=== PATIENT | male | born 1960 | race Caucasian/White ===

== ENCOUNTER 2016-07-12 22:04 | Observation (INO) | payer MEDICAID ==
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
[2016-07-12 22:39] LABS: ABSOLUTE BASOPHILS # (AUTO) 0.2 10^3/uL (0.0-0.2); ABSOLUTE EOSINOPHILS # (AUTO) 0.2 10^3/uL (0.0-0.6); ABSOLUTE LYMPHOCYTES (AUTO) 2.8 10^3/uL (0.5-4.7); ABSOLUTE MONOCYTES (AUTO) 0.9 10^3/uL (0.1-1.4); ABSOLUTE NEUT (AUTO) 12.1 10^3/uL (1.7-8.2); BASOPHILS % (AUTO) 1.3 % (0-2); EOSINOPHILS % (AUTO) 1.1 % (0-6); HEMATOCRIT 37.9 % (37.9-51.0); HGB HCT DIFFERENCE 1.1; LYMPHOCYTES % (AUTO) 17.5 % (13-45); MEAN CORPUSCULAR HEMOGLOBIN 30.3 pg (27.0-33.4); MEAN CORPUSCULAR HGB CONC 34.4 g/dL (32.0-36.0); MEAN CORPUSCULAR VOLUME 88 fl (80-97); MONOCYTES % (AUTO) 5.6 % (3-13); RED BLOOD COUNT 4.29 10^6/uL (4.35-5.55); RED CELL DISTRIBUTION WIDTH 13.5 % (11.5-14.0); SEGMENTED NEUTROPHILS % (AUTO) 74.5 % (42-78); WHITE BLOOD COUNT 16.3 10^3/uL (4.0-10.5)
[2016-07-12 22:43] LABS: APPEARANCE,URINE CLEAR; BILIRUBIN,URINE NEGATIVE (NEGATIVE); GLUCOSE, URINE NEGATIVE (NEGATIVE); KETONES,URINE NEGATIVE (NEGATIVE); LEUKOCYTE ESTERASE,URINE SMALL (NEGATIVE); NITRITE,URINE NEGATIVE (NEGATIVE); PROTEIN,URINE NEGATIVE (NEGATIVE); URINE SPECIFIC GRAVITY 1.003; UROBILINOGEN,URINE NEGATIVE mg/dL (<2.0)
[2016-07-12 22:55] LABS: ALANINE AMINOTRANSFERASE 21 U/L (21-72); ALBUMIN 4.2 g/dL (3.5-5.0); ALCOHOL < 10 mg/dL (NONE DETECTED); ALKALINE PHOSPHATASE 118 U/L (38-126); ANION GAP 9 (5-19); ASPARTATE AMINO TRANSFERASE 16 U/L (17-59); BILIRUBIN,DIRECT 0.2 mg/dL (0.0-0.4); BILIRUBIN,TOTAL 0.4 mg/dL (0.2-1.3); BLOOD UREA NITROGEN 13 mg/dL (7-20); CALCIUM 9.4 mg/dL (8.4-10.2); CARBON DIOXIDE 28 mmol/L (22-30); CHLORIDE 99 mmol/L (98-107); CREATININE RESULT 1.02 mg/dL (0.52-1.25); GLUCOSE 101 mg/dL (75-110); POTASSIUM 4.5 mmol/L (3.6-5.0); TOTAL PROTEIN 7.2 g/dL (6.3-8.2)
[2016-07-12 22:57] LABS: URINE BARBITURATES SCREEN NEGATIVE; URINE METHADONE SCREEN NEGATIVE; URINE OPIATES LOW NEGATIVE; URINE PHENCYCLIDINE SCREEN NEGATIVE
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
--- NOTE | 2016-07-12 23:30 | EKG REPORT ---
SEVERITY:- NORMAL ECG - SINUS RHYTHM : Confirmed by: Lele Welch 12-Jul-2016 23:29:25
[2016-07-13] MEDS ORDERED: LORAZEPAM INJ 2 MG/1 ML VIAL IM ONE (00:17)
[2016-07-13] MEDS ORDERED: LEVOFLOXACIN 750 MG TABLET PO ONE (04:41)
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
[2016-07-13] MEDS ORDERED: CLONAZEPAM 1 MG TABLET PO PRN (18:36)
[2016-07-13] MEDS ORDERED: (PENDING PHARMACY ID) (Dextran 70/Hypromellose [Artificial Tears] 1 DROP) OU PRN (18:36)
[2016-07-13] MEDS ORDERED: POLYVINYL ALCOHOL 1.4% OPH SOLN 15 ML OU PRN (18:42)
[2016-07-13] MEDS ORDERED: FINASTERIDE 5 MG TABLET PO ONE (19:00)
[2016-07-13] MEDS ORDERED: LORAZEPAM INJ 2 MG/1 ML VIAL IM PRN (20:15)
[2016-07-13] MEDS: CLONAZEPAM 1 MG TABLET PO SCH (21:12)
[2016-07-13] MEDS: HALOPERIDOL 5 MG TABLET PO SCH (21:13)
[2016-07-13] MEDS: MIRTAZAPINE 15 MG TABLET PO SCH (21:13)
[2016-07-13] MEDS: BENZTROPINE MESYLATE 1 MG TABLET PO SCH (21:13)
[2016-07-13] MEDS: TAMSULOSIN HCL 0.4 MG CAP.SR.24H PO SCH (21:13)
[2016-07-13] MEDS: GABAPENTIN 300 MG CAPSULE PO SCH (21:14)
[2016-07-13] MEDS ORDERED: LANSOPRAZOLE 30 MG TAB.RAP.DR PO ONE (21:30)
[2016-07-13] MEDS ORDERED: (PENDING PHARMACY ID) (Acetaminophen [Tylenol Extra Strength 500 Mg Tablet] 500 MG) PO SCH (22:00)
[2016-07-14] MEDS: ACETAMINOPHEN 325 MG TABLET PO SCH ×5 (01:40→22:31)
[2016-07-14] MEDS: GABAPENTIN 300 MG CAPSULE PO SCH ×3 (07:40→22:32)
[2016-07-14] MEDS: CLONAZEPAM 1 MG TABLET PO SCH ×3 (07:41→22:32)
[2016-07-14] MEDS: LANSOPRAZOLE 30 MG TAB.RAP.DR PO SCH (09:58)
[2016-07-14] MEDS: FINASTERIDE 5 MG TABLET PO SCH (09:58)
[2016-07-14] MEDS: BENZTROPINE MESYLATE 1 MG TABLET PO SCH ×2 (09:58→22:32)
[2016-07-14] MEDS: HALOPERIDOL 5 MG TABLET PO SCH ×2 (09:59→22:32)
[2016-07-14] MEDS ORDERED: (PENDING PHARMACY ID) (Clonazepam [Klonopin] 0.5 MG) PO SCH (10:00)
[2016-07-14] MEDS ORDERED: (PENDING PHARMACY ID) (Alfuzosin Hcl [Alfuzosin Hcl Er] 10 MG) PO SCH (18:00)
[2016-07-14] MEDS ORDERED: LORAZEPAM INJ 2 MG/1 ML VIAL ONE (18:22)
[2016-07-14] MEDS: TAMSULOSIN HCL 0.4 MG CAP.SR.24H PO SCH (22:30)
[2016-07-14] MEDS: MIRTAZAPINE 15 MG TABLET PO SCH (22:32)
[2016-07-15] MEDS: CLONAZEPAM 1 MG TABLET PO SCH ×2 (05:53→14:00)
[2016-07-15] MEDS: GABAPENTIN 300 MG CAPSULE PO SCH ×2 (05:53→14:01)
[2016-07-15] MEDS: ACETAMINOPHEN 325 MG TABLET PO SCH ×2 (05:53→14:04)
[2016-07-15] MEDS: HALOPERIDOL 5 MG TABLET PO SCH (09:59)
[2016-07-15] MEDS: BENZTROPINE MESYLATE 1 MG TABLET PO SCH (09:59)
[2016-07-15] MEDS: FINASTERIDE 5 MG TABLET PO SCH (10:00)
[2016-07-15] MEDS: LANSOPRAZOLE 30 MG TAB.RAP.DR PO SCH (10:00)
[2016-07-15 11:59] VITALS: BP 122/73
== END 2016-07-15 15:00 | disposition home health service (06) ==
LOC: ER 22:04 → UNDOADMIN 07-13 04:54 → EH 07-13 04:54 → 4S 07-13 06:39 → EH 07-13 06:39 → INTOOBSV 07-13 06:51 → 4S 07-13 06:51 → 4N 07-13 14:26
PROVIDERS: ADMIT Internal Medicine; ATTEND Internal Medicine
PROC: 3E033GC Introduction of Other Therapeutic Substance into Peripheral Vein, Percutaneous Approach (ICD-10-PCS; principal; 2016-07-12)
DX: J18.9 Pneumonia, unspecified organism (principal); F03.91 Unspecified dementia, unspecified severity, with behavioral disturbance; F20.9 Schizophrenia, unspecified; J44.9 Chronic obstructive pulmonary disease, unspecified; J45.909 Unspecified asthma, uncomplicated; K21.9 Gastro-esophageal reflux disease without esophagitis; F17.200 Nicotine dependence, unspecified, uncomplicated
CPT/HCPCS: 93005; 99285; 96374; 36415; 87040; 80307 ×4; 85025; 80053; 81001; 71010; 93010; G0378 ×3; J3490 ×23; J2060 ×2

== ENCOUNTER 2018-08-08 22:22 | Emergency (ER) | payer MEDICAID ==
[2018-08-09] MEDS ORDERED: ACETAMINOPHEN 325 MG TABLET PO ONE (02:55)
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
[2018-08-09 04:42] VITALS: BP 149/88
== END 2018-08-09 04:42 | disposition home or self-care (01) ==
LOC: ER 22:22
DX: S09.93XA Unspecified injury of face, initial encounter (principal); Y04.2XXA Assault by strike against or bumped into by another person, initial encounter; Y92.199 Unspecified place in other specified residential institution as the place of occurrence of the external cause
CPT/HCPCS: 99283; J3490

== ENCOUNTER 2019-11-01 13:14 | Inpatient (IN) | payer MEDICAID ==
[2019-11-01 13:58] LABS: ABSOLUTE BASOPHILS # (AUTO) 0.1 10^3/uL (0.0-0.2); ABSOLUTE EOSINOPHILS # (AUTO) 0.1 10^3/uL (0.0-0.6); ABSOLUTE LYMPHOCYTES (AUTO) 1.3 10^3/uL (0.5-4.7); ABSOLUTE MONOCYTES (AUTO) 0.4 10^3/uL (0.1-1.4); ABSOLUTE NEUT (AUTO) 5.4 10^3/uL (1.7-8.2); BASOPHILS % (AUTO) 1.3 % (0-2); EOSINOPHILS % (AUTO) 1.4 % (0-6); HEMATOCRIT 39.7 % (37.9-51.0); HEMOGLOBIN 13.7 g/dL (13.5-17.0); LYMPHOCYTES % (AUTO) 18.2 % (13-45); MEAN CORPUSCULAR HEMOGLOBIN 29.9 pg (27.0-33.4); MEAN CORPUSCULAR HGB CONC 34.5 g/dL (32.0-36.0); MEAN CORPUSCULAR VOLUME 87 fl (80-97); MONOCYTES % (AUTO) 5.7 % (3-13); PLATELET COUNT 290 10^3/uL (150-450); RED BLOOD COUNT 4.57 10^6/uL (4.35-5.55); RED CELL DISTRIBUTION WIDTH 14.4 % (11.5-14.0); SEGMENTED NEUTROPHILS % (AUTO) 73.4 % (42-78); TOTAL CELLS COUNTED % (AUTO) 100 %; WHITE BLOOD COUNT 7.4 10^3/uL (4.0-10.5)
--- NOTE | 2019-11-01 14:06 | RADIOLOGY REPORT (SQ) ---
EXAM DESCRIPTION: CHEST SINGLE VIEW IMAGES COMPLETED DATE/TIME: 11/01/2019 1:44 pm REASON FOR STUDY: cough COMPARISON: 05/20/2015 EXAM PARAMETERS: NUMBER OF VIEWS: One view. TECHNIQUE: Single frontal radiographic view of the chest acquired. RADIATION DOSE: NA LIMITATIONS: None. FINDINGS: LUNGS AND PLEURA: There is hyperexpansion. No consolidations, pneumothorax or effusion. MEDIASTINUM AND HILAR STRUCTURES: No masses. Contour normal. HEART AND VASCULAR STRUCTURES: Heart normal in size. Normal vasculature. BONES: No acute findings. HARDWARE: None in the chest. OTHER: No other significant finding. IMPRESSION: COPD. No acute findings. TECHNICAL DOCUMENTATION: JOB ID: [id number] 2010 [employer]- All Rights Reserved Reading location - IP/workstation name: [email or web address]
[2019-11-01 14:18] LABS: ALBUMIN 3.8 g/dL (3.5-5.0); ALKALINE PHOSPHATASE 75 U/L (38-126); ANION GAP 10 (5-19); ASPARTATE AMINO TRANSFERASE 15 U/L (17-59); BILIRUBIN,TOTAL 0.4 mg/dL (0.2-1.3); BLOOD UREA NITROGEN 9 mg/dL (7-20); CALCIUM 9.3 mg/dL (8.4-10.2); CARBON DIOXIDE 24 mmol/L (22-30); CHLORIDE 94 mmol/L (98-107); GLUCOSE 113 mg/dL (75-110); POTASSIUM 4.5 mmol/L (3.6-5.0); TOTAL PROTEIN 6.7 g/dL (6.3-8.2)
--- NOTE | 2019-11-01 17:06 | ER Document Report ---
ED General - General Chief Complaint: Abnormal Lab Results Stated Complaint: ABNORMAL LABS Time Seen by Provider: 11/01/19 14:32 Primary Care Provider: JANAK FUNG MD [Primary Care Provider] - Follow up as needed Notes: This 59-year-old man presents to the emergency department with a history of abnormal labs at the [facility]. He has a past medical history of GERD, paranoid schizophrenia, incontinence, narcissistic personality disorder, pulmonary fibrosis, obesity and asthma. Apparently the patient is sodium was found to be very low at 122 according to the note from the [facility] fa cility. TRAVEL OUTSIDE OF THE [place] IN LAST 30 DAYS: No - Related Data Allergies/Adverse Reactions: No Known Allergies Allergy (Verified 08/08/18 22:28) Past Medical History - Social History Smoking Status: Unknown if Ever Smoked Family History: Reviewed & Not Pertinent - Past Medical History Cardiac Medical History: Denies: Hx Coronary Artery Disease, Hx Heart Attack, Hx Hypertension Pulmonary Medical History: Reports: Hx Asthma, Hx COPD Denies: Hx Bronchitis, Hx Pneumonia Neurological Medical History: Denies: Hx Cerebrovascular Accident, Hx Seizures Renal/ Medical History: Denies: Hx Peritoneal Dialysis GI Medical History: Reports: Hx Gastroesophageal Reflux Disease. Denies: Hx Hepatitis, Hx Hiatal Hernia, Hx Ulcer Musculoskeletal Medical History: Reports Hx Arthritis - (neck) Psychiatric Medical History: Reports: Hx Schizoaffective Disorder Denies: Hx Depression Infectious Medical History: Denies: Hx Hepatitis Past Surgical History: Denies: Hx Open Heart Surgery, Hx Pacemaker - Immunizations Hx Diphtheria, Pertussis, Tetanus Vaccination: Yes Review of Systems - Review of Systems Notes: Constitutional: Negative for fever. HENT: Negative for sore throat. Eyes: Negative for visual changes. Cardiovascular: Negative for chest pain. Respiratory: Negative for shortness of breath. Gastrointestinal: Negative for abdominal pain, vomiting or diarrhea. Genitourinary: Negative for dysuria. Musculoskeletal: Negative for back pain. Skin: Negative for rash. Neurological: Negative for headaches, weakness or numbness. 10 point ROS negative except as marked above and in HPI. Physical Exam - Vital signs Vitals: BP Pulse Ox 119/85 99 11/01/19 13:21 11/01/19 13:21 - Notes Notes: PHYSICAL EXAMINATION: Physical Exam: General: Well-nourished well-developed 59-year-old obese man in no acute distress HEENT: NC/AT, pupils equal round and reactive to light, MM moist,nares clear, oropharynx clear, airway patent Neck: supple, no adenopathy, no masses. Good range of motion Lungs: clear, no wheezing, no rales no rhonchi CVS: Regular rate and rhythm no murmur gallop or rub Abdomen: Soft, active, nontender, no masses, no hepatosplenomegaly Ext: No edema, clubbing or cyanosis. Neuro: Alert and responsive, moving all 4 extremities on command, cranial nerves intact, no focal findings Skin: Intact no open lesions, no rash Course - Re-evaluation Re-evalutation: 11/01/19 17:07 Patient noted to have a sodium of 127.7, higher than the 122 noted at the [facility]. - Vital Signs Vital signs: Temp Pulse Resp BP Pulse Ox 98.6 F 14 130/91 H 98 11/01/19 13:44 11/01/19 16:01 11/01/19 16:00 11/01/19 16:01 - Laboratory Result Diagrams: 11/01/19 13:30 11/01/19 13:30 Laboratory results interpreted by me: 11/01/19 11/01/19 13:30 13:30 RDW 14.4 H Sodium 127.9 L Chloride 94 L Glucose 113 H AST 15 L Discharge - Discharge Clinical Impression: Hyponatremia syndrome Condition: Good Disposition: ADMITTED OBSERVATION Admitting Provider: Roxy (Hospitalist) Unit Admitted: Telemetry Referrals: JANAK FUNG MD [Primary Care Provider] - Follow up as needed
--- NOTE | 2019-11-01 17:28 | EKG REPORT ---
SEVERITY:- NORMAL ECG - SINUS RHYTHM : Confirmed by: Clem Waters MD 01-Nov-2019 17:27:38
[2019-11-01] MEDS ORDERED: ACETAMINOPHEN 325 MG TABLET PO PRN (19:21)
[2019-11-01] MEDS ORDERED: MAG HYDROX/AL HYDROX/SIMETH SUSP 30 ML UDCUP PO PRN (19:21)
[2019-11-01] MEDS ORDERED: ONDANSETRON HCL INJ/PF 4 MG/2 ML SDV IV PRN (19:21)
[2019-11-01] MEDS ORDERED: ALBUTEROL SULFATE 0.083% NEB 2.5 MG/3 ML AMPUL NEB PRN (19:21)
[2019-11-01] MEDS ORDERED: HYDRALAZINE HCL INJ/PF 20 MG/1 ML SDV IV PRN (19:28)
--- NOTE | 2019-11-01 19:37 | PDOC H&P ---
History of Present Illness Admission Date/PCP: 11/01/19 18:16 JANAK FUNG MD Patient complains of: abnormal labs History of Present Illness: HU GARCIA is a 59 year old male with a past medical history significant for Schizophrenia, narcissistic personality disorder, BPH, GERD who presented to the emergency department today with a complaint of abnormal labs. Evaluation in the ED revealed HTN but otherwise nml vital signs, hyponatremia 127.9, nml CBC, benign CXR and EKG. Upon my evaluation, patient is alert and oriented to self, place, and situation. He is ambulatory. Conversational, socially appropriate. He denies all complaints. He is referred to the hospitalist service for admission and management of Hyponatremia. Past Medical History Cardiac Medical History: Denies: Coronary Artery Disease, Myocardial Infarction, Hypertension Pulmonary Medical History: Reports: Asthma, Chronic Obstructive Pulmonary Disease (COPD) Denies: Bronchitis, Pneumonia Neurological Medical History: Denies: Ischemic CVA, Seizures Endocrine Medical History: Reports: None Renal/ Medical History: Reports: None Malignancy Medical History: Reports: None GI Medical History: Reports: Gastroesophageal Reflux Disease Denies: Hepatitis, Hiatal Hernia Musculoskeltal Medical History: Reports: Arthritis Skin Medical History: Reports: None Psychiatric Medical History: Reports: Schizoaffective Disorder Denies: Depression Traumatic Medical History: Reports: None Hematology: Denies: Anemia, Sickle Cell Disease Infectious Medical History: Reports: None Past Surgical History Past Surgical History: Denies: Pacemaker Social History Information Source: Patient Lives with: [facility] Smoking Status: Former Smoker Frequency of Alcohol Use: None Hx Recreational Drug Use: No Drugs: None Hx Prescription Drug Abuse: No - Advance Directive Resuscitation Status: Full Code Family History Family History: None Parental Family History Reviewed: No - Patient unable to report Children Family History Reviewed: Unknown Sibling(s) Family History Reviewed.: Unknown Medication/Allergy Home Medications: Acetaminophen [Tylenol Extra Strength 500 mg Tablet] 500 mg PO QID 07/13/16 Alfuzosin HCl [Alfuzosin HCl ER] 10 mg PO QPM 07/13/16 Benztropine Mesylate [Cogentin 1 mg Tablet] 1 mg PO Q12 07/13/16 Clonazepam [Klonopin 1 mg Tablet] 1 mg PO BIDP PRN 07/13/16 Clonazepam [Klonopin] 0.5 mg PO TID 07/13/16 Dextran 70/Hypromellose [Artificial Tears] 1 drop OU Q4HP PRN 07/13/16 Finasteride [Proscar 5 mg Tablet] 5 mg PO DAILY 07/13/16 Gabapentin [Neurontin 300 mg Capsule] 600 mg PO Q8 07/13/16 Haloperidol 20 mg PO BID 07/13/16 Mirtazapine [Remeron 15 mg Tablet] 7.5 mg PO QHS 07/13/16 Omeprazole 40 mg PO DAILY 07/13/16 Allergies/Adverse Reactions: No Known Allergies Allergy (Verified 08/08/18 22:28) Review of Systems Constitutional: ABSENT: chills, fever(s), headache(s), weight gain, weight loss Eyes: ABSENT: visual disturbances Ears: ABSENT: hearing changes Cardiovascular: ABSENT: chest pain, dyspnea on exertion, edema, orthropnea, palpitations Respiratory: ABSENT: cough, hemoptysis Gastrointestinal: ABSENT: abdominal pain, constipation, diarrhea, hematemesis, hematochezia, nausea, vomiting Genitourinary: ABSENT: dysuria, hematuria Musculoskeletal: ABSENT: joint swelling Integumentary: ABSENT: rash, wounds Neurological: ABSENT: abnormal gait, abnormal speech, confusion, dizziness, focal weakness, syncope Psychiatric: ABSENT: anxiety, depression, homidical ideation, suicidal ideation Endocrine: ABSENT: cold intolerance, heat intolerance, polydipsia, polyuria Hematologic/Lymphatic: ABSENT: easy bleeding, easy bruising Physical Exam Vital Signs: Temp Pulse Resp BP Pulse Ox 98.6 F 15 178/111 H 100 11/01/19 13:44 11/01/19 18:01 11/01/19 18:00 11/01/19 18:01 Intake & Output 10/31/19 11/01/19 11/02/19 06:59 06:59 06:59 Weight 86.5 kg General appearance: PRESENT: no acute distress, cooperative, well-developed, well-nourished - overweight Head exam: PRESENT: atraumatic, normocephalic Eye exam: PRESENT: conjunctiva pink, EOMI, PERRLA. ABSENT: scleral icterus Ear exam: PRESENT: normal external ear exam Mouth exam: PRESENT: moist, tongue midline Neck exam: ABSENT: carotid bruit, JVD, lymphadenopathy, thyromegaly Respiratory exam: PRESENT: clear to auscultation alan, symmetrical, unlabored. ABSENT: rales, rhonchi, wheezes Cardiovascular exam: PRESENT: RRR, +S1, +S2. ABSENT: diastolic murmur, rubs, systolic murmur Vascular exam: PRESENT: normal capillary refill Extremities exam: PRESENT: full ROM. ABSENT: calf tenderness, clubbing, pedal edema Neurological exam: PRESENT: alert, awake, oriented to person, oriented to place, oriented to situation, CN II-XII grossly intact. ABSENT: motor sensory deficit Psychiatric exam: PRESENT: flat affect, normal mood. ABSENT: homicidal ideation, suicidal ideation Skin exam: PRESENT: dry, intact, warm. ABSENT: cyanosis, rash Results Laboratory Results: 11/01/19 13:30 11/01/19 13:30 11/01/19 11/01/19 13:30 13:30 WBC 7.4 RBC 4.57 Hgb 13.7 Hct 39.7 MCV 87 MCH 29.9 MCHC 34.5 RDW 14.4 H Plt Count 290 Seg Neutrophils % 73.4 Sodium 127.9 L Potassium 4.5 Chloride 94 L Carbon Dioxide 24 Anion Gap 10 BUN 9 Creatinine 1.15 Est GFR ( Amer) > 60 Glucose 113 H Calcium 9.3 Total Bilirubin 0.4 AST 15 L Alkaline Phosphatase 75 Total Protein 6.7 Albumin 3.8 Impressions: Chest X-Ray 11/01/19 00:00 IMPRESSION: COPD. No acute findings. Assessment and Plan - Diagnosis (1) Hyponatremia Is this a current diagnosis for this admission?: Yes Plan: Patient is admitted to the medical floor on continuous cardiac telemetry. He is placed on a regular diet; fluid restricted to 1.5 L daily. We will continue his home medication regiment pending mental health review and recommendations. Follow-up chemistry. (2) Schizophrenia Is this a current diagnosis for this admission?: Yes Plan: Continue home regimen. Mental Health consultation for medication review in setting of Hyponatremia. Mild-moderate chronic hyponatremia w/o symptoms may be preferable to uncontrolled schizophrenic/personality disorder symptoms. (3) Hypertension Is this a current diagnosis for this admission?: Yes Plan: Not on home medication regiment. IV hydralazine as needed for BP control. Monitor; may need to start oral antihypertensive. (4) BPH (benign prostatic hyperplasia) Qualifiers: Lower urinary tract symptom presence: symptoms absent Qualified Code(s): N40.0 - Benign prostatic hyperplasia without lower urinary tract symptoms Is this a current diagnosis for this admission?: Yes Plan: Continue home dose proscar. - Time Anticipated discharge: Home Within: within 48 hours
[2019-11-01] MEDS: BENZTROPINE MESYLATE 1 MG TABLET PO SCH (21:06)
[2019-11-01] MEDS: HEPARIN SOD (PORCINE) 5,000 UNIT/ML 1 ML VIAL SUBCUT SCH (21:06)
[2019-11-01] MEDS: CLONAZEPAM 1 MG TABLET PO SCH (21:06)
[2019-11-01] MEDS ORDERED: HALOPERIDOL 5 MG TABLET PO SCH (22:00)
[2019-11-01] MEDS ORDERED: MIRTAZAPINE 15 MG TABLET PO SCH (22:00)
[2019-11-01 23:38] LABS: AMORPHOUS SEDIMENT,URINE TRACE /HPF; APPEARANCE,URINE CLEAR; BILIRUBIN,URINE NEGATIVE (NEGATIVE); COLOR,URINE STRAW; GLUCOSE, URINE NEGATIVE (NEGATIVE); KETONES,URINE NEGATIVE (NEGATIVE); LEUKOCYTE ESTERASE,URINE LARGE (NEGATIVE); NITRITE,URINE NEGATIVE (NEGATIVE); PROTEIN,URINE NEGATIVE (NEGATIVE); URINE SPECIFIC GRAVITY 1.003; UROBILINOGEN,URINE NEGATIVE mg/dL (<2.0)
[2019-11-01 23:43] LABS: OSMOLALITY,URINE 134 mOsm/kg (300-900)
[2019-11-01 23:51] LABS: URINE SODIUM 25 mmol/L (30-90)
[2019-11-02] MEDS: HEPARIN SOD (PORCINE) 5,000 UNIT/ML 1 ML VIAL SUBCUT SCH ×3 (05:11→21:06)
[2019-11-02] MEDS: PANTOPRAZOLE SODIUM 40 MG TABLET.DR PO SCH (05:13)
[2019-11-02] MEDS: CLONAZEPAM 1 MG TABLET PO SCH (07:00)
[2019-11-02] MEDS: BENZTROPINE MESYLATE 1 MG TABLET PO SCH (09:48)
[2019-11-02] MEDS: DOCUSATE SODIUM 100 MG CAPSULE PO SCH (09:48)
[2019-11-02] MEDS ORDERED: HALOPERIDOL 5 MG TABLET PO SCH (10:00)
[2019-11-02] MEDS: HYDRALAZINE HCL 10 MG TABLET PO SCH ×2 (11:51→17:26)
[2019-11-02] MEDS: LISINOPRIL 10 MG TABLET PO SCH (11:52)
[2019-11-02] MEDS: FLUTICASONE/VILANTEROL 200-25 MCG/DOSE IH SCH (11:53)
[2019-11-02] MEDS: DIVALPROEX SODIUM 125 MG CAP.SPRINK PO SCH (11:53)
[2019-11-02] MEDS ORDERED: (PENDING PHARMACY ID) (Clonazepam [Klonopin] 0.5 MG) PO SCH (12:00)
[2019-11-02] MEDS ORDERED: CLONAZEPAM 1 MG TABLET PO SCH (12:00)
[2019-11-02 12:02] LABS: ANION GAP 9 (5-19); BLOOD UREA NITROGEN 11 mg/dL (7-20); CALCIUM 9.4 mg/dL (8.4-10.2); CARBON DIOXIDE 26 mmol/L (22-30); CHLORIDE 88 mmol/L (98-107); CHOLESTEROL 113.85 mg/dL (0-200); GLUCOSE 100 mg/dL (75-110); TRIGLYCERIDES 88 mg/dL (<150)
[2019-11-02 12:12] LABS: DIRECT LDL 43 mg/dL (<100)
[2019-11-02 12:14] LABS: POTASSIUM 4.7 mmol/L (3.6-5.0)
[2019-11-02] MEDS ORDERED: SODIUM CHLORIDE 1 GM TABLET PO ONE (13:00)
--- NOTE | 2019-11-02 13:51 | PSYCHOLOGICAL NOTE ---
Psych Note - Psych Note Date seen by psych provider: 11/02/19 Time seen by psych provider: 13:30 Psych Note: Reason for consult: Medication recommendations Patient discloses that he does not know exactly why he is here. Patient confirms he remembers being told there was concerns about his salt however states that this was yesterday. He confirms he understands now that this is still the current problem. He denies any psychiatric concerns at this time. Patient is alert and orientated to person, place, time and circumstance. Mood is euthymic with flat affect (patient has significant mental health history; affect probable baseline). Patient denies suicidal and homicidal ideation. Delusions are currently absent and behaviors congruent with an intact reality based presentation i.e. organized and linear thought process. Eye contact was well maintained. Conversational speech is slow and halting but easily understood. Intellectual abilities appear to be within the average range. Attention and concentration are fair. Insight, judgment, impulse control is fair. Medication recommendations per [facility]'s contracted psychiatrist Dr. Elmo TREJO are as follows Please discontinue home medication of Seroquel and Remeron Please decrease home medication of Haldol to 5 mg twice daily Please decrease home medication of Cogentin to 1 mg daily Please use home medication of Klonopin as a as needed only Impression\plan: Patient is cleared from acute psychiatric services. Patient is currently a medical patient due to hyponatremia. Medication recommendations were requested due to concerns that this could be contributing to his medical presentation. Medication recommendations have been provided. Though the psychiatric medications could be contributing to patient's current medical presentation, the patient not taking in fluids appropriately could also be a contributing factor. At this time the patient is denying any difficulty with hallucinations and is not demonstrating any behaviors of responding to internal stimuli. With medication adjustments, patient may experience through psychiatric symptoms. Please contact the behavioral health team for reconsult if this does become an issue. Dr. Lujan was consulted to care management of this patient; attending physicians in agreement with recommendations and disposition.
--- NOTE | 2019-11-02 14:22 | PDOC PROGRESS REPORT ---
Subjective Progress Note for:: 11/02/19 Subjective:: HU GARCIA is a 59 year old male with a past medical history significant for Schizophrenia, narcissistic personality disorder, BPH, GERD who was admitted 11/01/2019 for hyponatremia. Patient was seen on morning rounds. He is found ambulating in his room. He is alert and oriented to self, place, situation. At the moment, he is conversational and socially appropriate. He tells me that he is very thirsty and admits that he has had 2 to 3 cups of water from the sink. Otherwise, he states that he is feeling well and denies all symptoms. He tells me that I must be mistaken when I mentioned that his sodium is low. He denies headaches, dizziness, fatigue, chest pain, palpitations, dyspnea, abdominal pain, nausea and vomiting. He has no questions or concerns at this time; states that he wants to go home. Per nursing, patient has refused medications on multiple attempts (eventually did take a.m. medications) refused lab draw twice, and has removed his IV and declining to have one restarted. Reason For Visit: HYPONATREMIA Physical Exam Vital Signs: Temp Pulse Resp BP Pulse Ox 97.3 F 81 12 167/96 H 100 11/02/19 12:00 11/02/19 12:00 11/02/19 12:00 11/02/19 12:00 11/02/19 12:00 Intake & Output 11/01/19 11/02/19 11/03/19 06:59 06:59 06:59 Intake Total 444 948 Output Total 200 Balance 244 948 Weight 84.4 kg General appearance: PRESENT: no acute distress, well-developed, well-nourished - Overweight. ABSENT: cooperative Head exam: PRESENT: atraumatic, normocephalic Eye exam: PRESENT: conjunctiva pink, EOMI, PERRLA. ABSENT: scleral icterus Mouth exam: PRESENT: moist, tongue midline Respiratory exam: PRESENT: clear to auscultation alan, symmetrical, unlabored. ABSENT: rales, rhonchi, wheezes Cardiovascular exam: PRESENT: RRR. ABSENT: diastolic murmur, rubs, systolic murmur Vascular exam: PRESENT: normal capillary refill Extremities exam: PRESENT: full ROM. ABSENT: calf tenderness, clubbing, pedal edema Musculoskeletal exam: PRESENT: ambulatory Neurological exam: PRESENT: alert, awake, oriented to person, oriented to place, oriented to situation, CN II-XII grossly intact. ABSENT: motor sensory deficit Psychiatric exam: PRESENT: flat affect, normal mood. ABSENT: homicidal ideation, suicidal ideation Skin exam: PRESENT: dry, intact, warm. ABSENT: cyanosis, rash Results Laboratory Results: 11/01/19 13:30 11/02/19 11:20 11/01/19 11/01/19 11/01/19 13:30 20:01 23:20 Sodium 127.9 L Potassium 4.5 Chloride 94 L Carbon Dioxide 24 Anion Gap 10 BUN 9 Creatinine 1.15 Est GFR ( Amer) > 60 Glucose 113 H Serum Osmolality 267 L Calcium 9.3 Total Bilirubin 0.4 AST 15 L Alkaline Phosphatase 75 Total Protein 6.7 Albumin 3.8 Triglycerides Cholesterol LDL Cholesterol Direct VLDL Cholesterol HDL Cholesterol TSH Urine Color Urine Appearance Urine pH Ur Specific [place] Urine Protein Urine Glucose (UA) Urine Ketones Urine Blood Urine Nitrite Ur Leukocyte Esterase Urine WBC (Auto) Urine RBC (Auto) Urine Osmolality 134 L 11/01/19 11/02/19 11/02/19 23:20 11:20 11:20 Sodium 122.8 L Potassium 4.7 Chloride 88 L Carbon Dioxide 26 Anion Gap 9 BUN 11 Creatinine 1.06 Est GFR ( Amer) > 60 Glucose 100 Serum Osmolality Calcium 9.4 Total Bilirubin AST Alkaline Phosphatase Total Protein Albumin Triglycerides 88 Cholesterol 113.85 LDL Cholesterol Direct 43 VLDL Cholesterol 18.0 HDL Cholesterol 56 TSH 0.72 Urine Color STRAW Urine Appearance CLEAR Urine pH 7.0 Ur Specific [place] 1.003 Urine Protein NEGATIVE Urine Glucose (UA) NEGATIVE Urine Ketones NEGATIVE Urine Blood SMALL H Urine Nitrite NEGATIVE Ur Leukocyte Esterase LARGE H Urine WBC (Auto) 27 Urine RBC (Auto) 2 Urine Osmolality Impressions: Chest X-Ray 11/01/19 00:00 IMPRESSION: COPD. No acute findings. Assessment and Plan - Diagnosis (1) Hyponatremia Is this a current diagnosis for this admission?: Yes Plan: Worsened; 127.9-> 122.8 Patient is admitted to the medical floor on continuous cardiac telemetry. He is placed on a regular diet; fluid restricted to 1 L daily. Mental health consultation has been obtained; psychiatric medications adjusted per their recommendations. I have asked nursing to to restrict the patient's access to water in his room; remove his cup and water jug. Document any water observed obtained from the sink. Patient currently refusing IV fluids; will provide NaCl 2 gm p.o. Strict I&Os Serial chemistry. (2) Schizophrenia Is this a current diagnosis for this admission?: Yes Plan: Mental Health consultation for medication review in setting of Hyponatremia. Mild-moderate chronic hyponatremia w/o symptoms may be preferable to uncontrolled schizophrenic/personality disorder symptoms. Medications adjusted per their recommendations. (3) Hypertension Is this a current diagnosis for this admission?: Yes Plan: Continues to be hypertensive. Not on home medication regiment. We will start p.o. amlodipine. IV hydralazine as needed for BP control. (4) BPH (benign prostatic hyperplasia) Qualifiers: Lower urinary tract symptom presence: symptoms absent Qualified Code(s): N40.0 - Benign prostatic hyperplasia without lower urinary tract symptoms Is this a current diagnosis for this admission?: Yes Plan: Continue home dose proscar. - Time Time Spent with patient: 25-34 minutes Medications reviewed and adjusted accordingly: Yes Anticipated discharge: Home Within: Other
[2019-11-02 16:19] LABS: ANION GAP 10 (5-19); BLOOD UREA NITROGEN 16 mg/dL (7-20); CARBON DIOXIDE 27 mmol/L (22-30); CHLORIDE 82 mmol/L (98-107); GLUCOSE 98 mg/dL (75-110); POTASSIUM 4.5 mmol/L (3.6-5.0)
[2019-11-02] MEDS ORDERED: NORMAL SALINE 1000 ML 1,000 ML IV PRN (16:43)
[2019-11-02] MEDS: GABAPENTIN 300 MG CAPSULE PO SCH (17:26)
[2019-11-02] MEDS: DIVALPROEX SODIUM 250 MG TABLET.DR PO SCH (17:27)
[2019-11-02] MEDS ORDERED: QUETIAPINE FUMARATE 25 MG TABLET PO SCH (18:00)
[2019-11-02] MEDS: HALOPERIDOL 5 MG TABLET PO SCH (21:08)
[2019-11-02] MEDS ORDERED: AMLODIPINE BESYLATE 5 MG TABLET PO SCH (22:00)
[2019-11-03] MEDS: CLONAZEPAM 1 MG TABLET PO PRN ×2 (02:08→21:50)
[2019-11-03 02:50] LABS: ANION GAP 9 (5-19); BLOOD UREA NITROGEN 15 mg/dL (7-20); CALCIUM 9.5 mg/dL (8.4-10.2); CARBON DIOXIDE 25 mmol/L (22-30); CHLORIDE 88 mmol/L (98-107); GLUCOSE 106 mg/dL (75-110); POTASSIUM 4.2 mmol/L (3.6-5.0)
[2019-11-03] MEDS ORDERED: HALOPERIDOL PO SCH (06:00)
[2019-11-03] MEDS ORDERED: (PENDING PHARMACY ID) (Lisinopril [Lisinopril] 20 MG) PO SCH (06:00)
[2019-11-03] MEDS ORDERED: (PENDING PHARMACY ID) (Diltiazem Hcl [Diltiazem 24hr Er] 180 MG) PO SCH (06:00)
[2019-11-03] MEDS: PANTOPRAZOLE SODIUM 40 MG TABLET.DR PO SCH (07:58)
[2019-11-03] MEDS: HEPARIN SOD (PORCINE) 5,000 UNIT/ML 1 ML VIAL SUBCUT SCH ×3 (07:58→21:48)
[2019-11-03] MEDS ORDERED: GUAIFENESIN/D-METHORPHAN (200-20 MG) SYRUP 10 ML PO PRN (09:49)
[2019-11-03] MEDS: DILTIAZEM HCL 180 MG CAPSULE.CR PO SCH (10:20)
[2019-11-03] MEDS: BENZTROPINE MESYLATE 1 MG TABLET PO SCH (10:20)
[2019-11-03] MEDS: HYDRALAZINE HCL 10 MG TABLET PO SCH ×3 (10:20→17:37)
[2019-11-03] MEDS: FINASTERIDE 5 MG TABLET PO SCH (10:21)
[2019-11-03] MEDS: LISINOPRIL 10 MG TABLET PO SCH (10:21)
[2019-11-03] MEDS: HALOPERIDOL 5 MG TABLET PO SCH ×2 (10:21→21:47)
[2019-11-03] MEDS: FLUTICASONE/VILANTEROL 200-25 MCG/DOSE IH SCH (10:21)
[2019-11-03] MEDS: GABAPENTIN 300 MG CAPSULE PO SCH ×2 (10:24→17:37)
[2019-11-03] MEDS: DOCUSATE SODIUM 100 MG CAPSULE PO SCH (10:24)
[2019-11-03] MEDS: DIVALPROEX SODIUM 250 MG TABLET.DR PO SCH ×2 (10:24→17:37)
[2019-11-03] MEDS: DIVALPROEX SODIUM 125 MG CAP.SPRINK PO SCH (10:25)
[2019-11-03] MEDS ORDERED: IPRATROPIUM/ALBUTEROL 0.5-2.5 MG/3 ML AMPUL NEB ONE (11:30)
--- NOTE | 2019-11-03 13:02 | RADIOLOGY REPORT (SQ) ---
EXAM DESCRIPTION: CHEST SINGLE VIEW IMAGES COMPLETED DATE/TIME: 11/03/2019 12:50 pm REASON FOR STUDY: dyspnea, cough COMPARISON: Chest x-ray 11/01/2019, 05/20/2015, 04/15/2015. EXAM PARAMETERS: NUMBER OF VIEWS: One view. TECHNIQUE: Single frontal radiographic view of the chest acquired. RADIATION DOSE: NA LIMITATIONS: None. FINDINGS: LUNGS AND PLEURA: No consolidation, pneumothorax or pleural effusion. Hyperlucent lungs a re suggestive of emphysema. MEDIASTINUM AND HILAR STRUCTURES: No masses. Contour normal. HEART AND VASCULAR STRUCTURES: Heart normal in size. Normal vasculature. BONES: No acute findings. HARDWARE: None in the chest. IMPRESSION: NO ACUTE RADIOGRAPHIC FINDING IN THE CHEST. EMPHYSEMA. TECHNICAL DOCUMENTATION: JOB ID: [id number] [employer]- All Rights Reserved Reading location - IP/workstation name: [email or web address]
[2019-11-03] MEDS: IPRATROPIUM/ALBUTEROL 0.5-2.5 MG/3 ML AMPUL NEB SCH ×2 (14:08→20:18)
--- NOTE | 2019-11-03 14:42 | PDOC PROGRESS REPORT ---
Subjective Progress Note for:: 11/03/19 Subjective:: HU GARCIA is a 59 year old male with a past medical history significant for Schizophrenia, narcissistic personality disorder, BPH, GERD who was admitted 11/01/2019 for hyponatremia. Patient was seen on morning rounds. He is found ambulating in his room. He is alert and oriented to self, place, situation. He is conversational and socially appropriate. He complains of shortness of breath and a persistent, nonproductive cough. States, "its my smoker's cough." He asks for "something to help me breath." Vital signs are stable, SpO2 >98% on room air. He denies headaches, dizziness, fatigue, chest pain, palpitations, abdominal pain, nausea and vomiting. He has no other questions or concerns at this time. Per nursing, patient continues to intermittently refuse medications, labs, and vital signs. Reason For Visit: HYPONATREMIA Physical Exam Vital Signs: Temp Pulse Resp BP Pulse Ox 98.4 F 86 16 154/96 H 100 11/03/19 08:00 11/03/19 11:35 11/03/19 11:35 11/03/19 08:00 11/03/19 11:35 Intake & Output 11/02/19 11/03/19 11/04/19 06:59 06:59 06:59 Intake Total 444 1348 270 Output Total 200 Balance 244 1348 270 Weight 84.4 kg 86.9 kg General appearance: PRESENT: no acute distress, well-developed, well-nourished - Overweight Head exam: PRESENT: atraumatic, normocephalic Eye exam: PRESENT: conjunctiva pink, EOMI, PERRLA. ABSENT: scleral icterus Mouth exam: PRESENT: moist, tongue midline Respiratory exam: PRESENT: rhonchi, symmetrical, unlabored, wheezes. ABSENT: rales Cardiovascular exam: PRESENT: RRR. ABSENT: diastolic murmur, rubs, systolic murmur Vascular exam: PRESENT: normal capillary refill Extremities exam: PRESENT: full ROM. ABSENT: calf tenderness, clubbing, pedal edema Musculoskeletal exam: PRESENT: ambulatory Neurological exam: PRESENT: alert, awake, oriented to person, oriented to place, CN II-XII grossly intact. ABSENT: motor sensory deficit Psychiatric exam: PRESENT: appropriate affect, normal mood. ABSENT: homicidal ideation, suicidal ideation Skin exam: PRESENT: dry, intact, warm. ABSENT: cyanosis, rash Results Laboratory Results: 11/01/19 13:30 11/03/19 02:22 11/02/19 11/03/19 15:40 02:22 Sodium 118.9 L* 122.3 L Potassium 4.5 4.2 Chloride 82 L 88 L Carbon Dioxide 27 25 Anion Gap 10 9 BUN 16 15 Creatinine 1.10 0.98 Est GFR ( Amer) > 60 > 60 Glucose 98 106 Calcium 9.0 9.5 Magnesium 1.3 L Impressions: Chest X-Ray 11/03/19 00:00 IMPRESSION: NO ACUTE RADIOGRAPHIC FINDING IN THE CHEST. EMPHYSEMA. Assessment and Plan - Diagnosis (1) Hyponatremia Is this a current diagnosis for this admission?: Yes Plan: Worsened; 127.9-> 122.8-> 118.9-> 122.3 Patient is admitted to the medical floor on continuous cardiac telemetry. He is placed on a regular diet; fluid restricted to 1 L daily. Mental health consultation has been obtained; psychiatric medications adjusted per their recommendations. I have asked nursing to to restrict the patient's access to water in his room; remove his cup and water jug. Document any water observed obtained from the sink. Strict I&Os Follow up chemistry. (2) Schizophrenia Is this a current diagnosis for this admission?: Yes Plan: Mental Health consultation for medication review in setting of Hyponatremia. Mild-moderate chronic hyponatremia w/o symptoms may be preferable to uncontrolled schizophrenic/personality disorder symptoms. Medications adjusted per their recommendations. Have asked discharge planning with assistance in determining if patient has self-capacity or has been previously placed in the custody of family/state. (3) Hypertension Is this a current diagnosis for this admission?: Yes Plan: Continues to be hypertensive. Continue amlodipine. Resume home dose diltiazem, hydralazine, and lisinopril IV hydralazine as needed for BP control. (4) BPH (benign prostatic hyperplasia) Qualifiers: Lower urinary tract symptom presence: symptoms absent Qualified Code(s): N40.0 - Benign prostatic hyperplasia without lower urinary tract symptoms Is this a current diagnosis for this admission?: Yes Plan: Continue home dose proscar. (5) Emphysema lung Qualifiers: Emphysema type: unspecified Qualified Code(s): J43.9 - Emphysema, un specified Is this a current diagnosis for this admission?: Yes Plan: Emphysema with acute exacerbation. Patient complains of shortness of breath; found to have wheezing and rhonchi on exam. Chest x-ray shows emphysema; no acute process. As needed nebulizer treatments. Continue home dose Breo. Robitussin as needed. Avoid steroid therapy if possible r/t multiple psychiatric medication changed made yesterday. - Time Time Spent with patient: 35 or more minutes Medications reviewed and adjusted accordingly: Yes Anticipated discharge: Home Within: Other
[2019-11-03] MEDS: AMLODIPINE BESYLATE 5 MG TABLET PO SCH (21:47)
[2019-11-04] MEDS: IPRATROPIUM/ALBUTEROL 0.5-2.5 MG/3 ML AMPUL NEB SCH ×4 (02:41→19:35)
[2019-11-04] MEDS: HEPARIN SOD (PORCINE) 5,000 UNIT/ML 1 ML VIAL SUBCUT SCH ×3 (05:27→21:06)
[2019-11-04] MEDS: LISINOPRIL 10 MG TABLET PO SCH (05:34)
[2019-11-04] MEDS: FINASTERIDE 5 MG TABLET PO SCH (05:34)
[2019-11-04] MEDS: GABAPENTIN 300 MG CAPSULE PO SCH ×2 (05:35→17:58)
[2019-11-04] MEDS: DILTIAZEM HCL 180 MG CAPSULE.CR PO SCH (05:35)
[2019-11-04] MEDS: DIVALPROEX SODIUM 250 MG TABLET.DR PO SCH ×2 (05:35→17:58)
[2019-11-04] MEDS: PANTOPRAZOLE SODIUM 40 MG TABLET.DR PO SCH (05:36)
[2019-11-04] MEDS: HYDRALAZINE HCL 10 MG TABLET PO SCH ×3 (05:36→18:02)
[2019-11-04 06:59] LABS: ANION GAP 11 (5-19); BLOOD UREA NITROGEN 13 mg/dL (7-20); CALCIUM 9.1 mg/dL (8.4-10.2); CARBON DIOXIDE 25 mmol/L (22-30); CHLORIDE 86 mmol/L (98-107); GLUCOSE 98 mg/dL (75-110); POTASSIUM 4.3 mmol/L (3.6-5.0)
[2019-11-04] MEDS: DOCUSATE SODIUM 100 MG CAPSULE PO SCH (10:05)
[2019-11-04] MEDS: FLUTICASONE/VILANTEROL 200-25 MCG/DOSE IH SCH (10:05)
[2019-11-04] MEDS: HALOPERIDOL 5 MG TABLET PO SCH ×2 (10:05→21:05)
[2019-11-04] MEDS: BENZTROPINE MESYLATE 1 MG TABLET PO SCH (10:05)
[2019-11-04] MEDS: AMLODIPINE BESYLATE 5 MG TABLET PO SCH ×2 (10:05→21:05)
[2019-11-04] MEDS: SODIUM CHLORIDE 1 GM TABLET PO SCH (10:54)
[2019-11-04 12:31] LABS: URIC ACID 4.3 mg/dL (3.5-8.5)
[2019-11-04] MEDS: DIVALPROEX SODIUM 125 MG CAP.SPRINK PO SCH (12:51)
[2019-11-04 13:57] LABS: URINE SODIUM 17 mmol/L (30-90)
[2019-11-04 14:08] LABS: OSMOLALITY,URINE 97 mOsm/kg (300-900)
--- NOTE | 2019-11-04 15:12 | PDOC CONSULTATION ---
Consultation Consult Date: 11/04/19 Provider Consulted: SHARLENE IRIZARRY Consult reason:: Hyponatremia History of Present Illness Admission Date/PCP: 11/03/19 14:02 JANAK FUNG MD History of Present Illness: HU GARCIA is a 59 year old male with history of schizophrenia, narcissistic personality disorder, asthma/COPD, and BPH who was admitted on October 31 due to abnormal sodium of 127.9. Patient has been on antipsychotic medications including Depakote, Seroquel, clonazepam, benztropine, haloperidol and Remeron. Since admission this medications has been significantly adjusted. Apparently the patient has been refusing placement of IV access and has not had any IV fluids since admission. He is on fluid restriction initially at 1.5 L a day and then decrease to 1 L a day. He was also started on salt tablets initially given 2 g for a day followed by 1 g daily. Since admission the patient's sodium went from 127.9>122.8>118.9>122.3 and currently 121.7. His total protein is normal at 3.8 and cholesterol is normal at 113.85. His serum osmolality is 267. TSH is normal at 0.72. Initial urine osmolality was 134 with urine sodium of 25. Today I repeated his urine osmolality and it was 97, urine sodium of 17, cortisol of 12.5 and uric acid of 4.3. According to his nurse the patient has been drinking water wherever he can get it yesterday. Today the patient is not even being given a cup so that he does not have to drink water even from the faucet. I started the patient he really could not give me any significant information. He is a poor historian and does not want to answer so many questions. He said he drinks soda at home and does not tell me that he is drinking a lot of water. He said he feels fine and has good appetite. He denies any memory impairment recently including confusion. He denies feeling weak or tired. He denies feeling imbalance when he gets up and walk. He denies any chest pains, shortness of breath or edema. He denies any known problem with hyponatremia in the past. Past Medical History Pulmonary Medical History: Reports: Asthma, Chronic Obstructive Pulmonary Disease (COPD) Renal/ Medical History: Reports: Benign Prostatic Hyperplasia GI Medical History: Reports: Gastroesophageal Reflux Disease Musculoskeltal Medical History: Reports: Arthritis Psychiatric Medical History: Reports: Schizoaffective Disorder Past Surgical History Past Surgical History: Reports: None Social History Information Source: [facility] Records Lives with: [facility] Smoking Status: Former Smoker Electronic Cigarette use?: No Frequency of Alcohol Use: None Hx Recreational Drug Use: No Drugs: None Hx Prescription Drug Abuse: No - Advance Directive Resuscitation Status: Full Code Family History Family History: Unable to be obtained since patient does not want to answer so much questions and not sure if he does know his family history. Parental Family History Reviewed: No Children Family History Reviewed: No Sibling(s) Family History Reviewed.: No Medication/Allergy Home Medications: Acetaminophen [Tylenol Extra Strength 500 mg Tablet] 1,000 mg PO BID@0600,1800 07/13/16 Alfuzosin HCl [Alfuzosin HCl ER] 10 mg PO QPM 07/13/16 Benztropine Mesylate [Cogentin 1 mg Tablet] 1 mg PO BID@0600,1800 07/13/16 Clonazepam [Klonopin 1 mg Tablet] 0.5 mg PO Q6HP PRN 07/13/16 Clonazepam [Klonopin] 0.5 mg PO TID@0600,1200,1800 07/13/16 Finasteride [Proscar 5 mg Tablet] 5 mg PO Q6AM 07/13/16 Gabapentin [Neurontin 300 mg Capsule] 600 mg PO BID@0600,1800 07/13/16 Haloperidol 30 mg PO Q6AM 07/13/16 Mirtazapine [Remeron 15 mg Tablet] 7.5 mg PO 1800 07/13/16 Omeprazole 40 mg PO Q6AM 07/13/16 Acetaminophen [Tylenol] 650 mg PO Q4HP PRN 11/01/19 Budesonide/Formoterol Fumarate [Symbicort HFA 160-4.5 mcg Inhaler 6 gm] 2 puff IH BID@0600,1800 11/01/19 Calcium Carbonate [Tums Chewable 500 mg Tab.chew] 1,000 mg PO ASDIR PRN 11/01/19 Diltiazem HCl [Diltiazem 24Hr ER] 180 mg PO Q6AM 11/01/19 Divalproex Sodium [Depakote Sprinkle 125 mg Capsule] 125 mg PO NOON 11/01/19 Divalproex Sodium [Depakote] 250 mg PO BID@0600,1800 11/01/19 Guaifenesin/D-Methorphan Hb [Robitussin-Dm Syrup 10 ml Udcup] 10 ml PO Q4HP PRN 11/01/19 Hydralazine HCl [Apresoline 10 mg Tablet] 10 mg PO Q8@0600,1200,1800 11/01/19 Lisinopril 20 mg PO Q6AM 11/01/19 Quetiapine Fumarate [Seroquel 25 mg Tablet] 25 mg PO BID@0600,1800 11/01/19 Allergies/Adverse Reactions: No Known Allergies Allergy (Verified 08/08/18 22:28) Review of Systems All systems: reviewed and no additional remarkable complaints except as stated Review of Systems: Constitutional: ABSENT: chills, fatigue, fever(s), headache(s), weight gain, weight loss Eyes: ABSENT: visual disturbances Ears: ABSENT: hearing changes Cardiovascular: ABSENT: chest pain, dyspnea on exertion, edema, orthropnea, palpitations Respiratory: ABSENT: cough, dyspnea, hemoptysis Gastrointestinal: ABSENT: abdominal pain, constipation, diarrhea, hematemesis, hematochezia, nausea, vomiting Genitourinary: ABSENT: dysuria, hematuria Musculoskeletal: ABSENT: joint swelling Integumentary: ABSENT: rash, wounds Neurological: ABSENT: abnormal gait, abnormal speech, confusion, dizziness, focal weakness, numbness, syncope Psychiatric: ABSENT: anxiety, depression Endocrine: ABSENT: cold intolerance, heat intolerance, polydipsia, polyuria Hematologic/Lymphatic: ABSENT: easy bleeding, easy bruising, lymphadenopathy Physical Exam Vital Signs: Temp Pulse Resp BP Pulse Ox 98.9 F 83 14 124/89 H 97 11/04/19 05:23 11/04/19 08:18 11/04/19 08:18 11/04/19 05:23 11/04/19 08:18 Intake & Output 11/03/19 11/04/19 11/05/19 06:59 06:59 06:59 Intake Total 1348 1530 Balance 1348 1530 Weight 86.9 kg 87.6 kg Exam: General appearance: No acute distress, not very cooperative, well-developed, well-nourished Head exam: PRESENT: atraumatic, normocephalic Eye exam: PRESENT: Conjunctiva [place], EOMI, PERRLA. ABSENT: conjunctival injection, scleral icterus Mouth exam: PRESENT: moist, neck supple, tongue midline Neck exam: PRESENT: full ROM. ABSENT: carotid bruit, JVD, lymphadenopathy, thyromegaly Respiratory exam: PRESENT: clear to auscultation bilaterally. ABSENT: rales, rhonchi, stridor, wheezes Cardiovascular exam: PRESENT: RRR, +S1, +S2. ABSENT: systolic murmur Pulses: PRESENT: normal radial pulses, normal dorsalis pedis pulses GI/Abdominal exam: PRESENT: normal bowel sounds, soft. ABSENT: guarding, mass, tenderness Rectal exam: Deferred Extremities exam: PRESENT: full ROM. ABSENT: calf tenderness, pedal edema Musculoskeletal: PRESENT: full ROM. ABSENT: deformity Neurological exam: PRESENT: alert, Awake, Oriented to person, Oriented to place, Oriented to time, reflexes normal, CN II-XII grossly intact. ABSENT: motor sensory deficit Psychiatric exam: PRESENT: appropriate affect, normal mood. However refuses a lot of things including IV access ABSENT: homicidal ideation, suicidal ideation Skin exam: PRESENT: intact, dry, warm. ABSENT: rash Results Laboratory Results: 11/01/19 13:30 11/04/19 05:41 11/04/19 05:41 Sodium 121.7 L Potassium 4.3 Chloride 86 L Carbon Dioxide 25 Anion Gap 11 BUN 13 Creatinine 0.95 Est GFR ( Amer) > 60 Glucose 98 Calcium 9.1 Impressions: Chest X-Ray 11/03/19 00:00 IMPRESSION: NO ACUTE RADIOGRAPHIC FINDING IN THE CHEST. EMPHYSEMA. 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 He does appear to be clinically euvolemic. This might actually be chronic. Last normal sodium was noted in 2017. Patient has low urine osmolality disproportionate to serum osmolality. He has normal cortisol, thyroid function, protein and cholesterol. Needs water restriction specifically hypotonic fluids including water. I will decrease his water restriction to just 750 mL a day. Discontinue IV fluids. Agree with adjusting his psych medications. To start with, to produce aquaresis I will give the patient just a dose of tolvaptan. Continue to monitor sodium level. (2) Hypertension Is this a current diagnosis for this admission?: Yes Plan: Currently controlled. (3) Schizophrenia Is this a current diagnosis for this admission?: Yes Plan: Defer to hospitalist. - Notes Notes: Discussed with DERRICK Chan. Thank you very much for this consultation. - Time Time Spent: 50 to 70 Minutes
[2019-11-04] MEDS ORDERED: TOLVAPTAN 15 MG TABLET PO ONE (15:30)
[2019-11-04] MEDS ORDERED: TOLVAPTAN 15 MG TABLET PO PRN (16:21)
--- NOTE | 2019-11-04 16:56 | PDOC PROGRESS REPORT ---
Subjective Progress Note for:: 11/04/19 Subjective:: HU GARCIA is a 59 year old male with a past medical history significant for Schizophrenia, narcissistic personality disorder, BPH, GERD who was admitted 11/01/2019 for hyponatremia. Patient was seen on morning rounds. He is found ambulating in his room. He is alert and oriented to self, place, situation. He is conversational and socially appropriate. He states he is feeling well and denies all symptoms. He denies headaches, dizziness, fatigue, chest pain, palpitations, dyspnea, orthopnea, cough, abdominal pain, nausea and vomiting. He has no questions or concerns at this time. Per nursing, patient was found to be taking old/dirty drinking cups from food trays found in the hallway. He was also found to be saving medicine cups in order to be able to drink water from the sink. Reason For Visit: HYPONATREMIA Physical Exam Vital Signs: Temp Pulse Resp BP Pulse Ox 98.9 F 83 14 124/89 H 97 11/04/19 05:23 11/04/19 08:18 11/04/19 08:18 11/04/19 05:23 11/04/19 08:18 Intake & Output 11/03/19 11/04/19 11/05/19 06:59 06:59 06:59 Intake Total 1348 1530 Balance 1348 1530 Weight 86.9 kg 87.6 kg General appearance: PRESENT: no acute distress, well-developed, well-nourished - Overweight Head exam: PRESENT: atraumatic, normocephalic Eye exam: PRESENT: conjunctiva pink, EOMI, PERRLA. ABSENT: scleral icterus Mouth exam: PRESENT: moist, tongue midline Respiratory exam: PRESENT: clear to auscultation alan. ABSENT: rales, rhonchi, wheezes Cardiovascular exam: PRESENT: RRR. ABSENT: diastolic murmur, rubs, systolic murmur Vascular exam: PRESENT: normal capillary refill Extremities exam: PRESENT: full ROM. ABSENT: calf tenderness, clubbing, pedal edema Neurological exam: PRESENT: alert, awake, oriented to person, oriented to place, CN II-XII grossly intact, other - At baseline mentation. ABSENT: motor sensory deficit Psychiatric exam: PRESENT: flat affect, normal mood. ABSENT: homicidal ideation, suicidal ideation Skin exam: PRESENT: dry, intact, warm. ABSENT: cyanosis, rash Results Laboratory Results: 11/01/19 13:30 11/04/19 05:41 11/04/19 11/04/19 11/04/19 05:41 05:41 12:45 Sodium 121.7 L Potassium 4.3 Chloride 86 L Carbon Dioxide 25 Anion Gap 11 BUN 13 Creatinine 0.95 Est GFR ( Amer) > 60 Glucose 98 Uric Acid 4.3 Calcium 9.1 Urine Osmolality 97 L Impressions: Chest X-Ray 11/03/19 00:00 IMPRESSION: NO ACUTE RADIOGRAPHIC FINDING IN THE CHEST. EMPHYSEMA. Assessment and Plan - Diagnosis (1) Hyponatremia Is this a current diagnosis for this admission?: Yes Plan: Essentially unchanged; 127.9-> 122.8-> 118.9-> 122.3-> 121.7 Likely secondary to primary polydipsia. Possibly chronic hyponatremia. Patient is admitted to the medical floor on continuous cardiac telemetry. He is placed on a regular diet; fluid restricted to 750 ml daily. Mental health consultation has been obtained; psychiatric medications adjusted per their recommendations. I have asked nursing to to restrict the patient's access to water in his room; remove his cup and water jug. Document any water observed obtained from the sink. Nephrology is consulted; appreciate Dr. Nunes's assistance. Per Dr. Nunes, will receive 1 dose tolvaptan Strict I&Os Follow up chemistry. (2) Schizophrenia Is this a current diagnosis for this admission?: Yes Plan: Mental Health consultation for medication review in setting of Hyponatremia. Mild-moderate chronic hyponatremia w/o symptoms may be preferable to uncont rolled schizophrenic/personality disorder symptoms. Medications adjusted per their recommendations. Have asked discharge planning with assistance in determining if patient has self-capacity or has been previously placed in the custody of family/state. (3) Hypertension Is this a current diagnosis for this admission?: Yes Plan: Continues to be hypertensive. Continue amlodipine. Resume home dose diltiazem, hydralazine, and lisinopril IV hydralazine as needed for BP control. (4) BPH (benign prostatic hyperplasia) Qualifiers: Lower urinary tract symptom presence: symptoms absent Qualified Code(s): N40.0 - Benign prostatic hyperplasia without lower urinary tract symptoms Is this a current diagnosis for this admission?: Yes Plan: Continue home dose proscar. (5) Emphysema lung Qualifiers: Emphysema type: unspecified Qualified Code(s): J43.9 - Emphysema, unspecified Is this a current diagnosis for this admission?: Yes Plan: Emphysema with acute exacerbation. Chest x-ray shows emphysema; no acute process. As needed nebulizer treatments. Continue home dose Breo. Robitussin as needed. Avoid steroid therapy if possible r/t multiple psychiatric medication changed made yesterday. (6) Primary polydipsia Is this a current diagnosis for this admission?: Yes Plan: Management as above. - Time Time Spent with patient: 35 or more minutes Medications reviewed and adjusted accordingly: Yes Anticipated discharge: Home Within: Other
[2019-11-04 21:27] LABS: ANION GAP 10 (5-19); BLOOD UREA NITROGEN 21 mg/dL (7-20); CALCIUM 9.2 mg/dL (8.4-10.2); CARBON DIOXIDE 26 mmol/L (22-30); CHLORIDE 87 mmol/L (98-107); GLUCOSE 97 mg/dL (75-110); POTASSIUM 4.6 mmol/L (3.6-5.0)
[2019-11-05] MEDS: IPRATROPIUM/ALBUTEROL 0.5-2.5 MG/3 ML AMPUL NEB SCH ×4 (02:17→20:33)
[2019-11-05] MEDS: HEPARIN SOD (PORCINE) 5,000 UNIT/ML 1 ML VIAL SUBCUT SCH ×3 (05:28→21:11)
[2019-11-05] MEDS: FINASTERIDE 5 MG TABLET PO SCH (05:30)
[2019-11-05] MEDS: LISINOPRIL 10 MG TABLET PO SCH (05:30)
[2019-11-05] MEDS: GABAPENTIN 300 MG CAPSULE PO SCH ×2 (05:31→18:41)
[2019-11-05] MEDS: DILTIAZEM HCL 180 MG CAPSULE.CR PO SCH (05:31)
[2019-11-05] MEDS: PANTOPRAZOLE SODIUM 40 MG TABLET.DR PO SCH (05:31)
[2019-11-05] MEDS: HYDRALAZINE HCL 10 MG TABLET PO SCH ×3 (05:31→18:41)
[2019-11-05] MEDS: DIVALPROEX SODIUM 250 MG TABLET.DR PO SCH ×2 (05:32→18:41)
[2019-11-05] MEDS: AMLODIPINE BESYLATE 5 MG TABLET PO SCH ×2 (09:13→21:14)
[2019-11-05] MEDS: FLUTICASONE/VILANTEROL 200-25 MCG/DOSE IH SCH (09:13)
[2019-11-05] MEDS: DOCUSATE SODIUM 100 MG CAPSULE PO SCH (09:15)
[2019-11-05] MEDS: BENZTROPINE MESYLATE 1 MG TABLET PO SCH (09:15)
[2019-11-05] MEDS: SODIUM CHLORIDE 1 GM TABLET PO SCH (09:16)
[2019-11-05] MEDS: HALOPERIDOL 5 MG TABLET PO SCH ×2 (09:16→21:14)
[2019-11-05 10:29] LABS: ANION GAP 11 (5-19); BLOOD UREA NITROGEN 20 mg/dL (7-20); CALCIUM 9.5 mg/dL (8.4-10.2); CARBON DIOXIDE 22 mmol/L (22-30); CHLORIDE 98 mmol/L (98-107); GLUCOSE 107 mg/dL (75-110); POTASSIUM 4.8 mmol/L (3.6-5.0)
--- NOTE | 2019-11-05 11:53 | PDOC PROGRESS REPORT ---
Subjective Progress Note for:: 11/05/19 Subjective:: Patient remains to be clinically unchanged, he still refusing IV access and refusing blood draws. He finally did allow some blood drawn this morning though which is a good thing. He is a still being caught walking in the hallway getting used glasses or cups to get water from the faucet. He received a dose of tolvaptan yesterday and I restricted his water intake at 750 mL. He does not otherwise offer any complaints. Reason For Visit: HYPONATREMIA Physical Exam Vital Signs: Temp Pulse Resp BP Pulse Ox 98.7 F 72 16 100/60 97 11/04/19 23:27 11/05/19 02:18 11/05/19 02:18 11/05/19 08:00 11/05/19 02:18 Intake & Output 11/04/19 11/05/19 11/06/19 06:59 06:59 06:59 Intake Total 1530 820 Output Total 400 Balance 1530 420 Weight 87.6 kg 87.6 kg Exam: General appearance: PRESENT: no acute distress, not very cooperative, well- developed, well-nourished Head exam: PRESENT: atraumatic, normocephalic Eye exam: PRESENT: conjunctiva pink, PERRLA. ABSENT: scleral icterus Neck exam: ABSENT: JVD Respiratory exam: PRESENT: Normal breath sounds. ABSENT: crackles, rales, rhonchi, unlabored, wheezes Cardiovascular exam: PRESENT: Regular rate rhythm -+S1, +S2. ABSENT: diastolic murmur, systolic murmur GI/Abdominal exam: PRESENT: normal bowel sounds, soft. ABSENT: guarding, mass, tenderness Extremities exam: ABSENT: No edema Neurological exam: PRESENT: alert, awake, oriented to person, place and time. Skin exam: PRESENT: dry, warm, Results Laboratory Results: 11/01/19 13:30 11/04/19 11/04/19 11/04/19 05:41 12:45 20:43 Sodium 123.2 L Potassium 4.6 Chloride 87 L Carbon Dioxide 26 Anion Gap 10 BUN 21 H Creatinine 1.41 H Est GFR ( Amer) > 60 Glucose 97 Uric Acid 4.3 Calcium 9.2 Urine Osmolality 97 L Impressions: Chest X-Ray 11/03/19 00:00 IMPRESSION: NO ACUTE RADIOGRAPHIC FINDING IN THE CHEST. EMPHYSEMA. Assessment & Plan - Diagnosis (1) Hyponatremia Is this a current diagnosis for this admission?: Yes Plan: Secondary to psychogenic polydipsia with antipsychotic medications as well. Now improved to 130.7 from 123.2 yesterday. Patient has received a dose of tolvaptan 15 mg with fluid restriction of 750 mL yesterday. I am going to incr ease his fluid restriction to 1200 mL a day in view of worsening kidney function. (2) Acute kidney injury Is this a current diagnosis for this admission?: Yes Plan: Most likely secondary to developing volume depletion secondary to fluid restriction imposed due to hyponatremia. I will increase the patient's fluid restriction to 1200 mL a day. If the patient would agree we can even give a little bit of normal saline but patient has been refusing IV access placement. (3) Hypertension Is this a current diagnosis for this admission?: Yes Plan: Controlled. (4) Schizophrenia Is this a current diagnosis for this admission?: Yes Plan: Hospitalist managing. - Time Time with patient: 15-25 minutes
--- NOTE | 2019-11-05 13:58 | PDOC PROGRESS REPORT ---
Subjective Progress Note for:: 11/05/19 Subjective:: HU GARCIA is a 59 year old male with a past medical history significant for Schizophrenia, narcissistic personality disorder, BPH, GERD who was admitted 11/01/2019 for hyponatremia. Patient was seen on morning rounds. He is found sitting in a chair at the doorway to his room. He is alert and oriented to self, place, situation. He is conversational and socially appropriate. He states he is feeling well. Agreeable to having his labs drawn at the moment. He denies headaches, dizziness, fatigue, chest pain, palpitations, dyspnea, orthopnea, cough, abdominal pain, nausea and vomiting. He has no questions or concerns at this time. No concerns per nursing. Reason For Visit: HYPONATREMIA Physical Exam Vital Signs: Temp Pulse Resp BP Pulse Ox 98.7 F 102 H 16 100/60 95 11/04/19 23:27 11/05/19 08:27 11/05/19 08:27 11/05/19 08:00 11/05/19 08:27 Intake & Output 11/04/19 11/05/19 11/06/19 06:59 06:59 06:59 Intake Total 1530 820 Output Total 400 Balance 1530 420 Weight 87.6 kg 87.6 kg General appearance: PRESENT: no acute distress, cooperative, well-developed, well-nourished Head exam: PRESENT: atraumatic, normocephalic Eye exam: PRESENT: conjunctiva pink, EOMI, PERRLA. ABSENT: scleral icterus Ear exam: PRESENT: normal external ear exam Mouth exam: PRESENT: moist, tongue midline Respiratory exam: PRESENT: clear to auscultation alan, symmetrical, unlabored. ABSENT: rales, rhonchi, wheezes Cardiovascular exam: PRESENT: RRR. ABSENT: diastolic murmur, rubs, systolic murmur Vascular exam: PRESENT: normal capillary refill Extremities exam: PRESENT: full ROM. ABSENT: calf tenderness, clubbing, pedal edema Musculoskeletal exam: PRESENT: ambulatory Neurological exam: PRESENT: alert, awake, oriented to person, oriented to place, oriented to situation, CN II-XII grossly intact, other - baseline mentation. ABSENT: motor sensory deficit Psychiatric exam: PRESENT: flat affect, normal mood. ABSENT: homicidal i deation, suicidal ideation Skin exam: PRESENT: dry, intact, warm. ABSENT: cyanosis, rash Results Laboratory Results: 11/01/19 13:30 11/05/19 09:36 11/04/19 11/04/19 11/05/19 12:45 20:43 09:36 Sodium 123.2 L 130.7 L Potassium 4.6 4.8 Chloride 87 L 98 Carbon Dioxide 26 22 Anion Gap 10 11 BUN 21 H 20 Creatinine 1.41 H 1.54 H Est GFR ( Amer) > 60 56 L Glucose 97 107 Calcium 9.2 9.5 Magnesium 2.0 Urine Osmolality 97 L Impressions: Chest X-Ray 11/03/19 00:00 IMPRESSION: NO ACUTE RADIOGRAPHIC FINDING IN THE CHEST. EMPHYSEMA. Assessment and Plan - Diagnosis (1) Hyponatremia Is this a current diagnosis for this admission?: Yes Plan: Essentially unchanged; 127.9-> 122.8-> 118.9-> 122.3-> 121.7-> 130 Likely secondary to primary polydipsia. Possibly chronic hyponatremia. Patient is admitted to the medical floor on continuous cardiac telemetry. He is placed on a regular diet; fluid restricted to 1200 ml daily. Mental health consultation has been obtained; psychiatric medications adjusted per their recommendations. I have asked nursing to to restrict the patient's access to water in his room; remove his cup and water jug. Document any water observed obtained from the sink. Nephrology is consulted; appreciate Dr. Nunes's assistance. Receive tolvaptan x1 Strict I&Os Follow up chemistry. (2) Schizophrenia Is this a current diagnosis for this admission?: Yes Plan: Mental Health consultation for medication review in setting of Hyponatremia. Mild-moderate chronic hyponatremia w/o symptoms may be preferable to uncon trolled schizophrenic/personality disorder symptoms. Medications adjusted per their recommendations. Have asked discharge planning with assistance in determining if patient has self-capacity or has been previously placed in the custody of family/state. (3) Hypertension Is this a current diagnosis for this admission?: Yes Plan: Continues to be hypertensive. Continue amlodipine. Resume home dose diltiazem, hydralazine, and lisinopril IV hydralazine as needed for BP control. (4) BPH (benign prostatic hyperplasia) Qualifiers: Lower urinary tract symptom presence: symptoms absent Qualified Code(s): N40.0 - Benign prostatic hyperplasia without lower urinary tract symptoms Is this a current diagnosis for this admission?: Yes Plan: Continue home dose proscar. (5) Emphysema lung Qualifiers: Emphysema type: unspecified Qualified Code(s): J43.9 - Emphysema, unspecified Is this a current diagnosis for this admission?: Yes Plan: Emphysema with acute exacerbation. Chest x-ray shows emphysema; no acute process. As needed nebulizer treatments. Continue home dose Breo. Robitussin as needed. Avoid steroid therapy if possible r/t multiple psychiatric medication changed made yesterday. (6) Primary polydipsia Is this a current diagnosis for this admission?: Yes Plan: Management as above. (7) Acute kidney injury Is this a current diagnosis for this admission?: Yes Plan: R/t fluid restrictions Nephrology consulted Increase p.o. fluids to 1200 ml daily PT continues to decline IVF - Time Time Spent with patient: 25-34 minutes Medications reviewed and adjusted accordingly: Yes Anticipated discharge: Home Within: Other
[2019-11-05] MEDS: DIVALPROEX SODIUM 125 MG CAP.SPRINK PO SCH (14:18)
[2019-11-06] MEDS: IPRATROPIUM/ALBUTEROL 0.5-2.5 MG/3 ML AMPUL NEB SCH ×4 (02:12→20:00)
[2019-11-06] MEDS: HEPARIN SOD (PORCINE) 5,000 UNIT/ML 1 ML VIAL SUBCUT SCH ×3 (05:27→21:01)
[2019-11-06] MEDS: FINASTERIDE 5 MG TABLET PO SCH (05:30)
[2019-11-06] MEDS: DIVALPROEX SODIUM 250 MG TABLET.DR PO SCH ×2 (05:30→17:24)
[2019-11-06] MEDS: GABAPENTIN 300 MG CAPSULE PO SCH ×2 (05:30→17:23)
[2019-11-06] MEDS: PANTOPRAZOLE SODIUM 40 MG TABLET.DR PO SCH (05:31)
[2019-11-06] MEDS: HYDRALAZINE HCL 10 MG TABLET PO SCH ×3 (05:32→17:23)
[2019-11-06] MEDS: LISINOPRIL 10 MG TABLET PO SCH (05:32)
[2019-11-06] MEDS: DILTIAZEM HCL 180 MG CAPSULE.CR PO SCH (05:32)
[2019-11-06 10:49] LABS: ANION GAP 9 (5-19); BLOOD UREA NITROGEN 23 mg/dL (7-20); CALCIUM 9.3 mg/dL (8.4-10.2); CARBON DIOXIDE 25 mmol/L (22-30); CHLORIDE 97 mmol/L (98-107); GLUCOSE 147 mg/dL (75-110); POTASSIUM 4.9 mmol/L (3.6-5.0)
[2019-11-06] MEDS: BENZTROPINE MESYLATE 1 MG TABLET PO SCH (11:11)
[2019-11-06] MEDS: HALOPERIDOL 5 MG TABLET PO SCH ×2 (11:11→21:04)
[2019-11-06] MEDS: FLUTICASONE/VILANTEROL 200-25 MCG/DOSE IH SCH (11:12)
[2019-11-06] MEDS: AMLODIPINE BESYLATE 5 MG TABLET PO SCH ×2 (11:12→21:04)
[2019-11-06] MEDS: DOCUSATE SODIUM 100 MG CAPSULE PO SCH (11:12)
[2019-11-06] MEDS: SODIUM CHLORIDE 1 GM TABLET PO SCH (11:15)
[2019-11-06] MEDS: DIVALPROEX SODIUM 125 MG CAP.SPRINK PO SCH (13:54)
--- NOTE | 2019-11-06 19:24 | PDOC PROGRESS REPORT ---
Subjective Progress Note for:: 11/06/19 Subjective:: Patient declined to answer questions. Reason For Visit: HYPONATREMIA Physical Exam Vital Signs: Temp Pulse Resp BP Pulse Ox 97.8 F 78 19 98/71 L 100 11/06/19 12:42 11/06/19 12:42 11/06/19 12:42 11/06/19 12:42 11/06/19 12:42 Intake & Output 11/05/19 11/06/19 11/07/19 06:59 06:59 06:59 Intake Total 820 1000 520 Output Total 400 Balance 420 1000 520 Weight 87.6 kg 87.6 kg General appearance: PRESENT: no acute distress, disheveled, well-developed, well-nourished. ABSENT: cooperative Head exam: PRESENT: atraumatic, normocephalic Eye exam: PRESENT: conjunctiva pink. ABSENT: scleral icterus Mouth exam: PRESENT: moist, tongue midline Neck exam: ABSENT: JVD Respiratory exam: PRESENT: clear to auscultation alan, decreased breath sounds - Air entry diminished at bases bilaterally, symmetrical, unlabored. ABSENT: accessory muscle use Cardiovascular exam: PRESENT: RRR, +S1, +S2 Vascular exam: PRESENT: normal capillary refill GI/Abdominal exam: PRESENT: normal bowel sounds, soft. ABSENT: distended, t enderness Rectal exam: PRESENT: deferred Extremities exam: ABSENT: clubbing, pedal edema Neurological exam: PRESENT: alert, other - Declines answering questions Psychiatric exam: ABSENT: agitated, anxious Skin exam: PRESENT: dry, warm Results Laboratory Results: 11/01/19 13:30 11/06/19 10:22 11/06/19 10:22 Sodium 130.6 L Potassium 4.9 Chloride 97 L Carbon Dioxide 25 Anion Gap 9 BUN 23 H Creatinine 1.45 H Est GFR ( Amer) > 60 Glucose 147 H Calcium 9.3 Impressions: Chest X-Ray 11/03/19 00:00 IMPRESSION: NO ACUTE RADIOGRAPHIC FINDING IN THE CHEST. EMPHYSEMA. 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 daily Continue divalproex 250 mg p.o. every 12 hours Continue gabapentin 600 mg p.o. every 12 hours Continue haloperidol 5 mg p.o. every 12 hours Continue clonazepam 0.5 mg p.o. 6 hours PRN (4) Hypertension Is this a current diagnosis for this admission?: Yes Plan: Adequate BP control Continue amlodipine 5 mg p.o. every 12 hours Continue diltiazem CD 180 mg p.o. daily Continue hydralazine 10 mg p.o. every 6 hours Continue lisinopril 20 mg p.o. daily (5) Emphysema lung Qualifiers: Emphysema type: unspecified Qualified Code(s): J43.9 - Emphysema, un specified Is this a current diagnosis for this admission?: Yes Plan: Stable on room air Continue Breo Ellipta daily Continue albuterol/ipratropium nebs every 6 hours CXR 11/03/2019: No acute radiographic findings in the chest. Emphysema. (6) BPH (benign prostatic hyperplasia) Qualifiers: Lower urinary tract symptom presence: symptoms absent Qualified Code(s): N40.0 - Benign prostatic hyperplasia without lower urinary tract symptoms Is this a current diagnosis for this admission?: Yes Plan: Continue finasteride 5 mg p.o. daily (7) Acute kidney injury Is this a current diagnosis for this admission?: Yes Plan: Slight improvement in serum creatinine today Nephrology following patient Patient has in the past and continues to decline IV fluids - Time Time Spent with patient: 25-34 minutes Medications reviewed and adjusted accordingly: Yes Anticipated discharge: Other Within: Other
--- NOTE | 2019-11-06 22:05 | PDOC PROGRESS REPORT ---
Subjective Progress Note for:: 11/06/19 Subjective:: Patient is clinically stable. He initially refused blood work this morning so I had to reorder it again unfortunately agreed the second time. He does not offer verbalize much complaints. Per the intake and output record, he seems to be complying with the ordered fluid restriction. Reason For Visit: HYPONATREMIA Physical Exam Vital Signs: Temp Pulse Resp BP Pulse Ox 98.6 F 71 20 106/65 99 11/06/19 08:02 11/06/19 08:02 11/06/19 08:02 11/06/19 08:02 11/06/19 08:02 Intake & Output 11/05/19 11/06/19 11/07/19 06:59 06:59 06:59 Intake Total 820 1000 400 Output Total 400 Balance 420 1000 400 Weight 87.6 kg 87.6 kg Exam: General appearance: PRESENT: no acute distress, cooperative, well-developed, well-nourished Head exam: PRESENT: atraumatic, normocephalic Eye exam: PRESENT: conjunctiva slightly pale, PERRLA. ABSENT: scleral icterus Neck exam: ABSENT: JVD Respiratory exam: PRESENT: Normal breath sounds. ABSENT: crackles, rales, rhonchi, unlabored, wheezes Cardiovascular exam: PRESENT: Regular rate rhythm -+S1, +S2. ABSENT: diastolic murmur, systolic murmur GI/Abdominal exam: PRESENT: normal bowel sounds, soft. ABSENT: guarding, mass, tenderness Extremities exam: ABSENT: No edema Neurological exam: PRESENT: alert, awake, flat affect. Skin exam: PRESENT: dry, warm,dry skin Results Laboratory Results: 11/01/19 13:30 11/06/19 10:22 11/06/19 10:22 Sodium 130.6 L Potassium 4.9 Chloride 97 L Carbon Dioxide 25 Anion Gap 9 BUN 23 H Creatinine 1.45 H Est GFR ( Amer) > 60 Glucose 147 H Calcium 9.3 Impressions: Chest X-Ray 11/03/19 00:00 IMPRESSION: NO ACUTE RADIOGRAPHIC FINDING IN THE CHEST. EMPHYSEMA. Assessment & Plan - Diagnosis (1) Hyponatremia Is this a current diagnosis for this admission?: Yes Plan: Secondary to psychogenic polydipsia with antipsychotic medications as well. Sodium stable at 130. Patient has received a dose of Tolvaptan 15 mg . Currently with fluid restriction at 1200ml/day. Continue the same. (2) Acute kidney injury Is this a current diagnosis for this admission?: Yes Plan: Most likely secondary to developing volume depletion secondary to fluid restriction imposed due to hyponatremia. Continue fluid restriction to 1200 mL a day. Creatinine slightly better today. continue the same. (3) Hypertension Is this a current diagnosis for this admission?: Yes Plan: Controlled. (4) Schizophrenia Is this a current diagnosis for this admission?: Yes Plan: Hospitalist managing. - Time Time with patient: 15-25 minutes
[2019-11-07] MEDS: IPRATROPIUM/ALBUTEROL 0.5-2.5 MG/3 ML AMPUL NEB SCH ×4 (02:03→21:01)
[2019-11-07] MEDS: HEPARIN SOD (PORCINE) 5,000 UNIT/ML 1 ML VIAL SUBCUT SCH ×3 (05:11→21:40)
[2019-11-07] MEDS: DILTIAZEM HCL 180 MG CAPSULE.CR PO SCH (05:14)
[2019-11-07] MEDS: HYDRALAZINE HCL 10 MG TABLET PO SCH ×3 (05:14→18:56)
[2019-11-07] MEDS: FINASTERIDE 5 MG TABLET PO SCH (05:14)
[2019-11-07] MEDS: PANTOPRAZOLE SODIUM 40 MG TABLET.DR PO SCH (05:14)
[2019-11-07] MEDS: GABAPENTIN 300 MG CAPSULE PO SCH ×2 (05:14→18:56)
[2019-11-07] MEDS: DIVALPROEX SODIUM 250 MG TABLET.DR PO SCH ×2 (05:14→18:56)
[2019-11-07] MEDS: LISINOPRIL 10 MG TABLET PO SCH (05:14)
[2019-11-07] MEDS: AMLODIPINE BESYLATE 5 MG TABLET PO SCH (11:19)
[2019-11-07] MEDS: BENZTROPINE MESYLATE 1 MG TABLET PO SCH (11:20)
[2019-11-07] MEDS: HALOPERIDOL 5 MG TABLET PO SCH ×2 (11:20→21:40)
[2019-11-07] MEDS: DOCUSATE SODIUM 100 MG CAPSULE PO SCH (11:20)
[2019-11-07] MEDS: FLUTICASONE/VILANTEROL 200-25 MCG/DOSE IH SCH (11:22)
[2019-11-07] MEDS: SODIUM CHLORIDE 1 GM TABLET PO SCH (11:22)
[2019-11-07 11:39] LABS: ANION GAP 11 (5-19); BLOOD UREA NITROGEN 27 mg/dL (7-20); CALCIUM 9.6 mg/dL (8.4-10.2); CARBON DIOXIDE 23 mmol/L (22-30); CHLORIDE 94 mmol/L (98-107); GLUCOSE 102 mg/dL (75-110); POTASSIUM 5.3 mmol/L (3.6-5.0)
[2019-11-07] MEDS: DIVALPROEX SODIUM 125 MG CAP.SPRINK PO SCH (11:44)
--- NOTE | 2019-11-07 12:42 | PDOC PROGRESS REPORT ---
Subjective Progress Note for:: 11/07/19 Reason For Visit: HYPONATREMIA Physical Exam Vital Signs: Temp Pulse Resp BP Pulse Ox 97.8 F 70 16 137/66 H 95 11/07/19 00:00 11/07/19 02:03 11/07/19 02:03 11/07/19 00:00 11/07/19 02:03 Intake & Output 11/06/19 11/07/19 11/08/19 06:59 06:59 06:59 Intake Total 1000 1260 Balance 1000 1260 Weight 87.6 kg 85.2 kg General appearance: PRESENT: no acute distress, cooperative, well-developed, well-nourished Head exam: PRESENT: atraumatic, normocephalic Eye exam: PRESENT: conjunctiva pink Mouth exam: PRESENT: moist, tongue midline Neck exam: ABSENT: JVD Respiratory exam: PRESENT: clear to auscultation alan, symmetrical, unlabored. ABSENT: accessory muscle use Cardiovascular exam: PRESENT: RRR, +S1, +S2 GI/Abdominal exam: PRESENT: normal bowel sounds, soft. ABSENT: distended, tenderness Rectal exam: PRESENT: deferred Extremities exam: ABSENT: calf tenderness, pedal edema Musculoskeletal exam: PRESENT: ambulatory Neurological exam: PRESENT: alert, awake, oriented to person, oriented to place, oriented to time, oriented to situation Psychiatric exam: ABSENT: agitated, anxious Skin exam: PRESENT: dry, normal color, warm Results Laboratory Results: 11/01/19 13:30 11/07/19 10:53 11/07/19 10:53 Sodium 127.5 L Potassium 5.3 H Chloride 94 L Carbon Dioxide 23 Anion Gap 11 BUN 27 H Creatinine 1.46 H Est GFR ( Amer) > 60 Glucose 102 Calcium 9.6 Impressions: Chest X-Ray 11/03/19 00:00 IMPRESSION: NO ACUTE RADIOGRAPHIC FINDING IN THE CHEST. EMPHYSEMA. Assessment and Plan - Diagnosis (1) Hyponatremia Is this a current diagnosis for this admission?: Yes Plan: Likely related to polydipsia and excessive free water intake Serum sodium down slightly today Continue 1200 cc fluid restriction with regular diet Psychiatric medications adjusted per recommendations of mental health outbound sales consultant Nephrology input appreciated Patient received 1 dose of tolvaptan Continue strict I/Os Monitor BMP (2) Primary polydipsia Is this a current diagnosis for this admission?: Yes Plan: Patient does not seem to be attempting to sneak excessive fluids See above for hyponatremia treatment (3) Schizophrenia Is this a current diagnosis for this admission?: Yes Plan: Mental Health was consulted and input/assistance appreciated Continue benztropine mesylate 1 mg p.o. daily Continue divalproex 250 mg p.o. every 12 hours Continue gabapentin 600 mg p.o. every 12 hours Continue haloperidol 5 mg p.o. every 12 hours Continue clonazepam 0.5 mg p.o. 6 hours PRN (4) Hypertension Is this a current diagnosis for this admission?: Yes Plan: Adequate BP control Continue amlodipine 5 mg p.o. every 12 hours Continue diltiazem CD 180 mg p.o. daily Continue hydralazine 10 mg p.o. every 6 hours Continue lisinopril 20 mg p.o. daily (5) Emphysema lung Qualifiers: Emphysema type: unspecified Qualified Code(s): J43.9 - Emphysema, unspecified Is this a current diagnosis for this admission?: Yes Plan: Stable on room air Continue Breo Ellipta daily Continue albuterol/ipratropium nebs every 6 hours CXR 11/03/2019: No acute radiographic findings in the chest. Emphysema. (6) BPH (benign prostatic hyperplasia) Qualifiers: Lower urinary tract symptom presence: symptoms absent Qualified Code(s): N40.0 - Benign prostatic hyperplasia without lower urinary tract symptoms Is this a current diagnosis for this admission?: Yes Plan: Continue finasteride 5 mg p.o. daily (7) Acute kidney injury Is this a current diagnosis for this admission?: Yes Plan: Renal function stable over past 24 hours Nephrology following patient Patient has in the past and continues to decline IV fluids - Time Time Spent with patient: 25-34 minutes Anticipated discharge: Other Within: Other
--- NOTE | 2019-11-07 13:45 | PDOC PROGRESS REPORT ---
Subjective Progress Note for:: 11/07/19 Subjective:: Patient remains to be stable. It takes a lot of encouraging for him to allow blood work. From the intake and output record it looks like he is able to maintain the fluid restriction that I have set. He does not verbalize any complaints. Reason For Visit: HYPONATREMIA Physical Exam Vital Signs: Temp Pulse Resp BP Pulse Ox 97.8 F 70 16 137/66 H 95 11/07/19 00:00 11/07/19 02:03 11/07/19 02:03 11/07/19 00:00 11/07/19 02:03 Intake & Output 11/06/19 11/07/19 11/08/19 06:59 06:59 06:59 Intake Total 1000 1260 Balance 1000 1260 Weight 87.6 kg 85.2 kg Exam: General appearance: PRESENT: no acute distress, cooperative, well-developed, well-nourished Head exam: PRESENT: atraumatic, normocephalic Eye exam: PRESENT: conjunctiva pink, PERRLA. ABSENT: scleral icterus Neck exam: ABSENT: JVD Respiratory exam: PRESENT: Normal breath sounds. ABSENT: crackles, rales, rhonchi, unlabored, wheezes Cardiovascular exam: PRESENT: Regular rate rhythm -+S1, +S2. ABSENT: diastolic murmur, systolic murmur GI/Abdominal exam: PRESENT: normal bowel sounds, soft. ABSENT: guarding, mass, tenderness Extremities exam: ABSENT: No edema Neurological exam: PRESENT: alert, awake, oriented to person, place and time. Answers questions appropriately Skin exam: PRESENT: dry, warm, dry skin Results Laboratory Results: 11/01/19 13:30 Impressions: Chest X-Ray 11/03/19 00:00 IMPRESSION: NO ACUTE RADIOGRAPHIC FINDING IN THE CHEST. EMPHYSEMA. Assessment & Plan - Diagnosis (1) Hyponatremia Is this a current diagnosis for this admission?: Yes Plan: Secondary to psychogenic polydipsia with antipsychotic medications as well. Sodium stable now at 127 until 130. Patient has received a dose of Tolvaptan 15 mg . Currently with fluid restriction at 1200ml/day. Continue the same. From nephrology standpoint I think her goal sodium for this patient is anything above 125. Considering his baseline schizophrenia it will be difficult to maintain a sodium level above 130 unless patient can adhere to his 1200 mL fluid restriction after discharge. (2) Acute kidney injury Is this a current diagnosis for this admission?: Yes Plan: Most likely secondary to developing volume depletion secondary to fluid restriction imposed due to hyponatremia. Continue fluid restriction to 1200 mL a day. Kidney function is stable. It is possible that this is actually the patient's baseline kidney function. (3) Hypertension Is this a current diagnosis for this admission?: Yes Plan: Controlled. (4) Hyperkalemia Is this a current diagnosis for this admission?: Yes Plan: Mild and can just be monitored. I will add low potassium diet. (5) Schizophrenia Is this a current diagnosis for this admission?: Yes Plan: Hospitalist managing. - Notes Notes: From nephrology standpoint I think the patient can be sent back to [facility]. - Time Time with patient: 15-25 minutes
[2019-11-07] MEDS ORDERED: AMLODIPINE BESYLATE 5 MG TABLET PO ONE (21:45)
[2019-11-07] MEDS ORDERED: AMLODIPINE BESYLATE 5 MG TABLET PO SCH (22:00)
[2019-11-07] MEDS: CLONAZEPAM 1 MG TABLET PO PRN (23:49)
[2019-11-08] MEDS: HYDROXYZINE PAMOATE 25 MG CAPSULE PO PRN ×2 (02:45→21:43)
[2019-11-08] MEDS: IPRATROPIUM/ALBUTEROL 0.5-2.5 MG/3 ML AMPUL NEB SCH ×4 (05:10→20:38)
[2019-11-08] MEDS: DILTIAZEM HCL 180 MG CAPSULE.CR PO SCH (05:28)
[2019-11-08] MEDS: GABAPENTIN 300 MG CAPSULE PO SCH ×2 (05:29→18:42)
[2019-11-08] MEDS: PANTOPRAZOLE SODIUM 40 MG TABLET.DR PO SCH (05:29)
[2019-11-08] MEDS: LISINOPRIL 10 MG TABLET PO SCH (05:29)
[2019-11-08 05:30] LABS: ANION GAP 12 (5-19); BLOOD UREA NITROGEN 20 mg/dL (7-20); CALCIUM 9.6 mg/dL (8.4-10.2); CARBON DIOXIDE 23 mmol/L (22-30); CHLORIDE 82 mmol/L (98-107); GLUCOSE 101 mg/dL (75-110); POTASSIUM 4.5 mmol/L (3.6-5.0)
[2019-11-08] MEDS: DIVALPROEX SODIUM 250 MG TABLET.DR PO SCH ×2 (05:30→18:42)
[2019-11-08] MEDS: HEPARIN SOD (PORCINE) 5,000 UNIT/ML 1 ML VIAL SUBCUT SCH ×3 (05:30→21:41)
[2019-11-08] MEDS: FINASTERIDE 5 MG TABLET PO SCH (05:30)
[2019-11-08] MEDS: HYDRALAZINE HCL 10 MG TABLET PO SCH ×3 (05:34→18:42)
--- NOTE | 2019-11-08 10:10 | PDOC PROGRESS REPORT ---
Subjective Progress Note for:: 11/08/19 Subjective:: Patient is sound asleep when I entered the room but he is arousable. He does not verbalize any complaints and he appears to be fine. Unfortunately for the past 24 hours his intake was as high as 2730 mL. The aide states that the patient has been drinking from the faucet water yesterday aside from the fluids that he is been given in the tray. His sodium has gone down low again today at 117. Reason For Visit: HYPONATREMIA Physical Exam Vital Signs: Temp Pulse Resp BP Pulse Ox 98.1 F 81 18 118/68 96 11/08/19 07:44 11/08/19 07:44 11/08/19 07:44 11/08/19 07:44 11/08/19 07:44 Intake & Output 11/07/19 11/08/19 11/09/19 06:59 06:59 06:59 Intake Total 1260 2730 380 Balance 1260 2730 380 Weight 85.2 kg 85.2 kg Exam: General appearance: PRESENT: no acute distress, cooperative, well-developed, well-nourished Head exam: PRESENT: atraumatic, normocephalic Eye exam: PRESENT: conjunctiva pink, PERRLA. ABSENT: scleral icterus Neck exam: ABSENT: JVD Respiratory exam: PRESENT: Normal breath sounds. ABSENT: crackles, rales, rhonchi, unlabored, wheezes Cardiovascular exam: PRESENT: Regular rate rhythm -+S1, +S2. ABSENT: diastolic murmur, systolic murmur GI/Abdominal exam: PRESENT: normal bowel sounds, soft. ABSENT: guarding, mass, tenderness Extremities exam: ABSENT: No edema Neurological exam: PRESENT: alert, awake, oriented to person, place and time. Skin exam: PRESENT: dry, warm, Results Laboratory Results: 11/01/19 13:30 11/08/19 04:29 11/07/19 11/08/19 10:53 04:29 Sodium 127.5 L 117.1 L* Potassium 5.3 H 4.5 Chloride 94 L 82 L Carbon Dioxide 23 23 Anion Gap 11 12 BUN 27 H 20 Creatinine 1.46 H 1.07 Est GFR ( Amer) > 60 > 60 Glucose 102 101 Calcium 9.6 9.6 Impressions: Chest X-Ray 11/03/19 00:00 IMPRESSION: NO ACUTE RADIOGRAPHIC FINDING IN THE CHEST. EMPHYSEMA. Assessment & Plan - Diagnosis (1) Hyponatremia Is this a current diagnosis for this admission?: Yes Plan: Secondary to psychogenic polydipsia with antipsychotic medications as well. Patient has received a dose of Tolvaptan 15 mg on 11/03. Currently with fluid res triction at 1200ml/day. From nephrology standpoint I think our goal sodium for this patient is anything above 125. Considering his baseline schizophrenia it will be difficult to maintain a sodium level above 130 unless patient can adhere to his 1200 mL fluid restriction after discharge. Unfortunately the patient exceeded his fluid restriction limit for the last 24 hours and so his sodium went back down to 117.1 today. I talked to the patient's nurse, Libra and mildred to enforce the fluid restriction and the possibly close off faucet in his room so that he can only drink what is in his tray. I will give another dose of tolvaptan 15 mg x 1 dose today and repeat his BMP later today. (2) Acute kidney injury Is this a current diagnosis for this admission?: Yes Plan: Resolved with intake of fluids above fluid restriction limit. Most likely secondary to developing volume depletion secondary to fluid restriction imposed due to hyponatremia. Continue fluid restriction to 1200 mL a day. (3) Hypertension Is this a current diagnosis for this admission?: Yes Plan: Controlled. (4) Hyperkalemia Is this a current diagnosis for this admission?: Yes Plan: Resolved. (5) Schizophrenia Is this a current diagnosis for this admission?: Yes Plan: Hospitalist managing. - Time Time with patient: 15-25 minutes
[2019-11-08] MEDS ORDERED: TOLVAPTAN 15 MG TABLET PO ONE (11:00)
[2019-11-08] MEDS: BENZTROPINE MESYLATE 1 MG TABLET PO SCH (12:20)
[2019-11-08] MEDS: DOCUSATE SODIUM 100 MG CAPSULE PO SCH (12:20)
[2019-11-08] MEDS: SODIUM CHLORIDE 1 GM TABLET PO SCH (12:20)
[2019-11-08] MEDS: HALOPERIDOL 5 MG TABLET PO SCH ×2 (12:20→21:43)
[2019-11-08] MEDS: FLUTICASONE/VILANTEROL 200-25 MCG/DOSE IH SCH (12:21)
[2019-11-08] MEDS: AMLODIPINE BESYLATE 10 MG TABLET PO SCH ×2 (12:22→21:45)
[2019-11-08] MEDS: DIVALPROEX SODIUM 125 MG CAP.SPRINK PO SCH (12:22)
[2019-11-08] MEDS: CLONAZEPAM 1 MG TABLET PO PRN (21:42)
--- NOTE | 2019-11-08 22:27 | PDOC PROGRESS REPORT ---
Subjective Progress Note for:: 11/08/19 Subjective:: Patient ambulatory in the [place]. No complaints Reason For Visit: HYPONATREMIA Physical Exam Vital Signs: Temp Pulse Resp BP Pulse Ox 98.3 F 75 18 93/68 L 97 11/08/19 19:35 11/08/19 19:35 11/08/19 19:35 11/08/19 19:35 11/08/19 19:35 Intake & Output 11/07/19 11/08/19 11/09/19 06:59 06:59 06:59 Intake Total 1260 2730 1221 Balance 1260 2730 1221 Weight 85.2 kg 85.2 kg General appearance: PRESENT: no acute distress, well-developed, well-nourished Head exam: PRESENT: atraumatic, normocephalic Eye exam: PRESENT: conjunctiva pink Mouth exam: PRESENT: moist, tongue midline Neck exam: ABSENT: JVD Respiratory exam: PRESENT: clear to auscultation alan, symmetrical, unlabored. ABSENT: accessory muscle use Cardiovascular exam: PRESENT: RRR, +S1, +S2 GI/Abdominal exam: PRESENT: normal bowel sounds, soft. ABSENT: distended, tenderness Rectal exam: PRESENT: deferred Extremities exam: PRESENT: full ROM. ABSENT: calf tenderness Musculoskeletal exam: PRESENT: ambulatory Neurological exam: PRESENT: alert, awake, oriented to person, oriented to place, other - Dyskinetic movements of the face noted Psychiatric exam: PRESENT: flat affect. ABSENT: agitated, anxious Focused psych exam: ABSENT: catatonic Skin exam: PRESENT: dry, normal color, warm Results Laboratory Results: 11/01/19 13:30 11/08/19 04:29 11/08/19 04:29 Sodium 117.1 L* Potassium 4.5 Chloride 82 L Carbon Dioxide 23 Anion Gap 12 BUN 20 Creatinine 1.07 Est GFR ( Amer) > 60 Glucose 101 Calcium 9.6 Impressions: Chest X-Ray 11/03/19 00:00 IMPRESSION: NO ACUTE RADIOGRAPHIC FINDING IN THE CHEST. EMPHYSEMA. Assessment and Plan - Diagnosis (1) Hyponatremia Is this a current diagnosis for this admission?: Yes Plan: Likely related to polydipsia and excessive free water intake Patient received 1 dose of tolvaptan Patient exceeded his fluid restriction of her preceding 24 hours and his sodium has gone back down Continue 1200 cc fluid restriction with regular diet, enforced with nursing staff the importance of not allowing patient to have excess fluids Gatorade ordered on meal trays as fluids Psychiatric medications adjusted per recommendations of mental health field sales consultant Nephrology input appreciated, per nephrology patient may be discharged if his sodium is back up to 125 Continue strict I/Os Monitor BMP (2) Primary polydipsia Is this a current diagnosis for this admission?: Yes Plan: As noted above, reinforced with nursing staff importance of strictly following fluid restriction See above for hyponatremia treatment (3) Schizophrenia Is this a current diagnosis for this admission?: Yes Plan: Mental Health was consulted and input/assistance appreciated Continue benztropine mesylate 1 mg p.o. daily Continue divalproex 250 mg p.o. every 12 hours Continue gabapentin 600 mg p.o. every 12 hours Continue haloperidol 5 mg p.o. every 12 hours Continue clonazepam 0.5 mg p.o. 6 hours PRN (4) Hypertension Is this a current diagnosis for this admission?: Yes Plan: Adequate BP control Continue amlodipine 5 mg p.o. every 12 hours Continue diltiazem CD 180 mg p.o. daily Continue hydralazine 10 mg p.o. every 6 hours Continue lisinopril 20 mg p.o. daily (5) Emphysema lung Qualifiers: Emphysema type: unspecified Qualified Code(s): J43.9 - Emphysema, unspecified Is this a current diagnosis for this admission?: Yes Plan: Stable on room air Continue Breo Ellipta daily Continue albuterol/ipratropium nebs every 6 hours CXR 11/03/2019: No acute radiographic findings in the chest. Emphysema. (6) BPH (benign prostatic hyperplasia) Qualifiers: Lower urinary tract symptom presence: symptoms absent Qualified Code(s): N40.0 - Benign prostatic hyperplasia without lower urinary tract symptoms Is this a current diagnosis for this admission?: Yes Plan: Continue finasteride 5 mg p.o. daily (7) Acute kidney injury Is this a current diagnosis for this admission?: Yes Plan: Renal function improved however this is likely related to the fact that the patient exceeded his fluid restriction Nephrology following patient Patient has in the past and continues to decline IV fluids - Time Time Spent with patient: 25-34 minutes Anticipated Discharge Disposition: Intermediate Care Facility Anticipated Discharge: within 24 hours
[2019-11-09] MEDS: IPRATROPIUM/ALBUTEROL 0.5-2.5 MG/3 ML AMPUL NEB SCH ×3 (02:35→14:07)
[2019-11-09] MEDS: DILTIAZEM HCL 180 MG CAPSULE.CR PO SCH (06:53)
[2019-11-09] MEDS: HYDRALAZINE HCL 10 MG TABLET PO SCH ×3 (06:54→17:02)
[2019-11-09] MEDS: LISINOPRIL 10 MG TABLET PO SCH (06:54)
[2019-11-09] MEDS: PANTOPRAZOLE SODIUM 40 MG TABLET.DR PO SCH (06:55)
[2019-11-09] MEDS: FINASTERIDE 5 MG TABLET PO SCH (06:55)
[2019-11-09] MEDS: DIVALPROEX SODIUM 250 MG TABLET.DR PO SCH ×2 (06:55→17:03)
[2019-11-09] MEDS: GABAPENTIN 300 MG CAPSULE PO SCH ×2 (06:55→17:03)
[2019-11-09] MEDS: HEPARIN SOD (PORCINE) 5,000 UNIT/ML 1 ML VIAL SUBCUT SCH ×2 (06:56→13:30)
[2019-11-09 07:44] LABS: ANION GAP 7 (5-19); BLOOD UREA NITROGEN 22 mg/dL (7-20); CALCIUM 9.3 mg/dL (8.4-10.2); CARBON DIOXIDE 25 mmol/L (22-30); CHLORIDE 96 mmol/L (98-107); GLUCOSE 107 mg/dL (75-110); POTASSIUM 4.3 mmol/L (3.6-5.0)
[2019-11-09] MEDS: BENZTROPINE MESYLATE 1 MG TABLET PO SCH (12:00)
[2019-11-09] MEDS: HALOPERIDOL 5 MG TABLET PO SCH (12:00)
[2019-11-09] MEDS: FLUTICASONE/VILANTEROL 200-25 MCG/DOSE IH SCH (12:00)
[2019-11-09] MEDS: DOCUSATE SODIUM 100 MG CAPSULE PO SCH (12:00)
[2019-11-09] MEDS: SODIUM CHLORIDE 1 GM TABLET PO SCH (12:00)
[2019-11-09] MEDS: AMLODIPINE BESYLATE 10 MG TABLET PO SCH (12:00)
[2019-11-09] MEDS: DIVALPROEX SODIUM 125 MG CAP.SPRINK PO SCH (12:41)
--- NOTE | 2019-11-09 13:04 | PDOC DISCHARGE SUMMARY ---
Impression - Admit/DC Date/PCP Admission Date/Primary Care Provider: 11/03/19 14:02 Discharge Date: 11/09/19 - Discharge Diagnosis (1) Hyponatremia Is this a current diagnosis for this admission?: Yes (2) Primary polydipsia Is this a current diagnosis for this admission?: Yes (3) Schizophrenia Is this a current diagnosis for this admission?: Yes (4) Hypertension Is this a current diagnosis for this admission?: Yes (5) Emphysema lung Is this a current diagnosis for this admission?: Yes (6) BPH (benign prostatic hyperplasia) Is this a current diagnosis for this admission?: Yes (7) Acute kidney injury Is this a current diagnosis for this admission?: Yes - Additional Information Resuscitation Status: Full Code Discharge Diet: Regular, Other (Comments) - 1500 cc (ml) fluid resitricition Discharge Activity: Activity As Tolerated Prescriptions: Haloperidol [Haldol 5 mg Tablet] 5 mg PO Q12 #60 tablet Amlodipine Besylate [Norvasc 10 mg Tablet] 10 mg PO DAILY #30 tablet Sodium Chloride [Sodium Chloride 1 gm Tablet] 1 gm PO DAILY 30 Days tablet Home Medications: Finasteride [Proscar 5 mg Tablet] 5 mg PO Q6AM 07/13/16 Omeprazole 40 mg PO Q6AM 07/13/16 Acetaminophen [Tylenol] 650 mg PO Q4HP PRN 11/01/19 Budesonide/Formoterol Fumarate [Symbicort HFA 160-4.5 mcg Inhaler 6 gm] 2 puff IH BID@0600,1800 11/01/19 Calcium Carbonate [Tums Chewable 500 mg Tab.chew] 1,000 mg PO ASDIR PRN 11/01/19 Diltiazem HCl [Diltiazem 24Hr ER] 180 mg PO Q6AM 11/01/19 Divalproex Sodium [Depakote Sprinkle 125 mg Capsule] 125 mg PO NOON 11/01/19 Divalproex Sodium [Depakote] 250 mg PO BID@0600,1800 11/01/19 Hydralazine HCl [Apresoline 10 mg Tablet] 10 mg PO Q8@0600,1200,1800 11/01/19 Lisinopril 20 mg PO Q6AM 11/01/19 Amlodipine Besylate [Norvasc 10 mg Tablet] 10 mg PO DAILY #30 tablet 11/09/19 Benztropine Mesylate [Cogentin 1 mg Tablet] 1 mg PO DAILY #0 11/09/19 Gabapentin [Neurontin 300 mg Capsule] 600 mg PO NOON #0 11/09/19 Haloperidol [Haldol 5 mg Tablet] 5 mg PO Q12 #60 tablet 11/09/19 Sodium Chloride [Sodium Chloride 1 gm Tablet] 1 gm PO DAILY 30 Days tablet 11/09/19 History of Present Illiness History of Present Illness: HU GARCIA is a 59 year old male H significant for schizophrenia, narcissistic personality disorder, GERD, and BPH who presented to the ED after being found to have abnormal, pacifically, hyponatremia. The patient has signif icant a psychiatric history and it was felt that his hyponatremia was related to excessive free water consumption. The patient was admitted to the hospitalist service for further evaluation and treatment. Hospital Course Hospital Course: During the patient's hospital course mental health and renal consults were obtained. Psychiatric medications were adjusted per the recommendations of the mental health service and the patient's hyponatremia was managed with a combination of fluid restriction and 2 dose of tolvaptan. Patient's sodium trended back up initially however towards the end of his hospitalization he had excessive water intake and his sodium decreased again. He was seen by the controlled atmospheric furnace brazer and placed back on his strict fluid restriction in addition to receiving a second dose of tolvaptan. Nephrology cleared the patient for discharge provided his follow-up sodium level was at least 125 which it was on the day of discharge. (1) Hyponatremia Is this a current diagnosis for this admission?: Yes Plan: Likely related to polydipsia and excessive free water intake Patient received dose of tolvaptan earlier in his hospitalization and a second dose on 11/08/2019 Patient exceeded his fluid restriction of her preceding 24 hours and his sodium has gone back down Continue 1200 cc fluid restriction with regular diet, enforced with nursing staff the importance of not allowing patient to have excess fluids Gatorade ordered on meal trays as fluids Psychiatric medications adjusted per recommendations of mental health ruby on rails consultant Nephrology input appreciated, per nephrology patient may be discharged if his sodium is back up to 125 Continue strict I/Os Monitor BMP (2) Primary polydipsia Is this a current diagnosis for this admission?: Yes Plan: As noted above, reinforced with nursing staff importance of strictly following fluid restriction See above for hyponatremia treatment (3) Schizophrenia Is this a current diagnosis for this admission?: Yes Plan: Mental Health was consulted and input/assistance appreciated Continue benztropine mesylate 1 mg p.o. daily Continue divalproex 250 mg p.o. every 12 hours Continue gabapentin 600 mg p.o. every 12 hours Continue haloperidol 5 mg p.o. every 12 hours Continue clonazepam 0.5 mg p.o. 6 hours PRN (4) Hypertension Is this a current diagnosis for this admission?: Yes Plan: Adequate BP control Continue amlodipine 5 mg p.o. every 12 hours Continue diltiazem CD 180 mg p.o. daily Continue hydralazine 10 mg p.o. every 6 hours Continue lisinopril 20 mg p.o. daily (5) Emphysema lung Qualifiers: Emphysema type: unspecified Qualified Code(s): J43.9 - Emphysema, unspecified Is this a current diagnosis for this admission?: Yes Plan: Stable on room air Continue Breo Ellipta daily Continue albuterol/ipratropium nebs every 6 hours CXR 11/03/2019: No acute radiographic findings in the chest. Emphysema. (6) BPH (benign prostatic hyperplasia) Qualifiers: Lower urinary tract symptom presence: symptoms absent Qualified Code(s): N40.0 - Benign prostatic hyperplasia without lower urinary tract symptoms Is this a current diagnosis for this admission?: Yes Plan: Continue finasteride 5 mg p.o. daily (7) Acute kidney injury Is this a current diagnosis for this admission?: Yes Plan: Renal function improved however this is likely related to the fact that the patient exceeded his fluid restriction Nephrology following patient Patient has in the past and continues to decline IV fluids Physical Exam Vital Signs: Temp Pulse Resp BP Pulse Ox 98.1 F 73 18 100/58 L 99 11/08/19 23:23 11/08/19 23:23 11/08/19 23:23 11/08/19 23:23 11/08/19 23:23 Intake & Output 11/08/19 11/09/19 11/10/19 06:59 06:59 06:59 Intake Total 2730 1301 Balance 2730 1301 Weight 85.2 kg 83.5 kg General appearance: PRESENT: no acute distress, cooperative, well-developed, well-nourished Head exam: PRESENT: atraumatic, normocephalic Eye exam: PRESENT: conjunctiva pink Mouth exam: PRESENT: moist, tongue midline, other - Few mouth and tongue fasciculations noted Neck exam: ABSENT: JVD Respiratory exam: PRESENT: clear to auscultation alan, symmetrical, unlabored. ABSENT: accessory muscle use Cardiovascular exam: PRESENT: RRR, +S1, +S2 Pulses: PRESENT: normal carotid pulses, normal radial pulses GI/Abdominal exam: PRESENT: normal bowel sounds, soft. ABSENT: distended, tenderness Rectal exam: PRESENT: deferred Extremities exam: PRESENT: full ROM. ABSENT: clubbing Musculoskeletal exam: PRESENT: ambulatory Neurological exam: PRESENT: alert, awake, oriented to person, oriented to place, oriented to time, oriented to situation, other Psychiatric exam: PRESENT: unusual affect. ABSENT: agitated, anxious Focused psych exam: ABSENT: catatonic, paranoid, restlessness Skin exam: PRESENT: dry, normal color, warm Results Laboratory Results: WBC 7.4 10^3/uL (4.0-10.5) 11/01/19 13:30 RBC 4.57 10^6/uL (4.35-5.55) 11/01/19 13:30 Hgb 13.7 g/dL (13.5-17.0) 11/01/19 13:30 Hct 39.7 % (37.9-51.0) 11/01/19 13:30 MCV 87 fl (80-97) 11/01/19 13:30 MCH 29.9 pg (27.0-33.4) 11/01/19 13:30 MCHC 34.5 g/dL (32.0-36.0) 11/01/19 13:30 RDW 14.4 % (11.5-14.0) H 11/01/19 13:30 Plt Count 290 10^3/uL (150-450) 11/01/19 13:30 Lymph % (Auto) 18.2 % (13-45) 11/01/19 13:30 [place] % (Auto) 5.7 % (3-13) 11/01/19 13:30 Eos % (Auto) 1.4 % (0-6) 11/01/19 13:30 Baso % (Auto) 1.3 % (0-2) 11/01/19 13:30 Absolute Neuts (auto) 5.4 10^3/uL (1.7-8.2) 11/01/19 13:30 Absolute Lymphs (auto) 1.3 10^3/uL (0.5-4.7) 11/01/19 13:30 Absolute Monos (auto) 0.4 10^3/uL (0.1-1.4) 11/01/19 13:30 Absolute Eos (auto) 0.1 10^3/uL (0.0-0.6) 11/01/19 13:30 Absolute Basos (auto) 0.1 10^3/uL (0.0-0.2) 11/01/19 13:30 Seg Neutrophils % 73.4 % (42-78) 11/01/19 13:30 Sodium 128.3 mmol/L (137-145) L 11/09/19 07:09 Potassium 4.3 mmol/L (3.6-5.0) 11/09/19 07:09 Chloride 96 mmol/L (98-107) L 11/09/19 07:09 Carbon Dioxide 25 mmol/L (22-30) 11/09/19 07:09 Anion Gap 7 (5-19) 11/09/19 07:09 BUN 22 mg/dL (7-20) H 11/09/19 07:09 Creatinine 1.13 mg/dL (0.52-1.25) 11/09/19 07:09 Est GFR ( Amer) > 60 (>60) 11/09/19 07:09 Est GFR (MDRD) Non-Af > 60 (>60) 11/09/19 07:09 Glucose 107 mg/dL (75-110) 11/09/19 07:09 Serum Osmolality 267 mOsm/kg (275-301) L 11/01/19 20:01 Uric Acid 4.3 mg/dL (3.5-8.5) 11/04/19 05:41 Calcium 9.3 mg/dL (8.4-10.2) 11/09/19 07:09 Magnesium 2.0 mg/dL (1.6-2.3) 11/05/19 09:36 Total Bilirubin 0.4 mg/dL (0.2-1.3) 11/01/19 13:30 Direct Bilirubin 0.0 mg/dL (0.0-0.4) 11/01/19 13:30 Neonat Total Bilirubin Not Reportable 11/01/19 13:30 Neonat Direct Bilirubin Not Reportable 11/01/19 13:30 Neonat Indirect Bili Not Reportable 11/01/19 13:30 AST 15 U/L (17-59) L 11/01/19 13:30 ALT 11 U/L (<50) 11/01/19 13:30 Alkaline Phosphatase 75 U/L (38-126) 11/01/19 13:30 Total Protein 6.7 g/dL (6.3-8.2) 11/01/19 13:30 Albumin 3.8 g/dL (3.5-5.0) 11/01/19 13:30 Triglycerides 88 mg/dL (<150) 11/02/19 11:20 Cholesterol 113.85 mg/dL (0-200) 11/02/19 11:20 LDL Cholesterol Direct 43 mg/dL (<100) 11/02/19 11:20 VLDL Cholesterol 18.0 mg/dL (10-31) 11/02/19 11:20 HDL Cholesterol 56 mg/dL (>40) 11/02/19 11:20 TSH 0.72 uIU/mL (0.47-4.68) 11/02/19 11:20 Random Cortisol 12.50 ug/dL (None Established) 11/04/19 05:41 Urine Color STRAW 11/01/19 23:20 Urine Appearance CLEAR 11/01/19 23:20 Urine pH 7.0 (5.0-9.0) 11/01/19 23:20 Ur Specific [place] 1.003 11/01/19 23:20 Urine Protein NEGATIVE mg/dL (NEGATIVE) 11/01/19 23:20 Urine Glucose (UA) NEGATIVE mg/dL (NEGATIVE) 11/01/19 23:20 Urine Ketones NEGATIVE mg/dL (NEGATIVE) 11/01/19 23:20 Urine Blood SMALL (NEGATIVE) H 11/01/19 23:20 Urine Nitrite NEGATIVE (NEGATIVE) 11/01/19 23:20 Urine Bilirubin NEGATIVE (NEGATIVE) 11/01/19 23:20 Urine Urobilinogen NEGATIVE mg/dL (<2.0) 11/01/19 23:20 Ur Leukocyte Esterase LARGE (NEGATIVE) H 11/01/19 23:20 Urine WBC (Auto) 27 /HPF 11/01/19 23:20 Urine RBC (Auto) 2 /HPF 11/01/19 23:20 Amorphous Sediment Auto TRACE /HPF 11/01/19 23:20 Urine Mucus (Auto) RARE /LPF 11/01/19 23:20 Urine Osmolality 97 mOsm/kg (300-900) L 11/04/19 12:45 Urine Sodium 17 mmol/L (30-90) L 11/04/19 12:45 Urine Ascorbic Acid NEGATIVE (NEGATIVE) 11/01/19 23:20 COVID-19 Source NASOPHARYNGEAL 11/06/19 09:40 COVID-19 (RILEY) NOT DETECTED 11/06/19 09:40 Impressions: Chest X-Ray 11/01/19 00:00 IMPRESSION: COPD. No acute findings. Chest X-Ray 11/03/19 00:00 IMPRESSION: NO ACUTE RADIOGRAPHIC FINDING IN THE CHEST. EMPHYSEMA. Plan Health Concerns: Patient will need to adhere to a strict 1500 cc fluid restriction Patient should use electrolyte rich fluids such as Gatorade to quench his thirst Plan of Treatment: 1500 cc fluid restriction Goals: No excessive free water intake Time Spent: Greater than 30 Minutes Stroke Is this a Stroke Patient?: No Acute Heart Failure - Is this a Heart Failure Patient?: No
[2019-11-09 17:31] VITALS: BP 122/66
== END 2019-11-09 17:30 | DRG 641 ==
LOC: ER 13:14 → EH 18:16 → 4S 19:00 → OBSVTOIN 11-03 14:02
PROVIDERS: ADMIT Internal Medicine; ATTEND Nurse Practitioner
DX: E87.1 Hypo-osmolality and hyponatremia (principal); N17.9 Acute kidney failure, unspecified; J43.9 Emphysema, unspecified; N40.0 Benign prostatic hyperplasia without lower urinary tract symptoms; I10 Essential (primary) hypertension; Z79.899 Other long term (current) drug therapy; F60.81 Narcissistic personality disorder; K21.9 Gastro-esophageal reflux disease without esophagitis; F25.9 Schizoaffective disorder, unspecified; M19.90 Unspecified osteoarthritis, unspecified site; Z87.891 Personal history of nicotine dependence; R63.1 Polydipsia; Z03.818 Encounter for observation for suspected exposure to other biological agents ruled out
CPT/HCPCS: 36415; 71045; 80048; 80053; 80061; 81001; 82533; 83735; 83930; 83935; 84300; 84443; 84550; 85025; 87635; 93005; 93010; 99285; C9803; G0378; J0360; J1644; J3490

== ENCOUNTER 2019-12-25 13:08 | Inpatient (IN) | payer MEDICAID ==
[2019-12-25 13:57] LABS: ABSOLUTE MONOCYTES (AUTO) 0.9 10^3/uL (0.1-1.4); ABSOLUTE NEUT (AUTO) 12.9 10^3/uL (1.7-8.2); BASOPHILS % (AUTO) 0.3 % (0-2); EOSINOPHILS % (AUTO) 0.1 % (0-6); HEMATOCRIT 35.7 % (37.9-51.0); HEMOGLOBIN 12.7 g/dL (13.5-17.0); LYMPHOCYTES % (AUTO) 6.5 % (13-45); MEAN CORPUSCULAR HEMOGLOBIN 30.2 pg (27.0-33.4); MEAN CORPUSCULAR HGB CONC 35.6 g/dL (32.0-36.0); MEAN CORPUSCULAR VOLUME 85 fl (80-97); PLATELET COUNT 373 10^3/uL (150-450); RED BLOOD COUNT 4.21 10^6/uL (4.35-5.55); RED CELL DISTRIBUTION WIDTH 14.9 % (11.5-14.0); SEGMENTED NEUTROPHILS % (AUTO) 87.1 % (42-78); TOTAL CELLS COUNTED % (AUTO) 100 %; WHITE BLOOD COUNT 14.8 10^3/uL (4.0-10.5)
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
[2019-12-25 14:11] LABS: ALBUMIN 3.9 g/dL (3.5-5.0); ALKALINE PHOSPHATASE 87 U/L (38-126); APPEARANCE,URINE CLEAR; ASPARTATE AMINO TRANSFERASE 20 U/L (17-59); BILIRUBIN,DIRECT 0.3 mg/dL (0.0-0.4); BILIRUBIN,TOTAL 0.6 mg/dL (0.2-1.3); BILIRUBIN,URINE NEGATIVE (NEGATIVE); BLOOD UREA NITROGEN 12 mg/dL (7-20); CALCIUM 8.9 mg/dL (8.4-10.2); CARBON DIOXIDE 21 mmol/L (22-30); CHLORIDE 86 mmol/L (98-107); COLOR,URINE STRAW; GLUCOSE 118 mg/dL (75-110); GLUCOSE, URINE NEGATIVE (NEGATIVE); KETONES,URINE NEGATIVE (NEGATIVE); LEUKOCYTE ESTERASE,URINE TRACE (NEGATIVE); NITRITE,URINE NEGATIVE (NEGATIVE); POTASSIUM 4.9 mmol/L (3.6-5.0); PROTEIN,URINE NEGATIVE (NEGATIVE); TOTAL PROTEIN 6.3 g/dL (6.3-8.2); URINE SPECIFIC GRAVITY 1.004; UROBILINOGEN,URINE NEGATIVE mg/dL (<2.0)
[2019-12-25 14:24] LABS: ANION GAP 10 (5-19)
[2019-12-25 14:25] LABS: CREATINE KINASE 176 U/L (55-170)
--- NOTE | 2019-12-25 14:31 | RADIOLOGY REPORT (SQ) ---
EXAM DESCRIPTION: CHEST SINGLE VIEW IMAGES COMPLETED DATE/TIME: 12/25/2019 2:13 pm REASON FOR STUDY: heat exhaustion COMPARISON: None. EXAM PARAMETERS: NUMBER OF VIEWS: One view. TECHNIQUE: An AP view of the chest was obtained. RADIATION DOSE: NA LIMITATIONS: None. FINDINGS: LUNGS AND PLEURA: Chronic upper lobe predominant emphysema and bibasilar interstitial opac ities. The asymmetric opacities in the inferolateral aspect of the left hemithorax are have develope d since the prior CT and could represent atelectasis or a pneumonia. There is no sizable pleural eff usion or pneumothorax. MEDIASTINUM AND HILAR STRUCTURES: No mediastinal or hilar contour abnormality. HEART AND VASCULAR STRUCTURES: The cardiac silhouette and pulmonary vasculature are within normal cagle its. BONES: No acute findings. HARDWARE: None in the chest. OTHER: No other finding. IMPRESSION: Asymmetric opacities in the inferolateral aspect of the left hemithorax that could repre sent atelectasis or a pneumonia. TECHNICAL DOCUMENTATION: JOB ID: [id number] 2010 [employer] All Rights Reserved Reading location - IP/workstation name: [email or web address]
[2019-12-25] MEDS ORDERED: NORMAL SALINE 1000 ML 1,000 ML IV ONE (14:40)
[2019-12-25] MEDS ORDERED: VANCOMYCIN HCL INJ 1000 MG VIAL IV ONE (14:44)
[2019-12-25] MEDS ORDERED: PIPERACILLIN/TAZOBACTAM 3.375 GM VIAL IV ONE (14:55)
[2019-12-25] MEDS ORDERED: SODIUM CHLORIDE 3% 500 ML IV ONE ×2 (15:30→18:16)
[2019-12-25] MEDS ORDERED: HALOPERIDOL LACTATE INJ 5 MG/1 ML VIAL IV ONE (16:08)
[2019-12-25] MEDS ORDERED: LORAZEPAM INJ 2 MG/1 ML VIAL IV ONE (16:08)
[2019-12-25] MEDS ORDERED: LEVETIRACETAM 1000 MG/NACL-ISO 1,000 MG/100 ML RTUPB IV SCH (16:30)
[2019-12-25] MEDS ORDERED: KETAMINE HCL INJ 500 MG/10 ML VIAL IM ONE (16:54)
[2019-12-25] MEDS ORDERED: PHENYTOIN SODIUM INJ/PF 100 MG/2 ML SDV IV ONE (17:15)
[2019-12-25] MEDS ORDERED: ONDANSETRON HCL INJ/PF 4 MG/2 ML SDV IV PRN (17:24)
[2019-12-25] MEDS ORDERED: NORMAL SALINE 1000 ML 1,000 ML IV PRN (17:24)
[2019-12-25] MEDS ORDERED: ACETAMINOPHEN 650 MG SUPP.RECT PR PRN (17:24)
--- NOTE | 2019-12-25 17:46 | PDOC H&P ---
History of Present Illness Patient complains of: Possible heat exhaustion History of Present Illness: HU GARCIA is a 59 year old male with history of schizophrenia, gastroparesis reflux disease, COPD, history of hyponatremia was brought to the emergency room after he was found leaning up to both ears after walking for [address] he was an escape from [facility] and was placed on missing person file. Work-up in the ER indicates pneumonia, hyponatremia with a serum sodium of 116.8. ER physician discussed the case with Dr. Webb and also with ICU technical support analyst Dr. Webb was to give 50 mL of 3% normal saline. But ICU attending thinks patient does need to be in ICU does not need to be in 3% normal saline. Dr. arredondo called me for admission. After discussion with Dr. Webb, I requested Dr. Arredondo to give 3% normal saline 50 cc over 1 and half hour. I went to see the patient and he told me patient has a seizure-like activity and is able to give a Keppra. Also found to have a short brief of V. tach in the emergency room. The nurses have a hard time keeping the IV line in and he pulled a couple of IV lines. He was given a Catemine and IV line was accessed and started on 3% normal saline. I am going to admit the patient to IMCU but I requested Dr. arredondo to keep the patient in the ER tonight until mental status and hyponatremia improves. He agreed. pt is unable to give any history. Past Medical History Cardiac Medical History: Denies: Coronary Artery Disease, Myocardial Infarction, Hypertension Pulmonary Medical History: Reports: Asthma, Chronic Obstructive Pulmonary Disease (COPD) Denies: Bronchitis, Pneumonia Neurological Medical History: Denies: Seizures GI Medical History: Reports: Gastroesophageal Reflux Disease Denies: Hepatitis, Hiatal Hernia Musculoskeltal Medical History: Reports: Arthritis Psychiatric Medical History: Reports: Schizoaffective Disorder Denies: Depression Hematology: Denies: Anemia, Sickle Cell Disease Past Surgical History Past Surgical History: Denies: Pacemaker Social History Lives with: [facility] Smoking Status: Current Every Day Smoker Frequency of Alcohol Use: None Hx Recreational Drug Use: No Drugs: None Hx Prescription Drug Abuse: No - Advance Directive Resuscitation Status: Full Code Family History Family History: None Parental Family History Reviewed: Yes - Unknown. Children Family History Reviewed: Unknown Sibling(s) Family History Reviewed.: Unknown Medication/Allergy Home Medications: Finasteride [Proscar 5 mg Tablet] 5 mg PO Q6AM 07/13/16 Omeprazole 40 mg PO Q6AM 07/13/16 Acetaminophen [Tylenol] 650 mg PO Q4HP PRN 11/01/19 Budesonide/Formoterol Fumarate [Symbicort HFA 160-4.5 mcg Inhaler 6 gm] 2 puff IH BID@0600,1800 11/01/19 Calcium Carbonate [Tums Chewable 500 mg Tab.chew] 1,000 mg PO ASDIR PRN 11/01/19 Diltiazem HCl [Diltiazem 24Hr ER] 180 mg PO Q6AM 11/01/19 Divalproex Sodium [Depakote Sprinkle 125 mg Capsule] 125 mg PO NOON 11/01/19 Divalproex Sodium [Depakote] 250 mg PO BID@0600,1800 11/01/19 Hydralazine HCl [Apresoline 10 mg Tablet] 10 mg PO Q8@0600,1200,1800 11/01/19 Lisinopril 20 mg PO Q6AM 11/01/19 Benztropine Mesylate [Cogentin 1 mg Tablet] 1 mg PO DAILY #0 11/09/19 Gabapentin [Neurontin 300 mg Capsule] 600 mg PO NOON #0 11/09/19 Haloperidol [Haldol 5 mg Tablet] 5 mg PO Q12 #60 tablet 11/09/19 Sodium Chloride [Sodium Chloride 1 gm Tablet] 1 gm PO DAILY 30 Days tablet 11/09/19 Allergies/Adverse Reactions: No Known Allergies Allergy (Verified 12/25/19 13:46) Review of Systems ROS unobtainable: Due to mental status Physical Exam Vital Signs: Temp Pulse Resp BP Pulse Ox 98.9 F 22 H 175/100 H 97 12/25/19 14:35 12/25/19 15:05 12/25/19 15:05 12/25/19 15:05 Intake & Output 12/24/19 12/25/19 12/26/19 06:59 06:59 06:59 Intake Total 1000 Balance 1000 General appearance: PRESENT: well-developed, other - Patient is not cooperative and combative in the ER.. ABSENT: cooperative Head exam: PRESENT: atraumatic Eye exam: PRESENT: other - Pupils are constricted but reactive. Mouth exam: PRESENT: moist, tongue midline Teeth exam: PRESENT: poor dentation Neck exam: ABSENT: carotid bruit, JVD, lymphadenopathy, thyromegaly Respiratory exam: PRESENT: decreased breath sounds, rhonchi Cardiovascular exam: PRESENT: tachycardia GI/Abdominal exam: PRESENT: normal bowel sounds, soft. ABSENT: distended, guarding, mass, organolmegaly, rebound, tenderness Rectal exam: PRESENT: deferred Neurological exam: PRESENT: altered Psychiatric exam: PRESENT: appropriate affect, normal mood. ABSENT: homicidal ideation, suicidal ideation Results Laboratory Results: 12/25/19 13:39 12/25/19 13:39 12/25/19 12/25/19 12/25/19 13:39 13:39 13:39 WBC 14.8 H RBC 4.21 L Hgb 12.7 L Hct 35.7 L MCV 85 MCH 30.2 MCHC 35.6 RDW 14.9 H Plt Count 373 Seg Neutrophils % 87.1 H Sodium 116.8 L* Potassium 4.9 Chloride 86 L Carbon Dioxide 21 L Anion Gap 10 BUN 12 Creatinine 0.97 Est GFR ( Amer) > 60 Glucose 118 H Lactic Acid Calcium 8.9 Total Bilirubin 0.6 AST 20 Alkaline Phosphatase 87 Total Protein 6.3 Albumin 3.9 Urine Color STRAW Urine Appearance CLEAR Urine pH 8.0 Ur Specific [place] 1.004 Urine Protein NEGATIVE Urine Glucose (UA) NEGATIVE Urine Ketones NEGATIVE Urine Blood NEGATIVE Urine Nitrite NEGATIVE Ur Leukocyte Esterase TRACE H Urine WBC (Auto) 1 Urine RBC (Auto) 1 12/25/19 14:17 WBC RBC Hgb Hct MCV MCH MCHC RDW Plt Count Seg Neutrophils % Sodium Potassium Chloride Carbon Dioxide Anion Gap BUN Creatinine Est GFR ( Amer) Glucose Lactic Acid 1.3 Calcium Total Bilirubin AST Alkaline Phosphatase Total Protein Albumin Urine Color Urine Appearance Urine pH Ur Specific [place] Urine Protein Urine Glucose (UA) Urine Ketones Urine Blood Urine Nitrite Ur Leukocyte Esterase Urine WBC (Auto) Urine RBC (Auto) 12/25/19 12/25/19 12/25/19 13:39 13:39 13:39 Creatine Kinase 176 H Cancelled Troponin I 0.068 Impressions: Chest X-Ray 12/25/19 13:54 IMPRESSION: Asymmetric opacities in the inferolateral aspect of the left hemithorax that could represent atelectasis or a pneumonia. Assessment and Plan - Diagnosis (1) Hyponatremia Is this a current diagnosis for this admission?: Yes Plan: 12/25/2019-patient is going to be admitted to [facility] with a diagnosis of hyponatremia and seizure-like activity in the ER. Short brief of V. tach is noticed in the ER. In my opinion ICU is more appropriate. Patient is going to be given a Dilantin loading dose and continue Dilantin in IMCU. GI prophylaxis DVT prophylaxis initiated. Fall aspiration seizure precautions requested. To give hypertonic saline 50 cc over 1 and half hour time. To do the chemistry every 4 hours. Neurochecks will be requested every 4 hours. Patient condition is cri tical at this time. The goal is to bring the serum sodium to around 124 in the next [address] Jt Webb was requested. Serum osmolality urine osmolality is requested. (2) Pneumonia Qualifiers: Pneumonia type: due to unspecified organism Laterality: left Lung location: lower lobe of lung Qualified Code(s): J18.9 - Pneumonia, unspecified organism Is this a current diagnosis for this admission?: Yes Plan: 12/25/2019-chest x-ray suggestive of atelectasis versus pneumonia. To start him on IV Zosyn and vancomycin. Blood cultures are requested. To supplement oxygen 2 L via nasal cannula. There is a possibility of aspiration pneumonia because of change in mental status. (3) Hypertension Is this a current diagnosis for this admission?: No Plan: 12/25/2019-patient has history of hypertension hold p.o. medications at this time. To start on IV hydralazine 10 mg every 6 hours as needed for systolic blood pressure more than 170. (4) Altered mental status Is this a current diagnosis for this admission?: Yes Plan: 12/25/2019-patient found to be in acute metabolic encephalopathy. It may be secondary to hyponatremia. Patient is receiving 3% normal saline. To closely monitor the serum sodium levels every 4 hours. (5) Seizure Is this a current diagnosis for this admission?: Yes Plan: 12/25/2019-patient found to have seizure-like activity in the ER to give a Dilantin loading dose. And to continue Dilantin 100 mg IV twice a day. Patient will be n.p.o. (6) Tobacco abuse Is this a current diagnosis for this admission?: No Plan: 12/25/2019-patient has history of tobacco abuse is a daily day smoker. To place him nicotine patch. - Time Anticipated Discharge Disposition: Assisted Living with Home Health Services Anticipated Discharge Timeframe: within 72 hours
[2019-12-25] MEDS ORDERED: IPRATROPIUM/ALBUTEROL 0.5-2.5 MG/3 ML AMPUL NEB ONE (18:00)
[2019-12-25 20:48] LABS: ALBUMIN 3.9 g/dL (3.5-5.0); ALKALINE PHOSPHATASE 87 U/L (38-126); ANION GAP 9 (5-19); ASPARTATE AMINO TRANSFERASE 19 U/L (17-59); BILIRUBIN,DIRECT 0.2 mg/dL (0.0-0.4); BILIRUBIN,TOTAL 0.5 mg/dL (0.2-1.3); BLOOD UREA NITROGEN 10 mg/dL (7-20); CALCIUM 8.7 mg/dL (8.4-10.2); CARBON DIOXIDE 23 mmol/L (22-30); CHLORIDE 92 mmol/L (98-107); GLUCOSE 134 mg/dL (75-110); TOTAL PROTEIN 6.6 g/dL (6.3-8.2)
--- NOTE | 2019-12-25 21:19 | PDOC CONSULTATION ---
Consultation Consult Date: 12/25/19 Provider Consulted: Юлия COUGHLIN Consult reason:: Acute hyponatremia with AMS History of Present Illness Admission Date/PCP: 12/25/19 19:24 History of Present Illness: HU GARCIA is a 59 year old male with a background history of schizophrenia, hypertension , chronic hyponatremia and possible cognitive impairment who apparently escaped from [facility] and walked 6 -7 miles and was finally found in a very weakened state on the side of the road and brought to the ER. Evaluations in the ER revealed that he has pneumonia and other incidental labs shows he had a low sodium of 116.Patient was found to be semi-responsive on initial evaluations. Later apparently there was some concern that he might have had a seizure attack and soon after he became very combative. I initially discussed the case with Dr. Arredondo the ER physician and advised that the patient should be started immediately on 3% saline 200 cc over 1.5 hours. However that was not carried out and later I had a discussion with Dr. Ramsey, the hospitalist who was concerned with the change in the patient's mental status and the fact that the 3% saline had not yet been started. At that time I advised that the patient be administered 50 cc of 3% saline over a 10-minutes followed by 150 cc over 1.5 hours. Furthermore the patient was administered ketamine followed by Dilantin infusion. I am seeing the patient after all of this is happened. He is sleeping quietly but easily awakened awakened to loud oral commands. He answers in monosyllables. The nurses are pleased with the progress he has made after the current administration of the above medications. Past Medical History Cardiac Medical History: Reports: Hypertension-primary Denies: Coronary Artery Disease, Myocardial Infarction Pulmonary Medical History: Reports: Asthma, Chronic Obstructive Pulmonary Disease (COPD) Denies: Bronchitis, Pneumonia Neurological Medical History: Denies: Seizures Renal/ Medical History: Reports: Benign Prostatic Hyperplasia GI Medical History: Reports: Gastroesophageal Reflux Disease Denies: Hepatitis, Hiatal Hernia Musculoskeltal Medical History: Reports: Arthritis Psychiatric Medical History: Reports: Schizoaffective Disorder Denies: Depression Past Surgical History Past Surgical History: Denies: Pacemaker Social History Lives with: [facility] Smoking Status: Current Every Day Smoker Frequency of Alcohol Use: None Hx Recreational Drug Use: No Drugs: None Hx Prescription Drug Abuse: No - Advance Directive Resuscitation Status: Full Code Family History Parental Family History Reviewed: No - Patient unable to answer. Children Family History Reviewed: No Sibling(s) Family History Reviewed.: No Medication/Allergy Home Medications: Finasteride [Proscar 5 mg Tablet] 5 mg PO Q6AM 07/13/16 Omeprazole 40 mg PO Q6AM 07/13/16 Acetaminophen [Tylenol] 650 mg PO Q4HP PRN 11/01/19 Budesonide/Formoterol Fumarate [Symbicort HFA 160-4.5 mcg Inhaler 6 gm] 2 puff IH BID@0600,1800 11/01/19 Calcium Carbonate [Tums Chewable 500 mg Tab.chew] 1,000 mg PO ASDIR PRN 11/01/19 Diltiazem HCl [Diltiazem 24Hr ER] 180 mg PO Q6AM 11/01/19 Divalproex Sodium [Depakote Sprinkle 125 mg Capsule] 125 mg PO NOON 11/01/19 Divalproex Sodium [Depakote] 250 mg PO BID@0600,1800 11/01/19 Hydralazine HCl [Apresoline 10 mg Tablet] 10 mg PO Q8@0600,1200,1800 11/01/19 Lisinopril 20 mg PO Q6AM 11/01/19 Benztropine Mesylate [Cogentin 1 mg Tablet] 1 mg PO DAILY #0 11/09/19 Gabapentin [Neurontin 300 mg Capsule] 600 mg PO NOON #0 11/09/19 Haloperidol [Haldol 5 mg Tablet] 5 mg PO Q12 #60 tablet 11/09/19 Sodium Chloride [Sodium Chloride 1 gm Tablet] 1 gm PO DAILY 30 Days tablet 11/09/19 Allergies/Adverse Reactions: No Known Allergies Allergy (Verified 12/25/19 13:46) Review of Systems ROS unobtainable: Due to mental status Physical Exam Vital Signs: Temp Pulse Resp BP Pulse Ox 98.9 F 21 H 175/100 H 96 12/25/19 14:35 12/25/19 20:00 12/25/19 15:05 12/25/19 19:00 Intake & Output 12/24/19 12/25/19 12/26/19 06:59 06:59 06:59 Intake Total 1000 Balance 1000 Weight 104.326 kg General appearance: PRESENT: no acute distress Eye exam: PRESENT: EOMI, PERRLA. ABSENT: scleral icterus Ear exam: PRESENT: normal external ear exam Mouth exam: PRESENT: neck supple. ABSENT: moist Neck exam: ABSENT: lymphadenopathy, meningismus, tenderness, thyromegaly, tracheal deviation Respiratory exam: PRESENT: clear to auscultation alan, decreased breath sounds. ABSENT: crackles Cardiovascular exam: PRESENT: +S1, +S2 GI/Abdominal exam: PRESENT: normal bowel sounds, soft. ABSENT: organomegaly, tenderness Extremities exam: ABSENT: pedal edema Neurological exam: PRESENT: awake. ABSENT: alert, oriented to person, oriented to time Psychiatric exam: PRESENT: flat affect Skin exam: ABSENT: cyanosis, intact, mottled, rash Results Laboratory Results: 12/25/19 13:39 12/25/19 20:11 12/25/19 12/25/19 12/25/19 13:39 13:39 13:39 WBC 14.8 H RBC 4.21 L Hgb 12.7 L Hct 35.7 L MCV 85 MCH 30.2 MCHC 35.6 RDW 14.9 H Plt Count 373 Seg Neutrophils % 87.1 H Sodium 116.8 L* Potassium 4.9 Chloride 86 L Carbon Dioxide 21 L Anion Gap 10 BUN 12 Creatinine 0.97 Est GFR ( Amer) > 60 Glucose 118 H Serum Osmolality Lactic Acid Calcium 8.9 Total Bilirubin 0.6 AST 20 Alkaline Phosphatase 87 Total Protein 6.3 Albumin 3.9 TSH Urine Color STRAW Urine Appearance CLEAR Urine pH 8.0 Ur Specific [place] 1.004 Urine Protein NEGATIVE Urine Glucose (UA) NEGATIVE Urine Ketones NEGATIVE Urine Blood NEGATIVE Urine Nitrite NEGATIVE Ur Leukocyte Esterase TRACE H Urine WBC (Auto) 1 Urine RBC (Auto) 1 12/25/19 12/25/19 12/25/19 13:39 13:39 14:17 WBC RBC Hgb Hct MCV MCH MCHC RDW Plt Count Seg Neutrophils % Sodium Potassium Chloride Carbon Dioxide Anion Gap BUN Creatinine Est GFR ( Amer) Glucose Serum Osmolality 242 L Lactic Acid 1.3 Calcium Total Bilirubin AST Alkaline Phosphatase Total Protein Albumin TSH 3.31 Urine Color Urine Appearance Urine pH Ur Specific [place] Urine Protein Urine Glucose (UA) Urine Ketones Urine Blood Urine Nitrite Ur Leukocyte Esterase Urine WBC (Auto) Urine RBC (Auto) 12/25/19 20:11 WBC RBC Hgb Hct MCV MCH MCHC RDW Plt Count Seg Neutrophils % Sodium 123.6 L Potassium 4.0 Chloride 92 L Carbon Dioxide 23 Anion Gap 9 BUN 10 Creatinine 0.90 Est GFR ( Amer) > 60 Glucose 134 H Serum Osmolality Lactic Acid Calcium 8.7 Total Bilirubin 0.5 AST 19 Alkaline Phosphatase 87 Total Protein 6.6 Albumin 3.9 TSH Urine Color Urine Appearance Urine pH Ur Specific [place] Urine Protein Urine Glucose (UA) Urine Ketones Urine Blood Urine Nitrite Ur Leukocyte Esterase Urine WBC (Auto) Urine RBC (Auto) 12/25/19 12/25/19 12/25/19 13:39 13:39 13:39 Creatine Kinase 176 H Cancelled Troponin I 0.068 Impressions: Chest X-Ray 12/25/19 13:54 IMPRESSION: Asymmetric opacities in the inferolateral aspect of the left hemithorax that could represent atelectasis or a pneumonia. Assessment & Plan - Diagnosis (1) Hyponatremia Is this a current diagnosis for this admission?: Yes Plan: Acute on chronic. The patient has got underlying schizophrenia and is on antipsychotics which is possibly responsible for these along with SIADH/compulsive polydipsia. His acute worsening of mental status could have been from hyponatremia and therefore immediate correction with bolus followed by continuous infusion has been ordered. Monitor. Prevent rapid correction of more than 8 mEq to prevent CPM. (2) Altered mental status Is this a current diagnosis for this admission?: Yes Plan: Background of schizophrenia with now acute on chronic hyponatremia as well as pneumonia possible sepsis. Plan to see how he responds to immediate correction of his low sodium with altered mental status which could have been possibly secondary to seizures. Rapid correction of the sodium was instituted followed by continuous infusion which I have ordered the ER nurses to initiate as after initial bolus no further 3% saline was flowing. Need to monitor. Structural changes inside the brain needs imaging studies but given the patient's combative state might be difficult. Reviewed to the hospital/ER physician. (3) Dehydration Plan: Plan normal saline adjacent to the 3% saline. Monitor. (4) Schizophrenia Qualifiers: Schizophrenia type: unspecified Qualified Code(s): F20.9 - Schizophrenia, unspecified Plan: As per hospitalist. Current worsening of mental status is multifactorial. However he would need certain element of antipsychotics/antiseizure medications while it is being worked out. (5) Seizure Is this a current diagnosis for this admission?: Yes Plan: Possible in the setting of acute on chronic hyponatremia. Antiseizure medications are being administered by Dr. Ramsey/hospitalist. (6) Hypertension Is this a current diagnosis for this admission?: No (7) Pneumonia Qualifiers: Pneumonia type: due to unspecified organism Laterality: left Lung location: lower lobe of lung Qualified Code(s): J18.9 - Pneumonia, unspecified organism Is this a current diagnosis for this admission?: Yes Plan: Could be atypical versus other causes/etiology including COVID. Recommend antibiotics to include those that will cover atypical organisms. I will also recommend testing him for COVID status.
[2019-12-25] MEDS ORDERED: PIPERACILLIN/TAZOBACTAM 3.375 GM VIAL IV SCH (22:00)
[2019-12-25 22:06] LABS: ALBUMIN 4.2 g/dL (3.5-5.0); ALKALINE PHOSPHATASE 97 U/L (38-126); ANION GAP 10 (5-19); ASPARTATE AMINO TRANSFERASE 22 U/L (17-59); BILIRUBIN,DIRECT 0.3 mg/dL (0.0-0.4); BILIRUBIN,TOTAL 0.7 mg/dL (0.2-1.3); BLOOD UREA NITROGEN 10 mg/dL (7-20); CALCIUM 9.1 mg/dL (8.4-10.2); CARBON DIOXIDE 22 mmol/L (22-30); CHLORIDE 93 mmol/L (98-107); GLUCOSE 123 mg/dL (75-110); POTASSIUM 4.1 mmol/L (3.6-5.0)
[2019-12-25] MEDS: VANCOMYCIN HCL 1,500 MG in DEXTROSE 5%-WATER 250 ML IV SCH (22:11)
[2019-12-25] MEDS: PANTOPRAZOLE SODIUM 40 MG VIAL IV SCH (22:12)
[2019-12-25] MEDS: HEPARIN SOD (PORCINE) 5,000 UNIT/ML 1 ML VIAL SUBCUT SCH (22:13)
[2019-12-25 22:53] LABS: ALBUMIN 3.9 g/dL (3.5-5.0); ALKALINE PHOSPHATASE 88 U/L (38-126); ANION GAP 9 (5-19); ASPARTATE AMINO TRANSFERASE 21 U/L (17-59); BILIRUBIN,DIRECT 0.4 mg/dL (0.0-0.4); BILIRUBIN,TOTAL 0.7 mg/dL (0.2-1.3); BLOOD UREA NITROGEN 10 mg/dL (7-20); CALCIUM 8.9 mg/dL (8.4-10.2); CARBON DIOXIDE 25 mmol/L (22-30); CHLORIDE 92 mmol/L (98-107); GLUCOSE 127 mg/dL (75-110); POTASSIUM 4.3 mmol/L (3.6-5.0); TOTAL PROTEIN 6.8 g/dL (6.3-8.2)
[2019-12-26] MEDS: PIPERACILLIN SODIUM/TAZOBACTAM 3.375 GM in NORMAL SALINE 100 ML IV SCH ×4 (00:36→17:55)
[2019-12-26] MEDS: NORMAL SALINE 1000 ML 1,000 ML IV PRN (01:13)
[2019-12-26] MEDS: HALOPERIDOL LACTATE INJ 5 MG/1 ML VIAL IV PRN ×4 (04:21→17:59)
[2019-12-26 04:45] LABS: URINE AMPHETAMINES SCREEN NEGATIVE; URINE BARBITURATES SCREEN NEGATIVE; URINE BENZODIAZEPINES SCREEN NEGATIVE; URINE COCAINE SCREEN NEGATIVE; URINE MARIJUANA (THC) SCREEN NEGATIVE; URINE METHADONE SCREEN NEGATIVE; URINE PHENCYCLIDINE SCREEN NEGATIVE
[2019-12-26 06:26] LABS: ABSOLUTE BASOPHILS # (AUTO) 0.2 10^3/uL (0.0-0.2); ABSOLUTE LYMPHOCYTES (AUTO) 1.7 10^3/uL (0.5-4.7); ABSOLUTE NEUT (AUTO) 9.6 10^3/uL (1.7-8.2); BASOPHILS % (AUTO) 1.3 % (0-2); EOSINOPHILS % (AUTO) 0.1 % (0-6); HEMATOCRIT 36.1 % (37.9-51.0); HEMOGLOBIN 12.7 g/dL (13.5-17.0); LYMPHOCYTES % (AUTO) 13.6 % (13-45); MEAN CORPUSCULAR HEMOGLOBIN 29.6 pg (27.0-33.4); MEAN CORPUSCULAR VOLUME 85 fl (80-97); MONOCYTES % (AUTO) 7.9 % (3-13); PLATELET COUNT 303 10^3/uL (150-450); RED BLOOD COUNT 4.27 10^6/uL (4.35-5.55); SEGMENTED NEUTROPHILS % (AUTO) 77.1 % (42-78); TOTAL CELLS COUNTED % (AUTO) 100 %; WHITE BLOOD COUNT 12.4 10^3/uL (4.0-10.5)
[2019-12-26 06:40] LABS: INTERNATIONAL RATION (INR) 1.03; PROTHROMBIN TIME 13.7 SEC (11.4-15.4)
[2019-12-26] MEDS: HEPARIN SOD (PORCINE) 5,000 UNIT/ML 1 ML VIAL SUBCUT SCH ×3 (06:44→21:33)
[2019-12-26] MEDS: PHENYTOIN SODIUM INJ/PF 100 MG/2 ML SDV IV SCH ×2 (06:45→17:55)
[2019-12-26 06:49] LABS: ALBUMIN 3.7 g/dL (3.5-5.0); ALKALINE PHOSPHATASE 84 U/L (38-126); ANION GAP 10 (5-19); ASPARTATE AMINO TRANSFERASE 21 U/L (17-59); BILIRUBIN,DIRECT 0.3 mg/dL (0.0-0.4); BILIRUBIN,TOTAL 0.8 mg/dL (0.2-1.3); BLOOD UREA NITROGEN 11 mg/dL (7-20); CALCIUM 8.9 mg/dL (8.4-10.2); CARBON DIOXIDE 21 mmol/L (22-30); CHLORIDE 95 mmol/L (98-107); CHOLESTEROL 118.34 mg/dL (0-200); GLUCOSE 101 mg/dL (75-110); POTASSIUM 4.2 mmol/L (3.6-5.0); TOTAL PROTEIN 6.4 g/dL (6.3-8.2); TRIGLYCERIDES 70 mg/dL (<150)
[2019-12-26 07:00] LABS: DIRECT LDL 43 mg/dL (<100)
[2019-12-26 07:03] LABS: TROPONIN I 0.096 ng/mL
[2019-12-26] MEDS: VANCOMYCIN HCL 1,500 MG in DEXTROSE 5%-WATER 250 ML IV SCH ×2 (09:51→21:29)
[2019-12-26] MEDS: LORAZEPAM INJ 2 MG/1 ML VIAL IV PRN ×2 (09:53→15:50)
[2019-12-26] MEDS: PANTOPRAZOLE SODIUM 40 MG VIAL IV SCH ×3 (09:53→21:33)
--- NOTE | 2019-12-26 09:59 | PDOC PROGRESS REPORT ---
Subjective Progress Note for:: 12/26/19 Subjective:: 59 year old male with history of schizophrenia, gastroparesis reflux disease, COPD, history of hyponatremia was brought to the emergency room after he was found leaning up to both ears after walking for [address] he was an escape from [facility] and was placed on missing person file. Work-up in the ER indicates pneumonia, hyponatremia with a serum sodium of 116.8. ER physician discussed the case with Dr. Webb and also with ICU electronic warfare technician Dr. Webb was to give 50 mL of 3% normal saline. But ICU attending thinks patient does need to be in ICU does not need to be in 3% normal saline. Dr. arredondo called me for admission. After discussion with Dr. Webb, I requested Dr. Arredondo to give 3% normal saline 50 cc over 1 and half hour. I went to see the patient and he told me patient has a seizure-like activity and is able to give a Keppra. Also found to have a short brief of V. tach in the emergency room. The nurses have a hard time keeping the IV line in and he pulled a couple of IV lines. He was given a Catemine and IV line was accessed and started on 3% normal saline. I am going to admit the patient to IMCU but I requested Dr. arredondo to keep the patient in the ER tonight until mental status and hyponatremia improves. He agreed. pt is unable to give any history. [id number]-old male admitted with hyponatremia questionable seizure activity in the ER brief episode of V. tach in the ER. Patient was given a loading dose of Dilantin 1 g now he is on IV Dilantin 100 mg twice a day. Serum sodium came up to 126 plan is to repeat the chemistry now. Psych consult was requested. Plan is to closely monitor the chemistry and mental status. Reason For Visit: HYPONATREMIA Physical Exam Vital Signs: Temp Pulse Resp BP Pulse Ox 98.2 F 90 16 150/97 H 97 12/26/19 08:00 12/26/19 08:00 12/26/19 08:00 12/26/19 08:00 12/26/19 08:00 Intake & Output 12/25/19 12/26/19 12/27/19 06:59 06:59 06:59 Intake Total 2193 Output Total 100 Balance 2093 Weight 81.5 kg General appearance: PRESENT: no acute distress, obese Head exam: PRESENT: atraumatic Eye exam: PRESENT: PERRLA Ear exam: PRESENT: normal external ear exam Mouth exam: PRESENT: dry mucosa Teeth exam: PRESENT: poor dentation Neck exam: ABSENT: carotid bruit, JVD, lymphadenopathy, thyromegaly Respiratory exam: PRESENT: decreased breath sounds Cardiovascular exam: PRESENT: RRR. ABSENT: diastolic murmur, rubs, systolic murmur GI/Abdominal exam: PRESENT: normal bowel sounds, soft. ABSENT: distended, guarding, mass, organolmegaly, rebound, tenderness Rectal exam: PRESENT: deferred Extremities exam: PRESENT: full ROM. ABSENT: calf tenderness, clubbing, pedal edema Neurological exam: PRESENT: alert, awake, CN II-XII grossly intact Results Laboratory Results: 12/26/19 05:40 12/26/19 05:40 12/25/19 12/25/19 12/25/19 13:39 13:39 13:39 WBC 14.8 H RBC 4.21 L Hgb 12.7 L Hct 35.7 L MCV 85 MCH 30.2 MCHC 35.6 RDW 14.9 H Plt Count 373 Seg Neutrophils % 87.1 H Sodium 116.8 L* Potassium 4.9 Chloride 86 L Carbon Dioxide 21 L Anion Gap 10 BUN 12 Creatinine 0.97 Est GFR ( Amer) > 60 Glucose 118 H Serum Osmolality Lactic Acid Calcium 8.9 Magnesium Total Bilirubin 0.6 AST 20 Alkaline Phosphatase 87 Total Protein 6.3 Albumin 3.9 Triglycerides Cholesterol LDL Cholesterol Direct VLDL Cholesterol HDL Cholesterol TSH Urine Color STRAW Urine Appearance CLEAR Urine pH 8.0 Ur Specific [place] 1.004 Urine Protein NEGATIVE Urine Glucose (UA) NEGATIVE Urine Ketones NEGATIVE Urine Blood NEGATIVE Urine Nitrite NEGATIVE Ur Leukocyte Esterase TRACE H Urine WBC (Auto) 1 Urine RBC (Auto) 1 Urine Osmolality 12/25/19 12/25/19 12/25/19 13:39 13:39 13:39 WBC RBC Hgb Hct MCV MCH MCHC RDW Plt Count Seg Neutrophils % Sodium Potassium Chloride Carbon Dioxide Anion Gap BUN Creatinine Est GFR ( Amer) Glucose Serum Osmolality 242 L Lactic Acid Calcium Magnesium Total Bilirubin AST Alkaline Phosphatase Total Protein Albumin Triglycerides Cholesterol LDL Cholesterol Direct VLDL Cholesterol HDL Cholesterol TSH 3.31 Urine Color Urine Appearance Urine pH Ur Specific [place] Urine Protein Urine Glucose (UA) Urine Ketones Urine Blood Urine Nitrite Ur Leukocyte Esterase Urine WBC (Auto) Urine RBC (Auto) Urine Osmolality 166 L 12/25/19 12/25/19 12/25/19 14:17 20:11 21:27 WBC RBC Hgb Hct MCV MCH MCHC RDW Plt Count Seg Neutrophils % Sodium 123.6 L 125.3 L Potassium 4.0 4.1 Chloride 92 L 93 L Carbon Dioxide 23 22 Anion Gap 9 10 BUN 10 10 Creatinine 0.90 0.88 Est GFR ( Amer) > 60 > 60 Glucose 134 H 123 H Serum Osmolality Lactic Acid 1.3 Calcium 8.7 9.1 Magnesium Total Bilirubin 0.5 0.7 AST 19 22 Alkaline Phosphatase 87 97 Total Protein 6.6 7.0 Albumin 3.9 4.2 Triglycerides Cholesterol LDL Cholesterol Direct VLDL Cholesterol HDL Cholesterol TSH Urine Color Urine Appearance Urine pH Ur Specific [place] Urine Protein Urine Glucose (UA) Urine Ketones Urine Blood Urine Nitrite Ur Leukocyte Esterase Urine WBC (Auto) Urine RBC (Auto) Urine Osmolality 12/25/19 12/26/19 12/26/19 22:00 05:40 05:40 WBC 12.4 H RBC 4.27 L Hgb 12.7 L Hct 36.1 L MCV 85 MCH 29.6 MCHC 35.0 RDW 15.0 H Plt Count 303 Seg Neutrophils % 77.1 Sodium 126.0 L 126.3 L Potassium 4.3 4.2 Chloride 92 L 95 L Carbon Dioxide 25 21 L Anion Gap 9 10 BUN 10 11 Creatinine 0.86 0.83 Est GFR ( Amer) > 60 > 60 Glucose 127 H 101 Serum Osmolality Lactic Acid Calcium 8.9 8.9 Magnesium 1.8 Total Bilirubin 0.7 0.8 AST 21 21 Alkaline Phosphatase 88 84 Total Protein 6.8 6.4 Albumin 3.9 3.7 Triglycerides 70 Cholesterol 118.34 LDL Cholesterol Direct 43 VLDL Cholesterol 14.0 HDL Cholesterol 64 TSH Urine Color Urine Appearance Urine pH Ur Specific [place] Urine Protein Urine Glucose (UA) Urine Ketones Urine Blood Urine Nitrite Ur Leukocyte Esterase Urine WBC (Auto) Urine RBC (Auto) Urine Osmolality 12/26/19 05:40 WBC RBC Hgb Hct MCV MCH MCHC RDW Plt Count Seg Neutrophils % Sodium Potassium Chloride Carbon Dioxide Anion Gap BUN Creatinine Est GFR ( Amer) Glucose Serum Osmolality Lactic Acid Calcium Magnesium Total Bilirubin AST Alkaline Phosphatase Total Protein Albumin Triglycerides Cholesterol LDL Cholesterol Direct VLDL Cholesterol HDL Cholesterol TSH 1.53 Urine Color Urine Appearance Urine pH Ur Specific [place] Urine Protein Urine Glucose (UA) Urine Ketones Urine Blood Urine Nitrite Ur Leukocyte Esterase Urine WBC (Auto) Urine RBC (Auto) Urine Osmolality 12/25/19 12/25/19 12/25/19 13:39 13:39 13:39 Creatine Kinase 176 H Cancelled Troponin I 0.068 NT-Pro-B Natriuret Pep 12/25/19 12/26/19 21:27 05:40 Creatine Kinase Troponin I 0.127 0.096 NT-Pro-B Natriuret Pep 818 H Impressions: Chest X-Ray 12/25/19 13:54 IMPRESSION: Asymmetric opacities in the inferolateral aspect of the left hemithorax that could represent atelectasis or a pneumonia. Assessment and Plan - Diagnosis (1) Hyponatremia Is this a current diagnosis for this admission?: Yes Plan: 12/25/2019-patient is going to be admitted to [facility] with a diagnosis of hyponatremia and seizure-like activity in the ER. Short brief of V. tach is noticed in the ER. In my opinion ICU is more appropriate. Patient is going to be given a Dilantin loading dose and continue Dilantin in IMCU. GI prophylaxis DVT prophylaxis initiated. Fall aspiration seizure precautions requested. To give hypertonic saline 50 cc over 1 and half hour time. To do the chemistry every 4 hours. Neurochecks will be requested every 4 hours. Patient condition is critical at this time. The goal is to bring the serum sodium to around 124 in the next [address] Jt Webb was requested. Serum osmolality urine osmolality is requested. 12/26/19-patient is more alert more awake this morning. Serum sodium is 126. Plan is to check the serum sodium every 4 hours. To watch for mental status changes. CT head was requested. To start him on regular diet. To watch for the seizure activity. Psych consult was requested for medication adjustments. (2) Pneumonia Qualifiers: Pneumonia type: due to unspecified organism Laterality: left Lung location: lower lobe of lung Qualified Code(s): J18.9 - Pneumonia, unspecified organism Is this a current diagnosis for this admission?: Yes Plan: 12/25/2019-chest x-ray suggestive of atelectasis versus pneumonia. To start him on IV Zosyn and vancomycin. Blood cultures are requested. To supplement oxygen 2 L via nasal cannula. There is a possibility of aspiration pneumonia because of change in mental status. 12/26/2019-patient admitted with pneumonia. There is a possibility of aspiration pneumonia. On vancomycin and Zosyn. Afebrile. WBC count is 12,400. Plan is to continue the present management at this time. (3) Hypertension Is this a current diagnosis for this admission?: No Plan: 12/25/2019-patient has history of hypertension hold p.o. medications at this time. To start on IV hydralazine 10 mg every 6 hours as needed for systolic blood pressure more than 170. 12/26/2019-blood pressure today is 143/90. Presently on IV hydralazine 10 mg every 6 hours as needed. (4) Altered mental status Is this a current diagnosis for this admission?: Yes Plan: 12/25/2019-patient found to be in acute metabolic encephalopathy. It may be secondary to hyponatremia. Patient is receiving 3% normal saline. To closely monitor the serum sodium levels every 4 hours. 12/26/2019-altered mental status is improving. (5) Seizure Is this a current diagnosis for this admission?: Yes Plan: 12/25/2019-patient found to have seizure-like activity in the ER to give a Dilantin loading dose. And to continue Dilantin 100 mg IV twice a day. Patient will be n.p.o. 12/26/19-patient has a seizure-like activity in the ER given a Dilantin loading dose and on IV Dilantin 100 mg twice a day. Plan is to continue the present management at this time. (6) Tobacco abuse Is this a current diagnosis for this admission?: No Plan: 12/25/2019-patient has history of tobacco abuse is a daily day smoker. To place him nicotine patch. - Time Anticipated Discharge Disposition: Home, Self Care Anticipated Discharge Timeframe: within 72 hours
[2019-12-26] MEDS ORDERED: VANCOMYCIN HCL INJ 1000 MG VIAL IV SCH (10:00)
[2019-12-26] MEDS ORDERED: MAG HYDROX/AL HYDROX/SIMETH SUSP 30 ML UDCUP ONE (10:01)
[2019-12-26] MEDS: NICOTINE 21 MG/24 HR PATCH.TD24 TD SCH (10:20)
--- NOTE | 2019-12-26 11:17 | PDOC PROGRESS REPORT ---
Subjective Progress Note for:: 12/26/19 Reason For Visit: Patient was seen on the floor today. He is more awake and responsive but rather confused and and rather agitated and combative. Discussions were done with the treating nurse as patient does not answer appropriately to ones questions. Labs and medications were reviewed. His sodium is 126 which is come up very nicely. He is also getting gentle hydration with normal saline while the 3% has been discontinued. His labs reflect she is almost close to his baseline. Physical Exam Vital Signs: Temp Pulse Resp BP Pulse Ox 98.2 F 90 16 150/97 H 97 12/26/19 08:00 12/26/19 08:00 12/26/19 08:00 12/26/19 08:00 12/26/19 08:00 Intake & Output 12/25/19 12/26/19 12/27/19 06:59 06:59 06:59 Intake Total 2193 250 Output Total 100 Balance 2093 250 Weight 81.5 kg General appearance: PRESENT: no acute distress Respiratory exam: PRESENT: clear to auscultation alan, decreased breath sounds. ABSENT: crackles Cardiovascular exam: PRESENT: +S1, +S2 GI/Abdominal exam: PRESENT: normal bowel sounds, soft. ABSENT: organomegaly, tenderness Extremities exam: ABSENT: pedal edema Neurological exam: PRESENT: awake Results Laboratory Results: 12/26/19 05:40 12/26/19 05:40 12/25/19 12/25/19 12/25/19 13:39 13:39 13:39 WBC 14.8 H RBC 4.21 L Hgb 12.7 L Hct 35.7 L MCV 85 MCH 30.2 MCHC 35.6 RDW 14.9 H Plt Count 373 Seg Neutrophils % 87.1 H Sodium 116.8 L* Potassium 4.9 Chloride 86 L Carbon Dioxide 21 L Anion Gap 10 BUN 12 Creatinine 0.97 Est GFR ( Amer) > 60 Glucose 118 H Serum Osmolality Lactic Acid Calcium 8.9 Magnesium Total Bilirubin 0.6 AST 20 Alkaline Phosphatase 87 Total Protein 6.3 Albumin 3.9 Triglycerides Cholesterol LDL Cholesterol Direct VLDL Cholesterol HDL Cholesterol TSH Urine Color STRAW Urine Appearance CLEAR Urine pH 8.0 Ur Specific [place] 1.004 Urine Protein NEGATIVE Urine Glucose (UA) NEGATIVE Urine Ketones NEGATIVE Urine Blood NEGATIVE Urine Nitrite NEGATIVE Ur Leukocyte Esterase TRACE H Urine WBC (Auto) 1 Urine RBC (Auto) 1 Urine Osmolality 12/25/19 12/25/19 12/25/19 13:39 13:39 13:39 WBC RBC Hgb Hct MCV MCH MCHC RDW Plt Count Seg Neutrophils % Sodium Potassium Chloride Carbon Dioxide Anion Gap BUN Creatinine Est GFR ( Amer) Glucose Serum Osmolality 242 L Lactic Acid Calcium Magnesium Total Bilirubin AST Alkaline Phosphatase Total Protein Albumin Triglycerides Cholesterol LDL Cholesterol Direct VLDL Cholesterol HDL Cholesterol TSH 3.31 Urine Color Urine Appearance Urine pH Ur Specific [place] Urine Protein Urine Glucose (UA) Urine Ketones Urine Blood Urine Nitrite Ur Leukocyte Esterase Urine WBC (Auto) Urine RBC (Auto) Urine Osmolality 166 L 12/25/19 12/25/19 12/25/19 14:17 20:11 21:27 WBC RBC Hgb Hct MCV MCH MCHC RDW Plt Count Seg Neutrophils % Sodium 123.6 L 125.3 L Potassium 4.0 4.1 Chloride 92 L 93 L Carbon Dioxide 23 22 Anion Gap 9 10 BUN 10 10 Creatinine 0.90 0.88 Est GFR ( Amer) > 60 > 60 Glucose 134 H 123 H Serum Osmolality Lactic Acid 1.3 Calcium 8.7 9.1 Magnesium Total Bilirubin 0.5 0.7 AST 19 22 Alkaline Phosphatase 87 97 Total Protein 6.6 7.0 Albumin 3.9 4.2 Triglycerides Cholesterol LDL Cholesterol Direct VLDL Cholesterol HDL Cholesterol TSH Urine Color Urine Appearance Urine pH Ur Specific [place] Urine Protein Urine Glucose (UA) Urine Ketones Urine Blood Urine Nitrite Ur Leukocyte Esterase Urine WBC (Auto) Urine RBC (Auto) Urine Osmolality 12/25/19 12/26/19 12/26/19 22:00 05:40 05:40 WBC 12.4 H RBC 4.27 L Hgb 12.7 L Hct 36.1 L MCV 85 MCH 29.6 MCHC 35.0 RDW 15.0 H Plt Count 303 Seg Neutrophils % 77.1 Sodium 126.0 L 126.3 L Potassium 4.3 4.2 Chloride 92 L 95 L Carbon Dioxide 25 21 L Anion Gap 9 10 BUN 10 11 Creatinine 0.86 0.83 Est GFR ( Amer) > 60 > 60 Glucose 127 H 101 Serum Osmolality Lactic Acid Calcium 8.9 8.9 Magnesium 1.8 Total Bilirubin 0.7 0.8 AST 21 21 Alkaline Phosphatase 88 84 Total Protein 6.8 6.4 Albumin 3.9 3.7 Triglycerides 70 Cholesterol 118.34 LDL Cholesterol Direct 43 VLDL Cholesterol 14.0 HDL Cholesterol 64 TSH Urine Color Urine Appearance Urine pH Ur Specific [place] Urine Protein Urine Glucose (UA) Urine Ketones Urine Blood Urine Nitrite Ur Leukocyte Esterase Urine WBC (Auto) Urine RBC (Auto) Urine Osmolality 12/26/19 12/26/19 05:40 05:40 WBC RBC Hgb Hct MCV MCH MCHC RDW Plt Count Seg Neutrophils % Sodium Potassium Chloride Carbon Dioxide Anion Gap BUN Creatinine Est GFR ( Amer) Glucose Serum Osmolality 255 L Lactic Acid Calcium Magnesium Total Bilirubin AST Alkaline Phosphatase Total Protein Albumin Triglycerides Cholesterol LDL Cholesterol Direct VLDL Cholesterol HDL Cholesterol TSH 1.53 Urine Color Urine Appearance Urine pH Ur Specific [place] Urine Protein Urine Glucose (UA) Urine Ketones Urine Blood Urine Nitrite Ur Leukocyte Esterase Urine WBC (Auto) Urine RBC (Auto) Urine Osmolality 12/25/19 12/25/19 12/25/19 13:39 13:39 13:39 Creatine Kinase 176 H Cancelled Troponin I 0.068 NT-Pro-B Natriuret Pep 12/25/19 12/26/19 21:27 05:40 Creatine Kinase Troponin I 0.127 0.096 NT-Pro-B Natriuret Pep 818 H Impressions: Chest X-Ray 12/25/19 13:54 IMPRESSION: Asymmetric opacities in the inferolateral aspect of the left hemithorax that could represent atelectasis or a pneumonia. Assessment & Plan - Diagnosis (1) Hyponatremia Is this a current diagnosis for this admission?: Yes Plan: Current sodium is 126/116 on admission. Is close to baseline. He is off the 3%. I would continue on gentle hydration with normal saline as his hyponatremia is multifactorial. Unfortunately certain labs to diagnose SIADH has not yet been collected for obvious reasons. (2) Altered mental status Is this a current diagnosis for this admission?: Yes Plan: Background of schizophrenia with now acute on chronic hyponatremia/ pneumonia possible sepsis/possible seizures. Overall his mental status is improved compared to yesterday. I would continue on current guidelines. Structural changes inside the brain needs imaging studies but given the patient's combative state might be difficult. (3) Dehydration Plan: Plan normal saline . Monitor. (4) Schizophrenia Qualifiers: Schizophrenia type: unspecified Qualified Code(s): F20.9 - Schizophrenia, unspecified Plan: As per hospitalist. Current worsening of mental status is multifactorial. However he would need certain element of antipsychotics/antiseizure medications while it is being worked out. (5) Seizure Is this a current diagnosis for this admission?: Yes Plan: Possible in the setting of acute on chronic hyponatremia. Antiseizure medications are being administered by Dr. Ramsey/hospitalist. (6) Hypertension Is this a current diagnosis for this admission?: No Plan: Stable. Monitor. (7) Pneumonia Qualifiers: Pneumonia type: due to unspecified organism Laterality: left Lung location: lower lobe of lung Qualified Code(s): J18.9 - Pneumonia, unspecified organism Is this a current diagnosis for this admission?: Yes Plan: Could be atypical versus other causes/etiology including COVID. Recommend antibiotics to include those that will cover atypical organisms. I will also recommend testing him for COVID status.
[2019-12-26 13:26] LABS: OSMOLALITY,URINE 269 mOsm/kg (300-900)
[2019-12-26 13:30] LABS: URINE SODIUM 80 mmol/L (30-90)
[2019-12-26] MEDS ORDERED: ZIPRASIDONE MESYLATE INJ/PF 20 MG SDV IM ONE (17:30)
[2019-12-26] MEDS ORDERED: GUAIFENESIN SYRP 200 MG/10 ML UDC PO PRN (22:17)
[2019-12-27] MEDS: PIPERACILLIN SODIUM/TAZOBACTAM 3.375 GM in NORMAL SALINE 100 ML IV SCH ×4 (00:03→17:26)
[2019-12-27] MEDS: HALOPERIDOL LACTATE INJ 5 MG/1 ML VIAL IV PRN ×3 (05:05→17:26)
[2019-12-27] MEDS: HEPARIN SOD (PORCINE) 5,000 UNIT/ML 1 ML VIAL SUBCUT SCH ×3 (05:18→22:42)
[2019-12-27] MEDS: PHENYTOIN SODIUM INJ/PF 100 MG/2 ML SDV IV SCH (05:21)
[2019-12-27] MEDS: LORAZEPAM INJ 2 MG/1 ML VIAL IV PRN ×3 (07:52→20:47)
[2019-12-27 10:04] LABS: ABSOLUTE BASOPHILS # (AUTO) 0.1 10^3/uL (0.0-0.2); ABSOLUTE EOSINOPHILS # (AUTO) 0.1 10^3/uL (0.0-0.6); ABSOLUTE LYMPHOCYTES (AUTO) 1.6 10^3/uL (0.5-4.7); ABSOLUTE MONOCYTES (AUTO) 0.8 10^3/uL (0.1-1.4); ABSOLUTE NEUT (AUTO) 9.2 10^3/uL (1.7-8.2); BASOPHILS % (AUTO) 1.2 % (0-2); EOSINOPHILS % (AUTO) 0.5 % (0-6); HEMATOCRIT 36.2 % (37.9-51.0); HEMOGLOBIN 12.6 g/dL (13.5-17.0); LYMPHOCYTES % (AUTO) 13.2 % (13-45); MEAN CORPUSCULAR HEMOGLOBIN 29.7 pg (27.0-33.4); MEAN CORPUSCULAR HGB CONC 34.7 g/dL (32.0-36.0); MEAN CORPUSCULAR VOLUME 86 fl (80-97); MONOCYTES % (AUTO) 6.7 % (3-13); PLATELET COUNT 303 10^3/uL (150-450); RED BLOOD COUNT 4.23 10^6/uL (4.35-5.55); RED CELL DISTRIBUTION WIDTH 15.2 % (11.5-14.0); SEGMENTED NEUTROPHILS % (AUTO) 78.4 % (42-78); TOTAL CELLS COUNTED % (AUTO) 100 %; WHITE BLOOD COUNT 11.8 10^3/uL (4.0-10.5)
[2019-12-27 10:33] LABS: ALBUMIN 3.5 g/dL (3.5-5.0); ALKALINE PHOSPHATASE 70 U/L (38-126); ANION GAP 10 (5-19); ASPARTATE AMINO TRANSFERASE 17 U/L (17-59); BILIRUBIN,DIRECT 0.2 mg/dL (0.0-0.4); BILIRUBIN,TOTAL 0.5 mg/dL (0.2-1.3); BLOOD UREA NITROGEN 10 mg/dL (7-20); CALCIUM 8.7 mg/dL (8.4-10.2); CARBON DIOXIDE 22 mmol/L (22-30); CHLORIDE 93 mmol/L (98-107); GLUCOSE 107 mg/dL (75-110); POTASSIUM 4.3 mmol/L (3.6-5.0)
[2019-12-27 10:35] LABS: VANCOMYCIN,TROUGH 15.6 ug/mL (5.0-20.0)
--- NOTE | 2019-12-27 10:43 | PDOC PROGRESS REPORT ---
Subjective Progress Note for:: 12/27/19 Subjective:: 59 year old male with history of schizophrenia, gastroparesis reflux disease, COPD, history of hyponatremia was brought to the emergency room after he was found leaning up to both ears after walking for [address] he was an escape from [facility] and was placed on missing person file. Work-up in the ER indicates pneumonia, hyponatremia with a serum sodium of 116.8. ER physician discussed the case with Dr. Webb and also with ICU clinical nurse leader Dr. Webb was to give 50 mL of 3% normal saline. But ICU attending thinks patient does need to be in ICU does not need to be in 3% normal saline. Dr. arredondo called me for admission. After discussion with Dr. Webb, I requested Dr. Arredondo to give 3% normal saline 50 cc over 1 and half hour. I went to see the patient and he told me patient has a seizure-like activity and is able to give a Keppra. Also found to have a short brief of V. tach in the emergency room. The nurses have a hard time keeping the IV line in and he pulled a couple of IV lines. He was given a Catemine and IV line was accessed and started on 3% normal saline. I am going to admit the patient to IMCU but I requested Dr. arredondo to keep the patient in the ER tonight until mental status and hyponatremia improves. He agreed. pt is unable to give any history. 12/[id number]-old male admitted with hyponatremia questionable seizure activity in the ER brief episode of V. tach in the ER. Patient was given a loading dose of Dilantin 1 g now he is on IV Dilantin 100 mg twice a day. Serum sodium came up to 126 plan is to repeat the chemistry now. Psych consult was requested. Plan is to closely monitor the chemistry and mental status. 12/27/2019-patient admitted with hyponatremia of 116 improved to 126. Today's labs are pending. Possible seizure in the ER and he was given Dilantin loading dose and presently on Dilantin 100 mg p.o. twice a day. Plan is to discontinue IV Dilantin because no seizure activity was noticed in the last 24 hours. Patient is combative agitated and belligerent to give Geodon 20 mg IM. Psych consult was requested. Patient may need to go to inpatient rehab once medically cleared. Reason For Visit: HYPONATREMIA Physical Exam Vital Signs: Temp Pulse Resp BP Pulse Ox 98.2 F 81 16 142/110 H 94 12/27/19 08:53 12/27/19 07:00 12/27/19 03:51 12/27/19 06:00 12/27/19 03:51 Intake & Output 12/26/19 12/27/19 12/28/19 06:59 06:59 06:59 Intake Total 2193 2740 Output Total 100 800 Balance 2093 1940 Weight 81.5 kg 82.9 kg General appearance: PRESENT: no acute distress, well-developed Head exam: PRESENT: atraumatic Eye exam: PRESENT: PERRLA Mouth exam: PRESENT: moist, tongue midline Teeth exam: PRESENT: poor dentation Neck exam: ABSENT: carotid bruit, JVD, lymphadenopathy, thyromegaly Respiratory exam: PRESENT: decreased breath sounds Cardiovascular exam: PRESENT: RRR. ABSENT: diastolic murmur, rubs, systolic murmur GI/Abdominal exam: PRESENT: normal bowel sounds, soft. ABSENT: distended, guarding, mass, organolmegaly, rebound, tenderness Rectal exam: PRESENT: deferred Extremities exam: PRESENT: full ROM. ABSENT: calf tenderness, clubbing, pedal edema Neurological exam: PRESENT: alert, awake, oriented to person, oriented to place, oriented to time, oriented to situation, CN II-XII grossly intact. ABSENT: motor sensory deficit Results Laboratory Results: 12/27/19 09:35 12/26/19 12/26/19 12/27/19 05:40 12:15 09:35 WBC 11.8 H RBC 4.23 L Hgb 12.6 L Hct 36.2 L MCV 86 MCH 29.7 MCHC 34.7 RDW 15.2 H Plt Count 303 Seg Neutrophils % 78.4 H Serum Osmolality 255 L Urine Osmolality 269 L 12/25/19 12/25/19 12/25/19 13:39 13:39 13:39 Creatine Kinase 176 H Cancelled Troponin I 0.068 NT-Pro-B Natriuret Pep 12/25/19 12/26/19 21:27 05:40 Creatine Kinase Troponin I 0.127 0.096 NT-Pro-B Natriuret Pep 818 H Impressions: Chest X-Ray 12/25/19 13:54 IMPRESSION: Asymmetric opacities in the inferolateral aspect of the left hemithorax that could represent atelectasis or a pneumonia. Assessment and Plan - Diagnosis (1) Hyponatremia Is this a current diagnosis for this admission?: Yes Plan: 12/25/2019-patient is going to be admitted to [facility] with a diagnosis of hyponatremia and seizure-like activity in the ER. Short brief of V. tach is noticed in the ER. In my opinion ICU is more appropriate. Patient is going to be given a Dilantin loading dose and continue Dilantin in IMCU. GI prophylaxis DVT prophylaxis initiated. Fall aspiration seizure precautions requested. To give hypertonic saline 50 cc over 1 and half hour time. To do the chemistry every 4 hours. Neurochecks will be requested every 4 hours. Patient condition is criti delilah at this time. The goal is to bring the serum sodium to around 124 in the next [address] Jt Webb was requested. Serum osmolality urine osmolality is requested. 12/26/19-patient is more alert more awake this morning. Serum sodium is 126. Plan is to check the serum sodium every 4 hours. To watch for mental status changes. CT head was requested. To start him on regular diet. To watch for the seizure activity. Psych consult was requested for medication adjustments. 12/27/19-latest serum sodium is 126. Plan is to repeat the labs today and labs are pending at this time. Nephrology on board. pLan is to continue to closely monitor the labs on regular basis. (2) Pneumonia Qualifiers: Pneumonia type: due to unspecified organism Laterality: left Lung location: lower lobe of lung Qualified Code(s): J18.9 - Pneumonia, unspecified organism Is this a current diagnosis for this admission?: Yes Plan: 12/25/2019-chest x-ray suggestive of atelectasis versus pneumonia. To start him on IV Zosyn and vancomycin. Blood cultures are requested. To supplement oxygen 2 L via nasal cannula. There is a possibility of aspiration pneumonia because of change in mental status. 12/26/2019-patient admitted with pneumonia. There is a possibility of aspiration pneumonia. On vancomycin and Zosyn. Afebrile. WBC count is 12,400. Plan is to continue the present management at this time. 12/27/2019-blood cultures are positive for gram-positive cocci in clusters chest x-ray suggestive of pneumonia. To continue IV Zosyn and vancomycin at this time. (3) Hypertension Is this a current diagnosis for this admission?: No Plan: 12/25/2019-patient has history of hypertension hold p.o. medications at this time. To start on IV hydralazine 10 mg every 6 hours as needed for systolic blood pressure more than 170. 12/26/2019-blood pressure today is 143/90. Presently on IV hydralazine 10 mg every 6 hours as needed. 12/27/2019-blood pressure today is 140/100. Plan is to continue the present management at this time. (4) Altered mental status Is this a current diagnosis for this admission?: Yes Plan: 12/25/2019-patient found to be in acute metabolic encephalopathy. It may be secondary to hyponatremia. Patient is receiving 3% normal saline. To closely monitor the serum sodium levels every 4 hours. 12/26/2019-altered mental status is improving. (5) Seizure Is this a current diagnosis for this admission?: Yes Plan: 12/25/2019-patient found to have seizure-like activity in the ER to give a Dilantin loading dose. And to continue Dilantin 100 mg IV twice a day. Patient will be n.p.o. 12/26/19-patient has a seizure-like activity in the ER given a Dilantin loading dose and on IV Dilantin 100 mg twice a day. Plan is to continue the present management at this time. 12/27/2019-no seizure activity was noted for for more than 48 hours to discontinue IV Dilantin at this time. (6) Tobacco abuse Is this a current diagnosis for this admission?: No - Time Anticipated Discharge Disposition: Psych Hospital/Unit Anticipated Discharge Timeframe: within 72 hours
[2019-12-27] MEDS ORDERED: ZIPRASIDONE MESYLATE INJ/PF 20 MG SDV IM ONE (11:15)
[2019-12-27] MEDS: VANCOMYCIN HCL 1,500 MG in DEXTROSE 5%-WATER 250 ML IV SCH ×2 (12:20→22:52)
[2019-12-27] MEDS: NICOTINE 21 MG/24 HR PATCH.TD24 TD SCH (12:21)
[2019-12-27] MEDS: PANTOPRAZOLE SODIUM 40 MG VIAL IV SCH (12:41)
[2019-12-27 19:47] LABS: ALBUMIN 3.6 g/dL (3.5-5.0); ALKALINE PHOSPHATASE 74 U/L (38-126); ANION GAP 8 (5-19); ASPARTATE AMINO TRANSFERASE 14 U/L (17-59); BILIRUBIN,DIRECT 0.3 mg/dL (0.0-0.4); BILIRUBIN,TOTAL 0.4 mg/dL (0.2-1.3); BLOOD UREA NITROGEN 10 mg/dL (7-20); CALCIUM 8.5 mg/dL (8.4-10.2); CARBON DIOXIDE 24 mmol/L (22-30); CHLORIDE 96 mmol/L (98-107); GLUCOSE 101 mg/dL (75-110); POTASSIUM 4.2 mmol/L (3.6-5.0); TOTAL PROTEIN 5.9 g/dL (6.3-8.2)
--- NOTE | 2019-12-27 23:02 | PDOC PROGRESS REPORT ---
Subjective Progress Note for:: 12/27/19 Subjective:: Patient was admitted with severe hyponatremia of 116.8 associated with altered mental status and a possible seizure-like activity requiring 3% of normal saline. Initial urine osmolality was 166 improving to 269 with urine sodium of 80 after 3% of normal saline. Sodium improved to 126 yesterday. Repeat sodium this morning was 124.9. He was started on Dilantin. He is also being treated for possible pneumonia. Today the patient's sodium went down slightly to 124.9. This morning he was noted to be agitated and belligerent. When I entered his room he was fixing his bed and seems to be calm. He tells me that he is feeling okay and has no complaints. He appears to be at his baseline mental status based from what I remember from him when I last saw him during his last admission for hyponatremia as well. When asked about his fluid intake he tells me that he is drinking a cup of water, couple of cans of Pepsi and a cup of coffee daily. From what I remember this patient last admission, he has compulsive water drinking behavior including drinking from faucets any fluids he could get his hands on. Reason For Visit: HYPONATREMIA Physical Exam Vital Signs: Temp Pulse Resp BP Pulse Ox 98.2 F 81 16 142/110 H 94 12/27/19 08:53 12/27/19 07:00 12/27/19 03:51 12/27/19 06:00 12/27/19 03:51 Intake & Output 12/26/19 12/27/19 12/28/19 06:59 06:59 06:59 Intake Total 2193 2740 Output Total 100 800 Balance 20920 Weight 81.5 kg 82.9 kg Exam: General appearance: [PRESENT: no acute distress, cooperative, well-developed, well-nourished] Head exam: [PRESENT: atraumatic, normocephalic] Eye exam: [PRESENT: conjunctiva pink, PERRLA. ABSENT: scleral icterus] Neck exam: [ABSENT: JVD] Respiratory exam: [PRESENT: Normal breath sounds. ABSENT: crackles, rales, rhonchi, unlabored, wheezes] Cardiovascular exam: [PRESENT: Regular rate rhythm -+S1, +S2. ABSENT: diastolic murmur, systolic murmur] GI/Abdominal exam: [PRESENT: normal bowel sounds, soft. ABSENT: guarding, mass, tenderness] Extremities exam: [ABSENT: No edema] Neurological exam: [PRESENT: alert, awake, currently calm and answering minimal questions] Skin exam: [PRESENT: dry, warm,] Cardiovascular exam: PRESENT: +S1, +S2 GI/Abdominal exam: PRESENT: normal bowel sounds, soft. ABSENT: organomegaly, tenderness Results Laboratory Results: 12/27/19 09:35 12/27/19 09:35 12/26/19 12/27/19 12/27/19 12:15 09:35 09:35 WBC 11.8 H RBC 4.23 L Hgb 12.6 L Hct 36.2 L MCV 86 MCH 29.7 MCHC 34.7 RDW 15.2 H Plt Count 303 Seg Neutrophils % 78.4 H Sodium 124.9 L Potassium 4.3 Chloride 93 L Carbon Dioxide 22 Anion Gap 10 BUN 10 Creatinine 1.08 Est GFR ( Amer) > 60 Glucose 107 Calcium 8.7 Magnesium 1.7 Total Bilirubin 0.5 AST 17 Alkaline Phosphatase 70 Total Protein 6.0 L Albumin 3.5 Urine Osmolality 269 L 12/25/19 12/25/19 12/25/19 13:39 13:39 13:39 Creatine Kinase 176 H Cancelled Troponin I 0.068 NT-Pro-B Natriuret Pep 12/25/19 12/26/19 21:27 05:40 Creatine Kinase Troponin I 0.127 0.096 NT-Pro-B Natriuret Pep 818 H Impressions: Chest X-Ray 12/25/19 13:54 IMPRESSION: Asymmetric opacities in the inferolateral aspect of the left hemithorax that could represent atelectasis or a pneumonia. Assessment & Plan - Diagnosis (1) Hyponatremia syndrome Is this a current diagnosis for this admission?: Yes Plan: Patient has chronic hyponatremia secondary to known baseline psychogenic po lydipsia in the background of schizophrenia. Admitting sodium level was 116.8 currently at 124.9. Patient was given 3% of normal saline on admission. We need to do strict water restriction this patient. I talked to his nurse today to make sure that he complies with water restriction of 750 mL daily. Monitor sodium level. (2) Seizure Is this a current diagnosis for this admission?: Yes Plan: Patient was started on Dilantin due to possible seizure-like activity upon admission. Defer management to hospitalist service. (3) Schizophrenia Qualifiers: Schizophrenia type: unspecified Qualified Code(s): F20.9 - Schizophrenia, unspecified Is this a current diagnosis for this admission?: Yes Plan: Agree with psychiatry consult. (4) Pneumonia Qualifiers: Pneumonia type: due to unspecified organism Laterality: left Lung location: lower lobe of lung Qualified Code(s): J18.9 - Pneumonia, unspecified organism Is this a current diagnosis for this admission?: Yes Plan: Chest x-ray showed inferior lateral opacities possibly pneumonia versus atelectasis. Currently on IV Zosyn and vancomycin. (5) Altered mental status Is this a current diagnosis for this admission?: Yes Plan: Resolved. I think the patient is on his baseline mental status at this time. (6) Hypertension Is this a current diagnosis for this admission?: Yes Plan: Blood pressure likely to be affected by patient's episodic agitation with baseline schizophrenia. If it persists, he probably would need some antihy pertensive. - Time Time with patient: 15-25 minutes
--- NOTE | 2019-12-27 23:11 | CDI QUERY ---
CDI Query CDI Review: We are seeking further clarification of documentation to reflect the severity of illness of your patient. WBC 14.8 Chest X-Ray 12/25/19 13:54 IMPRESSION: Asymmetric opacities in the inferolateral aspect of the left hemithorax that could represent atelectasis or a pneumonia. Per Progress Notes: Pneumonia Qualifiers: Pneumonia type: due to unspecified organism Laterality: left Lung location: lower lobe of lung Qualified Code(s): J18.9 - Pneumonia, unspecified organism Is this a current diagnosis for this admission?: Yes 12/25/2019-chest x-ray suggestive of atelectasis versus pneumonia. To start him on IV Zosyn and vancomycin. Blood cultures are requested. To supplement oxygen 2 L via nasal cannula. There is a possibility of aspiration pneumonia because of change in mental status. 12/26/2019-patient admitted with pneumonia. There is a possibility of aspiration pneumonia. On vancomycin and Zosyn. Afebrile. WBC count is 12,400. Plan is to continue the present management at this time. 12/27/2019-blood cultures are positive for gram-positive cocci in clusters chest x-ray suggestive of pneumonia. To continue IV Zosyn and vancomycin at this time. Based on your medical judgement, can you further clarify in the Progress Notes: Aspiration pneumonia Aspiration pneumonia ruled out Unable to determine Other Thank you for your consideration. DANYEL ReedN RN [employer] Supervisor Physician Advisor [email or web address]
[2019-12-27] MEDS: NORMAL SALINE 1000 ML 1,000 ML IV PRN (23:57)
[2019-12-28] MEDS: LORAZEPAM INJ 2 MG/1 ML VIAL IV PRN ×3 (00:06→22:47)
[2019-12-28] MEDS: PIPERACILLIN SODIUM/TAZOBACTAM 3.375 GM in NORMAL SALINE 100 ML IV SCH ×5 (01:53→23:50)
[2019-12-28] MEDS: HEPARIN SOD (PORCINE) 5,000 UNIT/ML 1 ML VIAL SUBCUT SCH ×3 (04:59→23:52)
[2019-12-28] MEDS: PANTOPRAZOLE SODIUM 20 MG TABLET.DR PO SCH (05:17)
[2019-12-28] MEDS ORDERED: (PENDING PHARMACY ID) (Diltiazem Hcl [Diltiazem 24hr Er] 240 MG) PO SCH (10:00)
[2019-12-28 10:09] LABS: HEMATOCRIT 37.8 % (37.9-51.0); MEAN CORPUSCULAR HEMOGLOBIN 29.6 pg (27.0-33.4); MEAN CORPUSCULAR HGB CONC 34.5 g/dL (32.0-36.0); MEAN CORPUSCULAR VOLUME 86 fl (80-97); PLATELET COUNT 316 10^3/uL (150-450); RED CELL DISTRIBUTION WIDTH 15.2 % (11.5-14.0); WHITE BLOOD COUNT 13.5 10^3/uL (4.0-10.5)
[2019-12-28 10:26] LABS: ANION GAP 9 (5-19); BLOOD UREA NITROGEN 8 mg/dL (7-20); CARBON DIOXIDE 25 mmol/L (22-30); CHLORIDE 96 mmol/L (98-107); GLUCOSE 99 mg/dL (75-110); POTASSIUM 3.9 mmol/L (3.6-5.0)
[2019-12-28] MEDS: DILTIAZEM HCL 240 MG CAPSULE.CR PO SCH (11:19)
[2019-12-28] MEDS: NICOTINE 21 MG/24 HR PATCH.TD24 TD SCH (11:20)
[2019-12-28] MEDS: VANCOMYCIN HCL 1,500 MG in DEXTROSE 5%-WATER 250 ML IV SCH (11:20)
[2019-12-28] MEDS: HYDRALAZINE HCL 10 MG TABLET PO SCH ×2 (11:20→17:53)
[2019-12-28] MEDS: FLUTICASONE/VILANTEROL 200-25 MCG/DOSE IH SCH (11:21)
--- NOTE | 2019-12-28 15:54 | PDOC PROGRESS REPORT ---
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 Patient was seen on morning rounds. He is found resting bed, comfortably, on r oom air. He remains in four-point restraints becomes very agitated and aggressive with nursing staff. The patient denies say hello to me and answers his name appropriately but then he closes his eyes and turns his head away from me and refuses to answer any further questions. He does appear to be comfortable and is not noted to be in any acute distress at this time. ROS is otherwise limited. No concerns per nursing. Reason For Visit: HYPONATREMIA Physical Exam Vital Signs: Temp Pulse Resp BP Pulse Ox 97.4 F 82 20 183/108 H 96 12/28/19 10:00 12/28/19 08:22 12/28/19 08:22 12/28/19 08:22 12/28/19 08:22 Intake & Output 12/27/19 12/28/19 12/29/19 06:59 06:59 06:59 Intake Total 2740 2937 1154 Output Total 800 330 Balance 1940 2607 1154 Weight 82.9 kg 84 kg General appearance: PRESENT: no acute distress, disheveled, well-developed, well-nourished. ABSENT: cooperative Head exam: PRESENT: atraumatic, normocephalic Eye exam: PRESENT: conjunctiva pink, EOMI, PERRLA. ABSENT: scleral icterus Mouth exam: PRESENT: moist, tongue midline Teeth exam: PRESENT: poor dentation Respiratory exam: PRESENT: clear to auscultation alan, symmetrical, unlabored. ABSENT: rales, rhonchi, wheezes Cardiovascular exam: PRESENT: RRR. ABSENT: diastolic murmur, rubs, systolic murmur Pulses: PRESENT: normal dorsalis pedis pul Vascular exam: PRESENT: normal capillary refill GI/Abdominal exam: PRESENT: normal bowel sounds, soft. ABSENT: distended, guarding, mass, organolmegaly, rebound, tenderness Rectal exam: PRESENT: deferred Extremities exam: PRESENT: full ROM - Moves all extremities spontaneously. ABSENT: calf tenderness, clubbing, pedal edema Neurological exam: PRESENT: alert, awake, oriented to person, oriented to situation, CN II-XII grossly intact. ABSENT: motor sensory deficit Psychiatric exam: PRESENT: agitated - Combative, normal mood. ABSENT: homicidal ideation, suicidal ideation Skin exam: PRESENT: dry, intact, warm. ABSENT: cyanosis, rash Results Laboratory Results: 12/28/19 09:08 12/28/19 09:08 12/27/19 12/28/19 12/28/19 19:10 09:08 09:08 WBC 13.5 H RBC 4.40 Hgb 13.0 L Hct 37.8 L MCV 86 MCH 29.6 MCHC 34.5 RDW 15.2 H Plt Count 316 Sodium 127.9 L 129.5 L Potassium 4.2 3.9 Chloride 96 L 96 L Carbon Dioxide 24 25 Anion Gap 8 9 BUN 10 8 Creatinine 0.98 1.02 Est GFR ( Amer) > 60 > 60 Glucose 101 99 Calcium 8.5 9.0 Total Bilirubin 0.4 AST 14 L Alkaline Phosphatase 74 Total Protein 5.9 L Albumin 3.6 12/25/19 15:01 Blood Blood Culture - Final Staphylococcus Epidermidis 12/25/19 12/25/19 12/25/19 13:39 13:39 13:39 Creatine Kinase 176 H Cancelled Troponin I 0.068 NT-Pro-B Natriuret Pep 12/25/19 12/26/19 21:27 05:40 Creatine Kinase Troponin I 0.127 0.096 NT-Pro-B Natriuret Pep 818 H Impressions: Chest X-Ray 12/25/19 13:54 IMPRESSION: Asymmetric opacities in the inferolateral aspect of the left hemithorax that could represent atelectasis or a pneumonia. Assessment and Plan - Diagnosis (1) Hyponatremia Is this a current diagnosis for this admission?: Yes Plan: Initially treated in the emergency department with 3% normal saline. Sodium is improved; 116.8-> 123.6-> 126.3-> 124.9-> 127.9-> 129.5 Patient with history of hyponatremia and psychogenic polydipsia. Due to the patient's agitation and combativeness, we have resumed his home medication regiment of Depakote, Zyprexa, Cogentin, Haldol, and gabapentin. Mental health service consultation is requested for medication review and recommendations with specific regard to hyponatremia risk. Nephrology is consulted; appreciate their assistance and recommendations. Liberalize dietary sodium; regular diet. Fluid restricted 750 mL's daily. Strict I's and O's. (2) Altered mental status Is this a current diagnosis for this admission?: Yes Plan: Acute metabolic encephalopathy. Likely multifactorial secondary to hyponatremia, acute illness (left lower lobe pneumonia), in the setting of medication noncompliance and schizophrenia. Gradually improving. Disease specific management as outlined elsewhere. Supportive care. (3) Pneumonia Qualifiers: Pneumonia type: due to unspecified organism Laterality: left Lung location: lower lobe of lung Qualified Code(s): J18.9 - Pneumonia, unspecified organism Is this a current diagnosis for this admission?: Yes Plan: Chest x-ray suggestive of atelectasis versus pneumonia. Unable to determine if this is an aspiration pneumonia, although, it does remain a possible cause due to the patient's altered mentation. Blood cultures (1/4 bottles) grew staph epidermidis; likely contaminant. Sputum culture not obtained. Will repeat chest x-ray in the morning. Patient is provided supplemental oxygen as needed maintain saturations greater than 89%. Currently maintaining oxygen saturations on room air. Patient was empirically placed on IV vancomycin and Zosyn; will discontinue vancomycin today. As needed nebulizer treatments. He is placed on Robitussin as needed. Pulmonary toilet is encouraged with incentive spirometer, flutter valve, early ambulation (4) Schizophrenia Qualifiers: Schizophrenia type: unspecified Qualified Code(s): F20.9 - Schizophrenia, unspecified Is this a current diagnosis for this admission?: Yes Plan: Medications have been reconciled and resumed. Mental health services are consulted. Unfortunately due to patient agitation and combativeness, he does remain and soft limb restraints. IV Ativan or Haldol as needed anxiety/agitation. (5) Seizure Is this a current diagnosis for this admission?: Yes Plan: Seizure activity >72 hours Seizure activity noted while in the emergency department. Received loading dose of Dilantin followed by twice daily dosing until the patient has been seizure-free for greater than 48 hours. Have discontinued. Sodium is now improved and no longer a potential cause of seizure activity (129.5 today). We will continue seizure precautions and monitor closely. (6) Hypertension Is this a current diagnosis for this admission?: Yes Plan: Uncontrolled blood pressures at present. Home medications have been reconciled; have resumed home dose Diltiazem, lisinopril, and p.o. hydralazine. (7) Tobacco abuse Is this a current diagnosis for this admission?: No Plan: Daily nicotine patch. - Time Time Spent with patient: 35 or more minutes Medications reviewed and adjusted accordingly: Yes Anticipated Discharge Disposition: Psych Hospital/Unit Anticipated Discharge Timeframe: >72 hrs
[2019-12-28] MEDS ORDERED: OLANZAPINE 2.5 MG TABLET PO SCH (18:00)
[2019-12-28] MEDS: HALOPERIDOL 5 MG TABLET PO SCH (23:08)
[2019-12-28] MEDS: DIVALPROEX SODIUM 250 MG TABLET.DR PO SCH (23:08)
[2019-12-29] MEDS: ENALAPRILAT DIHYDRATE INJ/PF 1.25 MG/1 ML SDV IV PRN (00:49)
[2019-12-29 06:30] LABS: HEMATOCRIT 37.1 % (37.9-51.0); HEMOGLOBIN 12.9 g/dL (13.5-17.0); MEAN CORPUSCULAR HEMOGLOBIN 29.8 pg (27.0-33.4); MEAN CORPUSCULAR HGB CONC 34.7 g/dL (32.0-36.0); MEAN CORPUSCULAR VOLUME 86 fl (80-97); PLATELET COUNT 306 10^3/uL (150-450); RED BLOOD COUNT 4.32 10^6/uL (4.35-5.55); RED CELL DISTRIBUTION WIDTH 15.1 % (11.5-14.0); WHITE BLOOD COUNT 14.1 10^3/uL (4.0-10.5)
[2019-12-29 06:52] LABS: ANION GAP 8 (5-19); BLOOD UREA NITROGEN 11 mg/dL (7-20); CARBON DIOXIDE 24 mmol/L (22-30); CHLORIDE 98 mmol/L (98-107); GLUCOSE 91 mg/dL (75-110); POTASSIUM 3.9 mmol/L (3.6-5.0)
[2019-12-29] MEDS: HEPARIN SOD (PORCINE) 5,000 UNIT/ML 1 ML VIAL SUBCUT SCH ×3 (07:41→21:53)
[2019-12-29] MEDS: LORAZEPAM INJ 2 MG/1 ML VIAL IV PRN (07:55)
[2019-12-29] MEDS: PIPERACILLIN SODIUM/TAZOBACTAM 3.375 GM in NORMAL SALINE 100 ML IV SCH ×2 (07:59→12:45)
[2019-12-29] MEDS: HYDRALAZINE HCL 10 MG TABLET PO SCH ×3 (08:02→20:45)
[2019-12-29] MEDS: DIVALPROEX SODIUM 250 MG TABLET.DR PO SCH ×3 (08:03→21:46)
[2019-12-29] MEDS: PANTOPRAZOLE SODIUM 20 MG TABLET.DR PO SCH (08:03)
[2019-12-29] MEDS ORDERED: BENZTROPINE MESYLATE 1 MG TABLET PO SCH (10:00)
[2019-12-29] MEDS ORDERED: CLONIDINE 0.2 MG/24 HR PATCH.TDWK TD SCH (10:00)
--- NOTE | 2019-12-29 12:13 | RADIOLOGY REPORT (SQ) ---
EXAM DESCRIPTION: CHEST SINGLE VIEW IMAGES COMPLETED DATE/TIME: 12/29/2019 8:05 am REASON FOR STUDY: leukocytosis COMPARISON: 12/25/2019. EXAM PARAMETERS: NUMBER OF VIEWS: One view. TECHNIQUE: Single frontal radiographic view of the chest acquired. RADIATION DOSE: NA LIMITATIONS: None. FINDINGS: LUNGS AND PLEURA: No opacities, masses or pneumothorax. No pleural effusion. MEDIASTINUM AND HILAR STRUCTURES: No masses. Contour normal. HEART AND VASCULAR STRUCTURES: Heart normal in size. Normal vasculature. BONES: No acute findings. HARDWARE: None in the chest. OTHER: No other significant finding. IMPRESSION: NO ACUTE RADIOGRAPHIC FINDING IN THE CHEST. TECHNICAL DOCUMENTATION: JOB ID: [id number] 2010 [employer]- All Rights Reserved Reading location - IP/workstation name: [email or web address]
[2019-12-29] MEDS ORDERED: LORAZEPAM INJ 2 MG/1 ML VIAL IV PRN (12:41)
[2019-12-29] MEDS: HALOPERIDOL 5 MG TABLET PO SCH (12:43)
[2019-12-29] MEDS: LISINOPRIL 10 MG TABLET PO SCH (12:43)
[2019-12-29] MEDS: GABAPENTIN 300 MG CAPSULE PO SCH (12:43)
[2019-12-29] MEDS: DILTIAZEM HCL 240 MG CAPSULE.CR PO SCH (12:44)
[2019-12-29] MEDS: NICOTINE 21 MG/24 HR PATCH.TD24 TD SCH (12:45)
[2019-12-29] MEDS: FLUTICASONE/VILANTEROL 200-25 MCG/DOSE IH SCH (12:47)
--- NOTE | 2019-12-29 13:47 | PDOC CONSULTATION ---
Consultation-Blank Consultation: Behavioral Health Consult: Patient continuing to have uncontrolled behaviors and making verbal threats. Concern for hyponatremia and current medication regimen (being home medications) contributing to that. Requested medication review. Chart review conducted around 1330. Included review of home medications, med ication being administered in the hospital, lab work, old Head CT and other information. Clinical Presentation: Continued uncontrolled behaviors Concerns for medications affecting hyponatremia Concerns for neurodegenerative processes which would mean co-occurring mental health and dementia like processes Medication recommendations made by the psychiatric medication provider Dr. Elmo TREJO., includes: Discontinue Haldol 5MG every 12 hours Discontinue Haldol 5MG every 4 hours as needed Discontinue Ativan (looks like not administered yet) Discontinue Zyprexa 2.5MG at night Discontinue Geodon (used previously) Discontinue Cogentin Continue Clonidine for calming effect Continue Depakote 250MG three times a day for mood stabilization Add Buspar 5MG twice a day for anxiety/calming effect/depression/sleep Add Risperdal 0.25MG twice a day as needed for agitation/psychosis/behaviors Also request updated Head CT given the former one from 2014 had neurodegenerative process language. This is important as we want to see if the neurodegenerative processes are the same or if they worsened in the past 6 years. It helps to know what medications to utilize and avoid. Impression/Plan: Advising to please keep psychiatric medication regimen as listed above which should stabilize behavior. Depakote is not felt to be contributing to hyponatremia since first dose started last evening at 2200. It is possible the Cogentin and Antipsychotic medications were contributing to the hyponatremia. Because of this numerous medications are recommended to be discontinued, and another reason is related to neurodegenerative processes and how medications (antipsychotics, benzodiazepines, certain sleep medications, prolonged use of steroids, narcotic pain medications) can cause and/or exacerbate psychosis/aggression/agitation/confusion/mood lability. Consulted with Dr. Lujan regarding the management and care of patient. Attending Hospitalist aware of recommendations.
--- NOTE | 2019-12-29 15:04 | PDOC PROGRESS REPORT ---
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 Patient was seen on morning rounds. He is found resting bed, comfortably, on r oom air. He remains in four-point restraints continues to direct aggressive/combative behaviors toward nursing staff. Currently, patient is sleeping soundly having recently been medicated with IV a tivan. He does appear to be comfortable and is not noted to be in any acute distress at this time. ROS is otherwise limited. No concerns per nursing. Reason For Visit: HYPONATREMIA Physical Exam Vital Signs: Temp Pulse Resp BP Pulse Ox 97.8 F 91 20 148/94 H 98 12/29/19 08:40 12/29/19 12:39 12/29/19 12:39 12/29/19 12:39 12/29/19 12:39 Intake & Output 12/28/19 12/29/19 12/30/19 06:59 06:59 06:59 Intake Total 2937 2064 200 Output Total 330 600 Balance 2607 1464 200 Weight 84 kg 84.1 kg General appearance: PRESENT: no acute distress, disheveled, well-developed, well-nourished Head exam: PRESENT: atraumatic, normocephalic Eye exam: PRESENT: conjunctiva pink, EOMI, PERRLA. ABSENT: scleral icterus Mouth exam: PRESENT: moist, tongue midline Respiratory exam: PRESENT: clear to auscultation alan, symmetrical, unlabored. ABSENT: rales, rhonchi, wheezes Cardiovascular exam: PRESENT: RRR, +S1, +S2. ABSENT: diastolic murmur, rubs, systolic murmur Pulses: PRESENT: normal dorsalis pedis pul Vascular exam: PRESENT: normal capillary refill GI/Abdominal exam: PRESENT: normal bowel sounds, soft. ABSENT: distended, guarding, mass, organolmegaly, rebound, tenderness Rectal exam: PRESENT: deferred Extremities exam: PRESENT: full ROM - Moves all extremities spontaneously. ABSENT: calf tenderness, clubbing, pedal edema Neurological exam: PRESENT: CN II-XII grossly intact, other - Sleeping soundly. ABSENT: motor sensory deficit Skin exam: PRESENT: dry, intact, warm. ABSENT: cyanosis, rash Results Laboratory Results: 12/29/19 05:34 12/29/19 05:34 12/29/19 12/29/19 05:34 05:34 WBC 14.1 H RBC 4.32 L Hgb 12.9 L Hct 37.1 L MCV 86 MCH 29.8 MCHC 34.7 RDW 15.1 H Plt Count 306 Sodium 129.8 L Potassium 3.9 Chloride 98 Carbon Dioxide 24 Anion Gap 8 BUN 11 Creatinine 1.05 Est GFR ( Amer) > 60 Glucose 91 Calcium 9.0 12/25/19 15:01 Blood Blood Culture - Final Staphylococcus Epidermidis 12/25/19 12/25/19 12/25/19 13:39 13:39 13:39 Creatine Kinase 176 H Cancelled Troponin I 0.068 NT-Pro-B Natriuret Pep 12/25/19 12/26/19 21:27 05:40 Creatine Kinase Troponin I 0.127 0.096 NT-Pro-B Natriuret Pep 818 H Impressions: Chest X-Ray 12/29/19 07:00 IMPRESSION: NO ACUTE RADIOGRAPHIC FINDING IN THE CHEST. Assessment and Plan - Diagnosis (1) Hyponatremia Is this a current diagnosis for this admission?: Yes Plan: Initially treated in the emergency department with 3% normal saline. Sodium is improved; 116.8-> 123.6-> 126.3-> 124.9-> 127.9-> 129.5-> 129.8 Patient with history of hyponatremia and psychogenic polydipsia. Mental health service consultation obtained; they have reviewed his medication regiment and made recommendations with regard to his recurrent episodes of hyponatremia. Nephrology is consulted; appreciate their assistance and recommendations. Liberalize dietary sodium; regular diet. Fluid restricted 750 mL's daily. Strict I's and O's. (2) Altered mental status Is this a current diagnosis for this admission?: Yes Plan: Acute metabolic encephalopathy. Likely multifactorial secondary to hyponatremia, acute illness (left lower lobe pneumonia), in the setting of medication noncompliance and schizophrenia. Gradually improving. Head CT pending Disease specific management as outlined elsewhere. Supportive care. (3) Pneumonia Qualifiers: Pneumonia type: due to unspecified organism Laterality: left Lung location: lower lobe of lung Qualified Code(s): J18.9 - Pneumonia, unspecified organism Is this a current diagnosis for this admission?: Yes Plan: Chest x-ray suggestive of atelectasis versus pneumonia. Unable to determine if this is an aspiration pneumonia, although, it does remain a possible cause due to the patient's altered mentation. Blood cultures (1/4 bottles) grew staph epidermidis; likely contaminant. Sputum culture not obtained. Repeat CXR is clear. Patient remains afebrile with clear lung sounds and maintaining oxygen saturations on room air. He is noted to have leukocytosis (14.1) Patient is provided supplemental oxygen as needed maintain saturations greater than 89%. Currently maintaining oxygen saturations on room air. Vancomycin was discontinued day #3, Zosyn discontinued day #4. As needed nebulizer treatments. He is placed on Robitussin as needed. Pulmonary toilet is encouraged with incentive spirometer, flutter valve, early ambulation (4) Schizophrenia Qualifiers: Schizophrenia type: unspecified Qualified Code(s): F20.9 - Schizophrenia, unspecified Is this a current diagnosis for this admission?: Yes Plan: Medications have been reconciled and resumed. Unfortunately due to patient agitation and combativeness, he does remain and soft limb restraints. Mental health services were consulted with following medication recommendations: Discontinue Haldol 5MG every 12 hours Discontinue Haldol 5MG every 4 hours as needed Discontinue Ativan (looks like not administered yet) Discontinue Zyprexa 2.5MG at night Discontinue Geodon (used previously) Discontinue Cogentin Continue Clonidine Continue Depakote 250MG three times a day Add Buspar 5MG twice a day Add Risperdal 0.25MG twice a day as needed (5) Seizure Is this a current diagnosis for this admission?: Yes Plan: Seizure activity >72 hours Seizure activity noted while in the emergency department. Received loading dose of Dilantin followed by twice daily dosing until the patient has been seizure-free for greater than 48 hours. Have discontinued. Sodium is now improved and no longer a potential cause of seizure activity (129.5 today). We will continue seizure precautions and monitor closely. (6) Hypertension Is this a current diagnosis for this admission?: Yes Plan: Uncontrolled blood pressures at present. Home medications have been reconciled; have resumed home dose Diltiazem, lisinopril, and p.o. hydralazine. Patient is inconsistent with oral medications. Have started clonidine 0.2 mg / 24-hour Transdermal patch (also recommended by mental health services for behavioral disturbances) (7) Tobacco abuse Is this a current diagnosis for this admission?: Yes Plan: Daily nicotine patch. - Time Time Spent with patient: 25-34 minutes Medications reviewed and adjusted accordingly: Yes Anticipated Discharge Disposition: Psych Hospital/Unit Anticipated Discharge Timeframe: >72 hrs
[2019-12-29] MEDS: NORMAL SALINE 1000 ML 1,000 ML IV PRN (20:22)
[2019-12-29] MEDS ORDERED: NORMAL SALINE 1000 ML 1,000 ML IV ONE (20:45)
[2019-12-29] MEDS: BUSPIRONE HCL 10 MG TABLET PO SCH (21:46)
[2019-12-30] MEDS: PANTOPRAZOLE SODIUM 20 MG TABLET.DR PO SCH (05:10)
[2019-12-30] MEDS: DIVALPROEX SODIUM 250 MG TABLET.DR PO SCH ×4 (05:10→21:53)
[2019-12-30] MEDS: HYDRALAZINE HCL 10 MG TABLET PO SCH ×3 (05:43→18:25)
[2019-12-30] MEDS: HEPARIN SOD (PORCINE) 5,000 UNIT/ML 1 ML VIAL SUBCUT SCH ×3 (05:44→21:53)
[2019-12-30] MEDS: FLUTICASONE/VILANTEROL 200-25 MCG/DOSE IH SCH (09:33)
[2019-12-30] MEDS: BUSPIRONE HCL 10 MG TABLET PO SCH ×2 (09:34→21:53)
[2019-12-30] MEDS: DILTIAZEM HCL 240 MG CAPSULE.CR PO SCH (09:34)
[2019-12-30] MEDS: NICOTINE 21 MG/24 HR PATCH.TD24 TD SCH (09:35)
[2019-12-30] MEDS: LISINOPRIL 10 MG TABLET PO SCH (09:37)
[2019-12-30 11:21] LABS: HEMATOCRIT 36.6 % (37.9-51.0); HEMOGLOBIN 12.6 g/dL (13.5-17.0); MEAN CORPUSCULAR HEMOGLOBIN 30.2 pg (27.0-33.4); MEAN CORPUSCULAR HGB CONC 34.5 g/dL (32.0-36.0); MEAN CORPUSCULAR VOLUME 87 fl (80-97); PLATELET COUNT 291 10^3/uL (150-450); RED BLOOD COUNT 4.19 10^6/uL (4.35-5.55); RED CELL DISTRIBUTION WIDTH 15.2 % (11.5-14.0); WHITE BLOOD COUNT 12.8 10^3/uL (4.0-10.5)
[2019-12-30 11:44] LABS: ANION GAP 9 (5-19); BLOOD UREA NITROGEN 21 mg/dL (7-20); CALCIUM 8.7 mg/dL (8.4-10.2); CARBON DIOXIDE 21 mmol/L (22-30); CHLORIDE 103 mmol/L (98-107); GLUCOSE 101 mg/dL (75-110); POTASSIUM 4.1 mmol/L (3.6-5.0)
[2019-12-30] MEDS: GABAPENTIN 300 MG CAPSULE PO SCH (12:27)
--- NOTE | 2019-12-30 17:39 | PDOC PROGRESS REPORT ---
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 Patient was seen on morning rounds. He is found resting bed, comfortably, on r oom air. He remains in four-point restraints. He is orientated to self, place, and the year 2005/[employer]. He politely asks me to readjust his pillow and negative turner the lights. States he "feels fine." He does appear to be comfortable and is not noted to be in any acute distress at this time. ROS is otherwise negative No concerns per nursing. Reason For Visit: HYPONATREMIA Physical Exam Vital Signs: Temp Pulse Resp BP Pulse Ox 97.6 F 63 14 96/66 L 96 12/30/19 03:08 12/30/19 05:12 12/30/19 03:08 12/30/19 05:12 12/30/19 03:08 Intake & Output 12/29/19 12/30/19 12/31/19 06:59 06:59 06:59 Intake Total 2064 2542 Output Total 600 550 Balance 1464 1991 Weight 84.1 kg 87.3 kg General appearance: PRESENT: no acute distress, cooperative, well-developed, well-nourished - overweight Head exam: PRESENT: atraumatic, normocephalic Eye exam: PRESENT: conjunctiva pink, EOMI, PERRLA. ABSENT: scleral icterus Ear exam: PRESENT: normal external ear exam Mouth exam: PRESENT: moist, tongue midline Respiratory exam: PRESENT: clear to auscultation alan, symmetrical, unlabored, other - room air. ABSENT: rales, rhonchi, wheezes Cardiovascular exam: PRESENT: RRR, +S1, +S2. ABSENT: diastolic murmur, rubs, systolic murmur Pulses: PRESENT: normal dorsalis pedis pul Vascular exam: PRESENT: normal capillary refill GI/Abdominal exam: PRESENT: normal bowel sounds, soft. ABSENT: distended, guarding, mass, organolmegaly, rebound, tenderness Rectal exam: PRESENT: deferred Extremities exam: ABSENT: calf tenderness, clubbing, pedal edema Neurological exam: PRESENT: alert, awake, oriented to person, oriented to place, CN II-XII grossly intact. ABSENT: oriented to time, oriented to situation, motor sensory deficit Psychiatric exam: PRESENT: appropriate affect, normal mood. ABSENT: homicidal ideation, suicidal ideation Skin exam: PRESENT: dry, intact, warm. ABSENT: cyanosis, rash Results Laboratory Results: 12/30/19 11:07 12/30/19 11:07 12/30/19 12/30/19 11:07 11:07 WBC 12.8 H RBC 4.19 L Hgb 12.6 L Hct 36.6 L MCV 87 MCH 30.2 MCHC 34.5 RDW 15.2 H Plt Count 291 Sodium 133.0 L Potassium 4.1 Chloride 103 Carbon Dioxide 21 L Anion Gap 9 BUN 21 H Creatinine 1.20 Est GFR ( Amer) > 60 Glucose 101 Calcium 8.7 12/25/19 16:18 Blood Blood Culture - Final NO GROWTH IN 5 DAYS 12/25/19 12/25/19 12/25/19 13:39 13:39 13:39 Creatine Kinase 176 H Cancelled Troponin I 0.068 NT-Pro-B Natriuret Pep 12/25/19 12/26/19 21:27 05:40 Creatine Kinase Troponin I 0.127 0.096 NT-Pro-B Natriuret Pep 818 H Impressions: Chest X-Ray 12/29/19 07:00 IMPRESSION: NO ACUTE RADIOGRAPHIC FINDING IN THE CHEST. Assessment and Plan - Diagnosis (1) Hyponatremia Is this a current diagnosis for this admission?: Yes Plan: Initially treated in the emergency department with 3% normal saline. Sodium is improved; 116.8-> 123.6-> 126.3-> 124.9-> 127.9-> 129.5-> 129.8-> 133.0 Patient with history of hyponatremia and psychogenic polydipsia. Mental health service consultation obtained; they have reviewed his medication regiment and made recommendations with regard to his recurrent episodes of hyponatremia. Nephrology is consulted; appreciate their assistance and recommendations. Liberalize dietary sodium; regular diet. Fluid restricted 750 mL's daily. Strict I&O's. (2) Altered mental status Is this a current diagnosis for this admission?: Yes Plan: Acute metabolic encephalopathy. Likely multifactorial secondary to hyponatremia, acute illness (left lower lobe pneumonia), in the setting of medication noncompliance and schizophrenia. Gradually improving. Head CT pending Disease specific management as outlined elsewhere. Nursing has been able to remove soft limb restraints today; this afternoon, patient remains calm and cooperative Supportive care. (3) Pneumonia Qualifiers: Pneumonia type: due to unspecified organism Laterality: left Lung location: lower lobe of lung Qualified Code(s): J18.9 - Pneumonia, unspecified organism Is this a current diagnosis for this admission?: Yes Plan: Chest x-ray suggestive of atelectasis versus pneumonia. Unable to determine if this is an aspiration pneumonia, although, it does remain a possible cause due to the patient's altered mentation. Blood cultures (1/4 bottles) grew staph epidermidis; likely contaminant. Sputum culture not obtained. Repeat CXR is clear. Patient remains afebrile with clear lung sounds and maintaining oxygen saturations on room air. Leukocytosis trending down; 14.1-> 12.8 Patient is provided supplemental oxygen as needed maintain saturations greater than 89%. Currently maintaining oxygen saturations on room air. Vancomycin was discontinued day #3, Zosyn discontinued day #4. As needed nebulizer treatments. He is placed on Robitussin as needed. Pulmonary toilet is encouraged with incentive spirometer, flutter valve, early ambulation (4) Schizophrenia Qualifiers: Schizophrenia type: unspecified Qualified Code(s): F20.9 - Schizophrenia, unspecified Is this a current diagnosis for this admission?: Yes Plan: Calm and cooperative today. 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 Unclear baseline Mental health services were consulted with following medication recommendations: Discontinue Haldol 5MG every 12 hours Discontinue Haldol 5MG every 4 hours as needed Discontinue Ativan (looks like not administered yet) Discontinue Zyprexa 2.5MG at night Discontinue Geodon (used previously) Discontinue Cogentin Continue Depakote 250MG three times a day Add Buspar 5MG twice a day Add Risperdal 0.25MG twice a day as needed (5) Seizure Is this a current diagnosis for this admission?: Yes Plan: Seizure activity >72 hours Seizure activity noted while in the emergency department. Received loading dose of Dilantin followed by twice daily dosing until the patient has been seizure-free for greater than 48 hours. Have discontinued. Sodium is now improved and no longer a potential cause of seizure activity (129.5 today). We will continue seizure precautions and monitor closely. (6) Hypertension Is this a current diagnosis for this admission?: Yes Plan: Uncontrolled blood pressures at present. Home medications have been reconciled; have resumed home dose Diltiazem, lisinopril, and p.o. hydralazine. Patient is inconsistent with oral medications. Clonidine patch removed overnight related to hypotension. Blood pressures remain soft. (7) Tobacco abuse Is this a current diagnosis for this admission?: Yes Plan: Daily nicotine patch. - Time Time Spent with patient: 25-34 minutes Medications reviewed and adjusted accordingly: Yes Anticipated Discharge Disposition: Assisted Living with Home Health Services Anticipated Discharge Timeframe: within 72 hours - Pending mental health evaluation and determination
[2019-12-31] MEDS: DIVALPROEX SODIUM 250 MG TABLET.DR PO SCH ×3 (06:33→22:33)
[2019-12-31] MEDS: HYDRALAZINE HCL 10 MG TABLET PO SCH ×3 (06:33→18:05)
[2019-12-31] MEDS: PANTOPRAZOLE SODIUM 20 MG TABLET.DR PO SCH (06:34)
[2019-12-31] MEDS: HEPARIN SOD (PORCINE) 5,000 UNIT/ML 1 ML VIAL SUBCUT SCH ×3 (06:34→21:54)
[2019-12-31 06:35] LABS: HEMATOCRIT 35.2 % (37.9-51.0); HEMOGLOBIN 12.4 g/dL (13.5-17.0); MEAN CORPUSCULAR HEMOGLOBIN 30.4 pg (27.0-33.4); MEAN CORPUSCULAR HGB CONC 35.1 g/dL (32.0-36.0); MEAN CORPUSCULAR VOLUME 87 fl (80-97); PLATELET COUNT 267 10^3/uL (150-450); RED BLOOD COUNT 4.07 10^6/uL (4.35-5.55); RED CELL DISTRIBUTION WIDTH 15.2 % (11.5-14.0); WHITE BLOOD COUNT 9.8 10^3/uL (4.0-10.5)
[2019-12-31 07:14] LABS: ANION GAP 8 (5-19); BLOOD UREA NITROGEN 20 mg/dL (7-20); CALCIUM 8.8 mg/dL (8.4-10.2); CARBON DIOXIDE 21 mmol/L (22-30); CHLORIDE 105 mmol/L (98-107); GLUCOSE 92 mg/dL (75-110); POTASSIUM 4.2 mmol/L (3.6-5.0)
[2019-12-31] MEDS: NICOTINE 21 MG/24 HR PATCH.TD24 TD SCH (09:57)
[2019-12-31] MEDS: LISINOPRIL 10 MG TABLET PO SCH (09:58)
[2019-12-31] MEDS: DILTIAZEM HCL 240 MG CAPSULE.CR PO SCH (09:58)
[2019-12-31] MEDS: BUSPIRONE HCL 10 MG TABLET PO SCH ×2 (09:59→22:33)
[2019-12-31] MEDS: FLUTICASONE/VILANTEROL 200-25 MCG/DOSE IH SCH (10:00)
[2019-12-31] MEDS: NORMAL SALINE 1000 ML 1,000 ML IV PRN (10:01)
[2019-12-31] MEDS: GABAPENTIN 300 MG CAPSULE PO SCH (12:36)
--- NOTE | 2019-12-31 14:13 | PDOC PROGRESS REPORT ---
Subjective Progress Note for:: 12/31/19 Subjective:: Patient is resting in bed. He claims that he is not putting out enough urine however nursing reports otherwise. He also reports that he is having some discomfort. Nonfocal. Nursing reports good urine output and 2 large bowel movements today. Reason For Visit: HYPONATREMIA Physical Exam Vital Signs: Temp Pulse Resp BP Pulse Ox 97.6 F 75 19 150/87 H 100 12/30/19 20:30 12/31/19 07:00 12/30/19 20:30 12/30/19 20:30 12/30/19 20:30 Intake & Output 12/30/19 12/31/19 01/01/20 06:59 06:59 06:59 Intake Total 2542 497 Output Total 550 850 Balance 1991 Weight 87.3 kg 87.3 kg General appearance: PRESENT: cooperative, mild distress, well-developed Head exam: PRESENT: atraumatic, normocephalic Respiratory exam: PRESENT: symmetrical, unlabored, wheezes - Inspiratory and expiratory wheeze. Likely positional as he is resting at a 45 degree angle on the right side.. ABSENT: prolonged expiratory phas, rales, rhonchi, tachypnea Cardiovascular exam: PRESENT: RRR, +S1, +S2. ABSENT: diastolic murmur, irregular rhythm, systolic murmur, tachycardia GI/Abdominal exam: PRESENT: normal bowel sounds, soft, tenderness - Winces with palpation. ABSENT: distended, guarding Rectal exam: PRESENT: deferred Extremities exam: ABSENT: clubbing, pedal edema Musculoskeletal exam: PRESENT: normal inspection. ABSENT: deformity, dislocat ion Neurological exam: PRESENT: alert, awake, oriented to person, oriented to place Psychiatric exam: PRESENT: flat affect. ABSENT: agitated, anxious Focused psych exam: ABSENT: delusional, paranoid, restlessness Skin exam: PRESENT: dry, normal color, warm. ABSENT: rash Results Laboratory Results: 12/31/19 06:03 12/31/19 06:03 12/31/19 12/31/19 06:03 06:03 WBC 9.8 RBC 4.07 L Hgb 12.4 L Hct 35.2 L MCV 87 MCH 30.4 MCHC 35.1 RDW 15.2 H Plt Count 267 Sodium 134.4 L Potassium 4.2 Chloride 105 Carbon Dioxide 21 L Anion Gap 8 BUN 20 Creatinine 1.03 Est GFR ( Amer) > 60 Glucose 92 Calcium 8.8 12/25/19 16:18 Blood Blood Culture - Final NO GROWTH IN 5 DAYS 12/25/19 12/25/19 12/25/19 13:39 13:39 13:39 Creatine Kinase 176 H Cancelled Troponin I 0.068 NT-Pro-B Natriuret Pep 12/25/19 12/26/19 21:27 05:40 Creatine Kinase Troponin I 0.127 0.096 NT-Pro-B Natriuret Pep 818 H Impressions: Chest X-Ray 12/29/19 07:00 IMPRESSION: NO ACUTE RADIOGRAPHIC FINDING IN THE CHEST. Assessment and Plan - Diagnosis (1) Hyponatremia Is this a current diagnosis for this admission?: Yes (2) Acute metabolic encephalopathy Is this a current diagnosis for this admission?: Yes (3) Pneumonia Qualifiers: Pneumonia type: due to unspecified organism Laterality: left Lung location: lower lobe of lung Qualified Code(s): J18.9 - Pneumonia, unspecified organism Is this a current diagnosis for this admission?: Yes (4) Schizophrenia Qualifiers: Schizophrenia type: unspecified Qualified Code(s): F20.9 - Schizophrenia, unspecified Is this a current diagnosis for this admission?: Yes (5) Seizure Is this a current diagnosis for this admission?: Yes (6) Hypertension Is this a current diagnosis for this admission?: Yes (7) Tobacco abuse Is this a current diagnosis for this admission?: Yes - Plan Summary Summary: 12/31/2019 Patient is improved Hyponatremia-serum sodium is up to 134. 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 Continue to monitor intake and output. Continue to monitor sodium levels. Continue fluid restriction. Once his serum sodium is in the normal range we could slightly increase his fluid intake. Acute encephalopathy-secondary to infection and the hyponatremia. Per previous progress notes he does seem to be at his baseline. He has been out of restrain ts for greater than 24 hours. Continue to monitor. Pneumonia-antibiotics were stopped after 3 to 4 days. The patient is stable. Not sure if this was in fact an aspiration episode. We will continue to monitor CBC and vital signs. Schizophrenia-appreciate psychiatry's input. Current regimen appears to be working. Continue same. Hypertension-blood pressure is increased today. I believe he just resumed his diltiazem, lisinopril and hydralazine. We will continue current medications and monitor blood pressures. Adjust medications accordingly. - Time Time Spent with patient: 15-24 minutes Medications reviewed and adjusted accordingly: Yes Anticipated Discharge Disposition: Assisted Living with Home Health Services Anticipated Discharge Timeframe: Pending mental health evaluation and bed availability
[2019-12-31] MEDS: ENALAPRILAT DIHYDRATE INJ/PF 1.25 MG/1 ML SDV IV PRN (20:20)
[2020-01-01] MEDS: HYDRALAZINE HCL 10 MG TABLET PO SCH ×3 (05:26→17:27)
[2020-01-01] MEDS: PANTOPRAZOLE SODIUM 20 MG TABLET.DR PO SCH (05:26)
[2020-01-01] MEDS: HEPARIN SOD (PORCINE) 5,000 UNIT/ML 1 ML VIAL SUBCUT SCH ×3 (05:26→21:03)
[2020-01-01] MEDS: DIVALPROEX SODIUM 250 MG TABLET.DR PO SCH ×3 (05:26→21:02)
[2020-01-01] MEDS: DILTIAZEM HCL 240 MG CAPSULE.CR PO SCH (09:20)
[2020-01-01] MEDS: FLUTICASONE/VILANTEROL 200-25 MCG/DOSE IH SCH (09:20)
[2020-01-01] MEDS: LISINOPRIL 10 MG TABLET PO SCH ×2 (09:20→21:02)
[2020-01-01] MEDS: BUSPIRONE HCL 10 MG TABLET PO SCH ×2 (09:20→21:02)
[2020-01-01] MEDS: NICOTINE 21 MG/24 HR PATCH.TD24 TD SCH (09:20)
[2020-01-01] MEDS: GABAPENTIN 300 MG CAPSULE PO SCH (11:50)
--- NOTE | 2020-01-01 14:51 | PDOC PROGRESS REPORT ---
Subjective Progress Note for:: 01/01/20 Subjective:: The patient is resting comfortably in bed. The sitter reports that he has been well behaved. He ate breakfast and lunch. He has been sitting watching television. He was asking "what is going on" and I explained about his sodium being low, the infection and how we wanted to get him back on his medications. Reason For Visit: HYPONATREMIA Physical Exam Vital Signs: Temp Pulse Resp BP Pulse Ox 97.8 F 81 16 148/88 H 100 01/01/20 10:53 01/01/20 10:53 01/01/20 10:53 01/01/20 10:53 01/01/20 10:53 Intake & Output 12/31/19 01/01/20 01/02/20 06:59 06:59 06:59 Intake Total 497 1180 322 Output Total 850 3300 Balance -353 -2120 322 Weight 87.3 kg 87.3 kg General appearance: PRESENT: no acute distress, cooperative, well-developed Head exam: PRESENT: atraumatic, normocephalic Ear exam: PRESENT: normal external ear exam. ABSENT: bleeding, drainage Mouth exam: PRESENT: moist, tongue midline Respiratory exam: PRESENT: rales - Faint rales right base, symmetrical, unlabored. ABSENT: tachypnea, wheezes Cardiovascular exam: PRESENT: RRR, +S1, +S2 GI/Abdominal exam: PRESENT: normal bowel sounds, soft. ABSENT: distended, guarding, tenderness Rectal exam: PRESENT: deferred Gentrourinary exam: ABSENT: indwelling catheter Extremities exam: ABSENT: pedal edema Musculoskeletal exam: PRESENT: ambulatory, normal inspection. ABSENT: deformity, dislocation Neurological exam: PRESENT: alert, awake, oriented to person, oriented to place Psychiatric exam: PRESENT: flat affect. ABSENT: agitated, anxious Results Laboratory Results: 12/31/19 06:03 12/31/19 06:03 12/25/19 12/25/19 12/25/19 13:39 13:39 13:39 Creatine Kinase 176 H Cancelled Troponin I 0.068 NT-Pro-B Natriuret Pep 12/25/19 12/26/19 21:27 05:40 Creatine Kinase Troponin I 0.127 0.096 NT-Pro-B Natriuret Pep 818 H Impressions: Chest X-Ray 12/29/19 07:00 IMPRESSION: NO ACUTE RADIOGRAPHIC FINDING IN THE CHEST. Assessment and Plan - Diagnosis (1) Hyponatremia Is this a current diagnosis for this admission?: Yes (2) Acute metabolic encephalopathy Is this a current diagnosis for this admission?: Yes (3) Pneumonia Qualifiers: Pneumonia type: due to unspecified organism Laterality: left Lung location: lower lobe of lung Qualified Code(s): J18.9 - Pneumonia, unspecified organism Is this a current diagnosis for this admission?: Yes (4) Schizophrenia Qualifiers: Schizophrenia type: unspecified Qualified Code(s): F20.9 - Schizophrenia, unspecified Is this a current diagnosis for this admission?: Yes (5) Seizure Is this a current diagnosis for this admission?: Yes (6) Hypertension Is this a current diagnosis for this admission?: Yes (7) Tobacco abuse Is this a current diagnosis for this admission?: Yes - Plan Summary Summary: 12/31/2019 Patient is improved Hyponatremia-serum sodium is up to 134. 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 Continue to monitor intake and output. Continue to monitor sodium levels. Continue fluid restriction. Once his serum sodium is in the normal range we could slightly increase his fluid intake. Acute encephalopathy-secondary to infection and the hyponatremia. Per previous progress notes he does seem to be at his baseline. He has been out of restraints for greater than 24 hours. Continue to monitor. Pneumonia-antibiotics were stopped after 3 to 4 days. The patient is stable. Not sure if this was in fact an aspiration episode. We will continue to monitor CBC and vital signs. Schizophrenia-appreciate psychiatry's input. Current regimen appears to be working. Continue same. Hypertension-blood pressure is increased today. I believe he just resumed his diltiazem, lisinopril and hydralazine. We will continue current medications and monitor blood pressures. Adjust medications accordingly. 01/01/2020 Sodium was 134 yesterday. Will recheck tomorrow. Encephalopathy resolved. Patient appears to be back at baseline. Hypertension-we will increase lisinopril to 20 mg twice a day Schizophrenia-continue current regimen At this point I feel the patient is stable to live in a monitored situation such as a memory care unit. - Time Time Spent with patient: 15-24 minutes Medications reviewed and adjusted accordingly: Yes Anticipated Discharge Disposition: [facility] Anticipated Discharge Timeframe: within 72 hours
[2020-01-01] MEDS ORDERED: CALCIUM CARBONATE 500 MG TAB.CHEW PO PRN (20:18)
[2020-01-02] MEDS: ENALAPRILAT DIHYDRATE INJ/PF 1.25 MG/1 ML SDV IV PRN (00:47)
[2020-01-02] MEDS: HYDRALAZINE HCL 10 MG TABLET PO SCH ×2 (05:17→13:18)
[2020-01-02] MEDS: HEPARIN SOD (PORCINE) 5,000 UNIT/ML 1 ML VIAL SUBCUT SCH ×3 (05:17→21:40)
[2020-01-02] MEDS: DIVALPROEX SODIUM 250 MG TABLET.DR PO SCH ×3 (05:17→21:40)
[2020-01-02] MEDS: PANTOPRAZOLE SODIUM 20 MG TABLET.DR PO SCH (05:17)
[2020-01-02 05:44] LABS: ANION GAP 11 (5-19); BLOOD UREA NITROGEN 18 mg/dL (7-20); CALCIUM 9.3 mg/dL (8.4-10.2); CARBON DIOXIDE 21 mmol/L (22-30); CHLORIDE 104 mmol/L (98-107); GLUCOSE 98 mg/dL (75-110); POTASSIUM 4.3 mmol/L (3.6-5.0)
[2020-01-02] MEDS: NITROGLYCERIN 2% OINTMENT 1 GM PACKET TP SCH ×2 (06:01→12:53)
[2020-01-02] MEDS: MAG HYDROX/AL HYDROX/SIMETH SUSP 30 ML UDCUP PO PRN (10:31)
[2020-01-02] MEDS: NICOTINE 21 MG/24 HR PATCH.TD24 TD SCH (10:31)
[2020-01-02] MEDS: DILTIAZEM HCL 240 MG CAPSULE.CR PO SCH (10:31)
[2020-01-02] MEDS: LISINOPRIL 10 MG TABLET PO SCH ×2 (10:31→21:40)
[2020-01-02] MEDS: BUSPIRONE HCL 10 MG TABLET PO SCH ×2 (10:31→21:40)
[2020-01-02] MEDS: FINASTERIDE 5 MG TABLET PO SCH (10:31)
[2020-01-02] MEDS: FLUTICASONE/VILANTEROL 200-25 MCG/DOSE IH SCH (10:31)
[2020-01-02] MEDS: GABAPENTIN 300 MG CAPSULE PO SCH (13:18)
[2020-01-02] MEDS ORDERED: ZIPRASIDONE MESYLATE INJ/PF 20 MG SDV IM PRN (15:24)
--- NOTE | 2020-01-02 15:33 | PDOC PROGRESS REPORT ---
Subjective Progress Note for:: 01/02/20 Subjective:: The patient is resting in bed. He looks a little more loera today than yesterday. Serum sodium continues to improve slowly. He is questioning the Nitropaste on his chest. Reason For Visit: HYPONATREMIA Physical Exam Vital Signs: Temp Pulse Resp BP Pulse Ox 97.9 F 83 16 152/97 H 100 01/02/20 10:56 01/02/20 10:56 01/02/20 10:56 01/02/20 10:56 01/02/20 10:56 Intake & Output 01/01/20 01/02/20 01/03/20 06:59 06:59 06:59 Intake Total 1180 622 Output Total 3300 650 Balance -2119 Weight 87.3 kg 83.4 kg General appearance: PRESENT: cooperative, mild distress, well-developed Head exam: PRESENT: atraumatic, normocephalic Respiratory exam: PRESENT: clear to auscultation alan, symmetrical, unlabored. ABSENT: rales, rhonchi, tachypnea, wheezes Cardiovascular exam: PRESENT: RRR, +S1, +S2. ABSENT: bradycardia, diastolic mur mur, irregular rhythm, systolic murmur, tachycardia GI/Abdominal exam: PRESENT: normal bowel sounds, soft. ABSENT: distended, guarding, tenderness Extremities exam: ABSENT: pedal edema Musculoskeletal exam: PRESENT: normal inspection. ABSENT: deformity, dislocation Neurological exam: PRESENT: alert, awake, oriented to person, oriented to place Psychiatric exam: PRESENT: anxious, flat affect. ABSENT: agitated Focused psych exam: ABSENT: delusional, paranoid, restlessness Skin exam: PRESENT: dry, normal color, warm Results Laboratory Results: 12/31/19 06:03 01/02/20 04:20 01/02/20 04:20 Sodium 135.5 L Potassium 4.3 Chloride 104 Carbon Dioxide 21 L Anion Gap 11 BUN 18 Creatinine 0.99 Est GFR ( Amer) > 60 Glucose 98 Calcium 9.3 Magnesium 1.8 12/25/19 12/25/19 12/25/19 13:39 13:39 13:39 Creatine Kinase 176 H Cancelled Troponin I 0.068 NT-Pro-B Natriuret Pep 12/25/19 12/26/19 21:27 05:40 Creatine Kinase Troponin I 0.127 0.096 NT-Pro-B Natriuret Pep 818 H Impressions: Chest X-Ray 12/29/19 07:00 IMPRESSION: NO ACUTE RADIOGRAPHIC FINDING IN THE CHEST. Assessment and Plan - Diagnosis (1) Hyponatremia Is this a current diagnosis for this admission?: Yes (2) Acute metabolic encephalopathy Is this a current diagnosis for this admission?: Yes (3) Pneumonia Qualifiers: Pneumonia type: due to unspecified organism Laterality: left Lung location: lower lobe of lung Qualified Code(s): J18.9 - Pneumonia, unspecified organism Is this a current diagnosis for this admission?: Yes (4) Schizophrenia Qualifiers: Schizophrenia type: unspecified Qualified Code(s): F20.9 - Schizophrenia, unspecified Is this a current diagnosis for this admission?: Yes (5) Seizure Is this a current diagnosis for this admission?: Yes (6) Hypertension Is this a current diagnosis for this admission?: Yes (7) Tobacco abuse Is this a current diagnosis for this admission?: Yes - Plan Summary Summary: 12/31/2019 Patient is improved Hyponatremia-serum sodium is up to 134. 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 Continue to monitor intake and output. Continue to monitor sodium levels. Continue fluid restriction. Once his serum sodium is in the normal range we could slightly increase his fluid intake. Acute encephalopathy-secondary to infection and the hyponatremia. Per previous progress notes he does seem to be at his baseline. He has been out of restraints for greater than 24 hours. Continue to monitor. Pneumonia-antibiotics were stopped after 3 to 4 days. The patient is stable. Not sure if this was in fact an aspiration episode. We will continue to monitor CBC and vital signs. Schizophrenia-appreciate psychiatry's input. Current regimen appears to be w orking. Continue same. Hypertension-blood pressure is increased today. I believe he just resumed his diltiazem, lisinopril and hydralazine. We will continue current medications and monitor blood pressures. Adjust medications accordingly. 01/01/2020 Sodium was 134 yesterday. Will recheck tomorrow. Encephalopathy resolved. Patient appears to be back at baseline. Hypertension-we will increase lisinopril to 20 mg twice a day Schizophrenia-continue current regimen At this point I feel the patient is stable to live in a monitored situation such as a memory care unit. 01/02/2020 Hyponatremia-sodium is up to 135.5. Will recheck on Monday. Schizophrenia-nurse reports that the patient is getting slightly agitated. He pulled his IV out. He is refusing medications. I will order Geodon intr amuscularly if absolutely necessary. Hypertension-blood pressure still high. Will discontinue the nitroglycerin. Increase diltiazem to 360 mg and hydralazine to 25 mg every 8 hours. Continue regular vital signs. - Time Time Spent with patient: 35 or more minutes Medications reviewed and adjusted accordingly: Yes Anticipated Discharge Disposition: [facility] Anticipated Discharge Timeframe: Unknown
[2020-01-02] MEDS: HYDRALAZINE HCL 25 MG TABLET PO SCH (21:40)
[2020-01-03] MEDS: HYDRALAZINE HCL 25 MG TABLET PO SCH ×3 (05:46→21:42)
[2020-01-03] MEDS: DIVALPROEX SODIUM 250 MG TABLET.DR PO SCH ×3 (05:46→21:42)
[2020-01-03] MEDS: PANTOPRAZOLE SODIUM 20 MG TABLET.DR PO SCH (05:46)
[2020-01-03] MEDS: HEPARIN SOD (PORCINE) 5,000 UNIT/ML 1 ML VIAL SUBCUT SCH ×3 (05:46→21:43)
[2020-01-03] MEDS: FLUTICASONE/VILANTEROL 200-25 MCG/DOSE IH SCH (09:50)
[2020-01-03] MEDS: LISINOPRIL 10 MG TABLET PO SCH ×2 (09:50→21:42)
[2020-01-03] MEDS: NICOTINE 21 MG/24 HR PATCH.TD24 TD SCH (09:50)
[2020-01-03] MEDS: BUSPIRONE HCL 10 MG TABLET PO SCH ×2 (09:51→21:42)
[2020-01-03] MEDS: FINASTERIDE 5 MG TABLET PO SCH (09:51)
[2020-01-03] MEDS: DILTIAZEM HCL 180 MG CAPSULE.CR PO SCH (09:51)
--- NOTE | 2020-01-03 10:40 | PDOC PROGRESS REPORT ---
Subjective Progress Note for:: 01/03/20 Subjective:: The patient had a quiet night and quiet morning per the sitter. Awakens easily with verbal stimulation. After a brief verbal interaction he did close his eyes to rest again. Reason For Visit: HYPONATREMIA Physical Exam Vital Signs: Temp Pulse Resp BP Pulse Ox 97.7 F 84 18 143/80 H 97 01/03/20 07:53 01/03/20 07:53 01/03/20 07:53 01/03/20 07:53 01/03/20 07:53 Intake & Output 01/02/20 01/03/20 01/04/20 06:59 06:59 06:59 Intake Total 622 Output Total 650 300 Balance -28 -300 Weight 83.4 kg 82 kg General appearance: PRESENT: no acute distress, cooperative - He did close his eyes to rest after a brief interaction, well-developed Head exam: PRESENT: atraumatic, normocephalic Respiratory exam: PRESENT: clear to auscultation alan, symmetrical, unlabored. ABSENT: rales, rhonchi, tachypnea, wheezes Cardiovascular exam: PRESENT: RRR, +S1, +S2. ABSENT: bradycardia, diastolic murmur, irregular rhythm, systolic murmur, tachycardia GI/Abdominal exam: PRESENT: normal bowel sounds, soft. ABSENT: distended, guarding, tenderness Rectal exam: PRESENT: deferred Gentrourinary exam: ABSENT: indwelling catheter Extremities exam: ABSENT: pedal edema Musculoskeletal exam: PRESENT: normal inspection. ABSENT: deformity, dislocation Neurological exam: PRESENT: awake, oriented to person, oriented to place. ABSENT: alert - As noted above interacted verbally initially then closed his eyes to rest Psychiatric exam: PRESENT: flat affect. ABSENT: agitated, anxious Focused psych exam: ABSENT: delusional, paranoid, restlessness Skin exam: PRESENT: dry, normal color, warm. ABSENT: rash Results Laboratory Results: 12/31/19 06:03 01/02/20 04:20 12/25/19 12/25/19 12/25/19 13:39 13:39 13:39 Creatine Kinase 176 H Cancelled Troponin I 0.068 NT-Pro-B Natriuret Pep 12/25/19 12/26/19 21:27 05:40 Creatine Kinase Troponin I 0.127 0.096 NT-Pro-B Natriuret Pep 818 H Impressions: Chest X-Ray 12/29/19 07:00 IMPRESSION: NO ACUTE RADIOGRAPHIC FINDING IN THE CHEST. Assessment and Plan - Diagnosis (1) Hyponatremia Is this a current diagnosis for this admission?: Yes (2) Acute metabolic encephalopathy Is this a current diagnosis for this admission?: Yes (3) Pneumonia Qualifiers: Pneumonia type: due to unspecified organism Laterality: left Lung location: lower lobe of lung Qualified Code(s): J18.9 - Pneumonia, unspecified organism Is this a current diagnosis for this admission?: Yes (4) Schizophrenia Qualifiers: Schizophrenia type: unspecified Qualified Code(s): F20.9 - Schizophrenia, unspecified Is this a current diagnosis for this admission?: Yes (5) Seizure Is this a current diagnosis for this admission?: Yes (6) Hypertension Is this a current diagnosis for this admission?: Yes (7) Tobacco abuse Is this a current diagnosis for this admission?: Yes - Plan Summary Summary: 12/31/2019 Patient is improved Hyponatremia-serum sodium is up to 134. 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 Continue to monitor intake and output. Continue to monitor sodium levels. Continue fluid restriction. Once his serum sodium is in the normal range we could slightly increase his fluid intake. Acute encephalopathy-secondary to infection and the hyponatremia. Per previous progress notes he does seem to be at his baseline. He has been out of restraints for greater than 24 hours. Continue to monitor. Pneumonia-antibiotics were stopped after 3 to 4 days. The patient is stable. Not sure if this was in fact an aspiration episode. We will continue to monitor CBC and vital signs. Schizophrenia-appreciate psychiatry's input. Current regimen appears to be working. Continue same. Hypertension-blood pressure is increased today. I believe he just resumed his diltiazem, lisinopril and hydralazine. We will continue current medications and monitor blood pressures. Adjust medications accordingly. 01/01/2020 Sodium was 134 yesterday. Will recheck tomorrow. Encephalopathy resolved. Patient appears to be back at baseline. Hypertension-we will increase lisinopril to 20 mg twice a day Schizophrenia-continue current regimen At this point I feel the patient is stable to live in a monitored situation such as a memory care unit. 01/02/2020 Hyponatremia-sodium is up to 135.5. Will recheck on Monday. Schizophrenia-nurse reports that the patient is getting slightly agitated. He pulled his IV out. He is refusing medications. I will order Geodon intramuscularly if absolutely necessary. Hypertension-blood pressure still high. Will discontinue the nitroglycerin. Increase diltiazem to 360 mg and hydralazine to 25 mg every 8 hours. Continue regular vital signs. 01/03/2020 Hypertension-blood pressures are better with medication adjustments. Continue to monitor vital signs. Hyponatremia-sodium is just about normal. We will recheck labs tomorrow. Continue fluid restriction. No evidence of nicotine withdrawal Schizophrenia-doing reasonably well. No reports from the sitter about agitation or aggressive behavior. Awaiting placement in a memory care facility - Time Time Spent with patient: Less than 15 minutes Medications reviewed and adjusted accordingly: Yes Anticipated Discharge Disposition: [facility] Anticipated Discharge Timeframe: when bed available
[2020-01-03] MEDS: GABAPENTIN 300 MG CAPSULE PO SCH (12:32)
[2020-01-04 05:08] LABS: HEMATOCRIT 37.6 % (37.9-51.0); MEAN CORPUSCULAR HEMOGLOBIN 30.1 pg (27.0-33.4); MEAN CORPUSCULAR HGB CONC 34.5 g/dL (32.0-36.0); MEAN CORPUSCULAR VOLUME 87 fl (80-97); PLATELET COUNT 288 10^3/uL (150-450); RED BLOOD COUNT 4.32 10^6/uL (4.35-5.55); RED CELL DISTRIBUTION WIDTH 15.3 % (11.5-14.0); WHITE BLOOD COUNT 12.1 10^3/uL (4.0-10.5)
[2020-01-04] MEDS: HEPARIN SOD (PORCINE) 5,000 UNIT/ML 1 ML VIAL SUBCUT SCH ×3 (05:26→21:17)
[2020-01-04] MEDS: DIVALPROEX SODIUM 250 MG TABLET.DR PO SCH ×3 (05:29→21:24)
[2020-01-04] MEDS: PANTOPRAZOLE SODIUM 20 MG TABLET.DR PO SCH (05:29)
[2020-01-04] MEDS: HYDRALAZINE HCL 25 MG TABLET PO SCH ×3 (05:29→21:24)
[2020-01-04 05:32] LABS: ALBUMIN 3.8 g/dL (3.5-5.0); ALKALINE PHOSPHATASE 72 U/L (38-126); ANION GAP 11 (5-19); ASPARTATE AMINO TRANSFERASE 20 U/L (17-59); BILIRUBIN,DIRECT 0.2 mg/dL (0.0-0.4); BILIRUBIN,TOTAL 0.5 mg/dL (0.2-1.3); BLOOD UREA NITROGEN 27 mg/dL (7-20); CALCIUM 9.2 mg/dL (8.4-10.2); CARBON DIOXIDE 23 mmol/L (22-30); CHLORIDE 104 mmol/L (98-107); GLUCOSE 96 mg/dL (75-110); POTASSIUM 4.1 mmol/L (3.6-5.0); TOTAL PROTEIN 6.5 g/dL (6.3-8.2)
[2020-01-04] MEDS: DILTIAZEM HCL 180 MG CAPSULE.CR PO SCH (09:59)
[2020-01-04] MEDS: NICOTINE 21 MG/24 HR PATCH.TD24 TD SCH (09:59)
[2020-01-04] MEDS: FINASTERIDE 5 MG TABLET PO SCH (09:59)
[2020-01-04] MEDS: LISINOPRIL 10 MG TABLET PO SCH ×2 (09:59→21:23)
[2020-01-04] MEDS: FLUTICASONE/VILANTEROL 200-25 MCG/DOSE IH SCH (09:59)
[2020-01-04] MEDS: BUSPIRONE HCL 10 MG TABLET PO SCH ×2 (09:59→21:23)
--- NOTE | 2020-01-04 12:39 | PDOC PROGRESS REPORT ---
Subjective Progress Note for:: 01/04/20 Subjective:: The patient has been walking out of the room. He wanted to sit in a chair in the hallway. He then called me to his room and asked me if I thought he looked 54. I said I am not sure. He then told me he was 85. He in fact is 59 years old. We then talked about the fact that he does not have his glasses and that they were at home. When I asked him if someone could bring him he did say his sister but he is not sure what Highway she is on as highways are very important to go places. Reason For Visit: HYPONATREMIA Physical Exam Vital Signs: Temp Pulse Resp BP Pulse Ox 98.3 F 70 16 142/97 H 96 01/04/20 08:41 01/04/20 07:22 01/04/20 07:22 01/04/20 07:22 01/04/20 07:22 Intake & Output 01/03/20 01/04/20 01/05/20 06:59 06:59 06:59 Intake Total 500 Output Total 300 Balance -300 500 Weight 82 kg 82.3 kg General appearance: PRESENT: cooperative, mild distress, well-developed Head exam: PRESENT: atraumatic, normocephalic Ear exam: PRESENT: normal external ear exam. ABSENT: bleeding, drainage Mouth exam: PRESENT: dry mucosa, tongue midline Neck exam: ABSENT: carotid bruit - Somewhat difficult to auscultate as the patient continued to take deep breaths despite me asking him to breathe normal ly., JVD, lymphadenopathy Respiratory exam: PRESENT: clear to auscultation alan, symmetrical, unlabored. ABSENT: prolonged expiratory phas, rales, rhonchi, tachypnea, wheezes Cardiovascular exam: PRESENT: RRR, +S1, +S2. ABSENT: bradycardia, diastolic murmur, irregular rhythm, systolic murmur, tachycardia GI/Abdominal exam: PRESENT: normal bowel sounds, soft, tenderness - Across the upper abdomen. No tenderness in the lower abdomen., other - Once again when I auscultated the abdomen asked the patient to breathe normally and he continued to take deep breaths as if I were examining his lungs.. ABSENT: distended, guarding Gentrourinary exam: ABSENT: indwelling catheter Extremities exam: PRESENT: full ROM. ABSENT: joint swelling, pedal edema Musculoskeletal exam: PRESENT: normal inspection. ABSENT: deformity, dislocation Neurological exam: PRESENT: alert, awake, oriented to person, CN II-XII grossly intact, other - The patient easily strays off topic. We will introduce spontaneous thoughts during the conversation. He told me he was 85 years old when in fact he is 59. He first asked me if he looks like he is 54 years old. Psychiatric exam: PRESENT: anxious - He is somewhat anxious. At times this morning he was borderline agitated. He settled during this encounter.. ABSENT: agitated Skin exam: PRESENT: other - Multiple sites from phlebotomy Results Laboratory Results: 01/04/20 04:18 01/04/20 04:18 01/04/20 01/04/20 04:18 04:18 WBC 12.1 H RBC 4.32 L Hgb 13.0 L Hct 37.6 L MCV 87 MCH 30.1 MCHC 34.5 RDW 15.3 H Plt Count 288 Sodium 138.1 Potassium 4.1 Chloride 104 Carbon Dioxide 23 Anion Gap 11 BUN 27 H Creatinine 1.12 Est GFR ( Amer) > 60 Glucose 96 Calcium 9.2 Magnesium 1.8 Total Bilirubin 0.5 AST 20 Alkaline Phosphatase 72 Total Protein 6.5 Albumin 3.8 12/25/19 12/25/19 12/25/19 13:39 13:39 13:39 Creatine Kinase 176 H Cancelled Troponin I 0.068 NT-Pro-B Natriuret Pep 12/25/19 12/26/19 21:27 05:40 Creatine Kinase Troponin I 0.127 0.096 NT-Pro-B Natriuret Pep 818 H Impressions: Chest X-Ray 12/29/19 07:00 IMPRESSION: NO ACUTE RADIOGRAPHIC FINDING IN THE CHEST. Assessment and Plan - Diagnosis (1) Hyponatremia Is this a current diagnosis for this admission?: Yes (2) Acute metabolic encephalopathy Is this a current diagnosis for this admission?: Yes (3) Pneumonia Qualifiers: Pneumonia type: due to unspecified organism Laterality: left Lung location: lower lobe of lung Qualified Code(s): J18.9 - Pneumonia, unspecified organism Is this a current diagnosis for this admission?: Yes (4) Schizophrenia Qualifiers: Schizophrenia type: unspecified Qualified Code(s): F20.9 - Schizophrenia, unspecified Is this a current diagnosis for this admission?: Yes (5) Seizure Is this a current diagnosis for this admission?: Yes (6) Hypertension Is this a current diagnosis for this admission?: Yes (7) Tobacco abuse Is this a current diagnosis for this admission?: Yes (8) Abdominal pain Qualifiers: Abdominal location: epigastric Qualified Code(s): R10.13 - Epigastric pain Is this a current diagnosis for this admission?: Yes - Plan Summary Summary: 12/31/2019 Patient is improved Hyponatremia-serum sodium is up to 134. 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 Continue to monitor intake and output. Continue to monitor sodium levels. Continue fluid restriction. Once his serum sodium is in the normal range we could slightly increase his fluid intake. Acute encephalopathy-secondary to infection and the hyponatremia. Per previous progress notes he does seem to be at his baseline. He has been out of restrai nts for greater than 24 hours. Continue to monitor. Pneumonia-antibiotics were stopped after 3 to 4 days. The patient is stable. Not sure if this was in fact an aspiration episode. We will continue to monitor CBC and vital signs. Schizophrenia-appreciate psychiatry's input. Current regimen appears to be working. Continue same. Hypertension-blood pressure is increased today. I believe he just resumed his diltiazem, lisinopril and hydralazine. We will continue current medications and monitor blood pressures. Adjust medications accordingly. 01/01/2020 Sodium was 134 yesterday. Will recheck tomorrow. Encephalopathy resolved. Patient appears to be back at baseline. Hypertension-we will increase lisinopril to 20 mg twice a day Schizophrenia-continue current regimen At this point I feel the patient is stable to live in a monitored situation such as a memory care unit. 01/02/2020 Hyponatremia-sodium is up to 135.5. Will recheck on Monday. Schizophrenia-nurse reports that the patient is getting slightly agitated. He pulled his IV out. He is refusing medications. I will order Geodon intramuscularly if absolutely necessary. Hypertension-blood pressure still high. Will discontinue the nitroglycerin. Increase diltiazem to 360 mg and hydralazine to 25 mg every 8 hours. Continue regular vital signs. 01/03/2020 Hypertension-blood pressures are better with medication adjustments. Continue to monitor vital signs. Hyponatremia-sodium is just about normal. We will recheck labs tomorrow. Continue fluid restriction. No evidence of nicotine withdrawal Schizophrenia-doing reasonably well. No reports from the sitter about agitation or aggressive behavior. Awaiting placement in a memory care facility 01/04/2020 The patient was restless today. He was talking about leaving. With gentle redirection he seems to have settled down. He does have some tangential thoughts. See discussion above. Abdominal pain-today he is complaining of some epigastric discomfort. I told h im we will initiate acid suppression if it is not already started and try a test dose of liquid antacid. Serum sodium is excellent at 138. I will increase his fluid restriction to 1.5 L. Reviewed the case with psychiatry. Will need to have a plan if he opts to try and elope as he did from the [facility]. I will discuss with his mother. He clearly needs placement. - Time Time Spent with patient: 15-24 minutes Medications reviewed and adjusted accordingly: Yes Anticipated Discharge Disposition: [facility] Anticipated Discharge Timeframe: when bed available
[2020-01-04] MEDS: GABAPENTIN 300 MG CAPSULE PO SCH (12:48)
[2020-01-05] MEDS: HEPARIN SOD (PORCINE) 5,000 UNIT/ML 1 ML VIAL SUBCUT SCH ×3 (05:39→22:24)
[2020-01-05] MEDS: DIVALPROEX SODIUM 250 MG TABLET.DR PO SCH ×3 (05:46→22:20)
[2020-01-05] MEDS: PANTOPRAZOLE SODIUM 40 MG TABLET.DR PO SCH (05:46)
[2020-01-05] MEDS: HYDRALAZINE HCL 25 MG TABLET PO SCH ×3 (05:46→22:20)
[2020-01-05] MEDS: DILTIAZEM HCL 180 MG CAPSULE.CR PO SCH (10:12)
[2020-01-05] MEDS: FINASTERIDE 5 MG TABLET PO SCH (10:13)
[2020-01-05] MEDS: BUSPIRONE HCL 10 MG TABLET PO SCH ×2 (10:13→22:20)
[2020-01-05] MEDS: LISINOPRIL 10 MG TABLET PO SCH ×2 (10:13→22:20)
[2020-01-05] MEDS: NICOTINE 21 MG/24 HR PATCH.TD24 TD SCH (10:14)
[2020-01-05] MEDS: FLUTICASONE/VILANTEROL 200-25 MCG/DOSE IH SCH (10:15)
[2020-01-05] MEDS: GABAPENTIN 300 MG CAPSULE PO SCH (13:19)
--- NOTE | 2020-01-05 17:27 | PDOC PROGRESS REPORT ---
Subjective Progress Note for:: 01/05/20 Subjective:: The patient is sleeping in the bed. He awakens easily. He reports that his epigastric discomfort is better. He also feels he did not get enough insulin. This may be because he is not diabetic and has no insulin ordered. He was mumbling a bit today. I did not make any sense of what he was trying to say after the insulin comment. Reason For Visit: HYPONATREMIA Physical Exam Vital Signs: Temp Pulse Resp BP Pulse Ox 98.4 F 80 18 141/98 H 97 01/05/20 16:00 01/05/20 16:00 01/05/20 16:00 01/05/20 16:00 01/05/20 16:00 Intake & Output 01/04/20 01/05/20 01/06/20 06:59 06:59 06:59 Intake Total 500 620 360 Output Total 400 Balance 500 220 360 Weight 82.3 kg 82.3 kg General appearance: PRESENT: cooperative, mild distress, well-developed Head exam: PRESENT: atraumatic, normocephalic Ear exam: PRESENT: normal external ear exam. ABSENT: bleeding, drainage Respiratory exam: PRESENT: clear to auscultation alan, symmetrical, unlabored. ABSENT: rales, rhonchi, tachypnea, wheezes Cardiovascular exam: PRESENT: RRR, +S1, +S2, systolic murmur - 2/6 GI/Abdominal exam: PRESENT: normal bowel sounds, soft. ABSENT: distended, guarding, tenderness Rectal exam: PRESENT: deferred Gentrourinary exam: ABSENT: indwelling catheter Extremities exam: ABSENT: clubbing, pedal edema Musculoskeletal exam: PRESENT: ambulatory, normal inspection. ABSENT: deformity, dislocation Neurological exam: PRESENT: alert, awake, oriented to person. ABSENT: oriented to place Psychiatric exam: ABSENT: agitated - Not agitated during this encounter however nursing reports that during the day he often yells out., anxious Focused psych exam: ABSENT: delusional, paranoid, restlessness Skin exam: PRESENT: dry, normal color, warm. ABSENT: rash Results Laboratory Results: 01/04/20 04:18 01/04/20 04:18 12/25/19 12/25/19 12/25/19 13:39 13:39 13:39 Creatine Kinase 176 H Cancelled Troponin I 0.068 NT-Pro-B Natriuret Pep 12/25/19 12/26/19 21:27 05:40 Creatine Kinase Troponin I 0.127 0.096 NT-Pro-B Natriuret Pep 818 H Impressions: Chest X-Ray 12/29/19 07:00 IMPRESSION: NO ACUTE RADIOGRAPHIC FINDING IN THE CHEST. Assessment and Plan - Diagnosis (1) Hyponatremia Is this a current diagnosis for this admission?: Yes (2) Acute metabolic encephalopathy Is this a current diagnosis for this admission?: Yes (3) Pneumonia Qualifiers: Pneumonia type: due to unspecified organism Laterality: left Lung location: lower lobe of lung Qualified Code(s): J18.9 - Pneumonia, unspecified organism Is this a current diagnosis for this admission?: Yes (4) Schizophrenia Qualifiers: Schizophrenia type: unspecified Qualified Code(s): F20.9 - Schizophrenia, unspecified Is this a current diagnosis for this admission?: Yes (5) Seizure Is this a current diagnosis for this admission?: Yes (6) Hypertension Is this a current diagnosis for this admission?: Yes (7) Tobacco abuse Is this a current diagnosis for this admission?: Yes (8) Abdominal pain Qualifiers: Abdominal location: epigastric Qualified Code(s): R10.13 - Epigastric pain Is this a current diagnosis for this admission?: Yes - Plan Summary Summary: 12/31/2019 Patient is improved Hyponatremia-serum sodium is up to 134. 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 Continue to monitor intake and output. Continue to monitor sodium levels. Continue fluid restriction. Once his serum sodium is in the normal range we could slightly increase his fluid intake. Acute encephalopathy-secondary to infection and the hyponatremia. Per previous progress notes he does seem to be at his baseline. He has been out of restraints for greater than 24 hours. Continue to monitor. Pneumonia-antibiotics were stopped after 3 to 4 days. The patient is stable. Not sure if this was in fact an aspiration episode. We will continue to monitor CBC and vital signs. Schizophrenia-appreciate psychiatry's input. Current regimen appears to be working. Continue same. Hypertension-blood pressure is increased today. I believe he just resumed his diltiazem, lisinopril and hydralazine. We will continue current medications and monitor blood pressures. Adjust medications accordingly. 01/01/2020 Sodium was 134 yesterday. Will recheck tomorrow. Encephalopathy resolved. Patient appears to be back at baseline. Hypertension-we will increase lisinopril to 20 mg twice a day Schizophrenia-continue current regimen At this point I feel the patient is stable to live in a monitored situation such as a memory care unit. 01/02/2020 Hyponatremia-sodium is up to 135.5. Will recheck on Monday. Schizophrenia-nurse reports that the patient is getting slightly agitated. He pulled his IV out. He is refusing medications. I will order Geodon intramuscularly if absolutely necessary. Hypertension-blood pressure still high. Will discontinue the nitroglycerin. Increase diltiazem to 360 mg and hydralazine to 25 mg every 8 hours. Continue regular vital signs. 01/03/2020 Hypertension-blood pressures are better with medication adjustments. Continue to monitor vital signs. Hyponatremia-sodium is just about normal. We will recheck labs tomorrow. Continue fluid restriction. No evidence of nicotine withdrawal Schizophrenia-doing reasonably well. No reports from the sitter about agitation or aggressive behavior. Awaiting placement in a memory care facility 01/04/2020 The patient was restless today. He was talking about leaving. With gentle redirection he seems to have settled down. He does have some tangential thoughts. See discussion above. Abdominal pain-today he is complaining of some epigastric discomfort. I told him we will initiate acid suppression if it is not already started and try a test dose of liquid antacid. Serum sodium is excellent at 138. I will increase his fluid restriction to 1.5 L. Reviewed the case with psychiatry. Will need to have a plan if he opts to try and elope as he did from the [facility]. I will discuss with his mother. He clearly needs placement. 01/05/2020 Awakens easily today with no agitation. Abdominal pain is reported to be better. Continue acid suppression. Serum sodium yesterday was normal. Recheck labs tomorrow. Awaiting placement. - Time Time Spent with patient: Less than 15 minutes Medications reviewed and adjusted accordingly: Yes Anticipated Discharge Disposition: [facility] Anticipated Discharge Timeframe: when bed available
[2020-01-06] MEDS: HYDRALAZINE HCL 25 MG TABLET PO SCH ×3 (05:53→22:09)
[2020-01-06] MEDS: DIVALPROEX SODIUM 250 MG TABLET.DR PO SCH ×3 (05:53→22:09)
[2020-01-06] MEDS: PANTOPRAZOLE SODIUM 40 MG TABLET.DR PO SCH ×2 (05:54→17:46)
[2020-01-06] MEDS: HEPARIN SOD (PORCINE) 5,000 UNIT/ML 1 ML VIAL SUBCUT SCH ×2 (05:54→13:53)
[2020-01-06] MEDS: FLUTICASONE/VILANTEROL 200-25 MCG/DOSE IH SCH (09:09)
[2020-01-06] MEDS: DILTIAZEM HCL 180 MG CAPSULE.CR PO SCH (09:09)
[2020-01-06] MEDS: LISINOPRIL 10 MG TABLET PO SCH ×2 (09:09→22:09)
[2020-01-06] MEDS: BUSPIRONE HCL 10 MG TABLET PO SCH ×2 (09:09→22:09)
[2020-01-06] MEDS: FINASTERIDE 5 MG TABLET PO SCH (09:09)
[2020-01-06] MEDS: NICOTINE 21 MG/24 HR PATCH.TD24 TD SCH (09:10)
[2020-01-06] MEDS: GABAPENTIN 300 MG CAPSULE PO SCH (12:00)
--- NOTE | 2020-01-06 12:04 | PDOC PROGRESS REPORT ---
Subjective Progress Note for:: 01/06/20 Subjective:: The patient is sitting at the edge of the bed. He was just calling out. He does this intermittently through the day. He is having difficulty with his lunch. He feels he is having trouble digesting. We discussed the possibility of increasing his acid suppression and altering his diet to precut meats. Reason For Visit: HYPONATREMIA Physical Exam Vital Signs: Temp Pulse Resp BP Pulse Ox 98.4 F 86 19 113/79 98 01/06/20 11:57 01/06/20 11:57 01/06/20 11:57 01/06/20 11:57 01/06/20 11:57 Intake & Output 01/05/20 01/06/20 01/07/20 06:59 06:59 06:59 Intake Total 620 620 Output Total 400 175 Balance 220 445 Weight 82.3 kg 82.3 kg General appearance: PRESENT: cooperative, mild distress - Appears to be in mild distress, well-developed Head exam: PRESENT: atraumatic, normocephalic Ear exam: PRESENT: normal external ear exam. ABSENT: bleeding, drainage Mouth exam: PRESENT: moist, tongue midline Respiratory exam: PRESENT: clear to auscultation alan, prolonged expiratory phas, symmetrical, unlabored. ABSENT: rales, rhonchi, tachypnea, wheezes Cardiovascular exam: PRESENT: RRR, +S1, +S2. ABSENT: bradycardia, diastolic murmur, irregular rhythm, systolic murmur, tachycardia GI/Abdominal exam: PRESENT: normal bowel sounds, soft, tenderness - Epigastric area. ABSENT: distended, guarding Rectal exam: PRESENT: deferred Gentrourinary exam: ABSENT: indwelling catheter Extremities exam: ABSENT: pedal edema Neurological exam: PRESENT: alert, awake, oriented to person Psychiatric exam: PRESENT: flat affect. ABSENT: agitated - He is not agitated at this encounter, anxious Results Laboratory Results: 01/04/20 04:18 01/04/20 04:18 12/25/19 12/25/19 12/25/19 13:39 13:39 13:39 Creatine Kinase 176 H Cancelled Troponin I 0.068 NT-Pro-B Natriuret Pep 12/25/19 12/26/19 21:27 05:40 Creatine Kinase Troponin I 0.127 0.096 NT-Pro-B Natriuret Pep 818 H Impressions: Chest X-Ray 12/29/19 07:00 IMPRESSION: NO ACUTE RADIOGRAPHIC FINDING IN THE CHEST. Assessment and Plan - Diagnosis (1) Hyponatremia Is this a current diagnosis for this admission?: Yes (2) Acute metabolic encephalopathy Is this a current diagnosis for this admission?: Yes (3) Pneumonia Qualifiers: Pneumonia type: due to unspecified organism Laterality: left Lung location: lower lobe of lung Qualified Code(s): J18.9 - Pneumonia, unspecified organism Is this a current diagnosis for this admission?: Yes (4) Schizophrenia Qualifiers: Schizophrenia type: unspecified Qualified Code(s): F20.9 - Schizophrenia, unspecified Is this a current diagnosis for this admission?: Yes (5) Seizure Is this a current diagnosis for this admission?: Yes (6) Hypertension Is this a current diagnosis for this admission?: Yes (7) Tobacco abuse Is this a current diagnosis for this admission?: Yes (8) Abdominal pain Qualifiers: Abdominal location: epigastric Qualified Code(s): R10.13 - Epigastric pain Is this a current diagnosis for this admission?: Yes - Plan Summary Summary: 12/31/2019 Patient is improved Hyponatremia-serum sodium is up to 134. 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 Continue to monitor intake and output. Continue to monitor sodium levels. Continue fluid restriction. Once his serum sodium is in the normal range we could slightly increase his fluid intake. Acute encephalopathy-secondary to infection and the hyponatremia. Per previous progress notes he does seem to be at his baseline. He has been out of restraints for greater than 24 hours. Continue to monitor. Pneumonia-antibiotics were stopped after 3 to 4 days. The patient is stable. Not sure if this was in fact an aspiration episode. We will continue to monitor CBC and vital signs. Schizophrenia-appreciate psychiatry's input. Current regimen appears to be working. Continue same. Hypertension-blood pressure is increased today. I believe he just resumed his diltiazem, lisinopril and hydralazine. We will continue current medications and monitor blood pressures. Adjust medications accordingly. 01/01/2020 Sodium was 134 yesterday. Will recheck tomorrow. Encephalopathy resolved. Patient appears to be back at baseline. Hypertension-we will increase lisinopril to 20 mg twice a day Schizophrenia-continue current regimen At this point I feel the patient is stable to live in a monitored situation such as a memory care unit. 01/02/2020 Hyponatremia-sodium is up to 135.5. Will recheck on Monday. Schizophrenia-nurse reports that the patient is getting slightly agitated. He pulled his IV out. He is refusing medications. I will order Geodon intramuscularly if absolutely necessary. Hypertension-blood pressure still high. Will discontinue the nitroglycerin. Increase diltiazem to 360 mg and hydralazine to 25 mg every 8 hours. Continue regular vital signs. 01/03/2020 Hypertension-blood pressures are better with medication adjustments. Continue to monitor vital signs. Hyponatremia-sodium is just about normal. We will recheck labs tomorrow. Continue fluid restriction. No evidence of nicotine withdrawal Schizophrenia-doing reasonably well. No reports from the sitter about agitation or aggressive behavior. Awaiting placement in a memory care facility 01/04/2020 The patient was restless today. He was talking about leaving. With gentle redirection he seems to have settled down. He does have some tangential thoughts. See discussion above. Abdominal pain-today he is complaining of some epigastric discomfort. I told him we will initiate acid suppression if it is not already started and try a test dose of liquid antacid. Serum sodium is excellent at 138. I will increase his fluid restriction to 1.5 L. Reviewed the case with psychiatry. Will need to have a plan if he opts to try and elope as he did from the [facility]. I will discuss with his mot her. He clearly needs placement. 01/05/2020 Awakens easily today with no agitation. Abdominal pain is reported to be better. Continue acid suppression. Serum sodium yesterday was normal. Recheck labs tomorrow. Awaiting placement. 01/06/2020 Increase Protonix to 40 mg twice a day. Change diet to mechanical soft with cut meats Serum chemistries are pending. Awaiting placement. I did call the patient's mother. I had to leave a message. I updated her on his condition including a little bit of epigastric discomfort and the fact that his serum sodium is better. - Time Time Spent with patient: Less than 15 minutes Medications reviewed and adjusted accordingly: Yes Anticipated Discharge Disposition: [facility] Anticipated Discharge Timeframe: when bed available
[2020-01-06 13:12] LABS: ABSOLUTE BASOPHILS # (AUTO) 0.3 10^3/uL (0.0-0.2); ABSOLUTE EOSINOPHILS # (AUTO) 0.4 10^3/uL (0.0-0.6); ABSOLUTE LYMPHOCYTES (AUTO) 1.4 10^3/uL (0.5-4.7); ABSOLUTE MONOCYTES (AUTO) 0.6 10^3/uL (0.1-1.4); ABSOLUTE NEUT (AUTO) 8.4 10^3/uL (1.7-8.2); BASOPHILS % (AUTO) 2.4 % (0-2); EOSINOPHILS % (AUTO) 3.4 % (0-6); HEMATOCRIT 41.2 % (37.9-51.0); HEMOGLOBIN 14.2 g/dL (13.5-17.0); LYMPHOCYTES % (AUTO) 12.3 % (13-45); MEAN CORPUSCULAR HEMOGLOBIN 30.6 pg (27.0-33.4); MEAN CORPUSCULAR HGB CONC 34.5 g/dL (32.0-36.0); MEAN CORPUSCULAR VOLUME 89 fl (80-97); MONOCYTES % (AUTO) 5.5 % (3-13); PLATELET COUNT 273 10^3/uL (150-450); RED BLOOD COUNT 4.65 10^6/uL (4.35-5.55); RED CELL DISTRIBUTION WIDTH 15.2 % (11.5-14.0); SEGMENTED NEUTROPHILS % (AUTO) 76.4 % (42-78); TOTAL CELLS COUNTED % (AUTO) 100 %
[2020-01-06 13:32] LABS: ANION GAP 13 (5-19); BLOOD UREA NITROGEN 28 mg/dL (7-20); CALCIUM 9.6 mg/dL (8.4-10.2); CARBON DIOXIDE 21 mmol/L (22-30); CHLORIDE 102 mmol/L (98-107); GLUCOSE 135 mg/dL (75-110); POTASSIUM 4.6 mmol/L (3.6-5.0)
[2020-01-07] MEDS: HEPARIN SOD (PORCINE) 5,000 UNIT/ML 1 ML VIAL SUBCUT SCH ×4 (00:04→21:29)
[2020-01-07] MEDS: DIVALPROEX SODIUM 250 MG TABLET.DR PO SCH ×3 (05:13→21:28)
[2020-01-07] MEDS: PANTOPRAZOLE SODIUM 40 MG TABLET.DR PO SCH ×2 (05:13→16:42)
[2020-01-07] MEDS: HYDRALAZINE HCL 25 MG TABLET PO SCH ×3 (05:13→21:28)
[2020-01-07] MEDS: NICOTINE 21 MG/24 HR PATCH.TD24 TD SCH (09:08)
[2020-01-07] MEDS: FLUTICASONE/VILANTEROL 200-25 MCG/DOSE IH SCH (09:08)
[2020-01-07] MEDS: BUSPIRONE HCL 10 MG TABLET PO SCH ×2 (09:08→21:28)
[2020-01-07] MEDS: LISINOPRIL 10 MG TABLET PO SCH ×2 (09:09→21:28)
[2020-01-07] MEDS: FINASTERIDE 5 MG TABLET PO SCH (09:09)
[2020-01-07] MEDS: DILTIAZEM HCL 180 MG CAPSULE.CR PO SCH (09:09)
--- NOTE | 2020-01-07 11:13 | PDOC PROGRESS REPORT ---
Subjective Subjective:: 59 year old male with history of schizophrenia, gastroparesis reflux disease, COPD, history of hyponatremia was brought to the emergency room after he was found leaning up to both ears after walking for [address] he was an escape from [facility] and was placed on missing person file. Work-up in the ER indicates pneumonia, hyponatremia with a serum sodium of 116.8. ER physician discussed the case with Dr. Webb and also with ICU cord maker Dr. Webb was to give 50 mL of 3% normal saline. But ICU attending thinks patient does need to be in ICU does not need to be in 3% normal saline. Dr. arredondo called me for admission. After discussion with Dr. Webb, I requested Dr. Arredondo to give 3% normal saline 50 cc over 1 and half hour. I went to see the patient and he told me patient has a seizure-like activity and is able to give a Keppra. Also found to have a short brief of V. tach in the emergency room. The nurses have a hard time keeping the IV line in and he pulled a couple of IV lines. He was given a Catemine and IV line was accessed and started on 3% normal saline. I am going to admit the patient to IMCU but I requested Dr. arredondo to keep the patient in the ER tonight until mental status and hyponatremia improves. He agreed. pt is unable to give any history. [id number]-old male admitted with hyponatremia questionable seizure activity in the ER brief episode of V. tach in the ER. Patient was given a loading dose of Dilantin 1 g now he is on IV Dilantin 100 mg twice a day. Serum sodium came up to 126 plan is to repeat the chemistry now. Psych consult was requested. Plan is to closely monitor the chemistry and mental status. 12/27/2019-patient admitted with hyponatremia of 116 improved to 126. Today's labs are pending. Possible seizure in the ER and he was given Dilantin loading dose and presently on Dilantin 100 mg p.o. twice a day. Plan is to discontinue IV Dilantin because no seizure activity was noticed in the last 24 hours. Patient is combative agitated and belligerent to give Geodon 20 mg IM. Psych consult was requested. Patient may need to go to inpatient rehab once medically cleared. 01/07/2020-patient is comfortable in the bed not in distress. Waiting for placement. Reason For Visit: HYPONATREMIA Physical Exam Vital Signs: Temp Pulse Resp BP Pulse Ox 98.1 F 83 19 135/81 H 99 01/07/20 10:00 01/07/20 07:27 01/07/20 07:27 01/07/20 07:27 01/07/20 07:27 Intake & Output 01/06/20 01/07/20 01/08/20 06:59 06:59 06:59 Intake Total 620 1230 Output Total 175 Balance 445 1230 Weight 82.3 kg 81.8 kg General appearance: PRESENT: no acute distress, well-developed Head exam: PRESENT: atraumatic Eye exam: PRESENT: PERRLA Mouth exam: PRESENT: moist, tongue midline Teeth exam: PRESENT: poor dentation Neck exam: ABSENT: carotid bruit, JVD, lymphadenopathy, thyromegaly Respiratory exam: PRESENT: decreased breath sounds Cardiovascular exam: PRESENT: RRR. ABSENT: diastolic murmur, rubs, systolic murmur GI/Abdominal exam: PRESENT: normal bowel sounds, soft. ABSENT: distended, guarding, mass, organolmegaly, rebound, tenderness Rectal exam: PRESENT: deferred Extremities exam: PRESENT: full ROM. ABSENT: calf tenderness, clubbing, pedal edema Neurological exam: PRESENT: alert, awake, oriented to person, oriented to place, oriented to time, oriented to situation, CN II-XII grossly intact. ABSENT: motor sensory deficit Psychiatric exam: PRESENT: appropriate affect, normal mood. ABSENT: homicidal ideation, suicidal ideation Skin exam: PRESENT: dry, intact, warm. ABSENT: cyanosis, rash Results Laboratory Results: 01/06/20 12:38 01/06/20 12:38 01/06/20 01/06/20 12:38 12:38 WBC 11.0 H RBC 4.65 Hgb 14.2 Hct 41.2 MCV 89 MCH 30.6 MCHC 34.5 RDW 15.2 H Plt Count 273 Seg Neutrophils % 76.4 Sodium 136.1 L Potassium 4.6 Chloride 102 Carbon Dioxide 21 L Anion Gap 13 BUN 28 H Creatinine 1.29 H Est GFR ( Amer) > 60 Glucose 135 H Calcium 9.6 Magnesium 1.8 Lipase 125.6 12/25/19 12/25/19 12/25/19 13:39 13:39 13:39 Creatine Kinase 176 H Cancelled Troponin I 0.068 NT-Pro-B Natriuret Pep 12/25/19 12/26/19 21:27 05:40 Creatine Kinase Troponin I 0.127 0.096 NT-Pro-B Natriuret Pep 818 H Impressions: Chest X-Ray 12/29/19 07:00 IMPRESSION: NO ACUTE RADIOGRAPHIC FINDING IN THE CHEST. Assessment and Plan - Diagnosis (1) Hyponatremia Is this a current diagnosis for this admission?: Yes Plan: Initially treated in the emergency department with 3% normal saline. Sodium is improved; 116.8-> 123.6-> 126.3-> 124.9-> 127.9-> 129.5-> 129.8-> 133.0 Patient with history of hyponatremia and psychogenic polydipsia. Mental health service consultation obtained; they have reviewed his medication regiment and made recommendations with regard to his recurrent episodes of hyponatremia. Nephrology is consulted; appreciate their assistance and recommendations. Liberalize dietary sodium; regular diet. Fluid restricted 750 mL's daily. Strict I&O's. 01/07/2020-patient is comfortable in the bed communicating well. Hyponatremia is resolved. Waiting for placement. Latest serum sodium is 136. (2) Pneumonia Qualifiers: Pneumonia type: due to unspecified organism Laterality: left Lung location: lower lobe of lung Qualified Code(s): J18.9 - Pneumonia, unspecified organism Is this a current diagnosis for this admission?: Yes Plan: Chest x-ray suggestive of atelectasis versus pneumonia. Unable to determine if this is an aspiration pneumonia, although, it does remain a possible cause due to the patient's altered mentation. Blood cultures (1/4 bottles) grew staph epidermidis; likely contaminant. Sputum culture not obtained. Repeat CXR is clear. Patient remains afebrile with clear lung sounds and maintaining oxygen saturations on room air. Leukocytosis trending down; 14.1-> 12.8 Patient is provided supplemental oxygen as needed maintain saturations greater than 89%. Currently maintaining oxygen saturations on room air. Vancomycin was discontinued day #3, Zosyn discontinued day #4. As needed nebulizer treatments. He is placed on Robitussin as needed. Pulmonary toilet is encouraged with incentive spirometer, flutter valve, early ambulation 01/07/2020-patient is presently not on antibiotics. Afebrile. Blood pressure is stable. WBC count within normal limits. (3) Hypertension Is this a current diagnosis for this admission?: Yes Plan: Uncontrolled blood pressures at present. Home medications have been reconciled; have resumed home dose Diltiazem, lisinopril, and p.o. hydralazine. Patient is inconsistent with oral medications. Clonidine patch removed overnight related to hypotension. Blood pressures remain soft. 01/07/2020-blood pressure is stable. 136/86. Plan is to continue the present management. (4) Altered mental status Is this a current diagnosis for this admission?: Yes Plan: Acute metabolic encephalopathy. Likely multifactorial secondary to hyponatremia, acute illness (left lower lobe pneumonia), in the setting of medication noncompliance and schizophrenia. Gradually improving. Head CT pending Disease specific management as outlined elsewhere. Nursing has been able to remove soft limb restraints today; this afternoon, patient remains calm and cooperative Supportive care. (5) Seizure Is this a current diagnosis for this admission?: Yes Plan: Seizure activity >72 hours Seizure activity noted while in the emergency department. Received loading dose of Dilantin followed by twice daily dosing until the patient has been seizure-free for greater than 48 hours. Have discontinued. Sodium is now improved and no longer a potential cause of seizure activity (12 9.5 today). We will continue seizure precautions and monitor closely. (6) Tobacco abuse Is this a current diagnosis for this admission?: Yes Plan: Daily nicotine patch. - Plan Summary Summary: 12/31/2019 Patient is improved Hyponatremia-serum sodium is up to 134. 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 Continue to monitor intake and output. Continue to monitor sodium levels. Continue fluid restriction. Once his serum sodium is in the normal range we could slightly increase his fluid intake. Acute encephalopathy-secondary to infection and the hyponatremia. Per previous progress notes he does seem to be at his baseline. He has been out of restraints for greater than 24 hours. Continue to monitor. Pneumonia-antibiotics were stopped after 3 to 4 days. The patient is stable. Not sure if this was in fact an aspiration episode. We will continue to monitor CBC and vital signs. Schizophrenia-appreciate psychiatry's input. Current regimen appears to be working. Continue same. Hypertension-blood pressure is increased today. I believe he just resumed his diltiazem, lisinopril and hydralazine. We will continue current medications and monitor blood pressures. Adjust medications accordingly. 01/01/2020 Sodium was 134 yesterday. Will recheck tomorrow. Encephalopathy resolved. Patient appears to be back at baseline. Hypertension-we will increase lisinopril to 20 mg twice a day Schizophrenia-continue current regimen At this point I feel the patient is stable to live in a monitored situation such as a memory care unit. 01/02/2020 Hyponatremia-sodium is up to 135.5. Will recheck on Monday. Schizophrenia-nurse reports that the patient is getting slightly agitated. He pulled his IV out. He is refusing medications. I will order Geodon intramuscularly if absolutely necessary. Hypertension-blood pressure still high. Will discontinue the nitroglycerin. Increase diltiazem to 360 mg and hydralazine to 25 mg every 8 hours. Continue r egular vital signs. 01/03/2020 Hypertension-blood pressures are better with medication adjustments. Continue to monitor vital signs. Hyponatremia-sodium is just about normal. We will recheck labs tomorrow. Continue fluid restriction. No evidence of nicotine withdrawal Schizophrenia-doing reasonably well. No reports from the sitter about agitation or aggressive behavior. Awaiting placement in a memory care facility 01/04/2020 The patient was restless today. He was talking about leaving. With gentle redirection he seems to have settled down. He does have some tangential thoughts. See discussion above. Abdominal pain-today he is complaining of some epigastric discomfort. I told him we will initiate acid suppression if it is not already started and try a test dose of liquid antacid. Serum sodium is excellent at 138. I will increase his fluid restriction to 1.5 L. Reviewed the case with psychiatry. Will need to have a plan if he opts to try and elope as he did from the [facility] facility. I will discuss with his mother. He clearly needs placement. 01/05/2020 Awakens easily today with no agitation. Abdominal pain is reported to be better. Continue acid suppression. Serum sodium yesterday was normal. Recheck labs tomorrow. Awaiting placement. 01/06/2020 Increase Protonix to 40 mg twice a day. Change diet to mechanical soft with cut meats Serum chemistries are pending. Awaiting placement. I did call the patient's mother. I had to leave a message. I updated her on h is condition including a little bit of epigastric discomfort and the fact that his serum sodium is better. - Time Anticipated Discharge Disposition: Psych Hospital/Unit Anticipated Discharge Timeframe: within 72 hours
[2020-01-07] MEDS: RISPERIDONE 0.25 MG TABLET PO PRN (12:57)
[2020-01-07] MEDS: GABAPENTIN 300 MG CAPSULE PO SCH (12:57)
[2020-01-08] MEDS: DIVALPROEX SODIUM 250 MG TABLET.DR PO SCH ×3 (05:42→21:46)
[2020-01-08] MEDS: HYDRALAZINE HCL 25 MG TABLET PO SCH ×3 (05:43→21:44)
[2020-01-08] MEDS: PANTOPRAZOLE SODIUM 40 MG TABLET.DR PO SCH ×2 (05:43→21:43)
[2020-01-08] MEDS: HEPARIN SOD (PORCINE) 5,000 UNIT/ML 1 ML VIAL SUBCUT SCH ×3 (05:48→21:43)
[2020-01-08 06:55] LABS: ABSOLUTE BASOPHILS # (AUTO) 0.2 10^3/uL (0.0-0.2); ABSOLUTE EOSINOPHILS # (AUTO) 0.6 10^3/uL (0.0-0.6); ABSOLUTE LYMPHOCYTES (AUTO) 2.5 10^3/uL (0.5-4.7); ABSOLUTE MONOCYTES (AUTO) 0.9 10^3/uL (0.1-1.4); ABSOLUTE NEUT (AUTO) 9.7 10^3/uL (1.7-8.2); BASOPHILS % (AUTO) 1.2 % (0-2); EOSINOPHILS % (AUTO) 4.4 % (0-6); HEMATOCRIT 39.8 % (37.9-51.0); HEMOGLOBIN 13.8 g/dL (13.5-17.0); LYMPHOCYTES % (AUTO) 17.9 % (13-45); MEAN CORPUSCULAR HEMOGLOBIN 30.4 pg (27.0-33.4); MEAN CORPUSCULAR HGB CONC 34.6 g/dL (32.0-36.0); MEAN CORPUSCULAR VOLUME 88 fl (80-97); MONOCYTES % (AUTO) 6.3 % (3-13); PLATELET COUNT 271 10^3/uL (150-450); RED BLOOD COUNT 4.53 10^6/uL (4.35-5.55); RED CELL DISTRIBUTION WIDTH 15.4 % (11.5-14.0); SEGMENTED NEUTROPHILS % (AUTO) 70.2 % (42-78); TOTAL CELLS COUNTED % (AUTO) 100 %; WHITE BLOOD COUNT 13.8 10^3/uL (4.0-10.5)
[2020-01-08 07:21] LABS: ALBUMIN 3.8 g/dL (3.5-5.0); ALKALINE PHOSPHATASE 69 U/L (38-126); ANION GAP 11 (5-19); ASPARTATE AMINO TRANSFERASE 19 U/L (17-59); BILIRUBIN,DIRECT 0.3 mg/dL (0.0-0.4); BILIRUBIN,TOTAL 0.5 mg/dL (0.2-1.3); BLOOD UREA NITROGEN 33 mg/dL (7-20); CALCIUM 9.8 mg/dL (8.4-10.2); CARBON DIOXIDE 23 mmol/L (22-30); CHLORIDE 102 mmol/L (98-107); GLUCOSE 120 mg/dL (75-110); POTASSIUM 4.4 mmol/L (3.6-5.0); TOTAL PROTEIN 6.5 g/dL (6.3-8.2)
[2020-01-08] MEDS: DILTIAZEM HCL 180 MG CAPSULE.CR PO SCH (09:23)
[2020-01-08] MEDS: BUSPIRONE HCL 10 MG TABLET PO SCH ×2 (09:23→21:58)
[2020-01-08] MEDS: LISINOPRIL 10 MG TABLET PO SCH ×2 (09:23→21:57)
[2020-01-08] MEDS: FLUTICASONE/VILANTEROL 200-25 MCG/DOSE IH SCH (09:23)
[2020-01-08] MEDS: FINASTERIDE 5 MG TABLET PO SCH (09:23)
[2020-01-08] MEDS: NICOTINE 21 MG/24 HR PATCH.TD24 TD SCH (09:24)
--- NOTE | 2020-01-08 11:44 | PDOC PROGRESS REPORT ---
Subjective Progress Note for:: 01/08/20 Subjective:: 59 year old male with history of schizophrenia, gastroparesis reflux disease, COPD, history of hyponatremia was brought to the emergency room after he was found leaning up to both ears after walking for [address] he was an escape from [facility] and was placed on missing person file. Work-up in the ER indicates pneumonia, hyponatremia with a serum sodium of 116.8. ER physician discussed the case with Dr. Webb and also with ICU sales support associate Dr. Webb was to give 50 mL of 3% normal saline. But ICU attending thinks patient does need to be in ICU does not need to be in 3% normal saline. Dr. arredondo called me for admission. After discussion with Dr. Webb, I requested Dr. Arredondo to give 3% normal saline 50 cc over 1 and half hour. I went to see the patient and he told me patient has a seizure-like activity and is able to give a Keppra. Also found to have a short brief of V. tach in the emergency room. The nurses have a hard time keeping the IV line in and he pulled a couple of IV lines. He was given a Catemine and IV line was accessed and started on 3% normal saline. I am going to admit the patient to IMCU but I requested Dr. arredondo to keep the patient in the ER tonight until mental status and hyponatremia improves. He agreed. pt is unable to give any history. 12/[id number]-old male admitted with hyponatremia questionable seizure activity in the ER brief episode of V. tach in the ER. Patient was given a loading dose of Dilantin 1 g now he is on IV Dilantin 100 mg twice a day. Serum sodium came up to 126 plan is to repeat the chemistry now. Psych consult was requested. Plan is to closely monitor the chemistry and mental status. 12/27/2019-patient admitted with hyponatremia of 116 improved to 126. Today's labs are pending. Possible seizure in the ER and he was given Dilantin loading dose and presently on Dilantin 100 mg p.o. twice a day. Plan is to discontinue IV Dilantin because no seizure activity was noticed in the last 24 hours. Patient is combative agitated and belligerent to give Geodon 20 mg IM. Psych consult was requested. Patient may need to go to inpatient rehab once medically cleared. 01/07/2020-patient is comfortable in the bed not in distress. Waiting for placement. 01/08/2020-patient is comfortable in the bed communicating well. Not in distress. Waiting for placement. Reason For Visit: HYPONATREMIA Physical Exam Vital Signs: Temp Pulse Resp BP Pulse Ox 97.5 F 85 20 119/78 98 01/08/20 07:59 01/08/20 07:59 01/08/20 07:59 01/08/20 07:59 01/08/20 07:59 Intake & Output 01/07/20 01/08/20 01/09/20 06:59 06:59 06:59 Intake Total 1230 1670 Output Total 350 Balance 1230 1320 Weight 81.8 kg 84.3 kg General appearance: PRESENT: no acute distress, well-developed Head exam: PRESENT: atraumatic Eye exam: PRESENT: PERRLA Teeth exam: PRESENT: poor dentation Neck exam: ABSENT: carotid bruit, JVD, lymphadenopathy, thyromegaly Respiratory exam: PRESENT: clear to auscultation alan. ABSENT: rales, rhonchi, wheezes Cardiovascular exam: PRESENT: RRR. ABSENT: diastolic murmur, rubs, systolic murmur GI/Abdominal exam: PRESENT: normal bowel sounds, soft. ABSENT: distended, guarding, mass, organolmegaly, rebound, tenderness Rectal exam: PRESENT: deferred Extremities exam: PRESENT: full ROM. ABSENT: calf tenderness, clubbing, pedal edema Neurological exam: PRESENT: alert, awake, oriented to person, oriented to place, oriented to time, oriented to situation, CN II-XII grossly intact. ABSENT: motor sensory deficit Psychiatric exam: PRESENT: appropriate affect, normal mood. ABSENT: homicidal ideation, suicidal ideation Results Laboratory Results: 01/08/20 06:09 01/08/20 06:09 01/08/20 01/08/20 06:09 06:09 WBC 13.8 H RBC 4.53 Hgb 13.8 Hct 39.8 MCV 88 MCH 30.4 MCHC 34.6 RDW 15.4 H Plt Count 271 Seg Neutrophils % 70.2 Sodium 135.5 L Potassium 4.4 Chloride 102 Carbon Dioxide 23 Anion Gap 11 BUN 33 H Creatinine 1.32 H Est GFR ( Amer) > 60 Glucose 120 H Calcium 9.8 Magnesium 2.0 Total Bilirubin 0.5 AST 19 Alkaline Phosphatase 69 Total Protein 6.5 Albumin 3.8 12/25/19 12/25/19 12/25/19 13:39 13:39 13:39 Creatine Kinase 176 H Cancelled Troponin I 0.068 NT-Pro-B Natriuret Pep 12/25/19 12/26/19 21:27 05:40 Creatine Kinase Troponin I 0.127 0.096 NT-Pro-B Natriuret Pep 818 H Impressions: Chest X-Ray 12/29/19 07:00 IMPRESSION: NO ACUTE RADIOGRAPHIC FINDING IN THE CHEST. Assessment and Plan - Diagnosis (1) Hyponatremia Is this a current diagnosis for this admission?: Yes Plan: Initially treated in the emergency department with 3% normal saline. Sodium is improved; 116.8-> 123.6-> 126.3-> 124.9-> 127.9-> 129.5-> 129.8-> 133.0 Patient with history of hyponatremia and psychogenic polydipsia. Mental health service consultation obtained; they have reviewed his medication regiment and made recommendations with regard to his recurrent episodes of hyponatremia. Nephrology is consulted; appreciate their assistance and recommendations. Liberalize dietary sodium; regular diet. Fluid restricted 750 mL's daily. Strict I&O's. 01/07/2020-patient is comfortable in the bed communicating well. Hyponatremia is resolved. Waiting for placement. Latest serum sodium is 136. 01/08/2020-no acute events in the last 24 hours. The serum sodium is 135.5. Stable. (2) Pneumonia Qualifiers: Pneumonia type: due to unspecified organism Laterality: left Lung location: lower lobe of lung Qualified Code(s): J18.9 - Pneumonia, unspecified organism Is this a current diagnosis for this admission?: Yes Plan: Chest x-ray suggestive of atelectasis versus pneumonia. Unable to determine if this is an aspiration pneumonia, although, it does remain a possible cause due to the patient's altered mentation. Blood cultures (1/4 bottles) grew staph epidermidis; likely contaminant. Sputum culture not obtained. Repeat CXR is clear. Patient remains afebrile with clear lung sounds and maintaining oxygen saturations on room air. Leukocytosis trending down; 14.1-> 12.8 Patient is provided supplemental oxygen as needed maintain saturations greater than 89%. Currently maintaining oxygen saturations on room air. Vancomycin was discontinued day #3, Zosyn discontinued day #4. As needed nebulizer treatments. He is placed on Robitussin as needed. Pulmonary toilet is encouraged with incentive spirometer, flutter valve, early ambulation 01/07/2020-patient is presently not on antibiotics. Afebrile. Blood pressure is stable. WBC count within normal limits. (3) Hypertension Is this a current diagnosis for this admission?: No Plan: Uncontrolled blood pressures at present. Home medications have been reconciled; have resumed home dose Diltiazem, lisinopril, and p.o. hydralazine. Patient is inconsistent with oral medications. Clonidine patch removed overnight related to hypotension. Blood pressures remain soft. 01/07/2020-blood pressure is stable. 136/86. Plan is to continue the present management. 01/08/2020-blood pressure today is 119/78. Asymptomatic. Plan is to continue the present management at this time. (4) Altered mental status Is this a current diagnosis for this admission?: Yes Plan: Acute metabolic encephalopathy. Likely multifactorial secondary to hyponatremia, acute illness (left lower lobe pneumonia), in the setting of medication noncompliance and schizophrenia. Gradually improving. Head CT pending Disease specific management as outlined elsewhere. Nursing has been able to remove soft limb restraints today; this afternoon, patient remains calm and cooperative Supportive care. 01/08/2020-altered mental status resolved. Patient is not on restraints.. (5) Seizure Is this a current diagnosis for this admission?: Yes Plan: Seizure activity >72 hours Seizure activity noted while in the emergency department. Received loading dose of Dilantin followed by twice daily dosing until the patient has been seizure-free for greater than 48 hours. Have discontinued. Sodium is now improved and no longer a potential cause of seizure activity (1 29.5 today). We will continue seizure precautions and monitor closely. (6) Tobacco abuse Is this a current diagnosis for this admission?: Yes Plan: Daily nicotine patch. - Plan Summary Summary: 12/31/2019 Patient is improved Hyponatremia-serum sodium is up to 134. 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 Continue to monitor intake and output. Continue to monitor sodium levels. Continue fluid restriction. Once his serum sodium is in the normal range we could slightly increase his fluid intake. Acute encephalopathy-secondary to infection and the hyponatremia. Per previous progress notes he does seem to be at his baseline. He has been out of restraints for greater than 24 hours. Continue to monitor. Pneumonia-antibiotics were stopped after 3 to 4 days. The patient is stable. Not sure if this was in fact an aspiration episode. We will continue to monitor CBC and vital signs. Schizophrenia-appreciate psychiatry's input. Current regimen appears to be working. Continue same. Hypertension-blood pressure is increased today. I believe he just resumed his diltiazem, lisinopril and hydralazine. We will continue current medications and monitor blood pressures. Adjust medications accordingly. 01/01/2020 Sodium was 134 yesterday. Will recheck tomorrow. Encephalopathy resolved. Patient appears to be back at baseline. Hypertension-we will increase lisinopril to 20 mg twice a day Schizophrenia-continue current regimen At this point I feel the patient is stable to live in a monitored situation such as a memory care unit. 01/02/2020 Hyponatremia-sodium is up to 135.5. Will recheck on Monday. Schizophrenia-nurse reports that the patient is getting slightly agitated. He pulled his IV out. He is refusing medications. I will order Geodon intramuscularly if absolutely necessary. Hypertension-blood pressure still high. Will discontinue the nitroglycerin. Increase diltiazem to 360 mg and hydralazine to 25 mg every 8 hours. Continue regular vital signs. 01/03/2020 Hypertension-blood pressures are better with medication adjustments. Continue to monitor vital signs. Hyponatremia-sodium is just about normal. We will recheck labs tomorrow. Continue fluid restriction. No evidence of nicotine withdrawal Schizophrenia-doing reasonably well. No reports from the sitter about agitation or aggressive behavior. Awaiting placement in a memory care facility 01/04/2020 The patient was restless today. He was talking about leaving. With gentle redirection he seems to have settled down. He does have some tangential thoughts. See discussion above. Abdominal pain-today he is complaining of some epigastric discomfort. I told him we will initiate acid suppression if it is not already started and try a test dose of liquid antacid. Serum sodium is excellent at 138. I will increase his fluid restriction to 1.5 L. Reviewed the case with psychiatry. Will need to have a plan if he opts to try and elope as he did from the [facility]. I will discuss with his mother. He clearly needs placement. 01/05/2020 Awakens easily today with no agitation. Abdominal pain is reported to be better. Continue acid suppression. Serum sodium yesterday was normal. Recheck labs tomorrow. Awaiting placement. 01/06/2020 Increase Protonix to 40 mg twice a day. Change diet to mechanical soft with cut meats Serum chemistries are pending. Awaiting placement. I did call the patient's mother. I had to leave a message. I updated her on his condition including a little bit of epigastric discomfort and the fact that his serum sodium is better. - Time Anticipated Discharge Disposition: Psych Hospital/Unit Anticipated Discharge Timeframe: within 48 hours
[2020-01-08] MEDS: GABAPENTIN 300 MG CAPSULE PO SCH (13:02)
[2020-01-09] MEDS: HYDRALAZINE HCL 25 MG TABLET PO SCH ×3 (06:18→21:23)
[2020-01-09] MEDS: PANTOPRAZOLE SODIUM 40 MG TABLET.DR PO SCH ×2 (06:18→17:20)
[2020-01-09] MEDS: DIVALPROEX SODIUM 250 MG TABLET.DR PO SCH ×3 (06:18→21:23)
[2020-01-09] MEDS: HEPARIN SOD (PORCINE) 5,000 UNIT/ML 1 ML VIAL SUBCUT SCH ×3 (06:21→21:24)
--- NOTE | 2020-01-09 08:54 | PDOC PROGRESS REPORT ---
Subjective Progress Note for:: 01/09/20 Subjective:: 59 year old male with history of schizophrenia, gastroparesis reflux disease, COPD, history of hyponatremia was brought to the emergency room after he was found leaning up to both ears after walking for [address] he was an escape from [facility] and was placed on missing person file. Work-up in the ER indicates pneumonia, hyponatremia with a serum sodium of 116.8. ER physician discussed the case with Dr. Webb and also with ICU atm servicer Dr. Webb was to give 50 mL of 3% normal saline. But ICU attending thinks patient does need to be in ICU does not need to be in 3% normal saline. Dr. arredondo called me for admission. After discussion with Dr. Webb, I requested Dr. Arredondo to give 3% normal saline 50 cc over 1 and half hour. I went to see the patient and he told me patient has a seizure-like activity and is able to give a Keppra. Also found to have a short brief of V. tach in the emergency room. The nurses have a hard time keeping the IV line in and he pulled a couple of IV lines. He was given a Catemine and IV line was accessed and started on 3% normal saline. I am going to admit the patient to IMCU but I requested Dr. arredondo to keep the patient in the ER tonight until mental status and hyponatremia improves. He agreed. pt is unable to give any history. [id number]-old male admitted with hyponatremia questionable seizure activity in the ER brief episode of V. tach in the ER. Patient was given a loading dose of Dilantin 1 g now he is on IV Dilantin 100 mg twice a day. Serum sodium came up to 126 plan is to repeat the chemistry now. Psych consult was requested. Plan is to closely monitor the chemistry and mental status. 12/27/2019-patient admitted with hyponatremia of 116 improved to 126. Today's labs are pending. Possible seizure in the ER and he was given Dilantin loading dose and presently on Dilantin 100 mg p.o. twice a day. Plan is to discontinue IV Dilantin because no seizure activity was noticed in the last 24 hours. Patient is combative agitated and belligerent to give Geodon 20 mg IM. Psych consult was requested. Patient may need to go to inpatient rehab once medically cleared. 01/07/2020-patient is comfortable in the bed not in distress. Waiting for placement. 01/08/2020-patient is comfortable in the bed communicating well. Not in distress. Waiting for placement. 01/09/2020-patient is comfortable in the bed not in distress. Watching TV. Denies any problems. Waiting for placement. Reason For Visit: HYPONATREMIA Physical Exam Vital Signs: Temp Pulse Resp BP Pulse Ox 98.4 F 86 16 115/75 97 01/09/20 07:45 01/09/20 07:45 01/09/20 07:45 01/09/20 07:45 01/09/20 07:45 Intake & Output 01/08/20 01/09/20 01/10/20 06:59 06:59 06:59 Intake Total 1670 260 Output Total 350 100 Balance 1320 160 Weight 84.3 kg 82.7 kg General appearance: PRESENT: no acute distress, well-developed Head exam: PRESENT: atraumatic Eye exam: PRESENT: PERRLA Mouth exam: PRESENT: moist, tongue midline Teeth exam: PRESENT: poor dentation Neck exam: ABSENT: carotid bruit, JVD, lymphadenopathy, thyromegaly Respiratory exam: PRESENT: decreased breath sounds Cardiovascular exam: PRESENT: RRR. ABSENT: diastolic murmur, rubs, systolic murmur GI/Abdominal exam: PRESENT: normal bowel sounds, soft. ABSENT: distended, guarding, mass, organolmegaly, rebound, tenderness Rectal exam: PRESENT: deferred Extremities exam: PRESENT: full ROM. ABSENT: calf tenderness, clubbing, pedal edema Neurological exam: PRESENT: alert, awake, oriented to person, oriented to place, oriented to time, oriented to situation, CN II-XII grossly intact. ABSENT: motor sensory deficit Results Laboratory Results: 01/08/20 06:09 01/08/20 06:09 12/25/19 12/25/19 12/25/19 13:39 13:39 13:39 Creatine Kinase 176 H Cancelled Troponin I 0.068 NT-Pro-B Natriuret Pep 12/25/19 12/26/19 21:27 05:40 Creatine Kinase Troponin I 0.127 0.096 NT-Pro-B Natriuret Pep 818 H Impressions: Chest X-Ray 12/29/19 07:00 IMPRESSION: NO ACUTE RADIOGRAPHIC FINDING IN THE CHEST. Assessment and Plan - Diagnosis (1) Hyponatremia Is this a current diagnosis for this admission?: Yes Plan: Initially treated in the emergency department with 3% normal saline. Sodium is improved; 116.8-> 123.6-> 126.3-> 124.9-> 127.9-> 129.5-> 129.8-> 133.0 Patient with history of hyponatremia and psychogenic polydipsia. Mental health service consultation obtained; they have reviewed his medication regiment and made recommendations with regard to his recurrent episodes of hypon atremia. Nephrology is consulted; appreciate their assistance and recommendations. Liberalize dietary sodium; regular diet. Fluid restricted 750 mL's daily. Strict I&O's. 01/07/2020-patient is comfortable in the bed communicating well. Hyponatremia is resolved. Waiting for placement. Latest serum sodium is 136. 01/08/2020-no acute events in the last 24 hours. The serum sodium is 135.5. Stable. (2) Pneumonia Qualifiers: Pneumonia type: due to unspecified organism Laterality: left Lung location: lower lobe of lung Qualified Code(s): J18.9 - Pneumonia, unspecified organism Is this a current diagnosis for this admission?: Yes Plan: Chest x-ray suggestive of atelectasis versus pneumonia. Unable to determine if this is an aspiration pneumonia, although, it does remain a possible cause due to the patient's altered mentation. Blood cultures (1/4 bottles) grew staph epidermidis; likely contaminant. Sputum culture not obtained. Repeat CXR is clear. Patient remains afebrile with clear lung sounds and maintaining oxygen saturations on room air. Leukocytosis trending down; 14.1-> 12.8 Patient is provided supplemental oxygen as needed maintain saturations greater than 89%. Currently maintaining oxygen saturations on room air. Vancomycin was discontinued day #3, Zosyn discontinued day #4. As needed nebulizer treatments. He is placed on Robitussin as needed. Pulmonary toilet is encouraged with incentive spirometer, flutter valve, early ambulation 01/07/2020-patient is presently not on antibiotics. Afebrile. Blood pressure is stable. WBC count within normal limits. 01/09/2020-pulse ox today is 97% on room air. Afebrile. Blood pressures are stable. Patient is afebrile at this time. (3) Hypertension Is this a current diagnosis for this admission?: No Plan: Uncontrolled blood pressures at present. Home medications have been reconciled; have resumed home dose Diltiazem, lisinopril, and p.o. hydralazine. Patient is inconsistent with oral medications. Clonidine patch removed overnight related to hypotension. Blood pressures remain soft. 01/07/2020-blood pressure is stable. 136/86. Plan is to continue the present management. 01/08/2020-blood pressure today is 119/78. Asymptomatic. Plan is to continue the present management at this time. 01/09/2020 blood pressure today is 112/71. Stable. (4) Altered mental status Is this a current diagnosis for this admission?: Yes Plan: Acute metabolic encephalopathy. Likely multifactorial secondary to hyponatremia, acute illness (left lower lobe pneumonia), in the setting of medication noncompliance and schizophrenia. Gradually improving. Head CT pending Disease specific management as outlined elsewhere. Nursing has been able to remove soft limb restraints today; this afternoon, patient remains calm and cooperative Supportive care. 01/08/2020-altered mental status resolved. Patient is not on restraints.. 01/09/2020-patient is comfortable in the bed communicating reasonably. Not in distress. Not under one-to-one observation. (5) Seizure Is this a current diagnosis for this admission?: Yes Plan: Seizure activity >72 hours Seizure activity noted while in the emergency department. Received loading dose of Dilantin followed by twice daily dosing until the patient has been seizure-free for greater than 48 hours. Have discontinued. Sodium is now improved and no longer a potential cause of seizure activity (129.5 today). We will continue seizure precautions and monitor closely. (6) Tobacco abuse Is this a current diagnosis for this admission?: Yes Plan: Daily nicotine patch. - Plan Summary Summary: 12/31/2019 Patient is improved Hyponatremia-serum sodium is up to 134. 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 Continue to monitor intake and output. Continue to monitor sodium levels. Continue fluid restriction. Once his serum sodium is in the normal range we could slightly increase his fluid intake. Acute encephalopathy-secondary to infection and the hyponatremia. Per previous progress notes he does seem to be at his baseline. He has been out of restraints for greater than 24 hours. Continue to monitor. Pneumonia-antibiotics were stopped after 3 to 4 days. The patient is stable. Not sure if this was in fact an aspiration episode. We will continue to monitor CBC and vital signs. Schizophrenia-appreciate psychiatry's input. Current regimen appears to be work ing. Continue same. Hypertension-blood pressure is increased today. I believe he just resumed his diltiazem, lisinopril and hydralazine. We will continue current medications and monitor blood pressures. Adjust medications accordingly. 01/01/2020 Sodium was 134 yesterday. Will recheck tomorrow. Encephalopathy resolved. Patient appears to be back at baseline. Hypertension-we will increase lisinopril to 20 mg twice a day Schizophrenia-continue current regimen At this point I feel the patient is stable to live in a monitored situation such as a memory care unit. 01/02/2020 Hyponatremia-sodium is up to 135.5. Will recheck on Monday. Schizophrenia-nurse reports that the patient is getting slightly agitated. He pulled his IV out. He is refusing medications. I will order Geodon intramu scularly if absolutely necessary. Hypertension-blood pressure still high. Will discontinue the nitroglycerin. Increase diltiazem to 360 mg and hydralazine to 25 mg every 8 hours. Continue regular vital signs. 01/03/2020 Hypertension-blood pressures are better with medication adjustments. Continue to monitor vital signs. Hyponatremia-sodium is just about normal. We will recheck labs tomorrow. Continue fluid restriction. No evidence of nicotine withdrawal Schizophrenia-doing reasonably well. No reports from the sitter about agitation or aggressive behavior. Awaiting placement in a memory care facility 01/04/2020 The patient was restless today. He was talking about leaving. With gentle redirection he seems to have settled down. He does have some tangential thoughts. See discussion above. Abdominal pain-today he is complaining of some epigastric discomfort. I told him we will initiate acid suppression if it is not already started and try a test dose of liquid antacid. Serum sodium is excellent at 138. I will increase his fluid restriction to 1.5 L. Reviewed the case with psychiatry. Will need to have a plan if he opts to try and elope as he did from the [facility]. I will discuss with his mother. He clearly needs placement. 01/05/2020 Awakens easily today with no agitation. Abdominal pain is reported to be better. Continue acid suppression. Serum sodium yesterday was normal. Recheck labs tomorrow. Awaiting placement. 01/06/2020 Increase Protonix to 40 mg twice a day. Change diet to mechanical soft with cut meats Serum chemistries are pending. Awaiting placement. I did call the patient's mother. I had to leave a message. I updated her on his condition including a little bit of epigastric discomfort and the fact that his serum sodium is better. - Time Anticipated Discharge Disposition: Psych Hospital/Unit Anticipated Discharge Timeframe: within 48 hours
[2020-01-09] MEDS: DILTIAZEM HCL 180 MG CAPSULE.CR PO SCH (09:26)
[2020-01-09] MEDS: BUSPIRONE HCL 10 MG TABLET PO SCH ×2 (09:26→21:24)
[2020-01-09] MEDS: NICOTINE 21 MG/24 HR PATCH.TD24 TD SCH (09:26)
[2020-01-09] MEDS: FLUTICASONE/VILANTEROL 200-25 MCG/DOSE IH SCH (09:26)
[2020-01-09] MEDS: FINASTERIDE 5 MG TABLET PO SCH (09:27)
[2020-01-09] MEDS: LISINOPRIL 10 MG TABLET PO SCH ×2 (09:27→21:24)
[2020-01-09] MEDS: GABAPENTIN 300 MG CAPSULE PO SCH (11:47)
[2020-01-10] MEDS: PANTOPRAZOLE SODIUM 40 MG TABLET.DR PO SCH ×2 (05:50→17:07)
[2020-01-10] MEDS: HYDRALAZINE HCL 25 MG TABLET PO SCH ×3 (05:50→21:46)
[2020-01-10] MEDS: HEPARIN SOD (PORCINE) 5,000 UNIT/ML 1 ML VIAL SUBCUT SCH ×3 (05:50→21:46)
[2020-01-10] MEDS: DIVALPROEX SODIUM 250 MG TABLET.DR PO SCH ×3 (05:50→21:45)
[2020-01-10] MEDS: LISINOPRIL 10 MG TABLET PO SCH ×2 (10:16→21:46)
[2020-01-10] MEDS: DILTIAZEM HCL 180 MG CAPSULE.CR PO SCH (10:16)
[2020-01-10] MEDS: FINASTERIDE 5 MG TABLET PO SCH (10:16)
[2020-01-10] MEDS: BUSPIRONE HCL 10 MG TABLET PO SCH ×2 (10:17→21:46)
[2020-01-10] MEDS: NICOTINE 21 MG/24 HR PATCH.TD24 TD SCH (10:17)
[2020-01-10] MEDS: FLUTICASONE/VILANTEROL 200-25 MCG/DOSE IH SCH (10:17)
--- NOTE | 2020-01-10 11:50 | PDOC PROGRESS REPORT ---
Subjective Progress Note for:: 01/10/20 Subjective:: 59 year old male with history of schizophrenia, gastroparesis reflux disease, COPD, history of hyponatremia was brought to the emergency room after he was found leaning up to both ears after walking for [address] he was an escape from [facility] and was placed on missing person file. Work-up in the ER indicates pneumonia, hyponatremia with a serum sodium of 116.8. ER physician discussed the case with Dr. Webb and also with ICU order packer or packager Dr. Webb was to give 50 mL of 3% normal saline. But ICU attending thinks patient does need to be in ICU does not need to be in 3% normal saline. Dr. arredondo called me for admission. After discussion with Dr. Webb, I requested Dr. Arredondo to give 3% normal saline 50 cc over 1 and half hour. I went to see the patient and he told me patient has a seizure-like activity and is able to give a Keppra. Also found to have a short brief of V. tach in the emergency room. The nurses have a hard time keeping the IV line in and he pulled a couple of IV lines. He was given a Catemine and IV line was accessed and started on 3% normal saline. I am going to admit the patient to IMCU but I requested Dr. arredondo to keep the patient in the ER tonight until mental status and hyponatremia improves. He agreed. pt is unable to give any history. 12/26/[id number]-dbro-old male admitted with hyponatremia questionable seizure activity in the ER brief episode of V. tach in the ER. Patient was given a loading dose of Dilantin 1 g now he is on IV Dilantin 100 mg twice a day. Serum sodium came up to 126 plan is to repeat the chemistry now. Psych consult was requested. Plan is to closely monitor the chemistry and mental status. 12/27/2019-patient admitted with hyponatremia of 116 improved to 126. Today's labs are pending. Possible seizure in the ER and he was given Dilantin loading dose and presently on Dilantin 100 mg p.o. twice a day. Plan is to discontinue IV Dilantin because no seizure activity was noticed in the last 24 hours. Patient is combative agitated and belligerent to give Geodon 20 mg IM. Psych consult was requested. Patient may need to go to inpatient rehab once medically cleared. 01/07/2020-patient is comfortable in the bed not in distress. Waiting for placement. 01/08/2020-patient is comfortable in the bed communicating well. Not in distress. Waiting for placement. 01/09/2020-patient is comfortable in the bed not in distress. Watching TV. Denies any problems. Waiting for placement. 01/10/2020-patient is comfortably in the bed communicating well not in distress. Waiting for placement. Reason For Visit: HYPONATREMIA Physical Exam Vital Signs: Temp Pulse Resp BP Pulse Ox 98.1 F 80 20 106/76 97 01/10/20 07:44 01/10/20 07:44 01/10/20 07:44 01/10/20 07:44 01/10/20 07:44 Intake & Output 01/09/20 01/10/20 01/11/20 06:59 06:59 06:59 Intake Total 260 540 Output Total 100 520 Balance 160 20 Weight 82.7 kg 82.4 kg General appearance: PRESENT: no acute distress, well-developed Head exam: PRESENT: atraumatic Eye exam: PRESENT: PERRLA Teeth exam: PRESENT: poor dentation Neck exam: ABSENT: carotid bruit, JVD, lymphadenopathy, thyromegaly Respiratory exam: PRESENT: decreased breath sounds Cardiovascular exam: PRESENT: RRR. ABSENT: diastolic murmur, rubs, systolic murmur GI/Abdominal exam: PRESENT: normal bowel sounds, soft. ABSENT: distended, guarding, mass, organolmegaly, rebound, tenderness Rectal exam: PRESENT: deferred Extremities exam: PRESENT: full ROM. ABSENT: calf tenderness, clubbing, pedal edema Neurological exam: PRESENT: alert, awake, oriented to person, oriented to place, oriented to time, oriented to situation, CN II-XII grossly intact. ABSENT: motor sensory deficit Psychiatric exam: PRESENT: appropriate affect, normal mood. ABSENT: homicidal ideation, suicidal ideation Results Laboratory Results: 01/08/20 06:09 01/08/20 06:09 12/25/19 12/25/19 12/25/19 13:39 13:39 13:39 Creatine Kinase 176 H Cancelled Troponin I 0.068 NT-Pro-B Natriuret Pep 12/25/19 12/26/19 21:27 05:40 Creatine Kinase Troponin I 0.127 0.096 NT-Pro-B Natriuret Pep 818 H Impressions: Chest X-Ray 12/29/19 07:00 IMPRESSION: NO ACUTE RADIOGRAPHIC FINDING IN THE CHEST. Assessment and Plan - Diagnosis (1) Hyponatremia Is this a current diagnosis for this admission?: Yes Plan: Initially treated in the emergency department with 3% normal saline. Sodium is improved; 116.8-> 123.6-> 126.3-> 124.9-> 127.9-> 129.5-> 129.8-> 133.0 Patient with history of hyponatremia and psychogenic polydipsia. Mental health service consultation obtained; they have reviewed his medication regiment and made recommendations with regard to his recurrent episodes of hyponatremia. Nephrology is consulted; appreciate their assistance and recommendations. Liberalize dietary sodium; regular diet. Fluid restricted 750 mL's daily. Strict I&O's. 01/07/2020-patient is comfortable in the bed communicating well. Hyponatremia is resolved. Waiting for placement. Latest serum sodium is 136. 01/08/2020-no acute events in the last 24 hours. The serum sodium is 135.5. Stable. (2) Pneumonia Qualifiers: Pneumonia type: due to unspecified organism Laterality: left Lung location: lower lobe of lung Qualified Code(s): J18.9 - Pneumonia, unspecified organism Is this a current diagnosis for this admission?: Yes Plan: Chest x-ray suggestive of atelectasis versus pneumonia. Unable to determine if this is an aspiration pneumonia, although, it does remain a possible cause due to the patient's altered mentation. Blood cultures (1/4 bottles) grew staph epidermidis; likely contaminant. Sputum culture not obtained. Repeat CXR is clear. Patient remains afebrile with clear lung sounds and maintaining oxygen saturations on room air. Leukocytosis trending down; 14.1-> 12.8 Patient is provided supplemental oxygen as needed maintain saturations greater than 89%. Currently maintaining oxygen saturations on room air. Vancomycin was discontinued day #3, Zosyn discontinued day #4. As needed nebulizer treatments. He is placed on Robitussin as needed. Pulmonary toilet is encouraged with incentive spirometer, flutter valve, early ambulation 01/07/2020-patient is presently not on antibiotics. Afebrile. Blood pressure is stable. WBC count within normal limits. 01/09/2020-pulse ox today is 97% on room air. Afebrile. Blood pressures are stable. Patient is afebrile at this time. 01/10/20-pulse oxes are stable. Blood pressure stable. Not on antibiotics at this time. (3) Hypertension Is this a current diagnosis for this admission?: No Plan: Uncontrolled blood pressures at present. Home medications have been reconciled; have resumed home dose Diltiazem, lisinopril, and p.o. hydralazine. Patient is inconsistent with oral medications. Clonidine patch removed overnight related to hypotension. Blood pressures remain soft. 01/07/2020-blood pressure is stable. 136/86. Plan is to continue the present management. 01/08/2020-blood pressure today is 119/78. Asymptomatic. Plan is to continue the present management at this time. 01/09/2020 blood pressure today is 112/71. Stable. 01/10/2020-blood pressure today is 120/82. Stable. Plan is to continue the present management. (4) Altered mental status Is this a current diagnosis for this admission?: Yes Plan: Acute metabolic encephalopathy. Likely multifactorial secondary to hyponatremia, acute illness (left lower lobe pneumonia), in the setting of medication noncompliance and schizophrenia. Gradually improving. Head CT pending Disease specific management as outlined elsewhere. Nursing has been able to remove soft limb restraints today; this afternoon, patient remains calm and cooperative Supportive care. 01/08/2020-altered mental status resolved. Patient is not on restraints.. 01/09/2020-patient is comfortable in the bed communicating reasonably. Not in distress. Not under one-to-one observation. (5) Seizure Is this a current diagnosis for this admission?: Yes Plan: Seizure activity >72 hours Seizure activity noted while in the emergency department. Received loading dose of Dilantin followed by twice daily dosing until the patient has been seizure-free for greater than 48 hours. Have discontinued. Sodium is now improved and no longer a potential cause of seizure activity (129.5 today). We will continue seizure precautions and monitor closely. (6) Tobacco abuse Is this a current diagnosis for this admission?: Yes - Plan Summary Summary: 12/31/2019 Patient is improved Hyponatremia-serum sodium is up to 134. 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 Continue to monitor intake and output. Continue to monitor sodium levels. Continue fluid restriction. Once his serum sodium is in the normal range we could slightly increase his fluid intake. Acute encephalopathy-secondary to infection and the hyponatremia. Per previous progress notes he does seem to be at his baseline. He has been out of restraints for greater than 24 hours. Continue to monitor. Pneumonia-antibiotics were stopped after 3 to 4 days. The patient is stable. Not sure if this was in fact an aspiration episode. We will continue to monitor CBC and vital signs. Schizophrenia-appreciate psychiatry's input. Current regimen appears to be working. Continue same. Hypertension-blood pressure is increased today. I believe he just resumed his d iltiazem, lisinopril and hydralazine. We will continue current medications and monitor blood pressures. Adjust medications accordingly. 01/01/2020 Sodium was 134 yesterday. Will recheck tomorrow. Encephalopathy resolved. Patient appears to be back at baseline. Hypertension-we will increase lisinopril to 20 mg twice a day Schizophrenia-continue current regimen At this point I feel the patient is stable to live in a monitored situation such as a memory care unit. 01/02/2020 Hyponatremia-sodium is up to 135.5. Will recheck on Monday. Schizophrenia-nurse reports that the patient is getting slightly agitated. He pulled his IV out. He is refusing medications. I will order Geodon intramus cularly if absolutely necessary. Hypertension-blood pressure still high. Will discontinue the nitroglycerin. Increase diltiazem to 360 mg and hydralazine to 25 mg every 8 hours. Continue regular vital signs. 01/03/2020 Hypertension-blood pressures are better with medication adjustments. Continue to monitor vital signs. Hyponatremia-sodium is just about normal. We will recheck labs tomorrow. Continue fluid restriction. No evidence of nicotine withdrawal Schizophrenia-doing reasonably well. No reports from the sitter about agitation or aggressive behavior. Awaiting placement in a memory care facility 01/04/2020 The patient was restless today. He was talking about leaving. With gentle redirection he seems to have settled down. He does have some tangential thoughts. See discussion above. Abdominal pain-today he is complaining of some epigastric discomfort. I told him we will initiate acid suppression if it is not already started and try a test dose of liquid antacid. Serum sodium is excellent at 138. I will increase his fluid restriction to 1.5 L. Reviewed the case with psychiatry. Will need to have a plan if he opts to try and elope as he did from the [facility]. I will discuss with his mother. He clearly needs placement. 01/05/2020 Awakens easily today with no agitation. Abdominal pain is reported to be better. Continue acid suppression. Serum sodium yesterday was normal. Recheck labs tomorrow. Awaiting placement. 01/06/2020 Increase Protonix to 40 mg twice a day. Change diet to mechanical soft with cut meats Serum chemistries are pending. Awaiting placement. I did call the patient's mother. I had to leave a message. I updated her on his condition including a little bit of epigastric discomfort and the fact that his serum sodium is better. - Time Anticipated Discharge Disposition: Psych Hospital/Unit Anticipated Discharge Timeframe: within 72 hours
[2020-01-10] MEDS: GABAPENTIN 300 MG CAPSULE PO SCH (13:01)
[2020-01-11] MEDS: HEPARIN SOD (PORCINE) 5,000 UNIT/ML 1 ML VIAL SUBCUT SCH ×3 (05:30→21:22)
[2020-01-11] MEDS: HYDRALAZINE HCL 25 MG TABLET PO SCH ×3 (05:36→21:23)
[2020-01-11] MEDS: DIVALPROEX SODIUM 250 MG TABLET.DR PO SCH ×3 (05:36→21:23)
[2020-01-11] MEDS: PANTOPRAZOLE SODIUM 40 MG TABLET.DR PO SCH ×2 (05:37→17:12)
[2020-01-11] MEDS: RISPERIDONE 0.25 MG TABLET PO PRN (07:33)
--- NOTE | 2020-01-11 09:51 | PDOC PROGRESS REPORT ---
Subjective Progress Note for:: 01/11/20 Subjective:: 59 year old male with history of schizophrenia, gastroparesis reflux disease, COPD, history of hyponatremia was brought to the emergency room after he was found leaning up to both ears after walking for [address] he was an escape from [facility] and was placed on missing person file. Work-up in the ER indicates pneumonia, hyponatremia with a serum sodium of 116.8. ER physician discussed the case with Dr. Webb and also with ICU linoleum layer Dr. Webb was to give 50 mL of 3% normal saline. But ICU attending thinks patient does need to be in ICU does not need to be in 3% normal saline. Dr. arredondo called me for admission. After discussion with Dr. Webb, I requested Dr. Arredondo to give 3% normal saline 50 cc over 1 and half hour. I went to see the patient and he told me patient has a seizure-like activity and is able to give a Keppra. Also found to have a short brief of V. tach in the emergency room. The nurses have a hard time keeping the IV line in and he pulled a couple of IV lines. He was given a Catemine and IV line was accessed and started on 3% normal saline. I am going to admit the patient to IMCU but I requested Dr. arredondo to keep the patient in the ER tonight until mental status and hyponatremia improves. He agreed. pt is unable to give any history. [id number]-old male admitted with hyponatremia questionable seizure activity in the ER brief episode of V. tach in the ER. Patient was given a loading dose of Dilantin 1 g now he is on IV Dilantin 100 mg twice a day. Serum sodium came up to 126 plan is to repeat the chemistry now. Psych consult was requested. Plan is to closely monitor the chemistry and mental status. 12/27/2019-patient admitted with hyponatremia of 116 improved to 126. Today's labs are pending. Possible seizure in the ER and he was given Dilantin loading dose and presently on Dilantin 100 mg p.o. twice a day. Plan is to discontinue IV Dilantin because no seizure activity was noticed in the last 24 hours. Patient is combative agitated and belligerent to give Geodon 20 mg IM. Psych consult was requested. Patient may need to go to inpatient rehab once medically cleared. 01/07/2020-patient is comfortable in the bed not in distress. Waiting for placement. 01/08/2020-patient is comfortable in the bed communicating well. Not in distress. Waiting for placement. 01/09/2020-patient is comfortable in the bed not in distress. Watching TV. Denies any problems. Waiting for placement. 01/10/2020-patient is comfortably in the bed communicating well not in distress. Waiting for placement. 01/11/2020-patient is agitated this morning. Screaming and yelling at this time. To give Haldol 5 mg im 1dose. Reason For Visit: HYPONATREMIA Physical Exam Vital Signs: Temp Pulse Resp BP Pulse Ox 97.6 F 83 17 108/69 94 01/11/20 07:30 01/11/20 07:30 01/11/20 07:30 01/11/20 07:30 01/11/20 07:30 Intake & Output 01/10/20 01/11/20 01/12/20 06:59 06:59 06:59 Intake Total 540 390 Output Total 520 600 Balance 20 -210 Weight 82.4 kg 83.7 kg General appearance: PRESENT: no acute distress, well-developed Head exam: PRESENT: atraumatic Eye exam: PRESENT: PERRLA Mouth exam: PRESENT: dry mucosa Teeth exam: PRESENT: poor dentation Neck exam: ABSENT: carotid bruit, JVD, lymphadenopathy, thyromegaly Respiratory exam: PRESENT: decreased breath sounds Cardiovascular exam: PRESENT: RRR. ABSENT: diastolic murmur, rubs, systolic murmur Pulses: PRESENT: normal dorsalis pedis pul GI/Abdominal exam: PRESENT: normal bowel sounds, soft. ABSENT: distended, guarding, mass, organolmegaly, rebound, tenderness Rectal exam: PRESENT: deferred Extremities exam: PRESENT: full ROM. ABSENT: calf tenderness, clubbing, pedal edema Neurological exam: PRESENT: alert, awake, oriented to person, oriented to place, oriented to time, oriented to situation, CN II-XII grossly intact. ABSENT: motor sensory deficit Psychiatric exam: PRESENT: appropriate affect, normal mood. ABSENT: homicidal ideation, suicidal ideation Results Laboratory Results: 01/08/20 06:09 01/08/20 06:09 12/25/19 12/25/19 12/25/19 13:39 13:39 13:39 Creatine Kinase 176 H Cancelled Troponin I 0.068 NT-Pro-B Natriuret Pep 12/25/19 12/26/19 21:27 05:40 Creatine Kinase Troponin I 0.127 0.096 NT-Pro-B Natriuret Pep 818 H Impressions: Chest X-Ray 12/29/19 07:00 IMPRESSION: NO ACUTE RADIOGRAPHIC FINDING IN THE CHEST. Assessment and Plan - Diagnosis (1) Hyponatremia Is this a current diagnosis for this admission?: Yes Plan: Initially treated in the emergency department with 3% normal saline. Sodium is improved; 116.8-> 123.6-> 126.3-> 124.9-> 127.9-> 129.5-> 129.8-> 133.0 Patient with history of hyponatremia and psychogenic polydipsia. Mental health service consultation obtained; they have reviewed his medication regiment and made recommendations with regard to his recurrent episodes of hyponatremia. Nephrology is consulted; appreciate their assistance and recommendations. Liberalize dietary sodium; regular diet. Fluid restricted 750 mL's daily. Strict I&O's. 01/07/2020-patient is comfortable in the bed communicating well. Hyponatremia is resolved. Waiting for placement. Latest serum sodium is 136. 01/08/2020-no acute events in the last 24 hours. The serum sodium is 135.5. Stable. (2) Pneumonia Qualifiers: Pneumonia type: due to unspecified organism Laterality: left Lung location: lower lobe of lung Qualified Code(s): J18.9 - Pneumonia, unspecified organism Is this a current diagnosis for this admission?: Yes Plan: Chest x-ray suggestive of atelectasis versus pneumonia. Unable to determine if this is an aspiration pneumonia, although, it does remain a possible cause due to the patient's altered mentation. Blood cultures (1/4 bottles) grew staph epidermidis; likely contaminant. Sputum culture not obtained. Repeat CXR is clear. Patient remains afebrile with clear lung sounds and maintaining oxygen saturations on room air. Leukocytosis trending down; 14.1-> 12.8 Patient is provided supplemental oxygen as needed maintain saturations greater than 89%. Currently maintaining oxygen saturations on room air. Vancomycin was discontinued day #3, Zosyn discontinued day #4. As needed nebulizer treatments. He is placed on Robitussin as needed. Pulmonary toilet is encouraged with incentive spirometer, flutter valve, early ambulation 01/07/2020-patient is presently not on antibiotics. Afebrile. Blood pressure is stable. WBC count within normal limits. 01/09/2020-pulse ox today is 97% on room air. Afebrile. Blood pressures are stable. Patient is afebrile at this time. 01/10/20-pulse oxes are stable. Blood pressure stable. Not on antibiotics at this time. (3) Hypertension Is this a current diagnosis for this admission?: No Plan: Uncontrolled blood pressures at present. Home medications have been reconciled; have resumed home dose Diltiazem, lisinopril, and p.o. hydralazine. Patient is inconsistent with oral medications. Clonidine patch removed overnight related to hypotension. Blood pressures remain soft. 01/07/2020-blood pressure is stable. 136/86. Plan is to continue the present management. 01/08/2020-blood pressure today is 119/78. Asymptomatic. Plan is to continue the present management at this time. 01/09/2020 blood pressure today is 112/71. Stable. 01/10/2020-blood pressure today is 120/82. Stable. Plan is to continue the present management. 01/11/2020-blood pressure today is 116/70. Stable. (4) Altered mental status Is this a current diagnosis for this admission?: Yes Plan: Acute metabolic encephalopathy. Likely multifactorial secondary to hyponatremia, acute illness (left lower lobe pneumonia), in the setting of medication noncompliance and schizophrenia. Gradually improving. Head CT pending Disease specific management as outlined elsewhere. Nursing has been able to remove soft limb restraints today; this afternoon, patient remains calm and cooperative Supportive care. 01/08/2020-altered mental status resolved. Patient is not on restraints.. 01/09/2020-patient is comfortable in the bed communicating reasonably. Not in distress. Not under one-to-one observation. 01/11/20-patient is agitated this morning. Screaming and yelling. To give Haldol 5 mg IM now. To continue to provide medications as recommended by the psych team. (5) Seizure Is this a current diagnosis for this admission?: Yes Plan: Seizure activity >72 hours Seizure activity noted while in the emergency department. Received loading dose of Dilantin followed by twice daily dosing until the patient has been seizure-free for greater than 48 hours. Have discontinued. Sodium is now improved and no longer a potential cause of seizure activity (129.5 today). We will continue seizure precautions and monitor closely. (6) Tobacco abuse Is this a current diagnosis for this admission?: Yes - Plan Summary Summary: 12/31/2019 Patient is improved Hyponatremia-serum sodium is up to 134. 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 Continue to monitor intake and output. Continue to monitor sodium levels. Continue fluid restriction. Once his serum sodium is in the normal range we could slightly increase his fluid intake. Acute encephalopathy-secondary to infection and the hyponatremia. Per previous progress notes he does seem to be at his baseline. He has been out of restraints for greater than 24 hours. Continue to monitor. Pneumonia-antibiotics were stopped after 3 to 4 days. The patient is stable. Not sure if this was in fact an aspiration episode. We will continue to monitor CBC and vital signs. Schizophrenia-appreciate psychiatry's input. Current regimen appears to be working. Continue same. Hypertension-blood pressure is increased today. I believe he just resumed his diltiazem, lisinopril and hydralazine. We will continue current medications and monitor blood pressures. Adjust medications accordingly. 01/01/2020 Sodium was 134 yesterday. Will recheck tomorrow. Encephalopathy resolved. Patient appears to be back at baseline. Hypertension-we will increase lisinopril to 20 mg twice a day Schizophrenia-continue current regimen At this point I feel the patient is stable to live in a monitored situation such as a memory care unit. 01/02/2020 Hyponatremia-sodium is up to 135.5. Will recheck on Monday. Schizophrenia-nurse reports that the patient is getting slightly agitated. He pulled his IV out. He is refusing medications. I will order Geodon intramuscularly if absolutely necessary. Hypertension-blood pressure still high. Will discontinue the nitroglycerin. Increase diltiazem to 360 mg and hydralazine to 25 mg every 8 hours. Continue regular vital signs. 01/03/2020 Hypertension-blood pressures are better with medication adjustments. Continue to monitor vital signs. Hyponatremia-sodium is just about normal. We will recheck labs tomorrow. Continue fluid restriction. No evidence of nicotine withdrawal Schizophrenia-doing reasonably well. No reports from the sitter about agitation or aggressive behavior. Awaiting placement in a memory care facility 01/04/2020 The patient was restless today. He was talking about leaving. With gentle redirection he seems to have settled down. He does have some tangential thoughts. See discussion above. Abdominal pain-today he is complaining of some epigastric discomfort. I told him we will initiate acid suppression if it is not already started and try a test dose of liquid antacid. Serum sodium is excellent at 138. I will increase his fluid restriction to 1.5 L. Reviewed the case with psychiatry. Will need to have a plan if he opts to try and elope as he did from the [facility]. I will discuss with his mother. He clearly needs placement. 01/05/2020 Awakens easily today with no agitation. Abdominal pain is reported to be better. Continue acid suppression. Serum sodium yesterday was normal. Recheck labs tomorrow. Awaiting placement. 01/06/2020 Increase Protonix to 40 mg twice a day. Change diet to mechanical soft with cut meats Serum chemistries are pending. Awaiting placement. I did call the patient's mother. I had to leave a message. I updated her on his condition including a little bit of epigastric discomfort and the fact that his serum sodium is better. - Time Anticipated Discharge Disposition: Psych Hospital/Unit Anticipated Discharge Timeframe: within 72 hours
[2020-01-11] MEDS ORDERED: HALOPERIDOL LACTATE INJ 5 MG/1 ML VIAL IV ONE (10:15)
[2020-01-11] MEDS ORDERED: HALOPERIDOL LACTATE INJ 5 MG/1 ML VIAL IM ONE ×2 (10:45→12:00)
[2020-01-11] MEDS: BUSPIRONE HCL 10 MG TABLET PO SCH ×2 (12:52→21:23)
[2020-01-11] MEDS: DILTIAZEM HCL 180 MG CAPSULE.CR PO SCH (12:53)
[2020-01-11] MEDS: GABAPENTIN 300 MG CAPSULE PO SCH (12:54)
[2020-01-11] MEDS: NICOTINE 21 MG/24 HR PATCH.TD24 TD SCH (13:20)
[2020-01-11] MEDS: FINASTERIDE 5 MG TABLET PO SCH (13:20)
[2020-01-11] MEDS: LISINOPRIL 10 MG TABLET PO SCH ×2 (13:20→21:23)
[2020-01-11] MEDS: FLUTICASONE/VILANTEROL 200-25 MCG/DOSE IH SCH (13:20)
[2020-01-11] MEDS: HALOPERIDOL LACTATE INJ 5 MG/1 ML VIAL IM PRN (21:54)
[2020-01-12] MEDS: HEPARIN SOD (PORCINE) 5,000 UNIT/ML 1 ML VIAL SUBCUT SCH ×3 (05:48→21:28)
[2020-01-12] MEDS: HYDRALAZINE HCL 25 MG TABLET PO SCH ×3 (05:48→21:23)
[2020-01-12] MEDS: PANTOPRAZOLE SODIUM 40 MG TABLET.DR PO SCH ×2 (05:48→16:06)
[2020-01-12] MEDS: DIVALPROEX SODIUM 250 MG TABLET.DR PO SCH ×3 (05:48→21:25)
[2020-01-12 09:01] LABS: ABSOLUTE BASOPHILS # (AUTO) 0.1 10^3/uL (0.0-0.2); ABSOLUTE EOSINOPHILS # (AUTO) 0.3 10^3/uL (0.0-0.6); ABSOLUTE LYMPHOCYTES (AUTO) 2.6 10^3/uL (0.5-4.7); ABSOLUTE MONOCYTES (AUTO) 0.7 10^3/uL (0.1-1.4); ABSOLUTE NEUT (AUTO) 7.9 10^3/uL (1.7-8.2); BASOPHILS % (AUTO) 1.2 % (0-2); EOSINOPHILS % (AUTO) 2.3 % (0-6); HEMATOCRIT 40.3 % (37.9-51.0); HEMOGLOBIN 13.7 g/dL (13.5-17.0); LYMPHOCYTES % (AUTO) 22.2 % (13-45); MEAN CORPUSCULAR HEMOGLOBIN 30.3 pg (27.0-33.4); MEAN CORPUSCULAR VOLUME 89 fl (80-97); MONOCYTES % (AUTO) 6.4 % (3-13); PLATELET COUNT 313 10^3/uL (150-450); RED BLOOD COUNT 4.54 10^6/uL (4.35-5.55); RED CELL DISTRIBUTION WIDTH 15.4 % (11.5-14.0); SEGMENTED NEUTROPHILS % (AUTO) 67.9 % (42-78); TOTAL CELLS COUNTED % (AUTO) 100 %; WHITE BLOOD COUNT 11.6 10^3/uL (4.0-10.5)
[2020-01-12 09:13] LABS: ALKALINE PHOSPHATASE 76 U/L (38-126); ANION GAP 13 (5-19); ASPARTATE AMINO TRANSFERASE 27 U/L (17-59); BILIRUBIN,DIRECT 0.3 mg/dL (0.0-0.4); BILIRUBIN,TOTAL 0.5 mg/dL (0.2-1.3); BLOOD UREA NITROGEN 36 mg/dL (7-20); CALCIUM 9.6 mg/dL (8.4-10.2); CARBON DIOXIDE 22 mmol/L (22-30); CHLORIDE 104 mmol/L (98-107); GLUCOSE 91 mg/dL (75-110); POTASSIUM 4.7 mmol/L (3.6-5.0); TOTAL PROTEIN 6.8 g/dL (6.3-8.2)
--- NOTE | 2020-01-12 09:56 | PDOC PROGRESS REPORT ---
Subjective Progress Note for:: 01/12/20 Subjective:: 59 year old male with history of schizophrenia, gastroparesis reflux disease, COPD, history of hyponatremia was brought to the emergency room after he was found leaning up to both ears after walking for [address] he was an escape from [facility] and was placed on missing person file. Work-up in the ER indicates pneumonia, hyponatremia with a serum sodium of 116.8. ER physician discussed the case with Dr. Webb and also with ICU beer merchant Dr. Webb was to give 50 mL of 3% normal saline. But ICU attending thinks patient does need to be in ICU does not need to be in 3% normal saline. Dr. arredondo called me for admission. After discussion with Dr. Webb, I requested Dr. Arredondo to give 3% normal saline 50 cc over 1 and half hour. I went to see the patient and he told me patient has a seizure-like activity and is able to give a Keppra. Also found to have a short brief of V. tach in the emergency room. The nurses have a hard time keeping the IV line in and he pulled a couple of IV lines. He was given a Catemine and IV line was accessed and started on 3% normal saline. I am going to admit the patient to IMCU but I requested Dr. arredondo to keep the patient in the ER tonight until mental status and hyponatremia improves. He agreed. pt is unable to give any history. [id number]-old male admitted with hyponatremia questionable seizure activity in the ER brief episode of V. tach in the ER. Patient was given a loading dose of Dilantin 1 g now he is on IV Dilantin 100 mg twice a day. Serum sodium came up to 126 plan is to repeat the chemistry now. Psych consult was requested. Plan is to closely monitor the chemistry and mental status. 12/27/2019-patient admitted with hyponatremia of 116 improved to 126. Today's labs are pending. Possible seizure in the ER and he was given Dilantin loading dose and presently on Dilantin 100 mg p.o. twice a day. Plan is to discontinue IV Dilantin because no seizure activity was noticed in the last 24 hours. Patient is combative agitated and belligerent to give Geodon 20 mg IM. Psych consult was requested. Patient may need to go to inpatient rehab once medically cleared. 01/07/2020-patient is comfortable in the bed not in distress. Waiting for placement. 01/08/2020-patient is comfortable in the bed communicating well. Not in distress. Waiting for placement. 01/09/2020-patient is comfortable in the bed not in distress. Watching TV. Denies any problems. Waiting for placement. 01/10/2020-patient is comfortably in the bed communicating well not in distress. Waiting for placement. 01/11/2020-patient is agitated this morning. Screaming and yelling at this time. To give Haldol 5 mg im 1dose. 01/12/2020-patient is comfortably in the bed not in distress. Waiting for placement. Reason For Visit: HYPONATREMIA Physical Exam Vital Signs: Temp Pulse Resp BP Pulse Ox 98.2 F 88 19 119/82 97 01/12/20 07:51 01/12/20 07:51 01/12/20 07:51 01/12/20 07:51 01/12/20 07:51 Intake & Output 01/11/20 01/12/20 01/13/20 06:59 06:59 06:59 Intake Total 390 841 Output Total 600 360 Balance -210 481 Weight 83.7 kg 78 kg General appearance: PRESENT: no acute distress, obese Head exam: PRESENT: atraumatic Eye exam: PRESENT: PERRLA Ear exam: PRESENT: normal external ear exam Mouth exam: PRESENT: neck supple Teeth exam: PRESENT: poor dentation Neck exam: ABSENT: carotid bruit, JVD, lymphadenopathy, thyromegaly Respiratory exam: PRESENT: decreased breath sounds Cardiovascular exam: PRESENT: RRR. ABSENT: diastolic murmur, rubs, systolic murmur GI/Abdominal exam: PRESENT: normal bowel sounds, soft. ABSENT: distended, guarding, mass, organolmegaly, rebound, tenderness Rectal exam: PRESENT: deferred Extremities exam: PRESENT: full ROM. ABSENT: calf tenderness, clubbing, pedal edema Neurological exam: PRESENT: alert, awake, oriented to person, oriented to place, oriented to time, oriented to situation, CN II-XII grossly intact. ABSENT: motor sensory deficit Results Laboratory Results: 01/12/20 07:24 01/12/20 07:24 01/12/20 01/12/20 07:24 07:24 WBC 11.6 H RBC 4.54 Hgb 13.7 Hct 40.3 MCV 89 MCH 30.3 MCHC 34.0 RDW 15.4 H Plt Count 313 Seg Neutrophils % 67.9 Sodium 139.3 Potassium 4.7 Chloride 104 Carbon Dioxide 22 Anion Gap 13 BUN 36 H Creatinine 1.58 H Est GFR ( Amer) 54 L Glucose 91 Calcium 9.6 Magnesium 1.9 Total Bilirubin 0.5 AST 27 Alkaline Phosphatase 76 Total Protein 6.8 Albumin 4.0 12/25/19 12/25/19 12/25/19 13:39 13:39 13:39 Creatine Kinase 176 H Cancelled Troponin I 0.068 NT-Pro-B Natriuret Pep 12/25/19 12/26/19 21:27 05:40 Creatine Kinase Troponin I 0.127 0.096 NT-Pro-B Natriuret Pep 818 H Impressions: Chest X-Ray 12/29/19 07:00 IMPRESSION: NO ACUTE RADIOGRAPHIC FINDING IN THE CHEST. Assessment and Plan - Diagnosis (1) Hyponatremia Is this a current diagnosis for this admission?: Yes Plan: Initially treated in the emergency department with 3% normal saline. Sodium is improved; 116.8-> 123.6-> 126.3-> 124.9-> 127.9-> 129.5-> 129.8-> 133.0 Patient with history of hyponatremia and psychogenic polydipsia. Mental health service consultation obtained; they have reviewed his medication regiment and made recommendations with regard to his recurrent episodes of hyponatremia. Nephrology is consulted; appreciate their assistance and recommendations. Liberalize dietary sodium; regular diet. Fluid restricted 750 mL's daily. Strict I&O's. 01/07/2020-patient is comfortable in the bed communicating well. Hyponatremia is resolved. Waiting for placement. Latest serum sodium is 136. 01/08/2020-no acute events in the last 24 hours. The serum sodium is 135.5. Stable. 01/12/20- sodium is 139...stable..hyponatremia resolved (2) Pneumonia Qualifiers: Pneumonia type: due to unspecified organism Laterality: left Lung location: lower lobe of lung Qualified Code(s): J18.9 - Pneumonia, unspecified organism Is this a current diagnosis for this admission?: Yes Plan: Chest x-ray suggestive of atelectasis versus pneumonia. Unable to determine if this is an aspiration pneumonia, although, it does remain a possible cause due to the patient's altered mentation. Blood cultures (1/4 bottles) grew staph epidermidis; likely contaminant. Sputum culture not obtained. Repeat CXR is clear. Patient remains afebrile with clear lung sounds and maintaining oxygen saturations on room air. Leukocytosis trending down; 14.1-> 12.8 Patient is provided supplemental oxygen as needed maintain saturations greater than 89%. Currently maintaining oxygen saturations on room air. Vancomycin was discontinued day #3, Zosyn discontinued day #4. As needed nebulizer treatments. He is placed on Robitussin as needed. Pulmonary toilet is encouraged with incentive spirometer, flutter valve, early ambulation 01/07/2020-patient is presently not on antibiotics. Afebrile. Blood pressure is stable. WBC count within normal limits. 01/09/2020-pulse ox today is 97% on room air. Afebrile. Blood pressures are stable. Patient is afebrile at this time. 01/10/20-pulse oxes are stable. Blood pressure stable. Not on antibiotics at this time. (3) Hypertension Is this a current diagnosis for this admission?: No Plan: Uncontrolled blood pressures at present. Home medications have been reconciled; have resumed home dose Diltiazem, lisinopril, and p.o. hydralazine. Patient is inconsistent with oral medications. Clonidine patch removed overnight related to hypotension. Blood pressures remain soft. 01/07/2020-blood pressure is stable. 136/86. Plan is to continue the present management. 01/08/2020-blood pressure today is 119/78. Asymptomatic. Plan is to continue the present management at this time. 01/09/2020 blood pressure today is 112/71. Stable. 01/10/2020-blood pressure today is 120/82. Stable. Plan is to continue the present management. 01/11/2020-blood pressure today is 116/70. Stable. 01/12/2020-blood pressure today's 113/62. Stable. Plan is to closely monitor the blood pressures. (4) Altered mental status Is this a current diagnosis for this admission?: Yes Plan: Acute metabolic encephalopathy. Likely multifactorial secondary to hyponatremia, acute illness (left lower lobe pneumonia), in the setting of medication noncompliance and schizophrenia. Gradually improving. Head CT pending Disease specific management as outlined elsewhere. Nursing has been able to remove soft limb restraints today; this afternoon, patient remains calm and cooperative Supportive care. 01/08/2020-altered mental status resolved. Patient is not on restraints.. 01/09/2020-patient is comfortable in the bed communicating reasonably. Not in distress. Not under one-to-one observation. 01/11/20-patient is agitated this morning. Screaming and yelling. To give Haldol 5 mg IM now. To continue to provide medications as recommended by the psych team. (5) Seizure Is this a current diagnosis for this admission?: Yes Plan: Seizure activity >72 hours Seizure activity noted while in the emergency department. Received loading dose of Dilantin followed by twice daily dosing until the patient has been seizure-free for greater than 48 hours. Have discontinued. Sodium is now improved and no longer a potential cause of seizure activity (129.5 today). We will continue seizure precautions and monitor closely. (6) Tobacco abuse Is this a current diagnosis for this admission?: Yes - Plan Summary Summary: 12/31/2019 Patient is improved Hyponatremia-serum sodium is up to 134. 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 Continue to monitor intake and output. Continue to monitor sodium levels. Continue fluid restriction. Once his serum sodium is in the normal range we could slightly increase his fluid intake. Acute encephalopathy-secondary to infection and the hyponatremia. Per previous progress notes he does seem to be at his baseline. He has been out of restraints for greater than 24 hours. Continue to monitor. Pneumonia-antibiotics were stopped after 3 to 4 days. The patient is stable. Not sure if this was in fact an aspiration episode. We will continue to monitor CBC and vital signs. Schizophrenia-appreciate psychiatry's input. Current regimen appears to be working. Continue same. Hypertension-blood pressure is increased today. I believe he just resumed his diltiazem, lisinopril and hydralazine. We will continue current medications and monitor blood pressures. Adjust medications accordingly. 01/01/2020 Sodium was 134 yesterday. Will recheck tomorrow. Encephalopathy resolved. Patient appears to be back at baseline. Hypertension-we will increase lisinopril to 20 mg twice a day Schizophrenia-continue current regimen At this point I feel the patient is stable to live in a monitored situation such as a memory care unit. 01/02/2020 Hyponatremia-sodium is up to 135.5. Will recheck on Monday. Schizophrenia-nurse reports that the patient is getting slightly agitated. He pulled his IV out. He is refusing medications. I will order Geodon intramuscularly if absolutely necessary. Hypertension-blood pressure still high. Will discontinue the nitroglycerin. Increase diltiazem to 360 mg and hydralazine to 25 mg every 8 hours. Continue regular vital signs. 01/03/2020 Hypertension-blood pressures are better with medication adjustments. Continue to monitor vital signs. Hyponatremia-sodium is just about normal. We will recheck labs tomorrow. Continue fluid restriction. No evidence of nicotine withdrawal Schizophrenia-doing reasonably well. No reports from the sitter about agitation or aggressive behavior. Awaiting placement in a memory care facility 01/04/2020 The patient was restless today. He was talking about leaving. With gentle redirection he seems to have settled down. He does have some tangential thoughts. See discussion above. Abdominal pain-today he is complaining of some epigastric discomfort. I told him we will initiate acid suppression if it is not already started and try a test dose of liquid antacid. Serum sodium is excellent at 138. I will increase his fluid restriction to 1.5 L. Reviewed the case with psychiatry. Will need to have a plan if he opts to try and elope as he did from the [facility] facility. I will discuss with his mother. He clearly needs placement. 01/05/2020 Awakens easily today with no agitation. Abdominal pain is reported to be better. Continue acid suppression. Serum sodium yesterday was normal. Recheck labs tomorrow. Awaiting placement. 01/06/2020 Increase Protonix to 40 mg twice a day. Change diet to mechanical soft with cut meats Serum chemistries are pending. Awaiting placement. I did call the patient's mother. I had to leave a message. I updated her on his condition including a little bit of epigastric discomfort and the fact that his serum sodium is better. - Time Anticipated Discharge Disposition: Psych Hospital/Unit Anticipated Discharge Timeframe: within 48 hours
[2020-01-12] MEDS: DILTIAZEM HCL 180 MG CAPSULE.CR PO SCH (10:37)
[2020-01-12] MEDS: FLUTICASONE/VILANTEROL 200-25 MCG/DOSE IH SCH (10:37)
[2020-01-12] MEDS: BUSPIRONE HCL 10 MG TABLET PO SCH ×2 (10:37→21:23)
[2020-01-12] MEDS: FINASTERIDE 5 MG TABLET PO SCH (10:37)
[2020-01-12] MEDS: NICOTINE 21 MG/24 HR PATCH.TD24 TD SCH (10:37)
[2020-01-12] MEDS: LISINOPRIL 10 MG TABLET PO SCH ×2 (10:47→21:23)
[2020-01-12] MEDS: GABAPENTIN 300 MG CAPSULE PO SCH (13:49)
[2020-01-12] MEDS: ACETAMINOPHEN 325 MG TABLET PO PRN (15:52)
[2020-01-12] MEDS: RISPERIDONE 0.25 MG TABLET PO PRN (21:25)
[2020-01-12] MEDS: HALOPERIDOL LACTATE INJ 5 MG/1 ML VIAL IM PRN (23:57)
[2020-01-13] MEDS: ACETAMINOPHEN 325 MG TABLET PO PRN (03:05)
[2020-01-13] MEDS: DIVALPROEX SODIUM 250 MG TABLET.DR PO SCH ×3 (05:53→21:36)
[2020-01-13] MEDS: PANTOPRAZOLE SODIUM 40 MG TABLET.DR PO SCH ×2 (05:54→17:00)
[2020-01-13] MEDS: HYDRALAZINE HCL 25 MG TABLET PO SCH ×3 (05:54→21:36)
[2020-01-13] MEDS: HEPARIN SOD (PORCINE) 5,000 UNIT/ML 1 ML VIAL SUBCUT SCH ×3 (05:55→21:37)
[2020-01-13] MEDS: DILTIAZEM HCL 180 MG CAPSULE.CR PO SCH (09:24)
[2020-01-13] MEDS: LISINOPRIL 10 MG TABLET PO SCH (09:27)
[2020-01-13] MEDS: FINASTERIDE 5 MG TABLET PO SCH (09:28)
[2020-01-13] MEDS: BUSPIRONE HCL 10 MG TABLET PO SCH ×2 (09:29→21:36)
[2020-01-13] MEDS: NICOTINE 21 MG/24 HR PATCH.TD24 TD SCH (09:31)
[2020-01-13] MEDS: FLUTICASONE/VILANTEROL 200-25 MCG/DOSE IH SCH (09:33)
[2020-01-13] MEDS: GABAPENTIN 300 MG CAPSULE PO SCH (13:32)
--- NOTE | 2020-01-13 14:24 | PDOC PROGRESS REPORT ---
Subjective Subjective:: Per previous physician: "59 year old male with history of schizophrenia, gastroparesis reflux disease, COPD, history of hyponatremia was brought to the emergency room after he was found leaning up to both ears after walking for [address] he was an escape from [facility] and was placed on missing person file. Work-up in the ER indicates pneumonia, hyponatremia with a serum sodium of 116.8. ER physician discussed the case with Dr. Webb and also with ICU monument mason Dr. Webb was to give 50 mL of 3% normal saline. But ICU attending thinks patient does need to be in ICU does not need to be in 3% normal saline. Dr. arredondo called me for admission. After discussion with Dr. Webb, I requested Dr. Arredondo to give 3% normal saline 50 cc over 1 and half hour. I went to see the patient and he told me patient has a seizure-like activity and is able to give a Keppra. Also found to have a short brief of V. tach in the emergency room. The nurses have a hard time keeping the IV line in and he pulled a couple of IV lines. He was given a Catemine and IV line was accessed and started on 3% normal saline. I am going to admit the patient to IMCU but I requested Dr. arredondo to keep the patient in the ER tonight until mental status and hyponatremia improves. He agreed. pt is unable to give any history. 12/26/[id number]-izqn-old male admitted with hyponatremia questionable seizure acti vity in the ER brief episode of V. tach in the ER. Patient was given a loading dose of Dilantin 1 g now he is on IV Dilantin 100 mg twice a day. Serum sodium came up to 126 plan is to repeat the chemistry now. Psych consult was requested. Plan is to closely monitor the chemistry and mental status. 12/27/2019-patient admitted with hyponatremia of 116 improved to 126. Today's labs are pending. Possible seizure in the ER and he was given Dilantin loading dose and presently on Dilantin 100 mg p.o. twice a day. Plan is to discontinue IV Dilantin because no seizure activity was noticed in the last 24 hours. Patient is combative agitated and belligerent to give Geodon 20 mg IM. Psych consult was requested. Patient may need to go to inpatient rehab once medically cleared. 01/07/2020-patient is comfortable in the bed not in distress. Waiting for placement. 01/08/2020-patient is comfortable in the bed communicating well. Not in distress. Waiting for placement. 01/09/2020-patient is comfortable in the bed not in distress. Watching TV. Denies any problems. Waiting for placement. 01/10/2020-patient is comfortably in the bed communicating well not in distress. Waiting for placement. 01/11/2020-patient is agitated this morning. Screaming and yelling at this time. To give Haldol 5 mg im 1dose. 01/12/2020-patient is comfortably in the bed not in distress. Waiting for plac ement." 01/05/2020 Patient very calm and speaking in clear complete sentences this morning. He is not agitated today. Creatinine is gradually rising. Hold lisinopril. Waiting for placement, case management working on this. Reason For Visit: HYPONATREMIA Physical Exam Vital Signs: Temp Pulse Resp BP Pulse Ox 97.9 F 85 18 117/78 99 01/13/20 11:53 01/13/20 11:53 01/13/20 11:53 01/13/20 11:53 01/13/20 11:53 Intake & Output 01/12/20 01/13/20 01/14/20 06:59 06:59 06:59 Intake Total 841 1342 992 Output Total 360 1140 175 Balance 481 202 817 Weight 78 kg 77.3 kg General appearance: PRESENT: no acute distress, well-developed, well-nourished Head exam: PRESENT: atraumatic, normocephalic Eye exam: PRESENT: conjunctiva pink. ABSENT: scleral icterus Ear exam: PRESENT: normal external ear exam Mouth exam: PRESENT: moist Neck exam: ABSENT: carotid bruit, JVD, lymphadenopathy, thyromegaly Respiratory exam: PRESENT: clear to auscultation alan. ABSENT: rales, rhonchi, wheezes Cardiovascular exam: PRESENT: RRR. ABSENT: diastolic murmur, rubs, systolic murmur Pulses: PRESENT: normal dorsalis pedis pul Vascular exam: PRESENT: normal capillary refill GI/Abdominal exam: PRESENT: normal bowel sounds, soft. ABSENT: distended, guarding, mass, organolmegaly, rebound, tenderness Rectal exam: PRESENT: deferred Extremities exam: PRESENT: full ROM. ABSENT: calf tenderness, clubbing, pedal edema Neurological exam: PRESENT: alert, awake, oriented to person Psychiatric exam: PRESENT: flat affect, normal mood Skin exam: PRESENT: dry, intact, warm Results Laboratory Results: 01/12/20 07:24 01/12/20 07:24 12/25/19 12/25/19 12/25/19 13:39 13:39 13:39 Creatine Kinase 176 H Cancelled Troponin I 0.068 NT-Pro-B Natriuret Pep 12/25/19 12/26/19 21:27 05:40 Creatine Kinase Troponin I 0.127 0.096 NT-Pro-B Natriuret Pep 818 H Impressions: Chest X-Ray 12/29/19 07:00 IMPRESSION: NO ACUTE RADIOGRAPHIC FINDING IN THE CHEST. Assessment and Plan - Diagnosis (1) Acute metabolic encephalopathy Is this a current diagnosis for this admission?: Yes Plan: Multifactorial: Hyponatremia superimposed on schizoaffective disorder Psychiatric medications Sodium level gradually keila to normal Trend BMP Needs nursing facility placement with locked unit (2) Altered mental status Qualifiers: Altered mental status type: delirium Qualified Code(s): R41.0 - Disorientation, unspecified Is this a current diagnosis for this admission?: Yes Plan: Per previous physician: "Acute metabolic encephalopathy. Likely multifactorial secondary to hyponatremia, acute illness (left lower lobe pneumonia), in the setting of medication noncompliance and schizophrenia. Gradually improving. Head CT pending Disease specific management as outlined elsewhere. Nursing has been able to remove soft limb restraints today; this afternoon, patient remains calm and cooperative Supportive care. 01/08/2020-altered mental status resolved. Patient is not on restraints.. 01/09/2020-patient is comfortable in the bed communicating reasonably. Not in distress. Not under one-to-one observation. 01/11/20-patient is agitated this morning. Screaming and yelling. To give Haldol 5 mg IM now. To continue to provide medications as recommended by the psych team." 01/05/2020 Stable mentation, still not oriented but very calm today (3) Pneumonia Qualifiers: Pneumonia type: due to unspecified organism Laterality: left Lung location: lower lobe of lung Qualified Code(s): J18.9 - Pneumonia, unspecified organism Is this a current diagnosis for this admission?: Yes Plan: Per previous physician: "Chest x-ray suggestive of atelectasis versus pneumonia. Unable to determine if this is an aspiration pneumonia, although, it does remain a possible cause due to the patient's altered mentation. Blood cultures (1/4 bottles) grew staph epidermidis; likely contaminant. Sputum culture not obtained. Repeat CXR is clear. Patient remains afebrile with clear lung sounds and maintaining oxygen saturations on room air. Leukocytosis trending down; 14.1-> 12.8 Patient is provided supplemental oxygen as needed maintain saturations greater than 89%. Currently maintaining oxygen saturations on room air. Vancomycin was discontinued day #3, Zosyn discontinued day #4. As needed nebulizer treatments. He is placed on Robitussin as needed. Pulmonary toilet is encouraged with incentive spirometer, flutter valve, early ambulation 01/07/2020-patient is presently not on antibiotics. Afebrile. Blood pressure is stable. WBC count within normal limits. 01/09/2020-pulse ox today is 97% on room air. Afebrile. Blood pressures are stable. Patient is afebrile at this time. 01/10/20-pulse oxes are stable. Blood pressure stable. Not on antibiotics at this time." Resolved (4) Seizure Is this a current diagnosis for this admission?: Yes Plan: Per previous physician: "Seizure activity >72 hours Seizure activity noted while in the emergency department. Received loading dose of Dilantin followed by twice daily dosing until the patient has been seizure-free for greater than 48 hours. Have discontinued. Sodium is now improved and no longer a potential cause of seizure activity (129.5 today). We will continue seizure precautions and monitor closely." No seizures here (5) Tobacco abuse Is this a current diagnosis for this admission?: Yes Plan: Daily nicotine patch. (6) Acute kidney injury Is this a current diagnosis for this admission?: Yes Plan: Possibly due to NADIYA inhibitor versus urinary retention Bladder scan Hold NADIYA inhibitor (7) Hypertension Is this a current diagnosis for this admission?: No (8) Hyponatremia Is this a current diagnosis for this admission?: Yes - Plan Summary Summary: 12/31/2019 Patient is improved Hyponatremia-serum sodium is up to 134. 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 Continue to monitor intake and output. Continue to monitor sodium levels. Continue fluid restriction. Once his serum sodium is in the normal range we could slightly increase his fluid intake. Acute encephalopathy-secondary to infection and the hyponatremia. Per previous progress notes he does seem to be at his baseline. He has been out of restraints for greater than 24 hours. Continue to monitor. Pneumonia-antibiotics were stopped after 3 to 4 days. The patient is stable. Not sure if this was in fact an aspiration episode. We will continue to monitor CBC and vital signs. Schizophrenia-appreciate psychiatry's input. Current regimen appears to be working. Continue same. Hypertension-blood pressure is increased today. I believe he just resumed his diltiazem, lisinopril and hydralazine. We will continue current medications and monitor blood pressures. Adjust medications accordingly. 01/01/2020 Sodium was 134 yesterday. Will recheck tomorrow. Encephalopathy resolved. Patient appears to be back at baseline. Hypertension-we will increase lisinopril to 20 mg twice a day Schizophrenia-continue current regimen At this point I feel the patient is stable to live in a monitored situation such as a memory care unit. 01/02/2020 Hyponatremia-sodium is up to 135.5. Will recheck on Monday. Schizophrenia-nurse reports that the patient is getting slightly agitated. He p ulled his IV out. He is refusing medications. I will order Geodon intramuscularly if absolutely necessary. Hypertension-blood pressure still high. Will discontinue the nitroglycerin. Increase diltiazem to 360 mg and hydralazine to 25 mg every 8 hours. Continue regular vital signs. 01/03/2020 Hypertension-blood pressures are better with medication adjustments. Continue to monitor vital signs. Hyponatremia-sodium is just about normal. We will recheck labs tomorrow. Continue fluid restriction. No evidence of nicotine withdrawal Schizophrenia-doing reasonably well. No reports from the sitter about agitation or aggressive behavior. Awaiting placement in a memory care facility 01/04/2020 The patient was restless today. He was talking about leaving. With gentle redirection he seems to have settled down. He does have some tangential thoughts. See discussion above. Abdominal pain-today he is complaining of some epigastric discomfort. I told him we will initiate acid suppression if it is not already started and try a test dose of liquid antacid. Serum sodium is excellent at 138. I will increase his fluid restriction to 1.5 L. Reviewed the case with psychiatry. Will need to have a plan if he opts to try and elope as he did from the [facility]. I will discuss with his mother. He clearly needs placement. 01/05/2020 Awakens easily today with no agitation. Abdominal pain is reported to be better. Continue acid suppression. Serum sodium yesterday was normal. Recheck labs tomorrow. Awaiting placement. 01/06/2020 Increase Protonix to 40 mg twice a day. Change diet to mechanical soft with cut meats Serum chemistries are pending. Awaiting placement. I did call the patient's mother. I had to leave a message. I updated her on his condition including a little bit of epigastric discomfort and the fact that his serum sodium is better. - Time Time Spent with patient: 15-24 minutes Medications reviewed and adjusted accordingly: Yes Anticipated Discharge Disposition: Psych Hospital/Unit Anticipated Discharge Timeframe: within 48 hours - Inpatient Certification Based on my medical assessment, after consideration of the patient's comorbidities, presenting symptoms, or acuity I expect that the services needed warrant INPATIENT care.: Yes I certify that my determination is in accordance with my understanding of Medicare's requirements for reasonable and necessary INPATIENT services [42 CFR 412.3e].: Yes Medical Necessity: Significant Comorbidiites Make Outpatient Treatment Too Risky, Need Close Monitoring Due to Risk of Patient Decompensation, Risk of Complication if Not Cared For in Hospital, Risk of Diagnosis Which Will Require Inpatient Eval/Care/Monitoring
[2020-01-13] MEDS: ONDANSETRON 4 MG TAB.RAPDIS PO PRN (15:00)
[2020-01-14] MEDS: PANTOPRAZOLE SODIUM 40 MG TABLET.DR PO SCH ×2 (05:45→18:00)
[2020-01-14] MEDS: HYDRALAZINE HCL 25 MG TABLET PO SCH ×3 (05:45→21:30)
[2020-01-14] MEDS: DIVALPROEX SODIUM 250 MG TABLET.DR PO SCH ×3 (05:45→21:30)
[2020-01-14] MEDS: HEPARIN SOD (PORCINE) 5,000 UNIT/ML 1 ML VIAL SUBCUT SCH ×3 (05:48→21:34)
[2020-01-14] MEDS: HALOPERIDOL LACTATE INJ 5 MG/1 ML VIAL IM PRN (06:46)
[2020-01-14] MEDS: FINASTERIDE 5 MG TABLET PO SCH (09:47)
[2020-01-14] MEDS: BUSPIRONE HCL 10 MG TABLET PO SCH ×2 (09:47→21:33)
[2020-01-14] MEDS: DILTIAZEM HCL 180 MG CAPSULE.CR PO SCH (09:49)
[2020-01-14] MEDS: NICOTINE 21 MG/24 HR PATCH.TD24 TD SCH (09:54)
[2020-01-14] MEDS: FLUTICASONE/VILANTEROL 200-25 MCG/DOSE IH SCH (09:54)
[2020-01-14] MEDS: RISPERIDONE 0.25 MG TABLET PO PRN (09:59)
--- NOTE | 2020-01-14 13:20 | PDOC PROGRESS REPORT ---
Subjective Subjective:: Per previous physician: "59 year old male with history of schizophrenia, gastroparesis reflux disease, COPD, history of hyponatremia was brought to the emergency room after he was found leaning up to both ears after walking for [address] he was an escape from [facility] and was placed on missing person file. Work-up in the ER indicates pneumonia, hyponatremia with a serum sodium of 116.8. ER physician discussed the case with Dr. Webb and also with ICU [employer] technician Dr. Webb was to give 50 mL of 3% normal saline. But ICU attending thinks patient does need to be in ICU does not need to be in 3% normal saline. Dr. arredondo called me for admission. After discussion with Dr. Webb, I requested Dr. Arredondo to give 3% normal saline 50 cc over 1 and half hour. I went to see the patient and he told me patient has a seizure-like activity and is able to give a Keppra. Also found to have a short brief of V. tach in the emergency room. The nurses have a hard time keeping the IV line in and he pulled a couple of IV lines. He was given a Catemine and IV line was accessed and started on 3% normal saline. I am going to admit the patient to IMCU but I requested Dr. arredondo to keep the patient in the ER tonight until mental status and hyponatremia improves. He agreed. pt is unable to give any history. 12/26/[id number]-srth-old male admitted with hyponatremia questionable seizure acti vity in the ER brief episode of V. tach in the ER. Patient was given a loading dose of Dilantin 1 g now he is on IV Dilantin 100 mg twice a day. Serum sodium came up to 126 plan is to repeat the chemistry now. Psych consult was requested. Plan is to closely monitor the chemistry and mental status. 12/27/2019-patient admitted with hyponatremia of 116 improved to 126. Today's labs are pending. Possible seizure in the ER and he was given Dilantin loading dose and presently on Dilantin 100 mg p.o. twice a day. Plan is to discontinue IV Dilantin because no seizure activity was noticed in the last 24 hours. Patient is combative agitated and belligerent to give Geodon 20 mg IM. Psych consult was requested. Patient may need to go to inpatient rehab once medically cleared. 01/07/2020-patient is comfortable in the bed not in distress. Waiting for placement. 01/08/2020-patient is comfortable in the bed communicating well. Not in distress. Waiting for placement. 01/09/2020-patient is comfortable in the bed not in distress. Watching TV. Denies any problems. Waiting for placement. 01/10/2020-patient is comfortably in the bed communicating well not in distress. Waiting for placement. 01/11/2020-patient is agitated this morning. Screaming and yelling at this time. To give Haldol 5 mg im 1dose. 01/12/2020-patient is comfortably in the bed not in distress. Waiting for plac ement." 01/13/2020 Patient very calm and speaking in clear complete sentences this morning. He is not agitated today. Creatinine is gradually rising. Hold lisinopril. Waiting for placement, case management working on this. 01/14/2020 Patient is more agitated today and is anxious. Hess catheter placed yesterday for urinary retention of 1.3 L. Urine is a bit bloody today but does not have susanne blood in it. I explained to the patient that we will need to keep the Hess in place for a few days to allow his bladder to rest. There is a good chance that he will continue retaining urine if the cause is actually his antipsychotics. We will get a UA with reflex culture today. He has no new complaints. Reason For Visit: HYPONATREMIA Physical Exam Vital Signs: Temp Pulse Resp BP Pulse Ox 98.0 F 95 17 112/88 H 98 01/14/20 12:13 01/14/20 07:20 01/14/20 07:20 01/14/20 07:20 01/14/20 07:20 Intake & Output 01/13/20 01/14/20 01/15/20 06:59 06:59 06:59 Intake Total 1342 2070 236 Output Total 1140 2825 200 Balance 202 -755 36 Weight 77.3 kg 77.9 kg Exam: General appearance: PRESENT: no acute distress, well-developed, well-nourished, states he does not like his Hess catheter Head exam: PRESENT: atraumatic, normocephalic Eye exam: PRESENT: conjunctiva pink. ABSENT: scleral icterus Ear exam: PRESENT: normal external ear exam Mouth exam: PRESENT: moist Neck exam: ABSENT: carotid bruit, JVD, lymphadenopathy, thyromegaly Respiratory exam: PRESENT: clear to auscultation alan. ABSENT: rales, rhonchi, wheezes Cardiovascular exam: PRESENT: RRR. ABSENT: diastolic murmur, rubs, systolic murmur Pulses: PRESENT: normal dorsalis pedis pul Vascular exam: PRESENT: normal capillary refill GI/Abdominal exam: PRESENT: normal bowel sounds, soft. ABSENT: distended, guarding, mass, organolmegaly, rebound, tenderness Rectal exam: PRESENT: deferred Extremities exam: PRESENT: full ROM. ABSENT: calf tenderness, clubbing, pedal edema Neurological exam: PRESENT: alert, awake, oriented to person Psychiatric exam: PRESENT: flat affect, normal mood Skin exam: PRESENT: dry, intact, warm Results Laboratory Results: 01/12/20 07:24 01/12/20 07:24 12/25/19 12/25/19 12/25/19 13:39 13:39 13:39 Creatine Kinase 176 H Cancelled Troponin I 0.068 NT-Pro-B Natriuret Pep 12/25/19 12/26/19 21:27 05:40 Creatine Kinase Troponin I 0.127 0.096 NT-Pro-B Natriuret Pep 818 H Impressions: Chest X-Ray 12/29/19 07:00 IMPRESSION: NO ACUTE RADIOGRAPHIC FINDING IN THE CHEST. Assessment and Plan - Diagnosis (1) Acute metabolic encephalopathy Is this a current diagnosis for this admission?: Yes Plan: Multifactorial: Hyponatremia superimposed on schizoaffective disorder, acute urinary retention Psychiatric medications Sodium level gradually keila to normal Trend BMP Needs nursing facility placement with locked unit (2) Altered mental status Qualifiers: Altered mental status type: delirium Qualified Code(s): R41.0 - Disorientation, unspecified Is this a current diagnosis for this admission?: Yes (3) Pneumonia Qualifiers: Pneumonia type: due to unspecified organism Laterality: left Lung location: lower lobe of lung Qualified Code(s): J18.9 - Pneumonia, unspecified organism Is this a current diagnosis for this admission?: Yes (4) Seizure Is this a current diagnosis for this admission?: Yes (5) Tobacco abuse Is this a current diagnosis for this admission?: Yes (6) Acute kidney injury Is this a current diagnosis for this admission?: Yes (7) Hypertension Is this a current diagnosis for this admission?: No (8) Hyponatremia Is this a current diagnosis for this admission?: Yes (9) Acute urinary retention Is this a current diagnosis for this admission?: Yes Plan: Bladder scan revealed 1.3 L retained urine on 01/12, Hess catheter placed UA with reflex culture Needs follow-up with urology - Plan Summary Summary: 12/31/2019 Patient is improved Hyponatremia-serum sodium is up to 134. 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 Continue to monitor intake and output. Continue to monitor sodium levels. Continue fluid restriction. Once his serum sodium is in the normal range we could slightly increase his fluid intake. Acute encephalopathy-secondary to infection and the hyponatremia. Per previous progress notes he does seem to be at his baseline. He has been out of restraints for greater than 24 hours. Continue to monitor. Pneumonia-antibiotics were stopped after 3 to 4 days. The patient is stable. Not sure if this was in fact an aspiration episode. We will continue to monitor CBC and vital signs. Schizophrenia-appreciate psychiatry's input. Current regimen appears to be working. Continue same. Hypertension-blood pressure is increased today. I believe he just resumed his diltiazem, lisinopril and hydralazine. We will continue current medications and monitor blood pressures. Adjust medications accordingly. 01/01/2020 Sodium was 134 yesterday. Will recheck tomorrow. Encephalopathy resolved. Patient appears to be back at baseline. Hypertension-we will increase lisinopril to 20 mg twice a day Schizophrenia-continue current regimen At this point I feel the patient is stable to live in a monitored situation such as a memory care unit. 01/02/2020 Hyponatremia-sodium is up to 135.5. Will recheck on Monday. Schizophrenia-nurse reports that the patient is getting slightly agitated. He pulled his IV out. He is refusing medications. I will order Geodon intramuscularly if absolutely necessary. Hypertension-blood pressure still high. Will discontinue the nitroglycerin. Increase diltiazem to 360 mg and hydralazine to 25 mg every 8 hours. Continue regular vital signs. 01/03/2020 Hypertension-blood pressures are better with medication adjustments. Continue to monitor vital signs. Hyponatremia-sodium is just about normal. We will recheck labs tomorrow. Continue fluid restriction. No evidence of nicotine withdrawal Schizophrenia-doing reasonably well. No reports from the sitter about agitation or aggressive behavior. Awaiting placement in a memory care facility 01/04/2020 The patient was restless today. He was talking about leaving. With gentle redirection he seems to have settled down. He does have some tangential thoughts. See discussion above. Abdominal pain-today he is complaining of some epigastric discomfort. I told him we will initiate acid suppression if it is not already started and try a test dose of liquid antacid. Serum sodium is excellent at 138. I will increase his fluid restriction to 1.5 L. Reviewed the case with psychiatry. Will need to have a plan if he opts to try and elope as he did from the [facility]. I will discuss with his mother. He clearly needs placement. 01/05/2020 Awakens easily today with no agitation. Abdominal pain is reported to be better. Continue acid suppression. Serum sodium yesterday was normal. Recheck labs tomorrow. Awaiting placement. 01/06/2020 Increase Protonix to 40 mg twice a day. Change diet to mechanical soft with cut meats Serum chemistries are pending. Awaiting placement. I did call the patient's mother. I had to leave a message. I updated her on his condition including a little bit of epigastric discomfort and the fact that his serum sodium is better. - Time Time Spent with patient: 15-24 minutes Medications reviewed and adjusted accordingly: Yes Anticipated Discharge Disposition: Psych Hospital/Unit Anticipated Discharge Timeframe: within 24 hours - Inpatient Certification Based on my medical assessment, after consideration of the patient's comorbidities, presenting symptoms, or acuity I expect that the services needed warrant INPATIENT care.: Yes I certify that my determination is in accordance with my understanding of Medicare's requirements for reasonable and necessary INPATIENT services [42 CFR 412.3e].: Yes Medical Necessity: Significant Comorbidiites Make Outpatient Treatment Too Risky, Need Close Monitoring Due to Risk of Patient Decompensation, Risk of Complication if Not Cared For in Hospital, Risk of Diagnosis Which Will Require Inpatient Eval/Care/Monitoring
[2020-01-14] MEDS: GABAPENTIN 300 MG CAPSULE PO SCH (14:59)
[2020-01-14] MEDS: DOXAZOSIN MESYLATE 2 MG TABLET PO SCH (21:32)
[2020-01-15] MEDS: PANTOPRAZOLE SODIUM 40 MG TABLET.DR PO SCH ×2 (06:23→17:30)
[2020-01-15] MEDS: HYDRALAZINE HCL 25 MG TABLET PO SCH ×3 (06:23→22:16)
[2020-01-15] MEDS: DIVALPROEX SODIUM 250 MG TABLET.DR PO SCH ×3 (06:24→22:16)
[2020-01-15] MEDS: HEPARIN SOD (PORCINE) 5,000 UNIT/ML 1 ML VIAL SUBCUT SCH ×3 (06:25→22:18)
[2020-01-15 09:35] LABS: ANION GAP 9 (5-19); BLOOD UREA NITROGEN 35 mg/dL (7-20); CALCIUM 9.2 mg/dL (8.4-10.2); CARBON DIOXIDE 22 mmol/L (22-30); CHLORIDE 101 mmol/L (98-107); GLUCOSE 88 mg/dL (75-110); POTASSIUM 4.6 mmol/L (3.6-5.0)
[2020-01-15] MEDS: NICOTINE 21 MG/24 HR PATCH.TD24 TD SCH (09:43)
[2020-01-15] MEDS: FLUTICASONE/VILANTEROL 200-25 MCG/DOSE IH SCH (09:43)
[2020-01-15] MEDS: DILTIAZEM HCL 180 MG CAPSULE.CR PO SCH (09:43)
[2020-01-15] MEDS: BUSPIRONE HCL 10 MG TABLET PO SCH ×2 (09:44→22:15)
[2020-01-15] MEDS: FINASTERIDE 5 MG TABLET PO SCH (09:44)
[2020-01-15] MEDS: GABAPENTIN 300 MG CAPSULE PO SCH (11:24)
--- NOTE | 2020-01-15 12:33 | PDOC PROGRESS REPORT ---
Subjective Subjective:: Per previous physician: "59 year old male with history of schizophrenia, gastroparesis reflux disease, COPD, history of hyponatremia was brought to the emergency room after he was found leaning up to both ears after walking for [address] he was an escape from [facility] and was placed on missing person file. Work-up in the ER indicates pneumonia, hyponatremia with a serum sodium of 116.8. ER physician discussed the case with Dr. Webb and also with ICU director of enterprise strategy Dr. Webb was to give 50 mL of 3% normal saline. But ICU attending thinks patient does need to be in ICU does not need to be in 3% normal saline. Dr. arredondo called me for admission. After discussion with Dr. Webb, I requested Dr. Arredondo to give 3% normal saline 50 cc over 1 and half hour. I went to see the patient and he told me patient has a seizure-like activity and is able to give a Keppra. Also found to have a short brief of V. tach in the emergency room. The nurses have a hard time keeping the IV line in and he pulled a couple of IV lines. He was given a Catemine and IV line was accessed and started on 3% normal saline. I am going to admit the patient to IMCU but I requested Dr. arredondo to keep the patient in the ER tonight until mental status and hyponatremia improves. He agreed. pt is unable to give any history. 12/[id number]-ynak-old male admitted with hyponatremia questionable seizure acti vity in the ER brief episode of V. tach in the ER. Patient was given a loading dose of Dilantin 1 g now he is on IV Dilantin 100 mg twice a day. Serum sodium came up to 126 plan is to repeat the chemistry now. Psych consult was requested. Plan is to closely monitor the chemistry and mental status. 12/27/2019-patient admitted with hyponatremia of 116 improved to 126. Today's labs are pending. Possible seizure in the ER and he was given Dilantin loading dose and presently on Dilantin 100 mg p.o. twice a day. Plan is to discontinue IV Dilantin because no seizure activity was noticed in the last 24 hours. Patient is combative agitated and belligerent to give Geodon 20 mg IM. Psych consult was requested. Patient may need to go to inpatient rehab once medically cleared. 01/07/2020-patient is comfortable in the bed not in distress. Waiting for placement. 01/08/2020-patient is comfortable in the bed communicating well. Not in distress. Waiting for placement. 01/09/2020-patient is comfortable in the bed not in distress. Watching TV. Denies any problems. Waiting for placement. 01/10/2020-patient is comfortably in the bed communicating well not in distress. Waiting for placement. 01/11/2020-patient is agitated this morning. Screaming and yelling at this time. To give Haldol 5 mg im 1dose. 01/12/2020-patient is comfortably in the bed not in distress. Waiting for plac ement." 01/13/2020 Patient very calm and speaking in clear complete sentences this morning. He is not agitated today. Creatinine is gradually rising. Hold lisinopril. Waiting for placement, case management working on this. 01/14/2020 Patient is more agitated today and is anxious. Hess catheter placed yesterday for urinary retention of 1.3 L. Urine is a bit bloody today but does not have susanne blood in it. I explained to the patient that we will need to keep the Hess in place for a few days to allow his bladder to rest. There is a good chance that he will continue retaining urine if the cause is actually his antipsychotics. We will get a UA with reflex culture today. He has no new complaints. 01/15/2020 Patient is very calm today and states he is comfortable. The urine in his Hess collection bag is much clearer today with minimal blood in it at all. I think we can try a void trial tomorrow and see if he continues to retain. If he does continue to retain, he will need to keep his Hess catheter in place and have a prompt urology follow-up outpatient. Creatinine is improving today. Patient is appropriate to go to facility when we have one available. Reason For Visit: HYPONATREMIA Physical Exam Vital Signs: Temp Pulse Resp BP Pulse Ox 97.8 F 90 17 108/60 97 01/15/20 07:24 01/15/20 07:24 01/15/20 07:24 01/15/20 07:24 01/15/20 07:24 Intake & Output 01/14/20 01/15/20 01/16/20 06:59 06:59 06:59 Intake Total 1318 1160 Output Total 7997 8630 Balance -755 -531 Weight 77.9 kg 79 kg Exam: General appearance: PRESENT: no acute distress, well-developed, well-nourished, states he feels good today Head exam: PRESENT: atraumatic, normocephalic Eye exam: PRESENT: conjunctiva pink. ABSENT: scleral icterus Ear exam: PRESENT: normal external ear exam Mouth exam: PRESENT: moist Neck exam: ABSENT: carotid bruit, JVD, lymphadenopathy, thyromegaly Respiratory exam: PRESENT: clear to auscultation alan. ABSENT: rales, rhonchi, wheezes Cardiovascular exam: PRESENT: RRR. ABSENT: diastolic murmur, rubs, systolic murmur Pulses: PRESENT: normal dorsalis pedis pul Vascular exam: PRESENT: normal capillary refill GI/Abdominal exam: PRESENT: normal bowel sounds, soft. ABSENT: distended, guarding, mass, organolmegaly, rebound, tenderness Rectal exam: PRESENT: deferred Extremities exam: PRESENT: full ROM. ABSENT: calf tenderness, clubbing, pedal edema Neurological exam: PRESENT: alert, awake, oriented to person Psychiatric exam: PRESENT: flat affect, normal mood Skin exam: PRESENT: dry, intact, warm Results Laboratory Results: 01/12/20 07:24 01/15/20 08:40 01/15/20 08:40 Sodium 132.3 L Potassium 4.6 Chloride 101 Carbon Dioxide 22 Anion Gap 9 BUN 35 H Creatinine 1.43 H Est GFR ( Amer) > 60 Glucose 88 Calcium 9.2 12/25/19 12/25/19 12/25/19 13:39 13:39 13:39 Creatine Kinase 176 H Cancelled Troponin I 0.068 NT-Pro-B Natriuret Pep 12/25/19 12/26/19 21:27 05:40 Creatine Kinase Troponin I 0.127 0.096 NT-Pro-B Natriuret Pep 818 H Impressions: Chest X-Ray 12/29/19 07:00 IMPRESSION: NO ACUTE RADIOGRAPHIC FINDING IN THE CHEST. Assessment and Plan - Diagnosis (1) Acute metabolic encephalopathy Is this a current diagnosis for this admission?: Yes Plan: Multifactorial: Hyponatremia superimposed on schizoaffective disorder, acute urinary retention Psychiatric medications Sodium level gradually keila to normal Trend BMP Needs nursing facility placement with locked unit Likely at baseline mentation (2) Altered mental status Qualifiers: Altered mental status type: delirium Qualified Code(s): R41.0 - Disorientation, unspecified Is this a current diagnosis for this admission?: Yes (3) Pneumonia Qualifiers: Pneumonia type: due to unspecified organism Laterality: left Lung location: lower lobe of lung Qualified Code(s): J18.9 - Pneumonia, unspecified organism Is this a current diagnosis for this admission?: Yes Plan: Per previous physician: "Chest x-ray suggestive of atelectasis versus pneumonia. Unable to determine if this is an aspiration pneumonia, although, it does remain a possible cause due to the patient's altered mentation. Blood cultures (1/4 bottles) grew staph epidermidis; likely contaminant. Sputum culture not obtained. Repeat CXR is clear. Patient remains afebrile with clear lung sounds and maintaining oxygen saturations on room air. Leukocytosis trending down; 14.1-> 12.8 Patient is provided supplemental oxygen as needed maintain saturations greater than 89%. Currently maintaining oxygen saturations on room air. Vancomycin was discontinued day #3, Zosyn discontinued day #4. As needed nebulizer treatments. He is placed on Robitussin as needed. Pulmonary toilet is encouraged with incentive spirometer, flutter valve, early ambulation 01/07/2020-patient is presently not on antibiotics. Afebrile. Blood pressure is stable. WBC count within normal limits. 01/09/2020-pulse ox today is 97% on room air. Afebrile. Blood pressures are stable. Patient is afebrile at this time. 01/10/20-pulse oxes are stable. Blood pressure stable. Not on antibiotics at this time." Resolved (4) Seizure Is this a current diagnosis for this admission?: Yes Plan: Per previous physician: "Seizure activity >72 hours Seizure activity noted while in the emergency department. Received loading dose of Dilantin followed by twice daily dosing until the patient has been seizure-free for greater than 48 hours. Have discontinued. Sodium is now improved and no longer a potential cause of seizure activity (129.5 today). We will continue seizure precautions and monitor closely." No seizures here (5) Tobacco abuse Is this a current diagnosis for this admission?: Yes (6) Acute kidney injury Is this a current diagnosis for this admission?: Yes Plan: due to NADIYA inhibitor and urinary retention Bladder scan revealed 1.3 L retention, Hess placed Hold NADIYA inhibitor Void trial, if he fails he will need to keep Hess and have prompt follow-up with urology (7) Hypertension Is this a current diagnosis for this admission?: No (8) Hyponatremia Is this a current diagnosis for this admission?: Yes (9) Acute urinary retention Is this a current diagnosis for this admission?: Yes - Plan Summary Summary: 12/31/2019 Patient is improved Hyponatremia-serum sodium is up to 134. 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 Continue to monitor intake and output. Continue to monitor sodium levels. Continue fluid restriction. Once his serum sodium is in the normal range we could slightly increase his fluid intake. Acute encephalopathy-secondary to infection and the hyponatremia. Per previous progress notes he does seem to be at his baseline. He has been out of restraints for greater than 24 hours. Continue to monitor. Pneumonia-antibiotics were stopped after 3 to 4 days. The patient is stable. Not sure if this was in fact an aspiration episode. We will continue to monitor CBC and vital signs. Schizophrenia-appreciate psychiatry's input. Current regimen appears to be working. Continue same. Hypertension-blood pressure is increased today. I believe he just resumed his diltiazem, lisinopril and hydralazine. We will continue current medications and monitor blood pressures. Adjust medications accordingly. 01/01/2020 Sodium was 134 yesterday. Will recheck tomorrow. Encephalopathy resolved. Patient appears to be back at baseline. Hypertension-we will increase lisinopril to 20 mg twice a day Schizophrenia-continue current regimen At this point I feel the patient is stable to live in a monitored situation such as a memory care unit. 01/02/2020 Hyponatremia-sodium is up to 135.5. Will recheck on Monday. Schizophrenia-nurse reports that the patient is getting slightly agitated. He pulled his IV out. He is refusing medications. I will order Geodon intramuscularly if absolutely necessary. Hypertension-blood pressure still high. Will discontinue the nitroglycerin. Increase diltiazem to 360 mg and hydralazine to 25 mg every 8 hours. Continue regular vital signs. 01/03/2020 Hypertension-blood pressures are better with medication adjustments. Continue to monitor vital signs. Hyponatremia-sodium is just about normal. We will recheck labs tomorrow. Continue fluid restriction. No evidence of nicotine withdrawal Schizophrenia-doing reasonably well. No reports from the sitter about agitation or aggressive behavior. Awaiting placement in a memory care facility 01/04/2020 The patient was restless today. He was talking about leaving. With gentle redirection he seems to have settled down. He does have some tangential thoughts. See discussion above. Abdominal pain-today he is complaining of some epigastric discomfort. I told him we will initiate acid suppression if it is not already started and try a test dose of liquid antacid. Serum sodium is excellent at 138. I will increase his fluid restriction to 1.5 L. Reviewed the case with psychiatry. Will need to have a plan if he opts to try and elope as he did from the [facility]. I will discuss with his mother. He clearly needs placement. 01/05/2020 Awakens easily today with no agitation. Abdominal pain is reported to be better. Continue acid suppression. Serum sodium yesterday was normal. Recheck labs tomorrow. Awaiting placement. 01/06/2020 Increase Protonix to 40 mg twice a day. Change diet to mechanical soft with cut meats Serum chemistries are pending. Awaiting placement. I did call the patient's mother. I had to leave a message. I updated her on his condition including a little bit of epigastric discomfort and the fact that his serum sodium is better. - Time Time Spent with patient: 25-34 minutes Medications reviewed and adjusted accordingly: Yes Anticipated Discharge Disposition: Psych Hospital/Unit Anticipated Discharge Timeframe: within 24 hours - Inpatient Certification Based on my medical assessment, after consideration of the patient's comor bidities, presenting symptoms, or acuity I expect that the services needed warrant INPATIENT care.: Yes I certify that my determination is in accordance with my understanding of Medicare's requirements for reasonable and necessary INPATIENT services [42 CFR 412.3e].: Yes Medical Necessity: Significant Comorbidiites Make Outpatient Treatment Too Risky, Need Close Monitoring Due to Risk of Patient Decompensation, Risk of Complication if Not Cared For in Hospital, Risk of Diagnosis Which Will Require Inpatient Eval/Care/Monitoring
[2020-01-15] MEDS: TAMSULOSIN HCL 0.4 MG CAP.SR.24H PO SCH (17:30)
[2020-01-15] MEDS: DOXAZOSIN MESYLATE 2 MG TABLET PO SCH (22:17)
[2020-01-15] MEDS: MAG HYDROX/AL HYDROX/SIMETH SUSP 30 ML UDCUP PO PRN (22:55)
[2020-01-16] MEDS: ACETAMINOPHEN 325 MG TABLET PO PRN (00:58)
[2020-01-16] MEDS: HEPARIN SOD (PORCINE) 5,000 UNIT/ML 1 ML VIAL SUBCUT SCH ×4 (05:41→22:38)
[2020-01-16] MEDS: HYDRALAZINE HCL 25 MG TABLET PO SCH ×3 (05:42→22:39)
[2020-01-16] MEDS: DIVALPROEX SODIUM 250 MG TABLET.DR PO SCH ×3 (05:42→22:39)
[2020-01-16] MEDS: PANTOPRAZOLE SODIUM 40 MG TABLET.DR PO SCH ×2 (05:42→17:15)
[2020-01-16 06:53] LABS: ABSOLUTE BASOPHILS # (AUTO) 0.1 10^3/uL (0.0-0.2); ABSOLUTE EOSINOPHILS # (AUTO) 0.4 10^3/uL (0.0-0.6); ABSOLUTE LYMPHOCYTES (AUTO) 3.2 10^3/uL (0.5-4.7); ABSOLUTE MONOCYTES (AUTO) 0.6 10^3/uL (0.1-1.4); ABSOLUTE NEUT (AUTO) 5.5 10^3/uL (1.7-8.2); BASOPHILS % (AUTO) 1.3 % (0-2); EOSINOPHILS % (AUTO) 3.9 % (0-6); HEMATOCRIT 35.4 % (37.9-51.0); HEMOGLOBIN 12.7 g/dL (13.5-17.0); LYMPHOCYTES % (AUTO) 32.5 % (13-45); MEAN CORPUSCULAR HEMOGLOBIN 31.2 pg (27.0-33.4); MEAN CORPUSCULAR VOLUME 87 fl (80-97); MONOCYTES % (AUTO) 6.6 % (3-13); PLATELET COUNT 274 10^3/uL (150-450); RED BLOOD COUNT 4.08 10^6/uL (4.35-5.55); RED CELL DISTRIBUTION WIDTH 14.9 % (11.5-14.0); SEGMENTED NEUTROPHILS % (AUTO) 55.7 % (42-78); TOTAL CELLS COUNTED % (AUTO) 100 %; WHITE BLOOD COUNT 9.8 10^3/uL (4.0-10.5)
[2020-01-16 07:12] LABS: ANION GAP 9 (5-19); BLOOD UREA NITROGEN 39 mg/dL (7-20); CARBON DIOXIDE 22 mmol/L (22-30); CHLORIDE 101 mmol/L (98-107); GLUCOSE 100 mg/dL (75-110); POTASSIUM 4.4 mmol/L (3.6-5.0)
[2020-01-16] MEDS: FLUTICASONE/VILANTEROL 200-25 MCG/DOSE IH SCH (10:29)
[2020-01-16] MEDS: DILTIAZEM HCL 180 MG CAPSULE.CR PO SCH (10:29)
[2020-01-16] MEDS: BUSPIRONE HCL 10 MG TABLET PO SCH ×2 (10:30→22:38)
[2020-01-16] MEDS: NICOTINE 21 MG/24 HR PATCH.TD24 TD SCH (10:30)
[2020-01-16] MEDS: FINASTERIDE 5 MG TABLET PO SCH (10:30)
--- NOTE | 2020-01-16 11:57 | PDOC PROGRESS REPORT ---
Subjective Subjective:: Per previous physician: "59 year old male with history of schizophrenia, gastroparesis reflux disease, COPD, history of hyponatremia was brought to the emergency room after he was found leaning up to both ears after walking for [address] he was an escape from [facility] and was placed on missing person file. Work-up in the ER indicates pneumonia, hyponatremia with a serum sodium of 116.8. ER physician discussed the case with Dr. Webb and also with ICU asbestos textile supervisor Dr. Webb was to give 50 mL of 3% normal saline. But ICU attending thinks patient does need to be in ICU does not need to be in 3% normal saline. Dr. arredondo called me for admission. After discussion with Dr. Webb, I requested Dr. Arredondo to give 3% normal saline 50 cc over 1 and half hour. I went to see the patient and he told me patient has a seizure-like activity and is able to give a Keppra. Also found to have a short brief of V. tach in the emergency room. The nurses have a hard time keeping the IV line in and he pulled a couple of IV lines. He was given a Catemine and IV line was accessed and started on 3% normal saline. I am going to admit the patient to IMCU but I requested Dr. arredondo to keep the patient in the ER tonight until mental status and hyponatremia improves. He agreed. pt is unable to give any history. [id number]-ywiy-old male admitted with hyponatremia questionable seizure acti vity in the ER brief episode of V. tach in the ER. Patient was given a loading dose of Dilantin 1 g now he is on IV Dilantin 100 mg twice a day. Serum sodium came up to 126 plan is to repeat the chemistry now. Psych consult was requested. Plan is to closely monitor the chemistry and mental status. 12/27/2019-patient admitted with hyponatremia of 116 improved to 126. Today's labs are pending. Possible seizure in the ER and he was given Dilantin loading dose and presently on Dilantin 100 mg p.o. twice a day. Plan is to discontinue IV Dilantin because no seizure activity was noticed in the last 24 hours. Patient is combative agitated and belligerent to give Geodon 20 mg IM. Psych consult was requested. Patient may need to go to inpatient rehab once medically cleared. 01/07/2020-patient is comfortable in the bed not in distress. Waiting for placement. 01/08/2020-patient is comfortable in the bed communicating well. Not in distress. Waiting for placement. 01/09/2020-patient is comfortable in the bed not in distress. Watching TV. Denies any problems. Waiting for placement. 01/10/2020-patient is comfortably in the bed communicating well not in distress. Waiting for placement. 01/11/2020-patient is agitated this morning. Screaming and yelling at this time. To give Haldol 5 mg im 1dose. 01/12/2020-patient is comfortably in the bed not in distress. Waiting for plac ement." 01/13/2020 Patient very calm and speaking in clear complete sentences this morning. He is not agitated today. Creatinine is gradually rising. Hold lisinopril. Waiting for placement, case management working on this. 01/14/2020 Patient is more agitated today and is anxious. Hess catheter placed yesterday for urinary retention of 1.3 L. Urine is a bit bloody today but does not have susanne blood in it. I explained to the patient that we will need to keep the Hess in place for a few days to allow his bladder to rest. There is a good chance that he will continue retaining urine if the cause is actually his antipsychotics. We will get a UA with reflex culture today. He has no new complaints. 01/15/2020 Patient is very calm today and states he is comfortable. The urine in his Hess collection bag is much clearer today with minimal blood in it at all. I think we can try a void trial tomorrow and see if he continues to retain. If he does continue to retain, he will need to keep his Hess catheter in place and have a prompt urology follow-up outpatient. Creatinine is improving today. Patient is appropriate to go to facility when we have one available. 01/16/2020 Urine is completely clear today and we can attempt a void trial. If he continues retaining urine he will need to leave the hospital with a Hess in place and a follow-up with urology. We still do not have a place for him to be dispositioned to at discharge. Otherwise, he has no new complaints and seems rather calm today. Creatinine is lower today. Reason For Visit: HYPONATREMIA Physical Exam Vital Signs: Temp Pulse Resp BP Pulse Ox 98.2 F 94 18 109/64 93 01/16/20 08:32 01/16/20 08:00 01/16/20 08:00 01/16/20 08:00 01/16/20 08:00 Intake & Output 01/15/20 01/16/20 01/17/20 06:59 06:59 06:59 Intake Total 1169 1550 Output Total 1700 1370 Balance -531 180 Weight 79 kg 79 kg Exam: General appearance: PRESENT: no acute distress, well-developed, well-nourished, states he would be glad to have his Hess removed today Head exam: PRESENT: atraumatic, normocephalic Eye exam: PRESENT: conjunctiva pink. ABSENT: scleral icterus Ear exam: PRESENT: normal external ear exam Mouth exam: PRESENT: moist Neck exam: ABSENT: carotid bruit, JVD, lymphadenopathy, thyromegaly Respiratory exam: PRESENT: clear to auscultation alan. ABSENT: rales, rhonchi, wheezes Cardiovascular exam: PRESENT: RRR. ABSENT: diastolic murmur, rubs, systolic murmur Pulses: PRESENT: normal dorsalis pedis pul Vascular exam: PRESENT: normal capillary refill GI/Abdominal exam: PRESENT: normal bowel sounds, soft. ABSENT: distended, guarding, mass, organolmegaly, rebound, tenderness Rectal exam: PRESENT: deferred Extremities exam: PRESENT: full ROM. ABSENT: calf tenderness, clubbing, pedal edema Neurological exam: PRESENT: alert, awake, oriented to person Psychiatric exam: PRESENT: flat affect, normal mood Skin exam: PRESENT: dry, intact, warm Results Laboratory Results: 01/16/20 06:22 01/16/20 06:22 01/16/20 01/16/20 06:22 06:22 WBC 9.8 RBC 4.08 L Hgb 12.7 L Hct 35.4 L MCV 87 MCH 31.2 MCHC 36.0 RDW 14.9 H Plt Count 274 Seg Neutrophils % 55.7 Sodium 131.8 L Potassium 4.4 Chloride 101 Carbon Dioxide 22 Anion Gap 9 BUN 39 H Creatinine 1.41 H Est GFR ( Amer) > 60 Glucose 100 Calcium 9.0 12/25/19 12/25/19 12/25/19 13:39 13:39 13:39 Creatine Kinase 176 H Cancelled Troponin I 0.068 NT-Pro-B Natriuret Pep 12/25/19 12/26/19 21:27 05:40 Creatine Kinase Troponin I 0.127 0.096 NT-Pro-B Natriuret Pep 818 H Impressions: Chest X-Ray 12/29/19 07:00 IMPRESSION: NO ACUTE RADIOGRAPHIC FINDING IN THE CHEST. Assessment and Plan - Diagnosis (1) Acute metabolic encephalopathy Is this a current diagnosis for this admission?: Yes Plan: Multifactorial: Hyponatremia superimposed on schizoaffective disorder, acute u rinary retention Psychiatric medications Sodium level gradually keila to normal Trend BMP Needs nursing facility placement with locked unit Likely at baseline mentation Stable (2) Altered mental status Qualifiers: Altered mental status type: delirium Qualified Code(s): R41.0 - Disorientation, unspecified Is this a current diagnosis for this admission?: Yes (3) Pneumonia Qualifiers: Pneumonia type: due to unspecified organism Laterality: left Lung location: lower lobe of lung Qualified Code(s): J18.9 - Pneumonia, unspecified organism Is this a current diagnosis for this admission?: Yes (4) Seizure Is this a current diagnosis for this admission?: Yes (5) Tobacco abuse Is this a current diagnosis for this admission?: Yes (6) Acute kidney injury Is this a current diagnosis for this admission?: Yes (7) Hypertension Is this a current diagnosis for this admission?: No (8) Hyponatremia Is this a current diagnosis for this admission?: Yes (9) Acute urinary retention Is this a current diagnosis for this admission?: Yes Plan: Bladder scan revealed 1.3 L retained urine on 01/12, Hess catheter placed UA with reflex culture Needs follow-up with urology 01/16/2020 Urine has cleared and is no longer bloody, voiding trial today, replace Hess if he continues to retain urine - Plan Summary Summary: 12/31/2019 Patient is improved Hyponatremia-serum sodium is up to 134. 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 Continue to monitor intake and output. Continue to monitor sodium levels. Continue fluid restriction. Once his serum sodium is in the normal range we could slightly increase his fluid intake. Acute encephalopathy-secondary to infection and the hyponatremia. Per previous progress notes he does seem to be at his baseline. He has been out of restraints for greater than 24 hours. Continue to monitor. Pneumonia-antibiotics were stopped after 3 to 4 days. The patient is stable. Not sure if this was in fact an aspiration episode. We will continue to monitor CBC and vital signs. Schizophrenia-appreciate psychiatry's input. Current regimen appears to be working. Continue same. Hypertension-blood pressure is increased today. I believe he just resumed his diltiazem, lisinopril and hydralazine. We will continue current medications and monitor blood pressures. Adjust medications accordingly. 01/01/2020 Sodium was 134 yesterday. Will recheck tomorrow. Encephalopathy resolved. Patient appears to be back at baseline. Hypertension-we will increase lisinopril to 20 mg twice a day Schizophrenia-continue current regimen At this point I feel the patient is stable to live in a monitored situation such as a memory care unit. 01/02/2020 Hyponatremia-sodium is up to 135.5. Will recheck on Monday. Schizophrenia-nurse reports that the patient is getting slightly agitated. He pulled his IV out. He is refusing medications. I will order Geodon intramuscularly if absolutely necessary. Hypertension-blood pressure still high. Will discontinue the nitroglycerin. Increase diltiazem to 360 mg and hydralazine to 25 mg every 8 hours. Continue regular vital signs. 01/03/2020 Hypertension-blood pressures are better with medication adjustments. Continue to monitor vital signs. Hyponatremia-sodium is just about normal. We will recheck labs tomorrow. Continue fluid restriction. No evidence of nicotine withdrawal Schizophrenia-doing reasonably well. No reports from the sitter about agitation or aggressive behavior. Awaiting placement in a memory care facility 01/04/2020 The patient was restless today. He was talking about leaving. With gentle redirection he seems to have settled down. He does have some tangential thoughts. See discussion above. Abdominal pain-today he is complaining of some epigastric discomfort. I told him we will initiate acid suppression if it is not already started and try a test dose of liquid antacid. Serum sodium is excellent at 138. I will increase his fluid restriction to 1.5 L. Reviewed the case with psychiatry. Will need to have a plan if he opts to try and elope as he did from the [facility]. I will discuss with his mother. He clearly needs placement. 01/05/2020 Awakens easily today with no agitation. Abdominal pain is reported to be better. Continue acid suppression. Serum sodium yesterday was normal. Recheck labs tomorrow. Awaiting placement. 01/06/2020 Increase Protonix to 40 mg twice a day. Change diet to mechanical soft with cut meats Serum chemistries are pending. Awaiting placement. I did call the patient's mother. I had to leave a message. I updated her on his condition including a little bit of epigastric discomfort and the fact that his serum sodium is better. - Time Time Spent with patient: 15-24 minutes Medications reviewed and adjusted accordingly: Yes Anticipated Discharge Disposition: Psych Hospital/Unit Anticipated Discharge Timeframe: within 24 hours - Inpatient Certification Based on my medical assessment, after consideration of the patient's comorbidities, presenting symptoms, or acuity I expect that the services needed warrant INPATIENT care.: Yes I certify that my determination is in accordance with my understanding of Medicare's requirements for reasonable and necessary INPATIENT services [42 CFR 412.3e].: Yes Medical Necessity: Significant Comorbidiites Make Outpatient Treatment Too Risky, Need Close Monitoring Due to Risk of Patient Decompensation, Risk of Complication if Not Cared For in Hospital, Risk of Diagnosis Which Will Require Inpatient Eval/Care/Monitoring
[2020-01-16] MEDS: GABAPENTIN 300 MG CAPSULE PO SCH (13:01)
[2020-01-16] MEDS: TAMSULOSIN HCL 0.4 MG CAP.SR.24H PO SCH (17:15)
[2020-01-16] MEDS: DOXAZOSIN MESYLATE 2 MG TABLET PO SCH (22:38)
[2020-01-16 23:21] LABS: APPEARANCE,URINE SLIGHTLY-CLOUDY; BILIRUBIN,URINE NEGATIVE (NEGATIVE); COLOR,URINE YELLOW; GLUCOSE, URINE NEGATIVE (NEGATIVE); KETONES,URINE NEGATIVE (NEGATIVE); PROTEIN,URINE NEGATIVE (NEGATIVE); URINE SPECIFIC GRAVITY 1.013; UROBILINOGEN,URINE NEGATIVE mg/dL (<2.0)
[2020-01-17] MEDS: HEPARIN SOD (PORCINE) 5,000 UNIT/ML 1 ML VIAL SUBCUT SCH ×3 (05:46→21:04)
[2020-01-17] MEDS: DIVALPROEX SODIUM 250 MG TABLET.DR PO SCH (05:46)
[2020-01-17] MEDS: HYDRALAZINE HCL 25 MG TABLET PO SCH ×3 (05:46→21:12)
[2020-01-17] MEDS: PANTOPRAZOLE SODIUM 40 MG TABLET.DR PO SCH ×2 (05:47→18:08)
[2020-01-17 06:16] LABS: ANION GAP 8 (5-19); BLOOD UREA NITROGEN 31 mg/dL (7-20); CARBON DIOXIDE 24 mmol/L (22-30); CHLORIDE 98 mmol/L (98-107); GLUCOSE 98 mg/dL (75-110)
[2020-01-17] MEDS: HALOPERIDOL LACTATE INJ 5 MG/1 ML VIAL IM PRN (08:00)
[2020-01-17] MEDS: FINASTERIDE 5 MG TABLET PO SCH (09:02)
[2020-01-17] MEDS: DILTIAZEM HCL 180 MG CAPSULE.CR PO SCH (09:02)
[2020-01-17] MEDS: NICOTINE 21 MG/24 HR PATCH.TD24 TD SCH (09:03)
[2020-01-17] MEDS: RISPERIDONE 0.25 MG TABLET PO PRN (09:03)
[2020-01-17] MEDS: BUSPIRONE HCL 10 MG TABLET PO SCH ×2 (09:03→21:12)
[2020-01-17] MEDS: FLUTICASONE/VILANTEROL 200-25 MCG/DOSE IH SCH (09:03)
--- NOTE | 2020-01-17 10:45 | PDOC CONSULTATION ---
Consultation-Blank Consultation: Clinical Concerns/requesting medication recommendations: Continued behaviors; mainly sun downing Concerns for neurodegenerative processes which would mean co-occurring mental health and dementia like processes Updated Medication recommendations made by the psychiatric medication provider Dr. Elmo TREJO., includes: Please use Clonidine 0.1mg twice daily as needed for calming effect (please check vitals can support) Increase Depakote to 500mg twice daily for mood stabilization Discontinue Haldol and Geodon Attending physicians are asked to consider avoiding prescribing benzodiazepines and antipsychotics (e.g. Haldol and Geodon) as these have been known to cause and/or increase symptoms of aggression, psychosis and or paranoia in patients with neurodegenerative processes such as dementia, Alzheimer's disease, traumatic brain injury, etc. It is also noted antipsychotics, both the newer atypical antipsychotics and the older drugs, have been associated with the development of hyponatraemia. Continue Buspar 5MG twice a day for anxiety/calming effect/depression/sleep Continue Risperdal 0.25MG twice a day as needed for agitation/psychosis/behaviors Also request updated Head CT given the former one from 2014 had neurodegen erative process language. This is important as we want to see if the neurodegenerative processes are the same or if they worsened in the past 6 years. It helps to know what medications to utilize and avoid.
[2020-01-17] MEDS ORDERED: CLONIDINE HCL 0.1 MG TABLET PO PRN (12:01)
--- NOTE | 2020-01-17 13:57 | PDOC PROGRESS REPORT ---
Subjective Subjective:: Per previous physician: "59 year old male with history of schizophrenia, gastroparesis reflux disease, COPD, history of hyponatremia was brought to the emergency room after he was found leaning up to both ears after walking for [address] he was an escape from [facility] and was placed on missing person file. Work-up in the ER indicates pneumonia, hyponatremia with a serum sodium of 116.8. ER physician discussed the case with Dr. Webb and also with ICU dental floss packer Dr. Webb was to give 50 mL of 3% normal saline. But ICU attending thinks patient does need to be in ICU does not need to be in 3% normal saline. Dr. arredondo called me for admission. After discussion with Dr. Webb, I requested Dr. Arredondo to give 3% normal saline 50 cc over 1 and half hour. I went to see the patient and he told me patient has a seizure-like activity and is able to give a Keppra. Also found to have a short brief of V. tach in the emergency room. The nurses have a hard time keeping the IV line in and he pulled a couple of IV lines. He was given a Catemine and IV line was accessed and started on 3% normal saline. I am going to admit the patient to IMCU but I requested Dr. arredondo to keep the patient in the ER tonight until mental status and hyponatremia improves. He agreed. pt is unable to give any history. [id number]-old male admitted with hyponatremia questionable seizure acti vity in the ER brief episode of V. tach in the ER. Patient was given a loading dose of Dilantin 1 g now he is on IV Dilantin 100 mg twice a day. Serum sodium came up to 126 plan is to repeat the chemistry now. Psych consult was requested. Plan is to closely monitor the chemistry and mental status. 12/27/2019-patient admitted with hyponatremia of 116 improved to 126. Today's labs are pending. Possible seizure in the ER and he was given Dilantin loading dose and presently on Dilantin 100 mg p.o. twice a day. Plan is to discontinue IV Dilantin because no seizure activity was noticed in the last 24 hours. Patient is combative agitated and belligerent to give Geodon 20 mg IM. Psych consult was requested. Patient may need to go to inpatient rehab once medically cleared. 01/07/2020-patient is comfortable in the bed not in distress. Waiting for placement. 01/08/2020-patient is comfortable in the bed communicating well. Not in distress. Waiting for placement. 01/09/2020-patient is comfortable in the bed not in distress. Watching TV. Denies any problems. Waiting for placement. 01/10/2020-patient is comfortably in the bed communicating well not in distress. Waiting for placement. 01/11/2020-patient is agitated this morning. Screaming and yelling at this time. To give Haldol 5 mg im 1dose. 01/12/2020-patient is comfortably in the bed not in distress. Waiting for plac ement." 01/13/2020 Patient very calm and speaking in clear complete sentences this morning. He is not agitated today. Creatinine is gradually rising. Hold lisinopril. Waiting for placement, case management working on this. 01/14/2020 Patient is more agitated today and is anxious. Hess catheter placed yesterday for urinary retention of 1.3 L. Urine is a bit bloody today but does not have susanne blood in it. I explained to the patient that we will need to keep the Hess in place for a few days to allow his bladder to rest. There is a good chance that he will continue retaining urine if the cause is actually his antipsychotics. We will get a UA with reflex culture today. He has no new complaints. 01/15/2020 Patient is very calm today and states he is comfortable. The urine in his Hess collection bag is much clearer today with minimal blood in it at all. I think we can try a void trial tomorrow and see if he continues to retain. If he does continue to retain, he will need to keep his Hess catheter in place and have a prompt urology follow-up outpatient. Creatinine is improving today. Patient is appropriate to go to facility when we have one available. 01/16/2020 Urine is completely clear today and we can attempt a void trial. If he continues retaining urine he will need to leave the hospital with a Hess in place and a follow-up with urology. We still do not have a place for him to be dispositioned to at discharge. Otherwise, he has no new complaints and seems rather calm today. Creatinine is lower today. 01/17/2020 Patient was retaining urine again overnight per nursing notes. I discussed with the nurse that we need to do a postvoid residual to see if he is still retaining. I highly suspect he will continue retaining as his psychiatric medications are probably causing this phenomena. Patient is much more agitated today and is yelling frequently. This is probably due to his urinary retention. Psychiatry was contacted today and they will be changing patient's medications and it would probably be best if they came back to evaluate him in person again. 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 ABSENT: scleral icterus Ear exam: PRESENT: normal external ear exam Mouth exam: PRESENT: moist Neck exam: ABSENT: carotid bruit, JVD, lymphadenopathy, thyromegaly Respiratory exam: PRESENT: clear to auscultation alan. ABSENT: rales, rhonchi, wheezes Cardiovascular exam: PRESENT: RRR. ABSENT: diastolic murmur, rubs, systolic murmur Pulses: PRESENT: normal dorsalis pedis pul Vascular exam: PRESENT: normal capillary refill GI/Abdominal exam: PRESENT: normal bowel sounds, soft. ABSENT: distended, guarding, mass, organolmegaly, rebound, tenderness Rectal exam: PRESENT: deferred Extremities exam: PRESENT: full ROM. ABSENT: calf tenderness, clubbing, pedal edema Neurological exam: PRESENT: alert, awake, oriented to person Psychiatric exam: PRESENT: flat affect, normal mood Skin exam: PRESENT: dry, intact, warm Results Laboratory Results: 01/16/20 06:22 01/17/20 05:48 01/16/20 01/17/20 22:59 05:48 Sodium 129.6 L Potassium 4.0 Chloride 98 Carbon Dioxide 24 Anion Gap 8 BUN 31 H Creatinine 1.25 Est GFR ( Amer) > 60 Glucose 98 Calcium 9.0 Urine Color YELLOW Urine Appearance SLIGHTLY-CLOUDY Urine pH 6.0 Ur Specific [place] 1.013 Urine Protein NEGATIVE Urine Glucose (UA) NEGATIVE Urine Ketones NEGATIVE Urine Blood SMALL H Urine RBC (Auto) 4 12/25/19 12/25/19 12/25/19 13:39 13:39 13:39 Creatine Kinase 176 H Cancelled Troponin I 0.068 NT-Pro-B Natriuret Pep 12/25/19 12/26/19 21:27 05:40 Creatine Kinase Troponin I 0.127 0.096 NT-Pro-B Natriuret Pep 818 H Impressions: Chest X-Ray 12/29/19 07:00 IMPRESSION: NO ACUTE RADIOGRAPHIC FINDING IN THE CHEST. Assessment and Plan - Diagnosis (1) Acute metabolic encephalopathy Is this a current diagnosis for this admission?: Yes Plan: Multifactorial: Hyponatremia superimposed on schizoaffective disorder, acute urinary retention Psychiatric medications Sodium level gradually keila to normal Trend BMP Needs nursing facility placement with locked unit Waxing and waning agitation seems to be his personal baseline mentation (2) Altered mental status Qualifiers: Altered mental status type: delirium Qualified Code(s): R41.0 - Disorientation, unspecified Is this a current diagnosis for this admission?: Yes (3) Pneumonia Qualifiers: Pneumonia type: due to unspecified organism Laterality: left Lung location: lower lobe of lung Qualified Code(s): J18.9 - Pneumonia, unspecified organism Is this a current diagnosis for this admission?: Yes (4) Seizure Is this a current diagnosis for this admission?: Yes (5) Tobacco abuse Is this a current diagnosis for this admission?: Yes (6) Acute kidney injury Is this a current diagnosis for this admission?: Yes (7) Hypertension Is this a current diagnosis for this admission?: No Plan: Per Previous Physician: "Uncontrolled blood pressures at present. Home medications have been reconciled; have resumed home dose Diltiazem, lisinopril, and p.o. hydralazine. Patient is inconsistent with oral medications. Clonidine patch removed overnight related to hypotension. Blood pressures remain soft." stable (8) Hyponatremia Is this a current diagnosis for this admission?: Yes Plan: Per Previous Physician: "Initially treated in the emergency department with 3% normal saline. Sodium is improved; 116.8-> 123.6-> 126.3-> 124.9-> 127.9-> 129.5-> 129.8-> 133.0 Patient with history of hyponatremia and psychogenic polydipsia. Mental health service consultation obtained; they have reviewed his medication regiment and made recommendations with regard to his recurrent episodes of hyponatremia. Nephrology is consulted; appreciate their assistance and recommendations. Liberalize dietary sodium; regular diet. Fluid restricted 750 mL's daily. Strict I&O's. 01/07/2020-patient is comfortable in the bed communicating well. Hyponatremia is resolved. Waiting for placement. Latest serum sodium is 136. 01/08/2020-no acute events in the last 24 hours. The serum sodium is 135.5. Stable. 01/12/20- sodium is 139...stable..hyponatremia resolved" 01/17/2020 Due to psychogenic polydipsia as well as multiple psychiatric medications that reduce sodium (9) Acute urinary retention Is this a current diagnosis for this admission?: Yes Plan: Bladder scan revealed 1.3 L retained urine on 01/12, Hess catheter placed UA with reflex culture Needs follow-up with urology 01/16/2020 Urine has cleared and is no longer bloody, voiding trial today, replace Hess if he continues to retain urine 01/17/2020 Retained urine overnight and was able to urinate a large amount in a.m. Nursing instructed to get PVR and if he is still retaining greater than 200 cc we will need to replace the Hess. Etiology is most likely due to psychiatric medications combined with BPH. Needs urology follow-up outpatient - Plan Summary Summary: 12/31/2019 Patient is improved Hyponatremia-serum sodium is up to 134. 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 Continue to monitor intake and output. Continue to monitor sodium levels. Continue fluid restriction. Once his serum sodium is in the normal range we could slightly increase his fluid intake. Acute encephalopathy-secondary to infection and the hyponatremia. Per previous progress notes he does seem to be at his baseline. He has been out of restraints for greater than 24 hours. Continue to monitor. Pneumonia-antibiotics were stopped after 3 to 4 days. The patient is stable. Not sure if this was in fact an aspiration episode. We will continue to monitor CBC and vital signs. Schizophrenia-appreciate psychiatry's input. Current regimen appears to be working. Continue same. Hypertension-blood pressure is increased today. I believe he just resumed his diltiazem, lisinopril and hydralazine. We will continue current medications and monitor blood pressures. Adjust medications accordingly. 01/01/2020 Sodium was 134 yesterday. Will recheck tomorrow. Encephalopathy resolved. Patient appears to be back at baseline. Hypertension-we will increase lisinopril to 20 mg twice a day Schizophrenia-continue current regimen At this point I feel the patient is stable to live in a monitored situation such as a memory care unit. 01/02/2020 Hyponatremia-sodium is up to 135.5. Will recheck on Monday. Schizophrenia-nurse reports that the patient is getting slightly agitated. He pulled his IV out. He is refusing medications. I will order Geodon intramuscularly if absolutely necessary. Hypertension-blood pressure still high. Will discontinue the nitroglycerin. Increase diltiazem to 360 mg and hydralazine to 25 mg every 8 hours. Continue regular vital signs. 01/03/2020 Hypertension-blood pressures are better with medication adjustments. Continue to monitor vital signs. Hyponatremia-sodium is just about normal. We will recheck labs tomorrow. Continue fluid restriction. No evidence of nicotine withdrawal Schizophrenia-doing reasonably well. No reports from the sitter about agitation or aggressive behavior. Awaiting placement in a memory care facility 01/04/2020 The patient was restless today. He was talking about leaving. With gentle redirection he seems to have settled down. He does have some tangential thoughts. See discussion above. Abdominal pain-today he is complaining of some epigastric discomfort. I told him we will initiate acid suppression if it is not already started and try a test dose of liquid antacid. Serum sodium is excellent at 138. I will increase his fluid restriction to 1.5 L. Reviewed the case with psychiatry. Will need to have a plan if he opts to try and elope as he did from the [facility]. I will discuss with his mother. He clearly needs placement. 01/05/2020 Awakens easily today with no agitation. Abdominal pain is reported to be better. Continue acid suppression. Serum sodium yesterday was normal. Recheck labs tomorrow. Awaiting placement. 01/06/2020 Increase Protonix to 40 mg twice a day. Change diet to mechanical soft with cut meats Serum chemistries are pending. Awaiting placement. I did call the patient's mother. I had to leave a message. I updated her on his condition including a little bit of epigastric discomfort and the fact that his serum sodium is better. - Time Time Spent with patient: 15-24 minutes Anticipated Discharge Disposition: Psych Hospital/Unit Anticipated Discharge Timeframe: within 24 hours - Inpatient Certification Based on my medical assessment, after consideration of the patient's comorbidities, presenting symptoms, or acuity I expect that the services needed warrant INPATIENT care.: Yes I certify that my determination is in accordance with my understanding of Medicare's requirements for reasonable and necessary INPATIENT services [42 CFR 412.3e].: Yes Medical Necessity: Significant Comorbidiites Make Outpatient Treatment Too Risky, Need Close Monitoring Due to Risk of Patient Decompensation, Risk of Complication if Not Cared For in Hospital, Risk of Diagnosis Which Will Require Inpatient Eval/Care/Monitoring
[2020-01-17] MEDS: GABAPENTIN 300 MG CAPSULE PO SCH (14:13)
[2020-01-17] MEDS: DIAZEPAM 5 MG TABLET PO PRN (18:08)
[2020-01-17] MEDS: TAMSULOSIN HCL 0.4 MG CAP.SR.24H PO SCH (18:08)
[2020-01-17] MEDS: DIVALPROEX SODIUM 500 MG TAB.SR.24H PO SCH (21:12)
[2020-01-17] MEDS: RISPERIDONE 0.25 MG TABLET PO SCH (21:12)
[2020-01-17] MEDS: DOXAZOSIN MESYLATE 2 MG TABLET PO SCH (21:13)
[2020-01-17] MEDS ORDERED: DIVALPROEX SODIUM 250 MG TABLET.DR PO SCH (22:00)
[2020-01-18] MEDS: ACETAMINOPHEN 325 MG TABLET PO PRN ×2 (00:33→05:35)
[2020-01-18] MEDS: DIAZEPAM 5 MG TABLET PO PRN (00:35)
[2020-01-18] MEDS: HEPARIN SOD (PORCINE) 5,000 UNIT/ML 1 ML VIAL SUBCUT SCH ×3 (05:32→21:18)
[2020-01-18] MEDS: PANTOPRAZOLE SODIUM 40 MG TABLET.DR PO SCH ×2 (05:35→17:28)
[2020-01-18] MEDS: HYDRALAZINE HCL 25 MG TABLET PO SCH ×3 (05:35→21:23)
[2020-01-18 06:03] LABS: ABSOLUTE BASOPHILS # (AUTO) 0.1 10^3/uL (0.0-0.2); ABSOLUTE EOSINOPHILS # (AUTO) 0.3 10^3/uL (0.0-0.6); ABSOLUTE LYMPHOCYTES (AUTO) 2.2 10^3/uL (0.5-4.7); ABSOLUTE MONOCYTES (AUTO) 0.5 10^3/uL (0.1-1.4); ABSOLUTE NEUT (AUTO) 5.5 10^3/uL (1.7-8.2); BASOPHILS % (AUTO) 1.4 % (0-2); HEMATOCRIT 32.7 % (37.9-51.0); HEMOGLOBIN 11.7 g/dL (13.5-17.0); LYMPHOCYTES % (AUTO) 25.8 % (13-45); MEAN CORPUSCULAR HEMOGLOBIN 31.2 pg (27.0-33.4); MEAN CORPUSCULAR HGB CONC 35.9 g/dL (32.0-36.0); MEAN CORPUSCULAR VOLUME 87 fl (80-97); PLATELET COUNT 268 10^3/uL (150-450); RED BLOOD COUNT 3.76 10^6/uL (4.35-5.55); RED CELL DISTRIBUTION WIDTH 15.3 % (11.5-14.0); SEGMENTED NEUTROPHILS % (AUTO) 63.8 % (42-78); TOTAL CELLS COUNTED % (AUTO) 100 %; WHITE BLOOD COUNT 8.5 10^3/uL (4.0-10.5)
[2020-01-18] MEDS: FINASTERIDE 5 MG TABLET PO SCH (10:28)
[2020-01-18] MEDS: DIVALPROEX SODIUM 500 MG TAB.SR.24H PO SCH ×2 (10:28→21:22)
[2020-01-18] MEDS: RISPERIDONE 0.25 MG TABLET PO SCH ×2 (10:28→21:24)
[2020-01-18] MEDS: FLUTICASONE/VILANTEROL 200-25 MCG/DOSE IH SCH (10:28)
[2020-01-18] MEDS: DILTIAZEM HCL 180 MG CAPSULE.CR PO SCH (10:28)
[2020-01-18] MEDS: NICOTINE 21 MG/24 HR PATCH.TD24 TD SCH (10:28)
[2020-01-18] MEDS: BUSPIRONE HCL 10 MG TABLET PO SCH ×2 (10:28→21:24)
[2020-01-18] MEDS: GABAPENTIN 300 MG CAPSULE PO SCH (11:48)
[2020-01-18] MEDS: TAMSULOSIN HCL 0.4 MG CAP.SR.24H PO SCH (17:28)
--- NOTE | 2020-01-18 21:12 | PDOC PROGRESS REPORT ---
Subjective Progress Note for:: 01/18/20 Subjective:: HU GARCIA is a 59 year old male with history of schizophrenia, gastroparesis reflux disease, COPD, history of hyponatremia was brought to the emergency room after he was found leaning up to both ears after walking for [address] he was an escape from [facility] and was placed on missing person file. Work-up in the ER indicates pneumonia, hyponatremia with a serum sodium of 116.8. ER physician discussed the case with Dr. Webb and also with ICU electric track switch maintainer Dr. Webb was to give 50 mL of 3% normal saline. But ICU attending thinks patient does need to be in ICU does not need to be in 3% normal saline. Dr. flores called me for admission. After discussion with Dr. Webb, I requested Dr. Flores to give 3% normal saline 50 cc over 1 and half hour. I went to see the patient and he told me patient has a seizure-like activity and is able to give a Keppra. Also found to have a short brief of V. tach in the emergency room. The nurses have a hard time keeping the IV line in and he pulled a couple of IV lines. He was given a Catemine and IV line was accessed and started on 3% normal saline. I am going to admit the patient to IMCU but I requested Dr. flores to keep the patient in the ER tonight until mental status and hyponatremia improves. He agreed. pt is unable to give any history. 01/07/2020-patient is comfortable in the bed not in distress. Waiting for placement. 01/08/2020-patient is comfortable in the bed communicating well. Not in distress. Waiting for placement. 01/09/2020-patient is comfortable in the bed not in distress. Watching TV. Denies any problems. Waiting for placement. 01/10/2020-patient is comfortably in the bed communicating well not in distress. Waiting for placement. 01/11/2020-patient is agitated this morning. Screaming and yelling at this time. To give Haldol 5 mg im 1dose. 01/12/2020-patient is comfortably in the bed not in distress. Waiting for placement." 01/13/2020 Patient very calm and speaking in clear complete sentences this morning. He is not agitated today. Creatinine is gradually rising. Hold lisinopril. Waiting for placement, case management working on this. 01/14/2020 Patient is more agitated today and is anxious. Herrera catheter placed yesterday for urinary retention of 1.3 L. Urine is a bit bloody today but does not have susanne blood in it. I explained to the patient that we will need to keep the Herrera in place for a few days to allow his bladder to rest. There is a good chance that he will continue retaining urine if the cause is actually his antipsychotics. We will get a UA with reflex culture today. He has no new complaints. 01/15/2020 Patient is very calm today and states he is comfortable. The urine in his Herrera collection bag is much clearer today with minimal blood in it at all. I think we can try a void trial tomorrow and see if he continues to retain. If he does continue to retain, he will need to keep his Herrera catheter in place and have a prompt urology follow-up outpatient. Creatinine is improving today. Patient is appropriate to go to facility when we have one available. 01/16/2020 Urine is completely clear today and we can attempt a void trial. If he continues retaining urine he will need to leave the hospital with a Herrera in place and a follow-up with urology. We still do not have a place for him to be dispositioned to at discharge. Otherwise, he has no new complaints and seems rather calm today. Creatinine is lower today. 01/17/2020 Patient was retaining urine again overnight per nursing notes. I discussed with the nurse that we need to do a postvoid residual to see if he is still retain ing. I highly suspect he will continue retaining as his psychiatric medications are probably causing this phenomena. Patient is much more agitated today and is yelling frequently. This is probably due to his urinary retention. Psychiatry was contacted today and they will be changing patient's medications and it would probably be best if they came back to evaluate him in person again. 01/18/20. Care assumed today. Denies any new symptom. No note of agitation episodes today. Na 129.6. Psych saw him yesterday who recommended repeat CT head to evaluate for neurodegenerative disease. Psych recs for medication followed. Currently still has a herrera. Awaiting placement. Reason For Visit: HYPONATREMIA Physical Exam Vital Signs: Temp Pulse Resp BP Pulse Ox 97.5 F 79 18 129/80 H 100 01/18/20 15:38 01/18/20 15:38 01/18/20 15:38 01/18/20 15:38 01/18/20 15:38 Intake & Output 01/17/20 01/18/20 01/19/20 06:59 06:59 06:59 Intake Total 1768 1240 581 Output Total 930 2150 1050 Balance 838 -910 -469 Weight 80.1 kg 79.3 kg General appearance: PRESENT: no acute distress, cooperative Head exam: PRESENT: atraumatic, normocephalic Eye exam: PRESENT: EOMI, PERRLA Ear exam: PRESENT: normal external ear exam Mouth exam: PRESENT: moist Neck exam: PRESENT: full ROM Respiratory exam: PRESENT: clear to auscultation alan, symmetrical, unlabored. ABSENT: rales, wheezes Cardiovascular exam: PRESENT: RRR, +S1, +S2 Pulses: PRESENT: +2 pedal pulses bilateral GI/Abdominal exam: PRESENT: normal bowel sounds, soft. ABSENT: rebound, tenderness Gentrourinary exam: PRESENT: indwelling catheter Extremities exam: PRESENT: full ROM Musculoskeletal exam: PRESENT: full ROM Neurological exam: PRESENT: alert, awake Psychiatric exam: PRESENT: unusual affect Focused psych exam: PRESENT: pressured speech Skin exam: PRESENT: normal color Results Laboratory Results: 01/18/20 05:42 01/17/20 05:48 01/18/20 05:42 WBC 8.5 RBC 3.76 L Hgb 11.7 L Hct 32.7 L MCV 87 MCH 31.2 MCHC 35.9 RDW 15.3 H Plt Count 268 Seg Neutrophils % 63.8 12/25/19 12/25/19 12/25/19 13:39 13:39 13:39 Creatine Kinase 176 H Cancelled Troponin I 0.068 NT-Pro-B Natriuret Pep 12/25/19 12/26/19 21:27 05:40 Creatine Kinase Troponin I 0.127 0.096 NT-Pro-B Natriuret Pep 818 H Impressions: Chest X-Ray 12/29/19 07:00 IMPRESSION: NO ACUTE RADIOGRAPHIC FINDING IN THE CHEST. 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 and medication effect - liberalize salt - continue water restriction (3) Hypertension Is this a current diagnosis for this admission?: No Plan: - stable - continue clonidine, cardizem, hydralazine and lisinopril (4) Acute urinary retention Is this a current diagnosis for this admission?: Yes Plan: - has herrera due to multiple voiding trial failure - will likely be discharged with Herrera - would need urology follow up (5) Schizophrenia Qualifiers: Schizophrenia type: unspecified Qualified Code(s): F20.9 - Schizophrenia, unspecified Is this a current diagnosis for this admission?: Yes Plan: Calm and cooperative today. Mental health services were consulted with following medication recommendations: on Depakote 500 MG 2x times a day valium 5 mg Po q6 PRN Buspar 5MG twice a day Add Risperdal 0.25MG twice a day - psych advised repeat CT head to assess neurodegenerative disease - Time Time Spent with patient: 15-24 minutes Anticipated Discharge Disposition: Residential Facility Anticipated Discharge Timeframe: to be determined
[2020-01-18] MEDS: DOXAZOSIN MESYLATE 2 MG TABLET PO SCH (21:22)
[2020-01-19] MEDS: DIAZEPAM 5 MG TABLET PO PRN ×2 (02:25→20:23)
[2020-01-19] MEDS: HYDRALAZINE HCL 25 MG TABLET PO SCH ×3 (05:28→21:43)
[2020-01-19] MEDS: HEPARIN SOD (PORCINE) 5,000 UNIT/ML 1 ML VIAL SUBCUT SCH ×3 (05:28→21:48)
[2020-01-19] MEDS: PANTOPRAZOLE SODIUM 40 MG TABLET.DR PO SCH ×2 (05:33→17:28)
[2020-01-19 08:43] LABS: ABSOLUTE BASOPHILS # (AUTO) 0.1 10^3/uL (0.0-0.2); ABSOLUTE EOSINOPHILS # (AUTO) 0.3 10^3/uL (0.0-0.6); ABSOLUTE LYMPHOCYTES (AUTO) 2.4 10^3/uL (0.5-4.7); ABSOLUTE MONOCYTES (AUTO) 0.8 10^3/uL (0.1-1.4); ABSOLUTE NEUT (AUTO) 7.1 10^3/uL (1.7-8.2); BASOPHILS % (AUTO) 0.9 % (0-2); EOSINOPHILS % (AUTO) 2.6 % (0-6); HEMATOCRIT 34.3 % (37.9-51.0); HEMOGLOBIN 12.1 g/dL (13.5-17.0); LYMPHOCYTES % (AUTO) 22.7 % (13-45); MEAN CORPUSCULAR HEMOGLOBIN 31.1 pg (27.0-33.4); MEAN CORPUSCULAR HGB CONC 35.2 g/dL (32.0-36.0); MEAN CORPUSCULAR VOLUME 88 fl (80-97); MONOCYTES % (AUTO) 7.2 % (3-13); PLATELET COUNT 286 10^3/uL (150-450); RED BLOOD COUNT 3.88 10^6/uL (4.35-5.55); RED CELL DISTRIBUTION WIDTH 14.9 % (11.5-14.0); SEGMENTED NEUTROPHILS % (AUTO) 66.6 % (42-78); TOTAL CELLS COUNTED % (AUTO) 100 %; WHITE BLOOD COUNT 10.7 10^3/uL (4.0-10.5)
[2020-01-19 09:02] LABS: ALBUMIN 3.3 g/dL (3.5-5.0); ALKALINE PHOSPHATASE 52 U/L (38-126); ANION GAP 10 (5-19); ASPARTATE AMINO TRANSFERASE 20 U/L (17-59); BILIRUBIN,DIRECT 0.3 mg/dL (0.0-0.4); BILIRUBIN,TOTAL 0.4 mg/dL (0.2-1.3); BLOOD UREA NITROGEN 27 mg/dL (7-20); CARBON DIOXIDE 21 mmol/L (22-30); CHLORIDE 99 mmol/L (98-107); GLUCOSE 100 mg/dL (75-110); POTASSIUM 4.6 mmol/L (3.6-5.0); TOTAL PROTEIN 5.9 g/dL (6.3-8.2)
[2020-01-19] MEDS: DILTIAZEM HCL 180 MG CAPSULE.CR PO SCH (09:16)
[2020-01-19] MEDS: RISPERIDONE 0.25 MG TABLET PO SCH ×2 (09:16→21:42)
[2020-01-19] MEDS: BUSPIRONE HCL 10 MG TABLET PO SCH ×2 (09:16→21:41)
[2020-01-19] MEDS: NICOTINE 21 MG/24 HR PATCH.TD24 TD SCH (09:17)
[2020-01-19] MEDS: FLUTICASONE/VILANTEROL 200-25 MCG/DOSE IH SCH (09:17)
[2020-01-19] MEDS: DIVALPROEX SODIUM 500 MG TAB.SR.24H PO SCH ×2 (09:17→21:42)
[2020-01-19] MEDS: FINASTERIDE 5 MG TABLET PO SCH (09:17)
[2020-01-19] MEDS: GABAPENTIN 300 MG CAPSULE PO SCH (12:39)
--- NOTE | 2020-01-19 15:02 | RADIOLOGY REPORT (SQ) ---
EXAM DESCRIPTION: CT HEAD WITHOUT IMAGES COMPLETED DATE/TIME: 01/19/2020 2:31 pm REASON FOR STUDY: possible cva COMPARISON: 03/01/2014. TECHNIQUE: Axial images acquired through the brain without intravenous contrast. Images reviewed wi th bone, brain and subdural windows. Additional sagittal and coronal reconstructions were generated. Images stored on PACS. All CT scanners at this facility use dose modulation, iterative reconstruction, and/or weight based d osing when appropriate to reduce radiation dose to as low as reasonably achievable (ALARA). [facility]: Dose Right [facility]: CareDose [facility]: Dose Right [facility]: Teradose 4D [facility]: Smart [place] RADIATION DOSE: CT Rad equipment meets quality standard of care and radiation dose reduction techniq ues were employed. CTDIvol: 53.2 mGy. DLP: 1044 mGy-cm. mGy. LIMITATIONS: None. FINDINGS: VENTRICLES: Prominent. CEREBRUM: No masses. No hemorrhage. No midline shift. Areas of low density in the white matter mos t likely due to chronic micro-vascular ischemic change. No evidence for acute infarction. CEREBELLUM: No masses. No hemorrhage. No alteration of density. No evidence for acute infarction. EXTRAAXIAL SPACES: Mild age-related involutional change. No fluid collections. No masses. ORBITS AND GLOBE: No intra- or extraconal masses. Normal contour of globe without masses. CALVARIUM: No fracture. PARANASAL SINUSES: No fluid or mucosal thickening. SOFT TISSUES: No mass or hematoma. OTHER: No other significant finding. IMPRESSION: MILD CHRONIC CHANGES OF ATROPHY AND MICROVASCULAR ISCHEMIA. NO ACUTE PROCESS. EVIDENCE OF ACUTE STROKE: NO. TECHNICAL DOCUMENTATION: JOB ID: [id number] Quality ID # [id number]: Final reports with documentation of one or more dose reduction techniques (e.g., Au tomated exposure control, adjustment of the mA and/or kV according to patient size, use of iterative reconstruction technique) 2010 [employer]- All Rights Reserved Reading location - IP/workstation name: [email or web address]
--- NOTE | 2020-01-19 16:35 | PDOC PROGRESS REPORT ---
Subjective Progress Note for:: 01/19/20 Subjective:: HU GARCIA is a 59 year old male with history of schizophrenia, gastroparesis reflux disease, COPD, history of hyponatremia was brought to the emergency room after he was found leaning up to both ears after walking for [address] he was an escape from [facility] and was placed on missing person file. Work-up in the ER indicates pneumonia, hyponatremia with a serum sodium of 116.8. ER physician discussed the case with Dr. Webb and also with ICU assistant associate professor Dr. Webb was to give 50 mL of 3% normal saline. But ICU attending thinks patient does need to be in ICU does not need to be in 3% normal saline. Dr. flores called me for admission. After discussion with Dr. Webb, I requested Dr. Flores to give 3% normal saline 50 cc over 1 and half hour. I went to see the patient and he told me patient has a seizure-like activity and is able to give a Keppra. Also found to have a short brief of V. tach in the emergency room. The nurses have a hard time keeping the IV line in and he pulled a couple of IV lines. He was given a Catemine and IV line was accessed and started on 3% normal saline. I am going to admit the patient to IMCU but I requested Dr. flores to keep the patient in the ER tonight until mental status and hyponatremia improves. He agreed. pt is unable to give any history. 01/07/2020-patient is comfortable in the bed not in distress. Waiting for placement. 01/08/2020-patient is comfortable in the bed communicating well. Not in distress. Waiting for placement. 01/09/2020-patient is comfortable in the bed not in distress. Watching TV. Denies any problems. Waiting for placement. 01/10/2020-patient is comfortably in the bed communicating well not in distress. Waiting for placement. 01/11/2020-patient is agitated this morning. Screaming and yelling at this time. To give Haldol 5 mg im 1dose. 01/12/2020-patient is comfortably in the bed not in distress. Waiting for placement." 01/13/2020 Patient very calm and speaking in clear complete sentences this morning. He is not agitated today. Creatinine is gradually rising. Hold lisinopril. Waiting for placement, case management working on this. 01/14/2020 Patient is more agitated today and is anxious. Herrera catheter placed yesterday for urinary retention of 1.3 L. Urine is a bit bloody today but does not have susanne blood in it. I explained to the patient that we will need to keep the Herrera in place for a few days to allow his bladder to rest. There is a good chance that he will continue retaining urine if the cause is actually his antipsychotics. We will get a UA with reflex culture today. He has no new complaints. 01/15/2020 Patient is very calm today and states he is comfortable. The urine in his Herrera collection bag is much clearer today with minimal blood in it at all. I think we can try a void trial tomorrow and see if he continues to retain. If he does continue to retain, he will need to keep his Herrera catheter in place and have a prompt urology follow-up outpatient. Creatinine is improving today. Patient is appropriate to go to facility when we have one available. 01/16/2020 Urine is completely clear today and we can attempt a void trial. If he continues retaining urine he will need to leave the hospital with a Herrera in place and a follow-up with urology. We still do not have a place for him to be dispositioned to at discharge. Otherwise, he has no new complaints and seems rather calm today. Creatinine is lower today. 01/17/2020 Patient was retaining urine again overnight per nursing notes. I discussed with the nurse that we need to do a postvoid residual to see if he is still retain ing. I highly suspect he will continue retaining as his psychiatric medications are probably causing this phenomena. Patient is much more agitated today and is yelling frequently. This is probably due to his urinary retention. Psychiatry was contacted today and they will be changing patient's medications and it would probably be best if they came back to evaluate him in person again. 01/18/20. Care assumed today. Denies any new symptom. No note of agitation episodes today. Na 129.6. Psych saw him yesterday who recommended repeat CT head to evaluate for neurodegenerative disease. Psych recs for medication followed. Currently still has a herrera. Awaiting placement. 01/19/20. He was seen and examined at bedside. Denies any new symptom. Per nurse he has less bouts of agitation. Na 129.7. repeat CT head no significant change. awaiting placement. Reason For Visit: HYPONATREMIA Physical Exam Vital Signs: Temp Pulse Resp BP Pulse Ox 97.7 F 87 18 118/70 97 01/19/20 12:25 01/19/20 12:25 01/19/20 12:25 01/19/20 12:25 01/19/20 12:25 Intake & Output 01/18/20 01/19/20 01/20/20 06:59 06:59 06:59 Intake Total 1240 1281 560 Output Total 2150 2150 Balance -910 -869 560 Weight 79.3 kg 80.6 kg General appearance: PRESENT: no acute distress, cooperative Head exam: PRESENT: atraumatic, normocephalic Eye exam: PRESENT: EOMI, PERRLA Mouth exam: PRESENT: moist Neck exam: PRESENT: full ROM Respiratory exam: PRESENT: clear to auscultation alan, symmetrical, unlabored Cardiovascular exam: PRESENT: RRR, +S1, +S2 Pulses: PRESENT: +2 pedal pulses bilateral Vascular exam: PRESENT: normal capillary refill GI/Abdominal exam: PRESENT: normal bowel sounds, soft. ABSENT: rebound, tenderness Extremities exam: ABSENT: +2 edema Musculoskeletal exam: PRESENT: full ROM Neurological exam: PRESENT: alert, awake Psychiatric exam: PRESENT: unusual affect Skin exam: PRESENT: normal color Results Laboratory Results: 01/19/20 08:23 01/19/20 08:23 01/19/20 01/19/20 08:23 08:23 WBC 10.7 H RBC 3.88 L Hgb 12.1 L Hct 34.3 L MCV 88 MCH 31.1 MCHC 35.2 RDW 14.9 H Plt Count 286 Seg Neutrophils % 66.6 Sodium 129.7 L Potassium 4.6 Chloride 99 Carbon Dioxide 21 L Anion Gap 10 BUN 27 H Creatinine 1.30 H Est GFR ( Amer) > 60 Glucose 100 Calcium 9.0 Total Bilirubin 0.4 AST 20 Alkaline Phosphatase 52 Total Protein 5.9 L Albumin 3.3 L 12/25/19 12/25/19 12/25/19 13:39 13:39 13:39 Creatine Kinase 176 H Cancelled Troponin I 0.068 NT-Pro-B Natriuret Pep 12/25/19 12/26/19 21:27 05:40 Creatine Kinase Troponin I 0.127 0.096 NT-Pro-B Natriuret Pep 818 H Impressions: Chest X-Ray 12/29/19 07:00 IMPRESSION: NO ACUTE RADIOGRAPHIC FINDING IN THE CHEST. Head CT 01/19/20 00:00 IMPRESSION: MILD CHRONIC CHANGES OF ATROPHY AND MICROVASCULAR ISCHEMIA. NO ACUTE PROCESS. EVIDENCE OF ACUTE STROKE: NO. 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 and medication effect - liberalize salt - continue water restriction (3) Hypertension Is this a current diagnosis for this admission?: No Plan: - stable - continue clonidine, cardizem, hydralazine and lisinopril (4) Acute urinary retention Is this a current diagnosis for this admission?: Yes Plan: - has herrera due to multiple voiding trial failure - will likely be discharged with Herrera - would need urology follow up (5) Schizophrenia Qualifiers: Schizophrenia type: unspecified Qualified Code(s): F20.9 - Schizophrenia, unspecified Is this a current diagnosis for this admission?: Yes Plan: Calm and cooperative today. Mental health services were consulted with following medication recommendations: on Depakote 500 MG 2x times a day valium 5 mg Po q6 PRN Buspar 5MG twice a day Add Risperdal 0.25MG twice a day - repeat CT head unremarkable - Time Time Spent with patient: 25-34 minutes Medications reviewed and adjusted accordingly: Yes Anticipated Discharge Disposition: Psych Hospital/Unit Anticipated Discharge Timeframe: to be determined
[2020-01-19] MEDS: TAMSULOSIN HCL 0.4 MG CAP.SR.24H PO SCH (17:28)
[2020-01-19] MEDS: DOXAZOSIN MESYLATE 2 MG TABLET PO SCH (21:42)
[2020-01-20] MEDS: DIAZEPAM 5 MG TABLET PO PRN ×3 (04:03→18:40)
[2020-01-20 05:25] LABS: ABSOLUTE BASOPHILS # (AUTO) 0.1 10^3/uL (0.0-0.2); ABSOLUTE EOSINOPHILS # (AUTO) 0.3 10^3/uL (0.0-0.6); ABSOLUTE MONOCYTES (AUTO) 0.8 10^3/uL (0.1-1.4); ABSOLUTE NEUT (AUTO) 7.6 10^3/uL (1.7-8.2); BASOPHILS % (AUTO) 1.1 % (0-2); EOSINOPHILS % (AUTO) 2.4 % (0-6); HEMATOCRIT 35.7 % (37.9-51.0); HEMOGLOBIN 12.7 g/dL (13.5-17.0); LYMPHOCYTES % (AUTO) 25.1 % (13-45); MEAN CORPUSCULAR HEMOGLOBIN 31.1 pg (27.0-33.4); MEAN CORPUSCULAR HGB CONC 35.4 g/dL (32.0-36.0); MEAN CORPUSCULAR VOLUME 88 fl (80-97); MONOCYTES % (AUTO) 6.5 % (3-13); PLATELET COUNT 302 10^3/uL (150-450); RED BLOOD COUNT 4.07 10^6/uL (4.35-5.55); RED CELL DISTRIBUTION WIDTH 15.4 % (11.5-14.0); SEGMENTED NEUTROPHILS % (AUTO) 64.9 % (42-78); TOTAL CELLS COUNTED % (AUTO) 100 %; WHITE BLOOD COUNT 11.8 10^3/uL (4.0-10.5)
[2020-01-20] MEDS: HEPARIN SOD (PORCINE) 5,000 UNIT/ML 1 ML VIAL SUBCUT SCH ×3 (05:40→22:11)
[2020-01-20] MEDS: HYDRALAZINE HCL 25 MG TABLET PO SCH ×3 (05:40→22:04)
[2020-01-20] MEDS: PANTOPRAZOLE SODIUM 40 MG TABLET.DR PO SCH ×2 (06:44→17:35)
[2020-01-20] MEDS: NICOTINE 21 MG/24 HR PATCH.TD24 TD SCH (11:05)
[2020-01-20] MEDS: FLUTICASONE/VILANTEROL 200-25 MCG/DOSE IH SCH (11:05)
[2020-01-20] MEDS: RISPERIDONE 0.25 MG TABLET PO SCH ×2 (11:06→22:06)
[2020-01-20] MEDS: BUSPIRONE HCL 10 MG TABLET PO SCH ×2 (11:06→22:05)
[2020-01-20] MEDS: DILTIAZEM HCL 180 MG CAPSULE.CR PO SCH (11:06)
[2020-01-20] MEDS: FINASTERIDE 5 MG TABLET PO SCH (11:07)
[2020-01-20] MEDS: SODIUM CHLORIDE 1 GM TABLET PO SCH (11:07)
[2020-01-20] MEDS: DIVALPROEX SODIUM 500 MG TAB.SR.24H PO SCH ×2 (11:07→22:06)
[2020-01-20] MEDS: GABAPENTIN 300 MG CAPSULE PO SCH (12:10)
--- NOTE | 2020-01-20 16:34 | PDOC PROGRESS REPORT ---
Subjective Progress Note for:: 01/20/20 Subjective:: NAEO Reason For Visit: HYPONATREMIA Physical Exam Vital Signs: Temp Pulse Resp BP Pulse Ox 97.5 F 91 11 L 117/86 H 100 01/20/20 10:59 01/20/20 10:59 01/20/20 10:59 01/20/20 10:59 01/20/20 10:59 Intake & Output 01/19/20 01/20/20 01/21/20 06:59 06:59 06:59 Intake Total 1281 4082 446 Output Total 2150 2575 Balance -869 1507 446 Weight 80.6 kg 79.7 kg General appearance: PRESENT: no acute distress Eye exam: ABSENT: scleral icterus Mouth exam: PRESENT: moist Neck exam: ABSENT: JVD Respiratory exam: PRESENT: clear to auscultation alan Cardiovascular exam: PRESENT: RRR GI/Abdominal exam: PRESENT: normal bowel sounds, soft Musculoskeletal exam: PRESENT: normal inspection Neurological exam: PRESENT: alert, awake Psychiatric exam: PRESENT: flat affect Focused psych exam: PRESENT: delusional Skin exam: ABSENT: jaundice, rash Results Laboratory Results: 01/20/20 04:32 01/19/20 08:23 01/20/20 04:32 WBC 11.8 H RBC 4.07 L Hgb 12.7 L Hct 35.7 L MCV 88 MCH 31.1 MCHC 35.4 RDW 15.4 H Plt Count 302 Seg Neutrophils % 64.9 12/25/19 12/25/19 12/25/19 13:39 13:39 13:39 Creatine Kinase 176 H Cancelled Troponin I 0.068 NT-Pro-B Natriuret Pep 12/25/19 12/26/19 21:27 05:40 Creatine Kinase Troponin I 0.127 0.096 NT-Pro-B Natriuret Pep 818 H Impressions: Chest X-Ray 12/29/19 07:00 IMPRESSION: NO ACUTE RADIOGRAPHIC FINDING IN THE CHEST. Head CT 01/19/20 00:00 IMPRESSION: MILD CHRONIC CHANGES OF ATROPHY AND MICROVASCULAR ISCHEMIA. NO ACUTE PROCESS. EVIDENCE OF ACUTE STROKE: NO. Assessment and Plan - Diagnosis (1) Acute metabolic encephalopathy Is this a current diagnosis for this admission?: Yes (2) Acute urinary retention Is this a current diagnosis for this admission?: Yes (3) Dehydration Is this a current diagnosis for this admission?: Yes (4) Hyponatremia syndrome Is this a current diagnosis for this admission?: Yes (5) Schizophrenia Qualifiers: Schizophrenia type: unspecified Qualified Code(s): F20.9 - Schizophrenia, unspecified Is this a current diagnosis for this admission?: Yes (6) Primary polydipsia Is this a current diagnosis for this admission?: Yes (7) Acute kidney injury Is this a current diagnosis for this admission?: Yes - Plan Summary Summary: Mr. 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 He was found to be lethargic. Initial labs were concerning for severe hyponatremia, sodium 116. There was concern for possible "seizure like activity" in the ED. Nephrology was consulted and recommended giving 3% hypertonic saline due to acute mental status changes associated with severe hyponatremia. Psychiatry was consulted and made medication recomm endations. Hospital course has been prolonged due to the fact that he is awaiting psychiatric placement. Acute metabolic encephalopathy: multifactorial due to acute on chronic hyponatremia superimposed on schizophrenia and possibly advancing vascular dementia. He now appears to be at baseline mental status. - awaiting psych/nursing facility placement with locked unit Hyponatremia due to SIADH/Polydipsia: improved with 1 L/day fluid restriction - likely 2/2 combination of psychogenic polydipsia and medication effect (antipsychotics and Depakote are both known to cause SIADH) - liberalize salt intake - continue water restriction Essential Hypertension: stable - continue cardizem, hydralazine and doxazosin BLANCA: was likely due to urinary retention. Appears euvolemic on exam today. - repeat BMP in AM - hold ACEI/ARB therapy for now Acute urinary retention - herrera replaced due to failed voiding trial x2 this admission - will likely be discharged with Herrera - outpatient urology follow up Schizophrenia: psych re-consulted on 01/19 for further medication recommendations. Would prefer to decrease BZD usage, if possible, but we are limited in medications that we can use due to presence of hyponatremia. DVT ppx: heparin - Time Time Spent with patient: 35 or more minutes Anticipated Discharge Disposition: Psych Hospital/Unit Anticipated Discharge Timeframe: within 24 hours
[2020-01-20] MEDS: TAMSULOSIN HCL 0.4 MG CAP.SR.24H PO SCH (17:35)
--- NOTE | 2020-01-20 21:37 | PDOC CONSULTATION ---
Consultation-Blank Consultation: Psychiatric Consultation-Review of Chart for Medication Recommendations at Request of Attending Physician. Review of Patient chart indicates patient continues to engage in behavioral dysfunction resulting in increased need for staff monitoring. Physician note dated 01.20.2020 indicated Patient is considered at baseline functioning from a mental status and medical standpoint and is awaiting placement at an inpatient facility or higher level of care with a locked unit. She indicated a diagnosis of vascular dementia and schizophrenia, both of which require close monitoring at this time. Discharge planning note dated 01.20.2020 indicates the Patient is not an appropriate for [facility] secondary to current diagnosis and insurance. Other alternatives are currently be considered and sought. Review of Patient's current medications indicate he is taking Gabapentin 6oo mg daily, Depakote 500 mg twice per day, Risperdone 0.25 mg twice per day, Buspar 5 mg twice per day, and Valium 2 mg every 6 hours as needed. Attending Physician requested a review of these psychiatric medications as she feels that patient's behavior is again escalating. After review of Patient's most current head CT dated 01.19.2020 and results demonstrating prominent ventricles, mild chronic changes of atrophy and microvascular ischemia disease, it is likely the current medication regiment is contributing to the patient's behavioral dyscontrol. Head CT results and language suggest neurodegenerative disease pattern consist ent with a dementia like process, particularly given the level of atrophy noted. The amount of atrophy revealed coupled with decreased blood flow and decreased oxygenation mainly to the frontal lobes, makes the patient vulnerable to disinhibition (poor impulse control) and sensitive to medications that antagonize dopamine D2 receptors and serotonin 5-HT2 receptors. Specifically with this patient, there is significant concern for additive and antagonistic effects between the valium and risperdone characterized as profound central nervous system and respiratory depression and / or psychomotor impairment. As such, the following medication recommendations are made and encouraged by the [facility] psychiatric consulting provider: 1. Please complete a depakote level 2. Discontinue Valium 3. Discontinue Risperdone Working Diagnoses: 1. Vascular Dementia with behavioral dyscontrol Thank you for the opportunity to participate in this patient's care. I can be reached at [phone] should there be any questions regarding this consult. Rigo Lujan Psy.D. Clinical Neuropsychologist Clinical Psychologist JESUS Licensed Psychologist #[id number]
[2020-01-20] MEDS: DOXAZOSIN MESYLATE 2 MG TABLET PO SCH (22:05)
[2020-01-20] MEDS: HALOPERIDOL 5 MG TABLET PO PRN (22:05)
[2020-01-21] MEDS: DIAZEPAM 5 MG TABLET PO PRN ×2 (02:40→21:05)
[2020-01-21] MEDS: PANTOPRAZOLE SODIUM 40 MG TABLET.DR PO SCH ×2 (05:56→17:15)
[2020-01-21] MEDS: HEPARIN SOD (PORCINE) 5,000 UNIT/ML 1 ML VIAL SUBCUT SCH ×3 (05:56→21:08)
[2020-01-21] MEDS: HYDRALAZINE HCL 25 MG TABLET PO SCH ×2 (05:56→13:02)
[2020-01-21] MEDS: SODIUM CHLORIDE 1 GM TABLET PO SCH (09:39)
[2020-01-21] MEDS: FINASTERIDE 5 MG TABLET PO SCH (09:39)
[2020-01-21] MEDS: NICOTINE 21 MG/24 HR PATCH.TD24 TD SCH (09:40)
[2020-01-21] MEDS: DILTIAZEM HCL 180 MG CAPSULE.CR PO SCH (09:40)
[2020-01-21] MEDS: FLUTICASONE/VILANTEROL 200-25 MCG/DOSE IH SCH (09:47)
[2020-01-21] MEDS: BUSPIRONE HCL 10 MG TABLET PO SCH ×2 (09:47→21:05)
[2020-01-21 09:55] LABS: HEMATOCRIT 38.8 % (37.9-51.0); HEMOGLOBIN 13.4 g/dL (13.5-17.0); MEAN CORPUSCULAR HEMOGLOBIN 30.9 pg (27.0-33.4); MEAN CORPUSCULAR HGB CONC 34.6 g/dL (32.0-36.0); MEAN CORPUSCULAR VOLUME 89 fl (80-97); PLATELET COUNT 292 10^3/uL (150-450); RED BLOOD COUNT 4.35 10^6/uL (4.35-5.55); RED CELL DISTRIBUTION WIDTH 15.4 % (11.5-14.0); WHITE BLOOD COUNT 10.3 10^3/uL (4.0-10.5)
[2020-01-21 10:16] LABS: ANION GAP 14 (5-19); BLOOD UREA NITROGEN 39 mg/dL (7-20); CALCIUM 9.7 mg/dL (8.4-10.2); CARBON DIOXIDE 21 mmol/L (22-30); CHLORIDE 103 mmol/L (98-107); GLUCOSE 214 mg/dL (75-110); POTASSIUM 4.2 mmol/L (3.6-5.0)
[2020-01-21] MEDS ORDERED: NORMAL SALINE 1000 ML 1,000 ML IV PRN (10:55)
[2020-01-21] MEDS: RISPERIDONE 0.25 MG TABLET PO SCH ×3 (11:12→21:05)
[2020-01-21] MEDS: DIVALPROEX SODIUM 500 MG TAB.SR.24H PO SCH ×3 (11:12→21:05)
[2020-01-21] MEDS: GABAPENTIN 300 MG CAPSULE PO SCH (12:57)
[2020-01-21] MEDS: ACETAMINOPHEN 325 MG TABLET PO PRN (13:00)
[2020-01-21] MEDS: TAMSULOSIN HCL 0.4 MG CAP.SR.24H PO SCH (17:15)
--- NOTE | 2020-01-21 17:52 | PDOC PROGRESS REPORT ---
Subjective Progress Note for:: 01/21/20 Subjective:: He is feeling okay. Reason For Visit: HYPONATREMIA Physical Exam Vital Signs: Temp Pulse Resp BP Pulse Ox 97.5 F 91 10 L 112/88 H 100 01/21/20 16:00 01/21/20 16:00 01/21/20 16:00 01/21/20 16:00 01/21/20 12:00 Intake & Output 01/20/20 01/21/20 01/22/20 06:59 06:59 06:59 Intake Total 4082 558 Output Total 2575 1300 Balance 1507 -742 Weight 79.7 kg 79.3 kg General appearance: PRESENT: no acute distress Mouth exam: PRESENT: dry mucosa Neck exam: ABSENT: JVD Respiratory exam: PRESENT: clear to auscultation alan, unlabored Cardiovascular exam: PRESENT: RRR GI/Abdominal exam: PRESENT: normal bowel sounds, soft Extremities exam: ABSENT: pedal edema Neurological exam: PRESENT: alert, altered, awake Psychiatric exam: PRESENT: flat affect Skin exam: PRESENT: dry. ABSENT: rash Results Laboratory Results: 01/21/20 09:16 01/21/20 09:16 01/21/20 01/21/20 09:16 09:16 WBC 10.3 RBC 4.35 Hgb 13.4 L Hct 38.8 MCV 89 MCH 30.9 MCHC 34.6 RDW 15.4 H Plt Count 292 Sodium 137.9 Potassium 4.2 Chloride 103 Carbon Dioxide 21 L Anion Gap 14 BUN 39 H Creatinine 1.46 H Est GFR ( Amer) > 60 Glucose 214 H Calcium 9.7 12/25/19 12/25/19 12/25/19 13:39 13:39 13:39 Creatine Kinase 176 H Cancelled Troponin I 0.068 NT-Pro-B Natriuret Pep 12/25/19 12/26/19 21:27 05:40 Creatine Kinase Troponin I 0.127 0.096 NT-Pro-B Natriuret Pep 818 H Impressions: Chest X-Ray 12/29/19 07:00 IMPRESSION: NO ACUTE RADIOGRAPHIC FINDING IN THE CHEST. Head CT 01/19/20 00:00 IMPRESSION: MILD CHRONIC CHANGES OF ATROPHY AND MICROVASCULAR ISCHEMIA. NO ACUTE PROCESS. EVIDENCE OF ACUTE STROKE: NO. Assessment and Plan - Diagnosis (1) Acute metabolic encephalopathy Is this a current diagnosis for this admission?: Yes (2) Acute urinary retention Is this a current diagnosis for this admission?: Yes (3) Dehydration Is this a current diagnosis for this admission?: Yes (4) Hyponatremia syndrome Is this a current diagnosis for this admission?: Yes (5) Schizophrenia Qualifiers: Schizophrenia type: unspecified Qualified Code(s): F20.9 - Schizophrenia, unspecified Is this a current diagnosis for this admission?: Yes (6) Primary polydipsia Is this a current diagnosis for this admission?: Yes (7) Acute kidney injury Is this a current diagnosis for this admission?: Yes - Plan Summary Summary: Mr. 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 He was found to be lethargic. Initial labs were concerning for severe hyponatremia, sodium 116. There was concern for possible "seizure like activity" in the ED. Nephrology was consulted and recommended giving 3% hypertonic saline due to acute mental status changes associated with severe hyponatremia. Psychiatry was consulted and made medication recommendations. Hospital course has been prolonged due to the fact that he is awaiting octavio/psych placement. Acute metabolic encephalopathy: multifactorial due to acute on chronic hyponatremia superimposed on schizophrenia and possibly advancing vascular dementia. He now appears to be at baseline mental status, which is impulsive, with waxing and waning orientation. He is awaiting octavio/psych facility placement. Hyponatremia due to SIADH: resolved with 1 L/day fluid restriction + NaCl 1 g tablet daily. Likely due to medication effect (antipsychotics and Depakote are both known to cause SIADH). - liberalize salt intake BLANCA: was initially likely due to urinary retention, but now that he has a Herrera in place, more likely due to dehydration as a result of strict fluid restriction. - unable to give IVF today as patient is refusing PIV placement on multiple attempts and becoming agitated - liberalize oral fluid intake to improve hydration - repeat BMP in AM - hold ACEI/ARB therapy for now - avoid nephrotoxins - renally dose medications Essential Hypertension: BP is low to normal today, likely due to dehydration - DC hydralazine and doxazosin - continue cardizem Acute urinary retention: herrera replaced due to failed voiding trial x2 this admission - start Flomax/Proscar - will likely be discharged with Herrera - outpatient urology follow up Schizophrenia: psych re-consulted DVT ppx: heparin - Time Time Spent with patient: 35 or more minutes Anticipated Discharge Disposition: Psych Hospital/Unit Anticipated Discharge Timeframe: within 24 hours
[2020-01-22] MEDS: PANTOPRAZOLE SODIUM 40 MG TABLET.DR PO SCH ×2 (05:17→17:11)
[2020-01-22] MEDS: HEPARIN SOD (PORCINE) 5,000 UNIT/ML 1 ML VIAL SUBCUT SCH ×3 (05:17→21:30)
[2020-01-22 07:24] LABS: ANION GAP 11 (5-19); BLOOD UREA NITROGEN 33 mg/dL (7-20); CALCIUM 8.7 mg/dL (8.4-10.2); CARBON DIOXIDE 21 mmol/L (22-30); CHLORIDE 102 mmol/L (98-107); GLUCOSE 91 mg/dL (75-110); POTASSIUM 3.9 mmol/L (3.6-5.0)
[2020-01-22] MEDS: DIVALPROEX SODIUM 500 MG TAB.SR.24H PO SCH ×2 (09:34→21:29)
[2020-01-22] MEDS: RISPERIDONE 0.25 MG TABLET PO SCH ×2 (09:34→21:29)
[2020-01-22] MEDS: BUSPIRONE HCL 10 MG TABLET PO SCH ×2 (09:35→21:29)
[2020-01-22] MEDS: FINASTERIDE 5 MG TABLET PO SCH (09:35)
[2020-01-22] MEDS: SODIUM CHLORIDE 1 GM TABLET PO SCH (09:45)
[2020-01-22] MEDS: DILTIAZEM HCL 180 MG CAPSULE.CR PO SCH (09:45)
[2020-01-22] MEDS: FLUTICASONE/VILANTEROL 200-25 MCG/DOSE IH SCH (09:45)
[2020-01-22] MEDS: NICOTINE 21 MG/24 HR PATCH.TD24 TD SCH (09:45)
[2020-01-22] MEDS: GABAPENTIN 300 MG CAPSULE PO SCH (13:45)
[2020-01-22] MEDS: TAMSULOSIN HCL 0.4 MG CAP.SR.24H PO SCH (17:11)
--- NOTE | 2020-01-22 17:57 | PDOC PROGRESS REPORT ---
Subjective Progress Note for:: 01/22/20 Subjective:: Patient is feeling well. Walking in the hallways with a sitter. Mood much improved over the last 2 days. He is requesting that his Hess catheter be removed again for a voiding trial. Reason For Visit: HYPONATREMIA Physical Exam Vital Signs: Temp Pulse Resp BP Pulse Ox 97.2 F 86 12 137/88 H 100 01/22/20 08:31 01/22/20 15:44 01/22/20 15:44 01/22/20 15:44 01/22/20 15:44 Intake & Output 01/21/20 01/22/20 01/23/20 06:59 06:59 06:59 Intake Total 558 2260 Output Total 1300 1825 Balance -742 435 Weight 79.3 kg 83.3 kg General appearance: PRESENT: no acute distress, cooperative Eye exam: ABSENT: scleral icterus Mouth exam: PRESENT: moist Neck exam: ABSENT: JVD Respiratory exam: PRESENT: clear to auscultation alan Cardiovascular exam: PRESENT: RRR Vascular exam: ABSENT: pallor GI/Abdominal exam: PRESENT: normal bowel sounds, soft Gentrourinary exam: PRESENT: indwelling catheter Extremities exam: ABSENT: pedal edema Neurological exam: PRESENT: alert, awake, normal gait Psychiatric exam: ABSENT: agitated Skin exam: ABSENT: rash Results Laboratory Results: 01/21/20 09:16 01/22/20 05:59 01/22/20 05:59 Sodium 134.0 L Potassium 3.9 Chloride 102 Carbon Dioxide 21 L Anion Gap 11 BUN 33 H Creatinine 1.20 Est GFR ( Amer) > 60 Glucose 91 Calcium 8.7 12/25/19 12/25/19 12/25/19 13:39 13:39 13:39 Creatine Kinase 176 H Cancelled Troponin I 0.068 NT-Pro-B Natriuret Pep 12/25/19 12/26/19 21:27 05:40 Creatine Kinase Troponin I 0.127 0.096 NT-Pro-B Natriuret Pep 818 H Impressions: Chest X-Ray 12/29/19 07:00 IMPRESSION: NO ACUTE RADIOGRAPHIC FINDING IN THE CHEST. Head CT 01/19/20 00:00 IMPRESSION: MILD CHRONIC CHANGES OF ATROPHY AND MICROVASCULAR ISCHEMIA. NO ACUTE PROCESS. EVIDENCE OF ACUTE STROKE: NO. Assessment and Plan - Diagnosis (1) Acute metabolic encephalopathy Is this a current diagnosis for this admission?: Yes (2) Acute urinary retention Is this a current diagnosis for this admission?: Yes (3) Dehydration Is this a current diagnosis for this admission?: Yes (4) Hyponatremia syndrome Is this a current diagnosis for this admission?: Yes (5) Schizophrenia Qualifiers: Schizophrenia type: unspecified Qualified Code(s): F20.9 - Schizophrenia, unspecified Is this a current diagnosis for this admission?: Yes (6) Primary polydipsia Is this a current diagnosis for this admission?: Yes (7) Acute kidney injury Is this a current diagnosis for this admission?: Yes - Plan Summary Summary: Mr. Nathan Joy is a 59 year old man with PMH of HTN, HLD, vascular dementia, and schizophrenia c/b SIADH with resultant chronic hyponatremia who presented to the ED on 12/25/2019 after escaping from [facility] and being found wandering outside. He was found to be lethargic. Initial labs were concerning for severe hyponatremia, sodium 116. There was concern for possible "seizure like activity" in the ED. Nephrology was consulted and recommended giving 3% hypertonic saline due to acute mental status changes associated with severe hyponatremia. Psychiatry was consulted and made medication recommendations. Hospital course has been prolonged due to the fact that he is awaiting octavio/psych placement. Acute metabolic encephalopathy: multifactorial due to acute on chronic hyponatremia superimposed on schizophrenia and possibly advancing vascular dementia. He now appears to be at baseline mental status, which is impulsive, with waxing and waning orientation. He is awaiting octavio/psych facility placement. Hyponatremia due to SIADH: resolved with 1 L/day fluid restriction + NaCl 1 g ta blet daily. Likely due to medication effect (antipsychotics and Depakote are both known to cause SIADH). - liberalize salt intake BLANCA: due to dehydration as a result of strict fluid restriction. After liberalizing fluid intake yesterday, BLANCA improved today. - unable to give IVF today as patient is refusing PIV placement on multiple attempts - liberalize oral fluid intake to improve hydration - repeat BMP in AM - hold ACEI/ARB therapy for now - avoid nephrotoxins - renally dose medications Essential Hypertension: controlled - continue cardizem Acute urinary retention: remove Hess on 01/21, attempt another voiding trial - continue Flomax/Proscar - Q6H bladder scan to check post-void residual, replace Hess if >500mL retention and patient unable to urinate DVT ppx: heparin - Time Time Spent with patient: 35 or more minutes Anticipated Discharge Disposition: Psych Hospital/Unit Anticipated Discharge Timeframe: within 24 hours
[2020-01-23] MEDS: DIAZEPAM 5 MG TABLET PO PRN ×2 (02:01→09:39)
[2020-01-23] MEDS: HEPARIN SOD (PORCINE) 5,000 UNIT/ML 1 ML VIAL SUBCUT SCH ×3 (05:13→21:29)
[2020-01-23] MEDS: PANTOPRAZOLE SODIUM 40 MG TABLET.DR PO SCH ×2 (05:13→17:24)
[2020-01-23 05:48] LABS: ANION GAP 8 (5-19); BLOOD UREA NITROGEN 22 mg/dL (7-20); CALCIUM 8.9 mg/dL (8.4-10.2); CARBON DIOXIDE 23 mmol/L (22-30); CHLORIDE 104 mmol/L (98-107); GLUCOSE 89 mg/dL (75-110); POTASSIUM 4.4 mmol/L (3.6-5.0)
[2020-01-23] MEDS: BUSPIRONE HCL 10 MG TABLET PO SCH ×2 (09:38→21:29)
[2020-01-23] MEDS: FINASTERIDE 5 MG TABLET PO SCH (09:38)
[2020-01-23] MEDS: SODIUM CHLORIDE 1 GM TABLET PO SCH (09:38)
[2020-01-23] MEDS: RISPERIDONE 0.25 MG TABLET PO SCH ×2 (09:39→21:29)
[2020-01-23] MEDS: DILTIAZEM HCL 180 MG CAPSULE.CR PO SCH (09:39)
[2020-01-23] MEDS: DIVALPROEX SODIUM 500 MG TAB.SR.24H PO SCH ×2 (09:39→21:29)
[2020-01-23] MEDS: NICOTINE 21 MG/24 HR PATCH.TD24 TD SCH (09:39)
[2020-01-23] MEDS: FLUTICASONE/VILANTEROL 200-25 MCG/DOSE IH SCH (13:14)
[2020-01-23] MEDS: GABAPENTIN 300 MG CAPSULE PO SCH (13:19)
[2020-01-23] MEDS: TAMSULOSIN HCL 0.4 MG CAP.SR.24H PO SCH (17:24)
--- NOTE | 2020-01-23 18:41 | PDOC PROGRESS REPORT ---
Subjective Progress Note for:: 01/23/20 Subjective:: NAEO Reason For Visit: HYPONATREMIA Physical Exam Vital Signs: Temp Pulse Resp BP Pulse Ox 97.8 F 76 18 122/73 99 01/23/20 15:13 01/23/20 15:13 01/23/20 15:13 01/23/20 15:13 01/23/20 15:13 Intake & Output 01/22/20 01/23/20 01/24/20 06:59 06:59 06:59 Intake Total 2260 1006 960 Output Total 1825 2550 500 Balance 435 -1544 460 Weight 83.3 kg 83.2 kg 83.2 kg General appearance: PRESENT: no acute distress, cooperative Eye exam: ABSENT: scleral icterus Mouth exam: PRESENT: moist Throat exam: ABSENT: post pharyngeal erythema Neck exam: ABSENT: JVD Respiratory exam: PRESENT: clear to auscultation alan, unlabored Cardiovascular exam: PRESENT: RRR GI/Abdominal exam: PRESENT: normal bowel sounds, soft. ABSENT: tenderness Gentrourinary exam: ABSENT: indwelling catheter Extremities exam: ABSENT: pedal edema Musculoskeletal exam: PRESENT: ambulatory Neurological exam: PRESENT: alert, awake Psychiatric exam: PRESENT: flat affect Skin exam: ABSENT: rash Results Laboratory Results: 01/21/20 09:16 01/23/20 04:59 01/23/20 04:59 Sodium 135.1 L Potassium 4.4 Chloride 104 Carbon Dioxide 23 Anion Gap 8 BUN 22 H Creatinine 1.23 Est GFR ( Amer) > 60 Glucose 89 Calcium 8.9 12/25/19 12/25/19 12/25/19 13:39 13:39 13:39 Creatine Kinase 176 H Cancelled Troponin I 0.068 NT-Pro-B Natriuret Pep 12/25/19 12/26/19 21:27 05:40 Creatine Kinase Troponin I 0.127 0.096 NT-Pro-B Natriuret Pep 818 H Impressions: Chest X-Ray 12/29/19 07:00 IMPRESSION: NO ACUTE RADIOGRAPHIC FINDING IN THE CHEST. Head CT 01/19/20 00:00 IMPRESSION: MILD CHRONIC CHANGES OF ATROPHY AND MICROVASCULAR ISCHEMIA. NO ACUTE PROCESS. EVIDENCE OF ACUTE STROKE: NO. Assessment and Plan - Diagnosis (1) Acute metabolic encephalopathy Is this a current diagnosis for this admission?: Yes (2) Acute urinary retention Is this a current diagnosis for this admission?: Yes (3) Dehydration Is this a current diagnosis for this admission?: Yes (4) Hyponatremia syndrome Is this a current diagnosis for this admission?: Yes (5) Schizophrenia Qualifiers: Schizophrenia type: unspecified Qualified Code(s): F20.9 - Schizophrenia, unspecified Is this a current diagnosis for this admission?: Yes (6) Primary polydipsia Is this a current diagnosis for this admission?: Yes (7) Acute kidney injury Is this a current diagnosis for this admission?: Yes - Plan Summary Summary: Mr. Nathan Joy is a 59 year old man with PMH of HTN, HLD, vascular dementia, and schizophrenia c/b SIADH with resultant chronic hyponatremia who presented to the ED on 12/25/2019 after escaping from [facility] and being found wandering outside. He was found to be lethargic. Initial labs were concerning for severe hyponatremia, sodium 116. There was concern for possible "seizure like activity" in the ED. Nephrology was consulted and recommended giving 3% hypertonic saline due to acute mental status changes associated with severe hyponatremia. Psychiatry was consulted and made medication recommendations. Hospital course has been prolonged due to the fact that he is awaiting octavio/psych placement. Acute metabolic encephalopathy: multifactorial due to acute on chronic hy ponatremia superimposed on schizophrenia and possibly advancing vascular dementia. He now appears to be at baseline mental status, which is impulsive, with waxing and waning orientation. He is awaiting octavio/psych facility placement. Hyponatremia due to SIADH: resolved with 1 L/day fluid restriction + NaCl 1 g tablet daily. Likely due to medication effect (antipsychotics and Depakote are both known to cause SIADH). - liberalize salt intake BLANCA: due to dehydration as a result of strict fluid restriction. After liberalizing fluid intake yesterday, BLANCA improving. - unable to give IVF as patient is refusing PIV placement on multiple attempts - liberalize oral fluid intake to improve hydration - repeat BMP in AM - hold ACEI/ARB therapy for now - avoid nephrotoxins - renally dose medications Essential Hypertension: controlled - continue cardizem Acute urinary retention: Resolved. Removed Hess on 01/21 and patient finally passed voiding trial. - continue Flomax/Proscar DVT ppx: heparin - Time Time Spent with patient: 35 or more minutes Anticipated Discharge Disposition: Psych Hospital/Unit Anticipated Discharge Timeframe: within 24 hours
[2020-01-24] MEDS: DIAZEPAM 5 MG TABLET PO PRN ×2 (02:31→11:23)
[2020-01-24] MEDS: PANTOPRAZOLE SODIUM 40 MG TABLET.DR PO SCH ×2 (06:08→17:43)
[2020-01-24] MEDS: HEPARIN SOD (PORCINE) 5,000 UNIT/ML 1 ML VIAL SUBCUT SCH ×2 (06:08→15:36)
[2020-01-24] MEDS: BUSPIRONE HCL 10 MG TABLET PO SCH ×2 (10:07→21:25)
[2020-01-24] MEDS: ISOSORBIDE MONONITRATE 30 MG TAB.ER.24H PO SCH (10:07)
[2020-01-24] MEDS: DIVALPROEX SODIUM 500 MG TAB.SR.24H PO SCH ×2 (10:07→21:25)
[2020-01-24] MEDS: FLUTICASONE/VILANTEROL 200-25 MCG/DOSE IH SCH (10:07)
[2020-01-24] MEDS: SODIUM CHLORIDE 1 GM TABLET PO SCH (10:07)
[2020-01-24] MEDS: RISPERIDONE 0.25 MG TABLET PO SCH ×2 (10:07→21:25)
[2020-01-24] MEDS: DILTIAZEM HCL 180 MG CAPSULE.CR PO SCH (10:08)
[2020-01-24] MEDS: NICOTINE 21 MG/24 HR PATCH.TD24 TD SCH (10:08)
[2020-01-24] MEDS: FINASTERIDE 5 MG TABLET PO SCH (10:08)
[2020-01-24 10:20] LABS: ANION GAP 11 (5-19); BLOOD UREA NITROGEN 21 mg/dL (7-20); CARBON DIOXIDE 22 mmol/L (22-30); CHLORIDE 101 mmol/L (98-107); GLUCOSE 136 mg/dL (75-110); POTASSIUM 4.4 mmol/L (3.6-5.0)
[2020-01-24] MEDS: GABAPENTIN 300 MG CAPSULE PO SCH (11:23)
--- NOTE | 2020-01-24 17:40 | PDOC PROGRESS REPORT ---
Subjective Progress Note for:: 01/24/20 Subjective:: NAEO Reason For Visit: HYPONATREMIA Physical Exam Vital Signs: Temp Pulse Resp BP Pulse Ox 98.4 F 81 12 115/58 L 99 01/24/20 10:00 01/24/20 08:26 01/24/20 08:26 01/24/20 08:26 01/24/20 08:26 Intake & Output 01/23/20 01/24/20 01/25/20 06:59 06:59 06:59 Intake Total 1006 960 Output Total 2550 1000 Balance -1544 -40 Weight 83.2 kg 83 kg General appearance: PRESENT: no acute distress, cooperative Eye exam: ABSENT: scleral icterus Mouth exam: PRESENT: dry mucosa Neck exam: ABSENT: JVD Respiratory exam: PRESENT: clear to auscultation alan, unlabored Cardiovascular exam: PRESENT: RRR GI/Abdominal exam: PRESENT: normal bowel sounds, soft. ABSENT: tenderness Rectal exam: PRESENT: deferred Gentrourinary exam: ABSENT: indwelling catheter Extremities exam: ABSENT: pedal edema Neurological exam: PRESENT: altered, awake Psychiatric exam: PRESENT: flat affect Results Laboratory Results: 01/21/20 09:16 01/24/20 08:57 01/24/20 08:57 Sodium 134.2 L Potassium 4.4 Chloride 101 Carbon Dioxide 22 Anion Gap 11 BUN 21 H Creatinine 1.27 H Est GFR ( Amer) > 60 Glucose 136 H Calcium 9.0 12/25/19 12/25/19 12/25/19 13:39 13:39 13:39 Creatine Kinase 176 H Cancelled Troponin I 0.068 NT-Pro-B Natriuret Pep 12/25/19 12/26/19 21:27 05:40 Creatine Kinase Troponin I 0.127 0.096 NT-Pro-B Natriuret Pep 818 H Impressions: Chest X-Ray 12/29/19 07:00 IMPRESSION: NO ACUTE RADIOGRAPHIC FINDING IN THE CHEST. Head CT 01/19/20 00:00 IMPRESSION: MILD CHRONIC CHANGES OF ATROPHY AND MICROVASCULAR ISCHEMIA. NO ACUTE PROCESS. EVIDENCE OF ACUTE STROKE: NO. Assessment and Plan - Diagnosis (1) Acute metabolic encephalopathy Is this a current diagnosis for this admission?: Yes (2) Acute urinary retention Is this a current diagnosis for this admission?: Yes (3) Dehydration Is this a current diagnosis for this admission?: Yes (4) Hyponatremia syndrome Is this a current diagnosis for this admission?: Yes (5) Schizophrenia Qualifiers: Schizophrenia type: unspecified Qualified Code(s): F20.9 - Schizophrenia, unspecified Is this a current diagnosis for this admission?: Yes (6) Primary polydipsia Is this a current diagnosis for this admission?: Yes (7) Acute kidney injury Is this a current diagnosis for this admission?: Yes - Plan Summary Summary: Mr. Nathan Joy is a 59 year old man with PMH of HTN, HLD, vascular dementia, and schizophrenia c/b SIADH with resultant chronic hyponatremia who presented to the ED on 12/25/2019 after escaping from [facility] and being found wandering outside. He was found to be lethargic. Initial labs were concerning for severe hyponatremia, sodium 116. There was concern for possible "seizure like activity" in the ED. Nephrology was consulted and recommended giving 3% hypertonic saline due to acute mental status changes associated with severe hyponatremia. Psychiatry was consulted and made medication recommendations. Hospital course has been prolonged due to the fact that he is awaiting octavio/psych placement. Acute metabolic encephalopathy: multifactorial due to acute on chronic hyponatremia superimposed on schizophrenia and possibly advancing vascular dementia. He now appears to be at baseline mental status, which is impulsive, with waxing and waning orientation. He is awaiting octavio/psych facility placement. Hyponatremia due to SIADH: resolved with 1 L/day fluid restriction + NaCl 1 g tablet daily. Likely due to medication effect (antipsychotics and Depakote are both known to cause SIADH). - liberalize salt intake BLANCA: due to dehydration as a result of strict fluid restriction. We have been unable to give IVF as patient is refusing PIV placement on multiple attempts, getting agitated when we try to place PIV. He no longer has urinary obstruction (he had PVR of less than 300 mL on multiple bladder scans after removal of Hess catheter). - liberalize oral fluid intake to improve hydration - repeat BMP in AM - hold ACEI/ARB therapy - avoid nephrotoxins - renally dose medications Essential Hypertension: BP elevated - continue cardizem - start Imdur Acute urinary retention: Resolved. Removed Hess on 01/21 and patient passed voiding trial. - continue Flomax/Proscar DVT ppx: heparin - Time Time Spent with patient: 35 or more minutes Anticipated Discharge Disposition: Psych Hospital/Unit Anticipated Discharge Timeframe: within 24 hours
[2020-01-24] MEDS: TAMSULOSIN HCL 0.4 MG CAP.SR.24H PO SCH (17:43)
[2020-01-24] MEDS: ACETAMINOPHEN 325 MG TABLET PO PRN (21:25)
[2020-01-25] MEDS: PANTOPRAZOLE SODIUM 40 MG TABLET.DR PO SCH ×2 (05:20→16:05)
[2020-01-25 05:40] LABS: ANION GAP 8 (5-19); BLOOD UREA NITROGEN 24 mg/dL (7-20); CARBON DIOXIDE 24 mmol/L (22-30); CHLORIDE 101 mmol/L (98-107); GLUCOSE 91 mg/dL (75-110); POTASSIUM 4.1 mmol/L (3.6-5.0)
[2020-01-25] MEDS: BUSPIRONE HCL 10 MG TABLET PO SCH ×2 (10:23→21:29)
[2020-01-25] MEDS: SODIUM CHLORIDE 1 GM TABLET PO SCH (10:23)
[2020-01-25] MEDS: DIVALPROEX SODIUM 500 MG TAB.SR.24H PO SCH ×2 (10:23→21:30)
[2020-01-25] MEDS: FLUTICASONE/VILANTEROL 200-25 MCG/DOSE IH SCH (10:23)
[2020-01-25] MEDS: FINASTERIDE 5 MG TABLET PO SCH (10:23)
[2020-01-25] MEDS: RISPERIDONE 0.25 MG TABLET PO SCH ×2 (10:23→21:30)
[2020-01-25] MEDS: ISOSORBIDE MONONITRATE 30 MG TAB.ER.24H PO SCH (10:23)
[2020-01-25] MEDS: DILTIAZEM HCL 180 MG CAPSULE.CR PO SCH (10:23)
[2020-01-25] MEDS: ONDANSETRON 4 MG TAB.RAPDIS PO PRN (10:30)
[2020-01-25] MEDS: GABAPENTIN 300 MG CAPSULE PO SCH (13:25)
--- NOTE | 2020-01-25 14:24 | PDOC PROGRESS REPORT ---
Subjective Progress Note for:: 01/25/20 Subjective:: NAEO Reason For Visit: HYPONATREMIA Physical Exam Vital Signs: Temp Pulse Resp BP Pulse Ox 97.9 F 83 18 121/85 97 01/25/20 10:00 01/25/20 07:21 01/25/20 07:21 01/25/20 07:21 01/25/20 07:21 Intake & Output 01/24/20 01/25/20 01/26/20 06:59 06:59 06:59 Intake Total 960 Output Total 1000 325 Balance -40 -325 Weight 83 kg 77.1 kg General appearance: PRESENT: no acute distress Eye exam: ABSENT: scleral icterus Mouth exam: PRESENT: moist Throat exam: ABSENT: post pharyngeal erythema Neck exam: ABSENT: JVD Respiratory exam: PRESENT: clear to auscultation alan, unlabored Cardiovascular exam: PRESENT: RRR GI/Abdominal exam: PRESENT: normal bowel sounds, soft Extremities exam: ABSENT: pedal edema Neurological exam: PRESENT: alert, awake Psychiatric exam: PRESENT: flat affect Skin exam: ABSENT: rash Results Laboratory Results: 01/21/20 09:16 01/25/20 05:02 01/25/20 05:02 Sodium 133.1 L Potassium 4.1 Chloride 101 Carbon Dioxide 24 Anion Gap 8 BUN 24 H Creatinine 1.13 Est GFR ( Amer) > 60 Glucose 91 Calcium 9.0 12/25/19 12/25/19 12/25/19 13:39 13:39 13:39 Creatine Kinase 176 H Cancelled Troponin I 0.068 NT-Pro-B Natriuret Pep 12/25/19 12/26/19 21:27 05:40 Creatine Kinase Troponin I 0.127 0.096 NT-Pro-B Natriuret Pep 818 H Impressions: Chest X-Ray 12/29/19 07:00 IMPRESSION: NO ACUTE RADIOGRAPHIC FINDING IN THE CHEST. Head CT 01/19/20 00:00 IMPRESSION: MILD CHRONIC CHANGES OF ATROPHY AND MICROVASCULAR ISCHEMIA. NO ACUTE PROCESS. EVIDENCE OF ACUTE STROKE: NO. Assessment and Plan - Diagnosis (1) Acute metabolic encephalopathy Is this a current diagnosis for this admission?: Yes (2) Acute urinary retention Is this a current diagnosis for this admission?: Yes (3) Dehydration Is this a current diagnosis for this admission?: Yes (4) Hyponatremia syndrome Is this a current diagnosis for this admission?: Yes (5) Schizophrenia Qualifiers: Schizophrenia type: unspecified Qualified Code(s): F20.9 - Schizophrenia, unspecified Is this a current diagnosis for this admission?: Yes (6) Primary polydipsia Is this a current diagnosis for this admission?: Yes (7) Acute kidney injury Is this a current diagnosis for this admission?: Yes - Plan Summary Summary: Mr. Nathan Joy is a 59 year old man with PMH of HTN, HLD, vascular dementia, and schizophrenia c/b SIADH with resultant chronic hyponatremia who presented to the ED on 12/25/2019 after escaping from [facility] and being found wandering outside. He was found to be lethargic. Initial labs were concerning for severe hyponatremia, sodium 116. There was concern for possible "seizure like activity" in the ED. Nephrology was consulted and recommended giving 3% hypertonic saline due to acute mental status changes associated with severe hyponatremia. Psychiatry was consulted and made medication recommendations. Hospital course has been prolonged due to the fact that he is awaiting octavio/psych placement. Acute metabolic encephalopathy: multifactorial due to acute on chronic h yponatremia superimposed on schizophrenia and possibly advancing vascular dementia. He now appears to be at baseline mental status, which is impulsive, with waxing and waning orientation. He is awaiting octavio/psych facility placement. Hyponatremia due to SIADH: resolved with 1 L/day fluid restriction + NaCl 1 g tablet daily. Likely due to medication effect (antipsychotics and Depakote are both known to cause SIADH). - liberalize salt intake BLANCA: Improving. Was due to dehydration as a result of strict fluid restriction. We have been unable to give IVF as patient is refusing PIV placement on multiple attempts, getting agitated when we try to place PIV. He no longer has urinary obstruction (he had PVR of less than 300 mL on multiple bladder scans after removal of Hess catheter). - liberalize oral fluid intake to improve hydration - repeat BMP in AM - hold ACEI/ARB therapy - avoid nephrotoxins - renally dose medications Essential Hypertension: controlled - continue cardizem and Imdur Acute urinary retention: Resolved. Removed Hess on 01/21 and patient passed voiding trial. - continue Flomax/Proscar DVT ppx: heparin - Time Time Spent with patient: 25-34 minutes Anticipated Discharge Disposition: Psych Hospital/Unit Anticipated Discharge Timeframe: within 24 hours
[2020-01-25] MEDS: TAMSULOSIN HCL 0.4 MG CAP.SR.24H PO SCH (17:28)
[2020-01-25] MEDS: ACETAMINOPHEN 325 MG TABLET PO PRN (21:30)
[2020-01-26] MEDS: PANTOPRAZOLE SODIUM 40 MG TABLET.DR PO SCH ×2 (05:05→17:06)
[2020-01-26 06:09] LABS: ANION GAP 9 (5-19); BLOOD UREA NITROGEN 23 mg/dL (7-20); CALCIUM 8.5 mg/dL (8.4-10.2); CARBON DIOXIDE 24 mmol/L (22-30); CHLORIDE 101 mmol/L (98-107); GLUCOSE 94 mg/dL (75-110); POTASSIUM 4.4 mmol/L (3.6-5.0)
[2020-01-26] MEDS: FLUTICASONE/VILANTEROL 200-25 MCG/DOSE IH SCH (09:57)
[2020-01-26] MEDS: DILTIAZEM HCL 180 MG CAPSULE.CR PO SCH (09:57)
[2020-01-26] MEDS: DIVALPROEX SODIUM 500 MG TAB.SR.24H PO SCH ×2 (09:58→21:30)
[2020-01-26] MEDS: FINASTERIDE 5 MG TABLET PO SCH (09:58)
[2020-01-26] MEDS: RISPERIDONE 0.25 MG TABLET PO SCH ×2 (09:58→21:30)
[2020-01-26] MEDS: SODIUM CHLORIDE 1 GM TABLET PO SCH (09:58)
[2020-01-26] MEDS: ISOSORBIDE MONONITRATE 30 MG TAB.ER.24H PO SCH (09:58)
[2020-01-26] MEDS: BUSPIRONE HCL 10 MG TABLET PO SCH ×2 (10:23→21:30)
[2020-01-26] MEDS: GABAPENTIN 300 MG CAPSULE PO SCH (12:28)
[2020-01-26] MEDS ORDERED: GUAIFENESIN SYRP 200 MG/10 ML UDC PO PRN (13:03)
[2020-01-26] MEDS ORDERED: MAG HYDROX/AL HYDROX/SIMETH SUSP 30 ML UDCUP PO PRN (13:03)
[2020-01-26] MEDS: HEPARIN SOD (PORCINE) 5,000 UNIT/ML 1 ML VIAL SUBCUT SCH ×2 (13:42→21:31)
[2020-01-26] MEDS: NICOTINE 21 MG/24 HR PATCH.TD24 TD SCH (13:59)
--- NOTE | 2020-01-26 14:24 | PDOC PROGRESS REPORT ---
Subjective Progress Note for:: 01/26/20 Subjective:: NAEO Reason For Visit: HYPONATREMIA Physical Exam Vital Signs: Temp Pulse Resp BP Pulse Ox 98.0 F 74 20 116/75 94 01/26/20 10:59 01/26/20 10:59 01/26/20 10:59 01/26/20 10:59 01/26/20 10:59 Intake & Output 01/25/20 01/26/20 01/27/20 06:59 06:59 06:59 Intake Total 1739 Output Total 325 2000 Balance -325 -261 Weight 77.1 kg 82.9 kg General appearance: PRESENT: no acute distress, cooperative Eye exam: ABSENT: scleral icterus Mouth exam: PRESENT: moist Throat exam: ABSENT: post pharyngeal erythema Neck exam: ABSENT: JVD Respiratory exam: PRESENT: clear to auscultation alan Cardiovascular exam: PRESENT: RRR GI/Abdominal exam: PRESENT: normal bowel sounds, soft Extremities exam: ABSENT: pedal edema Neurological exam: PRESENT: alert, altered, awake Psychiatric exam: PRESENT: flat affect Skin exam: ABSENT: rash Results Laboratory Results: 01/21/20 09:16 01/26/20 05:25 01/26/20 05:25 Sodium 133.5 L Potassium 4.4 Chloride 101 Carbon Dioxide 24 Anion Gap 9 BUN 23 H Creatinine 1.12 Est GFR ( Amer) > 60 Glucose 94 Calcium 8.5 12/25/19 12/25/19 12/25/19 13:39 13:39 13:39 Creatine Kinase 176 H Cancelled Troponin I 0.068 NT-Pro-B Natriuret Pep 12/25/19 12/26/19 21:27 05:40 Creatine Kinase Troponin I 0.127 0.096 NT-Pro-B Natriuret Pep 818 H Impressions: Chest X-Ray 12/29/19 07:00 IMPRESSION: NO ACUTE RADIOGRAPHIC FINDING IN THE CHEST. Head CT 01/19/20 00:00 IMPRESSION: MILD CHRONIC CHANGES OF ATROPHY AND MICROVASCULAR ISCHEMIA. NO ACUTE PROCESS. EVIDENCE OF ACUTE STROKE: NO. Assessment and Plan - Diagnosis (1) Acute metabolic encephalopathy Is this a current diagnosis for this admission?: Yes (2) Acute urinary retention Is this a current diagnosis for this admission?: Yes (3) Dehydration Is this a current diagnosis for this admission?: Yes (4) Hyponatremia syndrome Is this a current diagnosis for this admission?: Yes (5) Schizophrenia Qualifiers: Schizophrenia type: unspecified Qualified Code(s): F20.9 - Schizophrenia, unspecified Is this a current diagnosis for this admission?: Yes (6) Primary polydipsia Is this a current diagnosis for this admission?: Yes (7) Acute kidney injury Is this a current diagnosis for this admission?: Yes - Plan Summary Summary: Mr. Nathan Joy is a 59 year old man with PMH of HTN, HLD, vascular dementia, and schizophrenia c/b SIADH with resultant chronic hyponatremia who presented to the ED on 12/25/2019 after escaping from [facility] and being found wandering outside. He was found to be lethargic. Initial labs were concerning for severe hyponatremia, sodium 116. There was concern for possible "seizure like activity" in the ED. Nephrology was consulted and recommended giving 3% hypertonic saline due to acute mental status changes associated with severe hyponatremia. Psychiatry was consulted and made medication recommendations. Hospital course has been prolonged due to the fact that he is awaiting octavio/p sych placement. Acute metabolic encephalopathy: multifactorial due to acute on chronic hyponatremia superimposed on schizophrenia and possibly advancing vascular dementia. He now appears to be at baseline mental status, which is impulsive, with waxing and waning orientation. He is awaiting octavio/psych facility placement. Hyponatremia due to SIADH: resolved with NaCl 1 g tablet daily. Likely due to medication effect (antipsychotics and Depakote are both known to cause SIADH). - liberalize salt intake BLANCA: Improving. Was due to dehydration as a result of strict fluid restriction. We have been unable to give IVF as patient is refusing PIV placement on multiple attempts, getting agitated when we try to place PIV. He no longer has urinary obstruction (he had PVR of less than 300 mL on multiple bladder scans after r emoval of Hess catheter). - liberalize oral fluid intake to improve hydration - repeat BMP in AM - hold ACEI/ARB therapy - avoid nephrotoxins - renally dose medications Essential Hypertension: controlled - continue cardizem and Imdur Acute urinary retention: Resolved. Removed Hess on 01/21 and patient passed voiding trial. - continue Flomax/Proscar DVT ppx: heparin - Time Time Spent with patient: 25-34 minutes Anticipated Discharge Disposition: Psych Hospital/Unit Anticipated Discharge Timeframe: within 24 hours
[2020-01-26] MEDS: TAMSULOSIN HCL 0.4 MG CAP.SR.24H PO SCH (17:06)
[2020-01-27] MEDS: HEPARIN SOD (PORCINE) 5,000 UNIT/ML 1 ML VIAL SUBCUT SCH ×3 (05:03→21:03)
[2020-01-27] MEDS: PANTOPRAZOLE SODIUM 40 MG TABLET.DR PO SCH ×2 (05:04→17:45)
[2020-01-27 05:57] LABS: ANION GAP 10 (5-19); BLOOD UREA NITROGEN 17 mg/dL (7-20); CALCIUM 9.1 mg/dL (8.4-10.2); CARBON DIOXIDE 26 mmol/L (22-30); CHLORIDE 99 mmol/L (98-107); GLUCOSE 91 mg/dL (75-110); POTASSIUM 4.3 mmol/L (3.6-5.0)
[2020-01-27] MEDS: ISOSORBIDE MONONITRATE 30 MG TAB.ER.24H PO SCH (09:31)
[2020-01-27] MEDS: DILTIAZEM HCL 180 MG CAPSULE.CR PO SCH (09:32)
[2020-01-27] MEDS: RISPERIDONE 0.25 MG TABLET PO SCH ×2 (09:32→21:08)
[2020-01-27] MEDS: FLUTICASONE/VILANTEROL 200-25 MCG/DOSE IH SCH (09:32)
[2020-01-27] MEDS: DIVALPROEX SODIUM 500 MG TAB.SR.24H PO SCH ×2 (09:32→21:09)
[2020-01-27] MEDS: FINASTERIDE 5 MG TABLET PO SCH (09:32)
[2020-01-27] MEDS: NICOTINE 21 MG/24 HR PATCH.TD24 TD SCH (09:32)
[2020-01-27] MEDS: SODIUM CHLORIDE 1 GM TABLET PO SCH (09:32)
[2020-01-27] MEDS: BUSPIRONE HCL 10 MG TABLET PO SCH ×2 (09:32→21:08)
[2020-01-27] MEDS: GABAPENTIN 300 MG CAPSULE PO SCH (12:04)
[2020-01-27] MEDS: TAMSULOSIN HCL 0.4 MG CAP.SR.24H PO SCH (17:45)
[2020-01-27] MEDS: DIAZEPAM 5 MG TABLET PO PRN (20:17)
--- NOTE | 2020-01-27 20:46 | PDOC PROGRESS REPORT ---
Subjective Progress Note for:: 01/27/20 Subjective:: NAEO Reason For Visit: HYPONATREMIA Physical Exam Vital Signs: Temp Pulse Resp BP Pulse Ox 97.5 F 102 H 16 123/77 99 01/27/20 12:36 01/27/20 12:36 01/27/20 12:36 01/27/20 12:36 01/27/20 12:36 Intake & Output 01/26/20 01/27/20 01/28/20 06:59 06:59 06:59 Intake Total 7693 418 4184 Output Total 1999 1150 275 Balance -261 -430 1163 Weight 82.9 kg 83.1 kg General appearance: PRESENT: no acute distress, cooperative Eye exam: ABSENT: scleral icterus Mouth exam: PRESENT: moist Throat exam: ABSENT: post pharyngeal erythema Neck exam: ABSENT: JVD Respiratory exam: PRESENT: clear to auscultation alan, unlabored Cardiovascular exam: PRESENT: RRR GI/Abdominal exam: PRESENT: normal bowel sounds, soft. ABSENT: tenderness Extremities exam: ABSENT: pedal edema Neurological exam: PRESENT: alert, awake Psychiatric exam: PRESENT: flat affect Skin exam: ABSENT: rash Results Laboratory Results: 01/21/20 09:16 01/27/20 04:09 01/27/20 04:09 Sodium 134.9 L Potassium 4.3 Chloride 99 Carbon Dioxide 26 Anion Gap 10 BUN 17 Creatinine 1.17 Est GFR ( Amer) > 60 Glucose 91 Calcium 9.1 12/25/19 12/25/19 12/25/19 13:39 13:39 13:39 Creatine Kinase 176 H Cancelled Troponin I 0.068 NT-Pro-B Natriuret Pep 12/25/19 12/26/19 21:27 05:40 Creatine Kinase Troponin I 0.127 0.096 NT-Pro-B Natriuret Pep 818 H Impressions: Chest X-Ray 12/29/19 07:00 IMPRESSION: NO ACUTE RADIOGRAPHIC FINDING IN THE CHEST. Head CT 01/19/20 00:00 IMPRESSION: MILD CHRONIC CHANGES OF ATROPHY AND MICROVASCULAR ISCHEMIA. NO ACUTE PROCESS. EVIDENCE OF ACUTE STROKE: NO. Assessment and Plan - Diagnosis (1) Acute metabolic encephalopathy Is this a current diagnosis for this admission?: Yes (2) Acute urinary retention Is this a current diagnosis for this admission?: Yes (3) Dehydration Is this a current diagnosis for this admission?: Yes (4) Hyponatremia syndrome Is this a current diagnosis for this admission?: Yes (5) Schizophrenia Qualifiers: Schizophrenia type: unspecified Qualified Code(s): F20.9 - Schizophrenia, unspecified Is this a current diagnosis for this admission?: Yes (6) Primary polydipsia Is this a current diagnosis for this admission?: Yes (7) Acute kidney injury Is this a current diagnosis for this admission?: Yes - Plan Summary Summary: Mr. Nathan Joy is a 59 year old man with PMH of HTN, HLD, vascular dementia, and schizophrenia c/b SIADH with resultant chronic hyponatremia who presented to the ED on 12/25/2019 after escaping from [facility] and being found wandering outside. He was found to be lethargic. Initial labs were concerning for severe hyponatremia, sodium 116. There was concern for possible "seizure like activity" in the ED. Nephrology was consulted and recommended giving 3% hypertonic saline due to acute mental status changes associated with severe hyponatremia. Psychiatry was consulted and made medication recommendations. Hospital course has been prolonged due to the fact that he is awaiting [facility]/psych placement. Acute metabolic encephalopathy: multifactorial due to acute on chronic hyponatremia superimposed on schizophrenia and possibly advancing vascular dementia. He now appears to be at baseline mental status, which is impulsive, with waxing and waning orientation. He is awaiting [facility]av[facility]/psych facility placement. Hyponatremia due to SIADH: resolved with NaCl 1 g tablet daily. Likely due to medication effect (antipsychotics and Depakote are both known to cause SIADH). - liberalize salt intake BLANCA: Improving. Was due to dehydration as a result of strict fluid restriction. We have been unable to give IVF as patient is refusing PIV placement on multiple attempts, getting agitated when we try to place PIV. He no longer has urinary obstruction (he had PVR of less than 300 mL on multiple bladder scans after removal of Hess catheter). - liberalize oral fluid intake to improve hydration - repeat BMP in AM - hold ACEI/ARB therapy - avoid nephrotoxins - renally dose medications Essential Hypertension: controlled - continue cardizem and Imdur Acute urinary retention: Resolved. Removed Hess on 01/21 and patient passed voiding trial. - continue Flomax/Proscar DVT ppx: heparin Dispo: behaviors are well controlled on current medication regimen. He is awaiting placement in [facility]/psych facility. SW following. - Time Time Spent with patient: 25-34 minutes Anticipated Discharge Disposition: Psych Hospital/Unit Anticipated Discharge Timeframe: within 24 hours
[2020-01-28] MEDS: HEPARIN SOD (PORCINE) 5,000 UNIT/ML 1 ML VIAL SUBCUT SCH ×3 (06:07→21:34)
[2020-01-28] MEDS: PANTOPRAZOLE SODIUM 40 MG TABLET.DR PO SCH ×2 (06:08→17:24)
[2020-01-28 08:35] LABS: ANION GAP 13 (5-19); BLOOD UREA NITROGEN 23 mg/dL (7-20); CALCIUM 9.4 mg/dL (8.4-10.2); CARBON DIOXIDE 22 mmol/L (22-30); CHLORIDE 99 mmol/L (98-107); GLUCOSE 104 mg/dL (75-110); POTASSIUM 4.2 mmol/L (3.6-5.0)
[2020-01-28] MEDS: BUSPIRONE HCL 10 MG TABLET PO SCH (09:37)
[2020-01-28] MEDS: HALOPERIDOL 5 MG TABLET PO PRN (09:37)
[2020-01-28] MEDS: ISOSORBIDE MONONITRATE 30 MG TAB.ER.24H PO SCH (09:37)
[2020-01-28] MEDS: DILTIAZEM HCL 180 MG CAPSULE.CR PO SCH ×2 (09:37→12:00)
[2020-01-28] MEDS: SODIUM CHLORIDE 1 GM TABLET PO SCH (09:37)
[2020-01-28] MEDS: RISPERIDONE 0.25 MG TABLET PO SCH ×2 (09:38→21:39)
[2020-01-28] MEDS: NICOTINE 21 MG/24 HR PATCH.TD24 TD SCH (09:38)
[2020-01-28] MEDS: FINASTERIDE 5 MG TABLET PO SCH (09:38)
[2020-01-28] MEDS: FLUTICASONE/VILANTEROL 200-25 MCG/DOSE IH SCH (11:28)
[2020-01-28] MEDS: DIAZEPAM 5 MG TABLET PO PRN (11:29)
[2020-01-28] MEDS: DIVALPROEX SODIUM 500 MG TAB.SR.24H PO SCH ×2 (11:29→21:39)
--- NOTE | 2020-01-28 11:45 | PDOC PROGRESS REPORT ---
Subjective Progress Note for:: 01/28/20 Subjective:: Slightly agitated this morning. Is refusing to take medications. A sitter is in place. Reason For Visit: HYPONATREMIA Physical Exam Vital Signs: Temp Pulse Resp BP Pulse Ox 98.3 F 84 18 124/78 98 01/28/20 07:11 01/28/20 07:11 01/28/20 07:11 01/28/20 07:11 01/28/20 07:11 Intake & Output 01/27/20 01/28/20 01/29/20 06:59 06:59 06:59 Intake Total 720 2678 Output Total 1150 275 Balance -430 2403 Weight 83.1 kg 82.1 kg General appearance: PRESENT: no acute distress, cooperative - After some dialogue he became cooperative, well-developed, well-nourished Head exam: PRESENT: atraumatic, normocephalic Ear exam: PRESENT: normal external ear exam. ABSENT: bleeding, drainage Mouth exam: PRESENT: moist, tongue midline Respiratory exam: PRESENT: clear to auscultation alan, symmetrical, unlabored. ABSENT: prolonged expiratory phas, rales, rhonchi, tachypnea, wheezes Cardiovascular exam: PRESENT: RRR, +S1, +S2. ABSENT: bradycardia, diastolic murmur, irregular rhythm, systolic murmur, tachycardia GI/Abdominal exam: PRESENT: normal bowel sounds, soft. ABSENT: distended, guarding, tenderness Rectal exam: PRESENT: deferred Gentrourinary exam: ABSENT: indwelling catheter Extremities exam: ABSENT: pedal edema Musculoskeletal exam: PRESENT: ambulatory, normal inspection. ABSENT: deformity, dislocation Neurological exam: PRESENT: alert, awake, oriented to person Psychiatric exam: PRESENT: agitated - Slightly agitated this morning. ABSENT: anxious Skin exam: PRESENT: dry, normal color, warm. ABSENT: rash Results Laboratory Results: 01/21/20 09:16 01/28/20 07:37 01/28/20 07:37 Sodium 133.8 L Potassium 4.2 Chloride 99 Carbon Dioxide 22 Anion Gap 13 BUN 23 H Creatinine 1.41 H Est GFR ( Amer) > 60 Glucose 104 Calcium 9.4 12/25/19 12/25/19 12/25/19 13:39 13:39 13:39 Creatine Kinase 176 H Cancelled Troponin I 0.068 NT-Pro-B Natriuret Pep 12/25/19 12/26/19 21:27 05:40 Creatine Kinase Troponin I 0.127 0.096 NT-Pro-B Natriuret Pep 818 H Impressions: Chest X-Ray 12/29/19 07:00 IMPRESSION: NO ACUTE RADIOGRAPHIC FINDING IN THE CHEST. Head CT 01/19/20 00:00 IMPRESSION: MILD CHRONIC CHANGES OF ATROPHY AND MICROVASCULAR ISCHEMIA. NO ACUTE PROCESS. EVIDENCE OF ACUTE STROKE: NO. Assessment and Plan - Diagnosis (1) Acute metabolic encephalopathy Is this a current diagnosis for this admission?: Yes (2) Acute urinary retention Is this a current diagnosis for this admission?: Yes (3) Dehydration Is this a current diagnosis for this admission?: Yes (4) Hyponatremia Is this a current diagnosis for this admission?: Yes (5) Schizophrenia Qualifiers: Schizophrenia type: unspecified Qualified Code(s): F20.9 - Schizophrenia, unspecified Is this a current diagnosis for this admission?: Yes (6) Primary polydipsia Is this a current diagnosis for this admission?: Yes (7) Acute kidney injury Is this a current diagnosis for this admission?: Yes (8) Pneumonia Qualifiers: Pneumonia type: due to unspecified organism Laterality: left Lung location: lower lobe of lung Qualified Code(s): J18.9 - Pneumonia, unspecified organism Is this a current diagnosis for this admission?: Yes Plan: Resolved (9) Seizure Is this a current diagnosis for this admission?: Yes Plan: Per previous physician: "Seizure activity >72 hours Seizure activity noted while in the emergency department. Received loading dose of Dilantin followed by twice daily dosing until the patient has been seizure-free for greater than 48 hours. Have discontinued. Sodium is now improved and no longer a potential cause of seizure activity (129.5 today). We will continue seizure precautions and monitor closely." Continue Depakote (10) Hypertension Is this a current diagnosis for this admission?: No Plan: - stable - continue clonidine, cardizem, hydralazine and lisinopril (11) Tobacco abuse Is this a current diagnosis for this admission?: Yes Plan: Daily nicotine patch. (12) Abdominal pain Qualifiers: Abdominal location: epigastric Qualified Code(s): R10.13 - Epigastric pain Is this a current diagnosis for this admission?: Yes Plan: Resolved - Plan Summary Summary: Mr. Nathan Joy is a 59 year old man with PMH of HTN, HLD, vascular dementia, and schizophrenia c/b SIADH with resultant chronic hyponatremia who presented to the ED on 12/25/2019 after escaping from [facility] and being found wandering outside. He was found to be lethargic. Initial labs were concerning for severe hyponatremia, sodium 116. There was concern for possible "seizure like activity" in the ED. Nephrology was consulted and recommended giving 3% hy pertonic saline due to acute mental status changes associated with severe hyponatremia. Psychiatry was consulted and made medication recommendations. Hospital course has been prolonged due to the fact that he is awaiting [facility]av[facility]/psych placement. Acute metabolic encephalopathy: multifactorial due to acute on chronic hyponatremia superimposed on schizophrenia and possibly advancing vascular dementia. He now appears to be at baseline mental status, which is impulsive, with waxing and waning orientation. He is awaiting [facility]av[facility]/psych facility placement. 01/28/2020-somewhat agitated today and requiring a sitter. PRN medications are available. Hyponatremia due to SIADH: resolved with NaCl 1 g tablet daily. Likely due to medication effect (antipsychotics and Depakote are both known to cause SIADH). - liberalize salt intake 01/28/2020-serum sodium now 134. Continue current treatment plan. BLANCA: Improving. Was due to dehydration as a result of strict fluid restriction. We have been unable to give IVF as patient is refusing PIV placement on multiple attempts, getting agitated when we try to place PIV. He no longer has urinary obstruction (he had PVR of less than 300 mL on multiple bladder scans after removal of Hess catheter). - liberalize oral fluid intake to improve hydration - repeat BMP in AM - hold ACEI/ARB therapy - avoid nephrotoxins - renally dose medications 01/28/2020-possibly getting dehydrated again. BUN and creatinine have increased. Will recheck in a.m. before altering treatment plan. Essential Hypertension: controlled - continue cardizem and Imdur Acute urinary retention: Resolved. Removed Hess on 01/21 and patient passed voiding trial. - continue Flomax/Proscar DVT ppx: heparin Dispo: behaviors are well controlled on current medication regimen. He is awaiting placement in [facility]/psych facility. SW following. - Time Time Spent with patient: 15-24 minutes Medications reviewed and adjusted accordingly: Yes Anticipated Discharge Disposition: Psych Hospital/Unit Anticipated Discharge Timeframe: when bed available
[2020-01-28] MEDS: TAMSULOSIN HCL 0.4 MG CAP.SR.24H PO SCH (17:24)
[2020-01-29] MEDS: ACETAMINOPHEN 325 MG TABLET PO PRN ×4 (00:33→17:58)
[2020-01-29] MEDS: HEPARIN SOD (PORCINE) 5,000 UNIT/ML 1 ML VIAL SUBCUT SCH ×3 (05:01→21:09)
[2020-01-29] MEDS: PANTOPRAZOLE SODIUM 40 MG TABLET.DR PO SCH ×2 (05:01→17:03)
[2020-01-29 05:50] LABS: ANION GAP 13 (5-19); BLOOD UREA NITROGEN 25 mg/dL (7-20); CALCIUM 9.7 mg/dL (8.4-10.2); CARBON DIOXIDE 24 mmol/L (22-30); CHLORIDE 96 mmol/L (98-107); GLUCOSE 106 mg/dL (75-110); POTASSIUM 4.6 mmol/L (3.6-5.0)
[2020-01-29] MEDS: DIVALPROEX SODIUM 500 MG TAB.SR.24H PO SCH ×2 (10:28→21:11)
[2020-01-29] MEDS: DILTIAZEM HCL 180 MG CAPSULE.CR PO SCH (10:28)
[2020-01-29] MEDS: FLUTICASONE/VILANTEROL 200-25 MCG/DOSE IH SCH (10:28)
[2020-01-29] MEDS: SODIUM CHLORIDE 1 GM TABLET PO SCH (10:28)
[2020-01-29] MEDS: RISPERIDONE 0.25 MG TABLET PO SCH ×2 (10:29→21:11)
[2020-01-29] MEDS: NICOTINE 21 MG/24 HR PATCH.TD24 TD SCH (10:29)
[2020-01-29] MEDS: ISOSORBIDE MONONITRATE 30 MG TAB.ER.24H PO SCH (10:29)
[2020-01-29] MEDS: FINASTERIDE 5 MG TABLET PO SCH (10:29)
--- NOTE | 2020-01-29 12:50 | PDOC PROGRESS REPORT ---
Subjective Progress Note for:: 01/29/20 Subjective:: Patient is sitting on the edge of the bed. He is having questions about why he is in the hospital. I explained several of the medical aspects. He seemed to be accepting of this. Reason For Visit: HYPONATREMIA Physical Exam Vital Signs: Temp Pulse Resp BP Pulse Ox 97.4 F 104 H 20 137/83 H 100 01/29/20 08:27 01/29/20 08:27 01/29/20 08:27 01/29/20 08:27 01/29/20 08:27 Intake & Output 01/28/20 01/29/20 01/30/20 06:59 06:59 06:59 Intake Total 2678 1856 Output Total 275 1400 Balance 2403 456 Weight 82.1 kg 83.2 kg General appearance: PRESENT: no acute distress, cooperative, well-developed Head exam: PRESENT: atraumatic, normocephalic Respiratory exam: PRESENT: clear to auscultation alan, unlabored. ABSENT: wheezes Cardiovascular exam: PRESENT: RRR, +S1, +S2. ABSENT: bradycardia, diastolic murmur, systolic murmur, tachycardia GI/Abdominal exam: PRESENT: normal bowel sounds, soft. ABSENT: distended, guarding, tenderness Rectal exam: PRESENT: deferred Gentrourinary exam: ABSENT: indwelling catheter Extremities exam: ABSENT: pedal edema Musculoskeletal exam: PRESENT: ambulatory, normal inspection. ABSENT: deformity, dislocation Neurological exam: PRESENT: alert, awake, oriented to person. ABSENT: altered, oriented to situation - Patient does not seem to appreciate the fact that he is unable to care for himself. Psychiatric exam: PRESENT: flat affect. ABSENT: agitated - Quite sedate today, anxious Focused psych exam: ABSENT: delusional, paranoid, restlessness Skin exam: PRESENT: dry, normal color, warm. ABSENT: rash Results Laboratory Results: 01/21/20 09:16 01/29/20 04:29 01/29/20 04:29 Sodium 133.3 L Potassium 4.6 Chloride 96 L Carbon Dioxide 24 Anion Gap 13 BUN 25 H Creatinine 1.36 H Est GFR ( Amer) > 60 Glucose 106 Calcium 9.7 12/25/19 12/25/19 12/25/19 13:39 13:39 13:39 Creatine Kinase 176 H Cancelled Troponin I 0.068 NT-Pro-B Natriuret Pep 12/25/19 12/26/19 21:27 05:40 Creatine Kinase Troponin I 0.127 0.096 NT-Pro-B Natriuret Pep 818 H Impressions: Chest X-Ray 12/29/19 07:00 IMPRESSION: NO ACUTE RADIOGRAPHIC FINDING IN THE CHEST. Head CT 01/19/20 00:00 IMPRESSION: MILD CHRONIC CHANGES OF ATROPHY AND MICROVASCULAR ISCHEMIA. NO ACUTE PROCESS. EVIDENCE OF ACUTE STROKE: NO. Assessment and Plan - Diagnosis (1) Acute metabolic encephalopathy Is this a current diagnosis for this admission?: Yes Plan: Multifactorial: Hyponatremia superimposed on schizoaffective disorder, acute urinary retention Continue risperidone, buspar Sodium level gradually keila to normal Trend BMP Needs nursing facility placement with locked unit Waxing and waning agitation seems to be his personal baseline mentation (2) Acute urinary retention Is this a current diagnosis for this admission?: Yes (3) Dehydration Is this a current diagnosis for this admission?: Yes (4) Hyponatremia Is this a current diagnosis for this admission?: Yes (5) Schizophrenia Qualifiers: Schizophrenia type: unspecified Qualified Code(s): F20.9 - Schizophrenia, unspecified Is this a current diagnosis for this admission?: Yes (6) Primary polydipsia Is this a current diagnosis for this admission?: Yes (7) Acute kidney injury Is this a current diagnosis for this admission?: Yes (8) Pneumonia Qualifiers: Pneumonia type: due to unspecified organism Laterality: left Lung l ocation: lower lobe of lung Qualified Code(s): J18.9 - Pneumonia, unspecified organism Is this a current diagnosis for this admission?: Yes (9) Seizure Is this a current diagnosis for this admission?: Yes (10) Hypertension Is this a current diagnosis for this admission?: No (11) Tobacco abuse Is this a current diagnosis for this admission?: Yes (12) Abdominal pain Qualifiers: Abdominal location: epigastric Qualified Code(s): R10.13 - Epigastric pain Is this a current diagnosis for this admission?: Yes - Plan Summary Summary: Mr. Nathan Joy is a 59 year old man with PMH of HTN, HLD, vascular dementia, and schizophrenia c/b SIADH with resultant chronic hyponatremia who presented to the ED on 12/25/2019 after escaping from [facility] and being found wandering outside. He was found to be lethargic. Initial labs were concerning for severe hyponatremia, sodium 116. There was concern for possible "seizure like activity" in the ED. Nephrology was consulted and recommended giving 3% hypertonic saline due to acute mental status changes associated with severe hyponatremia. Psychiatry was consulted and made medication recommendations. Hospital course has been prolonged due to the fact that he is awaiting [facility]/psych placement. Acute metabolic encephalopathy: multifactorial due to acute on chronic hyponatremia superimposed on schizophrenia and possibly advancing vascular dementia. He now appears to be at baseline mental status, which is impulsive, with waxing and waning orientation. He is awaiting [facility]av[facility]/psych facility placement. 01/28/2020-somewhat agitated today and requiring a sitter. PRN medications are available. Hyponatremia due to SIADH: resolved with NaCl 1 g tablet daily. Likely due to medication effect (antipsychotics and Depakote are both known to cause SIADH). - liberalize salt intake 01/28/2020-serum sodium now 134. Continue current treatment plan. BLANCA: Improving. Was due to dehydration as a result of strict fluid restriction. We have been unable to give IVF as patient is refusing PIV placement on multiple attempts, getting agitated when we try to place PIV. He no longer has urinary obstruction (he had PVR of less than 300 mL on multiple bladder scans after removal of Hess catheter). - liberalize oral fluid intake to improve hydration - repeat BMP in AM - hold ACEI/ARB therapy - avoid nephrotoxins - renally dose medications 01/28/2020-possibly getting dehydrated again. BUN and creatinine have increased. Will recheck in a.m. before altering treatment plan. Essential Hypertension: controlled - continue cardizem and Imdur Acute urinary retention: Resolved. Removed Hess on 01/21 and patient passed voiding trial. - continue Flomax/Proscar DVT ppx: heparin Dispo: behaviors are well controlled on current medication regimen. He is awaiting placement in [facility]psych facility. SW following. 01/29/2020- Hyponatremia-serum sodium appears to be holding steady at 133. It has been between 130 and 136 over the last several blood tests. Acute kidney injury-BUN and creatinine are slightly better. The patient may need IV fluid. We will continue to monitor intake and output. No IV fluids as yet. Schizophrenia-continue current medication regimen. It seems to be working quite well. Awaiting placement as patient unable to live independently. - Time Time Spent with patient: 15-24 minutes Medications reviewed and adjusted accordingly: Yes Anticipated Discharge Disposition: Psych Hospital/Unit - Geriatric psych facility Anticipated Discharge Timeframe: when bed available
[2020-01-29] MEDS: DIAZEPAM 5 MG TABLET PO PRN ×2 (14:47→21:47)
[2020-01-29] MEDS: TAMSULOSIN HCL 0.4 MG CAP.SR.24H PO SCH (17:03)
[2020-01-30] MEDS: HEPARIN SOD (PORCINE) 5,000 UNIT/ML 1 ML VIAL SUBCUT SCH ×3 (05:07→21:21)
[2020-01-30] MEDS: PANTOPRAZOLE SODIUM 40 MG TABLET.DR PO SCH ×2 (05:07→17:27)
[2020-01-30 07:33] LABS: ANION GAP 9 (5-19); BLOOD UREA NITROGEN 18 mg/dL (7-20); CALCIUM 9.2 mg/dL (8.4-10.2); CARBON DIOXIDE 23 mmol/L (22-30); CHLORIDE 101 mmol/L (98-107); GLUCOSE 95 mg/dL (75-110); POTASSIUM 4.2 mmol/L (3.6-5.0)
[2020-01-30] MEDS: NICOTINE 21 MG/24 HR PATCH.TD24 TD SCH (10:27)
[2020-01-30] MEDS: DIVALPROEX SODIUM 500 MG TAB.SR.24H PO SCH ×2 (10:27→21:24)
[2020-01-30] MEDS: FLUTICASONE/VILANTEROL 200-25 MCG/DOSE IH SCH (10:27)
[2020-01-30] MEDS: ISOSORBIDE MONONITRATE 30 MG TAB.ER.24H PO SCH (10:28)
[2020-01-30] MEDS: RISPERIDONE 0.25 MG TABLET PO SCH ×2 (10:28→21:24)
[2020-01-30] MEDS: DILTIAZEM HCL 180 MG CAPSULE.CR PO SCH (10:28)
[2020-01-30] MEDS: FINASTERIDE 5 MG TABLET PO SCH (10:28)
[2020-01-30] MEDS: SODIUM CHLORIDE 1 GM TABLET PO SCH (10:28)
--- NOTE | 2020-01-30 14:34 | PDOC PROGRESS REPORT ---
Subjective Progress Note for:: 01/30/20 Subjective:: The patient is resting comfortably in bed. He was "explaining my situation" to the sitter. She states that he has been pleasant and not agitated today. He did mention that on occasion his stomach feels a little queasy. There is no pain. He thinks it could be related to Pepsi that he is drinking. His BUN and creatinine are slowly trending up. Reason For Visit: HYPONATREMIA Physical Exam Vital Signs: Temp Pulse Resp BP Pulse Ox 97.8 F 86 19 145/77 H 99 01/30/20 11:16 01/30/20 11:16 01/30/20 11:16 01/30/20 11:16 01/30/20 11:16 Intake & Output 01/29/20 01/30/20 01/31/20 06:59 06:59 06:59 Intake Total 1856 1500 260 Output Total 1400 Balance 456 1500 260 Weight 83.2 kg 82.2 kg General appearance: PRESENT: cooperative, mild distress, well-developed Head exam: PRESENT: atraumatic, normocephalic Teeth exam: PRESENT: poor dentation Neck exam: ABSENT: carotid bruit, JVD, lymphadenopathy Respiratory exam: PRESENT: clear to auscultation alan, symmetrical, unlabored. ABSENT: rales, rhonchi, tachypnea, wheezes Cardiovascular exam: PRESENT: RRR, +S1, +S2. ABSENT: bradycardia, diastolic murmur, irregular rhythm, systolic murmur, tachycardia GI/Abdominal exam: PRESENT: normal bowel sounds, soft. ABSENT: distended, guarding, mass, tenderness Rectal exam: PRESENT: deferred Gentrourinary exam: ABSENT: indwelling catheter Extremities exam: ABSENT: pedal edema Musculoskeletal exam: PRESENT: ambulatory, normal inspection. ABSENT: deformity, dislocation Neurological exam: PRESENT: alert, awake, oriented to person, oriented to situation - Partially oriented to situation. He does not understand why he is still in the hospital., CN II-XII grossly intact Psychiatric exam: PRESENT: appropriate affect. ABSENT: agitated, anxious Focused psych exam: ABSENT: delusional, paranoid, restlessness Skin exam: PRESENT: dry, normal color, warm. ABSENT: rash Results Laboratory Results: 01/21/20 09:16 01/30/20 06:49 01/30/20 06:49 Sodium 133.2 L Potassium 4.2 Chloride 101 Carbon Dioxide 23 Anion Gap 9 BUN 18 Creatinine 1.27 H Est GFR ( Amer) > 60 Glucose 95 Calcium 9.2 12/25/19 12/25/19 12/25/19 13:39 13:39 13:39 Creatine Kinase 176 H Cancelled Troponin I 0.068 NT-Pro-B Natriuret Pep 12/25/19 12/26/19 21:27 05:40 Creatine Kinase Troponin I 0.127 0.096 NT-Pro-B Natriuret Pep 818 H Impressions: Chest X-Ray 12/29/19 07:00 IMPRESSION: NO ACUTE RADIOGRAPHIC FINDING IN THE CHEST. Head CT 01/19/20 00:00 IMPRESSION: MILD CHRONIC CHANGES OF ATROPHY AND MICROVASCULAR ISCHEMIA. NO ACUTE PROCESS. EVIDENCE OF ACUTE STROKE: NO. Assessment and Plan - Diagnosis (1) Acute metabolic encephalopathy Is this a current diagnosis for this admission?: Yes Plan: Multifactorial: Hyponatremia superimposed on schizoaffective disorder, acute urinary retention Continue risperidone, buspar Sodium level gradually keila to normal Trend BMP Needs nursing facility placement with locked unit Waxing and waning agitation seems to be his personal baseline mentation (2) Acute urinary retention Is this a current diagnosis for this admission?: Yes (3) Dehydration Is this a current diagnosis for this admission?: Yes (4) Hyponatremia Is this a current diagnosis for this admission?: Yes (5) Schizophrenia Qualifiers: Schizophrenia type: unspecified Qualified Code(s): F20.9 - Schizophrenia, unspecified Is this a current diagnosis for this admission?: Yes (6) Primary polydipsia Is this a current diagnosis for this admission?: Yes (7) Acute kidney injury Is this a current diagnosis for this admission?: Yes (8) Pneumonia Qualifiers: Pneumonia type: due to unspecified organism Laterality: left Lung location: lower lobe of lung Qualified Code(s): J18.9 - Pneumonia, unspecified organism Is this a current diagnosis for this admission?: Yes (9) Seizure Is this a current diagnosis for this admission?: Yes (10) Hypertension Is this a current diagnosis for this admission?: No (11) Tobacco abuse Is this a current diagnosis for this admission?: Yes (12) Abdominal pain Qualifiers: Abdominal location: epigastric Qualified Code(s): R10.13 - Epigastric pain Is this a current diagnosis for this admission?: Yes - Plan Summary Summary: Mr. Nathan Joy is a 59 year old man with PMH of HTN, HLD, vascular dementia, and schizophrenia c/b SIADH with resultant chronic hyponatremia who presented to the ED on 12/25/2019 after escaping from [facility] and being found wandering outside. He was found to be lethargic. Initial labs were concerning for severe hyponatremia, sodium 116. There was concern for possible "seizure like activity" in the ED. Nephrology was consulted and recommended giving 3% h ypertonic saline due to acute mental status changes associated with severe hyponatremia. Psychiatry was consulted and made medication recommendations. Hospital course has been prolonged due to the fact that he is awaiting [facility]/psych placement. Acute metabolic encephalopathy: multifactorial due to acute on chronic hyponatremia superimposed on schizophrenia and possibly advancing vascular dementia. He now appears to be at baseline mental status, which is impulsive, with waxing and waning orientation. He is awaiting [facility]/psych facility placement. 01/28/2020-somewhat agitated today and requiring a sitter. PRN medications are available. Hyponatremia due to SIADH: resolved with NaCl 1 g tablet daily. Likely due to medication effect (antipsychotics and Depakote are both known to cause SIADH). - liberalize salt intake 01/28/2020-serum sodium now 134. Continue current treatment plan. BLANCA: Improving. Was due to dehydration as a result of strict fluid restriction. We have been unable to give IVF as patient is refusing PIV placement on multiple attempts, getting agitated when we try to place PIV. He no longer has urinary obstruction (he had PVR of less than 300 mL on multiple bladder scans after removal of Hess catheter). - liberalize oral fluid intake to improve hydration - repeat BMP in AM - hold ACEI/ARB therapy - avoid nephrotoxins - renally dose medications 01/28/2020-possibly getting dehydrated again. BUN and creatinine have increased. Will recheck in a.m. before altering treatment plan. Essential Hypertension: controlled - continue cardizem and Imdur Acute urinary retention: Resolved. Removed Hess on 01/21 and patient passed voiding trial. - continue Flomax/Proscar DVT ppx: heparin Dispo: behaviors are well controlled on current medication regimen. He is awaiting placement in [facility]/psych facility. SW following. 01/29/2020- Hyponatremia-serum sodium appears to be holding steady at 133. It has been between 130 and 136 over the last several blood tests. Acute kidney injury-BUN and creatinine are slightly better. The patient may need IV fluid. We will continue to monitor intake and output. No IV fluids as yet. Schizophrenia-continue current medication regimen. It seems to be working quite well. Awaiting placement as patient unable to live independently. 01/30/2020 Hyponatremia-patient has been consistently between 130 and 135. Continue to monitor. Not acutely symptomatic. Acute kidney injury-the patient admits to consuming approximately 1 to 1/2 L daily. I explained that we could avoid IV fluid if he achieves 2 L of fluid daily. He does state that he likes coffee. I explained that coffee has a diuretic effect and that this should not count towards his total fluid consumption. We will recheck his BUN and creatinine. With adequate fluid intake this should improve and avoid the need for IV fluids. Schizophrenia-on his current regimen the patient in general does very well. He will occasionally get upset but he typically redirects quite easily. He in fact carries on conversations with the people on the floor and will walk up and down the khan. No changes in the treatment plan at this time. Hypertension-continue current medication regimen. Blood pressures remain in an acceptable range. - Time Time Spent with patient: 15-24 minutes Medications reviewed and adjusted accordingly: Yes Anticipated Discharge Disposition: [facility] Anticipated Discharge Timeframe: when bed available
[2020-01-30] MEDS: TAMSULOSIN HCL 0.4 MG CAP.SR.24H PO SCH (17:26)
[2020-01-30] MEDS: LISINOPRIL 5 MG TABLET PO SCH (21:24)
[2020-01-31] MEDS: HEPARIN SOD (PORCINE) 5,000 UNIT/ML 1 ML VIAL SUBCUT SCH ×3 (05:15→21:59)
[2020-01-31] MEDS: PANTOPRAZOLE SODIUM 40 MG TABLET.DR PO SCH ×2 (05:16→17:54)
[2020-01-31] MEDS: FLUTICASONE/VILANTEROL 200-25 MCG/DOSE IH SCH (09:39)
[2020-01-31] MEDS: RISPERIDONE 0.25 MG TABLET PO SCH ×2 (09:39→21:58)
[2020-01-31] MEDS: LISINOPRIL 5 MG TABLET PO SCH ×2 (09:39→21:58)
[2020-01-31] MEDS: NICOTINE 21 MG/24 HR PATCH.TD24 TD SCH (09:39)
[2020-01-31] MEDS: DILTIAZEM HCL 180 MG CAPSULE.CR PO SCH (09:40)
[2020-01-31] MEDS: DIVALPROEX SODIUM 500 MG TAB.SR.24H PO SCH ×2 (09:40→21:58)
[2020-01-31] MEDS: FINASTERIDE 5 MG TABLET PO SCH (09:40)
[2020-01-31] MEDS: ISOSORBIDE MONONITRATE 30 MG TAB.ER.24H PO SCH (09:40)
[2020-01-31] MEDS: SODIUM CHLORIDE 1 GM TABLET PO SCH (09:40)
[2020-01-31 09:51] LABS: ANION GAP 11 (5-19); BLOOD UREA NITROGEN 16 mg/dL (7-20); CALCIUM 8.9 mg/dL (8.4-10.2); CARBON DIOXIDE 20 mmol/L (22-30); CHLORIDE 99 mmol/L (98-107); GLUCOSE 108 mg/dL (75-110); POTASSIUM 4.5 mmol/L (3.6-5.0)
--- NOTE | 2020-01-31 16:17 | PDOC PROGRESS REPORT ---
Subjective Progress Note for:: 01/31/20 Subjective:: The patient is resting in bed. He appears comfortable. Today he is somewhat animated. He states that he is worried about his mother. She is sick and he wants her to take care of herself because he is being taken care of in the hospital. This is an upsetting issue for him. Reason For Visit: HYPONATREMIA Physical Exam Vital Signs: Temp Pulse Resp BP Pulse Ox 98.2 F 88 18 105/67 100 01/31/20 12:17 01/31/20 12:17 01/31/20 12:17 01/31/20 12:17 01/31/20 12:17 Intake & Output 01/30/20 01/31/20 02/01/20 06:59 06:59 06:59 Intake Total 1500 1300 716 Output Total 600 Balance 1500 700 716 Weight 82.2 kg 82.8 kg 82.2 kg General appearance: PRESENT: no acute distress, cooperative, well-developed Head exam: PRESENT: atraumatic, normocephalic Ear exam: PRESENT: normal external ear exam. ABSENT: bleeding, drainage Mouth exam: PRESENT: moist, tongue midline Neck exam: ABSENT: carotid bruit, JVD, lymphadenopathy, tracheostomy Respiratory exam: PRESENT: clear to auscultation alan, symmetrical, unlabored. ABSENT: accessory muscle use, prolonged expiratory phas, rales, rhonchi, tachypnea, wheezes Cardiovascular exam: PRESENT: RRR, +S1, +S2. ABSENT: bradycardia, diastolic murmur, irregular rhythm, systolic murmur, tachycardia GI/Abdominal exam: PRESENT: normal bowel sounds, soft. ABSENT: distended, guarding, tenderness Rectal exam: PRESENT: deferred Gentrourinary exam: ABSENT: indwelling catheter Extremities exam: PRESENT: full ROM. ABSENT: calf tenderness, pedal edema Musculoskeletal exam: PRESENT: ambulatory, normal inspection. ABSENT: deformity, dislocation Neurological exam: PRESENT: alert, awake, oriented to person, oriented to situation Psychiatric exam: PRESENT: agitated - Mildly agitated as he reports being worried about his mother as described above Focused psych exam: ABSENT: delusional, paranoid, restlessness Skin exam: PRESENT: dry, normal color, warm. ABSENT: rash Results Laboratory Results: 01/21/20 09:16 01/31/20 09:10 01/31/20 09:10 Sodium 130.4 L Potassium 4.5 Chloride 99 Carbon Dioxide 20 L Anion Gap 11 BUN 16 Creatinine 1.36 H Est GFR ( Amer) > 60 Glucose 108 Calcium 8.9 12/25/19 12/25/19 12/25/19 13:39 13:39 13:39 Creatine Kinase 176 H Cancelled Troponin I 0.068 NT-Pro-B Natriuret Pep 12/25/19 12/26/19 21:27 05:40 Creatine Kinase Troponin I 0.127 0.096 NT-Pro-B Natriuret Pep 818 H Impressions: Chest X-Ray 12/29/19 07:00 IMPRESSION: NO ACUTE RADIOGRAPHIC FINDING IN THE CHEST. Head CT 01/19/20 00:00 IMPRESSION: MILD CHRONIC CHANGES OF ATROPHY AND MICROVASCULAR ISCHEMIA. NO ACUTE PROCESS. EVIDENCE OF ACUTE STROKE: NO. Assessment and Plan - Diagnosis (1) Acute metabolic encephalopathy Is this a current diagnosis for this admission?: Yes (2) Acute urinary retention Is this a current diagnosis for this admission?: Yes (3) Dehydration Is this a current diagnosis for this admission?: Yes (4) Hyponatremia Is this a current diagnosis for this admission?: Yes (5) Schizophrenia Qualifiers: Schizophrenia type: unspecified Qualified Code(s): F20.9 - Schizophrenia, unspecified Is this a current diagnosis for this admission?: Yes (6) Primary polydipsia Is this a current diagnosis for this admission?: Yes (7) Acute kidney injury Is this a current diagnosis for this admission?: Yes (8) Pneumonia Qualifiers: Pneumonia type: due to unspecified organism Laterality: left Lung locat ion: lower lobe of lung Qualified Code(s): J18.9 - Pneumonia, unspecified organism Is this a current diagnosis for this admission?: Yes (9) Seizure Is this a current diagnosis for this admission?: Yes (10) Hypertension Is this a current diagnosis for this admission?: No (11) Tobacco abuse Is this a current diagnosis for this admission?: Yes (12) Abdominal pain Qualifiers: Abdominal location: epigastric Qualified Code(s): R10.13 - Epigastric pain Is this a current diagnosis for this admission?: Yes - Plan Summary Summary: Mr. Nathan Joy is a 59 year old man with PMH of HTN, HLD, vascular dementia, and schizophrenia c/b SIADH with resultant chronic hyponatremia who presented to the ED on 12/25/2019 after escaping from [facility] and being found wa ndering outside. He was found to be lethargic. Initial labs were concerning for severe hyponatremia, sodium 116. There was concern for possible "seizure like activity" in the ED. Nephrology was consulted and recommended giving 3% hypertonic saline due to acute mental status changes associated with severe hyponatremia. Psychiatry was consulted and made medication recommendations. Hospital course has been prolonged due to the fact that he is awaiting [facility]/psych placement. Acute metabolic encephalopathy: multifactorial due to acute on chronic hyponatremia superimposed on schizophrenia and possibly advancing vascular dementia. He now appears to be at baseline mental status, which is impulsive, with waxing and waning orientation. He is awaiting [facility]/psych facility [facility]. 01/28/2020-somewhat agitated today and requiring a sitter. PRN medications are available. Hyponatremia due to SIADH: resolved with NaCl 1 g tablet daily. Likely due to medication effect (antipsychotics and Depakote are both known to cause SIADH). - liberalize salt intake 01/28/2020-serum sodium now 134. Continue current treatment plan. BLANCA: Improving. Was due to dehydration as a result of strict fluid restriction. We have been unable to give IVF as patient is refusing PIV placement on multiple attempts, getting agitated when we try to place PIV. He no longer has urinary obstruction (he had PVR of less than 300 mL on multiple bladder scans after removal of Hess catheter). - liberalize oral fluid intake to improve hydration - repeat BMP in AM - hold ACEI/ARB therapy - avoid nephrotoxins - renally dose medications 01/28/2020-possibly getting dehydrated again. BUN and creatinine have increased. Will recheck in a.m. before altering treatment plan. Essential Hypertension: controlled - continue cardizem and Imdur Acute urinary retention: Resolved. Removed Hess on 01/21 and patient passed voiding trial. - continue Flomax/Proscar DVT ppx: heparin Dispo: behaviors are well controlled on current medication regimen. He is awaiting placement in [facility]/psych facility. SW following. 01/29/2020- Hyponatremia-serum sodium appears to be holding steady at 133. It has been between 130 and 136 over the last several blood tests. Acute kidney injury-BUN and creatinine are slightly better. The patient may need IV fluid. We will continue to monitor intake and output. No IV fluids as yet. Schizophrenia-continue current medication regimen. It seems to be working quite well. Awaiting placement as patient unable to live independently. 01/30/2020 Hyponatremia-patient has been consistently between 130 and 135. Continue to monitor. Not acutely symptomatic. Acute kidney injury-the patient admits to consuming approximately 1 to 1/2 L daily. I explained that we could avoid IV fluid if he achieves 2 L of fluid daily. He does state that he likes coffee. I explained that coffee has a diuretic effect and that this should not count towards his total fluid consumption. We will recheck his BUN and creatinine. With adequate fluid intake this should improve and avoid the need for IV fluids. Schizophrenia-on his current regimen the patient in general does very well. He will occasionally get upset but he typically redirects quite easily. He in fact carries on conversations with the people on the floor and will walk up and down the khan. No changes in the treatment plan at this time. Hypertension-continue current medication regimen. Blood pressures remain in an acceptable range. 01/31/2020 Hyponatremia is stable and mild. Trying to avoid drawing blood every day. Nursing reports that he is making an effort to drink more liquids. He was agitated this morning. I do know that his mother is elderly. He reports that his mother is sick. He is upset because he is trying to tell his mother to take care of herself since he is in the hospital and being taken care of. This is not unreasonable if in fact his mother is sick. I know she is quite elderly and so this is certainly a possibility. Hypertension-continue current treatment - Time Time Spent with patient: Less than 15 minutes Medications reviewed and adjusted accordingly: Yes Anticipated Discharge Disposition: [facility] Anticipated Discharge Timeframe: when bed available
[2020-01-31] MEDS: TAMSULOSIN HCL 0.4 MG CAP.SR.24H PO SCH (17:54)
[2020-02-01] MEDS: PANTOPRAZOLE SODIUM 40 MG TABLET.DR PO SCH ×2 (06:01→18:07)
[2020-02-01] MEDS: HEPARIN SOD (PORCINE) 5,000 UNIT/ML 1 ML VIAL SUBCUT SCH ×3 (06:01→21:52)
--- NOTE | 2020-02-01 09:54 | PDOC PROGRESS REPORT ---
Subjective Progress Note for:: 02/01/20 Subjective:: Just waking up. No current complaints. Resting comfortably. Reason For Visit: HYPONATREMIA Physical Exam Vital Signs: Temp Pulse Resp BP Pulse Ox 99.0 F 92 20 145/88 H 98 02/01/20 07:43 02/01/20 07:43 02/01/20 07:43 02/01/20 07:43 02/01/20 07:43 Intake & Output 01/31/20 02/01/20 02/02/20 06:59 06:59 06:59 Intake Total 1300 956 Output Total 600 Balance 700 956 Weight 82.8 kg 82.2 kg General appearance: PRESENT: no acute distress, cooperative, well-developed Head exam: PRESENT: atraumatic, normocephalic Respiratory exam: PRESENT: clear to auscultation alan, symmetrical, unlabored. ABSENT: rales, rhonchi, tachypnea, wheezes Cardiovascular exam: PRESENT: RRR, +S1, +S2. ABSENT: bradycardia, diastolic murmur, irregular rhythm, systolic murmur, tachycardia GI/Abdominal exam: PRESENT: normal bowel sounds, soft. ABSENT: distended, guarding, tenderness Rectal exam: PRESENT: deferred Gentrourinary exam: ABSENT: indwelling catheter Musculoskeletal exam: PRESENT: ambulatory, normal inspection. ABSENT: deformity, dislocation Neurological exam: PRESENT: awake, oriented to person. ABSENT: alert - Just waking up Psychiatric exam: PRESENT: appropriate affect. ABSENT: agitated, anxious Results Laboratory Results: 01/21/20 09:16 01/31/20 09:10 01/31/20 09:10 Sodium 130.4 L Potassium 4.5 Chloride 99 Carbon Dioxide 20 L Anion Gap 11 BUN 16 Creatinine 1.36 H Est GFR ( Amer) > 60 Glucose 108 Calcium 8.9 12/25/19 12/25/19 12/25/19 13:39 13:39 13:39 Creatine Kinase 176 H Cancelled Troponin I 0.068 NT-Pro-B Natriuret Pep 12/25/19 12/26/19 21:27 05:40 Creatine Kinase Troponin I 0.127 0.096 NT-Pro-B Natriuret Pep 818 H Impressions: Chest X-Ray 12/29/19 07:00 IMPRESSION: NO ACUTE RADIOGRAPHIC FINDING IN THE CHEST. Head CT 01/19/20 00:00 IMPRESSION: MILD CHRONIC CHANGES OF ATROPHY AND MICROVASCULAR ISCHEMIA. NO ACUTE PROCESS. EVIDENCE OF ACUTE STROKE: NO. Assessment and Plan - Diagnosis (1) Acute metabolic encephalopathy Is this a current diagnosis for this admission?: Yes (2) Acute urinary retention Is this a current diagnosis for this admission?: Yes (3) Dehydration Is this a current diagnosis for this admission?: Yes (4) Hyponatremia Is this a current diagnosis for this admission?: Yes (5) Schizophrenia Qualifiers: Schizophrenia type: unspecified Qualified Code(s): F20.9 - Schizophrenia, unspecified Is this a current diagnosis for this admission?: Yes (6) Primary polydipsia Is this a current diagnosis for this admission?: Yes (7) Acute kidney injury Is this a current diagnosis for this admission?: Yes (8) Pneumonia Qualifiers: Pneumonia type: due to unspecified organism Laterality: left Lung location: lower lobe of lung Qualified Code(s): J18.9 - Pneumonia, unspecified organism Is this a current diagnosis for this admission?: Yes (9) Seizure Is this a current diagnosis for this admission?: Yes (10) Hypertension Is this a current diagnosis for this admission?: No (11) Tobacco abuse Is this a current diagnosis for this admission?: Yes (12) Abdominal pain Qualifiers: Abdominal location: epigastric Qualified Code(s): R10.13 - Epigastric pain Is this a current diagnosis for this admission?: Yes - Plan Summary Summary: Mr. Nathan Joy is a 59 year old man with PMH of HTN, HLD, vascular dementia, and schizophrenia c/b SIADH with resultant chronic hyponatremia who presented to the ED on 12/25/2019 after escaping from [facility] and being found wandering outside. He was found to be lethargic. Initial labs were concerning for severe hyponatremia, sodium 116. There was concern for possible "seizure like activity" in the ED. Nephrology was consulted and recommended giving 3% hypertonic saline due to acute mental status changes associated with severe hyponatremia. Psychiatry was consulted and made medication recommendations. Hospital course has been prolonged due to the fact that he is awaiting [facility]av[facility]/psych placement. Acute metabolic encephalopathy: multifactorial due to acute on chronic hyponatremia superimposed on schizophrenia and possibly advancing vascular demen tia. He now appears to be at baseline mental status, which is impulsive, with waxing and waning orientation. He is awaiting [facility]avio/psych facility placement. 01/28/2020-somewhat agitated today and requiring a sitter. PRN medications are available. Hyponatremia due to SIADH: resolved with NaCl 1 g tablet daily. Likely due to medication effect (antipsychotics and Depakote are both known to cause SIADH). - liberalize salt intake 01/28/2020-serum sodium now 134. Continue current treatment plan. BLANCA: Improving. Was due to dehydration as a result of strict fluid restriction. We have been unable to give IVF as patient is refusing PIV placement on multiple attempts, getting agitated when we try to place PIV. He no longer has urinary obstruction (he had PVR of less than 300 mL on multiple bladder scans after removal of Hess catheter). - liberalize oral fluid intake to improve hydration - repeat BMP in AM - hold ACEI/ARB therapy - avoid nephrotoxins - renally dose medications 01/28/2020-possibly getting dehydrated again. BUN and creatinine have increased. Will recheck in a.m. before altering treatment plan. Essential Hypertension: controlled - continue cardizem and Imdur Acute urinary retention: Resolved. Removed Hess on 01/21 and patient passed voiding trial. - continue Flomax/Proscar DVT ppx: heparin Dispo: behaviors are well controlled on current medication regimen. He is awaiting placement in octav[facility]/psych facility. SW following. 01/29/2020- Hyponatremia-serum sodium appears to be holding steady at 133. It has been b etween 130 and 136 over the last several blood tests. Acute kidney injury-BUN and creatinine are slightly better. The patient may need IV fluid. We will continue to monitor intake and output. No IV fluids as yet. Schizophrenia-continue current medication regimen. It seems to be working quite well. Awaiting placement as patient unable to live independently. 01/30/2020 Hyponatremia-patient has been consistently between 130 and 135. Continue to monitor. Not acutely symptomatic. Acute kidney injury-the patient admits to consuming approximately 1 to 1/2 L daily. I explained that we could avoid IV fluid if he achieves 2 L of fluid daily. He does state that he likes coffee. I explained that coffee has a diuretic effect and that this should not count towards his total fluid consumption. We will recheck his BUN and creatinine. With adequate fluid intake this should improve and avoid the need for IV fluids. Schizophrenia-on his current regimen the patient in general does very well. He will occasionally get upset but he typically redirects quite easily. He in fact carries on conversations with the people on the floor and will walk up and down the khan. No changes in the treatment plan at this time. Hypertension-continue current medication regimen. Blood pressures remain in an acceptable range. 01/31/2020 Hyponatremia is stable and mild. Trying to avoid drawing blood every day. Nursing reports that he is making an effort to drink more liquids. He was agitated this morning. I do know that his mother is elderly. He reports that his mother is sick. He is upset because he is trying to tell his mother to take care of herself since he is in the hospital and being taken care of. This is not unreasonable if in fact his mother is sick. I know she is quite elderly and so this is certainly a possibility. Hypertension-continue current treatment 02/01/2020 No significant changes from yesterday. Patient is quite calm and resting comfortably in bed. No changes in the current treatment plan regarding with regard to all of the diagnoses listed. - Time Time Spent with patient: Less than 15 minutes Medications reviewed and adjusted accordingly: Yes Anticipated Discharge Disposition: [facility] Anticipated Discharge Timeframe: when bed available
[2020-02-01] MEDS: DILTIAZEM HCL 180 MG CAPSULE.CR PO SCH (10:58)
[2020-02-01] MEDS: LISINOPRIL 5 MG TABLET PO SCH ×2 (10:58→21:52)
[2020-02-01] MEDS: RISPERIDONE 0.25 MG TABLET PO SCH ×2 (10:59→21:52)
[2020-02-01] MEDS: SODIUM CHLORIDE 1 GM TABLET PO SCH (10:59)
[2020-02-01] MEDS: ISOSORBIDE MONONITRATE 30 MG TAB.ER.24H PO SCH (10:59)
[2020-02-01] MEDS: DIVALPROEX SODIUM 500 MG TAB.SR.24H PO SCH ×2 (10:59→21:51)
[2020-02-01] MEDS: FLUTICASONE/VILANTEROL 200-25 MCG/DOSE IH SCH (11:00)
[2020-02-01] MEDS: NICOTINE 21 MG/24 HR PATCH.TD24 TD SCH (11:00)
[2020-02-01] MEDS: TAMSULOSIN HCL 0.4 MG CAP.SR.24H PO SCH (18:07)
[2020-02-01] MEDS ORDERED: FINASTERIDE 5 MG TABLET PO ONE (18:15)
[2020-02-02] MEDS: PANTOPRAZOLE SODIUM 40 MG TABLET.DR PO SCH ×2 (05:07→17:24)
[2020-02-02] MEDS: HEPARIN SOD (PORCINE) 5,000 UNIT/ML 1 ML VIAL SUBCUT SCH ×3 (05:07→21:43)
[2020-02-02] MEDS: LISINOPRIL 5 MG TABLET PO SCH ×2 (09:21→21:40)
[2020-02-02] MEDS: SODIUM CHLORIDE 1 GM TABLET PO SCH (09:21)
[2020-02-02] MEDS: ISOSORBIDE MONONITRATE 30 MG TAB.ER.24H PO SCH (09:21)
[2020-02-02] MEDS: FLUTICASONE/VILANTEROL 200-25 MCG/DOSE IH SCH (09:21)
[2020-02-02] MEDS: NICOTINE 21 MG/24 HR PATCH.TD24 TD SCH (09:21)
[2020-02-02] MEDS: DIVALPROEX SODIUM 500 MG TAB.SR.24H PO SCH ×2 (09:21→21:40)
[2020-02-02] MEDS: RISPERIDONE 0.25 MG TABLET PO SCH ×2 (09:22→21:40)
[2020-02-02] MEDS: DILTIAZEM HCL 180 MG CAPSULE.CR PO SCH (11:29)
--- NOTE | 2020-02-02 12:37 | PDOC PROGRESS REPORT ---
Subjective Progress Note for:: 02/02/20 Subjective:: Resting in bed. He did ask me about voting since he is in the hospital. Otherwise no complaints. Reason For Visit: HYPONATREMIA Physical Exam Vital Signs: Temp Pulse Resp BP Pulse Ox 98.2 F 77 17 121/91 H 99 02/02/20 11:14 02/02/20 11:14 02/02/20 11:14 02/02/20 11:14 02/02/20 11:14 Intake & Output 02/01/20 02/02/20 02/03/20 06:59 06:59 06:59 Intake Total 956 1400 420 Balance 956 1400 420 Weight 82.2 kg 82.2 kg General appearance: PRESENT: cooperative, mild distress - Just woke up. Verbalized that he is not happy watching the news., well-developed Head exam: PRESENT: atraumatic, normocephalic Ear exam: PRESENT: normal external ear exam. ABSENT: bleeding, drainage Mouth exam: PRESENT: moist, tongue midline Respiratory exam: PRESENT: clear to auscultation alan, symmetrical, unlabored. ABSENT: prolonged expiratory phas, rales, rhonchi, tachypnea, wheezes Cardiovascular exam: PRESENT: RRR, +S1, +S2. ABSENT: bradycardia, diastolic murmur, irregular rhythm, systolic murmur, tachycardia GI/Abdominal exam: PRESENT: normal bowel sounds, soft. ABSENT: distended, guarding, tenderness Rectal exam: PRESENT: deferred Gentrourinary exam: ABSENT: indwelling catheter Extremities exam: ABSENT: pedal edema Musculoskeletal exam: PRESENT: ambulatory, normal inspection. ABSENT: deformity, dislocation Neurological exam: PRESENT: alert, awake, oriented to person, oriented to place, oriented to situation Psychiatric exam: PRESENT: anxious. ABSENT: agitated Focused psych exam: ABSENT: delusional, paranoid, restlessness Skin exam: PRESENT: dry, normal color, warm. ABSENT: rash Results Laboratory Results: 01/21/20 09:16 01/31/20 09:10 12/25/19 12/25/19 12/25/19 13:39 13:39 13:39 Creatine Kinase 176 H Cancelled Troponin I 0.068 NT-Pro-B Natriuret Pep 12/25/19 12/26/19 21:27 05:40 Creatine Kinase Troponin I 0.127 0.096 NT-Pro-B Natriuret Pep 818 H Impressions: Chest X-Ray 12/29/19 07:00 IMPRESSION: NO ACUTE RADIOGRAPHIC FINDING IN THE CHEST. Head CT 01/19/20 00:00 IMPRESSION: MILD CHRONIC CHANGES OF ATROPHY AND MICROVASCULAR ISCHEMIA. NO ACUTE PROCESS. EVIDENCE OF ACUTE STROKE: NO. Assessment and Plan - Diagnosis (1) Acute metabolic encephalopathy Is this a current diagnosis for this admission?: Yes (2) Acute urinary retention Is this a current diagnosis for this admission?: Yes (3) Dehydration Is this a current diagnosis for this admission?: Yes (4) Hyponatremia Is this a current diagnosis for this admission?: Yes (5) Schizophrenia Qualifiers: Schizophrenia type: unspecified Qualified Code(s): F20.9 - Schizophrenia, unspecified Is this a current diagnosis for this admission?: Yes (6) Primary polydipsia Is this a current diagnosis for this admission?: Yes (7) Acute kidney injury Is this a current diagnosis for this admission?: Yes (8) Pneumonia Qualifiers: Pneumonia type: due to unspecified organism Laterality: left Lung location: lower lobe of lung Qualified Code(s): J18.9 - Pneumonia, unspecified organism Is this a current diagnosis for this admission?: Yes (9) Seizure Is this a current diagnosis for this admission?: Yes (10) Hypertension Is this a current diagnosis for this admission?: No (11) Tobacco abuse Is this a current diagnosis for this admission?: Yes (12) Abdominal pain Qualifiers: Abdominal location: epigastric Qualified Code(s): R10.13 - Epigastric pain Is this a current diagnosis for this admission?: Yes - Plan Summary Summary: Mr. Nathan Joy is a 59 year old man with PMH of HTN, HLD, vascular dementia, and schizophrenia c/b SIADH with resultant chronic hyponatremia who presented to the ED on 12/25/2019 after escaping from [facility] and being found wandering outside. He was found to be lethargic. Initial labs were concerning for severe hyponatremia, sodium 116. There was concern for possible "seizure like activity" in the ED. Nephrology was consulted and recommended giving 3% hypertonic saline due to acute mental status changes associated with severe hyponatremia. Psychiatry was consulted and made medication recommendations. Hospital course has been prolonged due to the fact that he is awaiting [facility]avio/psych placement. Acute metabolic encephalopathy: multifactorial due to acute on chronic hy ponatremia superimposed on schizophrenia and possibly advancing vascular dementia. He now appears to be at baseline mental status, which is impulsive, with waxing and waning orientation. He is awaiting octavio/psych facility placement. 01/28/2020-somewhat agitated today and requiring a sitter. PRN medications are available. Hyponatremia due to SIADH: resolved with NaCl 1 g tablet daily. Likely due to medication effect (antipsychotics and Depakote are both known to cause SIADH). - liberalize salt intake 01/28/2020-serum sodium now 134. Continue current treatment plan. BLANCA: Improving. Was due to dehydration as a result of strict fluid restriction. We have been unable to give IVF as patient is refusing PIV placement on multiple attempts, getting agitated when we try to place PIV. He no longer has urinary obstruction (he had PVR of less than 300 mL on multiple bladder scans after removal of Hess catheter). - liberalize oral fluid intake to improve hydration - repeat BMP in AM - hold ACEI/ARB therapy - avoid nephrotoxins - renally dose medications 01/28/2020-possibly getting dehydrated again. BUN and creatinine have increased. Will recheck in a.m. before altering treatment plan. Essential Hypertension: controlled - continue cardizem and Imdur Acute urinary retention: Resolved. Removed Hess on 01/21 and patient passed voiding trial. - continue Flomax/Proscar DVT ppx: heparin Dispo: behaviors are well controlled on current medication regimen. He is awaiting placement in [facility]/psych facility. SW following. 01/29/2020- Hyponatremia-serum sodium appears to be holding steady at 133. It has been between 130 and 136 over the last several blood tests. Acute kidney injury-BUN and creatinine are slightly better. The patient may need IV fluid. We will continue to monitor intake and output. No IV fluids as yet. Schizophrenia-continue current medication regimen. It seems to be working quite well. Awaiting placement as patient unable to live independently. 01/30/2020 Hyponatremia-patient has been consistently between 130 and 135. Continue to monitor. Not acutely symptomatic. Acute kidney injury-the patient admits to consuming approximately 1 to 1/2 L daily. I explained that we could avoid IV fluid if he achieves 2 L of fluid daily. He does state that he likes coffee. I explained that coffee has a diure tic effect and that this should not count towards his total fluid consumption. We will recheck his BUN and creatinine. With adequate fluid intake this should improve and avoid the need for IV fluids. Schizophrenia-on his current regimen the patient in general does very well. He will occasionally get upset but he typically redirects quite easily. He in fact carries on conversations with the people on the floor and will walk up and down the khan. No changes in the treatment plan at this time. Hypertension-continue current medication regimen. Blood pressures remain in an acceptable range. 01/31/2020 Hyponatremia is stable and mild. Trying to avoid drawing blood every day. Nursing reports that he is making an effort to drink more liquids. He was agitated this morning. I do know that his mother is elderly. He reports that his mother is sick. He is upset because he is trying to tell his mother to take care of herself since he is in the hospital and being taken care of. This is not unreasonable if in fact his mother is sick. I know she is quite elderly and so this is certainly a possibility. Hypertension-continue current treatment 02/01/2020 No significant changes from yesterday. Patient is quite calm and resting comfortably in bed. No changes in the current treatment plan regarding with regard to all of the diagnoses listed. 02/02/2020 The patient just woke up. He is unhappy with watching the news. He asked me to change the channel. He also asked me about where he was going to vote since there was election news on the television. I told him I would investigate the possibilities. I did reach out to discharge planning to see if absentee pellets are brought in by family for patients wish to vote. Serum sodium was slightly lower on the . We will likely recheck labs tomorrow serum creatinine was rising slightly and would like to monitor for volume status as he did need IV fluids earlier in this hospitalization. He did have an acute kidney injury. I have been encouraging him to take 2 L of fluids daily at the minimum. After my last discussion he made a significant effort but I do not know if it is consistent every day. Continue current plan. Awaiting approval for placement. Of note, the patient has not required a sitter for almost 2 days. He has not been yelling or significantly agitated. - Time Time Spent with patient: 15-24 minutes Medications reviewed and adjusted accordingly: Yes Anticipated Discharge Disposition: [facility] Anticipated Discharge Timeframe: when bed available
[2020-02-02] MEDS: FINASTERIDE 5 MG TABLET PO SCH (17:24)
[2020-02-02] MEDS: TAMSULOSIN HCL 0.4 MG CAP.SR.24H PO SCH (17:24)
[2020-02-03] MEDS: HEPARIN SOD (PORCINE) 5,000 UNIT/ML 1 ML VIAL SUBCUT SCH ×3 (06:35→22:06)
[2020-02-03] MEDS: PANTOPRAZOLE SODIUM 40 MG TABLET.DR PO SCH ×2 (06:35→17:32)
[2020-02-03 08:37] LABS: ALBUMIN 3.7 g/dL (3.5-5.0); ANION GAP 12 (5-19); BLOOD UREA NITROGEN 18 mg/dL (7-20); CARBON DIOXIDE 22 mmol/L (22-30); CHLORIDE 99 mmol/L (98-107); GLUCOSE 130 mg/dL (75-110); PHOSPHORUS 4.1 mg/dL (2.5-4.5); POTASSIUM 4.4 mmol/L (3.6-5.0)
[2020-02-03 08:38] LABS: CALCIUM 9.4 mg/dL (8.4-10.2)
[2020-02-03] MEDS: RISPERIDONE 0.25 MG TABLET PO SCH ×2 (10:07→22:10)
[2020-02-03] MEDS: ISOSORBIDE MONONITRATE 30 MG TAB.ER.24H PO SCH (10:07)
[2020-02-03] MEDS: DILTIAZEM HCL 180 MG CAPSULE.CR PO SCH (10:07)
[2020-02-03] MEDS: SODIUM CHLORIDE 1 GM TABLET PO SCH (10:08)
[2020-02-03] MEDS: DIVALPROEX SODIUM 500 MG TAB.SR.24H PO SCH ×2 (10:08→22:03)
[2020-02-03] MEDS: LISINOPRIL 5 MG TABLET PO SCH ×2 (10:08→22:03)
[2020-02-03] MEDS: NICOTINE 21 MG/24 HR PATCH.TD24 TD SCH (10:08)
[2020-02-03] MEDS: FLUTICASONE/VILANTEROL 200-25 MCG/DOSE IH SCH (10:09)
[2020-02-03] MEDS ORDERED: PANTOT AC/MIN OIL/PET HY-PHL OINT 50 GM TOP PRN (12:48)
[2020-02-03] MEDS: TAMSULOSIN HCL 0.4 MG CAP.SR.24H PO SCH (17:32)
[2020-02-03] MEDS: FINASTERIDE 5 MG TABLET PO SCH (17:32)
[2020-02-03] MEDS: DIAZEPAM 5 MG TABLET PO PRN (18:01)
--- NOTE | 2020-02-03 20:52 | PDOC PROGRESS REPORT ---
Subjective Progress Note for:: 02/03/20 Subjective:: Patient sitting on the edge of the bed today. He seems somewhat disgruntled. He is unable to tell me why. Reason For Visit: HYPONATREMIA Physical Exam Vital Signs: Temp Pulse Resp BP Pulse Ox 97.2 F 80 17 115/64 100 02/03/20 19:36 02/03/20 19:36 02/03/20 19:36 02/03/20 19:36 02/03/20 19:36 Intake & Output 02/02/20 02/03/20 02/04/20 06:59 06:59 06:59 Intake Total 1400 420 472 Balance 1400 420 472 Weight 82.2 kg 82.2 kg General appearance: PRESENT: cooperative, mild distress, well-developed Head exam: PRESENT: atraumatic, normocephalic Ear exam: PRESENT: normal external ear exam. ABSENT: bleeding, drainage Respiratory exam: PRESENT: clear to auscultation alan, symmetrical, unlabored. ABSENT: prolonged expiratory phas, rales, rhonchi, tachypnea, wheezes Cardiovascular exam: PRESENT: RRR, +S1, +S2. ABSENT: bradycardia, diastolic murmur, irregular rhythm, systolic murmur, tachycardia GI/Abdominal exam: PRESENT: normal bowel sounds, soft. ABSENT: distended, guarding, tenderness Rectal exam: PRESENT: deferred Gentrourinary exam: ABSENT: indwelling catheter Extremities exam: ABSENT: pedal edema Musculoskeletal exam: PRESENT: ambulatory, normal inspection. ABSENT: d eformity, dislocation Neurological exam: PRESENT: alert, awake, oriented to person, oriented to place Psychiatric exam: PRESENT: flat affect. ABSENT: agitated, anxious Focused psych exam: ABSENT: delusional, paranoid, restlessness Skin exam: PRESENT: dry, normal color, warm. ABSENT: rash Results Laboratory Results: 01/21/20 09:16 02/03/20 08:03 02/03/20 08:03 Sodium 132.8 L Potassium 4.4 Chloride 99 Carbon Dioxide 22 Anion Gap 12 BUN 18 Creatinine 1.28 H Est GFR ( Amer) > 60 Glucose 130 H Calcium 9.4 Phosphorus 4.1 Albumin 3.7 12/25/19 12/25/19 12/25/19 13:39 13:39 13:39 Creatine Kinase 176 H Cancelled Troponin I 0.068 NT-Pro-B Natriuret Pep 12/25/19 12/26/19 21:27 05:40 Creatine Kinase Troponin I 0.127 0.096 NT-Pro-B Natriuret Pep 818 H Impressions: Chest X-Ray 12/29/19 07:00 IMPRESSION: NO ACUTE RADIOGRAPHIC FINDING IN THE CHEST. Head CT 01/19/20 00:00 IMPRESSION: MILD CHRONIC CHANGES OF ATROPHY AND MICROVASCULAR ISCHEMIA. NO ACUTE PROCESS. EVIDENCE OF ACUTE STROKE: NO. Assessment and Plan - Diagnosis (1) Acute metabolic encephalopathy Is this a current diagnosis for this admission?: Yes (2) Acute urinary retention Is this a current diagnosis for this admission?: Yes (3) Dehydration Is this a current diagnosis for this admission?: Yes (4) Hyponatremia Is this a current diagnosis for this admission?: Yes (5) Schizophrenia Qualifiers: Schizophrenia type: unspecified Qualified Code(s): F20.9 - Schizophrenia, unspecified Is this a current diagnosis for this admission?: Yes (6) Primary polydipsia Is this a current diagnosis for this admission?: Yes (7) Acute kidney injury Is this a current diagnosis for this admission?: Yes (8) Pneumonia Qualifiers: Pneumonia type: due to unspecified organism Laterality: left Lung location: lower lobe of lung Qualified Code(s): J18.9 - Pneumonia, unspecified organism Is this a current diagnosis for this admission?: Yes (9) Seizure Is this a current diagnosis for this admission?: Yes (10) Hypertension Is this a current diagnosis for this admission?: No (11) Tobacco abuse Is this a current diagnosis for this admission?: Yes (12) Abdominal pain Qualifiers: Abdominal location: epigastric Qualified Code(s): R10.13 - Epigastric pain Is this a current diagnosis for this admission?: Yes - Plan Summary Summary: Mr. Nathan Joy is a 59 year old man with PMH of HTN, HLD, vascular dementia, and schizophrenia c/b SIADH with resultant chronic hyponatremia who presented to the ED on 12/25/2019 after escaping from [facility] and being found wandering outside. He was found to be lethargic. Initial labs were concerning for severe hyponatremia, sodium 116. There was concern for possible "seizure like activity" in the ED. Nephrology was consulted and recommended giving 3% hypertonic saline due to acute mental status changes associated with severe hyponatremia. Psychiatry was consulted and made medication recommendations. Hospital course has been prolonged due to the fact that he is awaiting [facility]av[facility]/psych placement. Acute metabolic encephalopathy: multifactorial due to acute on chronic hyponatremia superimposed on schizophrenia and possibly advancing vascular dementia. He now appears to be at baseline mental status, which is impulsive, with waxing and waning orientation. He is awaiting [facility]avio/psych facility placement. 01/28/2020-somewhat agitated today and requiring a sitter. PRN medications are available. Hyponatremia due to SIADH: resolved with NaCl 1 g tablet daily. Likely due to medication effect (antipsychotics and Depakote are both known to cause SIADH). - liberalize salt intake 01/28/2020-serum sodium now 134. Continue current treatment plan. BLANCA: Improving. Was due to dehydration as a result of strict fluid restriction. We have been unable to give IVF as patient is refusing PIV placement on multiple attempts, getting agitated when we try to place PIV. He no longer has urinary obstruction (he had PVR of less than 300 mL on multiple bladder scans after removal of Hess catheter). - liberalize oral fluid intake to improve hydration - repeat BMP in AM - hold ACEI/ARB therapy - avoid nephrotoxins - renally dose medications 01/28/2020-possibly getting dehydrated again. BUN and creatinine have increased. Will recheck in a.m. before altering treatment plan. Essential Hypertension: controlled - continue cardizem and Imdur Acute urinary retention: Resolved. Removed Hess on 01/21 and patient passed voiding trial. - continue Flomax/Proscar DVT ppx: heparin Dispo: behaviors are well controlled on current medication regimen. He is awaiting placement in octavio/psych facility. SW following. 01/29/2020- Hyponatremia-serum sodium appears to be holding steady at 133. It has been between 130 and 136 over the last several blood tests. Acute kidney injury-BUN and creatinine are slightly better. The patient may need IV fluid. We will continue to monitor intake and output. No IV fluids as yet. Schizophrenia-continue current medication regimen. It seems to be working quite well. Awaiting placement as patient unable to live independently. 01/30/2020 Hyponatremia-patient has been consistently between 130 and 135. Continue to monitor. Not acutely symptomatic. Acute kidney injury-the patient admits to consuming approximately 1 to 1/2 L daily. I explained that we could avoid IV fluid if he achieves 2 L of fluid daily. He does state that he likes coffee. I explained that coffee has a diuretic effect and that this should not count towards his total fluid consu mption. We will recheck his BUN and creatinine. With adequate fluid intake this should improve and avoid the need for IV fluids. Schizophrenia-on his current regimen the patient in general does very well. He will occasionally get upset but he typically redirects quite easily. He in fact carries on conversations with the people on the floor and will walk up and down the khan. No changes in the treatment plan at this time. Hypertension-continue current medication regimen. Blood pressures remain in an acceptable range. 01/31/2020 Hyponatremia is stable and mild. Trying to avoid drawing blood every day. Nursing reports that he is making an effort to drink more liquids. He was agitated this morning. I do know that his mother is elderly. He reports that his mother is sick. He is upset because he is trying to tell his mother to take care of herself since he is in the hospital and being taken care of. This is not unreasonable if in fact his mother is sick. I know she is quite elderly and so this is certainly a possibility. Hypertension-continue current treatment 02/01/2020 No significant changes from yesterday. Patient is quite calm and resting comfortably in bed. No changes in the current treatment plan regarding with regard to all of the diagnoses listed. 02/02/2020 The patient just woke up. He is unhappy with watching the news. He asked me to change the channel. He also asked me about where he was going to vote since there was election news on the television. I told him I would investigate the possibilities. I did reach out to discharge planning to see if absentee pellets are brought in by family for patients wish to vote. Serum sodium was slightly lower on the . We will likely recheck labs tomorrow serum creatinine was rising slightly and would like to monitor for volume status as he did need IV fluids earlier in this hospitalization. He did have an acute kidney injury. I have been encouraging him to take 2 L of fluids daily at the minimum. After my last discussion he made a significant effort but I do not know if it is consistent every day. Continue current plan. Awaiting approval for placement. Of note, the patient has not required a sitter for almost 2 days. He has not been yelling or significantly agitated. 02/03/2020 Hyponatremia stable. Serum sodium 132.8 today. Acute kidney injury-BUN is 18 creatinine is better at 1.28. Patient needs to be encouraged to drink more water on a daily basis. Acute encephalopathy resolved Hypertension stable on current regimen Awaiting appropriate placement - Time Time Spent with patient: Less than 15 minutes Medications reviewed and adjusted accordingly: Yes Anticipated Discharge Disposition: Detention Care Facility Anticipated Discharge Timeframe: when bed available
[2020-02-04] MEDS: HEPARIN SOD (PORCINE) 5,000 UNIT/ML 1 ML VIAL SUBCUT SCH ×3 (05:19→22:01)
[2020-02-04] MEDS: PANTOPRAZOLE SODIUM 40 MG TABLET.DR PO SCH ×2 (05:19→18:48)
[2020-02-04] MEDS: FLUTICASONE/VILANTEROL 200-25 MCG/DOSE IH SCH ×2 (10:35→12:35)
[2020-02-04] MEDS: ISOSORBIDE MONONITRATE 30 MG TAB.ER.24H PO SCH (12:31)
[2020-02-04] MEDS: RISPERIDONE 0.25 MG TABLET PO SCH ×2 (12:31→22:08)
[2020-02-04] MEDS: LISINOPRIL 5 MG TABLET PO SCH ×2 (12:31→22:09)
[2020-02-04] MEDS: NICOTINE 21 MG/24 HR PATCH.TD24 TD SCH (12:33)
[2020-02-04] MEDS: DIVALPROEX SODIUM 500 MG TAB.SR.24H PO SCH ×2 (12:34→22:08)
[2020-02-04] MEDS: SODIUM CHLORIDE 1 GM TABLET PO SCH (14:52)
[2020-02-04] MEDS: DILTIAZEM HCL 180 MG CAPSULE.CR PO SCH (14:53)
[2020-02-04] MEDS: FINASTERIDE 5 MG TABLET PO SCH (18:48)
[2020-02-04] MEDS: TAMSULOSIN HCL 0.4 MG CAP.SR.24H PO SCH (18:48)
--- NOTE | 2020-02-04 19:26 | PDOC PROGRESS REPORT ---
Subjective Progress Note for:: 02/04/20 Subjective:: NAEO Reason For Visit: HYPONATREMIA Physical Exam Vital Signs: Temp Pulse Resp BP Pulse Ox 97.8 F 77 16 114/69 100 02/04/20 08:00 02/04/20 08:00 02/04/20 08:00 02/04/20 08:00 02/04/20 08:00 Intake & Output 02/03/20 02/04/20 02/05/20 06:59 06:59 06:59 Intake Total 420 472 356 Balance 420 472 356 Weight 82.2 kg 82.2 kg General appearance: PRESENT: no acute distress, cooperative Eye exam: ABSENT: scleral icterus Mouth exam: PRESENT: moist Throat exam: ABSENT: post pharyngeal erythema Neck exam: ABSENT: JVD Respiratory exam: PRESENT: clear to auscultation alan Cardiovascular exam: PRESENT: RRR GI/Abdominal exam: PRESENT: normal bowel sounds, soft Gentrourinary exam: ABSENT: indwelling catheter Extremities exam: ABSENT: pedal edema Musculoskeletal exam: PRESENT: ambulatory Neurological exam: PRESENT: alert, awake Psychiatric exam: PRESENT: flat affect Skin exam: ABSENT: rash Results Laboratory Results: 01/21/20 09:16 02/03/20 08:03 12/25/19 12/25/19 12/25/19 13:39 13:39 13:39 Creatine Kinase 176 H Cancelled Troponin I 0.068 NT-Pro-B Natriuret Pep 12/25/19 12/26/19 21:27 05:40 Creatine Kinase Troponin I 0.127 0.096 NT-Pro-B Natriuret Pep 818 H Impressions: Chest X-Ray 12/29/19 07:00 IMPRESSION: NO ACUTE RADIOGRAPHIC FINDING IN THE CHEST. Head CT 01/19/20 00:00 IMPRESSION: MILD CHRONIC CHANGES OF ATROPHY AND MICROVASCULAR ISCHEMIA. NO ACUTE PROCESS. EVIDENCE OF ACUTE STROKE: NO. Assessment and Plan - Diagnosis (1) Acute metabolic encephalopathy Is this a current diagnosis for this admission?: Yes (2) Acute urinary retention Is this a current diagnosis for this admission?: Yes (3) Dehydration Is this a current diagnosis for this admission?: Yes (4) Hyponatremia syndrome Is this a current diagnosis for this admission?: Yes (5) Schizophrenia Qualifiers: Schizophrenia type: unspecified Qualified Code(s): F20.9 - Schizophrenia, unspecified Is this a current diagnosis for this admission?: Yes (6) Primary polydipsia Is this a current diagnosis for this admission?: Yes (7) Acute kidney injury Is this a current diagnosis for this admission?: Yes - Plan Summary Summary: Mr. Nathan Joy is a 59 year old man with PMH of HTN, HLD, vascular dementia, and schizophrenia c/b SIADH with resultant chronic hyponatremia who presented to the ED on 12/25/2019 after escaping from [facility] and being found wandering outside. He was found to be lethargic. Initial labs were concerning for severe hyponatremia, sodium 116. There was concern for possible "seizure like activity" in the ED. Nephrology was consulted and recommended giving 3% hypertonic saline due to acute mental status changes associated with severe hyponatremia. Psychiatry was consulted and made medication recommendations. Hospital course has been prolonged due to the fact that he is awaiting octavio/psych placement. Acute metabolic encephalopathy: multifactorial due to acute on chronic hyp onatremia superimposed on schizophrenia and possibly advancing vascular dementia. He now appears to be at baseline mental status, which is impulsive, with waxing and waning orientation. He is awaiting octavio/psych facility placement. Hyponatremia due to SIADH: resolved with NaCl 1 g tablet daily. Likely due to medication effect (antipsychotics and Depakote are both known to cause SIADH). - liberalize salt intake BLANCA: Improving. Was due to dehydration as a result of strict fluid restriction. We have been unable to give IVF as patient is refusing PIV placement on multiple attempts, getting agitated when we try to place PIV. He no longer has urinary obstruction (he had PVR of less than 300 mL on multiple bladder scans after removal of Hess catheter). - liberalize oral fluid intake to improve hydration - repeat BMP in AM - hold ACEI/ARB therapy - avoid nephrotoxins - renally dose medications Essential Hypertension: controlled - continue cardizem and Imdur Acute urinary retention: Resolved. Removed Hess on 01/21 and patient passed voiding trial. - continue Flomax/Proscar DVT ppx: heparin Dispo: behaviors are well controlled on current medication regimen. He is awaiting placement in octavio/psych facility. SW following. - Time Time Spent with patient: 35 or more minutes Anticipated Discharge Disposition: Psych Hospital/Unit Anticipated Discharge Timeframe: within 24 hours
[2020-02-05] MEDS: PANTOPRAZOLE SODIUM 40 MG TABLET.DR PO SCH (06:33)
[2020-02-05] MEDS: HEPARIN SOD (PORCINE) 5,000 UNIT/ML 1 ML VIAL SUBCUT SCH ×2 (06:33→13:59)
[2020-02-05] MEDS: LISINOPRIL 5 MG TABLET PO SCH ×2 (10:36→22:26)
[2020-02-05] MEDS: NICOTINE 21 MG/24 HR PATCH.TD24 TD SCH (10:36)
[2020-02-05] MEDS: DILTIAZEM HCL 180 MG CAPSULE.CR PO SCH (10:36)
[2020-02-05] MEDS: FLUTICASONE/VILANTEROL 200-25 MCG/DOSE IH SCH (10:36)
[2020-02-05] MEDS: ISOSORBIDE MONONITRATE 30 MG TAB.ER.24H PO SCH (10:36)
[2020-02-05] MEDS: DIVALPROEX SODIUM 500 MG TAB.SR.24H PO SCH ×2 (10:36→22:26)
[2020-02-05] MEDS: SODIUM CHLORIDE 1 GM TABLET PO SCH (10:37)
[2020-02-05] MEDS: RISPERIDONE 0.25 MG TABLET PO SCH ×2 (10:37→22:26)
--- NOTE | 2020-02-05 17:19 | PDOC PROGRESS REPORT ---
Subjective Progress Note for:: 02/05/20 Subjective:: NAEO Reason For Visit: HYPONATREMIA Physical Exam Vital Signs: Temp Pulse Resp BP Pulse Ox 97.5 F 74 16 118/80 98 02/05/20 15:32 02/05/20 15:32 02/05/20 15:32 02/05/20 15:32 02/05/20 15:32 Intake & Output 02/04/20 02/05/20 02/06/20 06:59 06:59 06:59 Intake Total 472 356 Balance 472 356 Weight 82.2 kg 82.2 kg General appearance: PRESENT: no acute distress, cooperative Eye exam: ABSENT: scleral icterus Mouth exam: PRESENT: moist Throat exam: ABSENT: post pharyngeal erythema Neck exam: ABSENT: JVD Respiratory exam: PRESENT: clear to auscultation alan, unlabored Cardiovascular exam: PRESENT: RRR GI/Abdominal exam: PRESENT: normal bowel sounds, soft. ABSENT: tenderness Extremities exam: ABSENT: pedal edema Neurological exam: PRESENT: alert, altered, awake Psychiatric exam: PRESENT: flat affect Skin exam: ABSENT: rash Results Laboratory Results: 01/21/20 09:16 02/03/20 08:03 12/25/19 12/25/19 12/25/19 13:39 13:39 13:39 Creatine Kinase 176 H Cancelled Troponin I 0.068 NT-Pro-B Natriuret Pep 12/25/19 12/26/19 21:27 05:40 Creatine Kinase Troponin I 0.127 0.096 NT-Pro-B Natriuret Pep 818 H Impressions: Chest X-Ray 12/29/19 07:00 IMPRESSION: NO ACUTE RADIOGRAPHIC FINDING IN THE CHEST. Head CT 01/19/20 00:00 IMPRESSION: MILD CHRONIC CHANGES OF ATROPHY AND MICROVASCULAR ISCHEMIA. NO ACUTE PROCESS. EVIDENCE OF ACUTE STROKE: NO. Assessment and Plan - Diagnosis (1) Acute metabolic encephalopathy Is this a current diagnosis for this admission?: Yes (2) Acute urinary retention Is this a current diagnosis for this admission?: Yes (3) Dehydration Is this a current diagnosis for this admission?: Yes (4) Hyponatremia syndrome Is this a current diagnosis for this admission?: Yes (5) Schizophrenia Qualifiers: Schizophrenia type: unspecified Qualified Code(s): F20.9 - Schizophrenia, unspecified Is this a current diagnosis for this admission?: Yes (6) Primary polydipsia Is this a current diagnosis for this admission?: Yes (7) Acute kidney injury Is this a current diagnosis for this admission?: Yes - Plan Summary Summary: Mr. Nathan Joy is a 59 year old man with PMH of HTN, HLD, vascular dementia, and schizophrenia c/b SIADH with resultant chronic hyponatremia who presented to the ED on 12/25/2019 after escaping from [facility] and being found wandering outside. He was found to be lethargic. Initial labs were concerning for severe hyponatremia, sodium 116. There was concern for possible "seizure like activity" in the ED. Nephrology was consulted and recommended giving 3% hypertonic saline due to acute mental status changes associated with severe hyponatremia. Psychiatry was consulted and made medication recommendations. Hospital course has been prolonged due to the fact that he is awaiting octavio/psych placement. Acute metabolic encephalopathy: multifactorial due to acute on chronic hyponatre griselda superimposed on schizophrenia and possibly advancing vascular dementia. He now appears to be at baseline mental status, which is impulsive, with waxing and waning orientation. He is awaiting octavio/psych facility placement. Hyponatremia due to SIADH: resolved with NaCl 1 g tablet daily. Likely due to medication effect (antipsychotics and Depakote are both known to cause SIADH). - liberalize salt intake BLANCA: Improving. Was due to dehydration as a result of strict fluid restriction. We have been unable to give IVF as patient is refusing PIV placement on multiple attempts, getting agitated when we try to place PIV. He no longer has urinary obstruction (he had PVR of less than 300 mL on multiple bladder scans after removal of Hess catheter). - liberalize oral fluid intake to improve hydration - repeat BMP in AM - hold ACEI/ARB therapy - avoid nephrotoxins - renally dose medications Essential Hypertension: controlled - continue cardizem and Imdur Acute urinary retention: Resolved. Removed Hess on 01/21 and patient passed voiding trial. - continue Flomax/Proscar DVT ppx: heparin Dispo: behaviors are well controlled on current medication regimen. He is awaiting placement in [facility]avio/psych facility. SW following. - Time Time Spent with patient: 35 or more minutes Anticipated Discharge Disposition: Psych Hospital/Unit Anticipated Discharge Timeframe: within 24 hours
[2020-02-05] MEDS: TAMSULOSIN HCL 0.4 MG CAP.SR.24H PO SCH (18:10)
[2020-02-05] MEDS: FINASTERIDE 5 MG TABLET PO SCH (18:10)
[2020-02-06] MEDS: HEPARIN SOD (PORCINE) 5,000 UNIT/ML 1 ML VIAL SUBCUT SCH ×4 (04:22→22:13)
[2020-02-06 05:05] LABS: ANION GAP 11 (5-19); BLOOD UREA NITROGEN 20 mg/dL (7-20); CALCIUM 9.1 mg/dL (8.4-10.2); CARBON DIOXIDE 23 mmol/L (22-30); CHLORIDE 96 mmol/L (98-107); GLUCOSE 113 mg/dL (75-110); POTASSIUM 4.4 mmol/L (3.6-5.0)
[2020-02-06] MEDS: FLUTICASONE/VILANTEROL 200-25 MCG/DOSE IH SCH (11:05)
[2020-02-06] MEDS: NICOTINE 21 MG/24 HR PATCH.TD24 TD SCH (11:06)
[2020-02-06] MEDS: DIVALPROEX SODIUM 500 MG TAB.SR.24H PO SCH ×2 (11:06→22:17)
[2020-02-06] MEDS: SODIUM CHLORIDE 1 GM TABLET PO SCH (11:06)
[2020-02-06] MEDS: DILTIAZEM HCL 180 MG CAPSULE.CR PO SCH (11:07)
[2020-02-06] MEDS: LISINOPRIL 5 MG TABLET PO SCH ×2 (11:07→22:17)
[2020-02-06] MEDS: RISPERIDONE 0.25 MG TABLET PO SCH ×2 (11:07→22:17)
[2020-02-06] MEDS: ISOSORBIDE MONONITRATE 30 MG TAB.ER.24H PO SCH (11:07)
--- NOTE | 2020-02-06 16:54 | PDOC PROGRESS REPORT ---
Subjective Progress Note for:: 02/06/20 Subjective:: NAEO Reason For Visit: HYPONATREMIA Physical Exam Vital Signs: Temp Pulse Resp BP Pulse Ox 97.2 F 88 20 118/62 100 02/06/20 16:18 02/06/20 16:18 02/06/20 16:18 02/06/20 16:18 02/06/20 16:18 Intake & Output 02/05/20 02/06/20 02/07/20 06:59 06:59 06:59 Intake Total 356 640 701 Balance 356 640 701 Weight 82.2 kg 82.2 kg General appearance: PRESENT: no acute distress, cooperative Head exam: PRESENT: atraumatic Eye exam: ABSENT: scleral icterus Mouth exam: PRESENT: moist Neck exam: ABSENT: JVD Respiratory exam: PRESENT: clear to auscultation alan, unlabored Cardiovascular exam: PRESENT: RRR GI/Abdominal exam: PRESENT: normal bowel sounds, soft. ABSENT: tenderness Extremities exam: ABSENT: +1 edema Musculoskeletal exam: PRESENT: ambulatory Neurological exam: PRESENT: alert, altered, awake Psychiatric exam: PRESENT: flat affect Skin exam: ABSENT: rash Results Laboratory Results: 01/21/20 09:16 02/06/20 04:08 02/06/20 04:08 Sodium 130.2 L Potassium 4.4 Chloride 96 L Carbon Dioxide 23 Anion Gap 11 BUN 20 Creatinine 1.14 Est GFR ( Amer) > 60 Glucose 113 H Calcium 9.1 12/25/19 12/25/19 12/25/19 13:39 13:39 13:39 Creatine Kinase 176 H Cancelled Troponin I 0.068 NT-Pro-B Natriuret Pep 12/25/19 12/26/19 21:27 05:40 Creatine Kinase Troponin I 0.127 0.096 NT-Pro-B Natriuret Pep 818 H Impressions: Chest X-Ray 12/29/19 07:00 IMPRESSION: NO ACUTE RADIOGRAPHIC FINDING IN THE CHEST. Head CT 01/19/20 00:00 IMPRESSION: MILD CHRONIC CHANGES OF ATROPHY AND MICROVASCULAR ISCHEMIA. NO ACUTE PROCESS. EVIDENCE OF ACUTE STROKE: NO. Assessment and Plan - Diagnosis (1) Acute metabolic encephalopathy Is this a current diagnosis for this admission?: Yes (2) Acute urinary retention Is this a current diagnosis for this admission?: Yes (3) Dehydration Is this a current diagnosis for this admission?: Yes (4) Hyponatremia syndrome Is this a current diagnosis for this admission?: Yes (5) Schizophrenia Qualifiers: Schizophrenia type: unspecified Qualified Code(s): F20.9 - Schizophrenia, unspecified Is this a current diagnosis for this admission?: Yes (6) Primary polydipsia Is this a current diagnosis for this admission?: Yes (7) Acute kidney injury Is this a current diagnosis for this admission?: Yes - Plan Summary Summary: Mr. Nathan Joy is a 59 year old man with PMH of HTN, HLD, vascular dementia, and schizophrenia c/b SIADH with resultant chronic hyponatremia who presented to the ED on 12/25/2019 after escaping from [facility] and being found wandering outside. He was found to be lethargic. Initial labs were concerning for severe hyponatremia, sodium 116. There was concern for possible "seizure like activity" in the ED. Nephrology was consulted and recommended giving 3% hypertonic saline due to acute mental status changes associated with severe hyponatremia. Psychiatry was consulted and made medication recommendations. Hospital course has been prolonged due to the fact that he is awaiting octavio/psych placement. Acute metabolic encephalopathy: multifactorial due to acute on chronic hyponatremia superimposed on schizophrenia and possibly advancing vascular dementia. He now appears to be at baseline mental status, which is impulsive, with waxing and waning orientation. He is awaiting octavio/psych facility placement. Hyponatremia due to SIADH: resolved with NaCl 1 g tablet daily and liberalized salt intake. Likely due to medication effect (antipsychotics and Depakote are staci th known to cause SIADH). Sodium stable between 130-133 on this regimen. BLANCA: resolved. Cr has been steadily declining from 1.4-->1.3-->1.2-->1.1 today. Was due to dehydration as a result of strict fluid restriction and improved with liberalized fluid intake. We have been unable to give IVF as patient is refusing PIV placement on multiple attempts, getting agitated when we try to place PIV. He no longer has urinary obstruction (he had PVR of less than 300 mL on multiple bladder scans after removal of Hess catheter). - liberalize oral fluid intake to improve hydration - hold ACEI/ARB therapy - avoid nephrotoxins - renally dose medications Essential Hypertension: well controlled. Continue Cardizem and Imdur. Acute urinary retention: Resolved. Removed Hess on 01/21 and patient passed voiding trial. Continue Flomax/Proscar. DVT ppx: heparin Dispo: behaviors are well controlled on current medication regimen. He is awaiting placement in [facility]io/psych facility. SW following. - Time Time Spent with patient: 15-24 minutes Anticipated Discharge Disposition: Psych Hospital/Unit Anticipated Discharge Timeframe: within 24 hours
[2020-02-06] MEDS: FINASTERIDE 5 MG TABLET PO SCH (17:35)
[2020-02-06] MEDS: TAMSULOSIN HCL 0.4 MG CAP.SR.24H PO SCH (17:35)
[2020-02-07] MEDS: DIAZEPAM 5 MG TABLET PO PRN ×2 (03:39→10:21)
[2020-02-07] MEDS: HEPARIN SOD (PORCINE) 5,000 UNIT/ML 1 ML VIAL SUBCUT SCH ×3 (05:02→21:07)
[2020-02-07] MEDS: FLUTICASONE/VILANTEROL 200-25 MCG/DOSE IH SCH (10:20)
[2020-02-07] MEDS: NICOTINE 21 MG/24 HR PATCH.TD24 TD SCH ×2 (10:20→10:26)
[2020-02-07] MEDS: DILTIAZEM HCL 180 MG CAPSULE.CR PO SCH (10:21)
[2020-02-07] MEDS: ISOSORBIDE MONONITRATE 30 MG TAB.ER.24H PO SCH (10:21)
[2020-02-07] MEDS: DIVALPROEX SODIUM 500 MG TAB.SR.24H PO SCH ×2 (10:21→21:10)
[2020-02-07] MEDS: LISINOPRIL 5 MG TABLET PO SCH (10:21)
[2020-02-07] MEDS: SODIUM CHLORIDE 1 GM TABLET PO SCH (10:21)
[2020-02-07] MEDS: RISPERIDONE 0.25 MG TABLET PO SCH ×2 (10:21→21:10)
--- NOTE | 2020-02-07 10:58 | PDOC PROGRESS REPORT ---
Subjective Progress Note for:: 02/07/20 Subjective:: 59 year old male with history of schizophrenia, gastroparesis reflux disease, COPD, history of hyponatremia was brought to the emergency room after he was found leaning up to both ears after walking for [address] he was an escape from [facility] and was placed on missing person file. Work-up in the ER indicates pneumonia, hyponatremia with a serum sodium of 116.8. ER physician discussed the case with Dr. Webb and also with ICU mill roll operator Dr. Webb was to give 50 mL of 3% normal saline. But ICU attending thinks patient does need to be in ICU does not need to be in 3% normal saline. Dr. flores called me for admission. After discussion with Dr. Webb, I requested Dr. Flores to give 3% normal saline 50 cc over 1 and half hour. I went to see the patient and he told me patient has a seizure-like activity and is able to give a Keppra. Also found to have a short brief of V. tach in the emergency room. The nurses have a hard time keeping the IV line in and he pulled a couple of IV lines. He was given a Catemine and IV line was accessed and started on 3% normal saline. I am going to admit the patient to IMCU but I requested Dr. flores to keep the patient in the ER tonight until mental status and hyponatremia improves. He agreed. pt is unable to give any history. [id number]-[id number]-old male admitted with hyponatremia questionable seizure activity in the ER brief episode of V. tach in the ER. Patient was given a loading dose of Dilantin 1 g now he is on IV Dilantin 100 mg twice a day. Serum sodium came up to 126 plan is to repeat the chemistry now. Psych consult was requested. Plan is to closely monitor the chemistry and mental status. 12/27/2019-patient admitted with hyponatremia of 116 improved to 126. Today's labs are pending. Possible seizure in the ER and he was given Dilantin loading dose and presently on Dilantin 100 mg p.o. twice a day. Plan is to discontinue IV Dilantin because no seizure activity was noticed in the last 24 hours. Patient is combative agitated and belligerent to give Geodon 20 mg IM. Psych consult was requested. Patient may need to go to inpatient rehab once medically cleared. 01/07/2020-patient is comfortable in the bed not in distress. Waiting for placement. 01/08/2020-patient is comfortable in the bed communicating well. Not in distress. Waiting for placement. 01/09/2020-patient is comfortable in the bed not in distress. Watching TV. Denies any problems. Waiting for placement. 01/10/2020-patient is comfortably in the bed communicating well not in distress. Waiting for placement. 01/11/2020-patient is agitated this morning. Screaming and yelling at this time. To give Haldol 5 mg im 1dose. 01/12/2020-patient is comfortably in the bed not in distress. Waiting for placement. 02/07/2020-patient is comfortable in the chair not in distress. He looks depressed. Reason For Visit: HYPONATREMIA Physical Exam Vital Signs: Temp Pulse Resp BP Pulse Ox 97.7 F 84 16 146/89 H 100 02/07/20 08:02 02/07/20 08:00 02/07/20 08:00 02/07/20 08:00 02/07/20 08:00 Intake & Output 02/06/20 02/07/20 02/08/20 06:59 06:59 06:59 Intake Total 640 2713 Output Total 1000 Balance 640 1713 Weight 82.2 kg 84 kg General appearance: PRESENT: no acute distress, well-developed Head exam: PRESENT: atraumatic Eye exam: PRESENT: PERRLA Mouth exam: PRESENT: moist, tongue midline Teeth exam: PRESENT: poor dentation Neck exam: ABSENT: carotid bruit, JVD, lymphadenopathy, thyromegaly Respiratory exam: PRESENT: clear to auscultation alan. ABSENT: rales, rhonchi, wheezes Cardiovascular exam: PRESENT: RRR. ABSENT: diastolic murmur, rubs, systolic murmur GI/Abdominal exam: PRESENT: normal bowel sounds, soft. ABSENT: distended, guarding, mass, organolmegaly, rebound, tenderness Rectal exam: PRESENT: deferred Extremities exam: PRESENT: full ROM. ABSENT: calf tenderness, clubbing, pedal edema Neurological exam: PRESENT: alert, awake, oriented to person, oriented to place, oriented to time, oriented to situation, CN II-XII grossly intact. ABSENT: motor sensory deficit Psychiatric exam: PRESENT: appropriate affect, normal mood. ABSENT: homicidal ideation, suicidal ideation Results Laboratory Results: 01/21/20 09:16 02/06/20 04:08 12/25/19 12/25/19 12/25/19 13:39 13:39 13:39 Creatine Kinase 176 H Cancelled Troponin I 0.068 NT-Pro-B Natriuret Pep 12/25/19 12/26/19 21:27 05:40 Creatine Kinase Troponin I 0.127 0.096 NT-Pro-B Natriuret Pep 818 H Impressions: Chest X-Ray 12/29/19 07:00 IMPRESSION: NO ACUTE RADIOGRAPHIC FINDING IN THE CHEST. Head CT 01/19/20 00:00 IMPRESSION: MILD CHRONIC CHANGES OF ATROPHY AND MICROVASCULAR ISCHEMIA. NO ACUTE PROCESS. EVIDENCE OF ACUTE STROKE: NO. Assessment and Plan - Diagnosis (1) Hyponatremia Is this a current diagnosis for this admission?: Yes Plan: Per Previous Physician: "Initially treated in the emergency department with 3% normal saline. Sodium is improved; 116.8-> 123.6-> 126.3-> 124.9-> 127.9-> 129.5-> 129.8-> 133.0 Patient with history of hyponatremia and psychogenic polydipsia. Mental health service consultation obtained; they have reviewed his medication regiment and made recommendations with regard to his recurrent episodes of hyponatremia. Nephrology is consulted; appreciate their assistance and recommendations. Liberalize dietary sodium; regular diet. Fluid restricted 750 mL's daily. Strict I&O's. 01/07/2020-patient is comfortable in the bed communicating well. Hyponatremia is resolved. Waiting for placement. Latest serum sodium is 136. 01/08/2020-no acute events in the last 24 hours. The serum sodium is 135.5. Stable. 01/12/20- sodium is 139...stable..hyponatremia resolved" 01/17/2020 Due to psychogenic polydipsia as well as multiple psychiatric medications that reduce sodium 02/07/2020-latest serum sodium is 130. Most likely secondary to antipsychotics. Stable. Patient alert awake oriented. (2) Pneumonia Qualifiers: Pneumonia type: due to unspecified organism Laterality: left Lung location: lower lobe of lung Qualified Code(s): J18.9 - Pneumonia, unspecified organism Is this a current diagnosis for this admission?: Yes Plan: Resolved (3) Hypertension Is this a current diagnosis for this admission?: No Plan: - stable - continue clonidine, cardizem, hydralazine and lisinopril 02/07/2020-blood pressure today's 148/83. Plan is to continue clonidine, Cardizem, hydralazine, lisinopril at this time. (4) Altered mental status Qualifiers: Altered mental status type: delirium Qualified Code(s): R41.0 - Disorientation, unspecified Is this a current diagnosis for this admission?: Yes Plan: Per previous physician: "Acute metabolic encephalopathy. Likely multifactorial secondary to hyponatremia, acute illness (left lower lobe pneumonia), in the setting of medication noncompliance and schizophrenia. Gradually improving. Head CT pending Disease specific management as outlined elsewhere. Nursing has been able to remove soft limb restraints today; this afternoon, patient remains calm and cooperative Supportive care. 01/08/2020-altered mental status resolved. Patient is not on restraints.. 01/09/2020-patient is comfortable in the bed communicating reasonably. Not in distress. Not under one-to-one observation. 01/11/20-patient is agitated this morning. Screaming and yelling. To give Haldol 5 mg IM now. To continue to provide medications as recommended by the psych team." 01/05/2020 Stable mentation, still not oriented but very calm today 02/07/2020-patient admitted with acute metabolic encephalopathy most likely multifactorial including hyponatremia. Acute metabolic en colopathy resolved at this time. (5) Seizure Is this a current diagnosis for this admission?: Yes Plan: Per previous physician: "Seizure activity >72 hours Seizure activity noted while in the emergency department. Received loading dose of Dilantin followed by twice daily dosing until the patient has been seizure-free for greater than 48 hours. Have discontinued. Sodium is now improved and no longer a potential cause of seizure activity (129.5 today). We will continue seizure precautions and monitor closely." Continue Depakote (6) Tobacco abuse Is this a current diagnosis for this admission?: Yes (7) Schizophrenia Qualifiers: Schizophrenia type: unspecified Qualified Code(s): F20.9 - Schizophrenia, unspecified Is this a current diagnosis for this admission?: Yes Plan: Calm and cooperative today. Mental health services were consulted with following medication recommendations: on Depakote 500 MG 2x times a day valium 5 mg Po q6 PRN Buspar 5MG twice a day Add Risperdal 0.25MG twice a day - repeat CT head unremarkable (8) Acute kidney injury Is this a current diagnosis for this admission?: Yes Plan: due to NADIYA inhibitor and urinary retention Bladder scan revealed 1.3 L retention, Hess placed Hold NADIYA inhibitor Void trial, if he fails he will need to keep Hess and have prompt follow-up with urology 02/07/2020-latest serum creatinine is 1.14. Stable. Urinary output within normal limits. Lisinopril is on hold at this time. - Plan Summary Summary: Mr. Nathan Joy is a 59 year old man with PMH of HTN, HLD, vascular dementia, and schizophrenia c/b SIADH with resultant chronic hyponatremia who presented to the ED on 12/25/2019 after escaping from [facility] and being found wandering outside. He was found to be lethargic. Initial labs were concerning for severe hyponatremia, sodium 116. There was concern for possible "seizure like activity" in the ED. Nephrology was consulted and recommended giving 3% hypertonic saline due to acute mental status changes associated with severe hy ponatremia. Psychiatry was consulted and made medication recommendations. Hospital course has been prolonged due to the fact that he is awaiting [facility]avio/psych placement. Acute metabolic encephalopathy: multifactorial due to acute on chronic hyponatremia superimposed on schizophrenia and possibly advancing vascular dementia. He now appears to be at baseline mental status, which is impulsive, with waxing and waning orientation. He is awaiting octavio/psych facility placement. Hyponatremia due to SIADH: resolved with NaCl 1 g tablet daily and liberalized salt intake. Likely due to medication effect (antipsychotics and Depakote are both known to cause SIADH). Sodium stable between 130-133 on this regimen. BLANCA: resolved. Cr has been steadily declining from 1.4-->1.3-->1.2-->1.1 today. Was due to dehydration as a result of strict fluid restriction and improved with liberalized fluid intake. We have been unable to give IVF as patient is refusing PIV placement on multiple attempts, getting agitated when we try to place PIV. He no longer has urinary obstruction (he had PVR of less than 300 mL on multiple bladder scans after removal of Hess catheter). - liberalize oral fluid intake to improve hydration - hold ACEI/ARB therapy - avoid nephrotoxins - renally dose medications Essential Hypertension: well controlled. Continue Cardizem and Imdur. Acute urinary retention: Resolved. Removed Hess on 01/21 and patient passed voiding trial. Continue Flomax/Proscar. DVT ppx: heparin Dispo: behaviors are well controlled on current medication regimen. He is awaiting placement in [facility]avio/psych facility. SW following. - Time Anticipated Discharge Disposition: [facility] Anticipated Discharge Timeframe: within 72 hours
[2020-02-07] MEDS: TAMSULOSIN HCL 0.4 MG CAP.SR.24H PO SCH (17:34)
[2020-02-07] MEDS: FINASTERIDE 5 MG TABLET PO SCH (17:34)
[2020-02-08] MEDS: HEPARIN SOD (PORCINE) 5,000 UNIT/ML 1 ML VIAL SUBCUT SCH ×3 (05:07→21:18)
--- NOTE | 2020-02-08 09:34 | PDOC PROGRESS REPORT ---
Subjective Progress Note for:: 02/08/20 Subjective:: 59 year old male with history of schizophrenia, gastroparesis reflux disease, COPD, history of hyponatremia was brought to the emergency room after he was found leaning up to both ears after walking for [address] he was an escape from [facility] and was placed on missing person file. Work-up in the ER indicates pneumonia, hyponatremia with a serum sodium of 116.8. ER physician discussed the case with Dr. Webb and also with ICU respiratory physician Dr. Webb was to give 50 mL of 3% normal saline. But ICU attending thinks patient does need to be in ICU does not need to be in 3% normal saline. Dr. flores called me for admission. After discussion with Dr. Webb, I requested Dr. Flores to give 3% normal saline 50 cc over 1 and half hour. I went to see the patient and he told me patient has a seizure-like activity and is able to give a Keppra. Also found to have a short brief of V. tach in the emergency room. The nurses have a hard time keeping the IV line in and he pulled a couple of IV lines. He was given a Catemine and IV line was accessed and started on 3% normal saline. I am going to admit the patient to IMCU but I requested Dr. flores to keep the patient in the ER tonight until mental status and hyponatremia improves. He agreed. pt is unable to give any history. 12/26/[id number]-phfu-old male admitted with hyponatremia questionable seizure activity in the ER brief episode of V. tach in the ER. Patient was given a loading dose of Dilantin 1 g now he is on IV Dilantin 100 mg twice a day. Serum sodium came up to 126 plan is to repeat the chemistry now. Psych consult was requested. Plan is to closely monitor the chemistry and mental status. 12/27/2019-patient admitted with hyponatremia of 116 improved to 126. Today's labs are pending. Possible seizure in the ER and he was given Dilantin loading dose and presently on Dilantin 100 mg p.o. twice a day. Plan is to discontinue IV Dilantin because no seizure activity was noticed in the last 24 hours. Patient is combative agitated and belligerent to give Geodon 20 mg IM. Psych consult was requested. Patient may need to go to inpatient rehab once medically cleared. 01/07/2020-patient is comfortable in the bed not in distress. Waiting for placement. 01/08/2020-patient is comfortable in the bed communicating well. Not in distress. Waiting for placement. 01/09/2020-patient is comfortable in the bed not in distress. Watching TV. Denies any problems. Waiting for placement. 01/10/2020-patient is comfortably in the bed communicating well not in distress. Waiting for placement. 01/11/2020-patient is agitated this morning. Screaming and yelling at this time. To give Haldol 5 mg im 1dose. 01/12/2020-patient is comfortably in the bed not in distress. Waiting for placement. 02/07/2020-patient is comfortable in the chair not in distress. He looks depressed. 02/08/2020-patient is comfortably sleeping in the bed. Woke up and denies any complaints. Waiting for placement. Reason For Visit: HYPONATREMIA Physical Exam Vital Signs: Temp Pulse Resp BP Pulse Ox 98.6 F 77 16 125/79 95 02/08/20 08:10 02/08/20 08:10 02/08/20 08:10 02/08/20 08:10 02/08/20 08:10 Intake & Output 02/07/20 02/08/20 02/09/20 06:59 06:59 06:59 Intake Total 2713 1022 Output Total 1000 Balance 1713 1022 Weight 84 kg 83.9 kg General appearance: PRESENT: no acute distress, cooperative Head exam: PRESENT: atraumatic Eye exam: PRESENT: PERRLA Mouth exam: PRESENT: moist, tongue midline Teeth exam: PRESENT: poor dentation Neck exam: ABSENT: carotid bruit, JVD, lymphadenopathy, thyromegaly Respiratory exam: PRESENT: decreased breath sounds Cardiovascular exam: PRESENT: RRR. ABSENT: diastolic murmur, rubs, systolic m urmur GI/Abdominal exam: PRESENT: normal bowel sounds, soft. ABSENT: distended, guarding, mass, organolmegaly, rebound, tenderness Rectal exam: PRESENT: deferred Extremities exam: PRESENT: full ROM. ABSENT: calf tenderness, clubbing, pedal edema Neurological exam: PRESENT: alert, awake, oriented to person, oriented to place, oriented to time, oriented to situation, CN II-XII grossly intact. ABSENT: motor sensory deficit Psychiatric exam: PRESENT: appropriate affect, normal mood. ABSENT: homicidal ideation, suicidal ideation Results Laboratory Results: 01/21/20 09:16 02/06/20 04:08 12/25/19 12/25/19 12/25/19 13:39 13:39 13:39 Creatine Kinase 176 H Cancelled Troponin I 0.068 NT-Pro-B Natriuret Pep 12/25/19 12/26/19 21:27 05:40 Creatine Kinase Troponin I 0.127 0.096 NT-Pro-B Natriuret Pep 818 H Impressions: Chest X-Ray 12/29/19 07:00 IMPRESSION: NO ACUTE RADIOGRAPHIC FINDING IN THE CHEST. Head CT 01/19/20 00:00 IMPRESSION: MILD CHRONIC CHANGES OF ATROPHY AND MICROVASCULAR ISCHEMIA. NO ACUTE PROCESS. EVIDENCE OF ACUTE STROKE: NO. Assessment and Plan - Diagnosis (1) Hyponatremia Is this a current diagnosis for this admission?: Yes Plan: Per Previous Physician: "Initially treated in the emergency department with 3% normal saline. Sodium is improved; 116.8-> 123.6-> 126.3-> 124.9-> 127.9-> 129.5-> 129.8-> 133.0 Patient with history of hyponatremia and psychogenic polydipsia. Mental health service consultation obtained; they have reviewed his medication regiment and made recommendations with regard to his recurrent episodes of hyponatremia. Nephrology is consulted; appreciate their assistance and recommendations. Liberalize dietary sodium; regular diet. Fluid restricted 750 mL's daily. Strict I&O's. 01/07/2020-patient is comfortable in the bed communicating well. Hyponatremia is resolved. Waiting for placement. Latest serum sodium is 136. 01/08/2020-no acute events in the last 24 hours. The serum sodium is 135.5. Stable. 01/12/20- sodium is 139...stable..hyponatremia resolved" 01/17/2020 Due to psychogenic polydipsia as well as multiple psychiatric medications that reduce sodium 02/07/2020-latest serum sodium is 130. Most likely secondary to antipsychotics. Stable. Patient alert awake oriented. 02/07-patient has chronic hyponatremia mental status is stable. Plan is to continue the present management at this time (2) Pneumonia Qualifiers: Pneumonia type: due to unspecified organism Laterality: left Lung location: lower lobe of lung Qualified Code(s): J18.9 - Pneumonia, unspecified organism Is this a current diagnosis for this admission?: Yes Plan: Resolved (3) Hypertension Is this a current diagnosis for this admission?: No Plan: - stable - continue clonidine, cardizem, hydralazine and lisinopril 02/07/2020-blood pressure today's 148/83. Plan is to continue clonidine, Cardizem, hydralazine, lisinopril at this time. 02/08/2020-blood pressure today is 125/79. Asymptomatic. (4) Altered mental status Qualifiers: Altered mental status type: delirium Qualified Code(s): R41.0 - Disorientation, unspecified Is this a current diagnosis for this admission?: Yes Plan: Per previous physician: "Acute metabolic encephalopathy. Likely multifactorial secondary to hyponatremia, acute illness (left lower lobe pneumonia), in the setting of medication noncompliance and schizophrenia. Gradually improving. Head CT pending Disease specific management as outlined elsewhere. Nursing has been able to remove soft limb restraints today; this afternoon, patient remains calm and cooperative Supportive care. 01/08/2020-altered mental status resolved. Patient is not on restraints.. 01/09/2020-patient is comfortable in the bed communicating reasonably. Not in distress. Not under one-to-one observation. 01/11/20-patient is agitated this morning. Screaming and yelling. To give Haldol 5 mg IM now. To continue to provide medications as recommended by the psych team." 01/05/2020 Stable mentation, still not oriented but very calm today 02/07/2020-patient admitted with acute metabolic encephalopathy most likely multifactorial including hyponatremia. Acute metabolic en colopathy resolved at this time. (5) Seizure Is this a current diagnosis for this admission?: Yes Plan: Per previous physician: "Seizure activity >72 hours Seizure activity noted while in the emergency department. Received loading dose of Dilantin followed by twice daily dosing until the patient has been seizure-free for greater than 48 hours. Have discontinued. Sodium is now improved and no longer a potential cause of seizure activity (129.5 today). We will continue seizure precautions and monitor closely." Continue Depakote (6) Tobacco abuse Is this a current diagnosis for this admission?: Yes Plan: Daily nicotine patch. (7) Schizophrenia Qualifiers: Schizophrenia type: unspecified Qualified Code(s): F20.9 - Schizophrenia, unspecified Is this a current diagnosis for this admission?: Yes Plan: Calm and cooperative today. Mental health services were consulted with following medication recommendations: on Depakote 500 MG 2x times a day valium 5 mg Po q6 PRN Buspar 5MG twice a day Add Risperdal 0.25MG twice a day - repeat CT head unremarkable (8) Acute kidney injury Is this a current diagnosis for this admission?: Yes Plan: due to NADIYA inhibitor and urinary retention Bladder scan revealed 1.3 L retention, Hess placed Hold NADIYA inhibitor Void trial, if he fails he will need to keep Hess and have prompt follow-up with urology 02/07/2020-latest serum creatinine is 1.14. Stable. Urinary output within normal limits. Lisinopril is on hold at this time. - Plan Summary Summary: Mr. Nathan Joy is a 59 year old man with PMH of HTN, HLD, vascular dementia, and schizophrenia c/b SIADH with resultant chronic hyponatremia who presented to the ED on 12/25/2019 after escaping from [facility] and being found wandering outside. He was found to be lethargic. Initial labs were concerning for severe hyponatremia, sodium 116. There was concern for possible "seizure like activity" in the ED. Nephrology was consulted and recommended giving 3% hypertonic saline due to acute mental status changes associated with severe hyponatremia. Psychiatry was consulted and made medication recommendations. Hospital course has been prolonged due to the fact that he is awaiting octavio/psych placement. Acute metabolic encephalopathy: multifactorial due to acute on chronic hyponatremia superimposed on schizophrenia and possibly advancing vascular dementia. He now appears to be at baseline mental status, which is impulsive, with waxing and waning orientation. He is awaiting octavio/psych facility placement. Hyponatremia due to SIADH: resolved with NaCl 1 g tablet daily and liberalized salt intake. Likely due to medication effect (antipsychotics and Depakote are both known to cause SIADH). Sodium stable between 130-133 on this regimen. BLANCA: resolved. Cr has been steadily declining from 1.4-->1.3-->1.2-->1.1 today. Was due to dehydration as a result of strict fluid restriction and improved with liberalized fluid intake. We have been unable to give IVF as patient is refusing PIV placement on multiple attempts, getting agitated when we try to place PIV. He no longer has urinary obstruction (he had PVR of less than 300 mL on multiple bladder scans after removal of Hess catheter). - liberalize oral fluid intake to improve hydration - hold ACEI/ARB therapy - avoid nephrotoxins - renally dose medications Essential Hypertension: well controlled. Continue Cardizem and Imdur. Acute urinary retention: Resolved. Removed Ehss on 01/21 and patient passed voiding trial. Continue Flomax/Proscar. DVT ppx: heparin Dispo: behaviors are well controlled on current medication regimen. He is awaiting placement in [facility]/psych facility. SW following. - Time Anticipated Discharge Disposition: [facility] Anticipated Discharge Timeframe: within 48 hours
[2020-02-08] MEDS: RISPERIDONE 0.25 MG TABLET PO SCH ×2 (12:13→21:18)
[2020-02-08] MEDS: DILTIAZEM HCL 180 MG CAPSULE.CR PO SCH (12:13)
[2020-02-08] MEDS: SODIUM CHLORIDE 1 GM TABLET PO SCH (12:13)
[2020-02-08] MEDS: DIVALPROEX SODIUM 500 MG TAB.SR.24H PO SCH ×2 (12:13→21:18)
[2020-02-08] MEDS: ISOSORBIDE MONONITRATE 30 MG TAB.ER.24H PO SCH (12:13)
[2020-02-08] MEDS: NICOTINE 21 MG/24 HR PATCH.TD24 TD SCH (12:19)
[2020-02-08] MEDS: FLUTICASONE/VILANTEROL 200-25 MCG/DOSE IH SCH (12:19)
[2020-02-08] MEDS: TAMSULOSIN HCL 0.4 MG CAP.SR.24H PO SCH (17:21)
[2020-02-08] MEDS: FINASTERIDE 5 MG TABLET PO SCH (17:21)
[2020-02-09] MEDS: HEPARIN SOD (PORCINE) 5,000 UNIT/ML 1 ML VIAL SUBCUT SCH ×3 (05:00→21:47)
[2020-02-09 05:42] LABS: ABSOLUTE BASOPHILS # (AUTO) 0.2 10^3/uL (0.0-0.2); ABSOLUTE EOSINOPHILS # (AUTO) 0.2 10^3/uL (0.0-0.6); ABSOLUTE LYMPHOCYTES (AUTO) 2.1 10^3/uL (0.5-4.7); ABSOLUTE MONOCYTES (AUTO) 0.9 10^3/uL (0.1-1.4); ABSOLUTE NEUT (AUTO) 9.8 10^3/uL (1.7-8.2); BASOPHILS % (AUTO) 1.2 % (0-2); EOSINOPHILS % (AUTO) 1.7 % (0-6); HEMATOCRIT 34.8 % (37.9-51.0); HEMOGLOBIN 12.1 g/dL (13.5-17.0); LYMPHOCYTES % (AUTO) 16.1 % (13-45); MEAN CORPUSCULAR HEMOGLOBIN 30.7 pg (27.0-33.4); MEAN CORPUSCULAR HGB CONC 34.9 g/dL (32.0-36.0); MEAN CORPUSCULAR VOLUME 88 fl (80-97); MONOCYTES % (AUTO) 6.9 % (3-13); PLATELET COUNT 288 10^3/uL (150-450); RED BLOOD COUNT 3.95 10^6/uL (4.35-5.55); RED CELL DISTRIBUTION WIDTH 15.1 % (11.5-14.0); SEGMENTED NEUTROPHILS % (AUTO) 74.1 % (42-78); TOTAL CELLS COUNTED % (AUTO) 100 %; WHITE BLOOD COUNT 13.2 10^3/uL (4.0-10.5)
[2020-02-09 06:11] LABS: ALBUMIN 3.7 g/dL (3.5-5.0); ALKALINE PHOSPHATASE 69 U/L (38-126); ANION GAP 11 (5-19); ASPARTATE AMINO TRANSFERASE 15 U/L (17-59); BILIRUBIN,DIRECT 0.2 mg/dL (0.0-0.4); BILIRUBIN,TOTAL 0.3 mg/dL (0.2-1.3); BLOOD UREA NITROGEN 17 mg/dL (7-20); CALCIUM 9.1 mg/dL (8.4-10.2); CARBON DIOXIDE 20 mmol/L (22-30); CHLORIDE 97 mmol/L (98-107); GLUCOSE 90 mg/dL (75-110); POTASSIUM 4.5 mmol/L (3.6-5.0); TOTAL PROTEIN 6.4 g/dL (6.3-8.2)
--- NOTE | 2020-02-09 08:53 | PDOC PROGRESS REPORT ---
Subjective Progress Note for:: 02/09/20 Subjective:: 59 year old male with history of schizophrenia, gastroparesis reflux disease, COPD, history of hyponatremia was brought to the emergency room after he was found leaning up to both ears after walking for [address] he was an escape from [facility] and was placed on missing person file. Work-up in the ER indicates pneumonia, hyponatremia with a serum sodium of 116.8. ER physician discussed the case with Dr. Webb and also with ICU assembly associate Dr. Webb was to give 50 mL of 3% normal saline. But ICU attending thinks patient does need to be in ICU does not need to be in 3% normal saline. Dr. flores called me for admission. After discussion with Dr. Webb, I requested Dr. Flores to give 3% normal saline 50 cc over 1 and half hour. I went to see the patient and he told me patient has a seizure-like activity and is able to give a Keppra. Also found to have a short brief of V. tach in the emergency room. The nurses have a hard time keeping the IV line in and he pulled a couple of IV lines. He was given a Catemine and IV line was accessed and started on 3% normal saline. I am going to admit the patient to IMCU but I requested Dr. flores to keep the patient in the ER tonight until mental status and hyponatremia improves. He agreed. pt is unable to give any history. [id number]-old male admitted with hyponatremia questionable seizure activity in the ER brief episode of V. tach in the ER. Patient was given a loading dose of Dilantin 1 g now he is on IV Dilantin 100 mg twice a day. Serum sodium came up to 126 plan is to repeat the chemistry now. Psych consult was requested. Plan is to closely monitor the chemistry and mental status. 12/27/2019-patient admitted with hyponatremia of 116 improved to 126. Today's labs are pending. Possible seizure in the ER and he was given Dilantin loading dose and presently on Dilantin 100 mg p.o. twice a day. Plan is to discontinue IV Dilantin because no seizure activity was noticed in the last 24 hours. Patient is combative agitated and belligerent to give Geodon 20 mg IM. Psych consult was requested. Patient may need to go to inpatient rehab once medically cleared. 01/07/2020-patient is comfortable in the bed not in distress. Waiting for placement. 01/08/2020-patient is comfortable in the bed communicating well. Not in distress. Waiting for placement. 01/09/2020-patient is comfortable in the bed not in distress. Watching TV. Denies any problems. Waiting for placement. 01/10/2020-patient is comfortably in the bed communicating well not in distress. Waiting for placement. 01/11/2020-patient is agitated this morning. Screaming and yelling at this time. To give Haldol 5 mg im 1dose. 01/12/2020-patient is comfortably in the bed not in distress. Waiting for placement. 02/07/2020-patient is comfortable in the chair not in distress. He looks depressed. 02/08/2020-patient is comfortably sleeping in the bed. Woke up and denies any complaints. Waiting for placement. 02/09/2020-patient is comfortable in the bed. Not in distress. Waiting for placement. Reason For Visit: HYPONATREMIA Physical Exam Vital Signs: Temp Pulse Resp BP Pulse Ox 98.8 F 86 17 125/74 99 02/09/20 08:06 02/09/20 08:06 02/09/20 08:06 02/09/20 08:06 02/09/20 08:06 Intake & Output 02/08/20 02/09/20 02/10/20 06:59 06:59 06:59 Intake Total 1022 2630 Output Total 1 Balance 1022 2629 Weight 83.9 kg 82.6 kg General appearance: PRESENT: no acute distress, cooperative, well-developed Head exam: PRESENT: atraumatic Eye exam: PRESENT: PERRLA Mouth exam: PRESENT: moist, tongue midline Teeth exam: PRESENT: poor dentation Neck exam: ABSENT: carotid bruit, JVD, lymphadenopathy, thyromegaly Respiratory exam: PRESENT: clear to auscultation alan. ABSENT: rales, rhonchi, wheezes Cardiovascular exam: PRESENT: RRR. ABSENT: diastolic murmur, rubs, systolic murmur Pulses: PRESENT: normal dorsalis pedis pul GI/Abdominal exam: PRESENT: normal bowel sounds, soft. ABSENT: distended, guarding, mass, organolmegaly, rebound, tenderness Rectal exam: PRESENT: deferred Extremities exam: PRESENT: full ROM. ABSENT: calf tenderness, clubbing, pedal edema Neurological exam: PRESENT: alert, awake, oriented to person, oriented to place, oriented to time, oriented to situation, CN II-XII grossly intact. ABSENT: motor sensory deficit Psychiatric exam: PRESENT: appropriate affect, normal mood. ABSENT: homicidal ideation, suicidal ideation Results Laboratory Results: 02/09/20 04:40 02/09/20 04:40 02/09/20 02/09/20 04:40 04:40 WBC 13.2 H RBC 3.95 L Hgb 12.1 L Hct 34.8 L MCV 88 MCH 30.7 MCHC 34.9 RDW 15.1 H Plt Count 288 Seg Neutrophils % 74.1 Sodium 128.1 L Potassium 4.5 Chloride 97 L Carbon Dioxide 20 L Anion Gap 11 BUN 17 Creatinine 1.07 Est GFR ( Amer) > 60 Glucose 90 Calcium 9.1 Magnesium 1.7 Total Bilirubin 0.3 AST 15 L Alkaline Phosphatase 69 Total Protein 6.4 Albumin 3.7 12/25/19 12/25/19 12/25/19 13:39 13:39 13:39 Creatine Kinase 176 H Cancelled Troponin I 0.068 NT-Pro-B Natriuret Pep 12/25/19 12/26/19 21:27 05:40 Creatine Kinase Troponin I 0.127 0.096 NT-Pro-B Natriuret Pep 818 H Impressions: Chest X-Ray 12/29/19 07:00 IMPRESSION: NO ACUTE RADIOGRAPHIC FINDING IN THE CHEST. Head CT 01/19/20 00:00 IMPRESSION: MILD CHRONIC CHANGES OF ATROPHY AND MICROVASCULAR ISCHEMIA. NO ACUTE PROCESS. EVIDENCE OF ACUTE STROKE: NO. Assessment and Plan - Diagnosis (1) Hyponatremia Is this a current diagnosis for this admission?: Yes Plan: Per Previous Physician: "Initially treated in the emergency department with 3% normal saline. Sodium is improved; 116.8-> 123.6-> 126.3-> 124.9-> 127.9-> 129.5-> 129.8-> 133.0 Patient with history of hyponatremia and psychogenic polydipsia. Mental health service consultation obtained; they have reviewed his medication regiment and made recommendations with regard to his recurrent episodes of hyponatremia. Nephrology is consulted; appreciate their assistance and recommendations. Liberalize dietary sodium; regular diet. Fluid restricted 750 mL's daily. Strict I&O's. 01/07/2020-patient is comfortable in the bed communicating well. Hyponatremia is resolved. Waiting for placement. Latest serum sodium is 136. 01/08/2020-no acute events in the last 24 hours. The serum sodium is 135.5. Stable. 01/12/20- sodium is 139...stable..hyponatremia resolved" 01/17/2020 Due to psychogenic polydipsia as well as multiple psychiatric medications that reduce sodium 02/07/2020-latest serum sodium is 130. Most likely secondary to antipsychotics. Stable. Patient alert awake oriented. 02/07-patient has chronic hyponatremia mental status is stable. Plan is to continue the present management at this time 02/09/2020-patient has chronic hyponatremia. Serum sodium is 128. Mental status at baseline. (2) Pneumonia Qualifiers: Pneumonia type: due to unspecified organism Laterality: left Lung location: lower lobe of lung Qualified Code(s): J18.9 - Pneumonia, unspecified organism Is this a current diagnosis for this admission?: Yes Plan: Resolved (3) Hypertension Is this a current diagnosis for this admission?: No Plan: - stable - continue clonidine, cardizem, hydralazine and lisinopril 02/07/2020-blood pressure today's 148/83. Plan is to continue clonidine, Cardizem, hydralazine, lisinopril at this time. 02/08/2020-blood pressure today is 125/79. Asymptomatic. 02/09/2020-blood pressure today is 164/80. To continue clonidine, lisinopril, Cardizem, hydralazine at this time. (4) Altered mental status Qualifiers: Altered mental status type: delirium Qualified Code(s): R41.0 - Di sorientation, unspecified Is this a current diagnosis for this admission?: Yes Plan: Per previous physician: "Acute metabolic encephalopathy. Likely multifactorial secondary to hyponatremia, acute illness (left lower lobe pneumonia), in the setting of medication noncompliance and schizophrenia. Gradually improving. Head CT pending Disease specific management as outlined elsewhere. Nursing has been able to remove soft limb restraints today; this afternoon, patient remains calm and cooperative Supportive care. 01/08/2020-altered mental status resolved. Patient is not on restraints.. 01/09/2020-patient is comfortable in the bed communicating reasonably. Not in distress. Not under one-to-one observation. 01/11/20-patient is agitated this morning. Screaming and yelling. To give Haldol 5 mg IM now. To continue to provide medications as recommended by the psych team." 01/05/2020 Stable mentation, still not oriented but very calm today 02/07/2020-patient admitted with acute metabolic encephalopathy most likely multifactorial including hyponatremia. Acute metabolic en colopathy resolved at this time. (5) Seizure Is this a current diagnosis for this admission?: Yes Plan: Per previous physician: "Seizure activity >72 hours Seizure activity noted while in the emergency department. Received loading dose of Dilantin followed by twice daily dosing until the patient has been seizure-free for greater than 48 hours. Have discontinued. Sodium is now improved and no longer a potential cause of seizure activity (129.5 today). We will continue seizure precautions and monitor closely." Continue Depakote (6) Tobacco abuse Is this a current diagnosis for this admission?: Yes Plan: Daily nicotine patch. (7) Schizophrenia Qualifiers: Schizophrenia type: unspecified Qualified Code(s): F20.9 - Schizophrenia, unspecified Is this a current diagnosis for this admission?: Yes Plan: Calm and cooperative today. Mental health services were consulted with following medication recommendations: on Depakote 500 MG 2x times a day valium 5 mg Po q6 PRN Buspar 5MG twice a day Add Risperdal 0.25MG twice a day - repeat CT head unremarkable (8) Acute kidney injury Is this a current diagnosis for this admission?: Yes Plan: due to NADIYA inhibitor and urinary retention Bladder scan revealed 1.3 L retention, Hess placed Hold NADIYA inhibitor Void trial, if he fails he will need to keep Hess and have prompt follow-up with urology 02/07/2020-latest serum creatinine is 1.14. Stable. Urinary output within normal limits. Lisinopril is on hold at this time. - Plan Summary Summary: Mr. Nathan Joy is a 59 year old man with PMH of HTN, HLD, vascular dementia, and schizophrenia c/b SIADH with resultant chronic hyponatremia who presented to the ED on 12/25/2019 after escaping from [facility] and being found wandering outside. He was found to be lethargic. Initial labs were concerning for severe hyponatremia, sodium 116. There was concern for possible "seizure like activity" in the ED. Nephrology was consulted and recommended giving 3% hypertonic saline due to acute mental status changes associated with severe hyponatremia. Psychiatry was consulted and made medication recommendations. Hospital course has been prolonged due to the fact that he is awaiting [facility]/psych placement. Acute metabolic encephalopathy: multifactorial due to acute on chronic hyponatremia superimposed on schizophrenia and possibly advancing vascular dementia. He now appears to be at baseline mental status, which is impulsive, with waxing and waning orientation. He is awaiting [facility]/psych facility placement. Hyponatremia due to SIADH: resolved with NaCl 1 g tablet daily and liberalized salt intake. Likely due to medication effect (antipsychotics and Depakote are both known to cause SIADH). Sodium stable between 130-133 on this regimen. BLANCA: resolved. Cr has been steadily declining from 1.4-->1.3-->1.2-->1.1 today. Was due to dehydration as a result of strict fluid restriction and improved with liberalized fluid intake. We have been unable to give IVF as patient is refusing PIV placement on multiple attempts, getting agitated when we try to place PIV. He no longer has urinary obstruction (he had PVR of less than 300 mL on multiple bladder scans after removal of Hess catheter). - liberalize oral fluid intake to improve hydration - hold ACEI/ARB therapy - avoid nephrotoxins - renally dose medications Essential Hypertension: well controlled. Continue Cardizem and Imdur. Acute urinary retention: Resolved. Removed Hess on 01/21 and patient passed voiding trial. Continue Flomax/Proscar. DVT ppx: heparin Dispo: behaviors are well controlled on current medication regimen. He is awaiting placement in [facility]/psych facility. SW following. - Time Anticipated Discharge Disposition: Assisted Care Facility Anticipated Discharge Timeframe: within 72 hours
[2020-02-09] MEDS: SODIUM CHLORIDE 1 GM TABLET PO SCH (12:15)
[2020-02-09] MEDS: DILTIAZEM HCL 180 MG CAPSULE.CR PO SCH (12:15)
[2020-02-09] MEDS: RISPERIDONE 0.25 MG TABLET PO SCH ×2 (12:15→21:30)
[2020-02-09] MEDS: ISOSORBIDE MONONITRATE 30 MG TAB.ER.24H PO SCH (12:15)
[2020-02-09] MEDS: FLUTICASONE/VILANTEROL 200-25 MCG/DOSE IH SCH (12:15)
[2020-02-09] MEDS: DIVALPROEX SODIUM 500 MG TAB.SR.24H PO SCH ×2 (12:15→21:29)
[2020-02-09] MEDS: NICOTINE 21 MG/24 HR PATCH.TD24 TD SCH (12:17)
[2020-02-09] MEDS: TAMSULOSIN HCL 0.4 MG CAP.SR.24H PO SCH (18:53)
[2020-02-09] MEDS: FINASTERIDE 5 MG TABLET PO SCH (18:53)
[2020-02-10] MEDS: HEPARIN SOD (PORCINE) 5,000 UNIT/ML 1 ML VIAL SUBCUT SCH ×3 (05:02→21:36)
--- NOTE | 2020-02-10 08:41 | PDOC PROGRESS REPORT ---
Subjective Progress Note for:: 02/10/20 Subjective:: 59 year old male with history of schizophrenia, gastroparesis reflux disease, COPD, history of hyponatremia was brought to the emergency room after he was found leaning up to both ears after walking for [address] he was an escape from [facility] and was placed on missing person file. Work-up in the ER indicates pneumonia, hyponatremia with a serum sodium of 116.8. ER physician discussed the case with Dr. Webb and also with ICU regional production manager Dr. Webb was to give 50 mL of 3% normal saline. But ICU attending thinks patient does need to be in ICU does not need to be in 3% normal saline. Dr. flores called me for admission. After discussion with Dr. Webb, I requested Dr. Flores to give 3% normal saline 50 cc over 1 and half hour. I went to see the patient and he told me patient has a seizure-like activity and is able to give a Keppra. Also found to have a short brief of V. tach in the emergency room. The nurses have a hard time keeping the IV line in and he pulled a couple of IV lines. He was given a Catemine and IV line was accessed and started on 3% normal saline. I am going to admit the patient to IMCU but I requested Dr. flores to keep the patient in the ER tonight until mental status and hyponatremia improves. He agreed. pt is unable to give any history. [id number]-old male admitted with hyponatremia questionable seizure activity in the ER brief episode of V. tach in the ER. Patient was given a loading dose of Dilantin 1 g now he is on IV Dilantin 100 mg twice a day. Serum sodium came up to 126 plan is to repeat the chemistry now. Psych consult was requested. Plan is to closely monitor the chemistry and mental status. 12/27/2019-patient admitted with hyponatremia of 116 improved to 126. Today's labs are pending. Possible seizure in the ER and he was given Dilantin loading dose and presently on Dilantin 100 mg p.o. twice a day. Plan is to discontinue IV Dilantin because no seizure activity was noticed in the last 24 hours. Patient is combative agitated and belligerent to give Geodon 20 mg IM. Psych consult was requested. Patient may need to go to inpatient rehab once medically cleared. 01/07/2020-patient is comfortable in the bed not in distress. Waiting for placement. 01/08/2020-patient is comfortable in the bed communicating well. Not in distress. Waiting for placement. 01/09/2020-patient is comfortable in the bed not in distress. Watching TV. Denies any problems. Waiting for placement. 01/10/2020-patient is comfortably in the bed communicating well not in distress. Waiting for placement. 01/11/2020-patient is agitated this morning. Screaming and yelling at this time. To give Haldol 5 mg im 1dose. 01/12/2020-patient is comfortably in the bed not in distress. Waiting for placement. 02/07/2020-patient is comfortable in the chair not in distress. He looks depressed. 02/08/2020-patient is comfortably sleeping in the bed. Woke up and denies any complaints. Waiting for placement. 02/09/2020-patient is comfortable in the bed. Not in distress. Waiting for placement. 02/10/2020-no acute events in the last 24 hours. Waiting for placement. Reason For Visit: HYPONATREMIA Physical Exam Vital Signs: Temp Pulse Resp BP Pulse Ox 98.7 F 79 12 124/73 98 02/10/20 08:00 02/10/20 08:00 02/10/20 08:00 02/10/20 08:00 02/10/20 08:00 Intake & Output 02/09/20 02/10/20 02/11/20 06:59 06:59 06:59 Intake Total 2630 2622 Output Total 1 Balance 2629 2622 Weight 82.6 kg 83.1 kg General appearance: PRESENT: no acute distress, cooperative, well-developed Head exam: PRESENT: atraumatic Eye exam: PRESENT: PERRLA Mouth exam: PRESENT: moist, tongue midline Teeth exam: PRESENT: poor dentation Neck exam: ABSENT: carotid bruit, JVD, lymphadenopathy, thyromegaly Respiratory exam: PRESENT: decreased breath sounds Cardiovascular exam: PRESENT: RRR. ABSENT: diastolic murmur, rubs, systolic murmur Pulses: PRESENT: normal dorsalis pedis pul GI/Abdominal exam: PRESENT: normal bowel sounds, soft. ABSENT: distended, guarding, mass, organolmegaly, rebound, tenderness Rectal exam: PRESENT: deferred Extremities exam: PRESENT: full ROM. ABSENT: calf tenderness, clubbing, pedal edema Neurological exam: PRESENT: alert, awake, oriented to person, oriented to place, oriented to time, oriented to situation, CN II-XII grossly intact. ABSENT: motor sensory deficit Psychiatric exam: PRESENT: appropriate affect, normal mood. ABSENT: homicidal ideation, suicidal ideation Results Laboratory Results: 02/09/20 04:40 02/09/20 04:40 12/25/19 12/25/19 12/25/19 13:39 13:39 13:39 Creatine Kinase 176 H Cancelled Troponin I 0.068 NT-Pro-B Natriuret Pep 12/25/19 12/26/19 21:27 05:40 Creatine Kinase Troponin I 0.127 0.096 NT-Pro-B Natriuret Pep 818 H Impressions: Chest X-Ray 12/29/19 07:00 IMPRESSION: NO ACUTE RADIOGRAPHIC FINDING IN THE CHEST. Head CT 01/19/20 00:00 IMPRESSION: MILD CHRONIC CHANGES OF ATROPHY AND MICROVASCULAR ISCHEMIA. NO ACUTE PROCESS. EVIDENCE OF ACUTE STROKE: NO. Assessment and Plan - Diagnosis (1) Hyponatremia Is this a current diagnosis for this admission?: Yes Plan: Per Previous Physician: "Initially treated in the emergency department with 3% normal saline. Sodium is improved; 116.8-> 123.6-> 126.3-> 124.9-> 127.9-> 129.5-> 129.8-> 133.0 Patient with history of hyponatremia and psychogenic polydipsia. Mental health service consultation obtained; they have reviewed his medication regiment and made recommendations with regard to his recurrent episodes of hyponatremia. Nephrology is consulted; appreciate their assistance and recommendations. Liberalize dietary sodium; regular diet. Fluid restricted 750 mL's daily. Strict I&O's. 01/07/2020-patient is comfortable in the bed communicating well. Hyponatremia is resolved. Waiting for placement. Latest serum sodium is 136. 01/08/2020-no acute events in the last 24 hours. The serum sodium is 135.5. Stable. 01/12/20- sodium is 139...stable..hyponatremia resolved" 01/17/2020 Due to psychogenic polydipsia as well as multiple psychiatric medications that reduce sodium 02/07/2020-latest serum sodium is 130. Most likely secondary to antipsychotics. Stable. Patient alert awake oriented. 02/07-patient has chronic hyponatremia mental status is stable. Plan is to continue the present management at this time 02/09/2020-patient has chronic hyponatremia. Serum sodium is 128. Mental status at baseline. 02/10/2020-patient has history of chronic hyponatremia. Asymptomatic. Comfortably in the bed not in distress. Communicating reasonably. (2) Pneumonia Qualifiers: Pneumonia type: due to unspecified organism Laterality: left Lung location: lower lobe of lung Qualified Code(s): J18.9 - Pneumonia, unspecified organism Is this a current diagnosis for this admission?: Yes Plan: Resolved (3) Hypertension Is this a current diagnosis for this admission?: No Plan: - stable - continue clonidine, cardizem, hydralazine and lisinopril 02/07/2020-blood pressure today's 148/83. Plan is to continue clonidine, Cardizem, hydralazine, lisinopril at this time. 02/08/2020-blood pressure today is 125/79. Asymptomatic. 02/09/2020-blood pressure today is 164/80. To continue clonidine, lisinopril, Cardizem, hydralazine at this time. 02/10/2020-blood pressure this morning 132/84. Stable. (4) Altered mental status Qualifiers: Altered mental status type: delirium Qualified Code(s): R41.0 - Dis orientation, unspecified Is this a current diagnosis for this admission?: Yes Plan: Per previous physician: "Acute metabolic encephalopathy. Likely multifactorial secondary to hyponatremia, acute illness (left lower lobe pneumonia), in the setting of medication noncompliance and schizophrenia. Gradually improving. Head CT pending Disease specific management as outlined elsewhere. Nursing has been able to remove soft limb restraints today; this afternoon, patient remains calm and cooperative Supportive care. 01/08/2020-altered mental status resolved. Patient is not on restraints.. 01/09/2020-patient is comfortable in the bed communicating reasonably. Not in distress. Not under one-to-one observation. 01/11/20-patient is agitated this morning. Screaming and yelling. To give Haldol 5 mg IM now. To continue to provide medications as recommended by the psych team." 01/05/2020 Stable mentation, still not oriented but very calm today 02/07/2020-patient admitted with acute metabolic encephalopathy most likely multifactorial including hyponatremia. Acute metabolic en colopathy resolved at this time. (5) Seizure Is this a current diagnosis for this admission?: Yes Plan: Per previous physician: "Seizure activity >72 hours Seizure activity noted while in the emergency department. Received loading dose of Dilantin followed by twice daily dosing until the patient has been seizure-free for greater than 48 hours. Have discontinued. Sodium is now improved and no longer a potential cause of seizure activity (129.5 today). We will continue seizure precautions and monitor closely." Continue Depakote (6) Tobacco abuse Is this a current diagnosis for this admission?: Yes Plan: Daily nicotine patch. (7) Schizophrenia Qualifiers: Schizophrenia type: unspecified Qualified Code(s): F20.9 - Schizophrenia, unspecified Is this a current diagnosis for this admission?: Yes Plan: Calm and cooperative today. Mental health services were consulted with following medication recommendations: on Depakote 500 MG 2x times a day valium 5 mg Po q6 PRN Buspar 5MG twice a day Add Risperdal 0.25MG twice a day - repeat CT head unremarkable (8) Acute kidney injury Is this a current diagnosis for this admission?: Yes Plan: due to NADIYA inhibitor and urinary retention Bladder scan revealed 1.3 L retention, Hess placed Hold NADIYA inhibitor Void trial, if he fails he will need to keep Hess and have prompt follow-up with urology 02/07/2020-latest serum creatinine is 1.14. Stable. Urinary output within normal limits. Lisinopril is on hold at this time. - Plan Summary Summary: Mr. Nathan Joy is a 59 year old man with PMH of HTN, HLD, vascular dementia, and schizophrenia c/b SIADH with resultant chronic hyponatremia who presented to the ED on 12/25/2019 after escaping from [facility] and being found wandering outside. He was found to be lethargic. Initial labs were concerning for severe hyponatremia, sodium 116. There was concern for possible "seizure like activity" in the ED. Nephrology was consulted and recommended giving 3% hypertonic saline due to acute mental status changes associated with severe hyponatremia. Psychiatry was consulted and made medication recommendations. Hospital course has been prolonged due to the fact that he is awaiting [facility]/psych placement. Acute metabolic encephalopathy: multifactorial due to acute on chronic hyponatremia superimposed on schizophrenia and possibly advancing vascular dementia. He now appears to be at baseline mental status, which is impulsive, with waxing and waning orientation. He is awaiting [facility]/psych facility placement. Hyponatremia due to SIADH: resolved with NaCl 1 g tablet daily and liberalized salt intake. Likely due to medication effect (antipsychotics and Depakote are both known to cause SIADH). Sodium stable between 130-133 on this regimen. BLANCA: resolved. Cr has been steadily declining from 1.4-->1.3-->1.2-->1.1 today. Was due to dehydration as a result of strict fluid restriction and improved with liberalized fluid intake. We have been unable to give IVF as patient is refusing PIV placement on multiple attempts, getting agitated when we try to place PIV. He no longer has urinary obstruction (he had PVR of less than 300 mL on multiple bladder scans after removal of Hess catheter). - liberalize oral fluid intake to improve hydration - hold ACEI/ARB therapy - avoid nephrotoxins - renally dose medications Essential Hypertension: well controlled. Continue Cardizem and Imdur. Acute urinary retention: Resolved. Removed Hess on 01/21 and patient passed voiding trial. Continue Flomax/Proscar. DVT ppx: heparin Dispo: behaviors are well controlled on current medication regimen. He is awaiting placement in [facility]/psych facility. SW following. - Time Anticipated Discharge Disposition: Residential Care Facility Anticipated Discharge Timeframe: within 72 hours
[2020-02-10] MEDS: ISOSORBIDE MONONITRATE 30 MG TAB.ER.24H PO SCH (13:31)
[2020-02-10] MEDS: DILTIAZEM HCL 180 MG CAPSULE.CR PO SCH (13:31)
[2020-02-10] MEDS: SODIUM CHLORIDE 1 GM TABLET PO SCH (13:31)
[2020-02-10] MEDS: RISPERIDONE 0.25 MG TABLET PO SCH ×2 (13:31→23:14)
[2020-02-10] MEDS: DIVALPROEX SODIUM 500 MG TAB.SR.24H PO SCH ×2 (13:31→23:14)
[2020-02-10] MEDS: NICOTINE 21 MG/24 HR PATCH.TD24 TD SCH (13:32)
[2020-02-10] MEDS: FLUTICASONE/VILANTEROL 200-25 MCG/DOSE IH SCH (13:32)
[2020-02-10] MEDS: FINASTERIDE 5 MG TABLET PO SCH (18:16)
[2020-02-10] MEDS: TAMSULOSIN HCL 0.4 MG CAP.SR.24H PO SCH (18:16)
[2020-02-11 05:15] LABS: ABSOLUTE BASOPHILS # (AUTO) 0.1 10^3/uL (0.0-0.2); ABSOLUTE EOSINOPHILS # (AUTO) 0.2 10^3/uL (0.0-0.6); ABSOLUTE LYMPHOCYTES (AUTO) 2.4 10^3/uL (0.5-4.7); ABSOLUTE MONOCYTES (AUTO) 1.2 10^3/uL (0.1-1.4); ABSOLUTE NEUT (AUTO) 10.2 10^3/uL (1.7-8.2); EOSINOPHILS % (AUTO) 1.6 % (0-6); HEMATOCRIT 33.6 % (37.9-51.0); HEMOGLOBIN 11.9 g/dL (13.5-17.0); LYMPHOCYTES % (AUTO) 16.9 % (13-45); MEAN CORPUSCULAR HEMOGLOBIN 31.2 pg (27.0-33.4); MEAN CORPUSCULAR HGB CONC 35.4 g/dL (32.0-36.0); MEAN CORPUSCULAR VOLUME 88 fl (80-97); MONOCYTES % (AUTO) 8.6 % (3-13); PLATELET COUNT 318 10^3/uL (150-450); RED BLOOD COUNT 3.81 10^6/uL (4.35-5.55); RED CELL DISTRIBUTION WIDTH 14.4 % (11.5-14.0); SEGMENTED NEUTROPHILS % (AUTO) 71.9 % (42-78); TOTAL CELLS COUNTED % (AUTO) 100 %; WHITE BLOOD COUNT 14.2 10^3/uL (4.0-10.5)
[2020-02-11] MEDS: HEPARIN SOD (PORCINE) 5,000 UNIT/ML 1 ML VIAL SUBCUT SCH ×3 (05:34→22:59)
[2020-02-11] MEDS: ACETAMINOPHEN 325 MG TABLET PO PRN (05:43)
[2020-02-11 05:53] LABS: ALBUMIN 3.8 g/dL (3.5-5.0); ALKALINE PHOSPHATASE 69 U/L (38-126); ANION GAP 17 (5-19); ASPARTATE AMINO TRANSFERASE 16 U/L (17-59); BILIRUBIN,DIRECT 0.2 mg/dL (0.0-0.4); BILIRUBIN,TOTAL 0.4 mg/dL (0.2-1.3); BLOOD UREA NITROGEN 20 mg/dL (7-20); CALCIUM 8.8 mg/dL (8.4-10.2); CARBON DIOXIDE 19 mmol/L (22-30); CHLORIDE 91 mmol/L (98-107); GLUCOSE 95 mg/dL (75-110); POTASSIUM 4.1 mmol/L (3.6-5.0); TOTAL PROTEIN 6.7 g/dL (6.3-8.2)
[2020-02-11] MEDS ORDERED: DIAZEPAM 5 MG TABLET PO PRN (08:41)
[2020-02-11] MEDS: RISPERIDONE 0.25 MG TABLET PO SCH ×2 (10:01→22:58)
[2020-02-11] MEDS: ISOSORBIDE MONONITRATE 30 MG TAB.ER.24H PO SCH (10:01)
[2020-02-11] MEDS: FLUTICASONE/VILANTEROL 200-25 MCG/DOSE IH SCH (10:01)
[2020-02-11] MEDS: DIVALPROEX SODIUM 500 MG TAB.SR.24H PO SCH ×2 (10:01→22:58)
[2020-02-11] MEDS: DILTIAZEM HCL 180 MG CAPSULE.CR PO SCH (10:01)
[2020-02-11] MEDS: NICOTINE 21 MG/24 HR PATCH.TD24 TD SCH (10:02)
[2020-02-11] MEDS: SODIUM CHLORIDE 1 GM TABLET PO SCH ×2 (11:23→16:17)
--- NOTE | 2020-02-11 15:43 | PDOC PROGRESS REPORT ---
Subjective Subjective:: Per Previous Physician: " 59 year old male with history of schizophrenia, gastroparesis reflux disease, COPD, history of hyponatremia was brought to the emergency room after he was found leaning up to both ears after walking for [address] he was an escape from [facility] and was placed on missing person file. Work-up in the ER indicates pneumonia, hyponatremia with a serum sodium of 116.8. ER physician discussed the case with Dr. Webb and also with ICU bonded structures repairer Dr. Webb was to give 50 mL of 3% normal saline. But ICU attending thinks patient does need to be in ICU does not need to be in 3% normal saline. Dr. flores called me for admission. After discussion with Dr. Webb, I requested Dr. Flores to give 3% normal saline 50 cc over 1 and half hour. I went to see the patient and he told me patient has a seizure-like activity and is able to give a Keppra. Also found to have a short brief of V. tach in the emergency room. The nurses have a hard time keeping the IV line in and he pulled a couple of IV lines. He was given a Catemine and IV line was accessed and started on 3% normal saline. I am going to admit the patient to IMCU but I requested Dr. flores to keep the patient in the ER tonight until mental status and hyponatremia improves. He agreed. pt is unable to give any history. [id number]-old male admitted with hyponatremia questionable seizure acti vity in the ER brief episode of V. tach in the ER. Patient was given a loading dose of Dilantin 1 g now he is on IV Dilantin 100 mg twice a day. Serum sodium came up to 126 plan is to repeat the chemistry now. Psych consult was requested. Plan is to closely monitor the chemistry and mental status. 12/27/2019-patient admitted with hyponatremia of 116 improved to 126. Today's labs are pending. Possible seizure in the ER and he was given Dilantin loading dose and presently on Dilantin 100 mg p.o. twice a day. Plan is to discontinue IV Dilantin because no seizure activity was noticed in the last 24 hours. Patient is combative agitated and belligerent to give Geodon 20 mg IM. Psych consult was requested. Patient may need to go to inpatient rehab once medically cleared. 01/07/2020-patient is comfortable in the bed not in distress. Waiting for placement. 01/08/2020-patient is comfortable in the bed communicating well. Not in distress. Waiting for placement. 01/09/2020-patient is comfortable in the bed not in distress. Watching TV. Denies any problems. Waiting for placement. 01/10/2020-patient is comfortably in the bed communicating well not in distress. Waiting for placement. 01/11/2020-patient is agitated this morning. Screaming and yelling at this time. To give Haldol 5 mg im 1dose. 01/12/2020-patient is comfortably in the bed not in distress. Waiting for plac ement. 02/07/2020-patient is comfortable in the chair not in distress. He looks depressed. 02/08/2020-patient is comfortably sleeping in the bed. Woke up and denies any complaints. Waiting for placement. 02/09/2020-patient is comfortable in the bed. Not in distress. Waiting for placement. 02/10/2020-no acute events in the last 24 hours. Waiting for placement." 02/11/2020 Still waiting on placement. No acute events. Discussed the plan with the patient who is in agreement. Sodium dropping again for the past few days and I do not see any changes made to medications. Increased his sodium tablet frequency. Reason For Visit: HYPONATREMIA Physical Exam Vital Signs: Temp Pulse Resp BP Pulse Ox 97.3 F 74 16 158/96 H 100 02/11/20 10:00 02/11/20 07:51 02/11/20 07:51 02/11/20 07:51 02/11/20 07:51 Intake & Output 02/10/20 02/11/20 02/12/20 06:59 06:59 06:59 Intake Total 2622 1580 Output Total 200 Balance 2622 1580 -200 Weight 83.1 kg 83.3 kg Exam: General appearance: PRESENT: no acute distress, well-developed, well-nourished, calm but asking nonsense questions Head exam: PRESENT: atraumatic, normocephalic Eye exam: PRESENT: conjunctiva pink. ABSENT: scleral icterus Mouth exam: PRESENT: moist Respiratory exam: PRESENT: clear to auscultation alan. ABSENT: rales, rhonchi, wheezes Cardiovascular exam: PRESENT: RRR. ABSENT: diastolic murmur, rubs, systolic murmur GI/Abdominal exam: PRESENT: normal bowel sounds, soft. ABSENT: distended, guarding, mass, organolmegaly, rebound, tenderness Neurological exam: PRESENT: alert, awake, oriented to person Psychiatric exam: PRESENT: appropriate affect, normal mood Skin exam: PRESENT: dry, intact, warm Results Laboratory Results: 02/11/20 04:18 02/11/20 04:18 02/11/20 02/11/20 04:18 04:18 WBC 14.2 H RBC 3.81 L Hgb 11.9 L Hct 33.6 L MCV 88 MCH 31.2 MCHC 35.4 RDW 14.4 H Plt Count 318 Seg Neutrophils % 71.9 Sodium 126.8 L Potassium 4.1 Chloride 91 L Carbon Dioxide 19 L Anion Gap 17 BUN 20 Creatinine 1.21 Est GFR ( Amer) > 60 Glucose 95 Calcium 8.8 Magnesium 1.7 Total Bilirubin 0.4 AST 16 L Alkaline Phosphatase 69 Total Protein 6.7 Albumin 3.8 12/25/19 12/25/19 12/25/19 13:39 13:39 13:39 Creatine Kinase 176 H Cancelled Troponin I 0.068 NT-Pro-B Natriuret Pep 12/25/19 12/26/19 21:27 05:40 Creatine Kinase Troponin I 0.127 0.096 NT-Pro-B Natriuret Pep 818 H Impressions: Chest X-Ray 12/29/19 07:00 IMPRESSION: NO ACUTE RADIOGRAPHIC FINDING IN THE CHEST. Head CT 01/19/20 00:00 IMPRESSION: MILD CHRONIC CHANGES OF ATROPHY AND MICROVASCULAR ISCHEMIA. NO ACUTE PROCESS. EVIDENCE OF ACUTE STROKE: NO. Assessment and Plan - Diagnosis (1) Acute metabolic encephalopathy Is this a current diagnosis for this admission?: Yes Plan: Multifactorial: Hyponatremia superimposed on schizoaffective disorder, acute urinary retention Continue risperidone, buspar Sodium level gradually keila to normal Trend BMP Needs nursing facility placement with locked unit Waxing and waning agitation seems to be his personal baseline mentation (2) Altered mental status Qualifiers: Altered mental status type: delirium Qualified Code(s): R41.0 - Disorientation, unspecified Is this a current diagnosis for this admission?: Yes Plan: Per previous physician: "Acute metabolic encephalopathy. Likely multifactorial secondary to hyponatremia, acute illness (left lower lobe pneumonia), in the setting of medication noncompliance and schizophrenia. Gradually improving. Head CT pending Disease specific management as outlined elsewhere. Nursing has been able to remove soft limb restraints today; this afternoon, patient remains calm and cooperative Supportive care. 01/08/2020-altered mental status resolved. Patient is not on restraints.. 01/09/2020-patient is comfortable in the bed communicating reasonably. Not in distress. Not under one-to-one observation. 01/11/20-patient is agitated this morning. Screaming and yelling. To give H aldol 5 mg IM now. To continue to provide medications as recommended by the psych team." 01/05/2020 Stable mentation, still not oriented but very calm today 02/07/2020-patient admitted with acute metabolic encephalopathy most likely multifactorial including hyponatremia. Acute metabolic en colopathy resolved at this time. (3) Pneumonia Qualifiers: Pneumonia type: due to unspecified organism Laterality: left Lung location: lower lobe of lung Qualified Code(s): J18.9 - Pneumonia, unspecified organism Is this a current diagnosis for this admission?: Yes (4) Seizure Is this a current diagnosis for this admission?: Yes (5) Tobacco abuse Is this a current diagnosis for this admission?: Yes (6) Acute kidney injury Is this a current diagnosis for this admission?: Yes (7) Hypertension Is this a current diagnosis for this admission?: No (8) Hyponatremia Is this a current diagnosis for this admission?: Yes Plan: Per Previous Physician: ""Initially treated in the emergency department with 3% normal saline. Sodium is improved; 116.8-> 123.6-> 126.3-> 124.9-> 127.9-> 129.5-> 129.8-> 133.0 Patient with history of hyponatremia and psychogenic polydipsia. Mental health service consultation obtained; they have reviewed his medication regiment and made recommendations with regard to his recurrent episodes of hyponatremia. Nephrology is consulted; appreciate their assistance and recommendations. Liberalize dietary sodium; regular diet. Fluid restricted 750 mL's daily. Strict I&O's. 01/07/2020-patient is comfortable in the bed communicating well. Hyponatremia is resolved. Waiting for placement. Latest serum sodium is 136. 01/08/2020-no acute events in the last 24 hours. The serum sodium is 135.5. Stable. 01/12/20- sodium is 139...stable..hyponatremia resolved" 01/17/2020 Due to psychogenic polydipsia as well as multiple psychiatric medications that reduce sodium 02/07/2020-latest serum sodium is 130. Most likely secondary to antipsychotics. Stable. Patient alert awake oriented. 02/07-patient has chronic hyponatremia mental status is stable. Plan is to continue the present management at this time 02/09/2020-patient has chronic hyponatremia. Serum sodium is 128. Mental s tatus at baseline. 02/10/2020-patient has history of chronic hyponatremia. Asymptomatic. Comforta marie in the bed not in distress. Communicating reasonably." 02/11/2020 Sodium dropping again for the past few days Increased salt tablet frequency and implemented fluid restriction into diet order (9) Acute urinary retention Is this a current diagnosis for this admission?: Yes - Plan Summary Summary: Mr. Nathan Joy is a 59 year old man with PMH of HTN, HLD, vascular dementia, and schizophrenia c/b SIADH with resultant chronic hyponatremia who presented to the ED on 12/25/2019 after escaping from [facility] and being found wandering outside. He was found to be lethargic. Initial labs were concerning for severe hyponatremia, sodium 116. There was concern for possible "seizure like activity" in the ED. Nephrology was consulted and recommended giving 3% hypertonic saline due to acute mental status changes associated with severe hyponatremia. Psychiatry was consulted and made medication recommendations. Hospital course has been prolonged due to the fact that he is awaiting [facility]/psych placement. Acute metabolic encephalopathy: multifactorial due to acute on chronic hyp onatremia superimposed on schizophrenia and possibly advancing vascular dementia. He now appears to be at baseline mental status, which is impulsive, with waxing and waning orientation. He is awaiting [facility]/psych facility placement. Hyponatremia due to SIADH: resolved with NaCl 1 g tablet daily and liberalized salt intake. Likely due to medication effect (antipsychotics and Depakote are both known to cause SIADH). Sodium stable between 130-133 on this regimen. BLANCA: resolved. Cr has been steadily declining from 1.4-->1.3-->1.2-->1.1 today. Was due to dehydration as a result of strict fluid restriction and improved with liberalized fluid intake. We have been unable to give IVF as patient is refusing PIV placement on multiple attempts, getting agitated when we try to place PIV. He no longer has urinary obstruction (he had PVR of less than 300 mL on multiple bladder scans after removal of Hess catheter). - liberalize oral fluid intake to improve hydration - hold ACEI/ARB therapy - avoid nephrotoxins - renally dose medications Essential Hypertension: well controlled. Continue Cardizem and Imdur. Acute urinary retention: Resolved. Removed Hess on 01/21 and patient passed voiding trial. Continue Flomax/Proscar. DVT ppx: heparin Dispo: behaviors are well controlled on current medication regimen. He is awaiting placement in [facility]/psych facility. SW following. - Time Time Spent with patient: 15-24 minutes Medications reviewed and adjusted accordingly: Yes Anticipated Discharge Disposition: Group Home Facility Anticipated Discharge Timeframe: within 48 hours - Inpatient Certification Based on my medical assessment, after consideration of the patient's comorbidities, presenting symptoms, or acuity I expect that the services needed warrant INPATIENT care.: Yes I certify that my determination is in accordance with my understanding of Medicare's requirements for reasonable and necessary INPATIENT services [42 CFR 412.3e].: Yes Medical Necessity: Significant Comorbidiites Make Outpatient Treatment Too Risky, Need Close Monitoring Due to Risk of Patient Decompensation, Risk of Complication if Not Cared For in Hospital, Risk of Diagnosis Which Will Require Inpatient Eval/Care/Monitoring
[2020-02-11] MEDS: PANTOPRAZOLE SODIUM 40 MG TABLET.DR PO SCH (16:17)
[2020-02-11] MEDS: TAMSULOSIN HCL 0.4 MG CAP.SR.24H PO SCH (17:38)
[2020-02-11] MEDS: FINASTERIDE 5 MG TABLET PO SCH (17:38)
[2020-02-12] MEDS: PANTOPRAZOLE SODIUM 40 MG TABLET.DR PO SCH ×2 (05:37→17:51)
[2020-02-12] MEDS: HEPARIN SOD (PORCINE) 5,000 UNIT/ML 1 ML VIAL SUBCUT SCH ×3 (06:15→22:12)
[2020-02-12] MEDS: SODIUM CHLORIDE 1 GM TABLET PO SCH ×3 (07:49→17:52)
[2020-02-12] MEDS: DILTIAZEM HCL 180 MG CAPSULE.CR PO SCH (09:18)
[2020-02-12] MEDS: FLUTICASONE/VILANTEROL 200-25 MCG/DOSE IH SCH (09:18)
[2020-02-12] MEDS: DIVALPROEX SODIUM 500 MG TAB.SR.24H PO SCH ×2 (09:18→21:40)
[2020-02-12] MEDS: ISOSORBIDE MONONITRATE 30 MG TAB.ER.24H PO SCH (09:18)
[2020-02-12] MEDS: RISPERIDONE 0.25 MG TABLET PO SCH ×2 (09:18→21:41)
[2020-02-12] MEDS: NICOTINE 21 MG/24 HR PATCH.TD24 TD SCH (09:22)
[2020-02-12] MEDS: DIAZEPAM 5 MG TABLET PO PRN ×4 (10:06→21:40)
--- NOTE | 2020-02-12 14:06 | PDOC PROGRESS REPORT ---
Subjective Subjective:: Per Previous Physician: " 59 year old male with history of schizophrenia, gastroparesis reflux disease, COPD, history of hyponatremia was brought to the emergency room after he was found leaning up to both ears after walking for [address] he was an escape from [facility] and was placed on missing person file. Work-up in the ER indicates pneumonia, hyponatremia with a serum sodium of 116.8. ER physician discussed the case with Dr. Webb and also with ICU e learning designer Dr. Webb was to give 50 mL of 3% normal saline. But ICU attending thinks patient does need to be in ICU does not need to be in 3% normal saline. Dr. flores called me for admission. After discussion with Dr. Webb, I requested Dr. Flores to give 3% normal saline 50 cc over 1 and half hour. I went to see the patient and he told me patient has a seizure-like activity and is able to give a Keppra. Also found to have a short brief of V. tach in the emergency room. The nurses have a hard time keeping the IV line in and he pulled a couple of IV lines. He was given a Catemine and IV line was accessed and started on 3% normal saline. I am going to admit the patient to IMCU but I requested Dr. flores to keep the patient in the ER tonight until mental status and hyponatremia improves. He agreed. pt is unable to give any history. [id number]-old male admitted with hyponatremia questionable seizure acti vity in the ER brief episode of V. tach in the ER. Patient was given a loading dose of Dilantin 1 g now he is on IV Dilantin 100 mg twice a day. Serum sodium came up to 126 plan is to repeat the chemistry now. Psych consult was requested. Plan is to closely monitor the chemistry and mental status. 12/27/2019-patient admitted with hyponatremia of 116 improved to 126. Today's labs are pending. Possible seizure in the ER and he was given Dilantin loading dose and presently on Dilantin 100 mg p.o. twice a day. Plan is to discontinue IV Dilantin because no seizure activity was noticed in the last 24 hours. Patient is combative agitated and belligerent to give Geodon 20 mg IM. Psych consult was requested. Patient may need to go to inpatient rehab once medically cleared. 01/07/2020-patient is comfortable in the bed not in distress. Waiting for placement. 01/08/2020-patient is comfortable in the bed communicating well. Not in distress. Waiting for placement. 01/09/2020-patient is comfortable in the bed not in distress. Watching TV. Denies any problems. Waiting for placement. 01/10/2020-patient is comfortably in the bed communicating well not in distress. Waiting for placement. 01/11/2020-patient is agitated this morning. Screaming and yelling at this time. To give Haldol 5 mg im 1dose. 01/12/2020-patient is comfortably in the bed not in distress. Waiting for plac ement. 02/07/2020-patient is comfortable in the chair not in distress. He looks depressed. 02/08/2020-patient is comfortably sleeping in the bed. Woke up and denies any complaints. Waiting for placement. 02/09/2020-patient is comfortable in the bed. Not in distress. Waiting for placement. 02/10/2020-no acute events in the last 24 hours. Waiting for placement." 02/11/2020 Still waiting on placement. No acute events. Discussed the plan with the patient who is in agreement. Sodium dropping again for the past few days and I do not see any changes made to medications. Increased his sodium tablet frequency. 02/12/2020 Patient very angry yelling agitated today. I ordered extra Ativan to be given to the patient. I also spoke to him personally and took him back to his room a nd he seemed to calm down. He seemed to calm her once I opened the blinds to his window so he could see outside. He was yelling about how the mccann were blue and the ceiling is white. He seems calm now. Reviewed vitals and labs with no acute events overnight. Reason For Visit: HYPONATREMIA Physical Exam Vital Signs: Temp Pulse Resp BP Pulse Ox 98.0 F 86 17 121/82 100 02/11/20 23:26 02/11/20 23:26 02/11/20 23:26 02/11/20 23:26 02/11/20 23:26 Intake & Output 02/11/20 02/12/20 02/13/20 06:59 06:59 06:59 Intake Total 1580 1370 Output Total 200 Balance 1580 1170 Weight 83.3 kg 83 kg Exam: General appearance: PRESENT: no acute distress, well-developed, well-nourished, agitated and yelling unintelligible statements Head exam: PRESENT: atraumatic, normocephalic Eye exam: PRESENT: conjunctiva pink. ABSENT: scleral icterus Mouth exam: PRESENT: moist Respiratory exam: PRESENT: clear to auscultation alan. ABSENT: rales, rhonchi, wheezes Cardiovascular exam: PRESENT: RRR. ABSENT: diastolic murmur, rubs, systolic murmur GI/Abdominal exam: PRESENT: normal bowel sounds, soft. ABSENT: distended, guarding, mass, organolmegaly, rebound, tenderness Neurological exam: PRESENT: alert, awake, oriented to person Psychiatric exam: PRESENT: appropriate affect, normal mood Skin exam: PRESENT: dry, intact, warm Results Laboratory Results: 02/11/20 04:18 02/11/20 04:18 12/25/19 12/25/19 12/25/19 13:39 13:39 13:39 Creatine Kinase 176 H Cancelled Troponin I 0.068 NT-Pro-B Natriuret Pep 12/25/19 12/26/19 21:27 05:40 Creatine Kinase Troponin I 0.127 0.096 NT-Pro-B Natriuret Pep 818 H Impressions: Chest X-Ray 12/29/19 07:00 IMPRESSION: NO ACUTE RADIOGRAPHIC FINDING IN THE CHEST. Head CT 01/19/20 00:00 IMPRESSION: MILD CHRONIC CHANGES OF ATROPHY AND MICROVASCULAR ISCHEMIA. NO ACUTE PROCESS. EVIDENCE OF ACUTE STROKE: NO. Assessment and Plan - Diagnosis (1) Acute metabolic encephalopathy Is this a current diagnosis for this admission?: Yes Plan: Multifactorial: Hyponatremia superimposed on schizoaffective disorder, acute urinary retention Continue risperidone, buspar Sodium level gradually keila to normal Trend BMP Needs nursing facility placement with locked unit Waxing and waning agitation seems to be his personal baseline mentation (2) Altered mental status Qualifiers: Altered mental status type: delirium Qualified Code(s): R41.0 - Disorientation, unspecified Is this a current diagnosis for this admission?: Yes Plan: Per previous physician: "Acute metabolic encephalopathy. Likely multifactorial secondary to hyponatremia, acute illness (left lower lobe pneumonia), in the setting of medication noncompliance and schizophrenia. Gradually improving. Head CT pending Disease specific management as outlined elsewhere. Nursing has been able to remove soft limb restraints today; this afternoon, patient remains calm and cooperative Supportive care. 01/08/2020-altered mental status resolved. Patient is not on restraints.. 01/09/2020-patient is comfortable in the bed communicating reasonably. Not in distress. Not under one-to-one observation. 01/11/20-patient is agitated this morning. Screaming and yelling. To give Haldol 5 mg IM now. To continue to provide medications as recommended by the psych team." 01/05/2020 Stable mentation, still not oriented but very calm today 02/07/2020-patient admitted with acute metabolic encephalopathy most likely multifactorial including hyponatremia. Acute metabolic en colopathy resolved at this time. (3) Pneumonia Qualifiers: Pneumonia type: due to unspecified organism Laterality: left Lung location: lower lobe of lung Qualified Code(s): J18.9 - Pneumonia, unspecified organism Is this a current diagnosis for this admission?: Yes Plan: Resolved (4) Seizure Is this a current diagnosis for this admission?: Yes (5) Tobacco abuse Is this a current diagnosis for this admission?: Yes (6) Acute kidney injury Is this a current diagnosis for this admission?: Yes (7) Hypertension Is this a current diagnosis for this admission?: No (8) Hyponatremia Is this a current diagnosis for this admission?: Yes Plan: Per Previous Physician: ""Initially treated in the emergency department with 3% normal saline. Sodium is improved; 116.8-> 123.6-> 126.3-> 124.9-> 127.9-> 129.5-> 129.8-> 133.0 Patient with history of hyponatremia and psychogenic polydipsia. Mental health service consultation obtained; they have reviewed his medication regiment and made recommendations with regard to his recurrent episodes of hyponatremia. Nephrology is consulted; appreciate their assistance and recommendations. Liberalize dietary sodium; regular diet. Fluid restricted 750 mL's daily. Strict I&O's. 01/07/2020-patient is comfortable in the bed communicating well. Hyponatremia is resolved. Waiting for placement. Latest serum sodium is 136. 01/08/2020-no acute events in the last 24 hours. The serum sodium is 135.5. Stable. 01/12/20- sodium is 139...stable..hyponatremia resolved" 01/17/2020 Due to psychogenic polydipsia as well as multiple psychiatric medications that reduce sodium 02/07/2020-latest serum sodium is 130. Most likely secondary to antipsychotics. Stable. Patient alert awake oriented. 02/07-patient has chronic hyponatremia mental status is stable. Plan is to continue the present management at this time 02/09/2020-patient has chronic hyponatremia. Serum sodium is 128. Mental status at baseline. 02/10/2020-patient has history of chronic hyponatremia. Asymptomatic. Comfortably in the bed not in distress. Communicating reasonably." 02/11/2020 Sodium dropping again for the past few days Increased salt tablet frequency and implemented fluid restriction into diet order 02/12/2020 Trend BMP (9) Acute urinary retention Is this a current diagnosis for this admission?: Yes - Plan Summary Summary: Mr. Nathan Joy is a 59 year old man with PMH of HTN, HLD, vascular dementia, and schizophrenia c/b SIADH with resultant chronic hyponatremia who presented to the ED on 12/25/2019 after escaping from [facility] and being found wandering outside. He was found to be lethargic. Initial labs were concerning for severe hyponatremia, sodium 116. There was concern for possible "seizure like activity" in the ED. Nephrology was consulted and recommended giving 3% hypertonic saline due to acute mental status changes associated with severe hy ponatremia. Psychiatry was consulted and made medication recommendations. Hospital course has been prolonged due to the fact that he is awaiting [facility]/psych placement. Acute metabolic encephalopathy: multifactorial due to acute on chronic hyponatremia superimposed on schizophrenia and possibly advancing vascular dementia. He now appears to be at baseline mental status, which is impulsive, with waxing and waning orientation. He is awaiting [facility]/psych facility placement. Hyponatremia due to SIADH: resolved with NaCl 1 g tablet daily and liberalized salt intake. Likely due to medication effect (antipsychotics and Depakote are both known to cause SIADH). Sodium stable between 130-133 on this regimen. BLANCA: resolved. Cr has been steadily declining from 1.4-->1.3-->1.2-->1.1 today. Was due to dehydration as a result of strict fluid restriction and improved with liberalized fluid intake. We have been unable to give IVF as patient is refusing PIV placement on multiple attempts, getting agitated when we try to place PIV. He no longer has urinary obstruction (he had PVR of less than 300 mL on multiple bladder scans after removal of Hess catheter). - liberalize oral fluid intake to improve hydration - hold ACEI/ARB therapy - avoid nephrotoxins - renally dose medications Essential Hypertension: well controlled. Continue Cardizem and Imdur. Acute urinary retention: Resolved. Removed Hess on 01/21 and patient passed voiding trial. Continue Flomax/Proscar. DVT ppx: heparin Dispo: behaviors are well controlled on current medication regimen. He is awaiting placement in [facility]/psych facility. SW following. - Time Time Spent with patient: 25-34 minutes Medications reviewed and adjusted accordingly: Yes Anticipated Discharge Disposition: Psych Hospital/Unit Anticipated Discharge Timeframe: within 72 hours - Inpatient Certification Based on my medical assessment, after consideration of the patient's comorbidities, presenting symptoms, or acuity I expect that the services needed warrant INPATIENT care.: Yes I certify that my determination is in accordance with my understanding of Medicare's requirements for reasonable and necessary INPATIENT services [42 CFR 412.3e].: Yes Medical Necessity: Significant Comorbidiites Make Outpatient Treatment Too Risky, Need Close Monitoring Due to Risk of Patient Decompensation, Risk of Complication if Not Cared For in Hospital, Risk of Diagnosis Which Will Require Inpatient Eval/Care/Monitoring
[2020-02-12] MEDS: DIAZEPAM 5 MG TABLET ONE ×2 (16:38→16:48)
[2020-02-12] MEDS: TAMSULOSIN HCL 0.4 MG CAP.SR.24H PO SCH (17:51)
[2020-02-12] MEDS: FINASTERIDE 5 MG TABLET PO SCH (17:52)
[2020-02-12] MEDS: CHLORPROMAZINE HCL INJ 25 MG/1 ML AMPULE IM PRN (20:04)
[2020-02-13] MEDS: HEPARIN SOD (PORCINE) 5,000 UNIT/ML 1 ML VIAL SUBCUT SCH ×3 (06:24→21:32)
[2020-02-13] MEDS: PANTOPRAZOLE SODIUM 40 MG TABLET.DR PO SCH ×3 (06:24→17:19)
[2020-02-13] MEDS: RISPERIDONE 0.25 MG TABLET PO SCH ×2 (09:21→21:27)
[2020-02-13] MEDS: DILTIAZEM HCL 180 MG CAPSULE.CR PO SCH (09:21)
[2020-02-13] MEDS: ISOSORBIDE MONONITRATE 30 MG TAB.ER.24H PO SCH (09:21)
[2020-02-13] MEDS: SODIUM CHLORIDE 1 GM TABLET PO SCH ×5 (09:21→21:32)
[2020-02-13] MEDS: FLUTICASONE/VILANTEROL 200-25 MCG/DOSE IH SCH (09:22)
[2020-02-13] MEDS: DIVALPROEX SODIUM 500 MG TAB.SR.24H PO SCH ×2 (09:22→21:27)
[2020-02-13] MEDS: NICOTINE 21 MG/24 HR PATCH.TD24 TD SCH (09:26)
[2020-02-13] MEDS: CLONIDINE 0.1 MG/24 HR PATCH.TDWK TD SCH (12:25)
[2020-02-13] MEDS: TAMSULOSIN HCL 0.4 MG CAP.SR.24H PO SCH (17:19)
[2020-02-13] MEDS: FINASTERIDE 5 MG TABLET PO SCH (17:19)
--- NOTE | 2020-02-13 18:57 | PDOC PROGRESS REPORT ---
Subjective Subjective:: Per Previous Physician: " 59 year old male with history of schizophrenia, gastroparesis reflux disease, COPD, history of hyponatremia was brought to the emergency room after he was found leaning up to both ears after walking for [address] he was an escape from [facility] and was placed on missing person file. Work-up in the ER indicates pneumonia, hyponatremia with a serum sodium of 116.8. ER physician discussed the case with Dr. Webb and also with ICU auto radiator specialist Dr. Webb was to give 50 mL of 3% normal saline. But ICU attending thinks patient does need to be in ICU does not need to be in 3% normal saline. Dr. flores called me for admission. After discussion with Dr. Webb, I requested Dr. Flores to give 3% normal saline 50 cc over 1 and half hour. I went to see the patient and he told me patient has a seizure-like activity and is able to give a Keppra. Also found to have a short brief of V. tach in the emergency room. The nurses have a hard time keeping the IV line in and he pulled a couple of IV lines. He was given a Catemine and IV line was accessed and started on 3% normal saline. I am going to admit the patient to IMCU but I requested Dr. flores to keep the patient in the ER tonight until mental status and hyponatremia improves. He agreed. pt is unable to give any history. [id number]-old male admitted with hyponatremia questionable seizure acti vity in the ER brief episode of V. tach in the ER. Patient was given a loading dose of Dilantin 1 g now he is on IV Dilantin 100 mg twice a day. Serum sodium came up to 126 plan is to repeat the chemistry now. Psych consult was requested. Plan is to closely monitor the chemistry and mental status. 12/27/2019-patient admitted with hyponatremia of 116 improved to 126. Today's labs are pending. Possible seizure in the ER and he was given Dilantin loading dose and presently on Dilantin 100 mg p.o. twice a day. Plan is to discontinue IV Dilantin because no seizure activity was noticed in the last 24 hours. Patient is combative agitated and belligerent to give Geodon 20 mg IM. Psych consult was requested. Patient may need to go to inpatient rehab once medically cleared. 01/07/2020-patient is comfortable in the bed not in distress. Waiting for placement. 01/08/2020-patient is comfortable in the bed communicating well. Not in distress. Waiting for placement. 01/09/2020-patient is comfortable in the bed not in distress. Watching TV. Denies any problems. Waiting for placement. 01/10/2020-patient is comfortably in the bed communicating well not in distress. Waiting for placement. 01/11/2020-patient is agitated this morning. Screaming and yelling at this time. To give Haldol 5 mg im 1dose. 01/12/2020-patient is comfortably in the bed not in distress. Waiting for plac ement. 02/07/2020-patient is comfortable in the chair not in distress. He looks depressed. 02/08/2020-patient is comfortably sleeping in the bed. Woke up and denies any complaints. Waiting for placement. 02/09/2020-patient is comfortable in the bed. Not in distress. Waiting for placement. 02/10/2020-no acute events in the last 24 hours. Waiting for placement." 02/11/2020 Still waiting on placement. No acute events. Discussed the plan with the patient who is in agreement. Sodium dropping again for the past few days and I do not see any changes made to medications. Increased his sodium tablet frequency. 02/12/2020 Patient very angry yelling agitated today. I ordered extra Ativan to be given to the patient. I also spoke to him personally and took him back to his room a nd he seemed to calm down. He seemed to calm her once I opened the blinds to his window so he could see outside. He was yelling about how the mccann were blue and the ceiling is white. He seems calm now. Reviewed vitals and labs with no acute events overnight. 02/13/2020 Patient much calmer today and is actually sleeping. He was given Thorazine and Valium overnight which seemed to calm him down quite a bit. I increased his risperidone yesterday although this does not seem to be having much effect so far. We are still looking for disposition for him. Reason For Visit: HYPONATREMIA Physical Exam Vital Signs: Temp Pulse Resp BP Pulse Ox 98.4 F 88 16 130/70 H 96 02/13/20 09:15 02/13/20 08:00 02/13/20 08:00 02/13/20 08:00 02/13/20 08:00 Intake & Output 02/12/20 02/13/20 02/14/20 06:59 06:59 06:59 Intake Total 1370 1105 442 Output Total 200 Balance 1170 1105 442 Weight 83 kg 83 kg Exam: General appearance: PRESENT: no acute distress, well-developed, well-nourished, calm and sleeping Head exam: PRESENT: atraumatic, normocephalic Eye exam: PRESENT: conjunctiva pink. ABSENT: scleral icterus Mouth exam: PRESENT: moist Respiratory exam: PRESENT: clear to auscultation alan. ABSENT: rales, rhonchi, wheezes Cardiovascular exam: PRESENT: RRR. ABSENT: diastolic murmur, rubs, systolic murmur GI/Abdominal exam: PRESENT: normal bowel sounds, soft. ABSENT: distended, guarding, mass, organolmegaly, rebound, tenderness Neurological exam: PRESENT: alert, awake, oriented to person Psychiatric exam: PRESENT: appropriate affect, normal mood Skin exam: PRESENT: dry, intact, warm Results Laboratory Results: 02/11/20 04:18 02/11/20 04:18 12/25/19 12/25/19 12/25/19 13:39 13:39 13:39 Creatine Kinase 176 H Cancelled Troponin I 0.068 NT-Pro-B Natriuret Pep 12/25/19 12/26/19 21:27 05:40 Creatine Kinase Troponin I 0.127 0.096 NT-Pro-B Natriuret Pep 818 H Impressions: Chest X-Ray 12/29/19 07:00 IMPRESSION: NO ACUTE RADIOGRAPHIC FINDING IN THE CHEST. Head CT 01/19/20 00:00 IMPRESSION: MILD CHRONIC CHANGES OF ATROPHY AND MICROVASCULAR ISCHEMIA. NO ACUTE PROCESS. EVIDENCE OF ACUTE STROKE: NO. Assessment and Plan - Diagnosis (1) Acute metabolic encephalopathy Is this a current diagnosis for this admission?: Yes Plan: Multifactorial: Hyponatremia superimposed on schizoaffective disorder, acute urinary retention Continue risperidone, buspar Sodium level gradually keila to normal Trend BMP Needs nursing facility placement with locked unit Waxing and waning agitation seems to be his personal baseline mentation (2) Altered mental status Qualifiers: Altered mental status type: delirium Qualified Code(s): R41.0 - Disorientation, unspecified Is this a current diagnosis for this admission?: Yes (3) Pneumonia Qualifiers: Pneumonia type: due to unspecified organism Laterality: left Lung location: lower lobe of lung Qualified Code(s): J18.9 - Pneumonia, unspecified organism Is this a current diagnosis for this admission?: Yes (4) Seizure Is this a current diagnosis for this admission?: Yes (5) Tobacco abuse Is this a current diagnosis for this admission?: Yes (6) Acute kidney injury Is this a current diagnosis for this admission?: Yes (7) Hypertension Is this a current diagnosis for this admission?: No (8) Hyponatremia Is this a current diagnosis for this admission?: Yes Plan: Per Previous Physician: ""Initially treated in the emergency department with 3% normal saline. Sodium is improved; 116.8-> 123.6-> 126.3-> 124.9-> 127.9-> 129.5-> 129.8-> 133.0 Patient with history of hyponatremia and psychogenic polydipsia. Mental health service consultation obtained; they have reviewed his medication regiment and made recommendations with regard to his recurrent episodes of hyponatremia. Nephrology is consulted; appreciate their assistance and recommendations. Liberalize dietary sodium; regular diet. Fluid restricted 750 mL's daily. Strict I&O's. 01/07/2020-patient is comfortable in the bed communicating well. Hyponatremia is resolved. Waiting for placement. Latest serum sodium is 136. 01/08/2020-no acute events in the last 24 hours. The serum sodium is 135.5. Stable. 01/12/20- sodium is 139...stable..hyponatremia resolved" 01/17/2020 Due to psychogenic polydipsia as well as multiple psychiatric medications that reduce sodium 02/07/2020-latest serum sodium is 130. Most likely secondary to antipsychotics. Stable. Patient alert awake oriented. 02/07-patient has chronic hyponatremia mental status is stable. Plan is to continue the present management at this time 02/09/2020-patient has chronic hyponatremia. Serum sodium is 128. Mental status at baseline. 02/10/2020-patient has history of chronic hyponatremia. Asymptomatic. C omfortably in the bed not in distress. Communicating reasonably." 02/11/2020 Sodium dropping again for the past few days Increased salt tablet frequency and implemented fluid restriction into diet order 02/12/2020 Trend BMP 02/13/2020 Sodium trending down Suspect patient is drinking excess water from the sink in his room, discussed turning off the water to that faucet to prevent this. Unclear if this is feasible. Increased salt tablet frequency (9) Acute urinary retention Is this a current diagnosis for this admission?: Yes - Plan Summary Summary: Mr. Nathan Joy is a 59 year old man with PMH of HTN, HLD, vascular dementia, and schizophrenia c/b SIADH with resultant chronic hyponatremia who presented to the ED on 12/25/2019 after escaping from [facility] and being found wandering outside. He was found to be lethargic. Initial labs were concerning for severe hyponatremia, sodium 116. There was concern for possible "seizure like activity" in the ED. Nephrology was consulted and recommended giving 3% hypertonic saline due to acute mental status changes associated with severe hyponatremia. Psychiatry was consulted and made medication recommendations. Hospital course has been prolonged due to the fact that he is awaiting [facility]/psych placement. Acute metabolic encephalopathy: multifactorial due to acute on chronic hyponatremia superimposed on schizophrenia and possibly advancing vascular dementia. He now appears to be at baseline mental status, which is impulsive, with waxing and waning orientation. He is awaiting [facility]/psych facility placement. Hyponatremia due to SIADH: resolved with NaCl 1 g tablet daily and liberalized salt intake. Likely due to medication effect (antipsychotics and Depakote are both known to cause SIADH). Sodium stable between 130-133 on this regimen. BLANCA: resolved. Cr has been steadily declining from 1.4-->1.3-->1.2-->1.1 today. Was due to dehydration as a result of strict fluid restriction and improved with liberalized fluid intake. We have been unable to give IVF as patient is refusing PIV placement on multiple attempts, getting agitated when we try to place PIV. He no longer has urinary obstruction (he had PVR of less than 300 mL on multiple bladder scans after removal of Hess catheter). - liberalize oral fluid intake to improve hydration - hold ACEI/ARB therapy - avoid nephrotoxins - renally dose medications Essential Hypertension: well controlled. Continue Cardizem and Imdur. Acute urinary retention: Resolved. Removed Hess on 01/21 and patient passed voiding trial. Continue Flomax/Proscar. DVT ppx: heparin Dispo: behaviors are well controlled on current medication regimen. He is awaiting placement in [facility]/psych facility. SW following. - Time Time Spent with patient: 25-34 minutes Medications reviewed and adjusted accordingly: Yes Anticipated Discharge Disposition: Psych Hospital/Unit Anticipated Discharge Timeframe: within 72 hours - Inpatient Certification Based on my medical assessment, after consideration of the patient's comorbidities, presenting symptoms, or acuity I expect that the services needed warrant INPATIENT care.: Yes I certify that my determination is in accordance with my understanding of Medicare's requirements for reasonable and necessary INPATIENT services [42 CFR 412.3e].: Yes Medical Necessity: Significant Comorbidiites Make Outpatient Treatment Too Risky, Need Close Monitoring Due to Risk of Patient Decompensation, Risk of Complication if Not Cared For in Hospital, Risk of Diagnosis Which Will Require Inpatient Eval/Care/Monitoring
[2020-02-13] MEDS: CHLORPROMAZINE HCL INJ 25 MG/1 ML AMPULE IM PRN (19:59)
[2020-02-13] MEDS: DIAZEPAM 5 MG TABLET PO PRN (21:27)
[2020-02-14] MEDS: PANTOPRAZOLE SODIUM 40 MG TABLET.DR PO SCH ×2 (07:33→17:53)
[2020-02-14] MEDS: HEPARIN SOD (PORCINE) 5,000 UNIT/ML 1 ML VIAL SUBCUT SCH ×3 (07:33→21:04)
[2020-02-14] MEDS: DILTIAZEM HCL 180 MG CAPSULE.CR PO SCH (10:21)
[2020-02-14] MEDS: SODIUM CHLORIDE 1 GM TABLET PO SCH ×4 (10:21→21:05)
[2020-02-14] MEDS: DIVALPROEX SODIUM 500 MG TAB.SR.24H PO SCH ×2 (10:21→21:03)
[2020-02-14] MEDS: DIAZEPAM 5 MG TABLET PO PRN ×3 (10:21→21:03)
[2020-02-14] MEDS: NICOTINE 21 MG/24 HR PATCH.TD24 TD SCH (10:21)
[2020-02-14] MEDS: ISOSORBIDE MONONITRATE 30 MG TAB.ER.24H PO SCH (10:21)
[2020-02-14] MEDS: RISPERIDONE 0.25 MG TABLET PO SCH ×2 (10:21→21:03)
[2020-02-14] MEDS: FLUTICASONE/VILANTEROL 200-25 MCG/DOSE IH SCH (10:21)
--- NOTE | 2020-02-14 15:08 | PDOC PROGRESS REPORT ---
Subjective Progress Note for:: 02/14/20 Subjective:: He got agitated last night and got some Thorazine. Apparently settled down, but this morning he was having some urinary retention. We placed a Hess and got nearly a liter of urine out. Prior to having a Hess placed with decompression of his bladder, he was somewhat agitated. He wants more water to drink. Reason For Visit: HYPONATREMIA Physical Exam Vital Signs: Temp Pulse Resp BP Pulse Ox 98.2 F 84 16 113/73 99 02/14/20 10:15 02/14/20 07:16 02/14/20 07:16 02/14/20 07:16 02/14/20 07:16 Intake & Output 02/13/20 02/14/20 02/15/20 06:59 06:59 06:59 Intake Total 1105 992 493 Balance 1105 992 493 Weight 83 kg 85.1 kg General appearance: PRESENT: no acute distress, well-developed, well-nourished, a little agitated this morning Head exam: PRESENT: atraumatic, normocephalic Eye exam: PRESENT: conjunctiva pink. ABSENT: scleral icterus Mouth exam: PRESENT: moist Respiratory exam: PRESENT: clear to auscultation alan. ABSENT: rales, rhonchi, wheezes Cardiovascular exam: PRESENT: RRR. ABSENT: diastolic murmur, rubs, systolic murmur GI/Abdominal exam: PRESENT: normal bowel sounds, soft. ABSENT: distended, guarding, mass, organolmegaly, rebound, tenderness Neurological exam: PRESENT: alert, awake, oriented to person Psychiatric exam: PRESENT: appropriate affect, normal mood Skin exam: PRESENT: dry, intact, warm Results Laboratory Results: 02/11/20 04:18 02/11/20 04:18 12/25/19 12/25/19 12/25/19 13:39 13:39 13:39 Creatine Kinase 176 H Cancelled Troponin I 0.068 NT-Pro-B Natriuret Pep 12/25/19 12/26/19 21:27 05:40 Creatine Kinase Troponin I 0.127 0.096 NT-Pro-B Natriuret Pep 818 H Impressions: Chest X-Ray 12/29/19 07:00 IMPRESSION: NO ACUTE RADIOGRAPHIC FINDING IN THE CHEST. Head CT 01/19/20 00:00 IMPRESSION: MILD CHRONIC CHANGES OF ATROPHY AND MICROVASCULAR ISCHEMIA. NO ACUTE PROCESS. EVIDENCE OF ACUTE STROKE: NO. Assessment and Plan - Diagnosis (1) Acute metabolic encephalopathy Is this a current diagnosis for this admission?: Yes (2) Acute urinary retention Is this a current diagnosis for this admission?: Yes (3) Dehydration Is this a current diagnosis for this admission?: Yes (4) Hyponatremia syndrome Is this a current diagnosis for this admission?: Yes (5) Pneumonia Qualifiers: Pneumonia type: due to unspecified organism Laterality: left Lung location: lower lobe of lung Qualified Code(s): J18.9 - Pneumonia, unspecified organism Is this a current diagnosis for this admission?: Yes (6) Schizophrenia Qualifiers: Schizophrenia type: unspecified Qualified Code(s): F20.9 - Schizophrenia, unspecified Is this a current diagnosis for this admission?: Yes (7) Acute kidney injury Is this a current diagnosis for this admission?: Yes (8) BPH (benign prostatic hyperplasia) Qualifiers: Lower urinary tract symptom presence: symptoms absent Qualified Code(s): N40.0 - Benign prostatic hyperplasia without lower urinary tract symptoms Is this a current diagnosis for this admission?: Yes (9) Emphysema lung Qualifiers: Emphysema type: centrilobular Qualified Code(s): J43.2 - Centrilobular emphysema Is this a current diagnosis for this admission?: Yes (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 Nathan Joy is a 59 year old man with PMH of HTN, HLD, vascular dementia, and schizophrenia c/b SIADH with resultant chronic hyponatremia who presented to the ED on 12/25/2019 after escaping from [facility] and being found wandering outside. He was found to be lethargic. Initial labs were concerning for severe hyponatremia, sodium 116. There was concern for possible "seizure like activity" in the ED. Nephrology was consulted and recommended giving 3% hypertonic saline due to acute mental status changes associated with severe hyponatremia. Psychiatry was consulted and made medication recommendations. Hospital course has been prolonged due to the fact that he is awaiting [facility]/psych placement. Acute metabolic encephalopathy: multifactorial due to acute on chronic hy ponatremia superimposed on schizophrenia and possibly advancing vascular dementia. He now appears to be at baseline mental status, which is impulsive, with waxing and waning orientation. He is awaiting [facility]avio/psych facility placement. Hyponatremia due to SIADH: We have to continue a fluid restriction. He does not like this. We have also ordered some salt tablets, which he does not consistently take. He has responded very well to this treatment when he is compliant. BLANCA: resolved. Essential Hypertension: well controlled. Continue Cardizem and Imdur. Acute urinary retention: He has BPH and we continue Flomax/Proscar. He got some Thorazine last night and I think that this is contributing as well so Thorazine has been discontinued. DVT ppx: heparin Dispo: behaviors are well controlled on current medication regimen. He is awaiting placement in [facility]/psych facility. SW following. - Time Time Spent with patient: 15-24 minutes Anticipated Discharge Disposition: Psych Hospital/Unit Anticipated Discharge Timeframe: Pending placement
[2020-02-14] MEDS: TAMSULOSIN HCL 0.4 MG CAP.SR.24H PO SCH (17:53)
[2020-02-14] MEDS: FINASTERIDE 5 MG TABLET PO SCH (17:53)
[2020-02-14] MEDS ORDERED: OLANZAPINE INJ/PF 10 MG SDV IM ONE (20:00)
[2020-02-15] MEDS: HEPARIN SOD (PORCINE) 5,000 UNIT/ML 1 ML VIAL SUBCUT SCH ×3 (05:11→21:17)
[2020-02-15] MEDS: PANTOPRAZOLE SODIUM 40 MG TABLET.DR PO SCH ×2 (05:11→18:34)
[2020-02-15] MEDS: NICOTINE 21 MG/24 HR PATCH.TD24 TD SCH (10:54)
[2020-02-15] MEDS: DILTIAZEM HCL 180 MG CAPSULE.CR PO SCH (10:55)
[2020-02-15] MEDS: ISOSORBIDE MONONITRATE 30 MG TAB.ER.24H PO SCH (10:56)
[2020-02-15] MEDS: RISPERIDONE 0.25 MG TABLET PO SCH ×2 (10:56→21:11)
[2020-02-15] MEDS: DIVALPROEX SODIUM 500 MG TAB.SR.24H PO SCH ×2 (10:56→21:11)
[2020-02-15] MEDS: SODIUM CHLORIDE 1 GM TABLET PO SCH ×4 (10:56→21:11)
[2020-02-15] MEDS: FLUTICASONE/VILANTEROL 200-25 MCG/DOSE IH SCH (10:58)
--- NOTE | 2020-02-15 14:03 | PDOC PROGRESS REPORT ---
Subjective Progress Note for:: 02/15/20 Subjective:: He was refusing meds, lab draws, and vital signs this morning. They gave him a rather elaborate coloring book and when I came to see him he was sitting calmly on the edge of the bed coloring in the book. Reason For Visit: HYPONATREMIA Physical Exam Vital Signs: Temp Pulse Resp BP Pulse Ox 97.4 F 62 18 115/73 96 02/15/20 08:18 02/14/20 23:00 02/14/20 23:00 02/14/20 23:00 02/14/20 23:00 Intake & Output 02/14/20 02/15/20 02/16/20 06:59 06:59 05:59 Intake Total 992 1539 Output Total 1850 Balance 992 -311 Weight 85.1 kg 83.6 kg General appearance: PRESENT: no acute distress, well-developed, well-nourished, calm for the time being Head exam: PRESENT: atraumatic, normocephalic Eye exam: PRESENT: conjunctiva pink. ABSENT: scleral icterus Mouth exam: PRESENT: moist Respiratory exam: PRESENT: clear to auscultation alan. ABSENT: rales, rhonchi, wheezes Cardiovascular exam: PRESENT: RRR. ABSENT: diastolic murmur, rubs, systolic murmur GI/Abdominal exam: PRESENT: normal bowel sounds, soft. ABSENT: distended, guarding, mass, organolmegaly, rebound, tenderness Neurological exam: PRESENT: alert, awake, oriented to person Psychiatric exam: PRESENT: Gets agitated by interaction, did allow me to examine him Skin exam: PRESENT: dry, intact, warm Results Laboratory Results: 02/11/20 04:18 02/11/20 04:18 12/25/19 12/25/19 12/25/19 13:39 13:39 13:39 Creatine Kinase 176 H Cancelled Troponin I 0.068 NT-Pro-B Natriuret Pep 12/25/19 12/26/19 21:27 05:40 Creatine Kinase Troponin I 0.127 0.096 NT-Pro-B Natriuret Pep 818 H Impressions: Chest X-Ray 12/29/19 07:00 IMPRESSION: NO ACUTE RADIOGRAPHIC FINDING IN THE CHEST. Head CT 01/19/20 00:00 IMPRESSION: MILD CHRONIC CHANGES OF ATROPHY AND MICROVASCULAR ISCHEMIA. NO ACUTE PROCESS. EVIDENCE OF ACUTE STROKE: NO. Assessment and Plan - Diagnosis (1) Acute metabolic encephalopathy Is this a current diagnosis for this admission?: Yes (2) Acute urinary retention Is this a current diagnosis for this admission?: Yes (3) Dehydration Is this a current diagnosis for this admission?: Yes (4) Hyponatremia syndrome Is this a current diagnosis for this admission?: Yes (5) Pneumonia Qualifiers: Pneumonia type: due to unspecified organism Laterality: left Lung location: lower lobe of lung Qualified Code(s): J18.9 - Pneumonia, unspecified organism Is this a current diagnosis for this admission?: Yes (6) Schizophrenia Qualifiers: Schizophrenia type: unspecified Qualified Code(s): F20.9 - Schizophrenia, unspecified Is this a current diagnosis for this admission?: Yes (7) Acute kidney injury Is this a current diagnosis for this admission?: Yes (8) BPH (benign prostatic hyperplasia) Qualifiers: Lower urinary tract symptom presence: symptoms absent Qualified Code(s): N40.0 - Benign prostatic hyperplasia without lower urinary tract symptoms Is this a current diagnosis for this admission?: Yes (9) Emphysema lung Qualifiers: Emphysema type: centrilobular Qualified Code(s): J43.2 - Centrilobular emphysema Is this a current diagnosis for this admission?: Yes (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 Nathan Joy is a 59 year old man with PMH of HTN, HLD, vascular dementia, and schizophrenia c/b SIADH with resultant chronic hyponatremia who presented to the ED on 12/25/2019 after escaping from [facility] and being found wandering outside. He was found to be lethargic. Initial labs were concerning for severe hyponatremia, sodium 116. There was concern for possible "seizure like activity" in the ED. Nephrology was consulted and recommended giving 3% hypertonic saline due to acute mental status changes associated with severe hyponatremia. Psychiatry was consulted and made medication recommendations. Hospital course has been prolonged due to the fact that he is awaiting [facility]/psych placement. Acute metabolic encephalopathy: multifactorial due to acute on chronic hyponatremia superimposed on schizophrenia and possibly advancing vascular dementia. He now appears to be at baseline mental status, which is impulsive, with waxing and waning orientation. He is awaiting octavio/psych facility placement. Hyponatremia due to SIADH: We have to continue a fluid restriction. He does not like this. We have also ordered some salt tablets, which he does not consistently take. He has responded very well to this treatment when he is compliant. BLANCA: resolved. Essential Hypertension: well controlled. Continue Cardizem and Imdur. Acute urinary retention: He has BPH and we continue Flomax/Proscar. He got some Thorazine last night and I think that this is contributing as well so Thorazine has been discontinued. DVT ppx: heparin Dispo: He is awaiting placement in [facility]/psych facility. SW following. He does not always participate in the plan of care but at least he seems to be doing okay as long as he is left alone. - Time Time Spent with patient: 15-24 minutes Anticipated Discharge Disposition: Psych Hospital/Unit Anticipated Discharge Timeframe: when bed available
[2020-02-15] MEDS: FINASTERIDE 5 MG TABLET PO SCH (18:34)
[2020-02-15] MEDS: TAMSULOSIN HCL 0.4 MG CAP.SR.24H PO SCH (18:34)
[2020-02-16] MEDS: HEPARIN SOD (PORCINE) 5,000 UNIT/ML 1 ML VIAL SUBCUT SCH ×3 (05:21→21:45)
[2020-02-16] MEDS: PANTOPRAZOLE SODIUM 40 MG TABLET.DR PO SCH ×2 (05:21→17:24)
[2020-02-16] MEDS: FLUTICASONE/VILANTEROL 200-25 MCG/DOSE IH SCH (10:15)
[2020-02-16] MEDS: NICOTINE 21 MG/24 HR PATCH.TD24 TD SCH (10:16)
[2020-02-16] MEDS: DILTIAZEM HCL 180 MG CAPSULE.CR PO SCH (10:18)
[2020-02-16] MEDS: ISOSORBIDE MONONITRATE 30 MG TAB.ER.24H PO SCH (10:19)
[2020-02-16] MEDS: RISPERIDONE 0.25 MG TABLET PO SCH ×2 (10:19→21:40)
[2020-02-16] MEDS: SODIUM CHLORIDE 1 GM TABLET PO SCH ×4 (10:20→21:40)
[2020-02-16] MEDS: DIVALPROEX SODIUM 500 MG TAB.SR.24H PO SCH (10:20)
--- NOTE | 2020-02-16 16:03 | PDOC PROGRESS REPORT ---
Subjective Progress Note for:: 02/16/20 Subjective:: He continues to refuse meds, lab draws, and vital signs. He wants his fluid restriction lifted but I told him that we would have to be able to check his blood work first and he mumbled something and looked away. Reason For Visit: HYPONATREMIA Physical Exam Vital Signs: Temp Pulse Resp BP Pulse Ox 97.7 F 79 21 H 122/74 98 02/16/20 13:01 02/16/20 13:01 02/16/20 13:01 02/16/20 13:01 02/16/20 13:01 Intake & Output 02/15/20 02/16/20 02/17/20 07:59 06:59 06:59 Intake Total 715 Output Total 475 Balance 240 Weight General appearance: PRESENT: no acute distress, well-developed, well-nourished, calm for the time being Head exam: PRESENT: atraumatic, normocephalic Eye exam: PRESENT: conjunctiva pink. ABSENT: scleral icterus Mouth exam: PRESENT: moist Respiratory exam: PRESENT: clear to auscultation alan. ABSENT: rales, rhonchi, wheezes Cardiovascular exam: PRESENT: RRR. ABSENT: diastolic murmur, rubs, systolic murmur GI/Abdominal exam: PRESENT: normal bowel sounds, soft. ABSENT: distended, guarding, mass, organolmegaly, rebound, tenderness Neurological exam: PRESENT: alert, awake, oriented to person Skin exam: PRESENT: dry, intact, warm Results Laboratory Results: 02/11/20 04:18 02/11/20 04:18 12/25/19 12/25/19 12/25/19 13:39 13:39 13:39 Creatine Kinase 176 H Cancelled Troponin I 0.068 NT-Pro-B Natriuret Pep 12/25/19 12/26/19 21:27 05:40 Creatine Kinase Troponin I 0.127 0.096 NT-Pro-B Natriuret Pep 818 H Impressions: Chest X-Ray 12/29/19 07:00 IMPRESSION: NO ACUTE RADIOGRAPHIC FINDING IN THE CHEST. Head CT 01/19/20 00:00 IMPRESSION: MILD CHRONIC CHANGES OF ATROPHY AND MICROVASCULAR ISCHEMIA. NO ACUTE PROCESS. EVIDENCE OF ACUTE STROKE: NO. Assessment and Plan - Diagnosis (1) Acute metabolic encephalopathy Is this a current diagnosis for this admission?: Yes (2) Acute urinary retention Is this a current diagnosis for this admission?: Yes (3) Dehydration Is this a current diagnosis for this admission?: Yes (4) Hyponatremia syndrome Is this a current diagnosis for this admission?: Yes (5) Pneumonia Qualifiers: Pneumonia type: due to unspecified organism Laterality: left Lung location: lower lobe of lung Qualified Code(s): J18.9 - Pneumonia, unspecified organism Is this a current diagnosis for this admission?: Yes (6) Schizophrenia Qualifiers: Schizophrenia type: unspecified Qualified Code(s): F20.9 - Schizophrenia, unspecified Is this a current diagnosis for this admission?: Yes (7) Acute kidney injury Is this a current diagnosis for this admission?: Yes (8) BPH (benign prostatic hyperplasia) Qualifiers: Lower urinary tract symptom presence: symptoms absent Qualified Code(s): N40.0 - Benign prostatic hyperplasia without lower urinary tract symptoms Is this a current diagnosis for this admission?: Yes (9) Emphysema lung Qualifiers: Emphysema type: centrilobular Qualified Code(s): J43.2 - Centrilobular emphysema Is this a current diagnosis for this admission?: Yes (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 Nathan Joy is a 59 year old man with PMH of HTN, HLD, vascular dementia, an d schizophrenia c/b SIADH with resultant chronic hyponatremia who presented to the ED on 12/25/2019 after escaping from [facility] and being found wandering outside. He was found to be lethargic. Initial labs were concerning for severe hyponatremia, sodium 116. There was concern for possible "seizure like activity" in the ED. Nephrology was consulted and recommended giving 3% hypertonic saline due to acute mental status changes associated with severe hyponatremia. Psychiatry was consulted and made medication recommendations. Hospital course has been prolonged due to the fact that he is awaiting [facility]/psych placement. Acute metabolic encephalopathy: multifactorial due to acute on chronic hyponatremia superimposed on schizophrenia and possibly advancing vascular dementia. He now appears to be at baseline mental status, which is impulsive, with waxing and waning orientation. He is awaiting [facility]/psych facility placement. Hyponatremia due to SIADH: We have to continue a fluid restriction. He does not like this. We have also ordered some salt tablets, which he does not consistently take. He has responded very well to this treatment when he is compliant. I have told him that if he will let us check some labs I can see whether or not we can lift his fluid restriction. BLANCA: resolved. Essential Hypertension: well controlled. Continue Cardizem and Imdur. Acute urinary retention: He has BPH and we continue Flomax/Proscar. He got some Thorazine and I think that this is contributing as well so Thorazine has been discontinued. DVT ppx: heparin Dispo: He is awaiting placement in [facility]psych facility. SW following. He does not always participate in the plan of care but at least he seems to be doing okay as long as he is left alone. - Time Time Spent with patient: 15-24 minutes Anticipated Discharge Disposition: Psych Hospital/Unit Anticipated Discharge Timeframe: when bed available
[2020-02-16] MEDS: FINASTERIDE 5 MG TABLET PO SCH (17:24)
[2020-02-16] MEDS: TAMSULOSIN HCL 0.4 MG CAP.SR.24H PO SCH (17:25)
[2020-02-17] MEDS: DIVALPROEX SODIUM 500 MG TAB.SR.24H PO SCH ×3 (00:05→21:12)
[2020-02-17] MEDS: PANTOPRAZOLE SODIUM 40 MG TABLET.DR PO SCH ×2 (05:14→17:47)
[2020-02-17] MEDS: HEPARIN SOD (PORCINE) 5,000 UNIT/ML 1 ML VIAL SUBCUT SCH ×3 (05:15→22:15)
[2020-02-17 06:48] LABS: ANION GAP 10 (5-19); BLOOD UREA NITROGEN 19 mg/dL (7-20); CALCIUM 8.7 mg/dL (8.4-10.2); CARBON DIOXIDE 22 mmol/L (22-30); CHLORIDE 101 mmol/L (98-107); GLUCOSE 87 mg/dL (75-110); POTASSIUM 4.4 mmol/L (3.6-5.0)
[2020-02-17] MEDS: FLUTICASONE/VILANTEROL 200-25 MCG/DOSE IH SCH (09:40)
[2020-02-17] MEDS: NICOTINE 21 MG/24 HR PATCH.TD24 TD SCH (09:40)
[2020-02-17] MEDS: SODIUM CHLORIDE 1 GM TABLET PO SCH ×4 (13:00→21:12)
[2020-02-17] MEDS: ISOSORBIDE MONONITRATE 30 MG TAB.ER.24H PO SCH (13:00)
[2020-02-17] MEDS: DILTIAZEM HCL 180 MG CAPSULE.CR PO SCH (13:00)
[2020-02-17] MEDS: RISPERIDONE 0.25 MG TABLET PO SCH ×2 (13:01→21:12)
--- NOTE | 2020-02-17 15:45 | PDOC PROGRESS REPORT ---
Subjective Progress Note for:: 02/17/20 Subjective:: No adverse events overnight. No new complaints. He has been eating very well. He relented and let someone draw his blood this morning and it showed that his sodium has come up. As a result, decided to increase his amount of allowable fluids in a day. He was happy about this. Reason For Visit: HYPONATREMIA Physical Exam Vital Signs: Temp Pulse Resp BP Pulse Ox 98.2 F 78 17 138/80 H 97 02/17/20 12:52 02/17/20 12:52 02/17/20 12:52 02/17/20 12:52 02/17/20 12:52 Intake & Output 02/16/20 02/17/20 02/18/20 06:59 06:59 06:59 Intake Total 940 660 Output Total 2300 1000 Balance -1360 -340 Weight 86.8 kg 86.8 kg General appearance: PRESENT: no acute distress, well-developed, well-nourished, calm for the time being Head exam: PRESENT: atraumatic, normocephalic Eye exam: PRESENT: conjunctiva pink. ABSENT: scleral icterus Mouth exam: PRESENT: moist Respiratory exam: PRESENT: clear to auscultation alan. ABSENT: rales, rhonchi, wheezes Cardiovascular exam: PRESENT: RRR. ABSENT: diastolic murmur, rubs, systolic murmur GI/Abdominal exam: PRESENT: normal bowel sounds, soft. ABSENT: distended, guarding, mass, organolmegaly, rebound, tenderness Neurological exam: PRESENT: alert, awake, oriented to person Skin exam: PRESENT: dry, intact, warm Results Laboratory Results: 02/11/20 04:18 02/17/20 04:57 02/17/20 04:57 Sodium 132.6 L Potassium 4.4 Chloride 101 Carbon Dioxide 22 Anion Gap 10 BUN 19 Creatinine 1.24 Est GFR ( Amer) > 60 Glucose 87 Calcium 8.7 12/25/19 12/25/19 12/25/19 13:39 13:39 13:39 Creatine Kinase 176 H Cancelled Troponin I 0.068 NT-Pro-B Natriuret Pep 12/25/19 12/26/19 21:27 05:40 Creatine Kinase Troponin I 0.127 0.096 NT-Pro-B Natriuret Pep 818 H Impressions: Chest X-Ray 12/29/19 07:00 IMPRESSION: NO ACUTE RADIOGRAPHIC FINDING IN THE CHEST. Head CT 01/19/20 00:00 IMPRESSION: MILD CHRONIC CHANGES OF ATROPHY AND MICROVASCULAR ISCHEMIA. NO ACUTE PROCESS. EVIDENCE OF ACUTE STROKE: NO. Assessment and Plan - Diagnosis (1) Acute metabolic encephalopathy Is this a current diagnosis for this admission?: Yes (2) Acute urinary retention Is this a current diagnosis for this admission?: Yes (3) Dehydration Is this a current diagnosis for this admission?: Yes (4) Hyponatremia syndrome Is this a current diagnosis for this admission?: Yes (5) Pneumonia Qualifiers: Pneumonia type: due to unspecified organism Laterality: left Lung location: lower lobe of lung Qualified Code(s): J18.9 - Pneumonia, unspecified organism Is this a current diagnosis for this admission?: Yes (6) Schizophrenia Qualifiers: Schizophrenia type: unspecified Qualified Code(s): F20.9 - Schizophrenia, unspecified Is this a current diagnosis for this admission?: Yes (7) Acute kidney injury Is this a current diagnosis for this admission?: Yes (8) BPH (benign prostatic hyperplasia) Qualifiers: Lower urinary tract symptom presence: symptoms absent Qualified Code(s): N40.0 - Benign prostatic hyperplasia without lower urinary tract symptoms Is this a current diagnosis for this admission?: Yes (9) Emphysema lung Qualifiers: Emphysema type: centrilobular Qualified Code(s): J43.2 - Centrilobular emphysema Is this a current diagnosis for this admission?: Yes (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 Nathan Joy is a 59 year old man with PMH of HTN, HLD, vascular dementia, and schizophrenia c/b SIADH with resultant chronic hyponatremia who presented to the ED on 12/25/2019 after escaping [facility] and being found wandering outside. He was found to be lethargic. Initial labs were concerning for severe hyponatremia, sodium 116. There was concern for possible "seizure like activity" in the ED. Nephrology was consulted and recommended giving 3% hypertonic saline due to acute mental status changes associated with severe hyponatremia. Psychiatry was consulted and made medication recommendations. Hospital course has been prolonged due to the fact that he is awaiting [facility]psych placement. Acute metabolic encephalopathy: multifactorial due to acute on chronic hyponatremia superimposed on schizophrenia and possibly advancing vascular dementia. He now appears to be at baseline mental status, which is impulsive, with waxing and waning orientation. He is awaiting [facility]/psych facility placement. Hyponatremia due to SIADH: We have to continue a fluid restriction, but because I was able to see that his sodium has come up some I have decided to continue his salt tablets but also increase his allowable amount of daily fluids up to 1200 mL a day. BLANCA: resolved. Essential Hypertension: well controlled. Continue Cardizem and Imdur. Acute urinary retention: He has BPH and we continue Flomax/Proscar. He got some Thorazine and I think that this is contributing as well so Thorazine has been discontinued. DVT ppx: heparin Dispo: He is awaiting placement in [facility]psych facility. SW following. He does not always participate in the plan of care but at least he seems to be doing okay as long as he is left alone. - Time Time Spent with patient: 15-24 minutes Anticipated Discharge Disposition: Psych Hospital/Unit Anticipated Discharge Timeframe: when bed available
[2020-02-17] MEDS: TAMSULOSIN HCL 0.4 MG CAP.SR.24H PO SCH (17:47)
[2020-02-17] MEDS: FINASTERIDE 5 MG TABLET PO SCH (17:47)
[2020-02-17] MEDS: DIAZEPAM 5 MG TABLET PO PRN (23:50)
[2020-02-18] MEDS: PANTOPRAZOLE SODIUM 40 MG TABLET.DR PO SCH ×2 (05:53→17:33)
[2020-02-18] MEDS: HEPARIN SOD (PORCINE) 5,000 UNIT/ML 1 ML VIAL SUBCUT SCH ×3 (05:53→22:00)
[2020-02-18] MEDS: DILTIAZEM HCL 180 MG CAPSULE.CR PO SCH (09:30)
[2020-02-18] MEDS: RISPERIDONE 0.25 MG TABLET PO SCH ×2 (09:30→22:01)
[2020-02-18] MEDS: ISOSORBIDE MONONITRATE 30 MG TAB.ER.24H PO SCH (09:30)
[2020-02-18] MEDS: FLUTICASONE/VILANTEROL 200-25 MCG/DOSE IH SCH (09:31)
[2020-02-18] MEDS: SODIUM CHLORIDE 1 GM TABLET PO SCH ×4 (09:31→22:01)
[2020-02-18] MEDS: DIVALPROEX SODIUM 500 MG TAB.SR.24H PO SCH ×2 (09:31→22:00)
[2020-02-18] MEDS: NICOTINE 21 MG/24 HR PATCH.TD24 TD SCH (09:31)
[2020-02-18] MEDS: FINASTERIDE 5 MG TABLET PO SCH (17:32)
[2020-02-18] MEDS: TAMSULOSIN HCL 0.4 MG CAP.SR.24H PO SCH (17:32)
--- NOTE | 2020-02-18 18:32 | PDOC PROGRESS REPORT ---
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 Now needing placement. Patient was seen on morning rounds. He is found resting bed, comfortably, on room air. He was sleeping, but woke easily when I said his name. Asks for a Pepsi and is agreeable when I tell him I must first look at his fluid intake and labs. ROS is otherwise negative and he has no other concerns/requests. No concerns per nursing. Reason For Visit: HYPONATREMIA Physical Exam Vital Signs: Temp Pulse Resp BP Pulse Ox 97.7 F 76 17 106/45 L 94 02/18/20 12:11 02/18/20 12:11 02/18/20 12:11 02/18/20 12:11 02/18/20 12:11 Intake & Output 02/17/20 02/18/20 02/19/20 06:59 06:59 06:59 Intake Total 940 1157 620 Output Total 2300 2825 800 Balance -1360 -1668 -180 Weight 86.8 kg 87.4 kg 87.4 kg General appearance: PRESENT: no acute distress, well-developed, well-nourished Head exam: PRESENT: atraumatic, normocephalic Eye exam: PRESENT: conjunctiva pink, EOMI, PERRLA. ABSENT: scleral icterus Mouth exam: PRESENT: moist, tongue midline Respiratory exam: PRESENT: clear to auscultation alan, symmetrical, unlabored. ABSENT: rales, rhonchi, wheezes Cardiovascular exam: PRESENT: RRR Vascular exam: PRESENT: normal capillary refill Extremities exam: PRESENT: full ROM. ABSENT: calf tenderness, clubbing, pedal edema Musculoskeletal exam: PRESENT: ambulatory Neurological exam: PRESENT: alert, awake, oriented to person, CN II-XII grossly intact. ABSENT: motor sensory deficit Psychiatric exam: PRESENT: appropriate affect, normal mood. ABSENT: homicidal ideation, suicidal ideation Skin exam: PRESENT: dry, intact, warm. ABSENT: cyanosis, rash Results Laboratory Results: 02/11/20 04:18 02/17/20 04:57 12/25/19 12/25/19 12/25/19 13:39 13:39 13:39 Creatine Kinase 176 H Cancelled Troponin I 0.068 NT-Pro-B Natriuret Pep 12/25/19 12/26/19 21:27 05:40 Creatine Kinase Troponin I 0.127 0.096 NT-Pro-B Natriuret Pep 818 H Impressions: Chest X-Ray 12/29/19 07:00 IMPRESSION: NO ACUTE RADIOGRAPHIC FINDING IN THE CHEST. Head CT 01/19/20 00:00 IMPRESSION: MILD CHRONIC CHANGES OF ATROPHY AND MICROVASCULAR ISCHEMIA. NO ACUTE PROCESS. EVIDENCE OF ACUTE STROKE: NO. Assessment and Plan - Diagnosis (1) Primary polydipsia Is this a current diagnosis for this admission?: Yes Plan: Free water fluid restricted to 1200ml daily. Discussed w/ nursing that he may have salt containing fluids (Pepsi, Miguelina Jovita, Tomato juice). Continue strict I&Os (2) Hyponatremia Is this a current diagnosis for this admission?: Yes Plan: Secondary to Primary polydipsia. Mental health service consultation obtained; they have reviewed his medication regiment and made recommendations with regard to his recurrent episodes of h yponatremia. Nephrology previously consulted; appreciate their assistance and recommendations. Liberalize dietary sodium; regular diet. Free water restricted to 1200 mL's daily. Continue Sodium tablet 1 gm QID Strict I&O's. follow up chemistry (3) Schizophrenia Qualifiers: Schizophrenia type: unspecified Qualified Code(s): F20.9 - Schizophrenia, unspecified Is this a current diagnosis for this admission?: Yes Plan: Calm and cooperative today. - repeat CT head unremarkable Mental health services were consulted with following medication recommendations: on Depakote 500 MG 2x times a day valium 5 mg Po q6 PRN; have increased to 10 mg q4hp Buspar 5MG twice a day Add Risperdal 0.25MG twice a day; have increased to 0.5 mg BID (4) Seizure Is this a current diagnosis for this admission?: Yes Plan: No further seizure activity. Seizure activity noted while in the emergency department. Received loading dose of Dilantin followed by twice daily dosing until the patient has been seizure-free for greater than 48 hours. Have discontinued. Sodium is now improved and no longer a potential cause of seizure activity (NA 132). We will continue seizure precautions and monitor closely. Continue Depakote We will check valproic acid level. (5) Hypertension Is this a current diagnosis for this admission?: No Plan: Acceptable blood pressures Continue clonidine, cardizem, isosorbide Lisinopril discontinued secondary to BLANCA. (6) Acute metabolic encephalopathy Is this a current diagnosis for this admission?: Yes Plan: Likely at or near baseline Multifactorial: Hyponatremia superimposed on schizoaffective disorder, acute urinary retention Continue risperidone, buspar Sodium level gradually keila to normal; most recent level acceptable at 132.6 Trend BMP Needs nursing facility placement with locked unit Waxing and waning agitation seems to be his personal baseline mentation (7) BPH (benign prostatic hyperplasia) Qualifiers: Lower urinary tract symptom presence: symptoms absent Qualified Code(s): N40.0 - Benign prostatic hyperplasia without lower urinary tract symptoms Is this a current diagnosis for this admission?: Yes Plan: Continue tamsulosin and Proscar (8) Acute urinary retention Is this a current diagnosis for this admission?: Yes Plan: Belcher to BPH. May also be related to anticholinergic medications. Avoid when able. Thorazine previously discontinued. (9) Emphysema lung Qualifiers: Emphysema type: centrilobular Qualified Code(s): J43.2 - Centrilobular emphysema Is this a current diagnosis for this admission?: Yes Plan: Stable and without exacerbation at this time. (10) Acute kidney injury Is this a current diagnosis for this admission?: Yes Plan: Resolved. Continue to avoid nephrotoxic medications. Periodic lab monitoring. (11) Dehydration Is this a current diagnosis for this admission?: Yes Plan: Resolved. (12) Tobacco abuse Is this a current diagnosis for this admission?: Yes Plan: Daily nicotine patch. (13) Pneumonia Qualifiers: Pneumonia type: due to unspecified organism Laterality: left Lung location: lower lobe of lung Qualified Code(s): J18.9 - Pneumonia, unspecified organism Is this a current diagnosis for this admission?: Yes Plan: Resolved (14) Altered mental status Qualifiers: Altered mental status type: delirium Qualified Code(s): R41.0 - Disorientation, unspecified Is this a current diagnosis for this admission?: Yes Plan: Acute metabolic encephalopathy. Likely multifactorial secondary to hyponatremia, acute illness (left lower lobe pneumonia), in the setting of medication noncompliance and schizophrenia. Gradually improving; likely at, or near, baseline.. Head CT is unremarkable. Disease specific management as outlined elsewhere. - Plan Summary Summary: DVT ppx: heparin Dispo: He is awaiting placement in [facility]psych facility. SW following. He does not always participate in the plan of care but at least he seems to be doing okay as long as he is left alone. - Time Time Spent with patient: 35 or more minutes Medications reviewed and adjusted accordingly: Yes Anticipated Discharge Disposition: Detention Facility Anticipated Discharge Timeframe: when bed available
[2020-02-18] MEDS: BUSPIRONE HCL 10 MG TABLET PO SCH (22:01)
[2020-02-18] MEDS: DIAZEPAM 5 MG TABLET PO PRN (23:23)
[2020-02-19] MEDS: ACETAMINOPHEN 325 MG TABLET PO PRN (04:18)
[2020-02-19] MEDS: HEPARIN SOD (PORCINE) 5,000 UNIT/ML 1 ML VIAL SUBCUT SCH ×3 (05:00→22:34)
[2020-02-19] MEDS: PANTOPRAZOLE SODIUM 40 MG TABLET.DR PO SCH ×3 (05:02→17:13)
[2020-02-19] MEDS: NICOTINE 21 MG/24 HR PATCH.TD24 TD SCH (09:14)
[2020-02-19] MEDS: FLUTICASONE/VILANTEROL 200-25 MCG/DOSE IH SCH (09:15)
[2020-02-19] MEDS: DIVALPROEX SODIUM 500 MG TAB.SR.24H PO SCH ×2 (09:15→22:28)
[2020-02-19] MEDS: SODIUM CHLORIDE 1 GM TABLET PO SCH ×4 (09:15→22:28)
[2020-02-19] MEDS: BUSPIRONE HCL 10 MG TABLET PO SCH ×2 (09:15→22:29)
[2020-02-19] MEDS: ISOSORBIDE MONONITRATE 30 MG TAB.ER.24H PO SCH (09:15)
[2020-02-19] MEDS: DILTIAZEM HCL 180 MG CAPSULE.CR PO SCH (09:15)
[2020-02-19] MEDS: RISPERIDONE 0.25 MG TABLET PO SCH ×2 (09:15→22:28)
--- NOTE | 2020-02-19 12:50 | PDOC PROGRESS REPORT ---
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 Now needing placement. Patient was seen on morning rounds. He is found resting bed, comfortably, on room air. He was awake, oriented to self, and seemed to recognize me but oth erwise did not answer questions. He did say he was tired and then pulled the pillow over his face. ROS is therefore negative. No stated concerns/requests. No concerns per nursing. Reason For Visit: HYPONATREMIA Physical Exam Vital Signs: Temp Pulse Resp BP Pulse Ox 97.7 F 80 19 133/73 H 94 02/19/20 10:00 02/19/20 09:56 02/19/20 09:56 02/19/20 09:56 02/19/20 09:56 Intake & Output 02/18/20 02/19/20 02/20/20 06:59 06:59 06:59 Intake Total 1157 1085 Output Total 2825 3500 Balance -1668 -2415 Weight 87.4 kg 87.4 kg General appearance: PRESENT: no acute distress, well-developed, well-nourished Head exam: PRESENT: atraumatic, normocephalic Eye exam: PRESENT: conjunctiva pink, EOMI, PERRLA. ABSENT: scleral icterus Mouth exam: PRESENT: moist, tongue midline Respiratory exam: PRESENT: clear to auscultation alan, symmetrical, unlabored. ABSENT: rales, rhonchi, wheezes Cardiovascular exam: PRESENT: RRR. ABSENT: diastolic murmur, rubs, systolic murmur Vascular exam: PRESENT: normal capillary refill Extremities exam: PRESENT: full ROM. ABSENT: calf tenderness, clubbing, pedal edema Musculoskeletal exam: PRESENT: ambulatory Neurological exam: PRESENT: alert, awake, oriented to person, CN II-XII grossly intact, other - Baseline mentation. ABSENT: motor sensory deficit Psychiatric exam: PRESENT: appropriate affect, normal mood Skin exam: PRESENT: dry, intact, warm. ABSENT: cyanosis, rash Results Laboratory Results: 02/11/20 04:18 02/17/20 04:57 12/25/19 12/25/19 12/25/19 13:39 13:39 13:39 Creatine Kinase 176 H Cancelled Troponin I 0.068 NT-Pro-B Natriuret Pep 12/25/19 12/26/19 21:27 05:40 Creatine Kinase Troponin I 0.127 0.096 NT-Pro-B Natriuret Pep 818 H Impressions: Chest X-Ray 12/29/19 07:00 IMPRESSION: NO ACUTE RADIOGRAPHIC FINDING IN THE CHEST. Head CT 01/19/20 00:00 IMPRESSION: MILD CHRONIC CHANGES OF ATROPHY AND MICROVASCULAR ISCHEMIA. NO ACUTE PROCESS. EVIDENCE OF ACUTE STROKE: NO. Assessment and Plan - Diagnosis (1) Primary polydipsia Is this a current diagnosis for this admission?: Yes Plan: Free water fluid restricted to 1200ml daily. Discussed w/ nursing that he may have salt containing fluids (Pepsi, Miguelina Jovita, Tomato juice). Continue strict I&Os (2) Hyponatremia Is this a current diagnosis for this admission?: Yes Plan: Secondary to Primary polydipsia. Mental health service consultation obtained; they have reviewed his medication regiment and made recommendations with regard to his recurrent episodes of hyponatremia. Nephrology previously consulted; appreciate their assistance and recom mendations. Liberalize dietary sodium; regular diet. Free water restricted to 1200 mL's daily. Continue Sodium tablet 1 gm QID Strict I&O's. follow up chemistry pending (3) Schizophrenia Qualifiers: Schizophrenia type: unspecified Qualified Code(s): F20.9 - Schizophrenia, unspecified Is this a current diagnosis for this admission?: Yes Plan: Calm and cooperative today. - repeat CT head unremarkable Mental health services were consulted with following medication recommendations: on Depakote 500 MG 2x times a day valium 5 mg Po q6 PRN; have increased to 10 mg q4hp Buspar 5MG twice a day Add Risperdal 0.25MG twice a day; have increased to 0.5 mg BID (4) Seizure Is this a current diagnosis for this admission?: Yes Plan: No further seizure activity. Seizure activity noted while in the emergency department. Received loading dose of Dilantin followed by twice daily dosing until the patient has been seizure-free for greater than 48 hours. Have discontinued. Sodium is now improved and no longer a potential cause of seizure activity (NA 132). We will continue seizure precautions and monitor closely. Continue Depakote We will check valproic acid level. (5) Hypertension Is this a current diagnosis for this admission?: No Plan: Acceptable blood pressures Continue clonidine, cardizem, isosorbide Lisinopril discontinued secondary to BLANCA. (6) Acute metabolic encephalopathy Is this a current diagnosis for this admission?: Yes Plan: Likely at or near baseline Multifactorial: Hyponatremia superimposed on schizoaffective disorder, acute urinary retention Continue risperidone, buspar Sodium level gradually keila to normal; most recent level acceptable at 132.6 Trend BMP Needs nursing facility placement with locked unit Waxing and waning agitation seems to be his personal baseline mentation (7) BPH (benign prostatic hyperplasia) Qualifiers: Lower urinary tract symptom presence: symptoms absent Qualified Code(s): N40.0 - Benign prostatic hyperplasia without lower urinary tract symptoms Is this a current diagnosis for this admission?: Yes Plan: Continue tamsulosin and Proscar (8) Acute urinary retention Is this a current diagnosis for this admission?: Yes Plan: Secondary to BPH. May also be related to anticholinergic medications. Avoid when able. Thorazine previously discontinued. (9) Emphysema lung Qualifiers: Emphysema type: centrilobular Qualified Code(s): J43.2 - Centrilobular emphysema Is this a current diagnosis for this admission?: Yes Plan: Stable and without exacerbation at this time. (10) Acute kidney injury Is this a current diagnosis for this admission?: Yes Plan: Resolved. Continue to avoid nephrotoxic medications. Periodic lab monitoring. (11) Dehydration Is this a current diagnosis for this admission?: Yes Plan: Resolved. (12) Tobacco abuse Is this a current diagnosis for this admission?: Yes Plan: Daily nicotine patch. (13) Pneumonia Qualifiers: Pneumonia type: due to unspecified organism Laterality: left Lung location: lower lobe of lung Qualified Code(s): J18.9 - Pneumonia, unspecified organism Is this a current diagnosis for this admission?: Yes Plan: Resolved (14) Altered mental status Qualifiers: Altered mental status type: delirium Qualified Code(s): R41.0 - Disorientation, unspecified Is this a current diagnosis for this admission?: Yes Plan: Acute metabolic encephalopathy. Likely multifactorial secondary to hyponatremia, acute illness (left lower lobe pneumonia), in the setting of medication noncompliance and schizophrenia. Gradually improving; likely at, or near, baseline.. Head CT is unremarkable. Disease specific management as outlined elsewhere. - Plan Summary Summary: DVT ppx: heparin Dispo: He is [facility]. SW following. He does not always participate in the plan of care but at least he seems to be doing okay as long as he is left alone. Vital signs decrease to once daily. - Time Time Spent with patient: 15-24 minutes Medications reviewed and adjusted accordingly: Yes Anticipated Discharge Disposition: [facility] Anticipated Discharge Timeframe: when bed available
[2020-02-19] MEDS: FINASTERIDE 5 MG TABLET PO SCH (17:13)
[2020-02-19] MEDS: TAMSULOSIN HCL 0.4 MG CAP.SR.24H PO SCH (17:13)
[2020-02-20] MEDS: PANTOPRAZOLE SODIUM 40 MG TABLET.DR PO SCH ×2 (05:12→18:21)
[2020-02-20] MEDS: HEPARIN SOD (PORCINE) 5,000 UNIT/ML 1 ML VIAL SUBCUT SCH ×3 (05:12→22:06)
[2020-02-20] MEDS ORDERED: HALOPERIDOL LACTATE INJ 5 MG/1 ML VIAL IM ONE (08:28)
[2020-02-20] MEDS ORDERED: HALOPERIDOL LACTATE INJ 5 MG/1 ML VIAL IV ONE (08:28)
[2020-02-20] MEDS ORDERED: HALOPERIDOL LACTATE INJ 5 MG/1 ML VIAL ONE (08:45)
[2020-02-20 09:27] LABS: HEMATOCRIT 33.3 % (37.9-51.0); HEMOGLOBIN 11.6 g/dL (13.5-17.0); MEAN CORPUSCULAR HGB CONC 34.9 g/dL (32.0-36.0); MEAN CORPUSCULAR VOLUME 89 fl (80-97); PLATELET COUNT 271 10^3/uL (150-450); RED BLOOD COUNT 3.75 10^6/uL (4.35-5.55); RED CELL DISTRIBUTION WIDTH 13.9 % (11.5-14.0); WHITE BLOOD COUNT 24.2 10^3/uL (4.0-10.5)
[2020-02-20 09:40] LABS: BLOOD UREA NITROGEN 16 mg/dL (7-20); CALCIUM 8.6 mg/dL (8.4-10.2); CHLORIDE 97 mmol/L (98-107); GLUCOSE 94 mg/dL (75-110); POTASSIUM 3.9 mmol/L (3.6-5.0)
[2020-02-20 09:43] LABS: ANION GAP 11 (5-19); CARBON DIOXIDE 22 mmol/L (22-30)
[2020-02-20 10:08] LABS: APPEARANCE,URINE TURBID; BILIRUBIN,URINE NEGATIVE (NEGATIVE); COLOR,URINE YELLOW; GLUCOSE, URINE NEGATIVE (NEGATIVE); KETONES,URINE NEGATIVE (NEGATIVE); LEUKOCYTE ESTERASE,URINE LARGE (NEGATIVE); NITRITE,URINE NEGATIVE (NEGATIVE); PROTEIN,URINE 100 mg/dL (NEGATIVE); UROBILINOGEN,URINE NEGATIVE mg/dL (<2.0)
[2020-02-20] MEDS ORDERED: LEVOFLOXACIN 750 MG/D5W RTU 750 MG/150 ML RTUPB IV SCH (11:00)
[2020-02-20] MEDS: NICOTINE 21 MG/24 HR PATCH.TD24 TD SCH (11:28)
[2020-02-20] MEDS: FLUTICASONE/VILANTEROL 200-25 MCG/DOSE IH SCH (11:30)
[2020-02-20] MEDS: CLONIDINE 0.1 MG/24 HR PATCH.TDWK TD SCH (11:30)
[2020-02-20] MEDS ORDERED: LEVOFLOXACIN 750 MG TABLET PO SCH (11:30)
[2020-02-20] MEDS: DILTIAZEM HCL 180 MG CAPSULE.CR PO SCH (11:38)
[2020-02-20] MEDS: BUSPIRONE HCL 10 MG TABLET PO SCH ×2 (11:38→22:00)
[2020-02-20] MEDS: DIVALPROEX SODIUM 500 MG TAB.SR.24H PO SCH ×2 (11:38→21:59)
[2020-02-20] MEDS: RISPERIDONE 0.25 MG TABLET PO SCH ×2 (11:39→22:00)
[2020-02-20] MEDS: SODIUM CHLORIDE 1 GM TABLET PO SCH ×4 (11:39→22:00)
[2020-02-20] MEDS: ISOSORBIDE MONONITRATE 30 MG TAB.ER.24H PO SCH (11:39)
[2020-02-20] MEDS ORDERED: LORAZEPAM INJ 2 MG/1 ML VIAL IV PRN (12:41)
--- NOTE | 2020-02-20 12:44 | PDOC PROGRESS REPORT ---
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 Now needing placement. Patient was seen on morning rounds. He is found resting bed, comfortably, on room air. He was drowsy, having just been medicated for anxiety to allow for IV start and blood draw; he did make eye contact but then quickly fell back to sleep. Per nursing, he was quite agitated earlier this morning but redirectable. Unable to review ROS. No stated concerns/requests. Nursing reports the patient has been frequently requesting to remove his Hess catheter due to discomfort. They have also noted increased sediment and foul smell to the urine. Reason For Visit: HYPONATREMIA Physical Exam Vital Signs: Temp Pulse Resp BP Pulse Ox 97.7 F 91 17 120/79 95 02/20/20 08:14 02/20/20 00:26 02/20/20 00:26 02/20/20 00:26 02/20/20 00:26 Intake & Output 02/19/20 02/20/20 02/21/20 06:59 06:59 06:59 Intake Total 1085 2015 Output Total 3500 800 Balance -2415 1215 Weight 87.4 kg 82.9 kg 82.9 kg General appearance: PRESENT: no acute distress, well-developed, well-nourished Head exam: PRESENT: atraumatic, normocephalic Eye exam: PRESENT: conjunctiva pink, EOMI, PERRLA. ABSENT: scleral icterus Mouth exam: PRESENT: moist, tongue midline Respiratory exam: PRESENT: clear to auscultation alan, symmetrical, unlabored, other - room air. ABSENT: rales, rhonchi, wheezes Cardiovascular exam: PRESENT: RRR, +S1, +S2. ABSENT: diastolic murmur, rubs, systolic murmur Pulses: PRESENT: normal dorsalis pedis pul Vascular exam: PRESENT: normal capillary refill GI/Abdominal exam: PRESENT: normal bowel sounds, soft. ABSENT: distended, guarding, mass, organolmegaly, rebound, tenderness Rectal exam: PRESENT: deferred Gentrourinary exam: PRESENT: indwelling catheter Extremities exam: PRESENT: full ROM. ABSENT: calf tenderness, clubbing, pedal edema Musculoskeletal exam: PRESENT: ambulatory Neurological exam: PRESENT: CN II-XII grossly intact, other - Sleeping soundly; at baseline mentation. ABSENT: motor sensory deficit Skin exam: PRESENT: dry, intact, warm. ABSENT: cyanosis, rash Results Laboratory Results: 02/20/20 09:05 02/20/20 09:05 02/20/20 02/20/20 02/20/20 09:05 09:05 09:30 WBC 24.2 H RBC 3.75 L Hgb 11.6 L Hct 33.3 L MCV 89 MCH 31.0 MCHC 34.9 RDW 13.9 Plt Count 271 Sodium 130.4 L Potassium 3.9 Chloride 97 L Carbon Dioxide 22 Anion Gap 11 BUN 16 Creatinine 1.30 H Est GFR ( Amer) > 60 Glucose 94 Calcium 8.6 Urine Color YELLOW Urine Appearance TURBID Urine pH 6.0 Ur Specific [place] 1.010 Urine Protein 100 H Urine Glucose (UA) NEGATIVE Urine Ketones NEGATIVE Urine Blood MODERATE H Urine Nitrite NEGATIVE Ur Leukocyte Esterase LARGE H Urine WBC (Auto) >182 Urine RBC (Auto) 88 12/25/19 12/25/19 12/25/19 13:39 13:39 13:39 Creatine Kinase 176 H Cancelled Troponin I 0.068 NT-Pro-B Natriuret Pep 12/25/19 12/26/19 21:27 05:40 Creatine Kinase Troponin I 0.127 0.096 NT-Pro-B Natriuret Pep 818 H Impressions: Chest X-Ray 12/29/19 07:00 IMPRESSION: NO ACUTE RADIOGRAPHIC FINDING IN THE CHEST. Head CT 01/19/20 00:00 IMPRESSION: MILD CHRONIC CHANGES OF ATROPHY AND MICROVASCULAR ISCHEMIA. NO ACUTE PROCESS. EVIDENCE OF ACUTE STROKE: NO. Assessment and Plan - Diagnosis (1) UTI (urinary tract infection) due to urinary indwelling catheter Qualifiers: Indwelling urinary catheter type: indwelling urethral catheter Encounter type: initial encounter Qualified Code(s): T83.511A - Infection and inflammatory reaction due to indwelling urethral catheter, initial encounter; N39.0 - Urinary tract infection, site not specified Is this a current diagnosis for this admission?: Yes Plan: UA reveals UTI WBCs 24k Urine and blood cultures pending. Hess is removed. Start IV Levaquin. (2) Primary polydipsia Is this a current diagnosis for this admission?: Yes Plan: Free water fluid restricted to 1200ml daily. Discussed w/ nursing that he may have salt containing fluids (Pepsi, Miguelina Jovita, Tomato juice). Continue strict I&Os (3) Hyponatremia Is this a current diagnosis for this admission?: Yes Plan: Improved; Na 116-> 130 currently. Secondary to Primary polydipsia. Mental health service consultation obtained; they have reviewed his medication regiment and made recommendations with regard to his recurrent episodes of hyponatremia. Nephrology previously consulted; appreciate their assistance and recommendations. Liberalize dietary sodium; regular diet. Free water restricted to 1200 mL's daily. Continue Sodium tablet 1 gm QID Strict I&O's. (4) Schizophrenia Qualifiers: Schizophrenia type: unspecified Qualified Code(s): F20.9 - Schizophrenia, unspecified Is this a current diagnosis for this admission?: Yes Plan: Calm and cooperative today. - repeat CT head unremarkable Mental health services were consulted with following medication recommendations: on Depakote 500 MG 2x times a day valium 5 mg Po q6 PRN; have increased to 10 mg q4hp Buspar 5MG twice a day Add Risperdal 0.25MG twice a day; have increased to 0.5 mg BID (5) Seizure Is this a current diagnosis for this admission?: Yes Plan: No further seizure activity. Seizure activity noted while in the emergency department. Received loading dose of Dilantin followed by twice daily dosing until the p atient has been seizure-free for greater than 48 hours. Have discontinued. Sodium is now improved and no longer a potential cause of seizure activity (NA 132). We will continue seizure precautions and monitor closely. Continue Depakote We will check valproic acid level. (6) Hypertension Is this a current diagnosis for this admission?: No Plan: Acceptable blood pressures Continue clonidine, cardizem, isosorbide Lisinopril discontinued secondary to BLANCA. (7) Acute metabolic encephalopathy Is this a current diagnosis for this admission?: Yes Plan: Likely at or near baseline Multifactorial: Hyponatremia superimposed on schizoaffective disorder, acute urinary retention Continue risperidone, buspar Sodium level gradually keila to normal; most recent level acceptable at 132.6 Trend BMP Needs nursing facility placement with locked unit Waxing and waning agitation seems to be his personal baseline mentation (8) BPH (benign prostatic hyperplasia) Qualifiers: Lower urinary tract symptom presence: symptoms absent Qualified Code(s): N40.0 - Benign prostatic hyperplasia without lower urinary tract symptoms Is this a current diagnosis for this admission?: Yes Plan: Continue tamsulosin and Proscar (9) Acute urinary retention Is this a current diagnosis for this admission?: Yes Plan: Secondary to BPH. May also be related to anticholinergic medications. Avoid when able. Thorazine previously discontinued. Hess to be removed today. Bladder scan q6 and report 200 ml. Will start PRN straight caths if necessary. Hopefully now that patient has had >1 month of proscar and tamulosin he will not have reoccurrence. (10) Emphysema lung Qualifiers: Emphysema type: centrilobular Qualified Code(s): J43.2 - Centrilobular emphysema Is this a current diagnosis for this admission?: Yes Plan: Stable and without exacerbation at this time. (11) Acute kidney injury Is this a current diagnosis for this admission?: Yes Plan: Resolved. Continue to avoid nephrotoxic medications. Periodic lab monitoring. (12) Dehydration Is this a current diagnosis for this admission?: Yes Plan: Resolved. (13) Tobacco abuse Is this a current diagnosis for this admission?: Yes Plan: Daily nicotine patch. (14) Pneumonia Qualifiers: Pneumonia type: due to unspecified organism Laterality: left Lung location: lower lobe of lung Qualified Code(s): J18.9 - Pneumonia, unspecified organism Is this a current diagnosis for this admission?: Yes Plan: Resolved (15) Altered mental status Qualifiers: Altered mental status type: delirium Qualified Code(s): R41.0 - Disorientation, unspecified Is this a current diagnosis for this admission?: Yes Plan: Acute metabolic encephalopathy. Likely multifactorial secondary to hyponatremia, acute illness (left lower lobe pneumonia), in the setting of medication noncompliance and schizophrenia. Gradually improving; likely at, or near, baseline. Head CT is unremarkable. Disease specific management as outlined elsewhere. - Plan Summary Summary: DVT ppx: heparin Dispo: He is awaiting placement [facility]. SW following. He does not always participate in the plan of care but at least he seems to be doing okay as long as he is left alone. Vital signs decrease to once daily. - Time Time Spent with patient: 35 or more minutes Medications reviewed and adjusted accordingly: Yes Anticipated [facility] Anticipated Discharge Timeframe: when bed available
[2020-02-20] MEDS ORDERED: ZIPRASIDONE MESYLATE INJ/PF 20 MG SDV IM ONE (14:00)
[2020-02-20] MEDS: TAMSULOSIN HCL 0.4 MG CAP.SR.24H PO SCH (18:21)
[2020-02-20] MEDS: FINASTERIDE 5 MG TABLET PO SCH (18:21)
[2020-02-20] MEDS: LEVOFLOXACIN 750 MG TABLET PO SCH (18:21)
[2020-02-21] MEDS: HEPARIN SOD (PORCINE) 5,000 UNIT/ML 1 ML VIAL SUBCUT SCH ×3 (06:16→22:45)
[2020-02-21] MEDS: PANTOPRAZOLE SODIUM 40 MG TABLET.DR PO SCH ×2 (06:42→17:55)
[2020-02-21] MEDS: DIVALPROEX SODIUM 500 MG TAB.SR.24H PO SCH ×3 (09:44→23:14)
[2020-02-21] MEDS: BUSPIRONE HCL 10 MG TABLET PO SCH ×3 (09:44→23:13)
[2020-02-21] MEDS: ISOSORBIDE MONONITRATE 30 MG TAB.ER.24H PO SCH (09:44)
[2020-02-21] MEDS: SODIUM CHLORIDE 1 GM TABLET PO SCH ×5 (09:44→23:14)
[2020-02-21] MEDS: RISPERIDONE 0.25 MG TABLET PO SCH ×2 (09:44→22:52)
[2020-02-21] MEDS: FLUTICASONE/VILANTEROL 200-25 MCG/DOSE IH SCH (09:44)
[2020-02-21] MEDS: DILTIAZEM HCL 180 MG CAPSULE.CR PO SCH (09:45)
[2020-02-21] MEDS: NICOTINE 21 MG/24 HR PATCH.TD24 TD SCH (09:45)
[2020-02-21] MEDS ORDERED: CEFTRIAXONE 1 GM/D5W RTU 1 GM/50 ML RTUPB IV SCH (10:00)
--- NOTE | 2020-02-21 13:45 | PDOC PROGRESS REPORT ---
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 Now needing placement. Patient was seen on morning rounds. He is found resting bed, comfortably, on room air. He was sleeping but woke easily when I said his name. He asked to be left alone and did not answer any other questions. ROS is therefore limited. No stated concerns/requests. Nursing reports patient was compliant with medications this morning but refused labs. Reason For Visit: HYPONATREMIA Physical Exam Vital Signs: Temp Pulse Resp BP Pulse Ox 98.8 F 81 20 116/62 97 02/21/20 07:59 02/20/20 10:00 02/20/20 10:00 02/20/20 10:00 02/20/20 10:00 Intake & Output 02/20/20 02/21/20 02/22/20 06:59 06:59 06:59 Intake Total 2014 1725 596 Output Total 800 2700 225 Balance 1215 -975 371 Weight 82.9 kg 82.9 kg General appearance: PRESENT: no acute distress, well-developed, well-nourished Head exam: PRESENT: atraumatic, normocephalic Eye exam: PRESENT: conjunctiva pink, EOMI, PERRLA. ABSENT: scleral icterus Mouth exam: PRESENT: moist, tongue midline Respiratory exam: PRESENT: clear to auscultation alan, symmetrical, unlabored, other - room air. ABSENT: rales, rhonchi, wheezes Cardiovascular exam: PRESENT: RRR, +S1, +S2. ABSENT: diastolic murmur, rubs, systolic murmur Vascular exam: PRESENT: normal capillary refill Gentrourinary exam: ABSENT: indwelling catheter Extremities exam: PRESENT: full ROM. ABSENT: calf tenderness, clubbing, pedal edema Musculoskeletal exam: PRESENT: ambulatory Neurological exam: PRESENT: alert, awake, oriented to person, oriented to place, CN II-XII grossly intact, other - baseline mentation. ABSENT: motor sensory d eficit Psychiatric exam: PRESENT: appropriate affect, normal mood. ABSENT: homicidal ideation, suicidal ideation Skin exam: PRESENT: dry, intact, warm. ABSENT: cyanosis, rash Results Laboratory Results: 02/20/20 09:05 02/20/20 09:05 12/25/19 12/25/19 12/25/19 13:39 13:39 13:39 Creatine Kinase 176 H Cancelled Troponin I 0.068 NT-Pro-B Natriuret Pep 12/25/19 12/26/19 21:27 05:40 Creatine Kinase Troponin I 0.127 0.096 NT-Pro-B Natriuret Pep 818 H Impressions: Chest X-Ray 12/29/19 07:00 IMPRESSION: NO ACUTE RADIOGRAPHIC FINDING IN THE CHEST. Head CT 01/19/20 00:00 IMPRESSION: MILD CHRONIC CHANGES OF ATROPHY AND MICROVASCULAR ISCHEMIA. NO ACUTE PROCESS. EVIDENCE OF ACUTE STROKE: NO. Assessment and Plan - Diagnosis (1) UTI (urinary tract infection) due to urinary indwelling catheter Qualifiers: Indwelling urinary catheter type: indwelling urethral catheter Encounter type: initial encounter Qualified Code(s): T83.511A - Infection and inflammatory reaction due to indwelling urethral catheter, initial encounter; N39.0 - Urinary tract infection, site not specified Is this a current diagnosis for this admission?: Yes Plan: UA reveals UTI WBCs 24k Urine cultures show gram positive cocci in clusteres Blood cultures not obtained; patient refusing. Hess is removed. Continue po Levaquin.; day #2 (2) Primary polydipsia Is this a current diagnosis for this admission?: Yes Plan: Free water fluid restricted to 1200ml daily. Discussed w/ nursing that he may have salt containing fluids (Pepsi, Miguelina Jovita, Tomato juice). Continue strict I&Os (3) Hyponatremia Is this a current diagnosis for this admission?: Yes Plan: Improved; Na 116-> 130 currently. Secondary to Primary polydipsia. Mental health service consultation obtained; they have reviewed his medication regiment and made recommendations with regard to his recurrent episodes of hyponatremia. Nephrology previously consulted; appreciate their assistance and recommendations. Liberalize dietary sodium; regular diet. Free water restricted to 1200 mL's daily. Continue Sodium tablet 1 gm QID Strict I&O's. (4) Schizophrenia Qualifiers: Schizophrenia type: unspecified Qualified Code(s): F20.9 - Schizophrenia, unspecified Is this a current diagnosis for this admission?: Yes Plan: - repeat CT head unremarkable Mental health services were consulted with following medication recommendations: Continue Depakote valium 5 mg Po q6 PRN; have increased to 10 mg q4hp Buspar 5MG twice a day Add Risperdal 0.25MG twice a day; have increased to 0.5 mg BID (5) Seizure Is this a current diagnosis for this admission?: Yes Plan: No further seizure activity. Seizure activity noted while in the emergency department. Received loading dose of Dilantin followed by twice daily dosing until the patient has been seizure-free for greater than 48 hours. Have discontinued. Sodium is now improved and no longer a potential cause of seizure activity (NA 132). Valporic acid level remains low; 47-> 41 We will continue seizure precautions and monitor closely. Continue Depakote; increase to 750 mg BID (6) Hypertension Is this a current diagnosis for this admission?: No Plan: Acceptable blood pressures Continue clonidine, cardizem, isosorbide Lisinopril discontinued secondary to BLANCA. (7) Acute metabolic encephalopathy Is this a current diagnosis for this admission?: Yes Plan: Likely at or near baseline Multifactorial: Hyponatremia superimposed on schizoaffective disorder, acute urinary retention Continue risperidone, buspar Sodium level gradually keila to normal; most recent level acceptable at 132.6 Trend BMP Needs nursing facility placement with locked unit Waxing and waning agitation seems to be his personal baseline mentation (8) BPH (benign prostatic hyperplasia) Qualifiers: Lower urinary tract symptom presence: symptoms absent Qualified Code(s): N40.0 - Benign prostatic hyperplasia without lower urinary tract symptoms Is this a current diagnosis for this admission?: Yes Plan: Continue tamsulosin and Proscar (9) Acute urinary retention Is this a current diagnosis for this admission?: Yes Plan: Significantly improved; now voiding spontaneously. Secondary to BPH. May also be related to anticholinergic medications. Avoid when able. Thorazine previously discontinued. Hess removed yesterday. Bladder scan q6 and report 200 ml. Will start PRN straight caths if necessary. Hopefully now that patient has had >1 month of proscar and tamulosin he will not have reoccurrence. (10) Emphysema lung Qualifiers: Emphysema type: centrilobular Qualified Code(s): J43.2 - Centrilobular emphysema Is this a current diagnosis for this admission?: Yes Plan: Stable and without exacerbation at this time. (11) Acute kidney injury Is this a current diagnosis for this admission?: Yes Plan: Resolved. Continue to avoid nephrotoxic medications. Periodic lab monitoring. (12) Dehydration Is this a current diagnosis for this admission?: Yes Plan: Resolved. (13) Tobacco abuse Is this a current diagnosis for this admission?: Yes Plan: Daily nicotine patch. (14) Pneumonia Qualifiers: Pneumonia type: due to unspecified organism Laterality: left Lung loca tion: lower lobe of lung Qualified Code(s): J18.9 - Pneumonia, unspecified organism Is this a current diagnosis for this admission?: Yes Plan: Resolved (15) Altered mental status Qualifiers: Altered mental status type: delirium Qualified Code(s): R41.0 - Disorientation, unspecified Is this a current diagnosis for this admission?: Yes Plan: Acute metabolic encephalopathy. Likely multifactorial secondary to hyponatremia, acute illness (left lower lobe pneumonia), in the setting of medication noncompliance and schizophrenia. Gradually improving; likely at, or near, baseline. Head CT is unremarkable. Disease specific management as outlined elsewhere. - Plan Summary Summary: DVT ppx: heparin Dispo: He is awaiting [facility]. SW following. He does not always participate in the plan of care but at least he seems to be doing okay as long as he is left alone. Vital signs decrease to once daily. - Time Time Spent with patient: 25-34 minutes Medications reviewed and adjusted accordingly: Yes Anticipated Discharge Disposition: Longterm Care Facility Anticipated Discharge Timeframe: when bed available
[2020-02-21] MEDS: FINASTERIDE 5 MG TABLET PO SCH (17:55)
[2020-02-21] MEDS: LEVOFLOXACIN 750 MG TABLET PO SCH (17:55)
[2020-02-21] MEDS: TAMSULOSIN HCL 0.4 MG CAP.SR.24H PO SCH (17:56)
[2020-02-21] MEDS: DIVALPROEX SODIUM 250 MG TAB.SR.24H PO SCH ×2 (22:52→23:13)
[2020-02-22] MEDS: HEPARIN SOD (PORCINE) 5,000 UNIT/ML 1 ML VIAL SUBCUT SCH ×3 (05:00→22:40)
[2020-02-22] MEDS: PANTOPRAZOLE SODIUM 40 MG TABLET.DR PO SCH ×2 (05:00→18:16)
[2020-02-22] MEDS: FLUTICASONE/VILANTEROL 200-25 MCG/DOSE IH SCH (11:57)
[2020-02-22] MEDS: DILTIAZEM HCL 180 MG CAPSULE.CR PO SCH (12:04)
[2020-02-22] MEDS: SODIUM CHLORIDE 1 GM TABLET PO SCH ×4 (12:04→22:41)
[2020-02-22] MEDS: DIVALPROEX SODIUM 250 MG TAB.SR.24H PO SCH ×2 (12:05→22:40)
[2020-02-22] MEDS: ISOSORBIDE MONONITRATE 30 MG TAB.ER.24H PO SCH (12:05)
[2020-02-22] MEDS: RISPERIDONE 0.25 MG TABLET PO SCH ×2 (12:05→22:41)
[2020-02-22] MEDS: DIVALPROEX SODIUM 500 MG TAB.SR.24H PO SCH ×2 (12:06→22:40)
[2020-02-22] MEDS: BUSPIRONE HCL 10 MG TABLET PO SCH ×2 (12:06→22:40)
[2020-02-22] MEDS: NICOTINE 21 MG/24 HR PATCH.TD24 TD SCH (12:07)
--- NOTE | 2020-02-22 12:40 | PDOC PROGRESS REPORT ---
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 Now needing placement. Patient was seen on morning rounds. He is found resting bed, comfortably, on room air. He was sleeping but woke easily when I said his name. He did not a nswer questions or talk with me. Per nursing, he has been compliant with medications, eating and drinking well, and voiding without difficulty. ROS is therefore limited. No stated concerns/requests. Reason For Visit: HYPONATREMIA Physical Exam Vital Signs: Temp Pulse Resp BP Pulse Ox 97.6 F 82 12 130/83 H 97 02/22/20 10:00 02/22/20 10:00 02/22/20 10:00 02/22/20 10:00 02/21/20 19:22 Intake & Output 02/21/20 02/22/20 02/23/20 06:59 06:59 06:59 Intake Total 1725 2078 Output Total 2700 425 Balance -975 1653 Weight 82.9 kg 82.9 kg General appearance: PRESENT: no acute distress, well-developed, well-nourished Head exam: PRESENT: atraumatic, normocephalic Eye exam: PRESENT: conjunctiva pink, EOMI, PERRLA. ABSENT: scleral icterus Mouth exam: PRESENT: moist, tongue midline Respiratory exam: PRESENT: clear to auscultation alan, symmetrical, unlabored. ABSENT: rales, rhonchi, wheezes Cardiovascular exam: PRESENT: RRR. ABSENT: diastolic murmur, rubs, systolic murmur Vascular exam: PRESENT: normal capillary refill Extremities exam: PRESENT: full ROM. ABSENT: calf tenderness, clubbing, pedal edema Musculoskeletal exam: PRESENT: ambulatory Neurological exam: PRESENT: alert, awake, oriented to person, CN II-XII grossly intact, other - at baseline. ABSENT: motor sensory deficit Psychiatric exam: PRESENT: appropriate affect, normal mood. ABSENT: homicidal ideation, suicidal ideation Skin exam: PRESENT: dry, intact, warm. ABSENT: cyanosis, rash Results Laboratory Results: 02/20/20 09:05 02/20/20 09:05 12/25/19 12/25/19 12/25/19 13:39 13:39 13:39 Creatine Kinase 176 H Cancelled Troponin I 0.068 NT-Pro-B Natriuret Pep 12/25/19 12/26/19 21:27 05:40 Creatine Kinase Troponin I 0.127 0.096 NT-Pro-B Natriuret Pep 818 H Impressions: Chest X-Ray 12/29/19 07:00 IMPRESSION: NO ACUTE RADIOGRAPHIC FINDING IN THE CHEST. Head CT 01/19/20 00:00 IMPRESSION: MILD CHRONIC CHANGES OF ATROPHY AND MICROVASCULAR ISCHEMIA. NO ACUTE PROCESS. EVIDENCE OF ACUTE STROKE: NO. Assessment and Plan - Diagnosis (1) UTI (urinary tract infection) due to urinary indwelling catheter Qualifiers: Indwelling urinary catheter type: indwelling urethral catheter Encounter type: initial encounter Qualified Code(s): T83.511A - Infection and inflammatory reaction due to indwelling urethral catheter, initial encounter; N39.0 - Urinary tract infection, site not specified Is this a current diagnosis for this admission?: Yes Plan: UA reveals UTI WBCs 24k Urine cultures show gram positive cocci in clusteres Blood cultures not obtained; patient refusing. Hess is removed. Continue po Levaquin.; day #3 (2) Primary polydipsia Is this a current diagnosis for this admission?: Yes Plan: Free water fluid restricted to 1200ml daily. Discussed w/ nursing that he may have salt containing fluids (Pepsi, Miguelina Jovita, Tomato juice). Continue strict I&Os (3) Hyponatremia Is this a current diagnosis for this admission?: Yes Plan: Improved; Na 116-> 130 currently. Secondary to Primary polydipsia. Mental health service consultation obtained; they have reviewed his medication regiment and made recommendations with regard to his recurrent episodes of hyponatremia. Nephrology previously consulted; appreciate their assistance and recommendations. Liberalize dietary sodium; regular diet. Free water restricted to 1200 mL's daily. Continue Sodium tablet 1 gm QID Strict I&O's. (4) Schizophrenia Qualifiers: Schizophrenia type: unspecified Qualified Code(s): F20.9 - Schizophrenia, unspecified Is this a current diagnosis for this admission?: Yes Plan: - repeat CT head unremarkable Mental health services were consulted with following medication recommendations: Continue Depakote valium 5 mg Po q6 PRN; have increased to 10 mg q4hp Buspar 5MG twice a day Add Risperdal 0.25MG twice a day; have increased to 0.5 mg BID (5) Seizure Is this a current diagnosis for this admission?: Yes Plan: No further seizure activity. Seizure activity noted while in the emergency department. Received loading dose of Dilantin followed by twice daily dosing until the patient has been seizure-free for greater than 48 hours. Have discontinued. Sodium is now improved and no longer a potential cause of seizure activity (NA 132). Valporic acid level remains low; 47-> 41 We will continue seizure precautions and monitor closely. Continue Depakote; have increased to 750 mg BID (6) Hypertension Is this a current diagnosis for this admission?: No Plan: Acceptable blood pressures Continue clonidine, cardizem, isosorbide Lisinopril discontinued secondary to BLANCA. (7) Acute metabolic encephalopathy Is this a current diagnosis for this admission?: Yes Plan: At baseline Multifactorial: Hyponatremia superimposed on schizoaffective disorder, acute urinary retention Continue risperidone, buspar Needs nursing facility placement with locked unit Waxing and waning agitation seems to be his personal baseline mentation (8) BPH (benign prostatic hyperplasia) Qualifiers: Lower urinary tract symptom presence: symptoms absent Qualified Code(s): N40.0 - Benign prostatic hyperplasia without lower urinary tract symptoms Is this a current diagnosis for this admission?: Yes Plan: Continue tamsulosin and Proscar (9) Acute urinary retention Is this a current diagnosis for this admission?: Yes Plan: Resolved; now voiding spontaneously. Secondary to BPH. May also be related to anticholinergic medications. Avoid when able. Thorazine previously discontinued. Hess removed; voiding spontaneously (10) Emphysema lung Qualifiers: Emphysema type: centrilobular Qualified Code(s): J43.2 - Centrilobular emphysema Is this a current diagnosis for this admission?: Yes Plan: Stable and without exacerbation at this time. (11) Acute kidney injury Is this a current diagnosis for this admission?: Yes Plan: Resolved. Continue to avoid nephrotoxic medications. Periodic lab monitoring. (12) Dehydration Is this a current diagnosis for this admission?: Yes Plan: Resolved. (13) Tobacco abuse Is this a current diagnosis for this admission?: Yes Plan: Daily nicotine patch. (14) Pneumonia Qualifiers: Pneumonia type: due to unspecified organism Laterality: left Lung location: lower lobe of lung Qualified Code(s): J18.9 - Pneumonia, unspecified organism Is this a current diagnosis for this admission?: Yes Plan: Resolved (15) Altered mental status Qualifiers: Altered mental status type: delirium Qualified Code(s): R41.0 - Disorientation, unspecified Is this a current diagnosis for this admission?: Yes Plan: Resolved. Acute metabolic encephalopathy. Likely multifactorial secondary to hyponatremia, acute illness (left lower lobe pneumonia), in the setting of medication noncompliance and schizophrenia. Head CT is unremarkable. Disease specific management as outlined elsewhere. - Plan Summary Summary: DVT ppx: heparin Dispo: He is awaiting [facility]. SW following. He does not always participate in the plan of care but at least he seems to be doing okay as long as he is left alone. Vital signs decrease to q shift - Time Time Spent with patient: 15-24 minutes Medications reviewed and adjusted accordingly: Yes Anticipated Discharge Disposition: [facility] Facility Anticipated Discharge Timeframe: when bed available
[2020-02-22] MEDS: LEVOFLOXACIN 750 MG TABLET PO SCH (18:15)
[2020-02-22] MEDS: TAMSULOSIN HCL 0.4 MG CAP.SR.24H PO SCH (18:15)
[2020-02-22] MEDS: FINASTERIDE 5 MG TABLET PO SCH (18:16)
[2020-02-23] MEDS: HEPARIN SOD (PORCINE) 5,000 UNIT/ML 1 ML VIAL SUBCUT SCH ×3 (05:22→21:22)
[2020-02-23] MEDS: PANTOPRAZOLE SODIUM 40 MG TABLET.DR PO SCH ×2 (05:23→18:41)
[2020-02-23] MEDS: NICOTINE 21 MG/24 HR PATCH.TD24 TD SCH (09:23)
[2020-02-23] MEDS: FLUTICASONE/VILANTEROL 200-25 MCG/DOSE IH SCH (09:23)
[2020-02-23] MEDS: DIVALPROEX SODIUM 500 MG TAB.SR.24H PO SCH ×2 (09:31→22:38)
[2020-02-23] MEDS: DILTIAZEM HCL 180 MG CAPSULE.CR PO SCH (09:31)
[2020-02-23] MEDS: DIVALPROEX SODIUM 250 MG TAB.SR.24H PO SCH ×2 (09:31→22:37)
[2020-02-23] MEDS: SODIUM CHLORIDE 1 GM TABLET PO SCH ×4 (09:32→22:37)
[2020-02-23] MEDS: BUSPIRONE HCL 10 MG TABLET PO SCH ×2 (09:32→22:37)
[2020-02-23] MEDS: RISPERIDONE 0.25 MG TABLET PO SCH ×2 (09:36→22:49)
[2020-02-23] MEDS ORDERED: AMOXICILLIN TR/POT CLAVULANATE 500-125 MG TAB PO SCH (10:00)
--- NOTE | 2020-02-23 10:55 | PDOC PROGRESS REPORT ---
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 Now needing placement. Patient was seen on morning rounds. He is found resting bed, comfortably, on room air. He was sitting up to the edge of the bed preparing his coffee. He asks me how a.m. and attempts to make a joke with me. I asked how he is feeling, he stopped smoking I contacted no longer will respond to me. He does continue to drink his coffee. ROS is therefore limited. No stated concerns/requests. Per nursing, Patient continues to have adequate p.o. intake been largely compliant with his oral medications. No difficulty voiding. Reason For Visit: HYPONATREMIA Physical Exam Vital Signs: Temp Pulse Resp BP Pulse Ox 97.8 F 73 15 124/73 100 02/23/20 08:00 02/23/20 08:00 02/23/20 08:00 02/23/20 08:00 02/23/20 08:00 Intake & Output 02/22/20 02/23/20 02/24/20 06:59 06:59 06:59 Intake Total 2078 1635 Output Total 425 1075 Balance 1653 560 Weight 82.9 kg 82.5 kg General appearance: PRESENT: no acute distress, well-developed, well-nourished Head exam: PRESENT: atraumatic, normocephalic Eye exam: PRESENT: conjunctiva pink, EOMI, PERRLA. ABSENT: scleral icterus Mouth exam: PRESENT: moist, tongue midline Respiratory exam: PRESENT: clear to auscultation alan, symmetrical, unlabored, other. ABSENT: rales, rhonchi, wheezes Cardiovascular exam: PRESENT: RRR Vascular exam: PRESENT: normal capillary refill Extremities exam: PRESENT: full ROM. ABSENT: calf tenderness, clubbing, pedal edema Musculoskeletal exam: PRESENT: ambulatory Neurological exam: PRESENT: alert, awake, oriented to person, CN II-XII grossly intact, other - Patient. ABSENT: motor sensory deficit Psychiatric exam: PRESENT: appropriate affect, normal mood. ABSENT: homicidal ideation, suicidal ideation Skin exam: PRESENT: dry, intact, warm. ABSENT: cyanosis, rash Results Laboratory Results: 02/20/20 09:05 02/20/20 09:05 02/20/20 09:30 Catheterized Urine Urine Culture - Final Staphylococcus Aureus 12/25/19 12/25/19 12/25/19 13:39 13:39 13:39 Creatine Kinase 176 H Cancelled Troponin I 0.068 NT-Pro-B Natriuret Pep 12/25/19 12/26/19 21:27 05:40 Creatine Kinase Troponin I 0.127 0.096 NT-Pro-B Natriuret Pep 818 H Impressions: Chest X-Ray 12/29/19 07:00 IMPRESSION: NO ACUTE RADIOGRAPHIC FINDING IN THE CHEST. Head CT 01/19/20 00:00 IMPRESSION: MILD CHRONIC CHANGES OF ATROPHY AND MICROVASCULAR ISCHEMIA. NO ACUTE PROCESS. EVIDENCE OF ACUTE STROKE: NO. Assessment and Plan - Diagnosis (1) UTI (urinary tract infection) due to urinary indwelling catheter Qualifiers: Indwelling urinary catheter type: indwelling urethral catheter Encounter type: initial encounter Qualified Code(s): T83.511A - Infection and inflammatory reaction due to indwelling urethral catheter, initial encounter; N39.0 - Urinary tract infection, site not specified Is this a current diagnosis for this admission?: Yes Plan: UA reveals UTI WBCs 24k Urine cultures show staph aureus resistant to fluoroquinolones. Blood cultures not obtained; patient refusing. Hess is removed. DC Levaquin; start Augmentin 875 twice daily. Unfortunately, patient continues to refuse lab work. Have not been able to obtain repeat CBC or blood cultures. However, his vital signs are stable without fever and patient largely appears to be asymptomatic. Should patient develop UTI symptoms or fever, will need to provide some sedation and obtain further lab work. Will plan to repeat urinalysis in 48 hrs to assess response. (2) Primary polydipsia Is this a current diagnosis for this admission?: Yes Plan: Free water fluid restricted to 1200ml daily. Discussed w/ nursing that he may have salt containing fluids (Pepsi, Miguelina Jovita, Tomato juice). Continue strict I&Os (3) Hyponatremia Is this a current diagnosis for this admission?: Yes Plan: Improved; Na 116-> 130 currently. Secondary to Primary polydipsia. Mental health service consultation obtained; they have reviewed his medication regiment and made recommendations with regard to his recurrent episodes of hyp onatremia. Nephrology previously consulted; appreciate their assistance and recommendations. Liberalize dietary sodium; regular diet. Free water restricted to 1200 mL's daily. Continue Sodium tablet 1 gm QID Strict I&O's. (4) Schizophrenia Qualifiers: Schizophrenia type: unspecified Qualified Code(s): F20.9 - Schizophrenia, unspecified Is this a current diagnosis for this admission?: Yes Plan: - repeat CT head unremarkable Mental health services were consulted with following medication recommendations: Continue Depakote valium 5 mg Po q6 PRN; have increased to 10 mg q4hp Buspar 5MG twice a day Add Risperdal 0.25MG twice a day; have increased to 0.5 mg BID (5) Seizure Is this a current diagnosis for this admission?: Yes Plan: No further seizure activity. Seizure activity noted while in the emergency department. Received loading dose of Dilantin followed by twice daily dosing until the patient has been seizure-free for greater than 48 hours. Have discontinued. Sodium is now improved and no longer a potential cause of seizure activity (NA 132). Valporic acid level remains low; 47-> 41 We will continue seizure precautions and monitor closely. Continue Depakote; have increased to 750 mg BID (6) Hypertension Is this a current diagnosis for this admission?: No Plan: Acceptable blood pressures Continue clonidine, cardizem, isosorbide Lisinopril discontinued secondary to BLANCA. (7) Acute metabolic encephalopathy Is this a current diagnosis for this admission?: Yes Plan: At baseline Multifactorial: Hyponatremia superimposed on schizoaffective disorder, acute urinary retention Continue risperidone, buspar Needs nursing facility placement with locked unit Waxing and waning agitation seems to be his personal baseline mentation (8) BPH (benign prostatic hyperplasia) Qualifiers: Lower urinary tract symptom presence: symptoms absent Qualified Code(s): N40.0 - Benign prostatic hyperplasia without lower urinary tract symptoms Is this a current diagnosis for this admission?: Yes Plan: Continue tamsulosin and Proscar (9) Acute urinary retention Is this a current diagnosis for this admission?: Yes Plan: Resolved; now voiding spontaneously. Secondary to BPH. May also be related to anticholinergic medications. Avoid when able. Thorazine previously discontinued. Hess removed; voiding spontaneously (10) Emphysema lung Qualifiers: Emphysema type: centrilobular Qualified Code(s): J43.2 - Centrilobular emphysema Is this a current diagnosis for this admission?: Yes Plan: Stable and without exacerbation at this time. (11) Acute kidney injury Is this a current diagnosis for this admission?: Yes Plan: Resolved. Continue to avoid nephrotoxic medications. Periodic lab monitoring. (12) Dehydration Is this a current diagnosis for this admission?: Yes Plan: Resolved. (13) Tobacco abuse Is this a current diagnosis for this admission?: Yes Plan: Daily nicotine patch. (14) Pneumonia Qualifiers: Pneumonia type: due to unspecified organism Laterality: left Lung location: lower lobe of lung Qualified Code(s): J18.9 - Pneumonia, unspecified organism Is this a current diagnosis for this admission?: Yes Plan: Resolved (15) Altered mental status Qualifiers: Altered mental status type: delirium Qualified Code(s): R41.0 - Disorientation, unspecified Is this a current diagnosis for this admission?: Yes Plan: Resolved. Acute metabolic encephalopathy. Likely multifactorial secondary to hyponatremia, acute illness (left lower lobe pneumonia), in the setting of medication noncompliance and schizophrenia. Head CT is unremarkable. Disease specific management as outlined elsewhere. - Plan Summary Summary: DVT ppx: heparin Dispo: He is awaiting [facility]. SW following. He does not always participate in the plan of care but at least he seems to be doing okay as long as he is left alone. Vital signs decrease to q shift - Time Time Spent with patient: 15-24 minutes Anticipated Discharge Disposition: Senior Living Care Facility Anticipated Discharge Timeframe: when bed available
[2020-02-23] MEDS: FINASTERIDE 5 MG TABLET PO SCH (18:41)
[2020-02-23] MEDS: TAMSULOSIN HCL 0.4 MG CAP.SR.24H PO SCH (18:41)
[2020-02-23] MEDS: AMOXICILLIN TR/POT CLAVULANATE 875-125 MG TAB PO SCH (22:38)
[2020-02-24] MEDS: HEPARIN SOD (PORCINE) 5,000 UNIT/ML 1 ML VIAL SUBCUT SCH ×3 (05:01→21:20)
[2020-02-24] MEDS: PANTOPRAZOLE SODIUM 40 MG TABLET.DR PO SCH (05:01)
[2020-02-24] MEDS: NICOTINE 21 MG/24 HR PATCH.TD24 TD SCH (09:21)
[2020-02-24] MEDS: FLUTICASONE/VILANTEROL 200-25 MCG/DOSE IH SCH (09:21)
[2020-02-24] MEDS: AMOXICILLIN TR/POT CLAVULANATE 875-125 MG TAB PO SCH (09:25)
[2020-02-24] MEDS: RISPERIDONE 0.25 MG TABLET PO SCH ×2 (09:26→21:10)
[2020-02-24] MEDS: BUSPIRONE HCL 10 MG TABLET PO SCH ×2 (09:26→21:08)
--- NOTE | 2020-02-24 10:27 | PDOC PROGRESS REPORT ---
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 Now needing placement. Patient was seen on morning rounds. He is found ambulating in the halls independently. He did not want to talk with me today; tells me to go away. He does appear to be comfortable and is not noted to be in any acute distress. ROS is therefore limited. No stated concerns/requests. Per nursing, Patient continues to have adequate p.o. intake and is voiding without difficulty. Intermittent compliance with medications. Has been a bit agitated overnight. Reason For Visit: HYPONATREMIA Physical Exam Vital Signs: Temp Pulse Resp BP Pulse Ox 98.2 F 69 16 132/85 H 96 02/23/20 22:13 02/23/20 22:13 02/23/20 22:13 02/23/20 22:13 02/23/20 22:13 Intake & Output 02/23/20 02/24/20 02/25/20 06:59 06:59 06:59 Intake Total 1635 1811 Output Total 1075 620 Balance 560 1191 Weight 82.5 kg 81.7 kg General appearance: PRESENT: no acute distress, well-developed, well-nourished Head exam: PRESENT: atraumatic, normocephalic Eye exam: PRESENT: conjunctiva pink, EOMI, PERRLA. ABSENT: scleral icterus Mouth exam: PRESENT: moist, tongue midline Teeth exam: PRESENT: poor dentation Extremities exam: PRESENT: full ROM. ABSENT: calf tenderness, clubbing, pedal edema Musculoskeletal exam: PRESENT: ambulatory Neurological exam: PRESENT: alert, awake, oriented to person, oriented to place, CN II-XII grossly intact, other - at baseline. ABSENT: motor sensory deficit Psychiatric exam: PRESENT: agitated. ABSENT: homicidal ideation, suicidal ideation Skin exam: PRESENT: dry, intact, warm. ABSENT: cyanosis, rash Additional comments: Exam limited r/t patient cooperation. Results Laboratory Results: 02/20/20 09:05 02/20/20 09:05 12/25/19 12/25/19 12/25/19 13:39 13:39 13:39 Creatine Kinase 176 H Cancelled Troponin I 0.068 NT-Pro-B Natriuret Pep 12/25/19 12/26/19 21:27 05:40 Creatine Kinase Troponin I 0.127 0.096 NT-Pro-B Natriuret Pep 818 H Impressions: Chest X-Ray 12/29/19 07:00 IMPRESSION: NO ACUTE RADIOGRAPHIC FINDING IN THE CHEST. Head CT 01/19/20 00:00 IMPRESSION: MILD CHRONIC CHANGES OF ATROPHY AND MICROVASCULAR ISCHEMIA. NO ACUTE PROCESS. EVIDENCE OF ACUTE STROKE: NO. Assessment and Plan - Diagnosis (1) UTI (urinary tract infection) due to urinary indwelling catheter Qualifiers: Indwelling urinary catheter type: indwelling urethral catheter Encounter type: initial encounter Qualified Code(s): T83.511A - Infection and inflammatory reaction due to indwelling urethral catheter, initial encounter; N39.0 - Urinary tract infection, site not specified Is this a current diagnosis for this admission?: Yes Plan: UA reveals UTI WBCs 24k Urine cultures show staph aureus resistant to fluoroquinolones. Blood cultures not obtained; patient refusing. Hess is removed. DC Levaquin; start Augmentin 875 twice daily; Day #2/14 Unfortunately, patient continues to refuse lab work. Have not been able to obtain repeat CBC or blood cultures. However, his vital signs are stable without fever and patient largely appears to be asymptomatic. Should patient develop UTI symptoms or fever, will need to provide some sedation and obtain further lab work. Will plan to repeat urinalysis in the morning to assess response. (2) Primary polydipsia Is this a current diagnosis for this admission?: Yes Plan: Free water fluid restricted to 1200ml daily. Discussed w/ nursing that he may have salt containing fluids (Pepsi, Miguelina Jovita, Tomato juice). Continue strict I&Os (3) Hyponatremia Is this a current diagnosis for this admission?: Yes Plan: Improved; Na 116-> 130 currently. Secondary to Primary polydipsia. Mental health service consultation obtained; they have reviewed his medication regiment and made recommendations with regard to his recurrent episodes of hyponatremia. Nephrology previously consulted; appreciate their assistance and recommendations. Liberalize dietary sodium; regular diet. Free water restricted to 1200 mL's daily. Continue Sodium tablet 1 gm QID Strict I&O's. (4) Schizophrenia Qualifiers: Schizophrenia type: unspecified Qualified Code(s): F20.9 - Schizophrenia, unspecified Is this a current diagnosis for this admission?: Yes Plan: - repeat CT head unremarkable Mental health services were consulted with following medication recommendations: Continue Depakote valium 5 mg Po q6 PRN; have increased to 10 mg q4hp Buspar 5MG twice a day Add Risperdal 0.25MG twice a day; have increased to 0.5 mg BID (5) Seizure Is this a current diagnosis for this admission?: Yes Plan: No further seizure activity. Seizure activity noted while in the emergency department. Received loading dose of Dilantin followed by twice daily dosing until the patient has been seizure-free for greater than 48 hours. Have discontinued. Sodium is now improved and no longer a potential cause of seizure activity (NA 132). Valporic acid level remains low; 47-> 41 We will continue seizure precautions and monitor closely. Continue Depakote; have increased to 750 mg BID (6) Hypertension Is this a current diagnosis for this admission?: No Plan: Acceptable blood pressures Continue clonidine, cardizem, isosorbide Lisinopril discontinued secondary to BLANCA. (7) Acute metabolic encephalopathy Is this a current diagnosis for this admission?: Yes Plan: At baseline Multifactorial: Hyponatremia superimposed on schizoaffective disorder, acute urinary retention Continue risperidone, buspar Needs nursing facility placement with locked unit Waxing and waning agitation seems to be his personal baseline mentation (8) BPH (benign prostatic hyperplasia) Qualifiers: Lower urinary tract symptom presence: symptoms absent Qualified Code(s): N40.0 - Benign prostatic hyperplasia without lower urinary tract symptoms Is this a current diagnosis for this admission?: Yes Plan: Continue tamsulosin and Proscar (9) Acute urinary retention Is this a current diagnosis for this admission?: Yes Plan: Resolved; now voiding spontaneously. Secondary to BPH. May also be related to anticholinergic medications. Avoid when able. Thorazine previously discontinued. Hess removed; voiding spontaneously (10) Emphysema lung Qualifiers: Emphysema type: centrilobular Qualified Code(s): J43.2 - Centrilobular emphysema Is this a current diagnosis for this admission?: Yes Plan: Stable and without exacerbation at this time. (11) Acute kidney injury Is this a current diagnosis for this admission?: Yes Plan: Resolved. Continue to avoid nephrotoxic medications. Periodic lab monitoring. (12) Dehydration Is this a current diagnosis for this admission?: Yes Plan: Resolved. (13) Tobacco abuse Is this a current diagnosis for this admission?: Yes Plan: Daily nicotine patch. (14) Pneumonia Qualifiers: Pneumonia type: due to unspecified organism Laterality: left Lung location: lower lobe of lung Qualified Code(s): J18.9 - Pneumonia, unspecified organism Is this a current diagnosis for this admission?: Yes Plan: Resolved (15) Altered mental status Qualifiers: Altered mental status type: delirium Qualified Code(s): R41.0 - Disorientation, unspecified Is this a current diagnosis for this admission?: Yes Plan: Resolved. Acute metabolic encephalopathy. Likely multifactorial secondary to hyponatremia, acute illness (left lower lobe pneumonia), in the setting of medication noncompliance and schizophrenia. Head CT is unremarkable. Disease specific management as outlined elsewhere. - Plan Summary Summary: DVT ppx: heparin Dispo: He is awaiting placement [facility]. SW following. He does not always participate in the plan of care but at least he seems to be doing okay as long as he is left alone. Vital signs decrease to q shift - Time Time Spent with patient: 15-24 minutes Medications reviewed and adjusted accordingly: Yes Anticipated Discharge Disposition: [facility] Care Facility Anticipated Discharge Timeframe: when bed available
[2020-02-24] MEDS: DIVALPROEX SODIUM 250 MG TAB.SR.24H PO SCH ×2 (12:47→21:09)
[2020-02-24] MEDS: DIVALPROEX SODIUM 500 MG TAB.SR.24H PO SCH ×2 (12:47→21:08)
[2020-02-24] MEDS: SODIUM CHLORIDE 1 GM TABLET PO SCH ×4 (12:47→21:10)
[2020-02-24] MEDS: DILTIAZEM HCL 180 MG CAPSULE.CR PO SCH (12:47)
[2020-02-24] MEDS ORDERED: HALOPERIDOL LACTATE INJ 5 MG/1 ML VIAL IV ONE (14:00)
--- NOTE | 2020-02-24 17:36 | Progress Note ---
Provider Note Provider Note: [facility] teleconsultation. Patient not examined. Chart reviewed. Patient is a 59-year-old male with a history of schizoaffective disorder and polydipsia with resulting hyponatremia who was admitted for the same as well as pneumonia. He has been awaiting placement. He had a Hess catheter in place for strict I/O's and on 02/18 and 02/19 the nursing noted some foul smell to his urine and thus a UA and urine culture was obtained as well as a CBC which demonstrated a WBC of 24,000 and pyuria in his urine with greater than 100,000 CFU's of MSSA. The patient has been empirically started on Levaquin but the MSSA is resistant to this. He has been completely afebrile. He does have a baseline leukocytosis but it is less than 20. Patient otherwise appears to lack complaints but is a poor historian due to mental illness. He has been refusing blood cultures and repeat CBC. Assessment/Recommendations: MSSA bacteriuria from a catheterized specimen. It appears as though this is largely asymptomatic catheter associated bacteriuria. Foul-smelling urine is not an indication of a UTI. Urinalysis is not surprising given indwelling Hess; the incidence of pyuria is 100% in this context. Given the lack of fever and lack of complaints the MSSA may represent catheter colonization. Patient is unlikely to comply with a I/O cath specimen but this would be ideal. It is reasonable to prescribe 7 days of Augmentin 875/125 mg p.o. twice daily. His creatinine has trended up some alth ough overall trend is difficult as he has been refusing blood work. Ideally would recommend holding antibiotics and repeating a clean urine sample without a catheter, but unclear if patient will comply. In the absence of this it is reasonable to Rx Augmentin as outlined above. The possibility of hospital-acquired MSSA bacteremia with subsequent seeding of the renal parenchyma is possible however would expect the patient to be febrile or more systemically ill. Would err in doing less given his stability. He could potentially have several other explanations for a leukocytosis as this is bas aldo for him to some extent. It does not appear as though patient is having diarrhea but would check C. difficile if so.
[2020-02-24] MEDS ORDERED: LORAZEPAM INJ 2 MG/1 ML VIAL IM ONE (17:53)
[2020-02-24] MEDS ORDERED: CEFAZOLIN 2 GM/D5W RTU 2 GM/50 ML RTUPB IV SCH (18:00)
[2020-02-24] MEDS: FINASTERIDE 5 MG TABLET PO SCH (18:11)
[2020-02-24] MEDS: TAMSULOSIN HCL 0.4 MG CAP.SR.24H PO SCH (18:11)
[2020-02-24 20:28] LABS: HEMATOCRIT 33.4 % (37.9-51.0); MEAN CORPUSCULAR HEMOGLOBIN 31.4 pg (27.0-33.4); MEAN CORPUSCULAR HGB CONC 36.1 g/dL (32.0-36.0); MEAN CORPUSCULAR VOLUME 87 fl (80-97); PLATELET COUNT 347 10^3/uL (150-450); RED BLOOD COUNT 3.84 10^6/uL (4.35-5.55); RED CELL DISTRIBUTION WIDTH 13.7 % (11.5-14.0); WHITE BLOOD COUNT 14.8 10^3/uL (4.0-10.5)
[2020-02-24] MEDS: CEFAZOLIN SODIUM 2 GM in DEXTROSE 5%-WATER 100 ML IV SCH (20:29)
[2020-02-24 20:41] LABS: ALBUMIN 3.3 g/dL (3.5-5.0); ALKALINE PHOSPHATASE 72 U/L (38-126); ANION GAP 12 (5-19); ASPARTATE AMINO TRANSFERASE 17 U/L (17-59); BILIRUBIN,DIRECT 0.1 mg/dL (0.0-0.4); BILIRUBIN,TOTAL 0.2 mg/dL (0.2-1.3); BLOOD UREA NITROGEN 17 mg/dL (7-20); CARBON DIOXIDE 22 mmol/L (22-30); CHLORIDE 93 mmol/L (98-107); GLUCOSE 139 mg/dL (75-110); POTASSIUM 4.3 mmol/L (3.6-5.0); TOTAL PROTEIN 6.7 g/dL (6.3-8.2)
[2020-02-24 20:44] LABS: ABSOLUTE LYMPHOCYTES# (MANUAL) 1.8 10^3/uL (0.5-4.7); ABSOLUTE MONOCYTES # (MANUAL) 0.9 10^3/uL (0.1-1.4); BAND NEUTROPHILS % (MANUAL) 1 % (3-5); BASOPHILS % (MANUAL) 0 % (0-2); EOSINOPHILS % (MANUAL) 6 % (0-6); LYMPHOCYTES % (MANUAL) 12 % (13-45); METAMYELOCYTES % (MANUAL) 2 % (0-1); MONOCYTES % (MANUAL) 6 % (3-13); SEGMENTED NEUTROPHILS % (MAN) 73 % (42-78); TOTAL CELLS COUNTED 100
[2020-02-24 20:46] LABS: OVALOCYTES SLIGHT; PLATELET COMMENT ADEQUATE; POIKILOCYTOSIS SLIGHT
[2020-02-25] MEDS: CEFAZOLIN SODIUM 2 GM in DEXTROSE 5%-WATER 100 ML IV SCH ×3 (00:13→11:59)
[2020-02-25] MEDS: HEPARIN SOD (PORCINE) 5,000 UNIT/ML 1 ML VIAL SUBCUT SCH (05:44)
[2020-02-25] MEDS: NICOTINE 21 MG/24 HR PATCH.TD24 TD SCH (10:09)
[2020-02-25] MEDS: RISPERIDONE 0.25 MG TABLET PO SCH ×2 (12:01→22:48)
[2020-02-25] MEDS: BUSPIRONE HCL 10 MG TABLET PO SCH ×2 (12:01→22:47)
[2020-02-25] MEDS: DIVALPROEX SODIUM 250 MG TAB.SR.24H PO SCH ×2 (12:04→22:51)
[2020-02-25] MEDS: SODIUM CHLORIDE 1 GM TABLET PO SCH ×4 (12:05→22:48)
[2020-02-25] MEDS: DILTIAZEM HCL 180 MG CAPSULE.CR PO SCH (12:05)
[2020-02-25] MEDS: DIVALPROEX SODIUM 500 MG TAB.SR.24H PO SCH ×2 (12:05→22:50)
--- NOTE | 2020-02-25 16:18 | PDOC PROGRESS REPORT ---
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 Now needing placement. 02/25/2020. Saw patient twice this morning, in the morning patient too somnolent to provide any history, saw patient again in the afternoon, patient arousable but falls asleep readily, again does not provide much history, as per primary nurse patient was agitated yesterday refusing to have her his blood drawn, a dose of IM Haldol was given which was not effective, following that patient was given a dose of IM Ativan, as per primary nurse patient did have his breakfast and lunch today, he is taking his medication. Reason For Visit: HYPONATREMIA Physical Exam Vital Signs: Temp Pulse Resp BP Pulse Ox 98.6 F 87 17 143/93 H 100 02/25/20 10:00 02/25/20 07:13 02/25/20 07:13 02/25/20 07:13 02/25/20 07:13 Intake & Output 02/24/20 02/25/20 02/26/20 06:59 06:59 06:59 Intake Total 1811 2600 775 Output Total 620 400 Balance 1191 2200 775 Weight 81.7 kg 80.8 kg 80.8 kg General appearance: PRESENT: no acute distress, well-developed, well-nourished, other - Somnolent, arousable, moves all extremities. Head exam: PRESENT: atraumatic, normocephalic Respiratory exam: PRESENT: clear to auscultation alan. ABSENT: rales, rhonchi, wheezes Cardiovascular exam: PRESENT: RRR. ABSENT: diastolic murmur, rubs, systolic murmur Neurological exam: PRESENT: other - Somnolent but arousable, moves all extremities. Results Laboratory Results: 02/24/20 20:05 02/24/20 20:05 02/24/20 02/24/20 20:05 20:05 WBC 14.8 H RBC 3.84 L Hgb 12.0 L Hct 33.4 L MCV 87 MCH 31.4 MCHC 36.1 H RDW 13.7 Plt Count 347 Seg Neutrophils % Not Reportable Sodium 127.2 L Potassium 4.3 Chloride 93 L Carbon Dioxide 22 Anion Gap 12 BUN 17 Creatinine 1.32 H Est GFR ( Amer) > 60 Glucose 139 H Calcium 9.0 Total Bilirubin 0.2 AST 17 Alkaline Phosphatase 72 Total Protein 6.7 Albumin 3.3 L 12/25/19 12/25/19 12/25/19 13:39 13:39 13:39 Creatine Kinase 176 H Cancelled Troponin I 0.068 NT-Pro-B Natriuret Pep 12/25/19 12/26/19 21:27 05:40 Creatine Kinase Troponin I 0.127 0.096 NT-Pro-B Natriuret Pep 818 H Impressions: Chest X-Ray 12/29/19 07:00 IMPRESSION: NO ACUTE RADIOGRAPHIC FINDING IN THE CHEST. Head CT 01/19/20 00:00 IMPRESSION: MILD CHRONIC CHANGES OF ATROPHY AND MICROVASCULAR ISCHEMIA. NO ACUTE PROCESS. EVIDENCE OF ACUTE STROKE: NO. Assessment and Plan - Diagnosis (1) Acute metabolic encephalopathy Is this a current diagnosis for this admission?: Yes Plan: At baseline Multifactorial: Hyponatremia superimposed on schizoaffective disorder, acute urinary retention Continue risperidone, buspar Needs nursing facility placement with locked unit Waxing and waning agitation seems to be his personal baseline mentation (2) Acute urinary retention Is this a current diagnosis for this admission?: Yes Plan: Resolved; now voiding spontaneously. Secondary to BPH. May also be related to anticholinergic medications. Avoid when able. Thorazine previously discontinued. Hess removed; voiding spontaneously (3) BPH (benign prostatic hyperplasia) Qualifiers: Lower urinary tract symptom presence: symptoms absent Qualified Code(s): N40.0 - Benign prostatic hyperplasia without lower urinary tract symptoms Is this a current diagnosis for this admission?: Yes Plan: Continue tamsulosin and Proscar (4) Dehydration Is this a current diagnosis for this admission?: Yes Plan: Resolved. (5) Emphysema lung Qualifiers: Emphysema type: centrilobular Qualified Code(s): J43.2 - Centrilobular emphysema Is this a current diagnosis for this admission?: Yes Plan: Stable and without exacerbation at this time. (6) Hypertension Is this a current diagnosis for this admission?: No Plan: Acceptable blood pressures Continue clonidine, cardizem, isosorbide Lisinopril discontinued secondary to BLANCA. (7) Hyponatremia Is this a current diagnosis for this admission?: Yes Plan: Improved; Na 116-> 130 currently. Secondary to Primary polydipsia. Mental health service consultation obtained; they have reviewed his medication regiment and made recommendations with regard to his recurrent episodes of hyponatremia. Nephrology previously consulted; appreciate their assistance and recommendations. Liberalize dietary sodium; regular diet. Free water restricted to 1200 mL's daily. Continue Sodium tablet 1 gm QID Strict I&O's. (8) Pneumonia Qualifiers: Pneumonia type: due to unspecified organism Laterality: left Lung location: lower lobe of lung Qualified Code(s): J18.9 - Pneumonia, unspecified organism Is this a current diagnosis for this admission?: Yes Plan: Resolved (9) Primary polydipsia Is this a current diagnosis for this admission?: Yes Plan: Free water fluid restricted to 1200ml daily. Discussed w/ nursing that he may have salt containing fluids (Pepsi, Miguelina Jovita, Tomato juice). Continue strict I&Os (10) Schizophrenia Qualifiers: Schizophrenia type: unspecified Qualified Code(s): F20.9 - Schizophrenia, unspecified Is this a current diagnosis for this admission?: Yes Plan: - repeat CT head unremarkable Mental health services were consulted with following medication recommendations: Continue Depakote valium 5 mg Po q6 PRN; have increased to 10 mg q4hp Buspar 5MG twice a day Add Risperdal 0.25MG twice a day; have increased to 0.5 mg BID (11) Seizure Is this a current diagnosis for this admission?: Yes Plan: No further seizure activity. Seizure activity noted while in the emergency department. Received loading dose of Dilantin followed by twice daily dosing until the patient has been seizure-free for greater than 48 hours. Have discontinued. Sodium is now improved and no longer a potential cause of seizure activity (NA 132). Valporic acid level remains low; 47-> 41 We will continue seizure precautions and monitor closely. Continue Depakote; have increased to 750 mg BID (12) Tobacco abuse Is this a current diagnosis for this admission?: Yes Plan: Daily nicotine patch. (13) UTI (urinary tract infection) due to urinary indwelling catheter Qualifiers: Indwelling urinary catheter type: indwelling urethral catheter Encounter type: initial encounter Qualified Code(s): T83.511A - Infection and inflammatory reaction due to indwelling urethral catheter, initial encounter; N39.0 - Urinary tract infection, site not specified Is this a current diagnosis for this admission?: Yes Plan: UA reveals UTI WBCs 24k Urine cultures show staph aureus resistant to fluoroquinolones. Blood cultures not obtained; patient refusing. Hess is removed. DC Levaquin; start Augmentin 875 twice daily; Day #2 Unfortunately, patient continues to refuse lab work. Have not been able to obtain repeat CBC or blood cultures. However, his vital signs are stable without fever and patient largely appears to be asymptomatic. Should patient develop UTI symptoms or fever, will need to provide some sedation and obtain further lab work. Will plan to repeat urinalysis in the morning to assess response. - Plan Summary Summary: DVT ppx: heparin Dispo: He is awaiting [facility]. SW following. He does not always participate in the plan of care but at least he seems to be doing okay as long as he is left alone. Vital signs decrease to q shift - Time Time Spent with patient: 25-34 minutes Medications reviewed and adjusted accordingly: Yes Anticipated [facility]charge [facility] Anticipated Discharge Timeframe: when bed available
[2020-02-25] MEDS: TAMSULOSIN HCL 0.4 MG CAP.SR.24H PO SCH (17:04)
[2020-02-25] MEDS: FINASTERIDE 5 MG TABLET PO SCH (17:04)
[2020-02-25] MEDS: AMOXICILLIN TR/POT CLAVULANATE 875-125 MG TAB PO SCH (22:49)
[2020-02-26] MEDS: DIVALPROEX SODIUM 500 MG TAB.SR.24H PO SCH (09:12)
[2020-02-26] MEDS: SODIUM CHLORIDE 1 GM TABLET PO SCH ×3 (09:12→17:03)
[2020-02-26] MEDS: DIVALPROEX SODIUM 250 MG TAB.SR.24H PO SCH (09:12)
[2020-02-26] MEDS: RISPERIDONE 0.25 MG TABLET PO SCH (09:12)
[2020-02-26] MEDS: DILTIAZEM HCL 180 MG CAPSULE.CR PO SCH (09:12)
[2020-02-26] MEDS: BUSPIRONE HCL 10 MG TABLET PO SCH (09:12)
[2020-02-26] MEDS: AMOXICILLIN TR/POT CLAVULANATE 875-125 MG TAB PO SCH (09:12)
[2020-02-26] MEDS: TAMSULOSIN HCL 0.4 MG CAP.SR.24H PO SCH (17:03)
[2020-02-26] MEDS: FINASTERIDE 5 MG TABLET PO SCH (17:03)
--- NOTE | 2020-02-26 18:46 | PDOC PROGRESS REPORT ---
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 Now needing placement. 02/25/2020. Saw patient twice this morning, in the morning patient too somnolent to provide any history, saw patient again in the afternoon, patient arousable but falls asleep readily, again does not provide much history, as per primary nurse patient was agitated yesterday refusing to have her his blood drawn, a dose of IM Haldol was given which was not effective, following that patient was given a dose of IM Ativan, as per primary nurse patient did have his breakfast and lunch today, he is taking his medication. 02/26/2020. No acute events overnight. Patient has not been agitated. Still refusing blood draws. Patient this morning, comfortably seen with no apparent distress. Cooperative with physical examination. Reason For Visit: HYPONATREMIA Physical Exam Vital Signs: Temp Pulse Resp BP Pulse Ox 98.6 F 82 19 169/96 H 100 02/26/20 10:00 02/26/20 07:56 02/26/20 07:56 02/26/20 07:56 02/26/20 07:56 Intake & Output 02/25/20 02/26/20 02/27/20 06:59 06:59 06:59 Intake Total 2600 2490 1650 Output Total 400 4 Balance 2200 2490 1646 Weight 80.8 kg 79.1 kg 79 kg General appearance: PRESENT: no acute distress, well-developed, well-nourished Head exam: PRESENT: atraumatic, normocephalic Respiratory exam: PRESENT: clear to auscultation alan. ABSENT: rales, rhonchi, wheezes Cardiovascular exam: PRESENT: RRR. ABSENT: diastolic murmur, rubs, systolic murmur GI/Abdominal exam: PRESENT: normal bowel sounds, soft. ABSENT: distended, guarding, mass, organolmegaly, rebound, tenderness Neurological exam: PRESENT: alert, awake, oriented to person, CN II-XII grossly intact. ABSENT: motor sensory deficit Results Laboratory Results: 02/24/20 20:05 02/24/20 20:05 12/25/19 12/25/19 12/25/19 13:39 13:39 13:39 Creatine Kinase 176 H Cancelled Troponin I 0.068 NT-Pro-B Natriuret Pep 12/25/19 12/26/19 21:27 05:40 Creatine Kinase Troponin I 0.127 0.096 NT-Pro-B Natriuret Pep 818 H Impressions: Chest X-Ray 12/29/19 07:00 IMPRESSION: NO ACUTE RADIOGRAPHIC FINDING IN THE CHEST. Head CT 01/19/20 00:00 IMPRESSION: MILD CHRONIC CHANGES OF ATROPHY AND MICROVASCULAR ISCHEMIA. NO ACUTE PROCESS. EVIDENCE OF ACUTE STROKE: NO. Assessment and Plan - Diagnosis (1) Acute metabolic encephalopathy Is this a current diagnosis for this admission?: Yes Plan: At baseline Multifactorial: Hyponatremia superimposed on schizoaffective disorder, acute urinary retention Continue risperidone, buspar Needs nursing facility placement with locked unit Waxing and waning agitation seems to be his personal baseline mentation (2) Acute urinary retention Is this a current diagnosis for this admission?: Yes Plan: Resolved; now voiding spontaneously. Secondary to BPH. May also be related to anticholinergic medications. Avoid when able. Thorazine previously discontinued. Hess removed; voiding spontaneously (3) BPH (benign prostatic hyperplasia) Qualifiers: Lower urinary tract symptom presence: symptoms absent Qualified Code(s): N40.0 - Benign prostatic hyperplasia without lower urinary tract symptoms Is this a current diagnosis for this admission?: Yes Plan: Continue tamsulosin and Proscar (4) Dehydration Is this a current diagnosis for this admission?: Yes Plan: Resolved. (5) Emphysema lung Qualifiers: Emphysema type: centrilobular Qualified Code(s): J43.2 - Centrilobular emphysema Is this a current diagnosis for this admission?: Yes Plan: Stable and without exacerbation at this time. (6) Hypertension Is this a current diagnosis for this admission?: No Plan: Acceptable blood pressures Continue clonidine, cardizem, isosorbide Lisinopril discontinued secondary to BLANCA. (7) Hyponatremia Is this a current diagnosis for this admission?: Yes Plan: Improved; Na 116-> 130 currently. Secondary to Primary polydipsia. Mental health service consultation obtained; they have reviewed his medication regiment and made recommendations with regard to his recurrent episodes of hyponatremia. Nephrology previously consulted; appreciate their assistance and recommendations. Liberalize dietary sodium; regular diet. Free water restricted to 1200 mL's daily. Continue Sodium tablet 1 gm QID Strict I&O's. (8) Pneumonia Qualifiers: Pneumonia type: due to unspecified organism Laterality: left Lung location: lower lobe of lung Qualified Code(s): J18.9 - Pneumonia, unspecified organism Is this a current diagnosis for this admission?: Yes Plan: Resolved (9) Primary polydipsia Is this a current diagnosis for this admission?: Yes Plan: Free water fluid restricted to 1200ml daily. Discussed w/ nursing that he may have salt containing fluids (Pepsi, Miguelina Jovita, Tomato juice). Continue strict I&Os (10) Schizophrenia Qualifiers: Schizophrenia type: unspecified Qualified Code(s): F20.9 - Schizophrenia, unspecified Is this a current diagnosis for this admission?: Yes Plan: - repeat CT head unremarkable Mental health services were consulted with following medication recommendations: Continue Depakote valium 5 mg Po q6 PRN; have increased to 10 mg q4hp Buspar 5MG twice a day Add Risperdal 0.25MG twice a day; have increased to 0.5 mg BID (11) Seizure Is this a current diagnosis for this admission?: Yes Plan: No further seizure activity. Seizure activity noted while in the emergency department. Received loading dose of Dilantin followed by twice daily dosing until the patient has been seizure-free for greater than 48 hours. Have discontinued. Sodium is now improved and no longer a potential cause of seizure activity (NA 132). Valporic acid level remains low; 47-> 41 We will continue seizure precautions and monitor closely. Continue Depakote; have increased to 750 mg BID (12) Tobacco abuse Is this a current diagnosis for this admission?: Yes Plan: Daily nicotine patch. (13) UTI (urinary tract infection) due to urinary indwelling catheter Qualifiers: Indwelling urinary catheter type: indwelling urethral catheter Encounter type: initial encounter Qualified Code(s): T83.511A - Infection and inflammatory reaction due to indwelling urethral catheter, initial encounter; N39.0 - Urinary tract infection, site not specified Is this a current diagnosis for this admission?: Yes Plan: UA reveals UTI WBCs 24k Urine cultures show staph aureus resistant to fluoroquinolones. Blood cultures not obtained; patient refusing. Hess is removed. DC Levaquin; start Augmentin 875 twice daily; Day #2 Unfortunately, patient continues to refuse lab work. Have not been able to obtain repeat CBC or blood cultures. However, his vital signs are stable without fever and patient largely appears to be asymptomatic. Should patient develop UTI symptoms or fever, will need to provide some sedation and obtain further lab work. Will plan to repeat urinalysis in the morning to assess response. - Plan Summary Summary: DVT ppx: heparin Dispo: He is awaiting placement [facility]. SW following. He does not always participate in the plan of care but at least he seems to be doing okay as long as he is left alone. Vital signs decrease to q shift - Time Time Spent with patient: 35 or more minutes Anticipated Discharge Disposition: [facility] Anticipated Discharge Timeframe: when bed available
[2020-02-27] MEDS: DIVALPROEX SODIUM 500 MG TAB.SR.24H PO SCH ×3 (02:17→22:07)
[2020-02-27] MEDS: AMOXICILLIN TR/POT CLAVULANATE 875-125 MG TAB PO SCH ×3 (02:17→22:06)
[2020-02-27] MEDS: DIVALPROEX SODIUM 250 MG TAB.SR.24H PO SCH ×3 (02:17→22:07)
[2020-02-27] MEDS: BUSPIRONE HCL 10 MG TABLET PO SCH ×3 (02:17→22:06)
[2020-02-27] MEDS: SODIUM CHLORIDE 1 GM TABLET PO SCH ×4 (02:18→22:07)
[2020-02-27] MEDS: RISPERIDONE 0.25 MG TABLET PO SCH ×3 (02:18→22:07)
[2020-02-27] MEDS: DILTIAZEM HCL 180 MG CAPSULE.CR PO SCH (10:06)
[2020-02-27] MEDS: CLONIDINE 0.1 MG/24 HR PATCH.TDWK TD SCH (10:09)
[2020-02-27 12:47] LABS: ABSOLUTE BASOPHILS # (AUTO) 0.2 10^3/uL (0.0-0.2); ABSOLUTE EOSINOPHILS # (AUTO) 0.4 10^3/uL (0.0-0.6); ABSOLUTE LYMPHOCYTES (AUTO) 2.3 10^3/uL (0.5-4.7); ABSOLUTE MONOCYTES (AUTO) 0.9 10^3/uL (0.1-1.4); ABSOLUTE NEUT (AUTO) 9.1 10^3/uL (1.7-8.2); BASOPHILS % (AUTO) 1.2 % (0-2); EOSINOPHILS % (AUTO) 3.5 % (0-6); HEMATOCRIT 34.5 % (37.9-51.0); HEMOGLOBIN 11.7 g/dL (13.5-17.0); LYMPHOCYTES % (AUTO) 17.9 % (13-45); MEAN CORPUSCULAR HGB CONC 33.8 g/dL (32.0-36.0); MEAN CORPUSCULAR VOLUME 89 fl (80-97); MONOCYTES % (AUTO) 7.1 % (3-13); PLATELET COUNT 380 10^3/uL (150-450); RED BLOOD COUNT 3.89 10^6/uL (4.35-5.55); RED CELL DISTRIBUTION WIDTH 13.8 % (11.5-14.0); SEGMENTED NEUTROPHILS % (AUTO) 70.3 % (42-78); TOTAL CELLS COUNTED % (AUTO) 100 %
--- NOTE | 2020-02-27 13:11 | PDOC PROGRESS REPORT ---
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 Now needing placement. 02/25/2020. Saw patient twice this morning, in the morning patient too somnolent to provide any history, saw patient again in the afternoon, patient arousable but falls asleep readily, again does not provide much history, as per primary nurse patient was agitated yesterday refusing to have her his blood drawn, a dose of IM Haldol was given which was not effective, following that patient was given a dose of IM Ativan, as per primary nurse patient did have his breakfast and lunch today, he is taking his medication. 02/26/2020. No acute events overnight. Patient has not been agitated. Still refusing blood draws. Patient this morning, comfortably seen with no apparent distress. Cooperative with physical examination. 02/27/2020. No acute events overnight. Patient also inappropriate with nursing staff occasionally, refusing his medication most of the time, refusing nursing assessment, saw patient this afternoon, comfortably sitting bed no apparent di stress, does not communicate much, awake and alert however mumbles incoherent words to most of my questions, took his medication this morning, when asked if he would let us do some blood draw from him he said no, when asked for reason he states to monitor glucose, after much persuasion patient agreed to have one-time blood draw. Does not allow physical examination. Reason For Visit: HYPONATREMIA Physical Exam Vital Signs: Temp Pulse Resp BP Pulse Ox 98.6 F 77 19 145/93 H 98 02/27/20 10:00 02/27/20 08:24 02/27/20 08:24 02/27/20 08:24 02/27/20 08:24 Intake & Output 02/26/20 02/27/20 02/28/20 06:59 06:59 06:59 Intake Total 2490 2430 465 Output Total 4 Balance 2490 2426 465 Weight 79.1 kg 79.9 kg 79.5 kg General appearance: PRESENT: no acute distress, well-developed, well-nourished Head exam: PRESENT: atraumatic, normocephalic Respiratory exam: ABSENT: rales, rhonchi, wheezes Neurological exam: PRESENT: alert, awake, oriented to person, CN II-XII grossly intact, other - Moves all extremities, awake and alert, oriented to person, does not allow physical examination. Results Laboratory Results: 02/27/20 12:15 02/24/20 20:05 02/27/20 12:15 WBC 13.0 H RBC 3.89 L Hgb 11.7 L Hct 34.5 L MCV 89 MCH 30.0 MCHC 33.8 RDW 13.8 Plt Count 380 Seg Neutrophils % 70.3 12/25/19 12/25/19 12/25/19 13:39 13:39 13:39 Creatine Kinase 176 H Cancelled Troponin I 0.068 NT-Pro-B Natriuret Pep 12/25/19 12/26/19 21:27 05:40 Creatine Kinase Troponin I 0.127 0.096 NT-Pro-B Natriuret Pep 818 H Impressions: Chest X-Ray 12/29/19 07:00 IMPRESSION: NO ACUTE RADIOGRAPHIC FINDING IN THE CHEST. Head CT 01/19/20 00:00 IMPRESSION: MILD CHRONIC CHANGES OF ATROPHY AND MICROVASCULAR ISCHEMIA. NO ACUTE PROCESS. EVIDENCE OF ACUTE STROKE: NO. Assessment and Plan - Diagnosis (1) Acute metabolic encephalopathy Is this a current diagnosis for this admission?: Yes Plan: At baseline Multifactorial: Hyponatremia superimposed on schizoaffective disorder, acute u rinary retention Continue risperidone, buspar Needs nursing facility placement with locked unit Waxing and waning agitation seems to be his personal baseline mentation (2) Acute urinary retention Is this a current diagnosis for this admission?: Yes Plan: Resolved; now voiding spontaneously. Secondary to BPH. May also be related to anticholinergic medications. Avoid when able. Thorazine previously discontinued. Hess removed; voiding spontaneously (3) BPH (benign prostatic hyperplasia) Qualifiers: Lower urinary tract symptom presence: symptoms absent Qualified Code(s): N40.0 - Benign prostatic hyperplasia without lower urinary tract symptoms Is this a current diagnosis for this admission?: Yes Plan: Continue tamsulosin and Proscar (4) Dehydration Is this a current diagnosis for this admission?: Yes Plan: Resolved. (5) Emphysema lung Qualifiers: Emphysema type: centrilobular Qualified Code(s): J43.2 - Centrilobular emphysema Is this a current diagnosis for this admission?: Yes Plan: Stable and without exacerbation at this time. (6) Hypertension Is this a current diagnosis for this admission?: No Plan: Acceptable blood pressures Continue clonidine, cardizem, isosorbide Lisinopril discontinued secondary to BLANCA. (7) Hyponatremia Is this a current diagnosis for this admission?: Yes Plan: Improved; has been refusing blood draws, last blood draw 02/24/2020. Secondary to Primary polydipsia. Mental health service consultation obtained; they have reviewed his medication regiment and made recommendations with regard to his recurrent episodes of hypo natremia. Nephrology previously consulted; appreciate their assistance and recommendations. Liberalize dietary sodium; regular diet. Free water restricted to 1200 mL's daily. Continue Sodium tablet 1 gm QID Strict I&O's. (8) Pneumonia Qualifiers: Pneumonia type: due to unspecified organism Laterality: left Lung l ocation: lower lobe of lung Qualified Code(s): J18.9 - Pneumonia, unspecified organism Is this a current diagnosis for this admission?: Yes Plan: Resolved (9) Primary polydipsia Is this a current diagnosis for this admission?: Yes Plan: Free water fluid restricted to 1200ml daily. Discussed w/ nursing that he may have salt containing fluids (Pepsi, Miguelina Jovita, Tomato juice). Continue strict I&Os (10) Schizophrenia Qualifiers: Schizophrenia type: unspecified Qualified Code(s): F20.9 - Schizophrenia, unspecified Is this a current diagnosis for this admission?: Yes Plan: - repeat CT head unremarkable Mental health services were consulted with following medication recommendations: Continue Depakote valium 5 mg Po q6 PRN; have increased to 10 mg q4hp Buspar 5MG twice a day Add Risperdal 0.25MG twice a day; have increased to 0.5 mg BID (11) Seizure Is this a current diagnosis for this admission?: Yes Plan: No further seizure activity. Seizure activity noted while in the emergency department. Received loading dose of Dilantin followed by twice daily dosing until the patient has been seizure-free for greater than 48 hours. Have discontinued. Sodium is now improved and no longer a potential cause of seizure activity (NA 132). Valporic acid level remains low; 47-> 41 We will continue seizure precautions and monitor closely. Continue Depakote; have increased to 750 mg BID (12) Tobacco abuse Is this a current diagnosis for this admission?: Yes Plan: Daily nicotine patch. (13) UTI (urinary tract infection) due to urinary indwelling catheter Qualifiers: Indwelling urinary catheter type: indwelling urethral catheter Encounter type: initial encounter Qualified Code(s): T83.511A - Infection and inflammatory reaction due to indwelling urethral catheter, initial encounter; N39.0 - Urinary tract infection, site not specified Is this a current diagnosis for this admission?: Yes Plan: UA reveals UTI Urine cultures show staph aureus resistant to fluoroquinolones. Blood cultures not obtained; patient refusing. Hess is removed. DC Levaquin; start Augmentin 875 twice daily; Day #3/7 as per ID recomm endations. Unfortunately, patient continues to refuse lab work. Have not been able to obtain repeat CBC or blood cultures. However, his vital signs are stable without fever and patient largely appears to be asymptomatic. Should patient develop UTI symptoms or fever, will need to provide some sedation and obtain further lab work. Will plan to repeat urinalysis in the morning to assess response. - Plan Summary Summary: DVT ppx: heparin Dispo: He is awaiting placement [facility]. SW following. He does not always participate in the plan of care but at least he seems to be doing okay as long as he is left alone. Vital signs decrease to q shift - Time Time Spent with patient: 25-34 minutes Anticipated Discharge Disposition: [facility] Anticipated Discharge Timeframe: when bed available
[2020-02-27 14:42] LABS: BLOOD UREA NITROGEN 15 mg/dL (7-20); CALCIUM 8.8 mg/dL (8.4-10.2); CARBON DIOXIDE 22 mmol/L (22-30); CHLORIDE 95 mmol/L (98-107); GLUCOSE 138 mg/dL (75-110); POTASSIUM 4.5 mmol/L (3.6-5.0)
[2020-02-27 14:43] LABS: ALBUMIN 3.3 g/dL (3.5-5.0); ALKALINE PHOSPHATASE 70 U/L (38-126); ANION GAP 12 (5-19); ASPARTATE AMINO TRANSFERASE 13 U/L (17-59); BILIRUBIN,DIRECT 0.1 mg/dL (0.0-0.4); BILIRUBIN,TOTAL 0.2 mg/dL (0.2-1.3); TOTAL PROTEIN 6.5 g/dL (6.3-8.2)
[2020-02-27] MEDS: FINASTERIDE 5 MG TABLET PO SCH (18:47)
[2020-02-27] MEDS: TAMSULOSIN HCL 0.4 MG CAP.SR.24H PO SCH (18:47)
[2020-02-28] MEDS: SODIUM CHLORIDE 1 GM TABLET PO SCH ×3 (09:08→17:49)
[2020-02-28] MEDS: RISPERIDONE 0.25 MG TABLET PO SCH (09:08)
[2020-02-28] MEDS: AMOXICILLIN TR/POT CLAVULANATE 875-125 MG TAB PO SCH (09:08)
[2020-02-28] MEDS: BUSPIRONE HCL 10 MG TABLET PO SCH (09:08)
[2020-02-28] MEDS: DILTIAZEM HCL 180 MG CAPSULE.CR PO SCH (10:40)
[2020-02-28] MEDS: DIVALPROEX SODIUM 250 MG TAB.SR.24H PO SCH (10:43)
[2020-02-28] MEDS: DIVALPROEX SODIUM 500 MG TAB.SR.24H PO SCH (10:43)
[2020-02-28] MEDS: TAMSULOSIN HCL 0.4 MG CAP.SR.24H PO SCH (17:48)
[2020-02-28] MEDS: FINASTERIDE 5 MG TABLET PO SCH (17:48)
--- NOTE | 2020-02-28 17:53 | PDOC PROGRESS REPORT ---
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 Now needing placement. 02/25/2020. Saw patient twice this morning, in the morning patient too somnolent to provide any history, saw patient again in the afternoon, patient arousable but falls asleep readily, again does not provide much history, as per primary nurse patient was agitated yesterday refusing to have her his blood drawn, a dose of IM Haldol was given which was not effective, following that patient was given a dose of IM Ativan, as per primary nurse patient did have his breakfast and lunch today, he is taking his medication. 02/26/2020. No acute events overnight. Patient has not been agitated. Still refusing blood draws. Patient this morning, comfortably seen with no apparent distress. Cooperative with physical examination. 02/27/2020. No acute events overnight. Patient also inappropriate with nursing staff occasionally, refusing his medication most of the time, refusing nursing assessment, saw patient this afternoon, comfortably sitting bed no apparent di stress, does not communicate much, awake and alert however mumbles incoherent words to most of my questions, took his medication this morning, when asked if he would let us do some blood draw from him he said no, when asked for reason he states to monitor glucose, after much persuasion patient agreed to have one-time blood draw. Does not allow physical examination. Reason For Visit: HYPONATREMIA Physical Exam Vital Signs: Temp Pulse Resp BP Pulse Ox 98.6 F 57 L 16 108/71 99 02/28/20 08:23 02/28/20 03:04 02/28/20 03:04 02/28/20 03:04 02/28/20 03:04 Intake & Output 02/27/20 02/28/20 02/29/20 06:59 06:59 06:59 Intake Total 2430 1875 420 Output Total 4 Balance 2426 1875 420 Weight 79.9 kg 79.5 kg Results Laboratory Results: 02/27/20 12:15 02/27/20 12:15 12/25/19 12/25/19 12/25/19 13:39 13:39 13:39 Creatine Kinase 176 H Cancelled Troponin I 0.068 NT-Pro-B Natriuret Pep 12/25/19 12/26/19 21:27 05:40 Creatine Kinase Troponin I 0.127 0.096 NT-Pro-B Natriuret Pep 818 H Impressions: Chest X-Ray 12/29/19 07:00 IMPRESSION: NO ACUTE RADIOGRAPHIC FINDING IN THE CHEST. Head CT 01/19/20 00:00 IMPRESSION: MILD CHRONIC CHANGES OF ATROPHY AND MICROVASCULAR ISCHEMIA. NO ACUTE PROCESS. EVIDENCE OF ACUTE STROKE: NO. Assessment and Plan - Diagnosis (1) Acute metabolic encephalopathy Is this a current diagnosis for this admission?: Yes (2) Acute urinary retention Is this a current diagnosis for this admission?: Yes (3) BPH (benign prostatic hyperplasia) Qualifiers: Lower urinary tract symptom presence: symptoms absent Qualified Code(s): N40.0 - Benign prostatic hyperplasia without lower urinary tract symptoms Is this a current diagnosis for this admission?: Yes (4) Dehydration Is this a current diagnosis for this admission?: Yes (5) Emphysema lung Qualifiers: Emphysema type: centrilobular Qualified Code(s): J43.2 - Centrilobular emphysema Is this a current diagnosis for this admission?: Yes (6) Hypertension Is this a current diagnosis for this admission?: No (7) Hyponatremia Is this a current diagnosis for this admission?: Yes (8) Pneumonia Qualifiers: Pneumonia type: due to unspecified organism Laterality: left Lung location: lower lobe of lung Qualified Code(s): J18.9 - Pneumonia, unspecified organism Is this a current diagnosis for this admission?: Yes (9) Primary polydipsia Is this a current diagnosis for this admission?: Yes (10) Schizophrenia Qualifiers: Schizophrenia type: unspecified Qualified Code(s): F20.9 - Schizophrenia, unspecified Is this a current diagnosis for this admission?: Yes (11) Seizure Is this a current diagnosis for this admission?: Yes (12) Tobacco abuse Is this a current diagnosis for this admission?: Yes (13) UTI (urinary tract infection) due to urinary indwelling catheter Qualifiers: Indwelling urinary catheter type: indwelling urethral catheter Encounter type: initial encounter Qualified Code(s): T83.511A - Infection and in flammatory reaction due to indwelling urethral catheter, initial encounter; N39.0 - Urinary tract infection, site not specified Is this a current diagnosis for this admission?: Yes - Plan Summary Summary: DVT ppx: heparin Dispo: He is awaiting [facility]. SW following. He does not always participate in the plan of care but at least he seems to be doing okay as long as he is left alone. Vital signs decrease to q shift - Time Time Spent with patient: 25-34 minutes Anticipated Discharge Disposition: [facility] Anticipated Discharge Timeframe: when bed available
--- NOTE | 2020-02-28 18:54 | PDOC PROGRESS REPORT ---
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 Now needing placement. 02/25/2020. Saw patient twice this morning, in the morning patient too somnolent to provide any history, saw patient again in the afternoon, patient arousable but falls asleep readily, again does not provide much history, as per primary nurse patient was agitated yesterday refusing to have her his blood drawn, a dose of IM Haldol was given which was not effective, following that patient was given a dose of IM Ativan, as per primary nurse patient did have his breakfast and lunch today, he is taking his medication. 02/26/2020. No acute events overnight. Patient has not been agitated. Still refusing blood draws. Patient this morning, comfortably seen with no apparent distress. Cooperative with physical examination. 02/27/2020. No acute events overnight. Patient also inappropriate with nursing staff occasionally, refusing his medication most of the time, refusing nursing assessment, saw patient this afternoon, comfortably sitting bed no apparent di stress, does not communicate much, awake and alert however mumbles incoherent words to most of my questions, took his medication this morning, when asked if he would let us do some blood draw from him he said no, when asked for reason he states to monitor glucose, after much persuasion patient agreed to have one-time blood draw. Does not allow physical examination. 02/28/2020. No acute events overnight. Saw patient this afternoon, comfortably resting in no apparent distress. Denies fever, chills, nausea, vomiting. Does not allow physical examination. Reason For Visit: HYPONATREMIA Physical Exam Vital Signs: Temp Pulse Resp BP Pulse Ox 98.6 F 57 L 16 108/71 99 02/28/20 08:23 02/28/20 03:04 02/28/20 03:04 02/28/20 03:04 02/28/20 03:04 Intake & Output 02/27/20 02/28/20 02/29/20 06:59 06:59 06:59 Intake Total 2430 1875 420 Output Total 4 Balance 2426 1875 420 Weight 79.9 kg 79.5 kg General appearance: PRESENT: no acute distress, well-developed, well-nourished Head exam: PRESENT: atraumatic, normocephalic Neurological exam: PRESENT: alert, awake, oriented to person, oriented to place, CN II-XII grossly intact - By observation. ABSENT: motor sensory deficit Results Laboratory Results: 02/27/20 12:15 02/27/20 12:15 12/25/19 12/25/19 12/25/19 13:39 13:39 13:39 Creatine Kinase 176 H Cancelled Troponin I 0.068 NT-Pro-B Natriuret Pep 12/25/19 12/26/19 21:27 05:40 Creatine Kinase Troponin I 0.127 0.096 NT-Pro-B Natriuret Pep 818 H Impressions: Chest X-Ray 12/29/19 07:00 IMPRESSION: NO ACUTE RADIOGRAPHIC FINDING IN THE CHEST. Head CT 01/19/20 00:00 IMPRESSION: MILD CHRONIC CHANGES OF ATROPHY AND MICROVASCULAR ISCHEMIA. NO ACUTE PROCESS. EVIDENCE OF ACUTE STROKE: NO. Assessment and Plan - Diagnosis (1) Acute metabolic encephalopathy Is this a current diagnosis for this admission?: Yes Plan: At baseline Multifactorial: Hyponatremia superimposed on schizoaffective disorder, acute urinary retention Continue risperidone, buspar Needs nursing facility placement with locked unit Waxing and waning agitation seems to be his personal baseline mentation (2) Acute urinary retention Is this a current diagnosis for this admission?: Yes Plan: Resolved; now voiding spontaneously. Secondary to BPH. May also be related to anticholinergic medications. Avoid when able. Thorazine previously discontinued. Hess removed; voiding spontaneously (3) BPH (benign prostatic hyperplasia) Qualifiers: Lower urinary tract symptom presence: symptoms absent Qualified Code(s): N40.0 - Benign prostatic hyperplasia without lower urinary tract symptoms Is this a current diagnosis for this admission?: Yes Plan: Continue tamsulosin and Proscar (4) Dehydration Is this a current diagnosis for this admission?: Yes Plan: Resolved. (5) Emphysema lung Qualifiers: Emphysema type: centrilobular Qualified Code(s): J43.2 - Centrilobular emphysema Is this a current diagnosis for this admission?: Yes Plan: Stable and without exacerbation at this time. (6) Hypertension Is this a current diagnosis for this admission?: No Plan: Acceptable blood pressures Continue clonidine, cardizem, isosorbide Lisinopril discontinued secondary to BLANCA. (7) Hyponatremia Is this a current diagnosis for this admission?: Yes Plan: Improved; has been refusing blood draws, last blood draw 02/24/2020. Secondary to Primary polydipsia. Mental health service consultation obtained; they have reviewed his medication regiment and made recommendations with regard to his recurrent episodes of hyponatremia. Nephrology previously consulted; appreciate their assistance and recommendations. Liberalize dietary sodium; regular diet. Free water restricted to 1200 mL's daily. Continue Sodium tablet 1 gm QID Strict I&O's. (8) Pneumonia Qualifiers: Pneumonia type: due to unspecified organism Laterality: left Lung location: lower lobe of lung Qualified Code(s): J18.9 - Pneumonia, unspecified organism Is this a current diagnosis for this admission?: Yes Plan: Resolved (9) Primary polydipsia Is this a current diagnosis for this admission?: Yes Plan: Free water fluid restricted to 1200ml daily. Discussed w/ nursing that he may have salt containing fluids (Pepsi, Miguelina Jovita, Tomato juice). Continue strict I&Os (10) Schizophrenia Qualifiers: Schizophrenia type: unspecified Qualified Code(s): F20.9 - Schizophrenia, unspecified Is this a current diagnosis for this admission?: Yes Plan: - repeat CT head unremarkable Mental health services were consulted with following medication recommendations: Continue Depakote valium 5 mg Po q6 PRN; have increased to 10 mg q4hp Buspar 5MG twice a day Add Risperdal 0.25MG twice a day; have increased to 0.5 mg BID (11) Seizure Is this a current diagnosis for this admission?: Yes Plan: No further seizure activity. Seizure activity noted while in the emergency department. Received loading dose of Dilantin followed by twice daily dosing until the patient has been seizure-free for greater than 48 hours. Have discontinued. Sodium is now improved and no longer a potential cause of seizure activity (NA 132). Valporic acid level remains low; 47-> 41 We will continue seizure precautions and monitor closely. Continue Depakote; have increased to 750 mg BID (12) Tobacco abuse Is this a current diagnosis for this admission?: Yes Plan: Daily nicotine patch. (13) UTI (urinary tract infection) due to urinary indwelling catheter Qualifiers: Indwelling urinary catheter type: indwelling urethral catheter Encounter type: initial encounter Qualified Code(s): T83.511A - Infection and inflammatory reaction due to indwelling urethral catheter, initial encounter; N39.0 - Urinary tract infection, site not specified Is this a current diagnosis for this admission?: Yes Plan: UA reveals UTI Urine cultures show staph aureus resistant to fluoroquinolones. Blood cultures not obtained; patient refusing. Hess is removed. DC Levaquin; start Augmentin 875 twice daily; Day #3/7 as per ID recommendations. Unfortunately, patient continues to refuse lab work. Have not been able to obtain repeat CBC or blood cultures. However, his vital signs are stable without fever and patient largely appears to be asymptomatic. Should patient develop UTI symptoms or fever, will need to provide some sedation and obtain further lab work. Will plan to repeat urinalysis in the morning to assess response. - Plan Summary Summary: DVT ppx: heparin Dispo: He is awaiting placement [facility]. SW following. He does not always participate in the plan of care but at least he seems to be doing okay as long as he is left alone. Vital signs decrease to q shift - Time Time Spent with patient: 15-24 minutes Medications reviewed and adjusted accordingly: Yes Anticipated Discharge Disposition: Assisted Care Facility Anticipated Discharge Timeframe: when bed available
[2020-02-29] MEDS: DIVALPROEX SODIUM 500 MG TAB.SR.24H PO SCH ×3 (00:42→23:09)
[2020-02-29] MEDS: AMOXICILLIN TR/POT CLAVULANATE 875-125 MG TAB PO SCH ×3 (00:43→23:09)
[2020-02-29] MEDS: DIVALPROEX SODIUM 250 MG TAB.SR.24H PO SCH ×3 (00:45→23:10)
[2020-02-29] MEDS: BUSPIRONE HCL 10 MG TABLET PO SCH ×3 (00:46→23:10)
[2020-02-29] MEDS: SODIUM CHLORIDE 1 GM TABLET PO SCH ×5 (00:46→23:09)
[2020-02-29] MEDS: RISPERIDONE 0.25 MG TABLET PO SCH ×3 (00:46→23:10)
[2020-02-29] MEDS: DILTIAZEM HCL 180 MG CAPSULE.CR PO SCH (10:33)
--- NOTE | 2020-02-29 12:31 | PDOC PROGRESS REPORT ---
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 Now needing placement. 02/25/2020. Saw patient twice this morning, in the morning patient too somnolent to provide any history, saw patient again in the afternoon, patient arousable but falls asleep readily, again does not provide much history, as per primary nurse patient was agitated yesterday refusing to have her his blood drawn, a dose of IM Haldol was given which was not effective, following that patient was given a dose of IM Ativan, as per primary nurse patient did have his breakfast and lunch today, he is taking his medication. 02/26/2020. No acute events overnight. Patient has not been agitated. Still refusing blood draws. Patient this morning, comfortably seen with no apparent distress. Cooperative with physical examination. 02/27/2020. No acute events overnight. Patient also inappropriate with nursing staff occasionally, refusing his medication most of the time, refusing nursing assessment, saw patient this afternoon, comfortably sitting bed no apparent di stress, does not communicate much, awake and alert however mumbles incoherent words to most of my questions, took his medication this morning, when asked if he would let us do some blood draw from him he said no, when asked for reason he states to monitor glucose, after much persuasion patient agreed to have one-time blood draw. Does not allow physical examination. 02/28/2020. No acute events overnight. Saw patient this afternoon, comfortably resting in no apparent distress. Denies fever, chills, nausea, vomiting. Does not allow physical examination. 02/29/2020. No acute events overnight. Patient comfortably sitting on the edge of the bed does not appear to be in acute distress, alert and awake but unfortunately does not communicate much, when asked if he was okay he just shakes his head, when asked if I could examine him he shakes his head in agreement. Has been taking his medications as per primary nurse. Reason For Visit: HYPONATREMIA Physical Exam Vital Signs: Temp Pulse Resp BP Pulse Ox 98.6 F 83 17 122/88 H 100 02/29/20 10:00 02/29/20 08:00 02/29/20 08:00 02/29/20 08:00 02/29/20 08:00 Intake & Output 02/28/20 02/29/20 03/01/20 06:59 06:59 06:59 Intake Total 1875 1320 Balance 1875 1320 Weight 79.5 kg 79.5 kg General appearance: PRESENT: no acute distress, well-developed, well-nourished Head exam: PRESENT: atraumatic, normocephalic Respiratory exam: PRESENT: clear to auscultation alan. ABSENT: rales, rhonchi, wheezes Cardiovascular exam: PRESENT: RRR. ABSENT: diastolic murmur, rubs, systolic murmur GI/Abdominal exam: PRESENT: normal bowel sounds, soft. ABSENT: distended, guarding, mass, organolmegaly, rebound, tenderness Neurological exam: PRESENT: alert, awake, CN II-XII grossly intact, other - Does not communicate, just shakes his head when asked questions.. ABSENT: motor sensory deficit Results Laboratory Results: 02/27/20 12:15 02/27/20 12:15 12/25/19 12/25/19 12/25/19 13:39 13:39 13:39 Creatine Kinase 176 H Cancelled Troponin I 0.068 NT-Pro-B Natriuret Pep 12/25/19 12/26/19 21:27 05:40 Creatine Kinase Troponin I 0.127 0.096 NT-Pro-B Natriuret Pep 818 H Impressions: Chest X-Ray 12/29/19 07:00 IMPRESSION: NO ACUTE RADIOGRAPHIC FINDING IN THE CHEST. Head CT 01/19/20 00:00 IMPRESSION: MILD CHRONIC CHANGES OF ATROPHY AND MICROVASCULAR ISCHEMIA. NO ACUTE PROCESS. EVIDENCE OF ACUTE STROKE: NO. Assessment and Plan - Diagnosis (1) Acute metabolic encephalopathy Is this a current diagnosis for this admission?: Yes Plan: At baseline Multifactorial: Hyponatremia superimposed on schizoaffective disorder, acute urinary retention Continue risperidone, buspar Needs nursing facility placement with locked unit Waxing and waning agitation seems to be his personal baseline mentation (2) Acute urinary retention Is this a current diagnosis for this admission?: Yes Plan: Resolved; now voiding spontaneously. Secondary to BPH. May also be related to anticholinergic medications. Avoid when able. Thorazine previously discontinued. Hess removed; voiding spontaneously (3) BPH (benign prostatic hyperplasia) Qualifiers: Lower urinary tract symptom presence: symptoms absent Qualified Code(s): N40.0 - Benign prostatic hyperplasia without lower urinary tract symptoms Is this a current diagnosis for this admission?: Yes Plan: Continue tamsulosin and Proscar (4) Dehydration Is this a current diagnosis for this admission?: Yes Plan: Resolved. (5) Emphysema lung Qualifiers: Emphysema type: centrilobular Qualified Code(s): J43.2 - Centrilobular emphysema Is this a current diagnosis for this admission?: Yes Plan: Stable and without exacerbation at this time. (6) Hypertension Is this a current diagnosis for this admission?: Yes Plan: Acceptable blood pressures Continue clonidine, cardizem, isosorbide Lisinopril discontinued secondary to BLANCA. (7) Hyponatremia Is this a current diagnosis for this admission?: Yes Plan: Improved; has been refusing blood draws, last blood draw 02/24/2020. Secondary to Primary polydipsia. Mental health service consultation obtained; they have reviewed his medication regiment and made recommendations with regard to his recurrent episodes of hyponatremia. Nephrology previously consulted; appreciate their assistance and recommendation s. Liberalize dietary sodium; regular diet. Free water restricted to 1200 mL's daily. Continue Sodium tablet 1 gm QID Strict I&O's. (8) Pneumonia Qualifiers: Pneumonia type: due to unspecified organism Laterality: left Lung location: lower lobe of lung Qualified Code(s): J18.9 - Pneumonia, unspecified organism Is this a current diagnosis for this admission?: Yes Plan: Resolved (9) Primary polydipsia Is this a current diagnosis for this admission?: Yes Plan: Free water fluid restricted to 1200ml daily. Discussed w/ nursing that he may have salt containing fluids (Pepsi, Miguelina Jovita, Tomato juice). Continue strict I&Os (10) Schizophrenia Qualifiers: Schizophrenia type: unspecified Qualified Code(s): F20.9 - Schizophrenia, unspecified Is this a current diagnosis for this admission?: Yes Plan: - repeat CT head unremarkable Mental health services were consulted with following medication recommendations: Continue Depakote valium 5 mg Po q6 PRN; have increased to 10 mg q4hp Buspar 5MG twice a day Add Risperdal 0.25MG twice a day; have increased to 0.5 mg BID (11) Seizure Is this a current diagnosis for this admission?: Yes Plan: No further seizure activity. Seizure activity noted while in the emergency department. Received loading dose of Dilantin followed by twice daily dosing until the patient has been seizure-free for greater than 48 hours. Have discontinued. Sodium is now improved and no longer a potential cause of seizure activity (NA 132). Valporic acid level remains low; 47-> 41 We will continue seizure precautions and monitor closely. Continue Depakote; have increased to 750 mg BID (12) Tobacco abuse Is this a current diagnosis for this admission?: Yes Plan: Daily nicotine patch. (13) UTI (urinary tract infection) due to urinary indwelling catheter Qualifiers: Indwelling urinary catheter type: indwelling urethral catheter Encounter type: initial encounter Qualified Code(s): T83.511A - Infection and inflammatory reaction due to indwelling urethral catheter, initial encounter; N39.0 - Urinary tract infection, site not specified Is this a current diagnosis for this admission?: Yes Plan: UA reveals UTI Urine cultures show staph aureus resistant to fluoroquinolones. Blood cultures not obtained; patient refusing. Hess is removed. DC Levaquin; start Augmentin 875 twice daily; Day #3/7 as per ID recommendations. Unfortunately, patient continues to refuse lab work. Have not been able to o btain repeat CBC or blood cultures. However, his vital signs are stable without fever and patient largely appears to be asymptomatic. Should patient develop UTI symptoms or fever, will need to provide some sedation and obtain further lab work. Will plan to repeat urinalysis in the morning to assess response. - Plan Summary Summary: DVT ppx: heparin Dispo: He is awaiting placement [facility]. SW following. He does not always participate in the plan of care but at least he seems to be doing okay as long as he is left alone. Vital signs decrease to q shift - Time Time Spent with patient: 25-34 minutes Anticipated Discharge Disposition: Home, Self Care Anticipated Discharge Timeframe: within 24 hours
[2020-02-29] MEDS: TAMSULOSIN HCL 0.4 MG CAP.SR.24H PO SCH (17:29)
[2020-02-29] MEDS: FINASTERIDE 5 MG TABLET PO SCH (17:29)
[2020-03-01] MEDS: DILTIAZEM HCL 180 MG CAPSULE.CR PO SCH (10:31)
[2020-03-01] MEDS: BUSPIRONE HCL 10 MG TABLET PO SCH ×2 (10:32→21:39)
[2020-03-01] MEDS: DIVALPROEX SODIUM 250 MG TAB.SR.24H PO SCH ×2 (10:32→21:39)
[2020-03-01] MEDS: SODIUM CHLORIDE 1 GM TABLET PO SCH ×4 (10:32→21:40)
[2020-03-01] MEDS: RISPERIDONE 0.25 MG TABLET PO SCH ×2 (10:32→21:39)
[2020-03-01] MEDS: DIVALPROEX SODIUM 500 MG TAB.SR.24H PO SCH ×2 (10:34→21:39)
[2020-03-01] MEDS: AMOXICILLIN TR/POT CLAVULANATE 875-125 MG TAB PO SCH ×2 (10:34→21:41)
--- NOTE | 2020-03-01 18:01 | PDOC PROGRESS REPORT ---
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 Now needing placement. 02/25/2020. Saw patient twice this morning, in the morning patient too somnolent to provide any history, saw patient again in the afternoon, patient arousable but falls asleep readily, again does not provide much history, as per primary nurse patient was agitated yesterday refusing to have her his blood drawn, a dose of IM Haldol was given which was not effective, following that patient was given a dose of IM Ativan, as per primary nurse patient did have his breakfast and lunch today, he is taking his medication. 02/26/2020. No acute events overnight. Patient has not been agitated. Still refusing blood draws. Patient this morning, comfortably seen with no apparent distress. Cooperative with physical examination. 02/27/2020. No acute events overnight. Patient also inappropriate with nursing staff occasionally, refusing his medication most of the time, refusing nursing assessment, saw patient this afternoon, comfortably sitting bed no apparent di stress, does not communicate much, awake and alert however mumbles incoherent words to most of my questions, took his medication this morning, when asked if he would let us do some blood draw from him he said no, when asked for reason he states to monitor glucose, after much persuasion patient agreed to have one-time blood draw. Does not allow physical examination. 02/28/2020. No acute events overnight. Saw patient this afternoon, comfortably resting in no apparent distress. Denies fever, chills, nausea, vomiting. Does not allow physical examination. 02/29/2020. No acute events overnight. Patient comfortably sitting on the edge of the bed does not appear to be in acute distress, alert and awake but unfortunately does not communicate much, when asked if he was okay he just shakes his head, when asked if I could examine him he shakes his head in agreement. Has been taking his medications as per primary nurse. 03/01/2020. No acute events overnight. Saw patient this morning sitting in his chair in no apparent distress, unfortunate patient does not communicate much, not appear to be in apparent distress. Per primary nurse patient has been refusing his medications again. Reason For Visit: HYPONATREMIA Physical Exam Vital Signs: Temp Pulse Resp BP Pulse Ox 97.6 F 103 H 18 142/94 H 98 03/01/20 07:33 03/01/20 07:33 03/01/20 07:33 03/01/20 07:33 03/01/20 07:33 Intake & Output 02/29/20 03/01/20 03/02/20 06:59 06:59 06:59 Intake Total 1320 320 326 Balance 1320 320 326 Weight 79.5 kg 79.5 kg General appearance: PRESENT: no acute distress, well-developed, well-nourished Head exam: PRESENT: atraumatic, normocephalic Respiratory exam: PRESENT: clear to auscultation alan. ABSENT: rales, rhonchi, wheezes GI/Abdominal exam: PRESENT: normal bowel sounds, soft. ABSENT: distended, guarding, mass, organolmegaly, rebound, tenderness Neurological exam: PRESENT: alert, awake, oriented to person, CN II-XII grossly intact. ABSENT: motor sensory deficit Results Laboratory Results: 02/27/20 12:15 02/27/20 12:15 02/24/20 20:06 Blood Blood Culture - Final NO GROWTH IN 5 DAYS 02/24/20 20:05 Blood Blood Culture - Final NO GROWTH IN 5 DAYS 12/25/19 12/25/19 12/25/19 13:39 13:39 13:39 Creatine Kinase 176 H Cancelled Troponin I 0.068 NT-Pro-B Natriuret Pep 12/25/19 12/26/19 21:27 05:40 Creatine Kinase Troponin I 0.127 0.096 NT-Pro-B Natriuret Pep 818 H Impressions: Chest X-Ray 12/29/19 07:00 IMPRESSION: NO ACUTE RADIOGRAPHIC FINDING IN THE CHEST. Head CT 01/19/20 00:00 IMPRESSION: MILD CHRONIC CHANGES OF ATROPHY AND MICROVASCULAR ISCHEMIA. NO ACUTE PROCESS. EVIDENCE OF ACUTE STROKE: NO. Assessment and Plan - Diagnosis (1) Acute metabolic encephalopathy Is this a current diagnosis for this admission?: Yes Plan: At baseline Multifactorial: Hyponatremia superimposed on schizoaffective disorder, acute urinary retention Continue risperidone, buspar Needs nursing facility placement with locked unit Waxing and waning agitation seems to be his personal baseline mentation (2) Acute urinary retention Is this a current diagnosis for this admission?: Yes Plan: Resolved; now voiding spontaneously. Secondary to BPH. May also be related to anticholinergic medications. Avoid when able. Thorazine previously discontinued. Hess removed; voiding spontaneously (3) BPH (benign prostatic hyperplasia) Qualifiers: Lower urinary tract symptom presence: symptoms absent Qualified Code(s): N40.0 - Benign prostatic hyperplasia without lower urinary tract symptoms Is this a current diagnosis for this admission?: Yes Plan: Continue tamsulosin and Proscar (4) Dehydration Is this a current diagnosis for this admission?: Yes Plan: Resolved. (5) Emphysema lung Qualifiers: Emphysema type: centrilobular Qualified Code(s): J43.2 - Centrilobular emphysema Is this a current diagnosis for this admission?: Yes Plan: Stable and without exacerbation at this time. (6) Hypertension Is this a current diagnosis for this admission?: Yes Plan: Acceptable blood pressures Continue clonidine, cardizem, isosorbide Lisinopril discontinued secondary to BLANCA. (7) Hyponatremia Is this a current diagnosis for this admission?: Yes Plan: Improved; has been refusing blood draws, last blood draw 02/24/2020. Secondary to Primary polydipsia. Mental health service consultation obtained; they have reviewed his medication regiment and made recommendations with regard to his recurrent episodes of hyponatremia. Nephrology previously consulted; appreciate their assistance and recommendat ions. Liberalize dietary sodium; regular diet. Free water restricted to 1200 mL's daily. Continue Sodium tablet 1 gm QID Strict I&O's. (8) Pneumonia Qualifiers: Pneumonia type: due to unspecified organism Laterality: left Lung location: lower lobe of lung Qualified Code(s): J18.9 - Pneumonia, unspecified organism Is this a current diagnosis for this admission?: Yes Plan: Resolved (9) Primary polydipsia Is this a current diagnosis for this admission?: Yes Plan: Free water fluid restricted to 1200ml daily. Discussed w/ nursing that he may have salt containing fluids (Pepsi, Miguelina Jovita, Tomato juice). Continue strict I&Os (10) Schizophrenia Qualifiers: Schizophrenia type: unspecified Qualified Code(s): F20.9 - Schizophrenia, unspecified Is this a current diagnosis for this admission?: Yes Plan: - repeat CT head unremarkable Mental health services were consulted with following medication recommendations: Continue Depakote valium 5 mg Po q6 PRN; have increased to 10 mg q4hp Buspar 5MG twice a day Add Risperdal 0.25MG twice a day; have increased to 0.5 mg BID (11) Seizure Is this a current diagnosis for this admission?: Yes Plan: No further seizure activity. Seizure activity noted while in the emergency department. Received loading dose of Dilantin followed by twice daily dosing until the patient has been seizure-free for greater than 48 hours. Have discontinued. Sodium is now improved and no longer a potential cause of seizure activity (NA 132). Valporic acid level remains low; 47-> 41 We will continue seizure precautions and monitor closely. Continue Depakote; have increased to 750 mg BID (12) Tobacco abuse Is this a current diagnosis for this admission?: Yes Plan: Daily nicotine patch. (13) UTI (urinary tract infection) due to urinary indwelling catheter Qualifiers: Indwelling urinary catheter type: indwelling urethral catheter Encounter type: initial encounter Qualified Code(s): T83.511A - Infection and inflammatory reaction due to indwelling urethral catheter, initial encounter; N39.0 - Urinary tract infection, site not specified Is this a current diagnosis for this admission?: Yes Plan: UA reveals UTI Urine cultures show staph aureus resistant to fluoroquinolones. Blood cultures not obtained; patient refusing. Hess is removed. DC Levaquin; start Augmentin 875 twice daily; Day #3/7 as per ID recommendations. Unfortunately, patient continues to refuse lab work. Have not been able to obtain repeat CBC or blood cultures. However, his vital signs are stable without fever and patient largely appears to be asymptomatic. Should patient develop UTI symptoms or fever, will need to provide some sedation and obtain further lab work. Will plan to repeat urinalysis in the morning to assess response. - Plan Summary Summary: DVT ppx: heparin Dispo: He is awaiting [facility]. SW following. He does not always participate in the plan of care but at least he seems to be doing okay as long as he is left alone. Vital signs decrease to q shift - Time Time Spent with patient: 25-34 minutes Medications reviewed and adjusted accordingly: Yes Anticipated Discharge Disposition: Intermediate Care Facility Anticipated Discharge Timeframe: when bed available
[2020-03-01] MEDS: FINASTERIDE 5 MG TABLET PO SCH (19:04)
[2020-03-01] MEDS: TAMSULOSIN HCL 0.4 MG CAP.SR.24H PO SCH (19:04)
[2020-03-01] MEDS: ACETAMINOPHEN 325 MG TABLET PO PRN (23:43)
[2020-03-02] MEDS: DIVALPROEX SODIUM 250 MG TAB.SR.24H PO SCH ×2 (09:10→21:14)
[2020-03-02] MEDS: RISPERIDONE 0.25 MG TABLET PO SCH ×2 (09:10→21:14)
[2020-03-02] MEDS: SODIUM CHLORIDE 1 GM TABLET PO SCH ×4 (09:10→21:15)
[2020-03-02] MEDS: BUSPIRONE HCL 10 MG TABLET PO SCH ×2 (09:10→21:14)
[2020-03-02] MEDS: DILTIAZEM HCL 180 MG CAPSULE.CR PO SCH (09:10)
[2020-03-02] MEDS: DIVALPROEX SODIUM 500 MG TAB.SR.24H PO SCH ×2 (09:12→23:44)
[2020-03-02] MEDS: AMOXICILLIN TR/POT CLAVULANATE 875-125 MG TAB PO SCH ×2 (09:12→23:44)
--- NOTE | 2020-03-02 12:05 | PDOC PROGRESS REPORT ---
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 Now needing placement. 02/25/2020. Saw patient twice this morning, in the morning patient too somnolent to provide any history, saw patient again in the afternoon, patient arousable but falls asleep readily, again does not provide much history, as per primary nurse patient was agitated yesterday refusing to have her his blood drawn, a dose of IM Haldol was given which was not effective, following that patient was given a dose of IM Ativan, as per primary nurse patient did have his breakfast and lunch today, he is taking his medication. 02/26/2020. No acute events overnight. Patient has not been agitated. Still refusing blood draws. Patient this morning, comfortably seen with no apparent distress. Cooperative with physical examination. 02/27/2020. No acute events overnight. Patient also inappropriate with nursing staff occasionally, refusing his medication most of the time, refusing nursing assessment, saw patient this afternoon, comfortably sitting bed no apparent di stress, does not communicate much, awake and alert however mumbles incoherent words to most of my questions, took his medication this morning, when asked if he would let us do some blood draw from him he said no, when asked for reason he states to monitor glucose, after much persuasion patient agreed to have one-time blood draw. Does not allow physical examination. 02/28/2020. No acute events overnight. Saw patient this afternoon, comfortably resting in no apparent distress. Denies fever, chills, nausea, vomiting. Does not allow physical examination. 02/29/2020. No acute events overnight. Patient comfortably sitting on the edge of the bed does not appear to be in acute distress, alert and awake but unfortunately does not communicate much, when asked if he was okay he just shakes his head, when asked if I could examine him he shakes his head in agreement. Has been taking his medications as per primary nurse. 03/01/2020. No acute events overnight. Saw patient this morning sitting in his chair in no apparent distress, unfortunate patient does not communicate much, not appear to be in apparent distress. Per primary nurse patient has been refusing his medications again. 03/02/2020. No acute events overnight. Complaining of not being able to sleep overnight. Does not appear to be in any apparent distress. Ambulatory and p.o. tolerant. Reason For Visit: HYPONATREMIA Physical Exam Vital Signs: Temp Pulse Resp BP Pulse Ox 97.6 F 103 H 18 142/94 H 98 03/02/20 08:18 03/01/20 07:33 03/01/20 07:33 03/01/20 07:33 03/01/20 07:33 Intake & Output 03/01/20 03/02/20 03/03/20 06:59 06:59 06:59 Intake Total 320 1298 Balance 320 1298 Weight 79.5 kg 79.5 kg General appearance: PRESENT: no acute distress, well-developed, well-nourished Head exam: PRESENT: atraumatic, normocephalic Respiratory exam: PRESENT: clear to auscultation alan. ABSENT: rales, rhonchi, wheezes Cardiovascular exam: PRESENT: RRR. ABSENT: diastolic murmur, rubs, systolic murmur GI/Abdominal exam: PRESENT: normal bowel sounds, soft. ABSENT: distended, guarding, mass, organolmegaly, rebound, tenderness Neurological exam: PRESENT: alert, awake, oriented to person, oriented to place, CN II-XII grossly intact. ABSENT: motor sensory deficit Results Laboratory Results: 02/27/20 12:15 02/27/20 12:15 12/25/19 12/25/19 12/25/19 13:39 13:39 13:39 Creatine Kinase 176 H Cancelled Troponin I 0.068 NT-Pro-B Natriuret Pep 12/25/19 12/26/19 21:27 05:40 Creatine Kinase Troponin I 0.127 0.096 NT-Pro-B Natriuret Pep 818 H Impressions: Chest X-Ray 12/29/19 07:00 IMPRESSION: NO ACUTE RADIOGRAPHIC FINDING IN THE CHEST. Head CT 01/19/20 00:00 IMPRESSION: MILD CHRONIC CHANGES OF ATROPHY AND MICROVASCULAR ISCHEMIA. NO ACUTE PROCESS. EVIDENCE OF ACUTE STROKE: NO. Assessment and Plan - Diagnosis (1) Acute metabolic encephalopathy Is this a current diagnosis for this admission?: Yes Plan: At baseline Multifactorial: Hyponatremia superimposed on schizoaffective disorder, acute urinary retention Continue risperidone, buspar Needs nursing facility placement with locked unit Waxing and waning agitation seems to be his personal baseline mentation (2) Acute urinary retention Is this a current diagnosis for this admission?: Yes Plan: Resolved; now voiding spontaneously. Secondary to BPH. May also be related to anticholinergic medications. Avoid when able. Thorazine previously discontinued. Hess removed; voiding spontaneously (3) BPH (benign prostatic hyperplasia) Qualifiers: Lower urinary tract symptom presence: symptoms absent Qualified Code(s): N40.0 - Benign prostatic hyperplasia without lower urinary tract symptoms Is this a current diagnosis for this admission?: Yes Plan: Continue tamsulosin and Proscar (4) Dehydration Is this a current diagnosis for this admission?: Yes Plan: Resolved. (5) Emphysema lung Qualifiers: Emphysema type: centrilobular Qualified Code(s): J43.2 - Centrilobular emphysema Is this a current diagnosis for this admission?: Yes Plan: Stable and without exacerbation at this time. (6) Hypertension Is this a current diagnosis for this admission?: Yes Plan: Acceptable blood pressures Continue clonidine, cardizem, isosorbide Lisinopril discontinued secondary to BLANCA. (7) Hyponatremia Is this a current diagnosis for this admission?: Yes Plan: Improved; has been refusing blood draws, last blood draw 02/24/2020. Secondary to Primary polydipsia. Mental health service consultation obtained; they have reviewed his medication regiment and made recommendations with regard to his recurrent episodes of hyponatremia. Nephrology previously consulted; appreciate their assistance and recommendat ions. Liberalize dietary sodium; regular diet. Free water restricted to 1200 mL's daily. Continue Sodium tablet 1 gm QID Strict I&O's. (8) Pneumonia Qualifiers: Pneumonia type: due to unspecified organism Laterality: left Lung location: lower lobe of lung Qualified Code(s): J18.9 - Pneumonia, unspecified organism Is this a current diagnosis for this admission?: Yes Plan: Resolved (9) Primary polydipsia Is this a current diagnosis for this admission?: Yes Plan: Free water fluid restricted to 1200ml daily. Discussed w/ nursing that he may have salt containing fluids (Pepsi, Miguelina Jovita, Tomato juice). Continue strict I&Os (10) Schizophrenia Qualifiers: Schizophrenia type: unspecified Qualified Code(s): F20.9 - Schizophrenia, unspecified Is this a current diagnosis for this admission?: Yes Plan: - repeat CT head unremarkable Mental health services were consulted with following medication recommendations: Continue Depakote valium 5 mg Po q6 PRN; have increased to 10 mg q4hp Buspar 5MG twice a day Add Risperdal 0.25MG twice a day; have increased to 0.5 mg BID (11) Seizure Is this a current diagnosis for this admission?: Yes Plan: No further seizure activity. Seizure activity noted while in the emergency department. Received loading dose of Dilantin followed by twice daily dosing until the patient has been seizure-free for greater than 48 hours. Have discontinued. Sodium is now improved and no longer a potential cause of seizure activity (NA 132). Valporic acid level remains low; 47-> 41 We will continue seizure precautions and monitor closely. Continue Depakote; have increased to 750 mg BID (12) Tobacco abuse Is this a current diagnosis for this admission?: Yes Plan: Daily nicotine patch. (13) UTI (urinary tract infection) due to urinary indwelling catheter Qualifiers: Indwelling urinary catheter type: indwelling urethral catheter Encounter type: initial encounter Qualified Code(s): T83.511A - Infection and inflammatory reaction due to indwelling urethral catheter, initial encounter; N39.0 - Urinary tract infection, site not specified Is this a current diagnosis for this admission?: Yes Plan: UA reveals UTI Urine cultures show staph aureus resistant to fluoroquinolones. Blood cultures not obtained; patient refusing. Hess is removed. DC Levaquin; start Augmentin 875 twice daily; Day #3/7 as per ID recommendations. Unfortunately, patient continues to refuse lab work. Have not been able to obtain repeat CBC or blood cultures. However, his vital signs are stable without fever and patient largely appears to be asymptomatic. Should patient develop UTI symptoms or fever, will need to provide some sedation and obtain further lab work. Will plan to repeat urinalysis in the morning to assess response. - Plan Summary Summary: DVT ppx: heparin Dispo: He is awaiting placement [facility]. SW following. He does not always participate in the plan of care but at least he seems to be doing okay as long as he is left alone. Vital signs decrease to q shift - Time Time Spent with patient: 15-24 minutes Anticipated Discharge Disposition: [facility] Anticipated Discharge Timeframe: when bed available
[2020-03-02] MEDS ORDERED: TEMAZEPAM 15 MG CAPSULE PO PRN (12:06)
[2020-03-02] MEDS: FINASTERIDE 5 MG TABLET PO SCH (16:59)
[2020-03-02] MEDS: TAMSULOSIN HCL 0.4 MG CAP.SR.24H PO SCH (16:59)
[2020-03-03] MEDS: RISPERIDONE 0.25 MG TABLET PO SCH ×2 (09:58→22:30)
[2020-03-03] MEDS: DIVALPROEX SODIUM 250 MG TAB.SR.24H PO SCH ×2 (09:58→22:30)
[2020-03-03] MEDS: DILTIAZEM HCL 180 MG CAPSULE.CR PO SCH (09:58)
[2020-03-03] MEDS: BUSPIRONE HCL 10 MG TABLET PO SCH ×2 (09:59→22:30)
[2020-03-03] MEDS: AMOXICILLIN TR/POT CLAVULANATE 875-125 MG TAB PO SCH (09:59)
[2020-03-03] MEDS: DIVALPROEX SODIUM 500 MG TAB.SR.24H PO SCH ×2 (09:59→22:30)
[2020-03-03] MEDS: SODIUM CHLORIDE 1 GM TABLET PO SCH ×4 (10:20→22:30)
--- NOTE | 2020-03-03 15:29 | PDOC TRANSFER SUMMARY ---
Impression - Admit/DC Date/PCP Admission Date/Primary Care Provider: 12/25/19 19:24 Discharge Date: 03/03/20 - Discharge Diagnosis (1) UTI (urinary tract infection) due to urinary indwelling catheter Is this a current diagnosis for this admission?: Yes (2) Primary polydipsia Is this a current diagnosis for this admission?: Yes (3) Hyponatremia Is this a current diagnosis for this admission?: Yes (4) Schizophrenia Is this a current diagnosis for this admission?: Yes (5) Seizure Is this a current diagnosis for this admission?: Yes (6) Hypertension Is this a current diagnosis for this admission?: Yes (7) Acute metabolic encephalopathy Is this a current diagnosis for this admission?: Yes (8) BPH (benign prostatic hyperplasia) Is this a current diagnosis for this admission?: Yes (9) Acute urinary retention Is this a current diagnosis for this admission?: Yes (10) Emphysema lung Is this a current diagnosis for this admission?: Yes (11) Acute kidney injury Is this a current diagnosis for this admission?: Yes (12) Dehydration Is this a current diagnosis for this admission?: Yes (13) Tobacco abuse Is this a current diagnosis for this admission?: Yes (14) Pneumonia Is this a current diagnosis for this admission?: Yes (15) Altered mental status Is this a current diagnosis for this admission?: Yes - Additional Information Resuscitation Status: Full Code Discharge Diet: Regular, Other (Comments) - limit free water intake r/t chronic hyponatremia Discharge Activity: Activity As Tolerated Prescriptions: Buspirone HCl [Buspar 10 mg Tablet] 5 mg PO Q12 #15 tablet Diltiazem HCl [Cardizem Cd 180 mg Capsule] 360 mg PO DAILY #90 capsule.cr Clonidine [Catapres-Tts 1 (0.1 mg/24 Hr) Transderm Patch] 1 each TD Th@1000 #4 patch.tdwk Divalproex Sodium [Depakote ER 250 mg Tablet] 250 mg PO Q12 #60 tab.sr.24h Divalproex Sodium [Depakote ER 500 mg Tab.sr] 500 mg PO Q12 #60 tab.sr.24h Tamsulosin HCl [Flomax 0.4 mg Cap.sr] 0.4 mg PO PCSUPPER #30 cap.sr.24h Temazepam [Restoril 15 mg Capsule] 15 mg PO HSP PRN #30 capsule PRN Reason: Risperidone [Risperdal M-Tab 0.5 mg Odt Tablet] 0.5 mg PO Q12 #60 tab.rapdis Sodium Chloride [Sodium Chloride 1 gm Tablet] 1 gm PO QID #120 tablet Home Medications: Finasteride [Proscar 5 mg Tablet] 5 mg PO DAILY 07/13/16 Acetaminophen [Tylenol 325 mg Tablet] 650 mg PO Q4HP PRN tablet 03/03/20 Buspirone HCl [Buspar 10 mg Tablet] 5 mg PO Q12 #15 tablet 03/03/20 Clonidine [Catapres-Tts 1 (0.1 mg/24 Hr) Transderm Patch] 1 each TD Th@1000 #4 patch.tdwk 03/03/20 Diltiazem HCl [Cardizem Cd 180 mg Capsule] 360 mg PO DAILY #90 capsule.cr 03/03/20 Divalproex Sodium [Depakote ER 250 mg Tablet] 250 mg PO Q12 #60 tab.sr.24h 03/03/20 Divalproex Sodium [Depakote ER 500 mg Tab.sr] 500 mg PO Q12 #60 tab.sr.24h 03/03/20 Risperidone [Risperdal M-Tab 0.5 mg Odt Tablet] 0.5 mg PO Q12 #60 tab.rapdis 03/03/20 Sodium Chloride [Sodium Chloride 1 gm Tablet] 1 gm PO QID #120 tablet 03/03/20 Tamsulosin HCl [Flomax 0.4 mg Cap.sr] 0.4 mg PO PCSUPPER #30 cap.sr.24h 03/03/20 Temazepam [Restoril 15 mg Capsule] 15 mg PO HSP PRN #30 capsule 03/03/20 History of Present Illiness History of Present Illness: Per H&P by Dr. Ramsey: HU GARCIA is a 59 year old male with history of schizophrenia, gastroparesis reflux disease, COPD, history of hyponatremia was brought to the emergency room after he was found leaning up to both ears after walking for [address] he was an escape from [facility] and was placed on missing person file. Work-up in the ER indicates pneumonia, hyponatremia with a serum sodium of 116.8. ER physician discussed the case with Dr. Webb and also with ICU internet marketing strategist Dr. Webb was to give 50 mL of 3% normal saline. But ICU attending thinks patient does need to be in ICU does not need to be in 3% normal saline. Dr. flores called me for admission. After discussion with Dr. Webb, I requested Dr. Flores to give 3% normal saline 50 cc over 1 and half hour. I went to see the patient and he told me patient has a seizure-like activity and is able to give a Keppra. Also found to have a short brief of V. tach in the emergency room. The nurses have a hard time keeping the IV line in and he pulled a couple of IV lines. He was given a Catemine and IV line was accessed and started on 3% normal saline. I am going to admit the patient to IMCU but I requested Dr. flores to keep the patient in the ER tonight until mental status and hyponatremia improves. He agreed. pt is unable to give any history. Hospital Course Hospital Course: Patient has had a long hospital stay, primarily r/t difficulty with disposition; currently progress day #69. Over the course of his admission, he has been treated for Hyponatremia, UTI, Urinary retention, and Pneumonia. His acute medical problems have now been re solved and his chronic medical problems remain stable. He is now stable for discharge to a bed bug exterminator care facility. (1) Acute metabolic encephalopathy Resolved; now at baseline Multifactorial: Hyponatremia superimposed on schizoaffective disorder, acute urinary retention Continue risperidone, buspar Waxing and waning agitation seems to be his personal baseline mentation (2) Acute urinary retention Resolved; now voiding spontaneously. Secondary to BPH. May also be related to anticholinergic medications. Avoid when able. Thorazine previously discontinued. Hess removed; voiding spontaneously (3) BPH (benign prostatic hyperplasia) Continue tamsulosin and Proscar (4) Dehydration Resolved. (5) Emphysema lung Stable and without exacerbation at this time. (6) Hypertension Acceptable blood pressures Continue clonidine, cardizem, isosorbide (7) Hyponatremia Improved; 116-> 128.8 Secondary to Primary polydipsia. Mental health service consultation obtained; they have reviewed his medication regiment and made recommendations with regard to his recurrent episodes of hyponatremia. Nephrology previously consulted; appreciate their assistance and recommendations. Liberalize dietary sodium; regular diet. Monitor free water intake. Continue Sodium chloride 1 gm tab QID. (8) Pneumonia Resolved (9) Primary polydipsia Monitor free water intake and prevent over indulgence. Discussed w/ nursing; encourage salt containing fluids (Pepsi, Miguelina Jovita, Tomato juice). (10) Schizophrenia - repeat CT head unremarkable Mental health services were consulted with following medication recommendations: Continue Depakote Buspar 5MG twice a day Risperdal 0.5 MG twice a day (11) Seizure No further seizure activity. Seizure activity noted while in the emergency department. Sodium is now improved and no longer a potential cause of seizure activity (NA 128.8) Valproic acid level remains low; 47-> 41 Continue Depakote; have increased to 750 mg BID Recommend follow up valproic acid level on 03/21/20. (12) Tobacco abuse Daily nicotine patch. (13) UTI (urinary tract infection) due to urinary indwelling catheter Resolved. UA reveals UTI Urine cultures show staph aureus resistant to fluoroquinolones. Blood cultures not obtained; patient refusing. Hess has been removed. Received Augmentin 875 twice daily x7 days as per ID recommendations. Remains asymptomatic. Physical Exam Vital Signs: Temp Pulse Resp BP Pulse Ox 98.4 F 89 18 168/60 H 100 03/03/20 10:00 03/03/20 08:00 03/03/20 08:00 03/03/20 08:00 03/03/20 08:00 Intake & Output 03/02/20 03/03/20 03/04/20 06:59 06:59 06:59 Intake Total 1298 2460 260 Output Total 1210 Balance 1298 1250 260 Weight 79.5 kg 79.5 kg General appearance: PRESENT: no acute distress, cooperative - Intermittent periods of agitation; generally easily to redirect., well-developed, well- nourished - Overweight Head exam: PRESENT: atraumatic, normocephalic Eye exam: PRESENT: conjunctiva pink, EOMI, PERRLA. ABSENT: scleral icterus Mouth exam: PRESENT: moist, tongue midline Respiratory exam: PRESENT: clear to auscultation alan, symmetrical, unlabored. ABSENT: rales, rhonchi, wheezes Cardiovascular exam: PRESENT: RRR. ABSENT: diastolic murmur, rubs, systolic murmur Vascular exam: PRESENT: normal capillary refill Extremities exam: PRESENT: full ROM. ABSENT: calf tenderness, clubbing, pedal edema Musculoskeletal exam: PRESENT: ambulatory Neurological exam: PRESENT: alert, awake, oriented to person, oriented to place, CN II-XII grossly intact, other - baseline mentation. ABSENT: oriented to time, oriented to situation, motor sensory deficit Psychiatric exam: PRESENT: agitated - intermittent; generally easy to redirect, appropriate affect, normal mood. ABSENT: homicidal ideation, suicidal ideation Skin exam: PRESENT: dry, intact, warm. ABSENT: cyanosis, rash Results Laboratory Results: WBC 13.0 10^3/uL (4.0-10.5) H 02/27/20 12:15 RBC 3.89 10^6/uL (4.35-5.55) L 02/27/20 12:15 Hgb 11.7 g/dL (13.5-17.0) L 02/27/20 12:15 Hct 34.5 % (37.9-51.0) L 02/27/20 12:15 MCV 89 fl (80-97) 02/27/20 12:15 MCH 30.0 pg (27.0-33.4) 02/27/20 12:15 MCHC 33.8 g/dL (32.0-36.0) 02/27/20 12:15 RDW 13.8 % (11.5-14.0) 02/27/20 12:15 Plt Count 380 10^3/uL (150-450) 02/27/20 12:15 Lymph % (Auto) 17.9 % (13-45) 02/27/20 12:15 [place] % (Auto) 7.1 % (3-13) 02/27/20 12:15 Eos % (Auto) 3.5 % (0-6) 02/27/20 12:15 Baso % (Auto) 1.2 % (0-2) 02/27/20 12:15 Absolute Neuts (auto) 9.1 10^3/uL (1.7-8.2) H 02/27/20 12:15 Absolute Lymphs (auto) 2.3 10^3/uL (0.5-4.7) 02/27/20 12:15 Absolute Monos (auto) 0.9 10^3/uL (0.1-1.4) 02/27/20 12:15 Absolute Eos (auto) 0.4 10^3/uL (0.0-0.6) 02/27/20 12:15 Absolute Basos (auto) 0.2 10^3/uL (0.0-0.2) 02/27/20 12:15 Total Counted 100 02/24/20 20:05 Seg Neutrophils % 70.3 % (42-78) 02/27/20 12:15 Seg Neuts % (Manual) 73 % (42-78) 02/24/20 20:05 Band Neutrophils % 1 % (3-5) L 02/24/20 20:05 Lymphocytes % (Manual) 12 % (13-45) L 02/24/20 20:05 Monocytes % (Manual) 6 % (3-13) 02/24/20 20:05 Eosinophils % (Manual) 6 % (0-6) 02/24/20 20:05 Basophils % (Manual) 0 % (0-2) 02/24/20 20:05 Metamyelocytes % 2 % (0-1) H 02/24/20 20:05 Abs Neuts (Manual) 11.2 10^3/uL (1.7-8.2) H 02/24/20 20:05 Abs Lymphs (Manual) 1.8 10^3/uL (0.5-4.7) 02/24/20 20:05 Abs Monocytes (Manual) 0.9 10^3/uL (0.1-1.4) 02/24/20 20:05 Absolute Eos (Manual) 0.9 10^3/uL (0.0-0.6) H 02/24/20 20:05 Abs Basophils (Manual) 0.0 10^3/uL (0.0-0.2) 02/24/20 20:05 Platelet Comment ADEQUATE 02/24/20 20:05 Poikilocytosis SLIGHT 02/24/20 20:05 Ovalocytes SLIGHT 02/24/20 20:05 PT 13.7 SEC (11.4-15.4) 12/26/19 05:40 INR 1.03 12/26/19 05:40 Sodium 128.8 mmol/L (137-145) L 02/27/20 12:15 Potassium 4.5 mmol/L (3.6-5.0) 02/27/20 12:15 Chloride 95 mmol/L (98-107) L 02/27/20 12:15 Carbon Dioxide 22 mmol/L (22-30) 02/27/20 12:15 Anion Gap 12 (5-19) 02/27/20 12:15 BUN 15 mg/dL (7-20) 02/27/20 12:15 Creatinine 1.05 mg/dL (0.52-1.25) 02/27/20 12:15 Est GFR ( Amer) > 60 (>60) 02/27/20 12:15 Est GFR (MDRD) Non-Af > 60 (>60) 02/27/20 12:15 Glucose 138 mg/dL (75-110) H 02/27/20 12:15 Hemoglobin A1c % 5.2 % (4.7-6.0) 12/26/19 05:40 Serum Osmolality 255 mOsm/kg (275-301) L 12/26/19 05:40 Lactic Acid 1.3 mmol/L (0.7-2.1) 12/25/19 14:17 Calcium 8.8 mg/dL (8.4-10.2) 02/27/20 12:15 Phosphorus 4.1 mg/dL (2.5-4.5) 02/03/20 08:03 Magnesium 1.7 mg/dL (1.6-2.3) 02/27/20 12:15 Total Bilirubin 0.2 mg/dL (0.2-1.3) 02/27/20 12:15 Direct Bilirubin 0.1 mg/dL (0.0-0.4) 02/27/20 12:15 Neonat Total Bilirubin Not Reportable 02/27/20 12:15 Neonat Direct Bilirubin Not Reportable 02/27/20 12:15 Neonat Indirect Bili Not Reportable 02/27/20 12:15 AST 13 U/L (17-59) L 02/27/20 12:15 ALT 11 U/L (<50) 02/27/20 12:15 Alkaline Phosphatase 70 U/L (38-126) 02/27/20 12:15 Creatine Kinase 176 U/L (55-170) H 12/25/19 13:39 Creatine Kinase Cancelled 12/25/19 13:39 Troponin I 0.096 ng/mL 12/26/19 05:40 NT-Pro-B Natriuret Pep 818 pg/mL (<125) H 12/26/19 05:40 Total Protein 6.5 g/dL (6.3-8.2) 02/27/20 12:15 Albumin 3.3 g/dL (3.5-5.0) L 02/27/20 12:15 Triglycerides 70 mg/dL (<150) 12/26/19 05:40 Cholesterol 118.34 mg/dL (0-200) 12/26/19 05:40 LDL Cholesterol Direct 43 mg/dL (<100) 12/26/19 05:40 VLDL Cholesterol 14.0 mg/dL (10-31) 12/26/19 05:40 HDL Cholesterol 64 mg/dL (>40) 12/26/19 05:40 Lipase 125.6 U/L (23-300) 01/06/20 12:38 TSH 1.53 uIU/mL (0.47-4.68) 12/26/19 05:40 Urine Color YELLOW 02/20/20 09:30 Urine Appearance TURBID 02/20/20 09:30 Urine pH 6.0 (5.0-9.0) 02/20/20 09:30 Ur Specific [place] 1.010 02/20/20 09:30 Urine Protein 100 mg/dL (NEGATIVE) H 02/20/20 09:30 Urine Glucose (UA) NEGATIVE mg/dL (NEGATIVE) 02/20/20 09:30 Urine Ketones NEGATIVE mg/dL (NEGATIVE) 02/20/20 09:30 Urine Blood MODERATE (NEGATIVE) H 02/20/20 09:30 Urine Nitrite NEGATIVE (NEGATIVE) 02/20/20 09:30 Urine Nitrite (Reflex) NEGATIVE (NEGATIVE) 01/16/20 22:59 Urine Bilirubin NEGATIVE (NEGATIVE) 02/20/20 09:30 Urine Urobilinogen NEGATIVE mg/dL (<2.0) 02/20/20 09:30 Ur Leukocyte Esterase LARGE (NEGATIVE) H 02/20/20 09:30 Leukocyte Esterase Rfl SMALL (NEGATIVE) H 01/16/20 22:59 Urine WBC (Auto) >182 /HPF 02/20/20 09:30 Urine RBC (Auto) 88 /HPF 02/20/20 09:30 Urine WBC (Reflex) 9 /HPF 01/16/20 22:59 Urine WBC Clumps MANY /HPF 02/20/20 09:30 U Non-Squamous Epis Auto 13 /HPF 02/20/20 09:30 Urine Mucus (Auto) RARE /LPF 02/20/20 09:30 Urine Osmolality 269 mOsm/kg (300-900) L 12/26/19 12:15 Urine Sodium 80 mmol/L (30-90) 12/26/19 12:15 Urine Ascorbic Acid NEGATIVE (NEGATIVE) 02/20/20 09:30 Time Trough Drawn 0935 12/27/19 09:35 Vancomycin Trough 15.6 ug/mL (5.0-20.0) 12/27/19 09:35 Urine Opiates Screen NEGATIVE 12/25/19 13:39 Urine Methadone Screen NEGATIVE 12/25/19 13:39 Ur Barbiturates Screen NEGATIVE 12/25/19 13:39 Valproic Acid 41.6 ug/mL (50.0-120.0) L 02/20/20 09:05 Ur Phencyclidine Scrn NEGATIVE 12/25/19 13:39 Ur Amphetamines Screen NEGATIVE 12/25/19 13:39 U Benzodiazepines Scrn NEGATIVE 12/25/19 13:39 Urine Cocaine Screen NEGATIVE 12/25/19 13:39 U Marijuana (THC) Screen NEGATIVE 12/25/19 13:39 COVID-19 Source See comment 01/30/20 09:45 COVID-19 (RILEY) Not Detected (Not Detect) 01/30/20 09:45 12/25/19 12/25/19 12/26/19 13:39 21:27 05:40 Troponin I 0.068 0.127 0.096 NT-Pro-B Natriuret Pep 818 H Impressions: Chest X-Ray 12/25/19 13:54 IMPRESSION: Asymmetric opacities in the inferolateral aspect of the left hemithorax that could represent atelectasis or a pneumonia. Chest X-Ray 12/29/19 07:00 IMPRESSION: NO ACUTE RADIOGRAPHIC FINDING IN THE CHEST. Head CT 01/19/20 00:00 IMPRESSION: MILD CHRONIC CHANGES OF ATROPHY AND MICROVASCULAR ISCHEMIA. NO ACUTE PROCESS. EVIDENCE OF ACUTE STROKE: NO. Plan Plan of Treatment: Patient is discharged to SNF for long-term care. Time Spent: Greater than 30 Minutes Stroke Is this a Stroke Patient?: No Acute Heart Failure Is this a Heart Failure Patient?: No
[2020-03-03] MEDS: TAMSULOSIN HCL 0.4 MG CAP.SR.24H PO SCH (18:37)
[2020-03-03] MEDS: FINASTERIDE 5 MG TABLET PO SCH (18:37)
[2020-03-04] MEDS: BUSPIRONE HCL 10 MG TABLET PO SCH ×2 (11:06→23:02)
[2020-03-04] MEDS: RISPERIDONE 0.25 MG TABLET PO SCH ×2 (11:06→23:02)
[2020-03-04] MEDS: DIVALPROEX SODIUM 250 MG TAB.SR.24H PO SCH ×2 (11:06→23:02)
[2020-03-04] MEDS: DIVALPROEX SODIUM 500 MG TAB.SR.24H PO SCH ×2 (11:07→23:02)
[2020-03-04] MEDS: SODIUM CHLORIDE 1 GM TABLET PO SCH ×4 (11:07→23:02)
[2020-03-04] MEDS: DILTIAZEM HCL 180 MG CAPSULE.CR PO SCH (11:07)
[2020-03-04] MEDS ORDERED: RISPERIDONE 0.5 MG TAB.RAPDIS PO PRN (12:58)
--- NOTE | 2020-03-04 15:48 | PDOC PROGRESS REPORT ---
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 Now needing placement. Patient was seen on morning rounds. He is found resting in bed, comfortably, on room air. He says hello, but then tells me he does not want to talk. He does appear to be comfortable and is not noted to be in any acute distress. ROS is therefore limited. No stated concerns/requests. Per nursing, Patient continues to have adequate p.o. intake and is voiding without difficulty. Intermittent compliance with medications. Has been a bit agitated this morning. Is re-detectable by staff he knows well. Reason For Visit: HYPONATREMIA Physical Exam Vital Signs: Temp Pulse Resp BP Pulse Ox 98.6 F 111 H 19 135/89 H 95 03/04/20 10:00 03/04/20 08:07 03/04/20 08:07 03/04/20 08:07 03/04/20 08:07 Intake & Output 03/03/20 03/04/20 03/05/20 06:59 06:59 06:59 Intake Total 2460 1016 Output Total 1210 600 Balance 1250 416 Weight 79.5 kg 83.5 kg General appearance: PRESENT: no acute distress, cooperative, well-developed, well-nourished, other - Intermittent periods of agitation; generally easily to redirect Head exam: PRESENT: atraumatic, normocephalic Eye exam: PRESENT: conjunctiva pink, EOMI, PERRLA. ABSENT: scleral icterus Mouth exam: PRESENT: moist, tongue midline Respiratory exam: PRESENT: clear to auscultation alan, symmetrical, unlabored, other - room air. ABSENT: rales, rhonchi, wheezes Cardiovascular exam: PRESENT: RRR. ABSENT: diastolic murmur, rubs, systolic m urmur Vascular exam: PRESENT: normal capillary refill Extremities exam: PRESENT: full ROM. ABSENT: calf tenderness, clubbing, pedal edema Musculoskeletal exam: PRESENT: ambulatory Neurological exam: PRESENT: alert, awake, oriented to person, oriented to place, CN II-XII grossly intact, other - baseline. ABSENT: motor sensory deficit Psychiatric exam: PRESENT: agitated - intermittent, appropriate affect, normal mood. ABSENT: homicidal ideation, suicidal ideation Skin exam: PRESENT: dry, intact, warm. ABSENT: cyanosis, rash Results Laboratory Results: 02/27/20 12:15 02/27/20 12:15 12/25/19 12/25/19 12/25/19 13:39 13:39 13:39 Creatine Kinase 176 H Cancelled Troponin I 0.068 NT-Pro-B Natriuret Pep 12/25/19 12/26/19 21:27 05:40 Creatine Kinase Troponin I 0.127 0.096 NT-Pro-B Natriuret Pep 818 H Impressions: Chest X-Ray 12/29/19 07:00 IMPRESSION: NO ACUTE RADIOGRAPHIC FINDING IN THE CHEST. Head CT 01/19/20 00:00 IMPRESSION: MILD CHRONIC CHANGES OF ATROPHY AND MICROVASCULAR ISCHEMIA. NO ACUTE PROCESS. EVIDENCE OF ACUTE STROKE: NO. Assessment and Plan - Diagnosis (1) UTI (urinary tract infection) due to urinary indwelling catheter Qualifiers: Indwelling urinary catheter type: indwelling urethral catheter Encounter type: initial encounter Qualified Code(s): T83.511A - Infection and inflammatory reaction due to indwelling urethral catheter, initial encounter; N39.0 - Urinary tract infection, site not specified Is this a current diagnosis for this admission?: Yes Plan: Resolved. UA reveals UTI Urine cultures show staph aureus resistant to fluoroquinolones. Blood cultures not obtained; patient refusing. Hess has been removed. Received Augmentin 875 twice daily x7 days as per ID recommendations. Remains asymptomatic. (2) Primary polydipsia Is this a current diagnosis for this admission?: Yes Plan: Monitor free water intake and prevent over indulgence. Discussed w/ nursing; encourage salt containing fluids (Pepsi, Miguelina Jovita, Tomato juice). (3) Hyponatremia Is this a current diagnosis for this admission?: Yes Plan: Improved; 116-> 128.8 Secondary to Primary polydipsia. Mental health service consultation obtained; they have reviewed his medication regiment and made recommendations with regard to his recurrent episodes of hyponatremia. Nephrology previously consulted; appreciate their assistance and recommendations. Liberalize dietary sodium; regular diet. Monitor free water intake. Continue Sodium chloride 1 gm tab QID. (4) Schizophrenia Qualifiers: Schizophrenia type: unspecified Qualified Code(s): F20.9 - Schizophrenia, unspecified Is this a current diagnosis for this admission?: Yes Plan: - repeat CT head unremarkable Mental health services were consulted with following medication recommendations: Continue Depakote Buspar 5MG twice a day Risperdal 0.5 MG twice a day (5) Seizure Is this a current diagnosis for this admission?: Yes Plan: No further seizure activity. Seizure activity noted while in the emergency department. Sodium is now improved and no longer a potential cause of seizure activity (NA 128.8) Valproic acid level remains low; 47-> 41 Continue Depakote; have increased to 750 mg BID Recommend follow up valproic acid level on 03/21/20. (6) Hypertension Is this a current diagnosis for this admission?: Yes Plan: Acceptable blood pressures Continue clonidine, cardizem, isosorbide (7) Acute metabolic encephalopathy Is this a current diagnosis for this admission?: Yes Plan: Resolved; now at baseline Multifactorial: Hyponatremia superimposed on schizoaffective disorder, acute urinary retention Continue risperidone, buspar Waxing and waning agitation seems to be his personal baseline mentation (8) BPH (benign prostatic hyperplasia) Qualifiers: Lower urinary tract symptom presence: symptoms absent Qualified Code(s): N40.0 - Benign prostatic hyperplasia without lower urinary tract symptoms Is this a current diagnosis for this admission?: Yes Plan: Continue tamsulosin and Proscar (9) Acute urinary retention Is this a current diagnosis for this admission?: Yes Plan: Resolved; now voiding spontaneously. Secondary to BPH. May also be related to anticholinergic medications. Avoid when able. Thorazine previously discontinued. Hess removed; voiding spontaneously (10) Emphysema lung Qualifiers: Emphysema type: centrilobular Qualified Code(s): J43.2 - Centrilobular emphysema Is this a current diagnosis for this admission?: Yes Plan: Stable and without exacerbation at this time. (11) Acute kidney injury Is this a current diagnosis for this admission?: Yes Plan: Resolved. (12) Dehydration Is this a current diagnosis for this admission?: Yes Plan: Resolved. (13) Tobacco abuse Is this a current diagnosis for this admission?: Yes Plan: Daily nicotine patch. (14) Pneumonia Qualifiers: Pneumonia type: due to unspecified organism Laterality: left Lung location: lower lobe of lung Qualified Code(s): J18.9 - Pneumonia, unspecified organism Is this a current diagnosis for this admission?: Yes Plan: Resolved (15) Altered mental status Qualifiers: Altered mental status type: delirium Qualified Code(s): R41.0 - Disorientation, unspecified Is this a current diagnosis for this admission?: Yes Plan: Resolved. Acute metabolic encephalopathy. Likely multifactorial secondary to hyponatremia, acute illness (left lower lobe pneumonia), in the setting of medication noncompliance and schizophrenia. Head CT is unremarkable. Disease specific management as outlined elsewhere. - Time Time Spent with patient: 15-24 minutes Medications reviewed and adjusted accordingly: Yes Anticipated Discharge Disposition: [facility] Facility Anticipated Discharge Timeframe: within 24 hours
[2020-03-04] MEDS: TAMSULOSIN HCL 0.4 MG CAP.SR.24H PO SCH (18:15)
[2020-03-04] MEDS: FINASTERIDE 5 MG TABLET PO SCH (18:15)
[2020-03-05 05:06] VITALS: BP 112/88
== END 2020-03-05 07:30 | DRG 643 ==
LOC: ER 13:08 → EH 19:24 → 3S 12-26 02:53 → 4N 12-31 21:35
PROVIDERS: ADMIT Internal Medicine; ATTEND Registered Nurse
DX: E22.2 Syndrome of inappropriate secretion of antidiuretic hormone (principal); G93.41 Metabolic encephalopathy; T83.511A Infection and inflammatory reaction due to indwelling urethral catheter, initial encounter; N39.0 Urinary tract infection, site not specified; J18.9 Pneumonia, unspecified organism; N17.9 Acute kidney failure, unspecified; Z16.23 Resistance to quinolones and fluoroquinolones; F01.51 Vascular dementia, unspecified severity, with behavioral disturbance; E86.0 Dehydration; K21.9 Gastro-esophageal reflux disease without esophagitis; F25.9 Schizoaffective disorder, unspecified; F17.200 Nicotine dependence, unspecified, uncomplicated; J43.2 Centrilobular emphysema; G40.909 Epilepsy, unspecified, not intractable, without status epilepticus; I10 Essential (primary) hypertension; M19.90 Unspecified osteoarthritis, unspecified site; Z20.828 Contact with and (suspected) exposure to other viral communicable diseases; Y84.6 Urinary catheterization as the cause of abnormal reaction of the patient, or of later complication, without mention of misadventure at the time of the procedure; Z78.1 Physical restraint status; Z91.14 Patient's other noncompliance with medication regimen; Z79.899 Other long term (current) drug therapy; R63.1 Polydipsia; R33.9 Retention of urine, unspecified; Z75.1 Person awaiting admission to adequate facility elsewhere; N40.1 Benign prostatic hyperplasia with lower urinary tract symptoms; R33.8 Other retention of urine; B95.61 Methicillin susceptible Staphylococcus aureus infection as the cause of diseases classified elsewhere
CPT/HCPCS: 36415; 70450; 71045; 80048; 80053; 80061; 80069; 80164; 80202; 80307; 81001; 82550; 83036; 83605; 83690; 83735; 83880; 83930; 83935; 84300; 84443; 84484; 85025; 85027; 85610; 87040; 87070; 87077; 87086; 87088; 87186; 87635; 94640; 96365; 96366; 96367; 96372; 96375; 99285; C9113; C9803; J0690; J1165; J1630; J1644; J2060; J2543; J3230; J3370; J3486; J3490; J7030; J7050; J7060; S0119